=== PATIENT | male | born 1940 | race Caucasian/White ===

== ENCOUNTER → 2016-11-26 | Outpatient (CLI) | payer OTHER, MEDICARE ==
[~2016-11-26] MED LIST: ALEN70TA4 PO; ALFU10TA2 PO; ALLO300T2 PO; ASPCH81X PO; ASPI325T45 PO; CALCTAB7 PO; CPR/500 PO; DICL-201 PO; ERGO1TAB12 PO; FINA5TAB PO; FOLI1TAB7 PO; LIFI5DRO OPB; LORA10CA2 PO; LVQ750 PO; MAGN400T6 PO; MECL1TAB42 PO; METH1CHW PO; METO100T44 PO; METO50TA16 PO; METO50TA7 PO; METR-163 PO; MISO200T PO; MTR500 PO; NF656 TD; OMEG-10 PO; OMEG10007 PO; ONDA4TAB10 SL; PRLSR20 PO; ROSU20TA PO; ROSU5TAB PO; SOFTSOL OP; URSO300C4 PO
[2016-11-26 11:09] LABS: ESTIMATED AVERAGE GLUCOSE 166 mg/dl; HA1C FLAG Normal (Normal)
[2016-11-26 15:06] LABS: MAGNESIUM 1.9 mg/dl (1.8-2.4); PROSTATE SPECIFIC ANTIGEN 0.427 ng/ml (0.000-4.000)
== END | disposition home or self-care (01) ==
LOC: C.LABBC 09:11
PROVIDERS: ATTEND Urology
DX: E11.9 Type 2 diabetes mellitus without complications (principal); E83.42 Hypomagnesemia; E78.5 Hyperlipidemia, unspecified; N40.1 Benign prostatic hyperplasia with lower urinary tract symptoms; R33.9 Retention of urine, unspecified; R35.1 Nocturia

== ENCOUNTER → 2017-02-11 | Outpatient (CLI) | payer OTHER, MEDICARE ==
[~2017-02-11] MED LIST changes: -ALFU10TA2 PO; +ALFU10TA30 PO; -ASPI325T45 PO; -METO100T44 PO; +METO1TAB69 PO; -METR-163 PO; -NF656 TD; -SOFTSOL OP
== END | disposition home or self-care (01) ==
LOC: C.MAMM 10:51
PROVIDERS: ATTEND Family Medicine
DX: M85.89 Other specified disorders of bone density and structure, multiple sites (principal)

== ENCOUNTER → 2017-02-12 | Outpatient (CLI) | payer OTHER, MEDICARE ==
--- NOTE | 2017-02-12 15:16 | DIAGNOSTIC IMAGING REPORT ---
SI JOINTS 3 OR MORE VIEWS CLINICAL HISTORY: GENERALIZED OSTEOARTHRITIS OF MULTI SITES pain COMPARISON STUDY: None FINDINGS: Moderate degenerative change of the sacroiliac joints as well as low lumbar spine. Generalized osteopenia. Sacral foramina are symmetric bilaterally. No evidence of bony ankylosis. IMPRESSION: Moderate degenerative change of the sacral iliac regions bilaterally. No evidence of bony ankylosis. Osteopenia. The above report was generated using voice recognition software. It may contain grammatical, syntax or spelling errors. Electronically signed by: Guillermo Allan M.D. 02/12/2017 3:15 PM Dictated Date/Time: 02/12/2017 3:14 PM
--- NOTE | 2017-02-12 15:18 | DIAGNOSTIC IMAGING REPORT ---
RIGHT HAND MIN 3 VIEWS ROUTINE CLINICAL HISTORY: GENERALIZED OSTEOARTHRITIS OF MULTIPLE SITES, ULCERATIVE COL Right pain COMPARISON: None. DISCUSSION: Considerable degenerative change of the radiocarpal as well as intercarpal joints throughout. Severe degenerative change first carpometacarpal joint. Moderate degenerative change of the metacarpal phalangeal as well as interphalangeal joints. This is most severe at the level of the right thumb. There is no evidence for soft tissue swelling. IMPRESSION: Considerable degenerative change of the articular services of the wrist and to a lesser extent hand. The above report was generated using voice recognition software. It may contain grammatical, syntax or spelling errors. Electronically signed by: Guillermo Allan M.D. 02/12/2017 3:17 PM Dictated Date/Time: 02/12/2017 3:16 PM
--- NOTE | 2017-02-12 15:28 | DIAGNOSTIC IMAGING REPORT ---
LEFT HAND MIN 3 VIEWS ROUTINE HISTORY: 76 years-old Male GENERALIZED OSTEOARTHRITIS OF MULTIPLE SITES, ULCERATIVE COL COMPARISON: Left hand radiographs 03/19/2016 TECHNIQUE: 3 views of the left hand FINDINGS: The bones are moderately demineralized. Severe degenerative changes with adjacent fragment osteophytes, subchondral sclerosis and cystic change involves the first carpometacarpal joint. At least moderate triscaphe osteoarthritis is also noted. Chondrocalcinosis is seen within the distribution of the TFCC. At least moderate interphalangeal joint space narrowing is seen throughout all the digits, notably within the interphalangeal joint of the first digit and PIP joint of the second digit. There is no acute fracture, dislocation or erosive arthropathy. There is mild subluxation of the first metacarpophalangeal joint, likely degenerative related. There is moderate cartilage loss or arthritis. No radio opaque foreign body. IMPRESSION: 1. No acute fracture or dislocation. 2. Multifocal degenerative changes about the wrist and hand as above with severe osteoarthritis of the first carpal metacarpal joint. 3. Chondrocalcinosis of the TFCC. The above report was generated using voice recognition software. It may contain grammatical, syntax or spelling errors. Electronically signed by: Joel Gee M.D. 02/12/2017 3:26 PM Dictated Date/Time: 02/12/2017 3:24 PM
[2017-02-12 16:00] LABS: BLOOD UREA NITROGEN 21 mg/dl (7-18); BUN/CREATININE RATIO 17.5 (10-20); CALCIUM 8.8 mg/dl (8.5-10.1); CARBON DIOXIDE 27 mmol/L (21-32); CHLORIDE 110 mmol/L (98-107); GLUCOSE 111 mg/dl (70-99); POTASSIUM 4.5 mmol/L (3.5-5.1); SODIUM 141 mmol/L (136-145)
[2017-02-12 16:04] LABS: RHEUMATOID FACTOR < 10.0 U/mL (0-15); TOTAL IRON BINDING CAPACITY 434 mcg/dl (250-450)
[2017-02-13 06:20] LABS: ESTIMATED AVERAGE GLUCOSE 157 mg/dl; HA1C FLAG Normal (Normal)
== END | disposition home or self-care (01) ==
LOC: C.LAB1850 14:47
PROVIDERS: ATTEND Internal Medicine Rheumatology
DX: E11.9 Type 2 diabetes mellitus without complications (principal); K51.90 Ulcerative colitis, unspecified, without complications; M53.3 Sacrococcygeal disorders, not elsewhere classified; M85.88 Other specified disorders of bone density and structure, other site; M19.031 Primary osteoarthritis, right wrist; M19.032 Primary osteoarthritis, left wrist; M18.12 Unilateral primary osteoarthritis of first carpometacarpal joint, left hand; M11.232 Other chondrocalcinosis, left wrist

== ENCOUNTER 2017-04-26 23:42 | Inpatient (IN) | payer OTHER, MEDICARE ==
[~2017-04-26] VITALS: Ht 175.3 cm; Wt 83.0 kg
[~2017-04-26 23:42] MED LIST changes: -METO1TAB69 PO; -METO50TA7 PO; -ROSU5TAB PO
[2017-04-26] MEDS ORDERED: ONDANSETRON INJ 2 MG/ML 2 ML VIAL ONE (23:55)
[2017-04-26] MEDS ORDERED: SODIUM CHLORIDE 0.9% 1000ML 1,000 ML IV STA (23:59)
[2017-04-27] VITALS (17 sets, daily range): BP systolic 98–149; BP diastolic 50–84; PULSE 64–96; TEMP 36.5–36.7; O2SAT 90–99; Ht 175.3 cm; Wt 83.0 kg
[2017-04-27 00:10] LABS: MEAN CORPUSCULAR HGB CONC 32.8 g/dl (32-36)
[2017-04-27 00:15] LABS: PROTHROMBIN TIME (PATIENT) 10.9 SECONDS (9.0-12.0)
[2017-04-27] MEDS ORDERED: ONDANSETRON INJ 2 MG/ML 2 ML VIAL ONE (00:15)
[2017-04-27] MEDS ORDERED: OMEG10007 PO (00:23)
[2017-04-27] MEDS ORDERED: OMEG-10 PO (00:29)
[2017-04-27] MEDS ORDERED: ASPI325T45 PO (00:29)
[2017-04-27 00:30] LABS: ALB/GLOB RATIO 0.9 (0.9-2); ALKALINE PHOSPHATASE 206 U/L (45-117); ALT/SGPT 122 U/L (12-78); AST/SGOT 120 U/L (15-37); BLOOD UREA NITROGEN 14 mg/dl (7-18); BUN/CREATININE RATIO 9.8 (10-20); CALCIUM 8.9 mg/dl (8.5-10.1); CARBON DIOXIDE 15 mmol/L (21-32); CHLORIDE 105 mmol/L (98-107); GLUCOSE 204 mg/dl (70-99); MAGNESIUM 2.1 mg/dl (1.8-2.4); POTASSIUM 2.9 mmol/L (3.5-5.1); SODIUM 139 mmol/L (136-145)
[2017-04-27] MEDS ORDERED: SOFTSOL OP (00:31)
[2017-04-27] MEDS ORDERED: METR-163 PO (00:31)
[2017-04-27 00:34] LABS: BASO % 0.2 %; BASO ABS # 0.02 K/uL (0-0.2); COMPLETE YES; EOS % 0.8 %; HEMATOCRIT 42.1 % (42-52); LYMPH % 28.2 %; LYMPH ABS # 2.51 K/uL (1.2-3.4); MEAN CORPUSCULAR HEMOGLOBIN 29.5 pg (25-34); MEAN PLATELET VOLUME 13.2 fL (7.4-10.4); NEUT % 61.8 %; PLATELET COUNT 126 K/uL (130-400); PLT ESTIMATE DECREASED; RED BLOOD COUNT 4.68 M/uL (4.7-6.1); WHITE BLOOD COUNT 8.89 K/uL (4.8-10.8)
[2017-04-27 00:41] LABS: ISTAT HEMOGLOBIN 14.6 g/dl (14.0-18.0); ISTAT IONIZED CALCIUM 1.08 mmol/l (1.12-1.32)
[2017-04-27] MEDS ORDERED: DiphenhydrAMINE HCL 50 MG/ML VIAL IV STA (00:52)
[2017-04-27] MEDS ORDERED: POTASSIUM CHLORIDE 10 MEQ / 100ML WTR IV STA (00:54)
[2017-04-27] MEDS ORDERED: METOCLOPRAMIDE HCL INJ 5 MG/ML 2 ML VIAL IV SCH (01:00)
[2017-04-27] MEDS ORDERED: METRONIDAZOLE 500MG / 100ML NSS IV STA (01:01)
[2017-04-27] MEDS ORDERED: LEVAQUIN 750MG / 150ML D5W IV STA (01:01)
[2017-04-27 01:08] LABS: URINE APPEARANCE CLEAR (CLEAR); URINE COLOR DK YELLOW; URINE NITRITE NEG (NEG); URINE SPECIFIC GRAVITY 1.012 (1.000-1.030); UROBILINOGEN NEG (NEG)
[2017-04-27 01:11] LABS: MANUAL MICROSCOPIC REQUIRED? NO; REVIEW REQ? NO; URINE BILIRUBIN NEG (NEG)
[2017-04-27] MEDS ORDERED: VANCOMYCIN INJ 1,000 MG in SODIUM CHLORIDE 0.9% 250ML 250 ML IV STA (01:50)
[2017-04-27] MEDS ORDERED: PIPERACILLIN/TAZOBACTAM 4.5 GM/100ML D5W IV STA (01:50)
[2017-04-27] MEDS ORDERED: VANCOMYCIN INJ 2,000 MG in SODIUM CHLORIDE 0.9% 500ML 500 ML IV STA (01:56)
[2017-04-27] MEDS ORDERED: ONDANSETRON 4MG OD TAB SL PRN (02:00)
[2017-04-27] MEDS ORDERED: ACETAMINOPHEN 325 MG TAB PO PRN (02:00)
[2017-04-27] MEDS ORDERED: HYDROmorphone HCL 2 MG TAB PO PRN (02:00)
[2017-04-27] MEDS ORDERED: MECLIZINE HCL 25 MG TAB PO PRN (02:00)
[2017-04-27] MEDS ORDERED: LORATADINE 10 MG TAB PO PRN (02:00)
[2017-04-27] MEDS ORDERED: ONDANSETRON INJ 2 MG/ML 2 ML VIAL IV PRN ×2 (02:00)
[2017-04-27] MEDS ORDERED: ALUMINUM/MAGNESIUM/SIMETH (MAALOX MAX) 30 ML UDC PO PRN (02:00)
[2017-04-27] MEDS ORDERED: LORAZEPAM 2 MG/ML 1 ML VIAL IV PRN (02:00)
[2017-04-27] MEDS: NSS + 20MEQ KCL 1000ML 1,000 ML IV SCH ×3 (02:25→17:02)
[2017-04-27 02:37] LABS: VEN BLD GAS O2 SATURATION 80.1 %; VEN BLOOD GAS BASE EXCESS -7.9 mEq/L
--- NOTE | 2017-04-27 02:48 | EMERGENCY ROOM VISIT NOTE ---
History Report prepared by [place]: Kita Bridges Under the Supervision of: Dr. Roro Robertson D.O. 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 He presents to the ED by EMS. He was watching the game at home with his neighbor. As the game ended, he let out a groan and began foaming at the mouth and leaning to a side. He was not responding to questions. He was not shaking. When EMS arrived, he had rolled onto the floor. He was combative with EMS. He then became apneic. His oxygen saturation was 88 on room air. EMS notes that he kept gazing to the right. He would alternate between being apneic and combative. He states that he is nauseous. He denies any headache, abdominal pain, or other pain. The history is limited due to AMS. EMS noted on their stroke assessment the patient's right upper extremity was weaker than the left. 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 Social History Smoking Status: Never Smoker Marital Status: Current/Historical Medications Scheduled Alendronate Sodium (Fosamax), 70 MG PO WK Alfuzosin Hcl (Uroxatral), 10 MG PO HS Allopurinol (Zyloprim), 300 MG PO QAM Aspirin (Aspirin Chewable), 81 MG PO DAILY Calcium Carbonate-Vitamin D W/ (Caltrate 600 Plus), 1 TAB PO QAM Diclofenac (Voltaren), 75 MG PO QAM Ergocalciferol (Vitamin D2), 1.25 MG PO WK Finasteride (Proscar), 5 MG PO QPM Fish Oil ([place]-3), 1,200 MG PO QAM Folic Acid (Folvite), 1 MG PO QPM Magnesium Oxide (Mag-Ox), 400 MG PO QAM Methylcobalamin ([id number]), 1,000 MCG PO MONTHLY Metoprolol Tartrate (Lopressor) (Lopressor), 75 MG PO QAM Metoprolol Tartrate (Lopressor) (Lopressor), 100 MG PO HS Metronidazole (Flagyl), 500 MG PO daily at lunch Misoprostol (Cytotec), 200 MCG PO QAM [place]-3 Fatty Acids-Cholecalci (Dry Eye [place] Benefits/Vi), 4 CAP PO QAM Omeprazole (Prilosec), 20 MG PO QAM Rosuvastatin Calcium (Crestor), 20 MG PO HS Soft Lens Products (B & L Sensitive Eyes Plus), 1 DROP OP AMPM Ursodiol (Actigall), 300 MG PO AMPM Scheduled PRN Aspirin (Aspirin), 325 MG PO UD PRN for Migraine Ciprofloxacin (Ciprofloxacin HCl), 500 MG PO BID PRN for PSC Loratadine (Claritin), 10 MG PO QAM PRN for Seasonal Allergies Meclizine Hcl (Meclizine Hcl), 25 MG PO TID PRN for Dizziness or Vertigo Ondasetron Odt (Zofran Odt), 4 MG SL Q6H PRN for Nausea Allergies Coded Allergies: Codeine (Verified Adverse Reaction, Unknown, INTOLERANT ALL NARCOTICS EXC FENTANYL, 04/27/17) Eggs or Egg-derived Products (Verified Adverse Reaction, Unknown, rash with large quantities of egg, 04/27/17) NO ISSUE WITH PROPOFOL Flu Virus Vaccine (Verified Adverse Reaction, Unknown, pt had rash with lg quantities of egg, 04/27/17) Meperidine (Verified Adverse Reaction, Unknown, INTOLERANT ALL NARCOTICS EXC FENTANYL, 04/27/17) Morphine (Verified Adverse Reaction, Unknown, NAUSEA, VOMITING, FLUSHED, 04/27/17) NAUSEA,VOMITING,FLUSHED Physical Exam Vital Signs Date Time Temp Pulse Resp B/P (MAP) Pulse Ox O2 Delivery O2 Flow Rate FiO2 04/27/17 01:32 94 Nasal Cannula 4.0 04/27/17 01:29 99 18 130/68 94 Nasal Cannula 4.0 04/27/17 01:04 102 20 149/78 94 Nasal Cannula 4.0 04/27/17 00:53 103 20 144/71 97 Non-Rebreather 15.0 04/27/17 00:18 101 20 141/75 97 Non-Rebreather 15.0 04/26/17 23:57 104 04/26/17 23:52 36.6 106 22 85 Room Air Physical Exam GENERAL: Alert, but somnolent. NIH stroke score of 14. Pt with gagging. EYE EXAM: normal conjunctiva, PERRL and EOM's grossly intact. No gaze deviation. OROPHARYNX: no exudate, no erythema, lips, buccal mucosa, and tongue normal and mucous membranes are moist NECK: supple, no nuchal rigidity, no adenopathy, non-tender LUNGS: Diminished. No wheezes, rhonchi, rales. HEART: no murmurs, S1 normal and S2 normal ABDOMEN: abdomen soft, non-tender, normo-active bowel sounds, no pulsatile masses, no rebound or guarding. Stoma and bag in LLQ. Prior surgical scars which are well healed. BACK: Back is symmetrical on inspection and there is no deformity, no midline tenderness, no CVA tenderness. SKIN: no rashes and no bruising EXTREMITIES: Normal pulses. No pitting edema. Moving them spontaneously but will not follow commands appropriately during stroke assessment. NEURO EXAM: Pt confused with slightly slurred speech. Moving all 4 extremities spontaneously, but seems slightly weaker in RUE. Prior surgical scar which is well healed to the right shoulder. Exam limited due to patient's neuro status Medical Decision & Procedures ER Provider Diagnostic Interpretation: Xray results have been interpreted by me. KUB X-ray: No definite SBO. Sutures noted along the right abdomen which is unchanged compared to prior. Chest X-ray: Right shoulder hardware noted. No effusion. Cardiomegaly. Patient rotated. Generous mediastinum. No focal infiltrate. Poor inspiratory effort. Radiology results have been interpreted by the [facility] radiologist and reviewed by me. CT Head: No ICH, mass effect, or edema. No evidence of acute cortical stroke. Periventricular small vessel ischemic change. Limited scattered areas of encephalomalacia as visualized within the right cerebellum. Cavum septum pellucidum et vergae, variant anatomy. Limited mucosal thickening right maxillary sinus. Laboratory Results Test 04/26/17 23:51 04/27/17 00:25 04/27/17 00:28 04/27/17 00:45 RDW Standard Deviation 65.7 fL (36.4-46.3) RDW Coefficient of Variation 19.9 % (11.5-14.5) White Blood Count 8.89 K/uL (4.8-10.8) Red Blood Count 4.68 M/uL (4.7-6.1) Hemoglobin 13.8 g/dL (14.0-18.0) Hematocrit 42.1 % (42-52) Mean Corpuscular Volume 90.0 fL (80-100) Mean Corpuscular Hemoglobin 29.5 pg (25-34) Mean Corpuscular Hemoglobin Concent 32.8 g/dl (32-36) Platelet Count 126 K/uL (130-400) Mean Platelet Volume 13.2 fL (7.4-10.4) Neutrophils (%) (Auto) 61.8 % Lymphocytes (%) (Auto) 28.2 % Monocytes (%) (Auto) 8.0 % Eosinophils (%) (Auto) 0.8 % Basophils (%) (Auto) 0.2 % Neutrophils # (Auto) 5.49 K/uL (1.4-6.5) Lymphocytes # (Auto) 2.51 K/uL (1.2-3.4) Monocytes # (Auto) 0.71 K/uL (0.11-0.59) Eosinophils # (Auto) 0.07 K/uL (0-0.5) Basophils # (Auto) 0.02 K/uL (0-0.2) Immature Granulocyte % (Auto) 1.0 % Immature Granulocyte # (Auto) 0.09 K/uL (0.00-0.02) Platelet Estimate DECREASED Troponin I < 0.015 ng/ml (0-0.045) Chemistry Specimen Hemolysis Ethyl Alcohol mg/dL < 3.0 mg/dl (0-3) Bedside Glucose 213 mg/dl (70-99) Bedside Hemoglobin 14.6 g/dl (14.0-18.0) Bedside Hematocrit 43 % (42-52) Bedside Sodium 140 mEq/L (135-144) Bedside Potassium 2.6 mEq/L (3.3-5.0) Bedside Chloride 106 mEq/L (101-112) Bedside Total CO2 16 mEq/l (24-31) Bedside Blood Urea Nitrogen 13 mg/dl (7-18) Bedside Creatinine 1.0 mg/dl (0.6-1.3) Bedside Glucose (other) 237 mg/dl (70-99) Bedside Ionized Calcium ([place]) 1.08 mmol/l (1.12-1.32) Urine Color DK YELLOW Urine Appearance CLEAR (CLEAR) Urine pH 5.0 (4.5-7.5) Urine Specific [place] 1.012 (1.000-1.030) Urine Protein NEG (NEG) Urine Glucose (UA) NEG (NEG) Urine Ketones TRACE (NEG) Urine Occult Blood 1+ (NEG) Urine Nitrite NEG (NEG) Urine Bilirubin NEG (NEG) Urine Urobilinogen NEG (NEG) Urine Leukocyte Esterase TRACE (NEG) Urine WBC (Auto) 1-5 /hpf (0-5) Urine RBC (Auto) 5-10 /hpf (0-4) Urine Hyaline Casts (Auto) 1-5 /lpf (0-5) Urine Epithelial Cells (Auto) 5-10 /lpf (0-5) Urine Bacteria (Auto) NEG (NEG) Laboratory results per my review. Medications Administered Medications (Trade) Dose Ordered Sig/Alberto Route Start Time Stop Time Status Last Admin Dose Admin Ondansetron HCl (Zofran Inj) 4 mg STK-MED ONCE .ROUTE 04/26/17 23:55 04/26/17 23:56 DC 04/27/17 00:13 4 MG Sodium Chloride 1,000 ml @ 125 mls/hr Q8H STAT IV 04/26/17 23:59 04/27/17 02:43 DC 04/26/17 23:59 125 MLS/HR Ondansetron HCl (Zofran Inj) 4 mg STK-MED ONCE .ROUTE 04/27/17 00:15 04/27/17 00:16 DC 04/27/17 00:15 4 MG Metoclopramide HCl (Reglan Inj) 10 mg Q6H IV 04/27/17 01:00 04/27/17 03:21 DC 04/27/17 01:23 10 MG Diphenhydramine HCl (Benadryl Inj) 12.5 mg NOW STAT IV 04/27/17 00:52 04/27/17 00:53 DC 04/27/17 01:23 12.5 MG Potassium Chloride (Kcl 10 Meq / Wtr) 10 meq NOW STAT IV 04/27/17 00:54 04/27/17 00:56 DC 04/27/17 01:23 10 MEQ Metronidazole (Flagyl / Nss) 500 mg NOW STAT IV 04/27/17 01:01 04/27/17 01:03 DC 04/27/17 01:01 500 MG Levofloxacin (Levaquin / D5W) 750 mg NOW STAT IV 04/27/17 01:01 04/27/17 13:27 DC 04/27/17 01:23 750 MG Piperacillin Sod/ Tazobactam Sod (Zosyn Iv) 4.5 gm NOW STAT IV 04/27/17 01:50 04/27/17 01:55 DC 04/27/17 03:30 4.5 GM Potassium Chloride/Sodium Chloride 1,000 ml @ 150 mls/hr Q6H40M IV 04/27/17 01:51 05/27/17 01:50 04/28/17 01:12 150 MLS/HR Vancomycin HCl 2000 mg/Sodium Chloride 540 ml @ 200 mls/hr NOW STAT IV 04/27/17 01:56 04/27/17 04:37 DC 04/27/17 03:30 200 MLS/HR ECG Indication: altered mental status Rate (beats per minute): 106 Rhythm: sinus tachycardia Findings: no acute ischemic change, other (normal axis, normal intervals) ED Course 2349: The patient was evaluated in room A1. A complete history and physical exam was performed. 2355: Zofran Inj 4 mg IV. 2359: NSS 1000 ml @ 125 mls/hr IV. 0007: Looking through prior records, the patient is a full code as of last month. 0010: I reevaluated the patient. 0015: Zofran Inj 4 mg IV. 0016: I reevaluated the patient. is now at bedside. The patient is answering some of her questions. 0023: Dr. Woodruff the [facility] radiologist called to inform me that the head CT is negative. 0026: I reexamined the patient at bedside. I updated at bedside. Patient is still confused with slight right arm weakness and bilateral lower extremity weakness. 0032: I reevaluated the patient. I updated the stroke nurses on the plan. 0039: I discussed the patients case with Dr. Sosa [facility] neurology telemedicine. He will evaluate the patient by video link. 0043: I reevaluated the patient. I updated his on the plan. 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 She notes that he is due for an ERCP and follows at [place]. 0052: Benadryl Inj 12.5 mg IV. 0054: Potassium Chloride 10 meq IV. 0100: Reglan Inj 10 mg IV. 0101: Levofloxacin 750 mg IV, Metronidazole 500 mg IV. 0117: Dr. Sosa has evaluated the patient. He does not think tPA is needed. He thinks this might be an epileptic event. He recommends admitting the patient for MRI and EEG. 0131: I reviewed the patient's case with Dr. Lantigua's resident, [facility] hospitalist service. They will evaluate the patient for further management. 0150: The patient has been seen at bedside by Dr. Lantigua. Medical Decision Differential diagnoses includes but is not limited to toxic, metabolic, infectious, traumatic, cardiac, neurologic, hematologic, psychiatric and inflammatory etiologies. Patient initially unresponsive and EMS called, given initial findings of deviated gaze, confusion, and right upper extremity weakness, concern initially for possible stroke. Stroke alert activated and patient sent immediately for head CT. Labs and additional imaging and completed, and case discussed with [place] neurology. They didn't evaluation via the monitor at bedside. Patient slowly continued to improve here and became more awake, did not have any more episodes of apnea or oxygen desaturation. Patient's strength is fully began to improve as well. Because of patient's improving symptoms and on repeat exams lack of lateralizing or focal findings, patient was not felt to be a TPA candidate. Neurology thought perhaps patient may have even had a seizure, and recommended follow-up with MRI and EEG. While they were performing their bedside evaluation, additional labs returned on the patient showing elevated LFTs. In light of the patient's history of primary biliary sclerosis, blood cultures and lactic acid were added, and patient started on IV antibiotics as a precaution. Patient initially discussed with medicine and discussed additional imaging for further evaluation of his right upper quadrant. After discussion an MRCP was ordered. Patient's lactic acid returned at 8. Concerned that this could've been due to vomiting versus seizure versus evolving infectious etiology. Patient afebrile initially and no leukocytosis. Patient did not initially meet sepsis criteria. Patient was evaluated by the hospitalist for admission. Patient found to have hypokalemia also, initially started on IV replacement with the hope that he could be converted to oral replacement should his nausea vomiting improve. Medication Reconcilliation Current Medication List: was personally reviewed by me Blood Pressure Screening Patient's blood pressure: Elevated blood pressure Blood pressure disposition: Elevated BP felt to be situational Consults Time Called: 28 Consulting Physician: Dr. Sosa, [facility] neurology telemedicine Returned Call: [phone] I discussed the patients case with him. He will evaluate the patient by video link. Additional Consults: Time Called: 012 Consulted Physician: Dr. Lantigua's resident, [facility] hospitalist service Returned Call: [phone] Additional Comments: I reviewed the patient's case with her. They will evaluate the patient for further management. Impression Primary Impression: Unresponsive episode Additional Impressions: Confusion Abnormal LFTs Vomiting Hypokalemia Critical Care I have personally spent 45 minutes of critical care time in the direct management of this patient. This includes bedside care, interpretation of diagnostic studies, and testing, discussion with consultants, patient, and family members, and other required patient management activities. This 45 minutes is in excess of all separately billable procedures. Scribe Attestation The scribe's documentation has been prepared under my direction and personally reviewed by me in its entirety. I confirm that the note above accurately reflects all work, treatment, procedures, and medical decision making performed by me. Departure Information Dispostion Being Evaluated By Hospitalist Referrals Tom Bucio M.D. (PCP) Stroke History Time Last Known Well 2300 Stroke t-PA Criteria Reviewed Does NOT meet criteria for t-PA Reason t-PA Not Given Treatment not indicated Problem Qualifiers Additional Impressions: Vomiting Vomiting type: unspecified Vomiting Intractability: unspecified Nausea presence: with nausea Qualified Codes: R11.2 - Nausea with vomiting, unspecified
[2017-04-27] MEDS ORDERED: PIPERACILL/TAZOBAC CONSULT ACTIVE PRN (03:30)
[2017-04-27] MEDS ORDERED: VANCOMYCIN CONSULT ACTIVE PRN (03:30)
[2017-04-27] MEDS ORDERED: NURSING VERBAL MED ORDER ONE ×2 (03:45→09:15)
[2017-04-27] MEDS: HYDROmorphone INJ 0.5 MG/0.5 ML SYR IV PRN ×2 (03:56→06:43)
--- NOTE | 2017-04-27 05:18 | History and Physical ---
History & Physical Date & Time of Service: Apr 27, 2017 at 04:55 Chief Complaint: Primary Sclerosing Cholangitis, Sepsis Primary Care Physician: Tom Bucio M.D. History of Present Illness Source: patient, spouse, hospital records This is a 77 y/o M w/ a h/o of PSC, illeostomy, CAD s/p Stent who presents to the ED via ALS becoming unresponsive at home while watching the football game today with his neighbour. He was noted to be falling to the ground as his neighbor attempted to control his fall. He was not responsive when EMS arrived and there were plans to intubate because of increased secretions. EMS found that had episodes of combativeness and apnea. He was evaluated by Tele-neuro and thought to have seizures possibly > stroke Patient's is in the room and reports that he has therapeutic ERCP's every 3 months at [facility] and is about due for one now. She reports that this might be an evolution of his PSC. Patient is awake but altered and unable to answer any questions. Past Medical/Surgical History Medical Problems: (1) CALCULUS OF KIDNEY Status: Resolved (2) CALCULUS OF URETER Status: Resolved (3) CORONARY ATHEROSCLEROSIS OF [place] CORONARY VESSEL Status: Chronic (4) Creation of ileostomy Status: Resolved (5) KNEE JOINT REPLACEMENT STATUS Status: Resolved (6) PERCUTANEOUS TRANSLUM CORON ANGIOPLASTY STATUS Status: Resolved (7) Primary sclerosing cholangitis Status: Chronic (8) VENOUS EMBOLISM & THROMBOSIS OF SUPERFICIAL VESSELS OF LE Status: Resolved Family History Noncontributory Social History Smoking Status: Never Smoker Smokeless Tobacco Use: No Alcohol Use: none Drug Use: none Marital Status: Housing status: lives with significant other Occupational Status: retired Immunizations History of Influenza Vaccine: No History of Tetanus Vaccine?: No Tetanus Immunization Date: Sep 22, 2004 History of Pneumococcal: Yes History of Hepatitis B Vaccine: Yes Hepatitis Immunization Date: Sep 22, 1996 Multi-Drug Resistant Organisms History of MDRO: No Allergies Coded Allergies: Codeine (Verified Adverse Reaction, Unknown, INTOLERANT ALL NARCOTICS EXC FENTANYL, 04/27/17) Eggs or Egg-derived Products (Verified Adverse Reaction, Unknown, rash with large quantities of egg, 04/27/17) NO ISSUE WITH PROPOFOL Flu Virus Vaccine (Verified Adverse Reaction, Unknown, pt had rash with lg quantities of egg, 04/27/17) Meperidine (Verified Adverse Reaction, Unknown, INTOLERANT ALL NARCOTICS EXC FENTANYL, 04/27/17) Morphine (Verified Adverse Reaction, Unknown, NAUSEA, VOMITING, FLUSHED, 04/27/17) NAUSEA,VOMITING,FLUSHED Home Medications Scheduled Alendronate Sodium (Fosamax), 70 MG PO WK Alfuzosin Hcl (Uroxatral), 10 MG PO HS Allopurinol (Zyloprim), 300 MG PO QAM Aspirin (Aspirin Chewable), 81 MG PO DAILY Calcium Carbonate-Vitamin D W/ (Caltrate 600 Plus), 1 TAB PO QAM Diclofenac (Voltaren), 75 MG PO QAM Ergocalciferol (Vitamin D2), 1.25 MG PO WK Finasteride (Proscar), 5 MG PO QPM Fish Oil (Corral-3), 1,200 MG PO QAM Folic Acid (Folvite), 1 MG PO QPM Magnesium Oxide (Mag-Ox), 400 MG PO QAM Methylcobalamin (T47-Admnex), 1,000 MCG PO MONTHLY Metoprolol Tartrate (Lopressor) (Lopressor), 75 MG PO QAM Metoprolol Tartrate (Lopressor) (Lopressor), 100 MG PO HS Metronidazole (Flagyl), 500 MG PO daily at lunch Misoprostol (Cytotec), 200 MCG PO QAM Corral-3 Fatty Acids-Cholecalci (Dry Eye Corral Benefits/Vi), 4 CAP PO QAM Omeprazole (Prilosec), 20 MG PO QAM Rosuvastatin Calcium (Crestor), 20 MG PO HS Soft Lens Products (B & L Sensitive Eyes Plus), 1 DROP OP AMPM Ursodiol (Actigall), 300 MG PO AMPM Scheduled PRN Aspirin (Aspirin), 325 MG PO UD PRN for Migraine Ciprofloxacin (Ciprofloxacin HCl), 500 MG PO BID PRN for PSC Loratadine (Claritin), 10 MG PO QAM PRN for Seasonal Allergies Meclizine Hcl (Meclizine Hcl), 25 MG PO TID PRN for Dizziness or Vertigo Ondasetron Odt (Zofran Odt), 4 MG SL Q6H PRN for Nausea Physical Exam Vital Signs Date Time Temp Pulse Resp B/P (MAP) Pulse Ox O2 Delivery O2 Flow Rate FiO2 04/27/17 03:00 36.5 96 26 98/52 96 Nasal Cannula 4.0 04/27/17 02:06 106 20 100/56 93 Nasal Cannula 4.0 04/27/17 01:32 94 Nasal Cannula 4.0 04/27/17 01:29 99 18 130/68 94 Nasal Cannula 4.0 04/27/17 01:04 102 20 149/78 94 Nasal Cannula 4.0 04/27/17 00:53 103 20 144/71 97 Non-Rebreather 15.0 04/27/17 00:18 101 20 141/75 97 Non-Rebreather 15.0 04/26/17 23:57 104 04/26/17 23:52 36.6 106 22 85 Room Air General Appearance: no apparent distress Eyes: PERRL, EOMI Respiratory/Chest: no respiratory distress, no accessory muscle use, + decreased breath sounds Cardiovascular: no murmur, normal peripheral pulses, + tachycardia Abdomen/GI: normal bowel sounds, non tender, soft, + pertinent finding ( illeostomy in place) Extremities/Musculoskelatal: no calf tenderness, no pedal edema Neurologic/Psych: + disoriented Diagnostics Laboratory Results Results Past 24 Hours Test 04/26/17 23:51 04/27/17 00:25 04/27/17 00:28 04/27/17 00:45 Range/Units White Blood Count 8.89 4.8-10.8 K/uL Red Blood Count 4.68 4.7-6.1 M/uL Hemoglobin 13.8 14.0-18.0 g/dL Hematocrit 42.1 42-52 % Mean Corpuscular Volume 90.0 80-100 fL Mean Corpuscular Hemoglobin 29.5 25-34 pg Mean Corpuscular Hemoglobin Concent 32.8 32-36 g/dl Platelet Count 126 130-400 K/uL Mean Platelet Volume 13.2 7.4-10.4 fL Neutrophils (%) (Auto) 61.8 % Lymphocytes (%) (Auto) 28.2 % Monocytes (%) (Auto) 8.0 % Eosinophils (%) (Auto) 0.8 % Basophils (%) (Auto) 0.2 % Neutrophils # (Auto) 5.49 1.4-6.5 K/uL Lymphocytes # (Auto) 2.51 1.2-3.4 K/uL Monocytes # (Auto) 0.71 0.11-0.59 K/uL Eosinophils # (Auto) 0.07 0-0.5 K/uL Basophils # (Auto) 0.02 0-0.2 K/uL RDW Standard Deviation 65.7 36.4-46.3 fL RDW Coefficient of Variation 19.9 11.5-14.5 % Immature Granulocyte % (Auto) 1.0 % Immature Granulocyte # (Auto) 0.09 0.00-0.02 K/uL Platelet Estimate DECREASED Prothrombin Time 10.9 9.0-12.0 SECONDS Prothromb Time International Ratio 1.0 0.9-1.1 Sodium Level 139 136-145 mmol/L Potassium Level 2.9 3.5-5.1 mmol/L Chloride Level 105 98-107 mmol/L Carbon Dioxide Level 15 21-32 mmol/L Anion Gap 19.0 22.0 16-25 mmol/L Blood Urea Nitrogen 14 7-18 mg/dl Creatinine 1.40 0.60-1.40 mg/dl Est Creatinine Clear Calc Drug Dose 47.0 ml/min Estimated GFR () 55.0 Estimated GFR (Non- 47.5 BUN/Creatinine Ratio 9.8 10-20 Random Glucose 204 70-99 mg/dl Calcium Level 8.9 8.5-10.1 mg/dl Magnesium Level 2.1 1.8-2.4 mg/dl Total Bilirubin 2.4 0.2-1 mg/dl Aspartate Amino Transf (AST/SGOT) 120 15-37 U/L Alanine Aminotransferase (ALT/SGPT) 122 12-78 U/L Alkaline Phosphatase 206 45-117 U/L Troponin I < 0.015 0-0.045 ng/ml Total Protein 7.4 6.4-8.2 gm/dl Albumin 3.5 3.4-5.0 gm/dl Globulin 3.9 2.5-4.0 gm/dl Albumin/Globulin Ratio 0.9 0.9-2 Chemistry Specimen Hemolysis Ethyl Alcohol mg/dL < 3.0 0-3 mg/dl Bedside Glucose 213 70-99 mg/dl Bedside Hemoglobin 14.6 14.0-18.0 g/dl Bedside Hematocrit 43 42-52 % Bedside Sodium 140 135-144 mEq/L Bedside Potassium 2.6 3.3-5.0 mEq/L Bedside Chloride 106 101-112 mEq/L Bedside Total CO2 16 24-31 mEq/l Bedside Blood Urea Nitrogen 13 7-18 mg/dl Bedside Creatinine 1.0 0.6-1.3 mg/dl Bedside Glucose (other) 237 70-99 mg/dl Lactic Acid Level 8.0 0.4-2.0 mmol/L Bedside Ionized Calcium (Ventura) 1.08 1.12-1.32 mmol/l Urine Color DK YELLOW Urine Appearance CLEAR CLEAR Urine pH 5.0 4.5-7.5 Urine Specific [place] 1.012 1.000-1.030 Urine Protein NEG NEG Urine Glucose (UA) NEG NEG Urine Ketones TRACE NEG Urine Occult Blood 1+ NEG Urine Nitrite NEG NEG Urine Bilirubin NEG NEG Urine Urobilinogen NEG NEG Urine Leukocyte Esterase TRACE NEG Urine WBC (Auto) 1-5 0-5 /hpf Urine RBC (Auto) 5-10 0-4 /hpf Urine Hyaline Casts (Auto) 1-5 0-5 /lpf Urine Epithelial Cells (Auto) 5-10 0-5 /lpf Urine Bacteria (Auto) NEG NEG Test 04/27/17 02:25 Range/Units Venous Blood pH 7.33 7.36-7.41 Venous Blood Partial Pressure CO2 33 38.0-50.0 mmHg Venous Blood Partial Pressure O2 50 mmHg Venous Blood HCO3 17 mmol/L Venous Blood Oxygen Saturation 80.1 % Venous Blood Base Excess -7.9 mEq/L Microbiology Results 04/27/17 Blood Culture, Received Pending 04/27/17 Blood Culture, Received Pending 04/27/17 MRSA DNA Surveillance Screen, Received Pending 04/27/17 Urine Culture, Received Pending Impression Assessment and Plan This is a 77 y/o M with AMS likely 2/2 Cholangitis: Encephalopathy 2/2 Bacterial Cholangitis (stroke/seizures less likely) - Head CT negative for acute cva - Vanc, Zosyn, Levaquin - Blood cultures pending - NPO - IV Fluids - Abdominal / Pelvis CT - MRCP - Admit to ICU - Lactate of 8 - Consult GI - Consult surg rn - Continue ursodiol Hypokelamia IVF with K Recheck BMP h/o CAD: - continue Aspirin, metoprolol, crestor BPH: Alfuzosin and Finasteride VTE Prophylaxis - hold chemical prophylaxis - SCDs + TEDs Code - Full Attending Addendum: I have physically seen and examined this patient, have directed the resident's medical activities, and agree with the H&P as noted above with the following exceptions as noted. The patient is awake, alert and oriented 3, has rigors, lying in bed and in moderate distress. HEENT--PERRL, EOMI, mucous membranes and oropharynx dry. Neck--supple, no JVD or bruits, thyroid normal, trachea midline, no adenopathy. Heart--tachycardic and regular, no murmurs, rubs or gallops. Lungs--clear bilaterally with good air movement, no respiratory distress, no accessory muscle use. Abdomen--normal bowel sounds and soft, generalized tenderness, nondistended. Extremities--no cyanosis, clubbing or edema. There are good distal pulses b/l. Dermatologic--normal skin turgor, normal color, warm and dry, no abnormal lymph nodes, no rash. Neurologic--cranial nerves II through XII grossly intact. Rheumatologic--normal range of motion. Psychiatric--normal affect. Assessment and Plan: Primary sclerosing cholangitis/sepsis due to secondary bacterial infection-- Admitted to the ICU. Vancomycin IV, Zosyn IV and Levaquin IV. Monitor for development of hypotension. Nothing by mouth except medications. NSS with KCl 20 mEq at 150 ML's per hour. MRCP. CT of abdomen and pelvis Famotidine 20 mg IV every 12 hours. Zofran 4 mg IV every 6 hours when necessary Consult surg rn Consult gastroenterology CAD/hypertension-- Continue aspirin. Continue metoprolol with hold parameters. Hyperlipidemia-- Continue Crestor. BPH-- Continue alfuzosin and finasteride. Level of Care Critical Care Advanced Directives Existing Advance Directive: No Existing Living Will: No Existing Power of Flash Welder: No Resuscitation Status FULL RESUSCITATION VTE Prophylaxis VTE Risk Assessment Done? Y/N: Yes Risk Level: Moderate Given or contraindicated: SCD's Social Service Consult None Apply Note Total Time: Critical Care 30 - 74 minutes
[2017-04-27 06:28] LABS: ALB/GLOB RATIO 0.8 (0.9-2); CALCIUM 7.8 mg/dl (8.5-10.1); CREATININE 1.06 mg/dl (0.60-1.40); POTASSIUM 3.7 mmol/L (3.5-5.1)
--- NOTE | 2017-04-27 06:49 | DIAGNOSTIC IMAGING REPORT ---
CT HEAD WITHOUT CONTRAST (CT) CLINICAL HISTORY: Change in mental status. Unresponsive episode. COMPARISON STUDY: No previous studies for comparison. TECHNIQUE: Axial CT of the brain is performed from the vertex to the skull base. IV contrast was not administered for this examination. A dose lowering technique was utilized adhering to the principles of ALARA. CT DOSE: 614.27 mGy.cm FINDINGS: No intra or extra-axial mass lesions are visualized. There is no CT evidence of acute cortical infarction. There is no evidence of midline shift. There is no acute hemorrhage. No calvarial fractures are visualized. There are patchy white matter hypodensities likely on a small vessel basis. There are scattered lacunar infarcts. There is no hydrocephalus. There is a cavum septa pellucida and cavum vergae. There is no evidence of acute sinusitis IMPRESSION: No acute intracranial findings Electronically signed by: Anderson Dietrich M.D. 04/27/2017 6:48 AM Dictated Date/Time: 04/27/2017 6:45 AM
--- NOTE | 2017-04-27 06:51 | DIAGNOSTIC IMAGING REPORT ---
CHEST ONE VIEW PORTABLE CLINICAL HISTORY: Unresponsive episode COMPARISON STUDY: 03/19/2017 FINDINGS: The heart is enlarged. There is mild fullness of the right paratracheal/mediastinal region which could be related to technical factors. There is no failure. There is no lobar consolidation. No significant pleural effusions are visualized. There are postsurgical changes involving the right shoulder.[ IMPRESSION: 1. Cardiomegaly 2. No evidence of failure. No evidence of focal pulmonary consolidation 3. Soft tissue prominence of the right paratracheal region, a finding which may relate to technical factors Electronically signed by: Anderson Dietrich M.D. 04/27/2017 6:50 AM Dictated Date/Time: 04/27/2017 6:49 AM
--- NOTE | 2017-04-27 06:54 | DIAGNOSTIC IMAGING REPORT ---
KUB CLINICAL HISTORY: Nausea and vomiting COMPARISON STUDY: No previous studies for comparison. FINDINGS: There is no pathologic bowel dilatation. Multiple metallic sutures are visualized within the right and central abdomen. There is a tubular radiopaque structure projected over the right abdomen. This is of uncertain etiology. This may be extraneous to the patient. There is a left lower quadrant ostomy. IMPRESSION: No evidence of pathologic bowel dilatation. Tubular radiopaque structure projected over the right abdomen of uncertain etiology. Electronically signed by: Anderson Dietrich M.D. 04/27/2017 6:53 AM Dictated Date/Time: 04/27/2017 6:51 AM
[2017-04-27] MEDS ORDERED: ENOXAPARIN 40 MG/0.4 ML SYR SQ SCH (09:00)
[2017-04-27 09:09] LABS: C-REACTIVE PROTEIN 0.95 mg/dl (0-0.29)
[2017-04-27] MEDS: PIPERACILL/TAZOBAC IV 4.5 GM in DEXTROSE 5% 100ML 100 ML IV SCH ×2 (09:25→15:57)
[2017-04-27] MEDS: URSODIOL 300 MG CAP PO SCH ×2 (09:29→21:12)
[2017-04-27] MEDS: OMEGA-3 (PURIFIED FISH OIL) 1 GM CAP PO SCH (09:29)
[2017-04-27] MEDS: MISOPROSTOL 200 MCG TAB PO SCH (09:30)
[2017-04-27] MEDS ORDERED: OXYCODONE HCL IR 5 MG TAB (IMMEDIATE RELEASE) PO PRN (09:30)
[2017-04-27] MEDS: METOPROLOL TARTRATE 50 MG TAB PO SCH ×2 (09:31→21:13)
[2017-04-27] MEDS: ALLOPURINOL 300 MG TAB PO SCH (09:32)
[2017-04-27] MEDS: ASPIRIN 81 MG CHEW PO SCH (09:32)
[2017-04-27] MEDS: DICLOFENAC SOD EC 75 MG TABCR PO SCH (09:33)
[2017-04-27] MEDS: MAGNESIUM OXIDE 400 MG TAB PO SCH (09:33)
[2017-04-27] MEDS: CALCIUM 600MG + VIT D 400 IU TAB PO SCH (09:37)
[2017-04-27] MEDS: PANTOprazole INJ 40 MG in SYRINGE 0 ML IV SCH (09:37)
--- NOTE | 2017-04-27 09:50 | Gastrointestinal Consultation ---
Gastrointestinal Consultation Date of Consultation: Apr 27, 2017 Attending Physician: Anurag Colon MD Consulting Physician: Malik Schaefer Reason for Consultation: cholangitis History of Present Illness Patient is a 77 year old male admitted with what sounds like syncope while watching game. No remember what happened . No evidence of seizure. Appears that he was back in a short time. No intubated. Found to be mildly hypoxic. NO ABDOMINAL PAIN. Next month to have routine ERCP to "clean the duct". Has had diagnosis of UC, s/sp colectomy, PSC: was on transplant list for a long time at [place]. Gets Q 3 month ERCP routinely. No clear history of cirrhosis. Past Medical/Surgical History Medical Problems: (1) Abnormal LFTs Status: Acute (2) Cholangitis Status: Acute (3) Confusion Status: Acute (4) Hypokalemia Status: Acute (5) Hypoxia Status: Acute (6) Pneumonitis Status: Acute (7) Thrombocytopenia Status: Acute (8) Unresponsive episode Status: Acute (9) Vomiting Status: Acute Social History Smoking Status: Never Smoker Marital Status: Housing Status: lives with family Allergies Coded Allergies: Codeine (Verified Adverse Reaction, Unknown, INTOLERANT ALL NARCOTICS EXC FENTANYL, 04/27/17) Eggs or Egg-derived Products (Verified Adverse Reaction, Unknown, rash with large quantities of egg, 04/27/17) NO ISSUE WITH PROPOFOL Flu Virus Vaccine (Verified Adverse Reaction, Unknown, pt had rash with lg quantities of egg, 04/27/17) Meperidine (Verified Adverse Reaction, Unknown, INTOLERANT ALL NARCOTICS EXC FENTANYL, 04/27/17) Morphine (Verified Adverse Reaction, Unknown, NAUSEA, VOMITING, FLUSHED, 04/27/17) NAUSEA,VOMITING,FLUSHED Current Medications Home Meds and Scripts Medications Dose Route/Sig Max Daily Dose Days Date Category Dose Instructions Flagyl (Metronidazole) 500 Mg Tab 500 Mg PO DAILY AT LUNCH 04/27/17 Reported B & L Sensitive Eyes Plus (Soft Lens Products) 1 Yoselyn Yoselyn 1 Drop OP AMPM 04/27/17 Reported Dry Eye Mabel Benefits/Vi (Mabel-3 Fatty Acids-Cholecalci) 1 Cap Cap 4 Cap PO QAM 04/27/17 Reported Aspirin 325 Mg Tab 325 Mg PO UD PRN 04/27/17 Reported Mabel-3 (Fish Oil) 1 Ea Cap 1,200 Mg PO QAM 04/27/17 Reported Zofran Odt (Ondansetron HCl) 4 Mg Tab 4 Mg SL Q6H PRN 03/20/17 Rx Vitamin D2 (Ergocalciferol) 2,000 Unit Tab 1.25 Mg PO WK 03/19/17 Reported Crestor (Rosuvastatin Calcium) 20 Mg Tab 20 Mg PO HS 03/19/17 Reported Lopressor (Metoprolol Tartrate) 50 Mg Tab 100 Mg PO HS 03/19/17 Reported Lopressor (Metoprolol Tartrate) 50 Mg Tab 75 Mg PO QAM 03/19/17 Reported Mag-Ox (Magnesium Oxide) 400 Mg Tab 400 Mg PO QAM 04/23/16 Reported L80-Uxhbaj (Methylcobalamin) 1 Mg Chw 1,000 Mcg PO MONTHLY 04/23/16 Reported Claritin (Loratadine) 10 Mg Cap 10 Mg PO QAM PRN 04/23/16 Reported Proscar (Finasteride) 5 Mg Tab 5 Mg PO QPM 04/23/16 Reported DAILY AT DINNER Aspirin Chewable (Aspirin) 81 Mg Chew 81 Mg PO DAILY 04/23/16 Reported TAKES DAILY WITH LUNCH Cytotec (Misoprostol) 200 Mcg Tab 200 Mcg PO QAM 04/23/16 Reported Voltaren (Diclofenac Sodium) 75 Mg Tabcr 75 Mg PO QAM 04/23/16 Reported WITH FOOD Actigall (Ursodiol) 300 Mg Cap 300 Mg PO AMPM 03/19/16 Reported Uroxatral (Alfuzosin HCl) 10 Mg Tab 10 Mg PO HS 03/19/16 Reported Ciprofloxacin HCl (Ciprofloxacin) 500 Mg Tab 500 Mg PO BID PRN 03/19/16 Reported NEEDED WITH PSC ATTACK Meclizine Hcl 25 Mg Tab 25 Mg PO TID PRN 03/19/16 Reported Zyloprim (Allopurinol) 300 Mg Tab 300 Mg PO QAM 03/19/16 Reported Fosamax (Alendronate Sodium) 70 Mg Tab 70 Mg PO WK 03/19/16 Reported TAKE THIS MEDICATION EVERY FRIDAY Caltrate 600 Plus (Calcium Carbonate-Vitamin D W/) 1 Tab Tab 1 Tab PO QAM 03/19/16 Reported TAKES DAILY AT 1200 Folvite (Folic Acid) 1 Mg Tab 1 Mg PO QPM 06/10/12 Reported DAILY WITH DINNER Prilosec (Omeprazole) 20 Mg Capcr 20 Mg PO QAM 01/25/10 Reported Review of Systems Constitutional: + fever (Notes "low grade fevers" for last couple weeks, sign for him that he is about to need his ERCP) Respiratory: No cough, No shortness of breath Cardiac: No chest pain Abdomen: + nausea, + dark urine (No change in bowels. has had retching/dry heaves), No jaundice Musculoskeletal: + joint pain Neuro: + see HPI Endo: + fatigue Skin: No itch, No color change Physical Exam Date Time Temp Pulse Resp B/P (MAP) Pulse Ox O2 Delivery O2 Flow Rate FiO2 04/27/17 06:31 73 16 117/57 (77) 97 04/27/17 06:16 71 16 117/60 (79) 99 04/27/17 06:01 72 15 107/52 (70) 97 Oxymask 4.0 04/27/17 05:46 75 19 105/74 (84) 99 04/27/17 05:31 74 19 100/56 (71) 96 04/27/17 05:16 77 16 117/68 (84) 91 04/27/17 05:01 78 17 118/65 (82) 90 04/27/17 04:46 80 16 110/78 (89) 95 Oxymask 4.0 04/27/17 04:07 85 18 109/67 (81) 90 Nasal Cannula 4.0 Oxymask 04/27/17 03:46 79 10 104/50 (68) 97 Nasal Cannula 4.0 Oxymask 04/27/17 03:30 87 19 106/58 (74) 95 Nasal Cannula 4.0 Oxymask 04/27/17 03:00 36.5 96 26 98/52 96 Nasal Cannula 4.0 04/27/17 02:06 106 20 100/56 93 Nasal Cannula 4.0 04/27/17 01:32 94 Nasal Cannula 4.0 04/27/17 01:29 99 18 130/68 94 Nasal Cannula 4.0 04/27/17 01:04 102 20 149/78 94 Nasal Cannula 4.0 04/27/17 00:53 103 20 144/71 97 Non-Rebreather 15.0 04/27/17 00:18 101 20 141/75 97 Non-Rebreather 15.0 04/26/17 23:57 104 04/26/17 23:52 36.6 106 22 85 Room Air General Appearance: no apparent distress, + mild distress Neck: no JVD Cardiovascular: regular rate, rhythm, no edema, no JVD Abdomen: non tender, soft (Note hernia below ileostomy), no organomegaly (No ascites) Extremities: non-tender, no pedal edema Neurologic/Psych: normal mood/affect ( 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!) Skin: normal color, no jaundice, warm/dry, no rash Laboratory Results Last 24 Hours Test 04/26/17 23:51 04/27/17 00:25 04/27/17 00:28 04/27/17 00:45 White Blood Count 8.89 K/uL Red Blood Count 4.68 M/uL Hemoglobin 13.8 g/dL Hematocrit 42.1 % Mean Corpuscular Volume 90.0 fL Mean Corpuscular Hemoglobin 29.5 pg Mean Corpuscular Hemoglobin Concent 32.8 g/dl Platelet Count 126 K/uL Mean Platelet Volume 13.2 fL Neutrophils (%) (Auto) 61.8 % Lymphocytes (%) (Auto) 28.2 % Monocytes (%) (Auto) 8.0 % Eosinophils (%) (Auto) 0.8 % Basophils (%) (Auto) 0.2 % Neutrophils # (Auto) 5.49 K/uL Lymphocytes # (Auto) 2.51 K/uL Monocytes # (Auto) 0.71 K/uL Eosinophils # (Auto) 0.07 K/uL Basophils # (Auto) 0.02 K/uL RDW Standard Deviation 65.7 fL RDW Coefficient of Variation 19.9 % Immature Granulocyte % (Auto) 1.0 % Immature Granulocyte # (Auto) 0.09 K/uL Platelet Estimate DECREASED Prothrombin Time 10.9 SECONDS Prothromb Time International Ratio 1.0 Sodium Level 139 mmol/L Potassium Level 2.9 mmol/L Chloride Level 105 mmol/L Carbon Dioxide Level 15 mmol/L Anion Gap 19.0 mmol/L 22.0 mmol/L Blood Urea Nitrogen 14 mg/dl Creatinine 1.40 mg/dl Est Creatinine Clear Calc Drug Dose 47.0 ml/min Estimated GFR () 55.0 Estimated GFR (Non- 47.5 BUN/Creatinine Ratio 9.8 Random Glucose 204 mg/dl Calcium Level 8.9 mg/dl Magnesium Level 2.1 mg/dl Total Bilirubin 2.4 mg/dl Aspartate Amino Transf (AST/SGOT) 120 U/L Alanine Aminotransferase (ALT/SGPT) 122 U/L Alkaline Phosphatase 206 U/L Troponin I < 0.015 ng/ml Total Protein 7.4 gm/dl Albumin 3.5 gm/dl Globulin 3.9 gm/dl Albumin/Globulin Ratio 0.9 Chemistry Specimen Hemolysis Ethyl Alcohol mg/dL < 3.0 mg/dl Bedside Glucose 213 mg/dl Bedside Hemoglobin 14.6 g/dl Bedside Hematocrit 43 % Bedside Sodium 140 mEq/L Bedside Potassium 2.6 mEq/L Bedside Chloride 106 mEq/L Bedside Total CO2 16 mEq/l Bedside Blood Urea Nitrogen 13 mg/dl Bedside Creatinine 1.0 mg/dl Bedside Glucose (other) 237 mg/dl Lactic Acid Level 8.0 mmol/L Bedside Ionized Calcium ([place]) 1.08 mmol/l Urine Color DK YELLOW Urine Appearance CLEAR Urine pH 5.0 Urine Specific [place] 1.012 Urine Protein NEG Urine Glucose (UA) NEG Urine Ketones TRACE Urine Occult Blood 1+ Urine Nitrite NEG Urine Bilirubin NEG Urine Urobilinogen NEG Urine Leukocyte Esterase TRACE Urine WBC (Auto) 1-5 /hpf Urine RBC (Auto) 5-10 /hpf Urine Hyaline Casts (Auto) 1-5 /lpf Urine Epithelial Cells (Auto) 5-10 /lpf Urine Bacteria (Auto) NEG Test 04/27/17 02:25 04/27/17 05:30 04/27/17 08:23 Venous Blood pH 7.33 Venous Blood Partial Pressure CO2 33 mmHg Venous Blood Partial Pressure O2 50 mmHg Venous Blood HCO3 17 mmol/L Venous Blood Oxygen Saturation 80.1 % Venous Blood Base Excess -7.9 mEq/L Sodium Level 139 mmol/L Potassium Level 3.7 mmol/L Chloride Level 110 mmol/L Carbon Dioxide Level 20 mmol/L Anion Gap 9.0 mmol/L Blood Urea Nitrogen 15 mg/dl Creatinine 1.06 mg/dl Est Creatinine Clear Calc Drug Dose 56.5 ml/min Estimated GFR () 77.0 Estimated GFR (Non- 66.4 BUN/Creatinine Ratio 14.0 Random Glucose 231 mg/dl Lactic Acid Level 1.6 mmol/L Calcium Level 7.8 mg/dl Total Bilirubin 2.1 mg/dl Aspartate Amino Transf (AST/SGOT) 82 U/L Alanine Aminotransferase (ALT/SGPT) 97 U/L Alkaline Phosphatase 162 U/L Total Protein 5.9 gm/dl Albumin 2.6 gm/dl Globulin 3.3 gm/dl Albumin/Globulin Ratio 0.8 C-Reactive Protein 0.95 mg/dl Procalcitonin 2.62 ng/ml Impression Patient is a 77 year old male who lost conscious ness for unclear reasons. No evidence now to suggest cholangitis: normal WBC, no RUQ pain or significant tenderness, No bilirubin in urine despite total bili of 2.4 suggesting unconjugated bilirubin. Work up showed hypokalemia, hypoxia. He is on NSAIDS and may explain why he has dry heaves. rule out gastritis. Recc: Fractionate bilirubin Correct metabolic abnormalities Consider DC antibiotics Consider ERCP here instead of travel to [place] just for the procedure. Check out gastric mucosa on next exam. Consider PE in the differential
--- NOTE | 2017-04-27 10:36 | Pharmacy Progress Note ---
Pharmacy Abx Dose Short Note Date of Service Apr 27, 2017. Assessment & Plan Item Value Date Time MRSA DNA Surveillance Screen - Final Complete 04/27/17 0300 Nasal Specimen Positive for MRSA by DNA Probe Blood Culture Received 04/27/17 0125 Blood Pending Blood Culture Received 04/27/17 0120 Blood Pending Urine Culture Received 04/27/17 0045 Urine,Catheterized Pending White Blood Count 8.89 K/uL 04/26/17 2351 Creatinine 1.06 mg/dl 04/27/17 0530 Est Creatinine Clear Calc Drug Dose 56.5 ml/min 04/27/17 0530 Creatinine 1.40 mg/dl 04/26/17 2351 Est Creatinine Clear Calc Drug Dose 47.0 ml/min 04/26/17 2351 Assessment/Plan * 77 year old male receiving VANC/ZOSYN/Levaquin-IV for treatment of bacterial cholangitis * Day # 07/16 of antimicrobial therapy. Plan Vancomycin * Estimated p'kinetics: Vd~0.7L/kg, Ke~0.0509hr-1, T1/2~13.5hrs * LOADING DOSE: Vanc 2 grams (~25mg/kg) IV x 1, then... * MAINTENANCE DOSE: VANC 1250mg (~15mg/kg) IV every 16 hours * Goal trough level: 15 to 20 mcg/mL * VANC Trough level @ Css prior to 04/29/17 0200 dose ZOSYN-IV: 4.5 gram IV x 1, then 4.5grams IV CI every 8 hours. LVQ-IV: 750mg IV every 24 hours for est GFR > 49mL/min. Pharmacy will continue to follow and will adjust dose/frequency as necessary. Thank you.
--- NOTE | 2017-04-27 12:58 | Critical Care Consultation ---
Critical Care Consultation Date of Consultation: Apr 27, 2017. Attending Physician: Sondra Ingram M.D. Reason for Consultation: Acute change in mentation, suspected seizure. History of Present Illness I personally examined this patient, reviewed his clinical and laboratory data, interpreted his x-ray, CT scan of the head and formulated further plan of care. 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 He stated that for the last 2 weeks he hasn't felt well. He complained of feeling fatigued and having low grade fever, metallic taste in his mouth. This is his usual presentation of ascending cholangitis which untreated usually gets worse. Patient is being followed at [facility] oncologist Dr. Mcclellan for ERCP every 3 months. The last one was in February. The next one was due in May. Patient was watching the [employer] game. The last thing he remembered this score 42:13 when he said "whou could have expected that". Next thing he remembers being in the hospital. According to his , patient has been watching the game with a friend at home on the culture. All suddenly he made a noise, put his head back, started shaking. He was not responding to her questions. She got him on the floor and called 911. When EMS arrived, he was on the floor. He kept gazing to the right. He would alternate between being apneic and combative. In the emergency room, patient was evaluated by [place] neurology. CT scan was negative for any acute intracranial pathology. Seizure was suspected. Patient was transferred critical ill to surgical intensive care unit for further management. Past Medical/Surgical History Nephrolithiasis Coronary heart disease, status post [employer]HETICIAN [employer]UP [employer]IST Primary sclerosing cholangitis diagnosed 40 years ago Ileostomy formation 2 Status post knee joint replacement History of sepsis from ascending cholangitis. 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 Spends his time is hobby [place] helping his son in the [employer] business. Smoking Status: Never Smoker Marital Status: Housing Status: lives with family Allergies Coded Allergies: Codeine (Verified Adverse Reaction, Unknown, INTOLERANT ALL NARCOTICS EXC FENTANYL, 04/27/17) Eggs or Egg-derived Products (Verified Adverse Reaction, Unknown, rash with large quantities of egg, 04/27/17) NO ISSUE WITH PROPOFOL Flu Virus Vaccine (Verified Adverse Reaction, Unknown, pt had rash with lg quantities of egg, 04/27/17) Meperidine (Verified Adverse Reaction, Unknown, INTOLERANT ALL NARCOTICS EXC FENTANYL, 04/27/17) Morphine (Verified Adverse Reaction, Unknown, NAUSEA, VOMITING, FLUSHED, 04/27/17) NAUSEA,VOMITING,FLUSHED Home Medications Scheduled Alendronate Sodium (Fosamax), 70 MG PO WK Alfuzosin Hcl (Uroxatral), 10 MG PO HS Allopurinol (Zyloprim), 300 MG PO QAM Aspirin (Aspirin Chewable), 81 MG PO DAILY Calcium Carbonate-Vitamin D W/ (Caltrate 600 Plus), 1 TAB PO QAM Diclofenac (Voltaren), 75 MG PO QAM Ergocalciferol (Vitamin D2), 1.25 MG PO WK Finasteride (Proscar), 5 MG PO QPM Fish Oil ([place]-3), 1,200 MG PO QAM Folic Acid (Folvite), 1 MG PO QPM Magnesium Oxide (Mag-Ox), 400 MG PO QAM Methylcobalamin ([id number]), 1,000 MCG PO MONTHLY Metoprolol Tartrate (Lopressor) (Lopressor), 75 MG PO QAM Metoprolol Tartrate (Lopressor) (Lopressor), 100 MG PO HS Metronidazole (Flagyl), 500 MG PO daily at lunch Misoprostol (Cytotec), 200 MCG PO QAM [place]-3 Fatty Acids-Cholecalci (Dry Eye [place] Benefits/Vi), 4 CAP PO QAM Omeprazole (Prilosec), 20 MG PO QAM Rosuvastatin Calcium (Crestor), 20 MG PO HS Soft Lens Products (B & L Sensitive Eyes Plus), 1 DROP OP AMPM Ursodiol (Actigall), 300 MG PO AMPM Scheduled PRN Aspirin (Aspirin), 325 MG PO UD PRN for Migraine Ciprofloxacin (Ciprofloxacin HCl), 500 MG PO BID PRN for PSC Loratadine (Claritin), 10 MG PO QAM PRN for Seasonal Allergies Meclizine Hcl (Meclizine Hcl), 25 MG PO TID PRN for Dizziness or Vertigo Ondasetron Odt (Zofran Odt), 4 MG SL Q6H PRN for Nausea Current Inpatient Medications Current Inpatient Medications Medications (Trade) Dose Ordered Sig/Alberto Route Start Time Stop Time Status Last Admin Dose Admin Piperacillin Sod/ Tazobactam Sod 4.5 gm/Dextrose 120 ml @ 30 mls/hr Q8H IV 04/27/17 08:00 05/07/17 07:59 04/27/17 09:25 30 MLS/HR Ondansetron HCl (Zofran Inj) 4 mg Q6H PRN IV 04/27/17 02:00 05/27/17 01:59 Potassium Chloride/Sodium Chloride 1,000 ml @ 150 mls/hr Q6H40M IV 04/27/17 01:51 05/27/17 01:50 04/27/17 09:26 150 MLS/HR Enoxaparin Sodium (Lovenox Inj) 40 mg Q24H SQ 04/27/17 09:00 05/27/17 08:59 Future Hold Acetaminophen (Tylenol Tab) 650 mg Q4H PRN PO 04/27/17 02:00 05/27/17 01:59 Lorazepam (Ativan Inj) 0.5 mg Q4H PRN IV 04/27/17 02:00 05/27/17 01:59 Al Hydrox/Mg Hydrox/Simethicone (Maalox Max Susp) 15 ml Q4H PRN PO 04/27/17 02:00 05/27/17 01:59 Pantoprazole Sodium 40 mg/ Syringe 10 ml @ 5 mls/min DAILY IV 04/27/17 09:00 05/27/17 08:59 04/27/17 09:37 5 MLS/MIN Alfuzosin HCl (Uroxatral Tab) 10 mg HS PO 04/27/17 21:00 05/27/17 20:59 Allopurinol (Zyloprim Tab) 300 mg QAM PO 04/27/17 09:00 05/27/17 08:59 04/27/17 09:32 300 MG Aspirin (Aspirin Chew) 81 mg DAILY PO 04/27/17 09:00 05/27/17 08:59 04/27/17 09:32 81 MG Calcium/Vitamin D (Caltrate Plus Tab) 1 tab QAM PO 04/27/17 09:00 05/27/17 08:59 04/27/17 09:37 1 TAB Diclofenac Sodium (Voltaren Tab) 75 mg QAM PO 04/27/17 09:00 05/27/17 08:59 04/27/17 09:33 75 MG Finasteride (Proscar Tab) 5 mg QPM PO 04/27/17 21:00 05/27/17 20:59 Fish Oil ([place]-3 (Purified Fish Oil) Cap) 1 gm QAM PO 04/27/17 09:00 05/27/17 08:59 04/27/17 09:29 1 GM Folic Acid (Folvite Tab) 1 mg QPM PO 04/27/17 21:00 05/27/17 20:59 Loratadine (Claritin Tab) 10 mg QAM PRN PO 04/27/17 02:00 05/27/17 01:59 Magnesium Oxide (Mag-Ox Tab) 400 mg QAM PO 04/27/17 09:00 05/27/17 08:59 04/27/17 09:33 400 MG Meclizine HCl (Antivert Tab) 25 mg TID PRN PO 04/27/17 02:00 05/27/17 01:59 Metoprolol Tartrate (Lopressor Tab) 75 mg QAM PO 04/27/17 09:00 05/27/17 08:59 04/27/17 09:31 75 MG Metoprolol Tartrate (Lopressor Tab) 100 mg HS PO 04/27/17 21:00 05/27/17 20:59 Misoprostol (Cytotec Tab) 200 mcg QAM PO 04/27/17 09:00 05/27/17 08:59 04/27/17 09:30 200 MCG Ondansetron HCl (Zofran Odt) 4 mg Q6H PRN SL 04/27/17 02:00 05/27/17 01:59 Rosuvastatin Calcium (Crestor Tab) 20 mg HS PO 04/27/17 21:00 05/27/17 20:59 Ursodiol (Actigall Cap) 300 mg BID PO 04/27/17 09:00 05/27/17 08:59 04/27/17 09:29 300 MG Levofloxacin 750 mg/Prmx 150 ml @ 100 mls/hr Q24H IV 04/28/17 02:00 05/06/17 03:29 Vancomycin HCl (Consult) 1 ea UD PRN N/A 04/27/17 03:30 05/27/17 03:29 Piperacillin Sod/ Tazobactam Sod (Consult) 1 ea UD PRN N/A 04/27/17 03:30 05/27/17 03:29 Oxycodone HCl (Roxicodone Immediate Rel Tab) 5 mg Q6H PRN PO 04/27/17 09:30 05/11/17 09:29 Vancomycin HCl 1250 mg/Sodium Chloride 275 ml @ 125 mls/hr Q16H IV 04/27/17 18:00 05/07/17 17:59 Review of Systems Constitutional: + fever, + weakness, + fatigue, + problem reported (metallic taste in the mouth.) Abdomen: + nausea Physical Exam Date Time Temp Pulse Resp B/P (MAP) Pulse Ox O2 Delivery O2 Flow Rate FiO2 04/27/17 06:31 73 16 117/57 (77) 97 04/27/17 06:16 71 16 117/60 (79) 99 04/27/17 06:01 72 15 107/52 (70) 97 Oxymask 4.0 04/27/17 05:46 75 19 105/74 (84) 99 04/27/17 05:31 74 19 100/56 (71) 96 04/27/17 05:16 77 16 117/68 (84) 91 04/27/17 05:01 78 17 118/65 (82) 90 04/27/17 04:46 80 16 110/78 (89) 95 Oxymask 4.0 04/27/17 04:07 85 18 109/67 (81) 90 Nasal Cannula 4.0 Oxymask 04/27/17 03:46 79 10 104/50 (68) 97 Nasal Cannula 4.0 Oxymask 04/27/17 03:30 87 19 106/58 (74) 95 Nasal Cannula 4.0 Oxymask 04/27/17 03:00 36.5 96 26 98/52 96 Nasal Cannula 4.0 04/27/17 02:06 106 20 100/56 93 Nasal Cannula 4.0 04/27/17 01:32 94 Nasal Cannula 4.0 04/27/17 01:29 99 18 130/68 94 Nasal Cannula 4.0 04/27/17 01:04 102 20 149/78 94 Nasal Cannula 4.0 04/27/17 00:53 103 20 144/71 97 Non-Rebreather 15.0 04/27/17 00:18 101 20 141/75 97 Non-Rebreather 15.0 04/26/17 23:57 104 04/26/17 23:52 36.6 106 22 85 Room Air Physical examination revealed elderly well-nourished gentleman who appears to be comfortable laying in his bed. Head was atraumatic, normocephalic. Mouth mucosa was moist, no rash. Neck was supple, there was no JVD no carotid bruit. Pupils were equal, round, reactive, extra ocular movements were intact. Lungs were clear to auscultation. Abdomen was soft and nontender. There was ileostomy present in the left lower quadrant. There was a reducible large around 15 cm ventral hernia present in the left lower quadrant. There were well-healed scar present. Lower extremity is warm, well-perfused. Status post bilateral knee replacement. No calf tenderness, no edema, good capillary refill. Neurologically, patient was alert and oriented 3. Speech was clear. No obvious neuro deficits. Psychiatric: Appropriate affect. Laboratory Results Last 24 Hours Test 04/26/17 23:51 04/27/17 00:25 04/27/17 00:28 04/27/17 00:45 White Blood Count 8.89 K/uL Red Blood Count 4.68 M/uL Hemoglobin 13.8 g/dL Hematocrit 42.1 % Mean Corpuscular Volume 90.0 fL Mean Corpuscular Hemoglobin 29.5 pg Mean Corpuscular Hemoglobin Concent 32.8 g/dl Platelet Count 126 K/uL Mean Platelet Volume 13.2 fL Neutrophils (%) (Auto) 61.8 % Lymphocytes (%) (Auto) 28.2 % Monocytes (%) (Auto) 8.0 % Eosinophils (%) (Auto) 0.8 % Basophils (%) (Auto) 0.2 % Neutrophils # (Auto) 5.49 K/uL Lymphocytes # (Auto) 2.51 K/uL Monocytes # (Auto) 0.71 K/uL Eosinophils # (Auto) 0.07 K/uL Basophils # (Auto) 0.02 K/uL RDW Standard Deviation 65.7 fL RDW Coefficient of Variation 19.9 % Immature Granulocyte % (Auto) 1.0 % Immature Granulocyte # (Auto) 0.09 K/uL Platelet Estimate DECREASED Prothrombin Time 10.9 SECONDS Prothromb Time International Ratio 1.0 Sodium Level 139 mmol/L Potassium Level 2.9 mmol/L Chloride Level 105 mmol/L Carbon Dioxide Level 15 mmol/L Anion Gap 19.0 mmol/L 22.0 mmol/L Blood Urea Nitrogen 14 mg/dl Creatinine 1.40 mg/dl Est Creatinine Clear Calc Drug Dose 47.0 ml/min Estimated GFR () 55.0 Estimated GFR (Non- 47.5 BUN/Creatinine Ratio 9.8 Random Glucose 204 mg/dl Calcium Level 8.9 mg/dl Magnesium Level 2.1 mg/dl Total Bilirubin 2.4 mg/dl Aspartate Amino Transf (AST/SGOT) 120 U/L Alanine Aminotransferase (ALT/SGPT) 122 U/L Alkaline Phosphatase 206 U/L Troponin I < 0.015 ng/ml Total Protein 7.4 gm/dl Albumin 3.5 gm/dl Globulin 3.9 gm/dl Albumin/Globulin Ratio 0.9 Chemistry Specimen Hemolysis Ethyl Alcohol mg/dL < 3.0 mg/dl Bedside Glucose 213 mg/dl Bedside Hemoglobin 14.6 g/dl Bedside Hematocrit 43 % Bedside Sodium 140 mEq/L Bedside Potassium 2.6 mEq/L Bedside Chloride 106 mEq/L Bedside Total CO2 16 mEq/l Bedside Blood Urea Nitrogen 13 mg/dl Bedside Creatinine 1.0 mg/dl Bedside Glucose (other) 237 mg/dl Lactic Acid Level 8.0 mmol/L Bedside Ionized Calcium ([place]) 1.08 mmol/l Urine Color DK YELLOW Urine Appearance CLEAR Urine pH 5.0 Urine Specific [place] 1.012 Urine Protein NEG Urine Glucose (UA) NEG Urine Ketones TRACE Urine Occult Blood 1+ Urine Nitrite NEG Urine Bilirubin NEG Urine Urobilinogen NEG Urine Leukocyte Esterase TRACE Urine WBC (Auto) 1-5 /hpf Urine RBC (Auto) 5-10 /hpf Urine Hyaline Casts (Auto) 1-5 /lpf Urine Epithelial Cells (Auto) 5-10 /lpf Urine Bacteria (Auto) NEG Test 04/27/17 02:25 04/27/17 05:30 04/27/17 08:23 Venous Blood pH 7.33 Venous Blood Partial Pressure CO2 33 mmHg Venous Blood Partial Pressure O2 50 mmHg Venous Blood HCO3 17 mmol/L Venous Blood Oxygen Saturation 80.1 % Venous Blood Base Excess -7.9 mEq/L Sodium Level 139 mmol/L Potassium Level 3.7 mmol/L Chloride Level 110 mmol/L Carbon Dioxide Level 20 mmol/L Anion Gap 9.0 mmol/L Blood Urea Nitrogen 15 mg/dl Creatinine 1.06 mg/dl Est Creatinine Clear Calc Drug Dose 56.5 ml/min Estimated GFR () 77.0 Estimated GFR (Non- 66.4 BUN/Creatinine Ratio 14.0 Random Glucose 231 mg/dl Lactic Acid Level 1.6 mmol/L Calcium Level 7.8 mg/dl Total Bilirubin 2.1 mg/dl 2.0 mg/dl Aspartate Amino Transf (AST/SGOT) 82 U/L Alanine Aminotransferase (ALT/SGPT) 97 U/L Alkaline Phosphatase 162 U/L Total Protein 5.9 gm/dl Albumin 2.6 gm/dl Globulin 3.3 gm/dl Albumin/Globulin Ratio 0.8 Direct Bilirubin 1.7 mg/dl C-Reactive Protein 0.95 mg/dl Procalcitonin 2.62 ng/ml Assessment & Plan 1. Acute change in mentation is likely seizure related with post ictal state with complete resolution. CT scan of head was negative for any acute intracranial pathology. We will obtain EEG and MRI of the brain, consult neurology. We will watch patient in telemetry setting for any other episodes of seizure. 2. Primary sclerosing cholangitis. Patient requires ERCP every 3 months at [facility] (the last ERCP in February 2017). Worsening fatigue, low- grade fevers over last couple of weeks. Even though there is no leukocytosis, biochemical markers such as per calcitonin indicate bacterial infection. Suspected low grade sepsis. It would be reasonable to treat patient with short course of antibiotics including vancomycin and Zosyn while awaiting for cultures. We will contact patient discussed enterology is at [facility] to see if more urgent ERCP should be scheduled. Meanwhile, we'll continue with Actigal. 3. Coronary artery disease. We'll continue with metoprolol and aspirin. Otherwise, hemodynamics are acceptable, no signs of cardiac ischemia. Monitor did not reveal any arrhythmias. 4. Pulmonary: Gas exchange is adequate on room air. 5. Renal function is adequate. 6. Heparin for DVT prophylaxis. I discussed patient's clinical condition and management plan with patient's and dust enterology colleagues. I spent a total of 32 minutes of critical care time valve and managing this patient.
[2017-04-27] MEDS ORDERED: LACTATED RINGER'S 1000ML 1,000 ML IV SCH (13:15)
--- NOTE | 2017-04-27 13:28 | Family Medicine Progress Note ---
Progress Note Date of Service Apr 27, 2017. Subjective Pt evaluation today including: conversation w/ patient, physical exam, chart review, lab review The patient was seen and examined at bedside. Pt states that the last thing he remembers is seeing the clock on the [employer] game at 42seconds and then being in the ER. He doesn't remember traveling to the ER. Patient is resting comfortably in bed. Not in any distress. Feels a little sick. He has been taking Cipro 500mg BID for hte past week - he takes prophylactic Abx every time he feels that he is getting a flare of sclerosing cholangitis. I spoke with the in the AM before rounds and she emphasized that she would like the pt's ERCP done at [facility] because they have been taking care of him for 40 years. Plan of care was described to the patient and all questions were answered. ROS: No chest pain, no SOB, no dyspnea on exertion, no palpitations, no fevers, no chills, no nausea, no vomiting, no diarrhea, no dysuria, no rash. Good ostomy output. Objective Physical Exam General Appearance: WD/WN, no apparent distress Eyes: normal inspection, PERRL, EOMI ENT: normal ENT inspection, hearing grossly normal, TMs normal, pharynx normal Neck: supple Respiratory/Chest: chest non-tender, lungs clear, normal breath sounds, no respiratory distress, no accessory muscle use Cardiovascular: regular rate, rhythm, no edema, no gallop, no JVD, no murmur Abdomen: normal bowel sounds, non tender, soft, + pertinent finding (Ostomy in place and draining normal output. No rebound. ) Extremities: normal range of motion, non-tender, normal inspection, no pedal edema, no calf tenderness Neurologic/Psychiatric: psychological anthropologist II-XII nml as tested, no motor/sensory deficits, alert, normal mood/affect, oriented x 3 Skin: no rash Assessment and Plan 77M with a PMHx of sclerosing cholangitis who gets regular ERCPs every 3 months at [facility] presents w syncopial episode. Differentials include cardiac, neurology and infection etiologies. Neuro: * AAOx3 * Head CT was normal. * Per Dr. Arrieta's note, we will investigate seizure activity with an EEG and Brain MRI. * Appreciate Neurology recommendations. * Pain control with Tylenol 650mg PO Q6H PRN + Oxicodone PO 5mg Q6H PRN for pain. + Dilaudid IV 0.5mg Q4H PRN for pain. CV - * No recent echo in chart, follows with Dr. Berumen in [place], per history had a stent placed in [place] for an [place]. * EKG - awaiting official read, I did not appreciate criteria for acute infarct. * Trop neg x 1. * No events on tele. * Lactic acid was 8-->1.0, suggesting that some type of acute event with ischemia occurred. * CAD: * ASA 81mg daily * Metoprolol 75mg, 100mg twice daily. * Crestor 20mg daily. Resp - * Pt is on 4L oxymask, this is a new oxygen requirement. * Pt was seen in the ER in March for Cholangitis where he also had Hypoxia. CTA was negative for PE> * X-ray results showed no acute process, only cardiomegaly. * PT cannot be completely ruled out, consider CT for PE. Renal/ - * Creatinine is 1.1, per chart review this is the patient's baseline. * Urine output is good. * IVF LR @150mls/hr. GI/Diet - * LFTs are elevated, above the pt's baseline (per chart review), AST 82, ALT 97 and ALP is 162. * No hepatitis serology in chart. * GI Proph: PPI 40mg daily * This may be related to Sclerosing Cholangitis, the bilirubin level was 2.1 with the majority being conjugated bilirubin. This is odd considering there is no bilirubin detected in the urine. * Per GIs recommendation, pt has been on Diclofenac and ASA daily, if we do an ERCP here he recommends looking at the Gastric mucosa on the way to the ERCP. * Pt gets ERCPs at [facility], by Dr. Mcclellan. * Per Dr. Arrieta, Will restart regular diet. Endo - * Blood Sugars >200 * HBA1C was 7.1 in February. * Electrolytes: Na+ 139 K+ 3.7 * Gout: c/w Allopurinol daily. Heme - * Hgb 13.8, Platelets 126 WNL. * DVT Proph: Lovenox 40mg SQ daily ID - * Afebrile, WBC count normal. * Lactic Acid elevated and Procalcitonin was positive. * Per patient he can feel when his sclerosing chlangitis has been acting up. He has been taking 500mg BID of Cipro PO at home that was given to his as sclerosing cholangitis prophylaxis. * Pt is put on Zosyn and Vanc. This is Day #1. Social - Lives w , she is active in his care. Dispo - ICU, requires telemetry. Defer to Dr. Arrieta' regarding downgrading. Full Code Resident Involvement: Resident Care Provided Care Provided: Adult Hospital Medicine
[2017-04-27] MEDS: VANCOMYCIN INJ 1,250 MG in SODIUM CHLORIDE 0.9% 250ML 250 ML IV SCH (17:45)
[2017-04-27] MEDS: FINASTERIDE 5 MG TAB PO SCH (21:12)
[2017-04-27] MEDS: ALFUZosin TAB 10 MG TAB PO SCH (21:12)
[2017-04-27] MEDS: ROSUVASTATIN CALCIUM 20 MG TAB PO SCH (21:13)
--- NOTE | 2017-04-27 21:15 | DIAGNOSTIC IMAGING REPORT ---
MRI OF THE BRAIN WITHOUT AND WITH IV CONTRAST CLINICAL HISTORY: Acute change in mental status. Suspected seizure. COMPARISON STUDY: Head CT dated 06/27/2017 TECHNIQUE: MRI of the brain was performed from the vertex to the skull base utilizing various T1 and T2 weighted sequences. Following the IV administration of 8 mL of Gadavist contrast, additional enhanced images were obtained. FINDINGS: Sagittal T1, axial diffusion, proton density and T2 weighted axial, coronal FLAIR, and pre and post axial T1-weighted images were acquired. These were supplemented with post gadolinium coronal T1 weighted images. No intra or extra-axial mass lesions are visualized. Axial diffusion-weighted images reveal no evidence of acute or subacute infarction. There is a cavum septa pellucida and cavum vergae. There is no hydrocephalus. Proton density T2-weighted and FLAIR images reveal scattered foci of increased T2 signal within the white matter, likely on a small vessel basis. There there are scattered lacunar infarcts most pronounced within the cerebellar hemispheres.. There are no abnormal flow voids. There is no evidence of pathologic enhancement. Coronal T2-weighted images through the temporal lobes reveal symmetric hippocampal formations. IMPRESSION: 1. No acute intracranial findings 2. No evidence of acute or subacute infarction 3. No evidence of intracranial mass 4. Foci of increased T2 signal within the white matter and scattered lacunar infarcts likely small vessel basis Electronically signed by: Anderson Dietrich M.D. 04/27/2017 9:14 PM Dictated Date/Time: 04/27/2017 9:10 PM
[2017-04-28 00:31] VITALS: BP 127/60; PULSE 64; TEMP 36.5; O2SAT 94
[2017-04-28] MEDS: PIPERACILL/TAZOBAC IV 4.5 GM in DEXTROSE 5% 100ML 100 ML IV SCH ×3 (01:12→15:40)
[2017-04-28] MEDS: NSS + 20MEQ KCL 1000ML 1,000 ML IV SCH ×6 (01:12→17:56)
[2017-04-28] MEDS ORDERED: LEVOFLOXACIN / D5W 750 MG in PREMIXED IN D5W 150 ML IV SCH (02:00)
[2017-04-28 02:59] VITALS: BP 128/67; PULSE 59; TEMP 36.7; O2SAT 92
[2017-04-28 06:49] LABS: INR 1.1 (0.9-1.1); PARTIAL THROMBOPLASTIN RATIO 0.9; PROTHROMBIN TIME (PATIENT) 11.4 SECONDS (9.0-12.0)
[2017-04-28 07:05] LABS: BUN/CREATININE RATIO 8.4 (10-20); CALCIUM 8.2 mg/dl (8.5-10.1); CREATININE 1.02 mg/dl (0.60-1.40); MAGNESIUM 2.1 mg/dl (1.8-2.4); POTASSIUM 4.2 mmol/L (3.5-5.1)
[2017-04-28 07:08] LABS: HEMATOCRIT 34.1 % (42-52); MEAN CELL VOLUME 91.4 fL (80-100); MEAN CORPUSCULAR HEMOGLOBIN 29.8 pg (25-34); MEAN CORPUSCULAR HGB CONC 32.6 g/dl (32-36); MEAN PLATELET VOLUME 12.3 fL (7.4-10.4); PLATELET COUNT 84 K/uL (130-400); RED BLOOD COUNT 3.73 M/uL (4.7-6.1); WHITE BLOOD COUNT 3.68 K/uL (4.8-10.8)
[2017-04-28 07:12] LABS: ANISOCYTOSIS PRESENT; COMPLETE YES; EOS % 1.1 %; IG% 0.3 %; LYMPH % 14.9 %; LYMPH ABS # 0.55 K/uL (1.2-3.4); MONO % 8.2 %; NEUT % 75.5 %; PLT ESTIMATE DECREASED; TEAR DROP CELLS 1+
[2017-04-28 07:37] VITALS: BP 156/83; PULSE 61; TEMP 37.1; O2SAT 91
[2017-04-28] MEDS: PANTOprazole INJ 40 MG in SYRINGE 0 ML IV SCH (08:09)
[2017-04-28] MEDS: MAGNESIUM OXIDE 400 MG TAB PO SCH (08:09)
[2017-04-28] MEDS: MISOPROSTOL 200 MCG TAB PO SCH (08:10)
[2017-04-28] MEDS: OMEGA-3 (PURIFIED FISH OIL) 1 GM CAP PO SCH (08:10)
[2017-04-28] MEDS: METOPROLOL TARTRATE 50 MG TAB PO SCH ×2 (08:12→21:06)
[2017-04-28] MEDS: CALCIUM 600MG + VIT D 400 IU TAB PO SCH (08:13)
[2017-04-28] MEDS: URSODIOL 300 MG CAP PO SCH ×2 (08:14→21:35)
[2017-04-28] MEDS: DICLOFENAC SOD EC 75 MG TABCR PO SCH (08:15)
[2017-04-28] MEDS: ALLOPURINOL 300 MG TAB PO SCH (08:15)
--- NOTE | 2017-04-28 08:24 | EEG Procedure Note ---
EEG Procedure Note Date of Service Apr 27, 2017. Start / End Times Start Time: 5:20pm End Time: 5:40pm Referring Physician Mockus History This 77-year-old male with acute change in mental status. EEG for further evaluation of possible seizure etiology. Home Medication List Scheduled Alendronate Sodium (Fosamax), 70 MG PO WK Alfuzosin Hcl (Uroxatral), 10 MG PO HS Allopurinol (Zyloprim), 300 MG PO QAM Aspirin (Aspirin Chewable), 81 MG PO DAILY Calcium Carbonate-Vitamin D W/ (Caltrate 600 Plus), 1 TAB PO QAM Diclofenac (Voltaren), 75 MG PO QAM Ergocalciferol (Vitamin D2), 1.25 MG PO WK Finasteride (Proscar), 5 MG PO QPM Fish Oil ([place]-3), 1,200 MG PO QAM Folic Acid (Folvite), 1 MG PO QPM Magnesium Oxide (Mag-Ox), 400 MG PO QAM Methylcobalamin (A41-Qswchj), 1,000 MCG PO MONTHLY Metoprolol Tartrate (Lopressor) (Lopressor), 75 MG PO QAM Metoprolol Tartrate (Lopressor) (Lopressor), 100 MG PO HS Metronidazole (Flagyl), 500 MG PO daily at lunch Misoprostol (Cytotec), 200 MCG PO QAM [place]-3 Fatty Acids-Cholecalci (Dry Eye [place] Benefits/Vi), 4 CAP PO QAM Omeprazole (Prilosec), 20 MG PO QAM Rosuvastatin Calcium (Crestor), 20 MG PO HS Soft Lens Products (B & L Sensitive Eyes Plus), 1 DROP OP AMPM Ursodiol (Actigall), 300 MG PO AMPM Scheduled PRN Aspirin (Aspirin), 325 MG PO UD PRN for Migraine Ciprofloxacin (Ciprofloxacin HCl), 500 MG PO BID PRN for PSC Loratadine (Claritin), 10 MG PO QAM PRN for Seasonal Allergies Meclizine Hcl (Meclizine Hcl), 25 MG PO TID PRN for Dizziness or Vertigo Ondasetron Odt (Zofran Odt), 4 MG SL Q6H PRN for Nausea Inpatient Medication List Current Inpatient Medications Medications (Trade) Dose Ordered Sig/Alberto Route Start Time Stop Time Status Last Admin Dose Admin Piperacillin Sod/ Tazobactam Sod 4.5 gm/Dextrose 120 ml @ 30 mls/hr Q8H IV 04/27/17 08:00 05/07/17 07:59 04/28/17 01:12 30 MLS/HR Ondansetron HCl (Zofran Inj) 4 mg Q6H PRN IV 04/27/17 02:00 05/27/17 01:59 Potassium Chloride/Sodium Chloride 1,000 ml @ 150 mls/hr Q6H40M IV 04/27/17 01:51 05/27/17 01:50 04/28/17 01:12 150 MLS/HR Enoxaparin Sodium (Lovenox Inj) 40 mg Q24H SQ 04/27/17 09:00 05/27/17 08:59 Future Hold Acetaminophen (Tylenol Tab) 650 mg Q4H PRN PO 04/27/17 02:00 05/27/17 01:59 Lorazepam (Ativan Inj) 0.5 mg Q4H PRN IV 04/27/17 02:00 05/27/17 01:59 Al Hydrox/Mg Hydrox/Simethicone (Maalox Max Susp) 15 ml Q4H PRN PO 04/27/17 02:00 05/27/17 01:59 Pantoprazole Sodium 40 mg/ Syringe 10 ml @ 5 mls/min DAILY IV 04/27/17 09:00 05/27/17 08:59 04/27/17 09:37 5 MLS/MIN Alfuzosin HCl (Uroxatral Tab) 10 mg HS PO 04/27/17 21:00 05/27/17 20:59 04/27/17 21:12 10 MG Allopurinol (Zyloprim Tab) 300 mg QAM PO 04/27/17 09:00 05/27/17 08:59 04/27/17 09:32 300 MG Aspirin (Aspirin Chew) 81 mg DAILY PO 04/27/17 09:00 05/27/17 08:59 04/27/17 09:32 81 MG Calcium/Vitamin D (Caltrate Plus Tab) 1 tab QAM PO 04/27/17 09:00 05/27/17 08:59 04/27/17 09:37 1 TAB Diclofenac Sodium (Voltaren Tab) 75 mg QAM PO 04/27/17 09:00 05/27/17 08:59 10/22/17 09:33 75 MG Finasteride (Proscar Tab) 5 mg QPM PO 04/27/17 21:00 05/27/17 20:59 04/27/17 21:12 5 MG Fish Oil ([place]-3 (Purified Fish Oil) Cap) 1 gm QAM PO 04/27/17 09:00 05/27/17 08:59 04/27/17 09:29 1 GM Folic Acid (Folvite Tab) 1 mg QPM PO 04/27/17 21:00 05/27/17 20:59 04/27/17 21:13 1 MG Loratadine (Claritin Tab) 10 mg QAM PRN PO 04/27/17 02:00 05/27/17 01:59 Magnesium Oxide (Mag-Ox Tab) 400 mg QAM PO 04/27/17 09:00 05/27/17 08:59 04/27/17 09:33 400 MG Meclizine HCl (Antivert Tab) 25 mg TID PRN PO 04/27/17 02:00 05/27/17 01:59 Metoprolol Tartrate (Lopressor Tab) 75 mg QAM PO 04/27/17 09:00 05/27/17 08:59 04/27/17 09:31 75 MG Metoprolol Tartrate (Lopressor Tab) 100 mg HS PO 04/27/17 21:00 05/27/17 20:59 04/27/17 21:13 100 MG Misoprostol (Cytotec Tab) 200 mcg QAM PO 04/27/17 09:00 05/27/17 08:59 04/27/17 09:30 200 MCG Ondansetron HCl (Zofran Odt) 4 mg Q6H PRN SL 04/27/17 02:00 05/27/17 01:59 Rosuvastatin Calcium (Crestor Tab) 20 mg HS PO 04/27/17 21:00 05/27/17 20:59 04/27/17 21:13 20 MG Ursodiol (Actigall Cap) 300 mg BID PO 04/27/17 09:00 05/27/17 08:59 04/27/17 21:12 300 MG Vancomycin HCl (Consult) 1 ea UD PRN N/A 04/27/17 03:30 05/27/17 03:29 Piperacillin Sod/ Tazobactam Sod (Consult) 1 ea UD PRN N/A 04/27/17 03:30 05/27/17 03:29 Oxycodone HCl (Roxicodone Immediate Rel Tab) 5 mg Q6H PRN PO 04/27/17 09:30 05/11/17 09:29 Vancomycin HCl 1250 mg/Sodium Chloride 275 ml @ 125 mls/hr Q16H IV 04/27/17 18:00 05/07/17 17:59 04/27/17 17:45 125 MLS/HR Description This is a 21 electrode video EEG with a single channel dedicated to limited EKG. The electrodes were placed in accordance with the International 10-20 system. At the start of the recording the patient was in an awake state. Background was well organized and composed of symmetric mixed alpha and beta frequencies. There was a symmetric well-formed moderate amplitude 9-10 Hz posterior dominant rhythm that was reactive to eye opening and closure. Hyperventilation was not done. Intermittent photic stimulation at various frequencies produced no abnormalities. Drowsiness was indicated by loss of muscle artifact, slowing of the background rhythm, and vertex waves. There was no stage II sleep transients. Interpretation This is a normal awake and drowsy routine EEG. There was no electrographic seizures or epileptiform discharges. Clinical Correlation A normal EEG does not rule out epilepsy if there is a strong clinical suspicion.
--- NOTE | 2017-04-28 08:48 | Medical Student: [facility] ---
Consultation Date of Consultation: Apr 28, 2017. Requesting Physician: Dr. Ingram Attending Physician: Dr. Martinez Reason for Consultation: Altered mental status - unresponsive episode History of Present Illness Patient is a 77yo, right-handed male with PMH significant for [place] with cath and stent in 2001, HLD, migraines, PSC, UC s/p colectomy, DVT, HTN, DM II presenting with an episode of altered mental status and unresponsive period. Patient states he was watching a football game Friday night 04/26 with a neighbor and the next thing he remembers is being in an inpatient bed. He reports that he has no recollection of the ambulance ride to the hospital nor of the emergency department. Patient states that nothing like this has ever happened before. Per witness patient became altered, fell to the ground, began foaming at the mouth with rightward gaze - no jerking episodes noted. Per EMS patient became apneic and somewhat combative with hypersalivation but no incontinence or tongue biting. In the emergency department, patient was communicating with staff and they reported some speech slurring and potentially RT arm weakness. Patient has chronic GI issues requiring ERCP every three months for PSC. He states that is approaching time for his next procedure as he has developed a metallic taste in his mouth which occurs each time. He denies recent ELIZABETH, chest pain, palpitations, SOB, NV, dizziness, diarrhea, constipation, numbness/ tingling or weakness. He does say he has felt "off" the last few weeks reporting low grade fever and fatigue. Patient has no complaints at this time except for pain in LT flank which he believes was the result of a fall during his AMS episode. Past Medical/Surgical History Medical History: HX multiple concussions in high school with football Primary sclerosing cholangitis - followed by [place] with ERCP every 3 months Kidney/ureter stones CAD with [place], cath, and stent in 2001 DVT GERD BPH osteoarthritis Migraines with aura since elementary school Vertigo HTN DM II HLD Ulcerative colitis s/p colectomy Surgical History: Bilateral knee arthroplasty Ileostomy x2 Colectomy Carpel tunnel release RT shoulder arthroplasty Appendectomy Cholecystectomy Common duct reconstruction Bilateral cataracts Family History Mother: Father: passed at 65yo COPD (smoker + re examiner), heart disease Social History Smoking Status: Never Smoker History of Alcohol Use: Yes (Wine 1 daily) Drug Use: none Marital Status: Housing Status: lives with significant other 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 Status: 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 ([employer]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, 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, 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) Review of Systems Constitutional: + fever (low grade past few weeks), + fatigue (past few weeks) , No weakness Eyes: No worsening of vision, No diplopia ENT: No hearing loss, No tinnitus, No trouble swallowing Respiratory: No shortness of breath Cardiac: No chest pain, No palpitations Abdomen: No pain, No nausea, No vomiting, No diarrhea, No constipation Male : No incontinence Neurologic: + memory loss (friday evening to placement in hospital bed - mayen not recall ambulance or ER), No paralysis, No weakness, No numbness/tingling, No balance problems Endo: + fatigue Metallic taste in mouth which patient states occurs every time ERCP is due to occur Allergies Coded Allergies: Codeine (Verified Adverse Reaction, Unknown, INTOLERANT ALL NARCOTICS EXC FENTANYL, 04/27/17) Eggs or Egg-derived Products (Verified Adverse Reaction, Unknown, rash with large quantities of egg, 04/27/17) NO ISSUE WITH PROPOFOL Flu Virus Vaccine (Verified Adverse Reaction, Unknown, pt had rash with lg quantities of egg, 04/27/17) Meperidine (Verified Adverse Reaction, Unknown, INTOLERANT ALL NARCOTICS EXC FENTANYL, 04/27/17) Morphine (Verified Adverse Reaction, Unknown, NAUSEA, VOMITING, FLUSHED, 04/27/17) NAUSEA,VOMITING,FLUSHED Medications Current Inpatient Medications Medications (Trade) Dose Ordered Sig/Alberto Route Start Time Stop Time Status Last Admin Dose Admin Piperacillin Sod/ Tazobactam Sod 4.5 gm/Dextrose 120 ml @ 30 mls/hr Q8H IV 04/27/17 08:00 05/07/17 07:59 04/28/17 08:05 30 MLS/HR Ondansetron HCl (Zofran Inj) 4 mg Q6H PRN IV 04/27/17 02:00 05/27/17 01:59 Potassium Chloride/Sodium Chloride 1,000 ml @ 150 mls/hr Q6H40M IV 04/27/17 01:51 05/27/17 01:50 04/28/17 01:12 150 MLS/HR Enoxaparin Sodium (Lovenox Inj) 40 mg Q24H SQ 04/27/17 09:00 05/27/17 08:59 Future Hold Acetaminophen (Tylenol Tab) 650 mg Q4H PRN PO 04/27/17 02:00 05/27/17 01:59 Lorazepam (Ativan Inj) 0.5 mg Q4H PRN IV 04/27/17 02:00 05/27/17 01:59 Al Hydrox/Mg Hydrox/Simethicone (Maalox Max Susp) 15 ml Q4H PRN PO 04/27/17 02:00 05/27/17 01:59 Pantoprazole Sodium 40 mg/ Syringe 10 ml @ 5 mls/min DAILY IV 04/27/17 09:00 05/27/17 08:59 04/28/17 08:09 5 MLS/MIN Alfuzosin HCl (Uroxatral Tab) 10 mg HS PO 04/27/17 21:00 05/27/17 20:59 04/27/17 21:12 10 MG Allopurinol (Zyloprim Tab) 300 mg QAM PO 04/27/17 09:00 05/27/17 08:59 04/28/17 08:15 300 MG Aspirin (Aspirin Chew) 81 mg DAILY PO 04/27/17 09:00 05/27/17 08:59 04/27/17 09:32 81 MG Calcium/Vitamin D (Caltrate Plus Tab) 1 tab QAM PO 04/27/17 09:00 05/27/17 08:59 04/28/17 08:13 1 TAB Diclofenac Sodium (Voltaren Tab) 75 mg QAM PO 04/27/17 09:00 05/27/17 08:59 04/28/17 08:15 75 MG Finasteride (Proscar Tab) 5 mg QPM PO 04/27/17 21:00 05/27/17 20:59 04/27/17 21:12 5 MG Fish Oil ([place]-3 (Purified Fish Oil) Cap) 1 gm QAM PO 04/27/17 09:00 05/27/17 08:59 04/28/17 08:10 1 GM Folic Acid (Folvite Tab) 1 mg QPM PO 04/27/17 21:00 05/27/17 20:59 04/27/17 21:13 1 MG Loratadine (Claritin Tab) 10 mg QAM PRN PO 04/27/17 02:00 05/27/17 01:59 Magnesium Oxide (Mag-Ox Tab) 400 mg QAM PO 04/27/17 09:00 05/27/17 08:59 04/28/17 08:09 400 MG Meclizine HCl (Antivert Tab) 25 mg TID PRN PO 04/27/17 02:00 05/27/17 01:59 Metoprolol Tartrate (Lopressor Tab) 75 mg QAM PO 04/27/17 09:00 05/27/17 08:59 04/28/17 08:12 75 MG Metoprolol Tartrate (Lopressor Tab) 100 mg HS PO 04/27/17 21:00 05/27/17 20:59 04/27/17 21:13 100 MG Misoprostol (Cytotec Tab) 200 mcg QAM PO 04/27/17 09:00 05/27/17 08:59 04/28/17 08:10 200 MCG Ondansetron HCl (Zofran Odt) 4 mg Q6H PRN SL 04/27/17 02:00 05/27/17 01:59 Rosuvastatin Calcium (Crestor Tab) 20 mg HS PO 04/27/17 21:00 05/27/17 20:59 04/27/17 21:13 20 MG Ursodiol (Actigall Cap) 300 mg BID PO 04/27/17 09:00 05/27/17 08:59 04/28/17 08:14 300 MG Vancomycin HCl (Consult) 1 ea UD PRN N/A 04/27/17 03:30 05/27/17 03:29 Piperacillin Sod/ Tazobactam Sod (Consult) 1 ea UD PRN N/A 04/27/17 03:30 05/27/17 03:29 Oxycodone HCl (Roxicodone Immediate Rel Tab) 5 mg Q6H PRN PO 04/27/17 09:30 05/11/17 09:29 Vancomycin HCl 1250 mg/Sodium Chloride 275 ml @ 125 mls/hr Q16H IV 04/27/17 18:00 05/07/17 17:59 04/27/17 17:45 125 MLS/HR Physical Exam Date Time Temp Pulse Resp B/P (MAP) Pulse Ox O2 Delivery O2 Flow Rate FiO2 04/28/17 07:37 37.1 61 16 156/83 (107) 91 04/28/17 04:00 Room Air 04/28/17 02:59 36.7 59 18 128/67 (87) 92 Room Air 04/28/17 00:31 36.5 64 18 127/60 (82) 94 Room Air 04/28/17 00:00 Room Air 04/27/17 20:00 Room Air 04/27/17 16:00 Room Air 04/27/17 16:00 36.7 64 19 142/77 (98) 92 Room Air 04/27/17 14:00 65 14 130/72 (91) 94 04/27/17 12:00 Room Air 04/27/17 12:00 36.7 66 16 125/68 (87) 91 04/27/17 10:00 15 149/84 (105) 93 General Appearance: WD/WN, no apparent distress Eyes: bilateral eyes normal inspection, bilateral eyes PERRL, bilateral eyes EOMI ENT: hearing grossly normal, pharynx normal Neck: supple, no JVD, no carotid bruits, trachea midline Respiratory: lungs clear, normal breath sounds, no respiratory distress, no accessory muscle use Cardiovascular: regular rate, rhythm, no edema, no gallop, no JVD, no murmur Musculoskeletal: normal, normal strength (5/5 throughout), normal tone, pertinent finding (tenderness to palpation on LT flank attributed to fall - no pain with inspiration) 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, no motor/sensory deficits, alert, normal mood/affect, oriented x 3 Skin: normal color, warm/dry, no rash Mental Status: Patient alert and orientated to person, place, time, and situation Motor/tone * 5/5 strength bilateral in all four limbs - no weakness detected * No slurring of speech * Appropriate tone in all joints - no rigidity apparent Sensation * No reported numbness/tingling * Equal sensation bilaterally to face and all limbs to light touch * No arm or pronator drift noted - no proprioception deficit noted Cranial Nerve * I: not tested * II: visual acuity 20/20 in LT, RT, and bilateral, no gross abnormalities on funduscopic exam, Pupils, * III, IV, : EOMI, no nystagmus * V: equal sensation in V1, V2, V3 * VII: 5/5 facial muscle strength * VIII: hearing grossly normal * IX, X: equal palatine raise, able to swallow - gag reflex not tested * XI: equal 5/5 shoulder raise and sternocleidomastoid strength * XII: 5/5 tongue strength, no deviation with protrusion Cerebellum * No deficits with finger to nose or fast repetitive motions Gait: minor hesitance with standing due to flank pain, no dizziness upon standing, no abnormalities in gait appreciated Laboratory Results Last 24 Hours Test 04/28/17 06:18 White Blood Count 3.68 K/uL Red Blood Count 3.73 M/uL Hemoglobin 11.1 g/dL Hematocrit 34.1 % Mean Corpuscular Volume 91.4 fL Mean Corpuscular Hemoglobin 29.8 pg Mean Corpuscular Hemoglobin Concent 32.6 g/dl Platelet Count 84 K/uL Mean Platelet Volume 12.3 fL Neutrophils (%) (Auto) 75.5 % Lymphocytes (%) (Auto) 14.9 % Monocytes (%) (Auto) 8.2 % Eosinophils (%) (Auto) 1.1 % Basophils (%) (Auto) 0.0 % Neutrophils # (Auto) 2.78 K/uL Lymphocytes # (Auto) 0.55 K/uL Monocytes # (Auto) 0.30 K/uL Eosinophils # (Auto) 0.04 K/uL Basophils # (Auto) 0.00 K/uL RDW Standard Deviation 67.9 fL RDW Coefficient of Variation 20.2 % Immature Granulocyte % (Auto) 0.3 % Immature Granulocyte # (Auto) 0.01 K/uL Platelet Estimate DECREASED Anisocytosis PRESENT Tear Drop Cells 1+ Prothrombin Time 11.4 SECONDS Prothromb Time International Ratio 1.1 Activated Partial Thromboplast Time 24.5 SECONDS Partial Thromboplastin Ratio 0.9 Sodium Level 144 mmol/L Potassium Level 4.2 mmol/L Chloride Level 114 mmol/L Carbon Dioxide Level 24 mmol/L Anion Gap 6.0 mmol/L Blood Urea Nitrogen 9 mg/dl Creatinine 1.02 mg/dl Est Creatinine Clear Calc Drug Dose 58.8 ml/min Estimated GFR () 80.6 Estimated GFR (Non- 69.6 BUN/Creatinine Ratio 8.4 Random Glucose 121 mg/dl Calcium Level 8.2 mg/dl Phosphorus Level 2.0 mg/dl Magnesium Level 2.1 mg/dl Total Bilirubin 1.6 mg/dl Direct Bilirubin 1.1 mg/dl Aspartate Amino Transf (AST/SGOT) 104 U/L Alanine Aminotransferase (ALT/SGPT) 110 U/L Alkaline Phosphatase 152 U/L Total Protein 5.8 gm/dl Albumin 2.7 gm/dl Lipase 172 U/L Assessment & Plan Patient is a 74yo male with PMH significant for CAD with cath and stent, DVT, PSC, HTN, HLD, and migraines presenting with episode of altered mental status and unresponsive period that has since resolved. Altered mental status with unresponsive episode: resolved * DDX: stroke, TIA, seizure, sepsis induced delirium, encephalopathy due to chronic GI disorders * Head CT/Brain MRI: no acute intracranial process r/o new stroke * TIA: evidence of prior lacunar infarcts with increased stroke risk (migraines , age, HTN, HLD) but unresponsive episodes are not typical * Sepsis unlikely due to rate of onset, not meeting SIRS criteria and rapid correction of symptoms - blood and urine cultures pending * Likely small seizure induced by chronic structural changes from previous lacunar infarct plus encephalopathy from GI disorder * EEG normal but does not r/o seizure activity * Check ammonia levels * Does not require anti-convulsant medication at this time due to inciting event most likely due to GI/metabolic derangement * Continue cardiac monitoring with q4 vital assessment Elevated LFTs - per patient typically elevated prior to his scheduled ERCP PSC * Patient to contact [place] provider to determine if ERCP at [facility] a viable solution * Continue monitoring LFT's and BNP
[2017-04-28] MEDS: ASPIRIN 81 MG CHEW PO SCH (09:16)
--- NOTE | 2017-04-28 09:21 | Neurology Consultation ---
Neurology Consultation Date of Consultation: Apr 28, 2017. Attending Physician: Primary Care Physician: Tom Bucio M.D. Reason for Consultation: Patient is a 77-year-old, who was asked to see at the request of doctors Mario and Grzegorz, for neurologic consultation regarding unresponsive episode April 26, question seizure (versus other) History of Present Illness Source: patient, caregiver, clinic records, hospital records This patient has a history of migraine headaches since childhood. He continues to have migraines about every 6 months or so. He will start out with a warning sensation of flashing lights in both eyes that last up to 2 hours. He will then have a generalized steady pain no significant nature which is all over his head accompanied by nausea, vomiting, and photophobia. They will last about a day but may go into the 2nd day. Aspirin tends to help but he is on no other prescription medication for these headaches. Patient has a history of multiple concussions playing football in high school and in the [employer] for 2 years. He does not remember any specific post concussive symptomatology over time, however. The patient does not remember any stroke in the past. He has had intermittent vertigo since his preteen years, being on and off since, but he has not had this symptomatology in recent years. Patient had an ND in 2000 and has had stents for coronary artery disease. He has been on 81 mg aspirin tablet since that time. Patient experienced ulcerative colitis when he was in the [employer] early in his life. This was very severe condition and lead to colectomy procedures twice. He has had an ileostomy procedure twice and currently has this. He has a history of small-bowel obstruction in the past and he has developed primary sclerosing cholangitis. The patient has been followed for many years at [facility]. They are currently doing ERCP procedures every 3 months. His most recent procedure was in February of 2017. He tells me that when it is "time for another ERCP" he can get elevated liver enzyme values and a metallic taste in his mouth. Patient tells me that for the last 2 weeks, he has not felt well. He has had increase fatigue and lack of energy, feelings of low-grade fevers, and a metallic taste in his mouth. In the evening of April 26, he was watching the [employer] football game on television. He remembers the end of the game but apparently has no recall after this until being open the hospital room. Apparently, a witness who was with him said that he let out a grown, lean to 1 side, foamed at the mouth some, and was unresponsive. He was put down on the ground. He was not having any stiffening or jerking of the limbs, incontinence, or tongue biting. When the EMS arrived his O2 saturation was 88%. He had a right gaze preference and they felt his right upper extremity was somewhat weak. He arrived to the emergency room at 2352 hours on April 26. Blood pressure was 141/75, pulse was 106, respiratory rate 22, temperature 36.1, and O2 saturation 85%. He was given oxygen but was never intubated. On exam in the emergency room, it was felt that he had some slightly slurred speech and some slight weakness in the right upper extremity. CT scan of the head showed some old ischemic changes with no acute changes. KUB showed no bowel obstruction. Chest x-ray showed cardiomegaly with no other acute findings. CBC was remarkable for mild anemia and low platelet count. Today his white count is slow and his platelet count is even lower. Chemistry profile is remarkable for elevated liver enzymes and bilirubin. EKG showed some PACs . The over might monitoring via telemetry revealed one 4 beat episode of PVCs and one 6 beat episode. There was no other clinical accompaniment and no other dysrhythmia. He has been in sinus rhythm in the 60s and 70s since admission. MRI of the brain showed no acute stroke. There was mild to moderate scattered old small vessel ischemia including an old right cerebellar lacune. There is [id number] atrophy in general. I reviewed all the laboratory, imaging, and MRI reports with the patient. Since admission, he has had no further spells. He has not been confused and he has been back to his baseline. He denies any new weakness, numbness, vision problems, headache, spine issues, or balance problems. Past Medical/Surgical History Medical Problems: (1) Abnormal LFTs Status: Acute (2) Cholangitis Status: Acute (3) Confusion Status: Acute (4) Hypokalemia Status: Acute (5) Hypoxia Status: Acute (6) Pneumonitis Status: Acute (7) Thrombocytopenia Status: Acute (8) Unresponsive episode Status: Acute (9) Vomiting Status: Acute History of intermittent migraine headaches with aura History of vertigo in the past, seemingly resolved. History of multiple concussions playing football in high school and in the [employer]. Hypertension Dyslipidemia osteoarthritis History of renal stones ND in the past with coronary artery disease post stenting History of ulcer colitis post colectomy and ileostomy Primary sclerosing cholangitis History of DVT in the past The history of thrombocytopenia History of BPH History of early type 2 diabetes recently Post right shoulder arthroplasty in May 2016 Post bilateral knee replacement 2011 Appendectomy Cholecystectomy Bilateral carpal tunnel syndrome repair Post bilateral cataract surgery Family History Mother age 87 of breast cancer Father age 55 with COPD and "coal handler lung" Social History Patient never smoked cigarette Patient drinks about a glass of wine per day. 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 Smoking Status: Never smoker Smokeless Tobacco Use: No Alcohol Use: occasionally Drug Use: none Marital Status: Housing Status: lives with family Occupation Status: retired, disabled Allergies Coded Allergies: Codeine (Verified Adverse Reaction, Unknown, INTOLERANT ALL NARCOTICS EXC FENTANYL, 04/27/17) Eggs or Egg-derived Products (Verified Adverse Reaction, Unknown, rash with large quantities of egg, 04/27/17) NO ISSUE WITH PROPOFOL Flu Virus Vaccine (Verified Adverse Reaction, Unknown, pt had rash with lg quantities of egg, 04/27/17) Meperidine (Verified Adverse Reaction, Unknown, INTOLERANT ALL NARCOTICS EXC FENTANYL, 04/27/17) Morphine (Verified Adverse Reaction, Unknown, NAUSEA, VOMITING, FLUSHED, 04/27/17) NAUSEA,VOMITING,FLUSHED Current Inpatient Medications Current Inpatient Medications Medications (Trade) Dose Ordered Sig/Alberto Route Start Time Stop Time Status Last Admin Dose Admin Piperacillin Sod/ Tazobactam Sod 4.5 gm/Dextrose 120 ml @ 30 mls/hr Q8H IV 04/27/17 08:00 05/07/17 07:59 04/28/17 01:12 30 MLS/HR Ondansetron HCl (Zofran Inj) 4 mg Q6H PRN IV 04/27/17 02:00 05/27/17 01:59 Potassium Chloride/Sodium Chloride 1,000 ml @ 150 mls/hr Q6H40M IV 04/27/17 01:51 05/27/17 01:50 04/28/17 01:12 150 MLS/HR Enoxaparin Sodium (Lovenox Inj) 40 mg Q24H SQ 04/27/17 09:00 05/27/17 08:59 Future Hold Acetaminophen (Tylenol Tab) 650 mg Q4H PRN PO 04/27/17 02:00 05/27/17 01:59 Lorazepam (Ativan Inj) 0.5 mg Q4H PRN IV 04/27/17 02:00 05/27/17 01:59 Al Hydrox/Mg Hydrox/Simethicone (Maalox Max Susp) 15 ml Q4H PRN PO 04/27/17 02:00 05/27/17 01:59 Pantoprazole Sodium 40 mg/ Syringe 10 ml @ 5 mls/min DAILY IV 04/27/17 09:00 05/27/17 08:59 04/27/17 09:37 5 MLS/MIN Alfuzosin HCl (Uroxatral Tab) 10 mg HS PO 04/27/17 21:00 05/27/17 20:59 04/27/17 21:12 10 MG Allopurinol (Zyloprim Tab) 300 mg QAM PO 04/27/17 09:00 05/27/17 08:59 04/27/17 09:32 300 MG Aspirin (Aspirin Chew) 81 mg DAILY PO 04/27/17 09:00 05/27/17 08:59 04/27/17 09:32 81 MG Calcium/Vitamin D (Caltrate Plus Tab) 1 tab QAM PO 04/27/17 09:00 05/27/17 08:59 04/27/17 09:37 1 TAB Diclofenac Sodium (Voltaren Tab) 75 mg QAM PO 04/27/17 09:00 05/27/17 08:59 04/27/17 09:33 75 MG Finasteride (Proscar Tab) 5 mg QPM PO 04/27/17 21:00 05/27/17 20:59 04/27/17 21:12 5 MG Fish Oil ([place]-3 (Purified Fish Oil) Cap) 1 gm QAM PO 04/27/17 09:00 05/27/17 08:59 04/27/17 09:29 1 GM Folic Acid (Folvite Tab) 1 mg QPM PO 04/27/17 21:00 05/27/17 20:59 04/27/17 21:13 1 MG Loratadine (Claritin Tab) 10 mg QAM PRN PO 04/27/17 02:00 05/27/17 01:59 Magnesium Oxide (Mag-Ox Tab) 400 mg QAM PO 04/27/17 09:00 05/27/17 08:59 04/27/17 09:33 400 MG Meclizine HCl (Antivert Tab) 25 mg TID PRN PO 04/27/17 02:00 05/27/17 01:59 Metoprolol Tartrate (Lopressor Tab) 75 mg QAM PO 04/27/17 09:00 05/27/17 08:59 04/27/17 09:31 75 MG Metoprolol Tartrate (Lopressor Tab) 100 mg HS PO 04/27/17 21:00 05/27/17 20:59 04/27/17 21:13 100 MG Misoprostol (Cytotec Tab) 200 mcg QAM PO 04/27/17 09:00 05/27/17 08:59 04/27/17 09:30 200 MCG Ondansetron HCl (Zofran Odt) 4 mg Q6H PRN SL 04/27/17 02:00 05/27/17 01:59 Rosuvastatin Calcium (Crestor Tab) 20 mg HS PO 04/27/17 21:00 05/27/17 20:59 04/27/17 21:13 20 MG Ursodiol (Actigall Cap) 300 mg BID PO 04/27/17 09:00 05/27/17 08:59 04/27/17 21:12 300 MG Vancomycin HCl (Consult) 1 ea UD PRN N/A 04/27/17 03:30 05/27/17 03:29 Piperacillin Sod/ Tazobactam Sod (Consult) 1 ea UD PRN N/A 04/27/17 03:30 05/27/17 03:29 Oxycodone HCl (Roxicodone Immediate Rel Tab) 5 mg Q6H PRN PO 04/27/17 09:30 05/11/17 09:29 Vancomycin HCl 1250 mg/Sodium Chloride 275 ml @ 125 mls/hr Q16H IV 04/27/17 18:00 05/07/17 17:59 04/27/17 17:45 125 MLS/HR Review of Systems Constitutional: + fatigue, No weakness Eyes: No worsening of vision, No diplopia ENT: No sore throat, No trouble swallowing Respiratory: No cough, No shortness of breath Cardiovascular: No chest pain, No palpitations Abdomen: No pain, No nausea Musculoskeletal: No joint pain, No muscle pain Genitourinary - Male: No dysuria, No urinary incontinence Neurologic: No memory loss, No numbness/tingling, No balance problems Psychiatric: No depression symptoms, No anxiety Endocrine: + fatigue Hematologic / Lymphatic: No abnormal bleeding/bruising Integumentary: No rash Allergic / Immunologic: No hives Physical Exam Vital Signs (Past 24 Hrs): Date Time Temp Pulse Resp B/P (MAP) Pulse Ox O2 Delivery O2 Flow Rate FiO2 04/28/17 07:37 37.1 61 16 156/83 (107) 91 04/28/17 04:00 Room Air 04/28/17 02:59 36.7 59 18 128/67 (87) 92 Room Air 04/28/17 00:31 36.5 64 18 127/60 (82) 94 Room Air 04/28/17 00:00 Room Air 04/27/17 20:00 Room Air 04/27/17 16:00 Room Air 04/27/17 16:00 36.7 64 19 142/77 (98) 92 Room Air 04/27/17 14:00 65 14 130/72 (91) 94 04/27/17 12:00 Room Air 04/27/17 12:00 36.7 66 16 125/68 (87) 91 04/27/17 10:00 15 149/84 (105) 93 Patient is right-handed. The patient is awake and alert. Speech is normal without aphasia or dysarthria. Mentation and thought processes are intact with orientation and normal fund of knowledge. Mood and affect are normal and appropriate. Appearance and grooming are normal. Long and short-term memory are intact. The discs are sharp with positive venous pulsations. There are no exudates, hemorrhages, or blood vessel changes seen. Pupils are 3mm bilaterally and reactive to light. Extraocular eye muscles are intact without nystagmus. Visual acuity and visual avalos seem normal grossly to confrontation. There are no deficits to sensation of the face bilaterally. Corneal reflexes are positive bilaterally. Facial strength and symmetry is normal bilaterally. Hearing seems intact grossly to voice and finger rub. Palate moves well without asymmetry. There is normal sternocleidomastoid and trapezius strength bilaterally. Tongue is midline with good strength bilaterally. Neck is with full range of motion without discomfort. There are no cervical bruits. There are no cranial or ocular bruits. Heart is without murmur. Cervical, thoracic, and lumbar spine are nontender to palpation. Gait is normal. There is good are swing, turn, stance, and balance. With outstretched arms there is no drift. There are no resting, postural, or action tremors. There is no ataxia with [id number] testing. There is good facility in the hands. There are no abnormal involuntary movements noted. Motor strength is 5/5 diffusely in the arms bilaterally including deltoids, biceps, brachioradialis, wrist flexors and extensors, flat hammerer, and intrinsic hand muscles. Motor strength is 5/5 diffusely in the legs bilaterally including hip flexors, quadriceps, hamstring, gastrocnemius, tibialis anterior, tibialis posterior, and peroneii muscles bilaterally. Toe extensors are normal and there is good bulk in the extensor digitorum brevis muscle bilaterally. The limbs have good tone without rigidity or spasticity, and there is no atrophy noted. Muscle bulk is normal, there is no tenderness, no myotonia noted to percussion, and no fasciculations seen. Sensory examination is intact to pin and touch throughout all four limbs. Reflexes are 2/4 in the biceps, triceps, brachioradialis, and quadriceps tendons bilaterally. Achilles tendon reflexes are 1/4 bilaterally. Toes are downgoing with plantar stimulation bilaterally. Peripheral pulses are present and of normal quality distally in all four limbs. There is no peripheral edema noted. Laboratory Results Past 24 Hours: 04/28/17 06:18 Red Blood Count 3.73, Mean Corpuscular Volume 91.4, Mean Corpuscular Hemoglobin 29.8, Mean Corpuscular Hemoglobin Concent 32.6, Mean Platelet Volume 12.3, Neutrophils (%) (Auto) 75.5, Lymphocytes (%) (Auto) 14.9, Monocytes (%) (Auto) 8.2, Eosinophils (%) (Auto) 1.1, Basophils (%) (Auto) 0.0, Neutrophils # (Auto) 2.78, Lymphocytes # (Auto) 0.55, Monocytes # (Auto) 0.30, Eosinophils # (Auto) 0.04, Basophils # (Auto) 0.00 04/28/17 06:18 Test 04/28/17 06:18 White Blood Count 3.68 K/uL (4.8-10.8) Red Blood Count 3.73 M/uL (4.7-6.1) Hemoglobin 11.1 g/dL (14.0-18.0) Hematocrit 34.1 % (42-52) Mean Corpuscular Volume 91.4 fL (80-100) Mean Corpuscular Hemoglobin 29.8 pg (25-34) Mean Corpuscular Hemoglobin Concent 32.6 g/dl (32-36) Platelet Count 84 K/uL (130-400) Mean Platelet Volume 12.3 fL (7.4-10.4) Neutrophils (%) (Auto) 75.5 % Lymphocytes (%) (Auto) 14.9 % Monocytes (%) (Auto) 8.2 % Eosinophils (%) (Auto) 1.1 % Basophils (%) (Auto) 0.0 % Neutrophils # (Auto) 2.78 K/uL (1.4-6.5) Lymphocytes # (Auto) 0.55 K/uL (1.2-3.4) Monocytes # (Auto) 0.30 K/uL (0.11-0.59) Eosinophils # (Auto) 0.04 K/uL (0-0.5) Basophils # (Auto) 0.00 K/uL (0-0.2) RDW Standard Deviation 67.9 fL (36.4-46.3) RDW Coefficient of Variation 20.2 % (11.5-14.5) Immature Granulocyte % (Auto) 0.3 % Immature Granulocyte # (Auto) 0.01 K/uL (0.00-0.02) Platelet Estimate DECREASED Anisocytosis PRESENT Tear Drop Cells 1+ Prothrombin Time 11.4 SECONDS (9.0-12.0) Prothromb Time International Ratio 1.1 (0.9-1.1) Activated Partial Thromboplast Time 24.5 SECONDS (21.0-31.0) Partial Thromboplastin Ratio 0.9 Anion Gap 6.0 mmol/L (3-11) Est Creatinine Clear Calc Drug Dose 58.8 ml/min Estimated GFR () 80.6 Estimated GFR (Non- 69.6 BUN/Creatinine Ratio 8.4 (10-20) Calcium Level 8.2 mg/dl (8.5-10.1) Phosphorus Level 2.0 mg/dl (2.5-4.9) Magnesium Level 2.1 mg/dl (1.8-2.4) Total Bilirubin 1.6 mg/dl (0.2-1) Direct Bilirubin 1.1 mg/dl (0-0.2) Aspartate Amino Transf (AST/SGOT) 104 U/L (15-37) Alanine Aminotransferase (ALT/SGPT) 110 U/L (12-78) Alkaline Phosphatase 152 U/L (45-117) Total Protein 5.8 gm/dl (6.4-8.2) Albumin 2.7 gm/dl (3.4-5.0) Lipase 172 U/L (73-393) Imaging MRI OF THE BRAIN WITHOUT AND WITH IV CONTRAST CLINICAL HISTORY: Acute change in mental status. Suspected seizure. COMPARISON STUDY: Head CT dated 06/27/2017 TECHNIQUE: MRI of the brain was performed from the vertex to the skull base utilizing various T1 and T2 weighted sequences. Following the IV administration of 8 mL of Gadavist contrast, additional enhanced images were obtained. FINDINGS: Sagittal T1, axial diffusion, proton density and T2 weighted axial, coronal FLAIR, and pre and post axial T1-weighted images were acquired. These were supplemented with post gadolinium coronal T1 weighted images. No intra or extra-axial mass lesions are visualized. Axial diffusion-weighted images reveal no evidence of acute or subacute infarction. There is a cavum septa pellucida and cavum vergae. There is no hydrocephalus. Proton density T2-weighted and FLAIR images reveal scattered foci of increased T2 signal within the white matter, likely on a small vessel basis. There there are scattered lacunar infarcts most pronounced within the cerebellar hemispheres.. There are no abnormal flow voids. There is no evidence of pathologic enhancement. Coronal T2-weighted images through the temporal lobes reveal symmetric hippocampal formations. IMPRESSION: 1. No acute intracranial findings 2. No evidence of acute or subacute infarction 3. No evidence of intracranial mass 4. Foci of increased T2 signal within the white matter and scattered lacunar infarcts likely small vessel basis Electronically signed by: Anderson Dietrich M.D. 04/27/2017 9:14 PM Impression 1. Unresponsive episode April 26 The etiology of this is not readily apparent but I suspect a seizure. He likely had postictal phenomenon with combativeness/confusion, right upper extremity weakness and other. Etiology of the seizure is not obvious either although his old, small vessel ischemic disease would put him at risk as well as an early encephalopathy from abnormal liver enzymes. If he was initiating an infection/sepsis process, this would put him at risk for seizure. There was no evidence for stroke by MRI. This is not consistent with a TIA either. Currently he is doing quite well, clinically, from a neurologic standpoint. He has no focal neurologic signs, meningeal signs, or encephalopathy. EEG yesterday was normal awake and drowsy. 2. For primary sclerosing cholangitis with elevated liver enzymes, thrombocytopenia, low white count He seems due for his next ERCP procedure. An early infection cannot be excluded either. 3. Mild to moderate old small vessel ischemic changes seen on MRI. Risk factors for this would be hypertension, dyslipidemia, diabetes, and has history of migraines. In addition, I cannot exclude previous head trauma/concussion as a risk factor for the changes seen on MRI of the brain He is on 81 mg aspirin tablet daily. 4. History of migraine headaches. These are longstanding but very intermittent currently. 5. History of multiple concussions. Plan 1. I do not believe this patient needs an anticonvulsant at this time. 2. I do not see a reason for additional neurologic testing or treatment otherwise. I have discussed the case with Dr. Brizuela Please contact me if I can be of further assistance I have spent a total of 135 minutes with this patient, including records review , [id number] evaluation and discussion of diagnosis and treatment options with the patient, and with medical staff and treating clinicians.
[2017-04-28] MEDS: VANCOMYCIN INJ 1,250 MG in SODIUM CHLORIDE 0.9% 250ML 250 ML IV SCH (10:29)
[2017-04-28 11:08] VITALS: BP 151/78; PULSE 55; TEMP 36.8; O2SAT 92
--- NOTE | 2017-04-28 15:19 | Family Medicine Progress Note ---
Progress Note Date of Service Apr 28, 2017. Subjective Pt evaluation today including: conversation w/ patient, physical exam, chart review, lab review Pain: denies pain PO Intake: full liquid diet Voiding: no voiding problems 77-year-old male with a past medical history of primary sclerosing cholangitis admitted after he had a unresponsive episode 2 days ago. Has been worked up for possible stroke versus seizure. Has been doing well with no acute overnight events. denies any abdominal pain, , nausea, vomiting or abnormal ostomy output. Denies any chest pain, palpitations or lightheadedness or dizziness. Constitutional: No fever, No chills Eyes: No worsening of vision ENT: No hearing loss Respiratory: No cough Cardiovascular: No chest pain, No orthopnea Abdomen: No pain, No nausea, No vomiting, No diarrhea, No GI bleeding Musculoskeletal: No joint pain Male : No dysuria Neurologic: No memory loss Psychiatric: No depression symptoms Heme: No abnormal bleeding/bruising Medications Current Inpatient Medications Medications (Trade) Dose Ordered Sig/Alberto Route Start Time Stop Time Status Last Admin Dose Admin Piperacillin Sod/ Tazobactam Sod 4.5 gm/Dextrose 120 ml @ 30 mls/hr Q8H IV 04/27/17 08:00 05/07/17 07:59 04/28/17 08:05 30 MLS/HR Ondansetron HCl (Zofran Inj) 4 mg Q6H PRN IV 04/27/17 02:00 05/27/17 01:59 Potassium Chloride/Sodium Chloride 1,000 ml @ 150 mls/hr Q6H40M IV 04/27/17 01:51 05/27/17 01:50 04/28/17 11:33 150 MLS/HR Enoxaparin Sodium (Lovenox Inj) 40 mg Q24H SQ 04/27/17 09:00 05/27/17 08:59 Future Hold Acetaminophen (Tylenol Tab) 650 mg Q4H PRN PO 04/27/17 02:00 05/27/17 01:59 Lorazepam (Ativan Inj) 0.5 mg Q4H PRN IV 04/27/17 02:00 05/27/17 01:59 Al Hydrox/Mg Hydrox/Simethicone (Maalox Max Susp) 15 ml Q4H PRN PO 04/27/17 02:00 05/27/17 01:59 Pantoprazole Sodium 40 mg/ Syringe 10 ml @ 5 mls/min DAILY IV 04/27/17 09:00 05/27/17 08:59 04/28/17 08:09 5 MLS/MIN Alfuzosin HCl (Uroxatral Tab) 10 mg HS PO 04/27/17 21:00 05/27/17 20:59 04/27/17 21:12 10 MG Allopurinol (Zyloprim Tab) 300 mg QAM PO 04/27/17 09:00 05/27/17 08:59 04/28/17 08:15 300 MG Aspirin (Aspirin Chew) 81 mg DAILY PO 04/27/17 09:00 05/27/17 08:59 04/28/17 09:16 81 MG Calcium/Vitamin D (Caltrate Plus Tab) 1 tab QAM PO 04/27/17 09:00 05/27/17 08:59 04/28/17 08:13 1 TAB Diclofenac Sodium (Voltaren Tab) 75 mg QAM PO 04/27/17 09:00 05/27/17 08:59 04/28/17 08:15 75 MG Finasteride (Proscar Tab) 5 mg QPM PO 04/27/17 21:00 05/27/17 20:59 04/27/17 21:12 5 MG Fish Oil (Guy-3 (Purified Fish Oil) Cap) 1 gm QAM PO 04/27/17 09:00 05/27/17 08:59 04/28/17 08:10 1 GM Folic Acid (Folvite Tab) 1 mg QPM PO 04/27/17 21:00 05/27/17 20:59 04/27/17 21:13 1 MG Loratadine (Claritin Tab) 10 mg QAM PRN PO 04/27/17 02:00 05/27/17 01:59 Magnesium Oxide (Mag-Ox Tab) 400 mg QAM PO 04/27/17 09:00 05/27/17 08:59 04/28/17 08:09 400 MG Meclizine HCl (Antivert Tab) 25 mg TID PRN PO 04/27/17 02:00 05/27/17 01:59 Metoprolol Tartrate (Lopressor Tab) 75 mg QAM PO 04/27/17 09:00 05/27/17 08:59 04/28/17 08:12 75 MG Metoprolol Tartrate (Lopressor Tab) 100 mg HS PO 04/27/17 21:00 05/27/17 20:59 04/27/17 21:13 100 MG Misoprostol (Cytotec Tab) 200 mcg QAM PO 04/27/17 09:00 05/27/17 08:59 04/28/17 08:10 200 MCG Ondansetron HCl (Zofran Odt) 4 mg Q6H PRN SL 04/27/17 02:00 05/27/17 01:59 Rosuvastatin Calcium (Crestor Tab) 20 mg HS PO 04/27/17 21:00 05/27/17 20:59 04/27/17 21:13 20 MG Ursodiol (Actigall Cap) 300 mg BID PO 04/27/17 09:00 05/27/17 08:59 04/28/17 08:14 300 MG Piperacillin Sod/ Tazobactam Sod (Consult) 1 ea UD PRN N/A 04/27/17 03:30 05/27/17 03:29 Oxycodone HCl (Roxicodone Immediate Rel Tab) 5 mg Q6H PRN PO 04/27/17 09:30 05/11/17 09:29 Objective Vital Signs Date Time Temp Pulse Resp B/P (MAP) Pulse Ox O2 Delivery O2 Flow Rate FiO2 04/28/17 12:00 Room Air 04/28/17 11:08 36.8 55 16 151/78 (102) 92 04/28/17 09:46 Room Air 04/28/17 08:00 Room Air 04/28/17 07:37 37.1 61 16 156/83 (107) 91 04/28/17 04:00 Room Air 04/28/17 02:59 36.7 59 18 128/67 (87) 92 Room Air 04/28/17 00:31 36.5 64 18 127/60 (82) 94 Room Air 04/28/17 00:00 Room Air 04/27/17 20:00 Room Air 04/27/17 16:00 Room Air 04/27/17 16:00 36.7 64 19 142/77 (98) 92 Room Air Physical Exam General Appearance: WD/WN, no apparent distress Eyes: normal inspection ENT: hearing grossly normal Neck: supple Respiratory/Chest: chest non-tender, lungs clear, normal breath sounds Cardiovascular: regular rate, rhythm Abdomen: normal bowel sounds, non tender, + pertinent finding (colostomy bag to the left lower quadrant) Extremities: normal inspection, no pedal edema Neurologic/Psychiatric: alert, normal mood/affect, oriented x 3 Laboratory Results 04/28/17 06:18 Red Blood Count 3.73, Mean Corpuscular Volume 91.4, Mean Corpuscular Hemoglobin 29.8, Mean Corpuscular Hemoglobin Concent 32.6, Mean Platelet Volume 12.3, Neutrophils (%) (Auto) 75.5, Lymphocytes (%) (Auto) 14.9, Monocytes (%) (Auto) 8.2, Eosinophils (%) (Auto) 1.1, Basophils (%) (Auto) 0.0, Neutrophils # (Auto) 2.78, Lymphocytes # (Auto) 0.55, Monocytes # (Auto) 0.30, Eosinophils # (Auto) 0.04, Basophils # (Auto) 0.00 04/28/17 06:18 Test 04/28/17 06:18 04/28/17 09:30 White Blood Count 3.68 K/uL (4.8-10.8) Red Blood Count 3.73 M/uL (4.7-6.1) Hemoglobin 11.1 g/dL (14.0-18.0) Hematocrit 34.1 % (42-52) Mean Corpuscular Volume 91.4 fL (80-100) Mean Corpuscular Hemoglobin 29.8 pg (25-34) Mean Corpuscular Hemoglobin Concent 32.6 g/dl (32-36) Platelet Count 84 K/uL (130-400) Mean Platelet Volume 12.3 fL (7.4-10.4) Neutrophils (%) (Auto) 75.5 % Lymphocytes (%) (Auto) 14.9 % Monocytes (%) (Auto) 8.2 % Eosinophils (%) (Auto) 1.1 % Basophils (%) (Auto) 0.0 % Neutrophils # (Auto) 2.78 K/uL (1.4-6.5) Lymphocytes # (Auto) 0.55 K/uL (1.2-3.4) Monocytes # (Auto) 0.30 K/uL (0.11-0.59) Eosinophils # (Auto) 0.04 K/uL (0-0.5) Basophils # (Auto) 0.00 K/uL (0-0.2) RDW Standard Deviation 67.9 fL (36.4-46.3) RDW Coefficient of Variation 20.2 % (11.5-14.5) Immature Granulocyte % (Auto) 0.3 % Immature Granulocyte # (Auto) 0.01 K/uL (0.00-0.02) Platelet Estimate DECREASED Anisocytosis PRESENT Tear Drop Cells 1+ Prothrombin Time 11.4 SECONDS (9.0-12.0) Prothromb Time International Ratio 1.1 (0.9-1.1) Activated Partial Thromboplast Time 24.5 SECONDS (21.0-31.0) Partial Thromboplastin Ratio 0.9 Anion Gap 6.0 mmol/L (3-11) Est Creatinine Clear Calc Drug Dose 58.8 ml/min Estimated GFR () 80.6 Estimated GFR (Non- 69.6 BUN/Creatinine Ratio 8.4 (10-20) Calcium Level 8.2 mg/dl (8.5-10.1) Phosphorus Level 2.0 mg/dl (2.5-4.9) Magnesium Level 2.1 mg/dl (1.8-2.4) Total Bilirubin 1.6 mg/dl (0.2-1) Direct Bilirubin 1.1 mg/dl (0-0.2) Aspartate Amino Transf (AST/SGOT) 104 U/L (15-37) Alanine Aminotransferase (ALT/SGPT) 110 U/L (12-78) Alkaline Phosphatase 152 U/L (45-117) Total Protein 5.8 gm/dl (6.4-8.2) Albumin 2.7 gm/dl (3.4-5.0) Lipase 172 U/L (73-393) Ammonia 27.2 umol/L (11-32) Assessment and Plan 77-year-old male with a past medical history of ulcerative colitis status post ileostomy , primary sclerosing cholangitis , coronary artery disease status post stents presented to the ED after he had an unresponsive episode while watching football game 2 days ago. Per EMS he was found to have episodes of apnea and combativeness. He usually manages PSC flares with Cipro 500 mg twice daily and gets ERCP at [facility] every 3 months. He is scheduled to get an ERCP in couple weeks. AMS: Now resolved - Stroke versus seizure versus encephalopathy - Head CT and brain MRI negative for stroke, EEG negative for seizure pathology - Appreciate neurology recommendations - Ammonia level within normal limits Pain control with Tylenol 650mg PO Q6H PRN + Oxicodone PO 5mg Q6H PRN for pain. + Dilaudid IV 0.5mg Q4H PRN for pain. Primary sclerosing cholangitis: - LFTs elevated , AST 104, ALT 110, alkaline phosphatase 152 - Total bili at 1.6 decreased from 2.1 yesterday - The patient's family insists that they would like the ERCP done at [facility] where they've been going for the last 40 years and wanted to get in touch with their doctor to see if he could be rescheduled sooner - Vancomycin has been discontinued and is currently on Zosyn - Continue Protonix 40 mg, ursodiol Coronary artery disease status post stents in 2001 - Continue aspirin 81 mg, metoprolol 75 mg in a.m. 100 mg p.m., continue Crestor BPH: - Continue finasteride and alfuzosin Gout: -Continue allopurinol daily Hyperglycemia: Improving - initial blood sugars were> 200 - Hemoglobin A1c 7.1 in February 2017 DVT prophylaxis: SCDs Full code Disposition: In telemetry. We'll try to contact Dr. Mcclellan at [facility] about scheduling ERCP sooner. Resident Tracking Resident Involvement: Resident Care Provided Care Provided: Adult [facility] Medicine
[2017-04-28 16:20] VITALS: BP 112/63; PULSE 60; TEMP 37; O2SAT 92
--- NOTE | 2017-04-28 17:22 | PROGRESS NOTE ---
DATE: 04/28/2017 The patient presented to the hospital over the weekend with a syncopal episode. The exact nature is unclear. It is possible that it may have been related to a seizure, but the neurologists are reluctant to begin anticonvulsants at this time, especially given his underlying liver disease. As far as his liver is concerned, his bilirubin has dropped to 1.6, which is below his baseline. His ammonia level was normal and his mental status is clear. There is no evidence of liver dysfunction at this time or encephalopathy. He is scheduled to go to [facility] in a couple weeks to have a routine ERCP, which he gets every 3 months to help keep his bile ducts cleaned out from his sclerosing cholangitis. His called today to see if that could be moved up and over the weekend, Dr. Spence offered the opportunity for them to have it done locally rather than traveling to [place] each time. For now, they want to keep going to [place] for this procedure and that is fine. IMPRESSION: The patient had syncopal episode and remains unclear. He is improving and plans are being made for him to pursue his outpatient ERCP at [facility] may be a little bit sooner than the next 2 weeks. At this point, we have nothing further to offer and we will sign off unless something comes up later in his hospital stay.
[2017-04-28 19:38] VITALS: BP 143/71; PULSE 59; TEMP 37; O2SAT 91
[2017-04-28] MEDS: FINASTERIDE 5 MG TAB PO SCH (21:05)
[2017-04-28] MEDS: ALFUZosin TAB 10 MG TAB PO SCH (21:05)
[2017-04-28] MEDS: ROSUVASTATIN CALCIUM 20 MG TAB PO SCH (21:06)
[2017-04-29] VITALS (13 sets, daily range): BP systolic 132–169; BP diastolic 65–88; PULSE 52–62; TEMP 36.3–37; O2SAT 85–93
[2017-04-29] MEDS: PIPERACILL/TAZOBAC IV 4.5 GM in DEXTROSE 5% 100ML 100 ML IV SCH ×2 (00:47→08:49)
[2017-04-29] MEDS: NSS + 20MEQ KCL 1000ML 1,000 ML IV SCH ×2 (00:48→10:41)
[2017-04-29] MEDS ORDERED: VANCOMYCIN TROUGH ONE (01:30)
[2017-04-29 07:40] LABS: MEAN CORPUSCULAR HGB CONC 32.3 g/dl (32-36)
[2017-04-29 07:45] LABS: HEMATOCRIT 32.8 % (42-52); MEAN CELL VOLUME 91.4 fL (80-100); MEAN CORPUSCULAR HEMOGLOBIN 29.5 pg (25-34); RED BLOOD COUNT 3.59 M/uL (4.7-6.1); WHITE BLOOD COUNT 2.57 K/uL (4.8-10.8)
[2017-04-29 08:10] LABS: BUN/CREATININE RATIO 7.4 (10-20); CALCIUM 8.1 mg/dl (8.5-10.1); CREATININE 0.95 mg/dl (0.60-1.40); POTASSIUM 4.1 mmol/L (3.5-5.1)
[2017-04-29 08:14] LABS: PHOSPHORUS 2.1 mg/dl (2.5-4.9)
[2017-04-29] MEDS: MAGNESIUM OXIDE 400 MG TAB PO SCH (08:45)
[2017-04-29] MEDS: URSODIOL 300 MG CAP PO SCH ×2 (08:45→21:07)
[2017-04-29] MEDS: PANTOprazole INJ 40 MG in SYRINGE 0 ML IV SCH (08:45)
[2017-04-29] MEDS: OMEGA-3 (PURIFIED FISH OIL) 1 GM CAP PO SCH (08:46)
[2017-04-29] MEDS: MISOPROSTOL 200 MCG TAB PO SCH (08:46)
[2017-04-29] MEDS: CALCIUM 600MG + VIT D 400 IU TAB PO SCH (08:48)
[2017-04-29] MEDS: DICLOFENAC SOD EC 75 MG TABCR PO SCH (08:48)
[2017-04-29] MEDS: ALLOPURINOL 300 MG TAB PO SCH (08:50)
[2017-04-29] MEDS: METOPROLOL TARTRATE 50 MG TAB PO SCH ×2 (08:52→21:08)
[2017-04-29] MEDS: ASPIRIN 81 MG CHEW PO SCH (08:58)
[2017-04-29 09:00] LABS: PLATELET COUNT 69 K/uL (130-400)
[2017-04-29 09:02] LABS: ANISOCYTOSIS PRESENT; BASO % 0.4 %; BASO ABS # 0.01 K/uL (0-0.2); COMPLETE YES; EOS % 1.9 %; IG% 0.4 %; LYMPH ABS # 0.54 K/uL (1.2-3.4); MONO % 7.4 %; NEUT % 68.9 %; PLT ESTIMATE DECREASED; TEAR DROP CELLS 1+
--- NOTE | 2017-04-29 10:35 | Family Medicine Progress Note ---
Progress Note Date of Service Apr 29, 2017. Subjective Pt evaluation today including: conversation w/ patient, physical exam, chart review, lab review Pain: good doing well. No Nausea, vomiting or abdominal pain, no change in ostomy output. sats had dropped overnight to 85 and he was placed on 2 L of oxygen via nasal cannula. denies any shortness of breath currently or chest tightness and is currently on room air Constitutional: No fever, No chills Eyes: No worsening of vision ENT: No hearing loss Respiratory: No cough Cardiovascular: No chest pain Abdomen: No pain Musculoskeletal: No joint pain Medications Current Inpatient Medications Medications (Trade) Dose Ordered Sig/Alberto Route Start Time Stop Time Status Last Admin Dose Admin Piperacillin Sod/ Tazobactam Sod 4.5 gm/Dextrose 120 ml @ 30 mls/hr Q8H IV 04/27/17 08:00 05/07/17 07:59 04/29/17 08:49 30 MLS/HR Ondansetron HCl (Zofran Inj) 4 mg Q6H PRN IV 04/27/17 02:00 05/27/17 01:59 Potassium Chloride/Sodium Chloride 1,000 ml @ 150 mls/hr Q6H40M IV 04/27/17 01:51 05/27/17 01:50 04/29/17 00:48 150 MLS/HR Enoxaparin Sodium (Lovenox Inj) 40 mg Q24H SQ 04/27/17 09:00 05/27/17 08:59 Future Hold Acetaminophen (Tylenol Tab) 650 mg Q4H PRN PO 04/27/17 02:00 05/27/17 01:59 Lorazepam (Ativan Inj) 0.5 mg Q4H PRN IV 04/27/17 02:00 05/27/17 01:59 Al Hydrox/Mg Hydrox/Simethicone (Maalox Max Susp) 15 ml Q4H PRN PO 04/27/17 02:00 05/27/17 01:59 Pantoprazole Sodium 40 mg/ Syringe 10 ml @ 5 mls/min DAILY IV 04/27/17 09:00 05/27/17 08:59 04/29/17 08:45 5 MLS/MIN Alfuzosin HCl (Uroxatral Tab) 10 mg HS PO 04/27/17 21:00 05/27/17 20:59 04/28/17 21:05 10 MG Allopurinol (Zyloprim Tab) 300 mg QAM PO 04/27/17 09:00 05/27/17 08:59 04/29/17 08:50 300 MG Aspirin (Aspirin Chew) 81 mg DAILY PO 04/27/17 09:00 05/27/17 08:59 04/29/17 08:58 81 MG Calcium/Vitamin D (Caltrate Plus Tab) 1 tab QAM PO 04/27/17 09:00 05/27/17 08:59 04/29/17 08:48 1 TAB Diclofenac Sodium (Voltaren Tab) 75 mg QAM PO 04/27/17 09:00 05/27/17 08:59 04/29/17 08:48 75 MG Finasteride (Proscar Tab) 5 mg QPM PO 04/27/17 21:00 05/27/17 20:59 04/28/17 21:05 5 MG Fish Oil (Elgin-3 (Purified Fish Oil) Cap) 1 gm QAM PO 04/27/17 09:00 05/27/17 08:59 04/29/17 08:46 1 GM Folic Acid (Folvite Tab) 1 mg QPM PO 04/27/17 21:00 05/27/17 20:59 04/28/17 21:06 1 MG Loratadine (Claritin Tab) 10 mg QAM PRN PO 04/27/17 02:00 05/27/17 01:59 Magnesium Oxide (Mag-Ox Tab) 400 mg QAM PO 04/27/17 09:00 05/27/17 08:59 04/29/17 08:45 400 MG Meclizine HCl (Antivert Tab) 25 mg TID PRN PO 04/27/17 02:00 05/27/17 01:59 Metoprolol Tartrate (Lopressor Tab) 75 mg QAM PO 04/27/17 09:00 05/27/17 08:59 04/29/17 08:52 100 MG Metoprolol Tartrate (Lopressor Tab) 100 mg HS PO 04/27/17 21:00 05/27/17 20:59 04/28/17 21:06 100 MG Misoprostol (Cytotec Tab) 200 mcg QAM PO 04/27/17 09:00 05/27/17 08:59 04/29/17 08:46 200 MCG Ondansetron HCl (Zofran Odt) 4 mg Q6H PRN SL 04/27/17 02:00 05/27/17 01:59 Rosuvastatin Calcium (Crestor Tab) 20 mg HS PO 04/27/17 21:00 05/27/17 20:59 04/28/17 21:06 20 MG Ursodiol (Actigall Cap) 300 mg BID PO 04/27/17 09:00 05/27/17 08:59 04/29/17 08:45 300 MG Piperacillin Sod/ Tazobactam Sod (Consult) 1 ea UD PRN N/A 04/27/17 03:30 05/27/17 03:29 Oxycodone HCl (Roxicodone Immediate Rel Tab) 5 mg Q6H PRN PO 04/27/17 09:30 05/11/17 09:29 Objective Vital Signs Date Time Temp Pulse Resp B/P (MAP) Pulse Ox O2 Delivery O2 Flow Rate FiO2 04/29/17 08:26 Room Air 04/29/17 08:00 Room Air 04/29/17 07:46 36.8 60 20 143/65 (91) 92 04/29/17 04:14 36.9 58 20 134/71 (92) 92 Nasal Cannula 2.0 04/29/17 04:12 85 Room Air 04/29/17 04:00 Room Air 04/29/17 00:13 37.0 62 18 157/75 (102) 91 Room Air 04/28/17 23:59 Room Air 04/28/17 20:00 Room Air 04/28/17 19:38 37.0 59 18 143/71 (95) 91 Room Air 04/28/17 16:20 37.0 60 18 112/63 (79) 92 Room Air 21 04/28/17 16:00 Room Air 04/28/17 15:58 Room Air 04/28/17 12:00 Room Air 04/28/17 11:08 36.8 55 16 151/78 (102) 92 Physical Exam General Appearance: WD/WN, no apparent distress Eyes: normal inspection ENT: normal ENT inspection, hearing grossly normal Neck: supple Respiratory/Chest: chest non-tender, lungs clear, normal breath sounds, no respiratory distress Cardiovascular: regular rate, rhythm Abdomen: normal bowel sounds, non tender, soft, + pertinent finding (ileostomy bag ) Extremities: non-tender, no pedal edema Neurologic/Psychiatric: alert, normal mood/affect, oriented x 3 Laboratory Results 04/29/17 06:29 Red Blood Count 3.59, Mean Corpuscular Volume 91.4, Mean Corpuscular Hemoglobin 29.5, Mean Corpuscular Hemoglobin Concent 32.3, Neutrophils (%) (Auto) 68.9, Lymphocytes (%) (Auto) 21.0, Monocytes (%) (Auto) 7.4, Eosinophils (%) (Auto) 1.9, Basophils (%) (Auto) 0.4, Neutrophils # (Auto) 1.77, Lymphocytes # (Auto) 0.54, Monocytes # (Auto) 0.19, Eosinophils # (Auto) 0.05, Basophils # (Auto) 0.01 04/29/17 06:29 Test 04/29/17 06:29 White Blood Count 2.57 K/uL (4.8-10.8) Red Blood Count 3.59 M/uL (4.7-6.1) Hemoglobin 10.6 g/dL (14.0-18.0) Hematocrit 32.8 % (42-52) Mean Corpuscular Volume 91.4 fL (80-100) Mean Corpuscular Hemoglobin 29.5 pg (25-34) Mean Corpuscular Hemoglobin Concent 32.3 g/dl (32-36) Platelet Count 69 K/uL (130-400) Neutrophils (%) (Auto) 68.9 % Lymphocytes (%) (Auto) 21.0 % Monocytes (%) (Auto) 7.4 % Eosinophils (%) (Auto) 1.9 % Basophils (%) (Auto) 0.4 % Neutrophils # (Auto) 1.77 K/uL (1.4-6.5) Lymphocytes # (Auto) 0.54 K/uL (1.2-3.4) Monocytes # (Auto) 0.19 K/uL (0.11-0.59) Eosinophils # (Auto) 0.05 K/uL (0-0.5) Basophils # (Auto) 0.01 K/uL (0-0.2) RDW Standard Deviation 67.8 fL (36.4-46.3) RDW Coefficient of Variation 20.2 % (11.5-14.5) Immature Granulocyte % (Auto) 0.4 % Immature Granulocyte # (Auto) 0.01 K/uL (0.00-0.02) Platelet Estimate DECREASED Anisocytosis PRESENT Tear Drop Cells 1+ Prothrombin Time 11.0 SECONDS (9.0-12.0) Prothromb Time International Ratio 1.0 (0.9-1.1) Activated Partial Thromboplast Time 24.7 SECONDS (21.0-31.0) Partial Thromboplastin Ratio 1.0 Anion Gap 7.0 mmol/L (3-11) Est Creatinine Clear Calc Drug Dose 63.1 ml/min Estimated GFR () 87.9 Estimated GFR (Non- 75.8 BUN/Creatinine Ratio 7.4 (10-20) Calcium Level 8.1 mg/dl (8.5-10.1) Phosphorus Level 2.1 mg/dl (2.5-4.9) Magnesium Level 2.0 mg/dl (1.8-2.4) Total Bilirubin 1.3 mg/dl (0.2-1) Direct Bilirubin 1.0 mg/dl (0-0.2) Aspartate Amino Transf (AST/SGOT) 118 U/L (15-37) Alanine Aminotransferase (ALT/SGPT) 123 U/L (12-78) Alkaline Phosphatase 147 U/L (45-117) Total Protein 5.7 gm/dl (6.4-8.2) Albumin 2.5 gm/dl (3.4-5.0) Lipase 219 U/L (73-393) Assessment and Plan 77-year-old male with a past medical history of ulcerative colitis status post ileostomy , primary sclerosing cholangitis , coronary artery disease status post stents presented to the ED after he had an unresponsive episode while watching football game 2 days ago. Per EMS he was found to have episodes of apnea and combativeness. He usually manages PSC flares with Cipro 500 mg twice daily and gets ERCP at [facility] every 3 months. He is scheduled to get an ERCP in couple weeks. AMS: Now resolved - Stroke versus seizure versus encephalopathy - Head CT and brain MRI negative for stroke, EEG negative for seizure pathology - Appreciate neurology recommendations - Ammonia level within normal limits -Orthostatic vitals Pain control with Tylenol 650mg PO Q6H PRN + Oxicodone PO 5mg Q6H PRN for pain. + Dilaudid IV 0.5mg Q4H PRN for pain. Primary sclerosing cholangitis: - LFTs elevated , AST 104, ALT 110, alkaline phosphatase 152 - Total bili at 1.3 decreased from 1.6 yesterday - The patient's family insists that they would like the ERCP done at [facility] where they've been going for the last 40 years and wanted to get in touch with their doctor to see if he could be rescheduled sooner - Vancomycin has been discontinued. Zosyn switched to Cipro 500 mg twice a day - Continue Protonix 40 mg, ursodiol Pancytopenia: WBC at 2.57, platelets of 68 Likely secondary to Zosyn - Continue to monitor Coronary artery disease status post stents in 2001 - Continue aspirin 81 mg, metoprolol 75 mg in a.m. 100 mg p.m., continue Crestor BPH: - Continue finasteride and alfuzosin Gout: -Continue allopurinol daily Hyperglycemia: Improving - initial blood sugars were> 200 - Hemoglobin A1c 7.1 in February 2017 DVT prophylaxis: SCDs Full code Disposition: In telemetry. Contacted Dr. Mcclellan's office at [facility] about scheduling ERCP sooner. They're willing to work with the patient to schedule the ERCP next week. Resident Tracking Resident Involvement: Resident Care Provided Care Provided: Adult Hospital Medicine
[2017-04-29] MEDS ORDERED: PIPERACILL/TAZOBAC IV 3.375 GM in DEXTROSE 5% 100ML 100 ML IV SCH (16:00)
[2017-04-29] MEDS: CIPROFLOXACIN 500 MG TAB PO SCH (21:06)
[2017-04-29] MEDS: FINASTERIDE 5 MG TAB PO SCH (21:07)
[2017-04-29] MEDS: ALFUZosin TAB 10 MG TAB PO SCH (21:07)
[2017-04-29] MEDS: ROSUVASTATIN CALCIUM 20 MG TAB PO SCH (21:08)
[2017-04-30 07:21] VITALS: BP 143/62; PULSE 55; TEMP 36.6; O2SAT 93
[2017-04-30] MEDS ORDERED: PANTOprazole SOD 40 MG TAB PO SCH (08:00)
[2017-04-30 08:11] LABS: PROTHROMBIN TIME (PATIENT) 10.7 SECONDS (9.0-12.0)
[2017-04-30] MEDS: URSODIOL 300 MG CAP PO SCH (08:15)
[2017-04-30] MEDS: MAGNESIUM OXIDE 400 MG TAB PO SCH (08:15)
[2017-04-30] MEDS: DICLOFENAC SOD EC 75 MG TABCR PO SCH (08:15)
[2017-04-30] MEDS: METOPROLOL TARTRATE 50 MG TAB PO SCH (08:15)
[2017-04-30] MEDS: ALLOPURINOL 300 MG TAB PO SCH (08:15)
[2017-04-30] MEDS: OMEGA-3 (PURIFIED FISH OIL) 1 GM CAP PO SCH (08:15)
[2017-04-30] MEDS: CALCIUM 600MG + VIT D 400 IU TAB PO SCH (08:15)
[2017-04-30] MEDS: MISOPROSTOL 200 MCG TAB PO SCH (08:16)
[2017-04-30] MEDS: CIPROFLOXACIN 500 MG TAB PO SCH (08:16)
[2017-04-30 08:23] LABS: MEAN CELL VOLUME 91.3 fL (80-100); MEAN CORPUSCULAR HEMOGLOBIN 31.3 pg (25-34); MEAN CORPUSCULAR HGB CONC 34.2 g/dl (32-36); MEAN PLATELET VOLUME 11.5 fL (7.4-10.4); PLATELET COUNT 75 K/uL (130-400); RED BLOOD COUNT 4.16 M/uL (4.7-6.1); WHITE BLOOD COUNT 3.22 K/uL (4.8-10.8)
[2017-04-30 08:29] LABS: BASO % 0.3 %; BASO ABS # 0.01 K/uL (0-0.2); COMPLETE YES; EOS % 3.4 %; HYPERSEGMENTED POLYS 1+; IG% 0.3 %; LYMPH % 23.3 %; LYMPH ABS # 0.75 K/uL (1.2-3.4); MONO % 6.5 %; NEUT % 66.2 %; PLT ESTIMATE DECREASED; TEAR DROP CELLS 1+
[2017-04-30 08:35] LABS: BUN/CREATININE RATIO 10.5 (10-20); CALCIUM 8.8 mg/dl (8.5-10.1); CREATININE 0.97 mg/dl (0.60-1.40)
[2017-04-30 08:41] LABS: PHOSPHORUS 2.9 mg/dl (2.5-4.9)
--- NOTE | 2017-04-30 12:47 | DIAGNOSTIC IMAGING REPORT ---
RIBS UNILATERAL WITH PA CHEST CLINICAL HISTORY: h/o fall. Tenderness on left trauma. Pain. COMPARISON STUDY: 04/27/2017 FINDINGS: nondisplaced fractures of the left sixth through 10th ribs. Left basilar atelectasis. No evidence pneumothorax. IMPRESSION: 1. Nondisplaced fractures left sixth through 10th ribs. 2. Atelectasis left base. 3. No evidence for pneumothorax. The above report was generated using voice recognition software. It may contain grammatical, syntax or spelling errors. Electronically signed by: Guillermo Allan M.D. 04/30/2017 12:45 PM Dictated Date/Time: 04/30/2017 12:34 PM
--- NOTE | 2017-04-30 14:59 | Discharge Instructions ---
Discharge Instructions Date of Service Apr 30, 2017. Admission Reason for Admission: Primary Sclerosing Cholangitis, Sepsis Discharge Discharge Diagnosis / Problem: Syncopal episode, primary sclerosing cholangitis Discharge Goals Goal(s): Decrease discomfort, Improve function Activity Recommendations Activity Limitations: resume your previous activity . Instructions / Follow-Up Instructions / Follow-Up You were admitted after you had passed out while watching a football game on Friday and had an extensive work up for stroke and seizure including a head CT and brain MRI and an EEG. An ammonia level was checked for encephalopathy considering your history of liver disease but was found to be within normal limits. You were treated with vancomycin and Zosyn for possible flare of your primary sclerosing cholangitis and were also seen by gastroenterology. Syncopal episode: - Head CT, brain MRI were negative for stroke. EEG was negative for seizure. - Ammonia level was normal - You were monitored on the telemetry floor with no significant rhythm changes - Please follow-up with your PCP for an outpatient Cardiac monitoring for any rhythm disturbances Primary sclerosing cholangitis: - Your liver enzymes were elevated when you first arrived and they've been stable since. Your bilirubin level was initially elevated but has now decreased to 1.3. - We had contacted Dr. Mcclellan at [facility] who is trying to schedule your ERCP in the next week. - Continue to use Cipro 500 mg twice daily until you see him - Continue Protonix 40 mg, ursodiol Acute rib fractures: - Rib x-rays confirmed the presence of nondisplaced fractures from sixth to 10th ribs on the left side. - Please use lidocaine patch, diclofenac , heat for pain relief - Please use an incentive spirometer for your lungs. Coronary artery disease - Continue aspirin 81 mg, metoprolol 75 mg in a.m. 100 mg in p.m., continue Crestor BPH: - Continue finasteride and alfuzosin Gout: -Continue allopurinol daily Please follow up with your primary care physician in about a week. Please follow up with as scheduled. Current Hospital Diet Patient's current hospital diet: AHA Diet (Heart Healthy) Discharge Diet Recommended Diet: AHA Diet (Heart Healthy) Pending Studies Studies pending at discharge: no Laboratory Results Hemoglobin A1c Test 02/12/17 14:53 Range/Units Estimated Average Glucose 157 mg/dl Hemoglobin A1c 7.1 H 4.5-5.6 % Medical Emergencies . Who to Call and When: Medical Emergencies: If at any time you feel your situation is an emergency, please call 911 immediately. . Non-Emergent Contact Non-Emergency issues call your: Primary Care Provider Call Non-Emergent contact if: your pain is not controlled . . "Provider Documentation" section prepared by Margarita Brizuela. . VTE Core Measure Inpt VTE Proph given/why not?: SCD's Resident Tracking Resident Involvement: Resident Care Provided Care Provided: Adult Hospital Medicine
[2017-04-30 15:27] VITALS: BP_SYST 155; BP_SYST 160; BP_SYST 161; BP_DIAS 74; BP_DIAS 76; BP_DIAS 83; PULSE 55; PULSE 60; TEMP 36.6; O2SAT 95
[2017-04-30] MEDS ORDERED: NF656 TD (15:38)
--- NOTE | 2017-04-30 15:38 | Discharge Summary ---
Discharge Summary Date of Service Apr 30, 2017. Discharge Summary Admission Date: Apr 27, 2017 at 01:58 Discharge Date: Apr 30, 2017 Principal Diagnosis: syncopal episode Problems/Secondary Diagnoses: Fall , Primary sclerosing cholangitis, rib fractures Immunizations: Have You Had Influenza Vaccine: No History of Tetanus Vaccine?: No Tetanus Immunization Date: Sep 22, 2004 History of Pneumococcal: Yes History of Hepatitis B Vaccine: Yes Hepatitis Immunization Date: Sep 22, 1996 Consultations: Gastroenterology, neurology Medication Reconciliation New Medications: Lidocaine (Lidoderm Patch 5%) 1 Ea Tdsy 1 EA TD DAILY for 7 Days Continued Medications: Alendronate Sodium (Fosamax) 70 Mg Tab 70 MG PO WK, TAB TAKE THIS MEDICATION EVERY FRIDAY Alfuzosin Hcl (Uroxatral) 10 Mg Tab 10 MG PO HS Allopurinol (Zyloprim) 300 Mg Tab 300 MG PO QAM, TAB Aspirin (Aspirin Chewable) 81 Mg Chew 81 MG PO DAILY TAKES DAILY WITH LUNCH Aspirin (Aspirin) 325 Mg Tab 325 MG PO UD PRN for Migraine Calcium Carbonate-Vitamin D W/ (Caltrate 600 Plus) 1 Tab Tab 1 TAB PO QAM, TAB TAKES DAILY AT 1200 Ciprofloxacin (Ciprofloxacin HCl) 500 Mg Tab 500 MG PO BID PRN for PSC NEEDED WITH PSC ATTACK Diclofenac (Voltaren) 75 Mg Tabcr 75 MG PO QAM WITH FOOD Ergocalciferol (Vitamin D2) 2,000 Unit Tab 1.25 MG PO WK Finasteride (Proscar) 5 Mg Tab 5 MG PO QPM, TAB DAILY AT DINNER Fish Oil ([place]-3) 1 Ea Cap 1200 MG PO QAM, CAP Folic Acid (Folvite) 1 Mg Tab 1 MG PO QPM, TAB DAILY WITH DINNER Loratadine (Claritin) 10 Mg Cap 10 MG PO QAM PRN for Seasonal Allergies Magnesium Oxide (Mag-Ox) 400 Mg Tab 400 MG PO QAM, TAB Meclizine Hcl (Meclizine Hcl) 25 Mg Tab 25 MG PO TID PRN for Dizziness or Vertigo, TAB Methylcobalamin (H42-Yaggsh) 1 Mg Chw 1000 MCG PO MONTHLY Metoprolol Tartrate (Lopressor) (Lopressor) 50 Mg Tab 75 MG PO QAM, 3 Refills Metoprolol Tartrate (Lopressor) (Lopressor) 50 Mg Tab 100 MG PO HS Metronidazole (Flagyl) 500 Mg Tab 500 MG PO daily at lunch Misoprostol (Cytotec) 200 Mcg Tab 200 MCG PO QAM, TAB [place]-3 Fatty Acids-Cholecalci (Dry Eye [place] Benefits/Vi) 1 Cap Cap 4 CAP PO QAM Omeprazole (Prilosec) 20 Mg Capcr 20 MG PO QAM Ondasetron Odt (Zofran Odt) 4 Mg Tab 4 MG SL Q6H PRN for Nausea, #10 TAB Rosuvastatin Calcium (Crestor) 20 Mg Tab 20 MG PO HS, TAB Soft Lens Products (B & L Sensitive Eyes Plus) 1 Yoselyn Yoselyn 1 DROP OP AMPM Ursodiol (Actigall) 300 Mg Cap 300 MG PO AMPM Discharge Exam Complains of tenderness along the left lateral aspect of his chest .No acute events overnight. Denies shortness of breath, chest pain, abdominal pain, vomiting, nausea Review of Systems: Constitutional: No fever, No chills Eyes: No worsening of vision ENT: No hearing loss Respiratory: No cough, No sputum Abdomen: No pain, No nausea Musculoskeletal: No joint pain Genitourinary - Male: No hematuria Neurologic: No memory loss, No paralysis Psychiatric: No depression symptoms Endocrine: No fatigue Hematologic / Lymphatic: No abnormal bleeding/bruising Physical Exam: General Appearance: WD/WN, no apparent distress Eyes: normal inspection ENT: hearing grossly normal Neck: supple Respiratory/Chest: lungs clear, normal breath sounds, + pertinent finding ( tenderness along the lateral aspect of left-side of chest) Cardiovascular: regular rate, rhythm Abdomen / GI: normal bowel sounds, non tender, soft Extremities: no pedal edema Neurologic/Psychiatric: alert, normal mood/affect, oriented x 3 Skin: normal color Hospital Course 77-year-old male with a past medical history of ulcerative colitis status post ileostomy , primary sclerosing cholangitis , coronary artery disease status post stents presented to the ED after he had an unresponsive episode while watching football game on 04/26. Per EMS he was found to have episodes of apnea and combativeness. He usually manages PSC flares with Cipro 500 mg twice daily and gets ERCP at [facility] every 3 months. He is scheduled to get an ERCP in couple weeks. He was initially evaluated for fall and a syncopal episode and had a total stroke consult for stroke. Head CT, brain MRI were negative. Neurology was consulted and EEG for seizure disorder was also negative. He was monitored on telemetry for any rhythm disturbances. Recommend outpatient cardiac monitoring for evaluation of syncope. He was treated with vancomycin and Zosyn for a possible sepsis due to primary sclerosing cholangitis flare. His blood cultures however were negative and subsequently his antibiotics were discontinued and he was discharged with ciprofloxacin 500 mg twice a day. gastroenterology was consulted for PSC flare and had recommended an ERCP. He usually gets ERCP at [facility] every 3 months and was scheduled to get one couple weeks. He however declined ERCP at this facility and wanted to go back to [facility]. His doctor was contacted and ERCP at a sooner date has been arranged. He will continue on Cipro 500 mg twice a day until his appointment. Nocturnal pulse ox was negative and so were orthostatic vitals. He also complained about soreness along the lateral aspect of his chest on the left side. X-rays revealed nondisplaced rib fractures from 6-10th ribs. Recommended to use lidocaine patch, external application of heat, diclofenac for pain relief. He was also given an incentive spirometer at discharge. Recommend follow-up with PCP in about a week and with gastroenterology at [place] as scheduled Total Time Spent: Greater than 30 minutes This includes examination of the patient, discharge planning, medication reconciliation, and communication with other providers. Discharge Instructions Please refer to the electronic Patient Visit Report (Discharge Instructions) for additional information. Follow-Up Gastroenterology at [place] as scheduled. PCP in about a week Additional Copies To Tom Bucio M.D. Resident Tracking Resident Involvement: Resident Care Provided Care Provided: [facility]
[2017-04-30 16:17] VITALS: BP 161/76; PULSE 60; TEMP 36.6; O2SAT 95
[2017-05-01] MEDS ORDERED: LIDODERM (LIDOCAINE) PATCH 5% TD SCH (08:00)
--- NOTE | 2017-05-01 11:51 | EDITING REQUIRED CODING QUERY ---
CODING QUERY To promote full compliance with coding requirements relating to patient care, provider participation is requested in all cases of chief accounting officer uncertainty. Please assist us with the question(s) below: Coding Question(s): Please clarify below, in your clinical opinion, regarding the possible sepsis due to primary sclerosing cholangitis flare. The discharge summary documents that he was treated with vancomycin and zosyn for a possible sepsis due to primary sclerosing cholangitis flare, and also documents that his blood cultures however were negative and subsequently his antibiotics were discontinued and he was discharged with ciprofloxacin. (x ) the patient was treated for possible Sepsis initially ( ) there was no possible Sepsis and it was ruled out Physician's Response(s): Thank you Nancy Aguayo Principal Diagnosis: "_that condition established after study, to be chiefly responsible for occasioning the admission of the patient to the hospital for care." Co-Existing Principal Diagnosis: "_when two or more diagnoses equally meet the criteria for principal diagnosis as determined by the circumstances of admission, diagnostic work up, and/or therapy provided, and the Alphabetic Index, Tabular List, or another coding guideline does not provide sequencing direction, any one of the diagnoses may be sequenced first." "When the physician has documented what appears to be a current diagnosis in the body of the record, but has not included the diagnosis in the final diagnostic statement, the physician should be asked whether the diagnosis should be added." (Source Coding Clinic 2 QTR90. p3-4)
== END 2017-04-30 17:02 | disposition home or self-care (01) | DRG 871 ==
LOC: EDBD 23:42 → C.EDA 23:43 → UNDOADMIN 04-27 01:58 → C.MSICU 04-27 01:58 → ENRESERV 04-27 02:01 → C.MSICU 04-27 16:34 → C.2E 04-27 16:34 → ENRESERV 04-29 15:28 → C.MS4W 04-29 16:22
PROVIDERS: ADMIT Student in an Organized Health Care Education/Training Program; ATTEND Hospitalist
DX: A41.9 Sepsis, unspecified organism (principal); K83.0 Cholangitis; D61.811 Other drug-induced pancytopenia; T36.0X5A Adverse effect of penicillins, initial encounter; G93.40 Encephalopathy, unspecified; S22.42XA Multiple fractures of ribs, left side, initial encounter for closed fracture; R55 Syncope and collapse; E87.6 Hypokalemia; I25.10 Atherosclerotic heart disease of native coronary artery without angina pectoris; E78.5 Hyperlipidemia, unspecified; I11.9 Hypertensive heart disease without heart failure; N40.0 Benign prostatic hyperplasia without lower urinary tract symptoms; Z79.899 Other long term (current) drug therapy; Z79.82 Long term (current) use of aspirin; Z91.81 History of falling; Z86.718 Personal history of other venous thrombosis and embolism; Z93.2 Ileostomy status; Z95.1 Presence of aortocoronary bypass graft; W18.39XA Other fall on same level, initial encounter; Y92.009 Unspecified place in unspecified non-institutional (private) residence as the place of occurrence of the external cause; Y99.8 Other external cause status

== ENCOUNTER → 2017-05-22 | Outpatient (CLI) | payer OTHER, MEDICARE ==
[~2017-05-22] MED LIST changes: +ALFU10TA2 PO; -ALFU10TA30 PO; +ASPI325T45 PO; -LIFI5DRO OPB; -LVQ750 PO; +METR-163 PO; -MTR500 PO; +NF656 TD; +SOFTSOL OP
--- NOTE | 2017-05-22 16:25 | DIAGNOSTIC IMAGING REPORT ---
CHEST 2 VIEWS ROUTINE HISTORY: 77 years-old Male FRACTURE OF FOUR RIBS acute atypical chest pain with fracture of several left-sided ribs COMPARISON: Radiographs 04/30/2017 TECHNIQUE: PA and lateral views of the chest FINDINGS: The previously noted nondisplaced left-sided rib fractures are not clearly seen on this study. Coronary arterial stent graft is noted. No displaced rib fractures identified. There is no pneumothorax. Mild cardiomegaly redemonstrated. Linear subsegmental bibasilar opacities are unchanged suggesting areas of atelectasis and/or scarring. No lobar airspace consolidations. There is atherosclerosis of the aorta. No overt pulmonary edema. Right shoulder arthroplasty noted. Degenerative changes involve the left shoulder and spine. Mild thoracic dextroscoliosis. IMPRESSION: 1. No acute cardiopulmonary process. 2. Previously described multiple left-sided rib fractures are not clearly seen on this study. No acute displaced rib fracture or pneumothorax identified. The above report was generated using voice recognition software. It may contain grammatical, syntax or spelling errors. Electronically signed by: Joel Gee M.D. 05/22/2017 4:24 PM Dictated Date/Time: 05/22/2017 4:21 PM
== END | disposition home or self-care (01) ==
LOC: C.RAD 15:49
PROVIDERS: ATTEND Family Medicine
DX: S22.42XA Multiple fractures of ribs, left side, initial encounter for closed fracture (principal); X58.XXXA Exposure to other specified factors, initial encounter

== ENCOUNTER → 2017-11-25 | Day surgery (SDC) | payer OTHER, MEDICARE ==
[~2017-11-25] MED LIST changes: +ASPECOTC PO; -ASPI325T45 PO; -FOLI1TAB7 PO; +FOLI1TAB8 PO; -ONDA4TAB10 SL
== END | disposition home or self-care (01) ==
LOC: C.ACU 13:47
PROVIDERS: ATTEND Internal Medicine Gastroenterology
DX: Z43.9 Encounter for attention to unspecified artificial opening (principal)

== ENCOUNTER 2018-10-05 09:09 | Observation (INO) ==
--- NOTE | 2018-09-29 15:49 | PAT Medication Instructions ---
Medication Instructions Date of Service September 29, 2018 Home Medications alendronate 70 mg PO WK alfuzosin 10 mg PO HS allopurinol 300 mg PO QAM aspirin 325 mg PO DAILY PRN aspirin [Aspirin Low Dose] 81 mg PO QDL calcium carbonate-vitamin D3 1 tab PO QDL ciprofloxacin HCl 500 mg PO UD PRN diclofenac sodium 75 mg PO QAM finasteride 5 mg PO QPM fish,bora,flax oils-om3,6,9no1 1 cap PO QAM folic acid 1 mg PO QPM loratadine [Claritin] 10 mg PO QAM magnesium oxide 400 mg PO QAM meclizine 25 mg PO DAILY PRN metoprolol tartrate 75 mg PO QDL metoprolol tartrate 100 mg PO HS misoprostol 200 mcg PO QAM [id number]-epa-fish oil-D3 [Dry 4 cap PO QAM omeprazole 20 mg PO QAM rosuvastatin 10 mg PO HS [id number] 1 drp OPHTHALMIC (EYE) TID tramadol 50 mg PO QID PRN ursodiol 300 mg PO BID Continue as directed aspirin [Aspirin Low Dose] 81 mg PO QDL ciprofloxacin HCl 500 mg PO UD PRN ASK your prescriber and surgeon aspirin 325 mg PO DAILY PRN diclofenac sodium 75 mg PO QAM STOP taking 2 weeks before surgery omega fish,bora,flax oils-om3,6,9no1 1 cap PO QAM [id number]-fish oil-D3 [Dry 4 cap PO QAM STOP taking 48 hours before surgery ursodiol 300 mg PO BID DO NOT take the morning of surgery calcium carbonate-vitamin D3 1 tab PO QDL loratadine [Claritin] 10 mg PO QAM magnesium oxide 400 mg PO QAM Take morning of surgery With a small sip of water, OTHERWISE NOTHING TO EAT OR DRINK AFTER MIDNIGHT: allopurinol 300 mg PO QAM aspirin [Aspirin Low Dose] 81 mg PO QDL meclizine 25 mg PO DAILY PRN (if needed) metoprolol tartrate 75 mg PO QDL misoprostol 200 mcg PO QAM omeprazole 20 mg PO QAM [id number] 1 drp OPHTHALMIC (EYE) TID tramadol 50 mg PO QID PRN (okay to take up to 4 hours prior to surgery if needed) Take evening before surgery alfuzosin 10 mg PO HS finasteride 5 mg PO QPM folic acid 1 mg PO QPM meclizine 25 mg PO DAILY PRN (if needed) metoprolol tartrate 100 mg PO HS rosuvastatin 10 mg PO HS [id number] 1 drp OPHTHALMIC (EYE) TID tramadol 50 mg PO QID PRN (if needed) Other Notes If you have any questions please call us at [phone] or [phone] or [phone] or [phone]
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
--- NOTE | 2018-09-30 09:31 | XRay Report ---
XR chest Pre-admission PA/Lat CLINICAL HISTORY: Preoperative evaluation. COMPARISON STUDY: Chest radiograph April 30, 2017. FINDINGS: Right shoulder arthroplasty is incidentally noted. Linear left basilar opacity suggest atel ectasis. There is no consolidation or evidence for pulmonary edema. Moderate cardiomegaly is unchange d. IMPRESSION: 1. No acute cardiopulmonary findings. 2. Moderate cardiomegaly. 3. Linear left basilar opacity suggestive of atelectasis. Electronically signed by: Edgardo Griggs M.D. 09/30/2018 9:29 AM
[2018-09-30 10:42] LABS: INR 1.2 (0.9-1.1); Partial Thromboplastin Ratio 0.9; Partial Thromboplastin Time 25.4 Seconds (21.0-31.0)
[2018-09-30 10:44] LABS: BUN Creatinine Ratio 18.8 (10-20); Calcium 8.7 mg/dl (8.5-10.1); Est GFR (African American) 96.3; Est GFR (Non-African American) 83.1
[2018-09-30 11:00] LABS: Basophils # (auto) 0.02 K/uL (0-0.2); Basophils % (auto) 0.5 %; Eosinophils # (auto) 0.18 K/uL (0-0.5); Eosinophils % (auto) 4.3 %; Hematocrit (blood only) 40.8 % (42-52); Immature Granulocytes # (auto) 0.01 K/uL (0.00-0.02); Immature Granulocytes % (auto) 0.2 %; Lymphocytes # (auto) 0.98 K/uL (1.2-3.4); Lymphocytes % (auto) 23.3 %; Mean Corpuscular Hgb Conc 34.3 g/dL (32-36); Mean Corpuscular Volume 103.6 fL (80-100); Monocytes # (auto) 0.53 K/uL (0.11-0.59); Monocytes % (auto) 12.6 %; Neutrophils # (auto) 2.49 K/uL (1.4-6.5); Neutrophils % (auto) 59.1 %; Platelet Count 69 K/uL (130-400); Platelet Estimate Decreased (Normal); RDW Coefficient of Variation 13.9 % (11.5-14.5); RDW Standard Deviation 52.3 fL (36.4-46.3); Red Blood Count 3.94 M/uL (4.7-6.1); White Blood Count 4.21 K/uL (4.8-10.8)
--- NOTE | 2018-10-02 09:58 | History and Physical Report ---
DATE OF ADMISSION: 10/05/2018 CHIEF COMPLAINT: Back and lower extremity difficulty, progressive weakness, progressive neurological deficits. HISTORY OF PRESENT ILLNESS: Jordy is a delightful, he is 78, progressive neurological deficit, severe stenosis of the spine. He is scheduled for elective surgery coming up in 72 hours. PAST MEDICAL HISTORY: Positive for heart disease, rheumatoid arthritis, lupus, blood clots, liver pathology. PAST SURGICAL HISTORY: Listed on his inquiry. ALLERGIES: NARCOTICS, PAIN MEDS, ANESTHESIA. SOCIAL HISTORY: He is . Minimal alcohol. No smoking. Active lifestyle, 4 grown children. REVIEW OF SYSTEMS: He has no fevers, sweats, chills. Ear, nose and throat negative. Denies any chest pain, palpitations. Does have some swelling in hands, feet. No asthma, wheezing. No nausea, vomiting. No urgency, frequency. He has positive joint pain, stiffness, weak, and progressive neurological deficits. MEDICATIONS: [place], allopurinol, diclofenac, Caltrate, metoprolol, aspirin, folic acid, Cipro, Claritin. OBJECTIVE: GENERAL: He is alert, oriented. He is 5 feet 9 inches, 170. He is in distress. He has difficulty with walking. He has progressive deficit. He walks with a limp. VITAL SIGNS: Blood pressure 130/80, pulse 80, 5 feet 9 inches, 170. CARDIAC: Normal S1, S2. No S3. LUNGS: Clear to auscultation. No rales, rhonchi, wheezing. ABDOMEN: Soft, nontender, bowel sounds present. MUSCULOSKELETAL: He has neurological deficits with extremity weakness on dorsiflexion, plantarflexion, unsteadiness of gait. No upper motor neuron pathology. IMAGES: Demonstrate severe spinal stenosis. ASSESSMENT: Severe spinal stenosis, lumbar spine. PLAN: Includes laminectomy and fusion, L4-L5, lumbar spine.
[~2018-10-05 09:09] MED LIST changes: +ACETAMINOPHEN 1,000 MG/100 ML VIAL IV ONE; -ALEN70TA4 PO; -ALFU10TA2 PO; -ALLO300T2 PO; -ASPCH81X PO; -ASPECOTC PO; -CALCTAB7 PO; +CEFAZOLIN 2000MG 2,000 MG/15 ML SYR IV SCH; -CPR/500 PO; -DICL-201 PO; -ERGO1TAB12 PO; -FINA5TAB PO; -FOLI1TAB8 PO; -LORA10CA2 PO; +LR 15ML/HR IV SCH; -MAGN400T6 PO; -MECL1TAB42 PO; -METH1CHW PO; -METO50TA16 PO; -METR-163 PO; -MISO200T PO; -NF656 TD; -OMEG-10 PO; -OMEG10007 PO; -PRLSR20 PO; -ROSU20TA PO; +SODIUM CHLORIDE 0.9% 1,000 ML IV SCH; -SOFTSOL OP; -URSO300C4 PO
[2018-10-05] MEDS ORDERED: fentaNYL citrate 100 MCG/2 ML VIAL IV PRN (10:05)
[2018-10-05] MEDS ORDERED: ePHEDrine sulfate 50 MG/ML AMP IV PRN (10:05)
[2018-10-05] MEDS ORDERED: ATROPINE SULFATE 0.1 MG/ML 10ML SYR IV PRN (10:05)
[2018-10-05] MEDS ORDERED: PHENYLEPHRINE 100MCG/ML 5ML SYR IV PRN (10:05)
[2018-10-05] MEDS ORDERED: ONDANSETRON INJ 2 MG/ML 2 ML VIAL IV PRN ×2 (10:05→15:18)
[2018-10-05 10:07] LABS: Hematocrit (blood only) 44.6 % (42-52); Hemoglobin 15.6 g/dL (14.0-18.0); Mean Corpuscular Volume 102.5 fL (80-100); Mean Platelet Volume 12.3 fL (7.4-10.4); Platelet Count 84 K/uL (130-400); RDW Coefficient of Variation 13.6 % (11.5-14.5); Red Blood Count 4.35 M/uL (4.7-6.1); White Blood Count 6.77 K/uL (4.8-10.8)
[2018-10-05] MEDS ORDERED: ACETAMINOPHEN 1000 MG/100 ML IV IV ONE (10:12)
[2018-10-05] MEDS ORDERED: LIDOCAINE HCL 2% 2 ML VIAL/AMP(20MG/ML) INFIL ONE (11:05)
[2018-10-05] MEDS ORDERED: PROPOFOL IV EMULSION 10 MG/ML 20 ML VIAL IV ONE (11:05)
[2018-10-05] MEDS ORDERED: ONDANSETRON INJ 2 MG/ML 2 ML VIAL ONE (11:05)
[2018-10-05] MEDS ORDERED: ROCURONIUM BROMIDE 10 MG/ML 5 ML VIAL ONE (11:05)
[2018-10-05] MEDS ORDERED: fentaNYL citrate 100 MCG/2 ML VIAL ONE ×2 (11:05→12:53)
[2018-10-05] MEDS ORDERED: BUPIVACAINE/EPINEPHRINE 0.5% MPF 1:200,000 30 ML VIAL ONE (11:11)
[2018-10-05] MEDS ORDERED: THROMBIN FOR SOLN 20000 UNIT KIT ONE (11:11)
[2018-10-05] MEDS ORDERED: GELATIN SPONGE SZ 100 ONE (11:12)
[2018-10-05] MEDS ORDERED: BACITRACIN INJ 50,000 UNIT VIAL ONE (11:12)
[2018-10-05] MEDS ORDERED: VANCOMYCIN HCL 1000MG/20ML VIAL ONE (11:13)
--- NOTE | 2018-10-05 11:23 | History & Physical Bridge Note ---
Date of Service October 05, 2018 History & Physical Bridge Note I have examined the patient, reviewed the History & Physical and in the interval since the performance of the History & Physical I have noted the following changes of clinical significance: no changes noted
[2018-10-05] MEDS ORDERED: FLOSEAL HEMOSTATIC MATRIX 10ML TOP ONE (12:45)
[2018-10-05] MEDS ORDERED: NEOSTIGMINE METHYLSULFATE 5 MG/5 ML SYR ONE (12:53)
[2018-10-05] MEDS ORDERED: GLYCOPYRROLATE 0.2 MG/ML VIAL ONE (12:53)
--- NOTE | 2018-10-05 13:03 | Post Operative Brief Note ---
Immediate Post Op Note v1 Date of Surgery October 05, 2018 Pre & Post Diagnosis Operation Date: 10/05/18 11:10 Pre-Op Diagnosis: Spinal Stenosis Post-Op Diagnosis: Spinal Stenosis Procedure Operation Date: 10/05/18 11:10 Actual Procedures p L4-L5 Laminectomy and Fusion(Not Applicable) - Jose Christensen DO Surgeon Jose Christensen DO Cupola Man 100 Estimated Blood Loss 100 Findings Consistent with Post-Op Diagnosis Drains Hemovac Drain
--- NOTE | 2018-10-05 13:26 | Operative Report ---
DATE OF OPERATION: 10/05/2018 PREOPERATIVE DIAGNOSES: Severe spinal stenosis, L3-L4, L4-L5, disc herniation, L3-L4, lumbar spine. POSTOPERATIVE DIAGNOSES: Severe spinal stenosis, L3-L4, L4-L5, disc herniation, L3-L4, lumbar spine. PROCEDURES: Include laminectomy L3-L4, L4-L5 lumbar spine, foraminotomy, partial facetectomy, decompression of all neural elements and discectomy L3-L4. SURGEON: Jose Christensen DO SURVEILLANCE INVESTIGATOR: Gil Marte PA-C. COMPLICATIONS: Zero. BLOOD LOSS: Approximately 100 mL. ANESTHETIC: General. DESCRIPTION OF PROCEDURE: The patient was taken to the operating room, a general intubated anesthetic provided to the patient, placed prone, all soft tissue protected including his colostomy site. We scrubbed, prepped and draped sterile. We made a skin incision, fascial incision, came down to the lamina elements at L5, L4 and L3 lumbar spine. We decompressed each of these laminas. Foraminotomy, partial facetectomy with essentially decompressed the S1, L5, L4, L3 nerve roots bilaterally. I took off most of ligamentum flavum, some bone as well. I was very pleased with the decompression. We did left side and right side bilateral. We irrigated, closed over vancomycin powder, Hemovac drain with 1 Vicryl suture, 2-0 in subcuticular layer, 3-0 nylon on the skin. Sterile dressings applied. The patient extubated to PACU stable. No apparent complications. I attest to the content of the Intraoperative Record and any orders documented therein. Any exception s are noted below.
--- NOTE | 2018-10-05 13:54 | Fluoroscopy Report ---
LUMBAR SPINE, INTRAOPERATIVE FLUOROSCOPY HISTORY: L4-L5 laminectomy and fusion. FLUOROSCOPY TIME: 2 seconds. FINDINGS: Intraoperative fluoroscopy was provided for the lumbar spine. Single fluoroscopic spot imag e demonstrates surgical instruments posterior to the L4 and L5 levels.. IMPRESSION: Fluoroscopy provided for a L4-5 laminectomy and fusion. Electronically signed by: Alexander Mcgee M.D. 10/05/2018 1:53 PM
--- NOTE | 2018-10-05 14:54 | Anesthesiology Progress Note ---
Date of Service October 05, 2018 Anesthesia Post Procedure Vital Signs Vital Signs: Temp Pulse Pulse Resp BP Pulse Ox 10/05/18 14:40 36.2 C L 60 15 154/78 H 95 10/05/18 14:30 60 17 150/79 H 97 10/05/18 14:20 60 16 160/83 H 96 10/05/18 14:10 59 L 15 155/74 H 99 10/05/18 14:00 57 L 12 152/73 H 99 10/05/18 13:50 53 L 12 157/75 H 100 10/05/18 13:40 62 17 171/87 H 100 10/05/18 13:30 83 18 182/92 H 97 10/05/18 13:20 78 15 152/105 H 95 10/05/18 13:12 36.5 C 70 16 161/91 H 95 10/05/18 09:49 36.4 C L 65 18 172/92 H 95 Pain Intensity Back: Pain Intensity: 6 Right Leg: Pain Intensity: 6 Notes Mental Status: alert / awake / arousable Patient Amnestic to Procedure: Yes Nausea / Vomiting: adequately controlled Pain: adequately controlled Airway Patency, RR, SpO2: stable & adequate BP & HR: stable & adequate Hydration State: stable & adequate Anesthetic Complications: no major complications apparent
[2018-10-05] MEDS ORDERED: MAGNESIUM HYDROXIDE SUSP 30 ML UDC PO PRN (15:18)
[2018-10-05] MEDS ORDERED: MECLIZINE HCL 25 MG TAB PO PRN (15:18)
[2018-10-05] MEDS ORDERED: ASPIRIN 325 MG ECTAB PO PRN (15:18)
[2018-10-05] MEDS ORDERED: SODIUM CHLORIDE 0.9% 1000ML 1,000 ML IV SCH (15:18)
[2018-10-05] MEDS ORDERED: CIPROFLOXACIN 500 MG TAB PO PRN (15:18)
[2018-10-05] MEDS: dexAMETHasone 6 MG in SYRINGE 0 ML IV SCH (16:54)
[2018-10-05] MEDS ORDERED: ACETAMINOPHEN 1,000 MG/100 ML VIAL IV PRN (18:00)
[2018-10-05] MEDS: CEFAZOLIN 2000MG 2,000 MG/15 ML SYR IV SCH (19:58)
[2018-10-05] MEDS: ROSUVASTATIN CALCIUM 10 MG TAB PO SCH (20:27)
[2018-10-05] MEDS: URSODIOL 300 MG CAP PO SCH (20:27)
[2018-10-05] MEDS: DOCUSATE SODIUM 100 MG CAP PO SCH ×2 (20:28→20:30)
[2018-10-05] MEDS: METOPROLOL TARTRATE 50 MG TAB PO SCH (20:28)
[2018-10-05] MEDS: ALFUZOSIN HCL 10 MG TAB PO SCH (20:28)
[2018-10-05] MEDS: FOLIC ACID 1 MG TAB PO SCH (20:28)
[2018-10-06] MEDS: dexAMETHasone 6 MG in SYRINGE 0 ML IV SCH ×2 (00:43→08:17)
[2018-10-06] MEDS: TRAMADOL HCL 50 MG TABLET PO PRN ×2 (04:00→20:40)
[2018-10-06] MEDS: CEFAZOLIN 2000MG 2,000 MG/15 ML SYR IV SCH ×2 (04:01→12:14)
--- NOTE | 2018-10-06 07:34 | Anesthesiology Progress Note ---
Date of Service October 06, 2018 Anesthesia Post Procedure Vital Signs Vital Signs: Temp Pulse Pulse Pulse Resp BP Pulse Ox 10/06/18 03:23 36.8 C 71 16 118/67 90 10/05/18 23:03 36.5 C 64 15 131/67 93 10/05/18 19:08 36.4 C L 82 18 148/83 H 91 10/05/18 18:41 92 10/05/18 17:32 36.3 C L 69 18 148/84 H 91 10/05/18 16:05 62 17 133/77 93 10/05/18 15:37 63 17 147/77 H 93 10/05/18 15:00 36.4 C L 63 16 163/81 H 94 10/05/18 14:40 36.2 C L 60 15 154/78 H 95 10/05/18 14:30 60 17 150/79 H 97 10/05/18 14:20 60 16 160/83 H 96 10/05/18 14:10 59 L 15 155/74 H 99 10/05/18 14:00 57 L 12 152/73 H 99 10/05/18 13:50 53 L 12 157/75 H 100 10/05/18 13:40 62 17 171/87 H 100 10/05/18 13:30 83 18 182/92 H 97 10/05/18 13:20 78 15 152/105 H 95 10/05/18 13:12 36.5 C 70 16 161/91 H 95 10/05/18 09:49 36.4 C L 65 18 172/92 H 95 Pain Intensity Back: Pain Intensity: 6 Right Leg: Pain Intensity: 6 Notes Mental Status: alert / awake / arousable Patient Amnestic to Procedure: Yes Nausea / Vomiting: adequately controlled Pain: adequately controlled Airway Patency, RR, SpO2: stable & adequate BP & HR: stable & adequate Hydration State: stable & adequate Anesthetic Complications: no major complications apparent and Pt Satisfied with anesthetic care
--- NOTE | 2018-10-06 08:13 | Progress Note ---
DATE: 10/06/2018 SUBJECTIVE: He is alert, oriented this morning, had some prostate issues overnight, difficulty voiding, some back pain, lower extremity difficulties. OBJECTIVE: VITAL SIGNS: Stable, including 36.6 temperature. EXTREMITIES: Moves all extremities. NEUROLOGIC: Alert, oriented. CHEST: No chest pain. IMPRESSION: Prostatic hypertrophy with urinary retention, status post lumbar spine surgery. PLAN: We will get a urology consult. Hold his discharge. He does have IV fluids and hopefully get him in improved over the next 24-48 hours. Anticipate discharge on him by Friday or of this week.
[2018-10-06] MEDS: URSODIOL 300 MG CAP PO SCH ×2 (08:17→20:00)
[2018-10-06] MEDS: LACTATED RINGER'S 1,000 ML IV SCH ×2 (08:17→19:56)
[2018-10-06] MEDS: DOCUSATE SODIUM 100 MG CAP PO SCH ×2 (08:18→20:00)
[2018-10-06] MEDS: LORATADINE 10 MG TAB PO SCH (08:18)
[2018-10-06] MEDS: MAGNESIUM OXIDE 400 MG TAB PO SCH (08:19)
[2018-10-06] MEDS: miSOPROStol 200 MCG TAB PO SCH (08:19)
[2018-10-06] MEDS: PANTOprazole 40 MG TAB PO SCH (08:20)
[2018-10-06] MEDS: FINASTERIDE 5 MG TAB PO SCH (08:20)
[2018-10-06] MEDS: ALLOPURINOL 300 MG TAB PO SCH (08:20)
[2018-10-06] MEDS ORDERED: [UNRECOGNIZED DRUG - OTHER] PO SCH (09:00)
[2018-10-06] MEDS ORDERED: [UNRECOGNIZED DRUG - REMARK] PO SCH (09:00)
[2018-10-06] MEDS: METOPROLOL TARTRATE 25 MG TAB PO SCH (12:13)
[2018-10-06] MEDS: CALCIUM 600MG + VIT D 400 IU TAB PO SCH (12:14)
[2018-10-06] MEDS: ASPIRIN 81 MG ECTAB PO SCH (12:14)
[2018-10-06] MEDS: METOPROLOL TARTRATE 50 MG TAB PO SCH (20:00)
[2018-10-06] MEDS: ALFUZOSIN HCL 10 MG TAB PO SCH (20:00)
[2018-10-06] MEDS: FOLIC ACID 1 MG TAB PO SCH (20:00)
[2018-10-06] MEDS: ROSUVASTATIN CALCIUM 10 MG TAB PO SCH (20:00)
--- NOTE | 2018-10-06 23:01 | Consultation Report ---
DATE OF CONSULTATION: 10/06/2018 REASON FOR CONSULTATION: Urinary retention. HISTORY OF PRESENTATION: The patient is an 78-year-old male who I have seen in the past for incomplete emptying and BPH who has been on Flomax and finasteride for several years. He has had a cystoscopy that showed a ball valve and an enlarged prostate. At one point, he actually did intermittent catheterization for incomplete emptying and we had tentatively planned for him to have a TURP, but his residuals came down to below 100 and he was seen as recently as 07/2018 with residuals of less than 100. His last PSA in 01/2018 was 0.372, which doubled and is 0.744 on finasteride. Sometime in the last several months, this patient began to have increased difficulty urinating associated with increasing back pain and some numbness in his lower extremities. He was admitted yesterday and had a surgery at L4-[address] Christensen and the patient was unable to void overnight and has been straight cathed 3 times. At this juncture, I had a long discussion with the patient, he does know how to do selfcath but because of the surgery will place a catheter if he is unable to void again this afternoon, which I suspect he will have troubles with We will be sending him home with an indwelling Banks catheter. Please review the medications, review of systems, past medical history and past surgical history from the admission history and physical. PHYSICAL EXAMINATION: GENERAL: The patient is a well-developed male in no obvious distress. HEENT: Unremarkable. He has no respiratory distress. NECK: Normal to appearance. HEENT: Normal to appearance. He has no significant pedal edema. ABDOMEN: Soft. He denies any flank pain. GENITOURINARY: Deferred. EXTREMITIES: Unremarkable. NEUROLOGIC: He is alert and oriented without any focal sensory deficits. ASSESSMENT: Urinary retention, benign prostatic hyperplasia, history of nephrolithiasis and incomplete emptying. PLAN: Continue finasteride and begin Macrodantin at bedtime, discharge with a Banks catheter. We will schedule a voiding trial next week in the office and if he is unable to void, we will discuss intermittent self-catheterization and then if this does not work, he may need ultimately a TURP. The patient understands the situation discussed at length with he and his . DUNG
[2018-10-07] MEDS ORDERED: BISACODYL 5 MG TABEC PO PRN (06:00)
[2018-10-07] MEDS ORDERED: ALENDRONATE SODIUM 70 MG TAB PO SCH (06:30)
[2018-10-07] MEDS: URSODIOL 300 MG CAP PO SCH (08:40)
[2018-10-07] MEDS: DOCUSATE SODIUM 100 MG CAP PO SCH (08:40)
[2018-10-07] MEDS: LORATADINE 10 MG TAB PO SCH (08:40)
[2018-10-07] MEDS: miSOPROStol 200 MCG TAB PO SCH (08:41)
[2018-10-07] MEDS: MAGNESIUM OXIDE 400 MG TAB PO SCH (08:41)
[2018-10-07] MEDS: ALLOPURINOL 300 MG TAB PO SCH (08:42)
[2018-10-07] MEDS: FINASTERIDE 5 MG TAB PO SCH (08:42)
[2018-10-07] MEDS: PANTOprazole 40 MG TAB PO SCH (08:42)
--- NOTE | 2018-10-07 10:26 | Progress Note ---
DATE: 10/07/2018 SUBJECTIVE: He is alert, oriented, comfortable here today. He is slow to ambulate. His legs are still weak and he had a Banks catheter administered. OBJECTIVE: Otherwise, vital signs stable, alert, oriented. No chest pain, shortness of breath. ASSESSMENT: Status post lumbar spine decompression laminectomy, multiple levels. Other comorbidities include thrombocytopenia, history of kidney disease, myocardial infarction, borderline diabetes, and urinary retention. PLAN: At this point in time, we will have him up on his feet with his walker. He has a walker at home, he has prescriptions at home, and we will discharge him home later on today around 11:00 in the morning. He is stable and he has a followup appointment in 10 days.
[2018-10-07] MEDS: ASPIRIN 81 MG ECTAB PO SCH (12:22)
[2018-10-07] MEDS: METOPROLOL TARTRATE 25 MG TAB PO SCH (12:23)
[2018-10-07] MEDS: CALCIUM 600MG + VIT D 400 IU TAB PO SCH (12:23)
[2018-10-08] MEDS ORDERED: ACETAMINOPHEN 500 MG TAB PO SCH (06:00)
--- NOTE | 2018-10-08 16:20 | Discharge Summary ---
Jrody had surgery performed on the 05 of October was fairly uneventful. He is out of bed to chair the next day. He had urinary retention. He required several catheter placements. He stabilized by day #2. He was discharged home with a Banks catheter. He had no chest pain, shortness of breath. No issues. Afebrile. Discharge improved, stable. Follow up in 10 days. He has medication at home.
== END 2018-10-07 13:19 | disposition home health service (06) ==
LOC: ASU 09:09 → 3E 13:11 → INTOOBSV 13:11

== ENCOUNTER 2019-02-03 14:01 | Inpatient (IN) ==
[2019-02-03 14:56] LABS: Echinocytes 1+; Eosinophils # (auto) 0.06 K/uL (0-0.5); Eosinophils % (auto) 1.7 %; Hematocrit (blood only) 41.7 % (42-52); Hemoglobin 14.4 g/dL (14.0-18.0); Immature Granulocytes # (auto) 0.02 K/uL (0.00-0.02); Immature Granulocytes % (auto) 0.6 %; Lymphocytes # (auto) 0.35 K/uL (1.2-3.4); Lymphocytes % (auto) 9.9 %; Mean Corpuscular Hgb Conc 34.5 g/dL (32-36); Monocytes # (auto) 0.28 K/uL (0.11-0.59); Monocytes % (auto) 7.9 %; Neutrophils # (auto) 2.84 K/uL (1.4-6.5); Neutrophils % (auto) 79.9 %; Platelet Count 44 K/uL (130-400); Platelet Estimate Decreased (Normal); RDW Coefficient of Variation 13.5 % (11.5-14.5); RDW Standard Deviation 48.5 fL (36.4-46.3); Red Blood Count 4.17 M/uL (4.7-6.1); White Blood Count 3.55 K/uL (4.8-10.8)
[2019-02-03 14:59] LABS: Albumin Globulin Ratio 0.9 (0.9-2); Albumin Level 3.2 gm/dl (3.4-5.0); BUN Creatinine Ratio 21.9 (10-20); Bilirubin,Total 0.8 mg/dl (0.2-1); Calcium 8.9 mg/dl (8.5-10.1); Creatinine Clr Calc Pharmacy 51.2 ml/min; Est GFR (African American) 69.3; Est GFR (Non-African American) 59.8; Globulin 3.4 gm/dl (2.5-4.0); Potassium 4.1 mmol/L (3.5-5.1); Total Protein 6.6 gm/dl (6.4-8.2)
[2019-02-03 15:11] LABS: Beta-Hydroxybutyrate 1.31 mg/dl (0.2-2.81)
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
--- NOTE | 2019-02-03 15:39 | CT Scan Report ---
CT head/brain wo con CT DOSE: HISTORY: Trauma. Mental status change. syncope/right arm weak/numb eval for bleed/cva TECHNIQUE: Multiaxial CT images of the head were performed without the use of intravenous contrast. A dose lowering technique was utilized adhering to the principles of ALARA. Comparison: 02/02/2019 Findings: The paranasal sinuses and mastoid air cells are clear. The calvarium and skull base are int act. The ventricles and sulci are within normal limits. There is no mass, hematoma, midline shift, or acute infarct. Age-related atrophy and chronic small vessel change. No evidence for acute intracrani al hemorrhage. No midline shift. Impression: No acute intracranial abnormality. No change from the prior study. The above report was generated using voice recognition software. It may contain grammatical, syntax or spelling errors. Electronically signed by: Guillermo Allan M.D. 02/03/2019 3:37 PM
[2019-02-03 15:54] LABS: Appearance Urine Cloudy (Clear); Bacteria Urine Automated Negative (Negative); Bilirubin Urine Negative (Negative); Blood Urine 3+ (Negative); Cast Urine Automated 0 /lpf (0-5); Color Urine Dark Yellow; Epithelial Cell Urine Auto 0-5 /lpf (0-5); Glucose Urine UA 3+ (Negative); Ketones Urine Negative (Negative); Leukocyte Esterase Urine 2+ (Negative); Nitrite Urine Negative (Negative); Protein Urine 1+ (Negative); Urobilinogen Urine Negative (Negative); WBC Urine Automated >30 /hpf (0-5)
[2019-02-03 16:07] LABS: RBC Urine Automated >30 /hpf (0-4)
[2019-02-03 16:08] LABS: Creatine Kinase 44 U/L (39-308); Troponin I < 0.015 ng/ml (0-0.045)
--- NOTE | 2019-02-03 16:25 | XRay Report ---
XR hip RT 2-3V w pelvis CLINICAL HISTORY: right hip pain post fall COMPARISON: None. DISCUSSION: Possible extremely subtle subcapital irregularity of the lateral trabecular pattern right hip. No well-defined cortical fracture. Mild degenerative changes throughout. There is no evidence f or soft tissue swelling. IMPRESSION: 1. Subtle subcapital trabecular pattern changes lateral right hip. 2. CT of the right hip is suggested to exclude an occult fracture. The above report was generated using voice recognition software. It may contain grammatical, syntax or spelling errors. Electronically signed by: Guillermo Allan M.D. 02/03/2019 4:23 PM
--- NOTE | 2019-02-03 16:26 | XRay Report ---
SINGLE VIEW CHEST CLINICAL HISTORY: Fever. FINDINGS: An AP, portable, semierect chest radiograph is compared to study dated 02/01/2019 and correl ated with chest CT dated 03/19/2017. The examination is degraded by portable technique and patient rot ation. The enlarged and there is atherosclerotic calcification of the thoracic aorta. There is pulm onary vascular congestion. There is airspace consolidation at the left lung base. Small pleural effus ions are noted. No pneumothorax is seen. The skeletal structures are osteopenic. The bony thorax is g rossly intact. A right shoulder arthroplasty is in place. IMPRESSION: 1. Cardiomegaly with evidence of congestive failure 2. There is dense airspace consolidation at the left lung base. This is new from 01/23/2019. Correlate clinically for evidence of pneumonia/aspiration pneumonitis. Radiographic follow-up to resolution is recommended. 3. Small pleural effusions. Electronically signed by: Bernardino Hernandez M.D. 02/03/2019 4:25 PM
--- NOTE | 2019-02-03 16:26 | XRay Report ---
XR knee RT 2V routine CLINICAL HISTORY: right knee pain post fall trauma. Pain. COMPARISON: None. DISCUSSION: Anatomic alignment posttotal right knee arthroplasty. Could contact between prosthetic in an Bone. There is no evidence for soft tissue swelling. IMPRESSION: No acute process. The above report was generated using voice recognition software. It may contain grammatical, syntax or spelling errors. Electronically signed by: Guillermo Allan M.D. 02/03/2019 4:24 PM
[2019-02-03] MEDS ORDERED: PIPERACILLIN/TAZOBACTAM 4.5 GM/120 ML BAG IV ONE (16:44)
[2019-02-03] MEDS ORDERED: PIPERACILL/TAZOBAC CONSULT ACTIVE PRN ×2 (16:44→19:54)
--- NOTE | 2019-02-03 17:01 | CT Scan Report ---
CT hip RT wo con CT DOSE: 338.91 mGy.cm HISTORY: Trauma. Pain. eval for fx TECHNIQUE: Multiaxial CT images of the right hip were performed and reformatted in the sagittal and c oronal plane without the use of contrast. A dose lowering technique was utilized adhering to the krista Etienne. COMPARISON: None. FINDINGS: Moderate generalized degenerative change throughout the hip and acetabular regions. Subtle step-off lateral cortical margin of the subcapital region. This potentially is osteophytic. There are several small degenerative subchondral cysts. No evidence well-defined fracture line with only minimal acetabular protrusion. IMPRESSION: 1. This examination significantly diminishes the possibility of an occult fracture. 2. This possibility is not completely excluded, however, as a potential cortical defect is present la terally. 3. An MRI of the right hip is suggested for complete confirmation. The above report was generated using voice recognition software. It may contain grammatical, syntax or spelling errors. Electronically signed by: Guillermo Allan M.D. 02/03/2019 5:00 PM
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
[2019-02-03 18:49] LABS: Appearance Urine Cloudy (Clear); Bacteria Urine Automated Negative (Negative); Bilirubin Urine Negative (Negative); Blood Urine 3+ (Negative); Color Urine Yellow; Epithelial Cell Urine Auto >30 /lpf (0-5); Glucose Urine UA 3+ (Negative); Ketones Urine Negative (Negative); Leukocyte Esterase Urine 2+ (Negative); Nitrite Urine Negative (Negative); Protein Urine Negative (Negative); RBC Urine Automated >30 /hpf (0-4); Specific Gravity Urine 1.027 (1.000-1.030); Urobilinogen Urine Negative (Negative); WBC Urine Automated >30 /hpf (0-5)
[2019-02-03 18:59] LABS: Renal Epithelial Cells Urine 0-5 /lpf (0-5)
--- NOTE | 2019-02-03 19:44 | Emergency Department Note ---
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 under my direction and personally reviewed by me in its entirety. I confirm that the note above accurately reflects all work, treatment, procedures, and medical decision making performed by me.
[2019-02-03] MEDS ORDERED: ONDANSETRON INJ 2 MG/ML 2 ML VIAL IV PRN (19:54)
[2019-02-03] MEDS ORDERED: ACETAMINOPHEN 325 MG TAB PO PRN (19:54)
[2019-02-03] MEDS ORDERED: KETOROLAC TROMETHAMINE 15 MG/ML VIAL IV PRN (19:54)
[2019-02-03] MEDS ORDERED: ALUMINUM/MAGNESIUM SUSP 30 ML UDC PO PRN (19:54)
[2019-02-03] MEDS ORDERED: GADOBUTROL 65ML VIAL IV PRN (22:03)
--- NOTE | 2019-02-03 22:16 | Magnetic Resonance Report ---
MRI OF THE BRAIN COMBO CLINICAL HISTORY: Right upper extremity weakness and paresthesias. Syncope. COMPARISON STUDY: CT of the brain dated 02/03/2019. TECHNIQUE: MRI of the brain was performed utilizing various T1 and T2-weighted sequences in the axial , sagittal, and coronal planes. Contrast-enhanced sequences were acquired following the administratio n of 7 cc of Gadavist. FINDINGS: Brain parenchyma: There is age-related involutional change noting moderate patchy subcortical and per iventricular microangiopathic disease. There is no hemorrhage or mass effect. There is no restricted diffusion to suggest acute ischemia. No enhancing mass lesion is identified on the postcontrast image s. Chronic lacunar infarcts are identified within both cerebellar hemispheres. Garduno-white matter diff erentiation is preserved. No extra-axial fluid collection is seen. The cerebellar tonsils are normal in configuration. Ventricles, sulci, and cisterns: Prominent secondary to involutional change. Cavum septum pellucidum is incidentally noted. Pituitary and sella: Unremarkable. Intracranial vasculature: Normal flow voids are maintained at the skull base. Orbits: The bony orbits are grossly intact. Orbital contents are normal in appearance noting bilatera l ocular lens implants. Sinuses and mastoids: There is trace mucosal thickening within the maxillary antra. The remaining par anasal sinuses and the mastoid air cells are clear. Calvarium: Unremarkable. Cervical cord: Partially visualized cervical spinal cord is normal in morphology and signal intensity . IMPRESSION: No acute intracranial abnormality. Electronically signed by: Bernardino Hernandez M.D. 02/03/2019 10:15 PM
[2019-02-03] MEDS: SODIUM CHLORIDE 0.9% 1000ML 1,000 ML IV SCH (22:25)
[2019-02-03] MEDS: PIPERACILLIN/TAZOBACTAM 3.375 GM in DEXTROSE 5% 100 ML IV SCH (22:26)
[2019-02-03] MEDS: METOPROLOL TARTRATE 50 MG TAB PO SCH (22:29)
[2019-02-03] MEDS: ASPIRIN 81 MG ECTAB PO SCH (22:29)
[2019-02-03] MEDS: ROSUVASTATIN CALCIUM 10 MG TAB PO SCH (22:30)
[2019-02-03] MEDS: INSULIN ASPART 100 UNITS/ML 3 ML PEN SC SCH (22:30)
[2019-02-04] MEDS: ENOXAPARIN INJ 40 MG/0.4 ML SYR SQ SCH ×2 (00:11→21:23)
[2019-02-04] MEDS: PIPERACILLIN/TAZOBACTAM 3.375 GM in DEXTROSE 5% 100 ML IV SCH (05:49)
[2019-02-04 07:01] LABS: Hemoglobin 12.6 g/dL (14.0-18.0); Mean Corpuscular Hgb Conc 34.1 g/dL (32-36); Mean Corpuscular Volume 99.5 fL (80-100); Mean Platelet Volume 12.3 fL (7.4-10.4); Platelet Count 56 K/uL (130-400); RDW Coefficient of Variation 13.5 % (11.5-14.5); Red Blood Count 3.72 M/uL (4.7-6.1); White Blood Count 4.29 K/uL (4.8-10.8)
[2019-02-04 07:02] LABS: Basophils # (auto) 0.01 K/uL (0-0.2); Basophils % (auto) 0.2 %; Eosinophils # (auto) 0.11 K/uL (0-0.5); Eosinophils % (auto) 2.6 %; Immature Granulocytes # (auto) 0.02 K/uL (0.00-0.02); Immature Granulocytes % (auto) 0.5 %; Lymphocytes # (auto) 0.75 K/uL (1.2-3.4); Lymphocytes % (auto) 17.5 %; Monocytes # (auto) 0.39 K/uL (0.11-0.59); Monocytes % (auto) 9.1 %; Neutrophils # (auto) 3.01 K/uL (1.4-6.5); Neutrophils % (auto) 70.1 %
[2019-02-04 07:08] LABS: BUN Creatinine Ratio 14.6 (10-20); Calcium 8.2 mg/dl (8.5-10.1); Creatinine Clr Calc Pharmacy 75.5 ml/min; Est GFR (African American) 98.8; Est GFR (Non-African American) 85.3; Potassium 3.6 mmol/L (3.5-5.1)
[2019-02-04] MEDS ORDERED: [UNRECOGNIZED DRUG - OTHER] PO SCH (09:00)
[2019-02-04] MEDS: FINASTERIDE 5 MG TAB PO SCH (09:03)
[2019-02-04] MEDS: PANTOprazole 40 MG TAB PO SCH (09:04)
[2019-02-04] MEDS: MAGNESIUM OXIDE 400 MG TAB PO SCH (09:05)
[2019-02-04] MEDS: ALLOPURINOL 300 MG TAB PO SCH (09:05)
[2019-02-04] MEDS: OMEGA-3 (PURIFIED FISH OIL) 1 GM CAP PO SCH (09:05)
[2019-02-04] MEDS: miSOPROStol 200 MCG TAB PO SCH (09:06)
[2019-02-04] MEDS: LIDOCAINE 5% 1 PATCH TD SCH (09:06)
[2019-02-04] MEDS: URSODIOL 300 MG CAP PO SCH ×2 (09:06→17:41)
[2019-02-04] MEDS: INSULIN ASPART 100 UNITS/ML 3 ML PEN SC SCH ×4 (09:15→20:30)
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
--- NOTE | 2019-02-04 10:51 | Consultation Report ---
DATE OF CONSULTATION: 02/04/2019 ORTHOPEDIC CONSULTATION CHIEF COMPLAINT: Bilateral hip pain. HISTORY OF PRESENT ILLNESS: Jordy is a pleasant gentleman. I have known him for several years, provided lumbar spine surgery on him within 12 months. He was in his usual state of pretty good health, although does have some medical problems, had essentially a syncopal episode with some numbness to his right upper extremity. He fell, went backwards, forwards, did not hit his head, and then fell to his buttock area. Among his other concerns was right hip pain, and the x-rays and CT were normal. We were consulted. Currently, on bed rest. PAST MEDICAL HISTORY: Positive for thrombocytopenia, cirrhosis, diabetes, syncope. ALLERGIES: NUMEROUS. MEDICATIONS: Greater than 30, I have held off on dictation of these to be concise. PAST SURGICAL HISTORY: Positive for ERCP, appendectomy, arthroplasty, cholecystectomy. He had hand surgery, thumb surgery and bilateral knee replacements and spine surgery. FAMILY HISTORY: Breast CA. SOCIAL HISTORY: Nonsmoker, non-ETOH user. Alert, oriented, . Feels safe. No alcohol as stated. OBJECTIVE: He is alert, oriented this morning. He recognized me right away at 7:30 a.m. In regard to his orthopedic issues, there is no breakage of skin. There is no warmth, erythema. He has good range of motion of bilateral hips. There is no physical evidence of any type of hip fracture. No pain with flexion, extension, external and internal rotation, no shortening. IMAGING DATA: X-rays reviewed. CT scan reviewed. I did not see any evidence of any fracture of the lower extremities. IMPRESSION: Strain/sprain, lumbar spine, musculoskeletal back and hip pain without fracture. PLAN: I will change his order, we will get him up with physical therapy and occupational therapy today. Hopefully, get him mobilized and hopefully home soon.
--- NOTE | 2019-02-04 11:06 | Procedure Note ---
EEG Procedure Note Date of Service February 04, 2019 Start / End Times Start Time: 10:17 AM End Time: 10:37 AM Referring Physician Gil Brown MD History Seizure-like activity, syncope Home Medication List Home Medications Medication Instructions Recorded Confirmed Type Caltrate 600 plus D 1 tab PO QDL 09/29/18 02/03/19 History Dry Eye [place] Benefits 4 cap PO QAM 09/29/18 02/03/19 History Eye Drops Advanced Relief 2 drp OPB [facility] 09/29/18 02/03/19 History [place] 3-6-9 1 cap PO QAM 09/29/18 02/03/19 History alendronate 70 mg PO WK 09/29/18 02/03/19 History alfuzosin 10 mg PO QDD 09/29/18 02/03/19 History allopurinol 300 mg PO QAM 09/29/18 02/03/19 History aspirin 325 mg PO UD PRN 09/29/18 02/03/19 History ciprofloxacin HCl 500 mg PO BID PRN 09/29/18 02/03/19 History diclofenac sodium 75 mg PO QAM 09/29/18 02/03/19 History finasteride 5 mg PO QAM 09/29/18 02/03/19 History loratadine [Claritin] 10 mg PO QAM PRN 09/29/18 02/03/19 History magnesium oxide 400 mg PO QAM 09/29/18 02/03/19 History meclizine 25 mg PO DAILY PRN 09/29/18 02/03/19 History metoprolol tartrate 50 mg PO HS 09/29/18 02/03/19 History metoprolol tartrate 75 mg PO QDL 09/29/18 02/03/19 History misoprostol 200 mcg PO QAM 09/29/18 02/03/19 History omeprazole 20 mg PO QAM 09/29/18 02/03/19 History rosuvastatin 10 mg PO HS 09/29/18 02/03/19 History ursodiol 300 mg PO BIDM 09/29/18 02/03/19 History aspirin 81 mg PO HS 12/11/18 02/03/19 History folic acid 1 mg PO QDL 02/02/19 02/03/19 History naproxen sodium [Aleve] 220 mg PO BID PRN 02/02/19 02/03/19 History naproxen-diphenhydramine [Aleve PM] 2 tab PO HS PRN 02/02/19 02/03/19 History Pain Aid 2 tab PO DAILY PRN 02/03/19 02/03/19 History Inpatient Medication List Allopurinol (Zyloprim) 300 mg PO QAM [facility] Stop: 03/06/19 08:59 Last Admin: 02/04/19 09:05 Dose: 300 mg Documented by: [id number] Aspirin (Ecotrin Ectab) 81 mg PO HS [facility] Stop: 03/05/19 20:59 Last Admin: 02/03/19 22:29 Dose: 81 mg Documented by: [id number] Enoxaparin Sodium (Lovenox) 40 mg SQ Q24H [facility] Stop: 03/05/19 21:29 Last Admin: 02/04/19 00:11 Dose: 40 mg Documented by: [id number] Finasteride (Proscar) 5 mg PO QAM [facility] Stop: 03/06/19 08:59 Last Admin: 02/04/19 09:03 Dose: 5 mg Documented by: [id number] Fish Oil ([place]-3 (Purified Fish Oil)) 1 gm PO QAM [facility] Stop: 03/06/19 08:59 Last Admin: 02/04/19 09:05 Dose: 1 gm Documented by: [id number] Gadobutrol (Gadavist 65ml) 7 ml IV ONCE PRN PRN Reason: Interaction Checking Stop: 02/07/19 22:02 Last Admin: 02/03/19 22:04 Dose: 7 ml Documented by: [id number] Sodium Chloride (Nss 1000ml) 1,000 mls @ 80 mls/hr IV .[id number] [facility] Stop: 03/05/19 19:53 Last Infusion: 02/04/19 10:24 Dose: 80 mls/hr Documented by: [id number] Infusion: 02/04/19 09:27 Dose: 0 mls/hr Documented by: [id number] Infusion: 02/04/19 05:49 Dose: 80 mls/hr Documented by: [id number] Admin: 02/03/19 22:25 Dose: 80 mls/hr Documented by: [id number] Piperacillin Sod/Tazobactam (Sod 3.375 gm/ Dextrose) 115 mls @ 28.75 mls/hr IV Q8H [facility]; Protocol Stop: 02/10/19 21:59 Last Infusion: 02/04/19 09:49 Dose: 0 mls/hr Documented by: [id number] Admin: 02/04/19 05:49 Dose: 28.8 mls/hr Documented by: [id number] Infusion: 02/04/19 02:30 Dose: 0 mls/hr Documented by: [id number] Admin: 02/03/19 22:26 Dose: 28.8 mls/hr Documented by: [id number] Insulin Aspart (Novolog Flexpen) [address] [facility] Stop: 03/05/19 20:59 Last Admin: 02/04/19 09:15 Dose: 3 units Documented by: [id number] Cosigned by: [id number] Admin: 02/03/19 22:30 Dose: 2 units Documented by: [id number] Cosigned by: [id number] Lidocaine (Lidoderm 5%) [address] [facility] Stop: 03/06/19 08:59 Last Admin: 02/04/19 09:06 Dose: 1 patch Documented by: [id number] Magnesium Oxide (Mag-Ox) [address] [facility] Stop: 03/06/19 08:59 Last Admin: 02/04/19 09:05 Dose: 400 mg Documented by: [id number] Metoprolol Tartrate (Lopressor) 50 mg PO [facility] Stop: 03/05/19 20:59 Last Admin: 02/03/19 22:29 Dose: 50 mg Documented by: [id number] Misoprostol (Cytotec) [address] [facility] Stop: 03/06/19 08:59 Last Admin: 02/04/19 09:06 Dose: 200 mcg Documented by: [id number] Pantoprazole Sodium (Protonix) [address] [facility] Stop: 03/06/19 08:59 Last Admin: 02/04/19 09:04 Dose: 40 mg Documented by: [id number] Rosuvastatin Calcium (Crestor) 10 mg PO [facility] Stop: 03/05/19 20:59 Last Admin: 02/03/19 22:30 Dose: 10 mg Documented by: [id number] [facility] ([facility]igall) [facility] Stop: 03/06/19 07:59 Last Admin: 02/04/19 09:06 Dose: 300 mg Documented by: [id number] Discontinued Medications Piperacillin Sod/Tazobactam Sod (Zosyn) 4.5 gm in 120 mls @ 240 mls/hr IV NOW ONE Stop: 02/03/19 17:13 Last Infusion: 02/03/19 20:40 Dose: 0 mls/hr Documented by: [id number] Admin: 02/03/19 17:29 Dose: 240 mls/hr Documented by: [id number] Description This is a 21 electrode EEG with a single channel dedicated to limited EKG. The electrodes were placed in accordance with the International 10-20 system. There is a posterior dominant rhythm of 10 Hz which is symmetrically distributed and attenuates with eye opening. There is a normal anterior to posterior organization. Photic stimulation is unremarkable. Hyperventilation is not performed. There is a moderate degree of admixed generalized 6 Hz theta activit y seen throughout the study. There are a few vertex waves for the latter part of the study. There is intermittent movement artifact throughout the study. No epileptiform abnormalities observed. Interpretation Normal-appearing awake and asleep EEG. Clinical Correlation A normal EEG does not completely exclude a diagnosis of epilepsy. Please see today's neurology consult for further clinical correlation. [facility] EEG Procedure Codes Indication for Procedure Indication for procedure: Seizure-like activity Neurology Neurology: EEG include record awake & sleepy
[2019-02-04] MEDS ORDERED: OPTIRAY 320 125ml IV PRN (11:18)
--- NOTE | 2019-02-04 11:41 | CT Scan Report ---
CT angio head w con CLINICAL HISTORY: syncope TECHNIQUE: CT angiography of the head was performed in a dynamic helical fashion during intravenous a dministration of 119 cc of Optiray 320. MIP imaging was performed. A dose lowering technique was util ized adhering to the principles of ALARA. CT DOSE: 679.06 mGy.cm COMPARISON STUDY: Noncontrast head CT dated 02/03/2019 FINDINGS: There are no lesion suspicious for aneurysm. There are no major intracranial branch occlusi ons. The dural venous sinuses appear patent. Incidental note is made of a cavum septum pellucidum and cavum 30. There are no pathologically enhancing lesions. IMPRESSION: Unremarkable CT angiography of the brain. Electronically signed by: Anderson Dietrich M.D. 02/04/2019 11:39 AM
--- NOTE | 2019-02-04 11:58 | CT Scan Report ---
CT angio neck with con HISTORY: Mental status change syncope TECHNIQUE: Multiaxial CT angiography of the neck was performed IV contrast: 100 cc All measurements were calculated based on NASCET criteria. Maximum intensity projection images were also obtained. A dose lowering technique was utilized adhering to the principles of ALARA. COMPARISON STUDY: None. FINDINGS: The aortic arch and proximal great vessels are widely patent. There is no significant sten osis, occlusion, or dissection identified within the bilateral common carotid, internal carotid, or v ertebral arteries. Mild plaque formation at the carotid bifurcations bilaterally. IMPRESSION: No significant stenosis, occlusion, or dissection identified within the carotid or vertebral arteries . Mild plaque formation at the carotid bifurcations The above report was generated using voice recognition software. It may contain grammatical, syntax or spelling errors. Electronically signed by: Guillermo Allan M.D. 02/04/2019 11:57 AM
[2019-02-04] MEDS: FOLIC ACID 1 MG TAB PO SCH (12:23)
[2019-02-04] MEDS: CALCIUM 600MG + VIT D 400 IU TAB PO SCH (12:23)
[2019-02-04] MEDS: METOPROLOL TARTRATE 25 MG TAB PO SCH (12:23)
[2019-02-04] MEDS: AZITHROMYCIN 500 MG in DEXTROSE 5% 250 ML IV SCH (12:24)
[2019-02-04] MEDS ORDERED: Nursing to Pharmacy Communication ONE (14:22)
[2019-02-04] MEDS: SODIUM CHLORIDE 0.9% 1000ML 1,000 ML IV SCH ×2 (15:05→17:41)
[2019-02-04] MEDS ORDERED: ALFUZOSIN HCL 10 MG TAB PO SCH (16:30)
[2019-02-04] MEDS: METOPROLOL TARTRATE 50 MG TAB PO SCH (21:24)
[2019-02-04] MEDS: ASPIRIN 81 MG ECTAB PO SCH (21:24)
[2019-02-04] MEDS: ROSUVASTATIN CALCIUM 10 MG TAB PO SCH (21:25)
--- NOTE | 2019-02-04 23:13 | Hospitalist Progress Note ---
Date of Service February 04, 2019 Assessment & Plan (1) Syncope: Telemetry. Supportive care. Consult neurology. Doubt cardiac syncope Appreciate input from Neuro. Patient will continue on ASA. Will obtain CTA of head and Neck. Cuase may be complex migraine vs TIA. Will continue to onitor. (2) Acute UTI: Pleace on cephlosporin due to cultures. Initlaly on zosyn. Gram negatives isolated in recent urine culture (3) Injury of hip, right: Equivocal findings on x-ray and CT scan. Consult orthopedics. Bedrest for now (4) Left lower lobe pneumonia: Patient denies symptoms of aspiration. continue on azithromycin. Sputum culture if any sputum is produced (5) Arm paresthesia, right: Neurological consultation. Brain MRI scan (6) Type 2 diabetes mellitus: ADA diet. 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 This included discussion with family and consultants. Subjective Patient reports feeling better. He stll requires oxygeN. He states at home he does not require any oxygen. Review of Systems Review of Systems: Constitutional-no fever or chills. Weakness ENT-no blurred vision, no double vision, no epistaxis, no sore throat Respiratory-no cough, no wheezing, no shortness of breath Cardiac-no palpitations, no chest pain. Syncope today GI-no nausea, vomiting, diarrhea, melena, hematochezia. Chronic abdominal pain -urinary retention with need for straight cath Musculoskeletal-right hip pain after falling today Skin-right shoulder contusion and bruising after falling today. Right hip contusion Neuro-right upper extremity paresthesia, weakness, discoordination Psych-no depression, no anxiety Physical Exam Physical Exam: General-awake, alert HEENT-head atraumatic and normocephalic, TMs intact bilaterally, pupils equal and reactive to light, extraocular muscles intact Neck-no lymphadenopathy or thyromegaly, trachea midline Chest-decreased rhochi in left base No wheezing Cardiac-regular rate and rhythm, normal S1 and S2, no JVD Abdomen-normal bowel sounds. Functioning colostomy left lower quadrant. Extremities-right hip tenderness to palpation. No shortening of the right leg. Limited range of motion right hip due to pain Neuro-cranial nerves II through XII intact. No apparent focal motor deficits at the time of my examination. Generalized weakness noted Psych-normal affect, normal mood Results & Data Vital Signs (Past 12 Hours) Vital Signs Temp Pulse Pulse Pulse Resp BP Pulse Ox 02/04/19 19:17 36.9 C 61 19 143/75 H 94 02/04/19 15:29 64 02/04/19 15:15 36.7 C 64 18 141/75 H 93 02/04/19 12:36 36.8 C 61 20 146/76 H 95 02/04/19 12:18 69 141/75 H PG Care Time/CCT Total # of Minutes Spent Total Time Spent with Patient: Total time spent is greater than 50% in coordination of care (as documented) at patient's floor/unit and/or counseling patient: (1) Syncope Syncope type: unspecified Qualified Code(s): R55 - Syncope and collapse (2) Left lower lobe pneumonia Pneumonia type: due to unspecified organism Qualified Code(s): J18.1 - Lobar pneumonia, unspecified organism (3) Injury of hip, right Encounter type: initial encounter Qualified Code(s): S79.911A - Unspecified injury of right hip, initial encounter
[2019-02-05] MEDS: SODIUM CHLORIDE 0.9% 1000ML 1,000 ML IV SCH (04:54)
[2019-02-05 06:28] LABS: Hematocrit (blood only) 36.6 % (42-52); Hemoglobin 12.6 g/dL (14.0-18.0); Mean Corpuscular Hgb Conc 34.4 g/dL (32-36); Mean Corpuscular Volume 100.3 fL (80-100); RDW Coefficient of Variation 13.4 % (11.5-14.5); RDW Standard Deviation 49.3 fL (36.4-46.3); Red Blood Count 3.65 M/uL (4.7-6.1); White Blood Count 3.46 K/uL (4.8-10.8)
[2019-02-05 06:50] LABS: Mean Platelet Volume 11.9 fL (7.4-10.4); Platelet Count 48 K/uL (130-400)
[2019-02-05 06:57] LABS: Basophils # (auto) 0.01 K/uL (0-0.2); Basophils % (auto) 0.3 %; Eosinophils % (auto) 2.9 %; Immature Granulocytes # (auto) 0.02 K/uL (0.00-0.02); Immature Granulocytes % (auto) 0.6 %; Lymphocytes # (auto) 0.67 K/uL (1.2-3.4); Lymphocytes % (auto) 19.4 %; Monocytes # (auto) 0.34 K/uL (0.11-0.59); Monocytes % (auto) 9.8 %; Neutrophils # (auto) 2.32 K/uL (1.4-6.5)
[2019-02-05 07:02] LABS: Calcium 8.3 mg/dl (8.5-10.1); Creatinine Clr Calc Pharmacy 69.3 ml/min; Est GFR (African American) 95.4; Est GFR (Non-African American) 82.3; Potassium 3.5 mmol/L (3.5-5.1)
[2019-02-05] MEDS: URSODIOL 300 MG CAP PO SCH (08:05)
[2019-02-05] MEDS: LIDOCAINE 5% 1 PATCH TD SCH (08:05)
[2019-02-05] MEDS: ALLOPURINOL 300 MG TAB PO SCH (08:06)
[2019-02-05] MEDS: MAGNESIUM OXIDE 400 MG TAB PO SCH (08:06)
[2019-02-05] MEDS: FINASTERIDE 5 MG TAB PO SCH (08:07)
[2019-02-05] MEDS: PANTOprazole 40 MG TAB PO SCH (08:07)
[2019-02-05] MEDS: miSOPROStol 200 MCG TAB PO SCH (08:07)
[2019-02-05] MEDS: OMEGA-3 (PURIFIED FISH OIL) 1 GM CAP PO SCH (08:07)
[2019-02-05] MEDS: INSULIN ASPART 100 UNITS/ML 3 ML PEN SC SCH ×2 (08:08→12:23)
[2019-02-05] MEDS ORDERED: cefTRIAXone SODIUM 1,000 MG in DEXTROSE 5% 50 ML IV SCH (09:00)
[2019-02-05] MEDS: METOPROLOL TARTRATE 25 MG TAB PO SCH (12:19)
[2019-02-05] MEDS: CALCIUM 600MG + VIT D 400 IU TAB PO SCH (12:19)
[2019-02-05] MEDS: FOLIC ACID 1 MG TAB PO SCH (12:20)
[2019-02-05] MEDS: AZITHROMYCIN 500 MG in DEXTROSE 5% 250 ML IV SCH (12:22)
--- NOTE | 2019-02-14 22:30 | Discharge Summary ---
Date of Service February 05, 2019 Admission HPI Per Admitting Provider 78-year-old male with multiple acute problems. He has had been having some paresthesia intermittently of the right upper extremity then developed worsening coordination and inability to right with the right hand. He felt as if the right arm was weaker than normal. He had a syncopal episode today after stating he just did not feel well. He denies any palpitations or chest pain. He does have small bite solano on both sides of the tongue but he did not have any loss of sphincter control. No previous seizure disorder. However, this may have been a seizure. He also has a UTI and evidence of left lower lobe pneumonia. He.denies any dysphagia or coughing while eating. He does have right hip pain since he fell and there are equivocal findings on x-ray and CT scan for a right hip fracture. He will be placed at bedrest and orthopedic consultation requested. Neurological consultation is also been requested and brain MRI scan is pending. He has been started on intravenous Zosyn in the ED. Urine culture done yesterday reveals gram-negative's. Blood cultures are pending. He was evaluated in the emergency department a day or 2 ago and then sent home. He also had recent extensive abdominal scans for his history of cirrhosis and primary sclerosing cholangitis. He has previously had a colectomy for ulcerative colitis and now has a prominent left lower quadrant ileostomy. Principal Diagnosis Syncope likely from complex migraine Discharge Exam General-awake, alert HEENT-head atraumatic and normocephalic, TMs intact bilaterally, pupils equal and reactive to light, extraocular muscles intact Neck-no lymphadenopathy or thyromegaly, trachea midline Chest-decreased rhochi in left base No wheezing Cardiac-regular rate and rhythm, normal S1 and S2, no JVD Abdomen-normal bowel sounds. Functioning colostomy left lower quadrant. Extremities-right hip tenderness to palpation. No shortening of the right leg. Limited range of motion right hip due to pain Neuro-cranial nerves II through XII intact. No apparent focal motor deficits at the time of my examination. Generalized weakness noted Psych-normal affect, normal mood Discharge Data Allergies Allergy/AdvReac Type Severity Reaction Status Date / Time Egg Derived Allergy Intermediate RASH WITH Verified 02/03/19 15:22 LARGE QUANTITIES pollen extracts Allergy Intermediate ITCHY Verified 02/03/19 15:28 EYES, SNEEZING, CONGESTION metformin Allergy Unknown Verified 02/04/19 11:26 codeine AdvReac Intermediate N/V, Verified 02/03/19 15:22 HYPOTENSTION meperidine AdvReac Intermediate N/V, Verified 02/03/19 15:22 HYPOTENSTION morphine AdvReac Intermediate N/V, Verified 02/03/19 15:22 HYPOTENSTION Flu Virus Vaccine Allergy Unknown AVOIDS DUE Uncoded 02/03/19 15:22 TO EGG ALLERGY NARCOTICS AdvReac Intermediate N/V, Uncoded 02/03/19 15:22 HYPOTENSTION Consultations 02/03/19 16:44 ED Decision to Admit Stat 02/03/19 19:54 Consult Neurology Routine Consult Orthopedic Surgery Routine Ordered Studies 02/03/19 14:53 CT cervical spine wo con Stat CT head/brain wo con Stat 02/03/19 16:28 CT hip RT wo con Stat 02/03/19 19:54 MR brain wo/w con Routine 02/04/19 10:19 CT angio head w con Routine CT angio neck with con Routine Hospital Course (1) Syncope: Telemetry. Supportive care. Consult neurology. Doubt cardiac syncope Appreciate input from Neuro. Patient will continue on ASA. CTA of head and Neck was negative. Cuase may be complex migraine vs TIA. Will continue to onitor. (2) Acute UTI: Placed on cephlosporin due to cultures. Initlaly on zosyn. Gram negatives isolated in recent urine culture; will place on cefdinir at discharge. F/U Urology in 2 weeks (3) Injury of hip, right: Equivocal findings on x-ray and CT scan. Consult orthopedics. Actvity as tolerated (4) Left lower lobe pneumonia: Patient denies symptoms of aspiration. continue on azithromycin. Sputum culture if any sputum is produced (5) Arm paresthesia, right: Neurological consultation. Brain MRI scan as noted (6) Type 2 diabetes mellitus: ADA diet. 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: Serial labs \ Total Time Total Time Spent Total Time Spent (In Minutes): 32 Total Time Includes: Examination of the Patient, Discharge Planning and Medication Reconciliation Discharge Plan Discharge Items Patient Disposition: Home - Self-Care Reason For Visit: syncope,possible right hip fracture,uti,pneumonia Discharge Diagnosis: syncope: possible complex migraine Discharge Goals: Decrease discomfort Activity: Resume your previous activity Non-emergency contact: Primary Care Provider and Neurologist Call non-emergency contact if: you have any medication questions Follow-up/Referrals: Tom Bucio MD [Primary Care Provider] - 02/10/19 10:10 am (Please, follow up with Dr. Guillaume with [facility] on FridayFebruary 10 at 10:10 am. *If you need to change this appointment, call the office at [phone].) Diet: Regular Addtl Provider Instructions: You were seen for pneumonia and a UTI. You will be placed on azithromycin for pneumonia which you will take at noon daily. The cefdinir you will take at in the evening and the morning. Take first dose of cefdinir this evening. Followup with urology in next 2 weeks (appointment already scheduled). Limit acetaminophen due to liver problems. Doubt you had a TIA. Likely a combination of infections. Risk Factors for Stroke: You can reduce your chances of stroke by working with your medical provider to adopt a healthy lifestyle. Some specific ways to lower your chance of stroke are: * If you are a smoker, now is the time to stop smoking cigarettes * If you are diabetic, improve the control of your blood sugars * Avoid excessive amounts of alcohol * Control high blood pressure * Lose weight if you are overweight * Be sure to lead an active lifestyle * Eat a healthy diet low in salt, cholesterol and fat You should know about other risk factors for stroke that you are unable to control. These include: * Age 55 years or older * Male gender * Certain racial groups: , or / * Family History of Stroke, Mini stroke or Heart Attack * Sickle Cell Disease Follow Up: It is important for you to keep your follow up appointments with your medical provider. Who to Call and When: Medical Emergencies: Call 911 immediately if you experience any of the following warning signs and symptoms of Stroke: * Sudden numbness or weakness of the face, arm or leg, especially on one side of the body * Sudden confusion, trouble speaking or understanding * Sudden trouble seeing in one or both eyes * Sudden trouble walking, dizziness, loss of balance or coordination * Sudden severe headache with no cause Do not delay calling 911 if you experience any warning signs or symptoms of a stroke. Delay in seeking medical attention may affect what treatments can be given to you. . Prescriptions: New acetaminophen [Mapap (acetaminophen)] 325 mg Tablet 650 mg PO Q4H PRN (Reason: mild pain) Qty: 30 RF: 0 lidocaine 4 % adhesive patch,medicated 1 patch topical QAM Qty: 15 RF: 0 cefdinir 300 mg capsule 300 mg PO BID 10 Days Qty: 20 RF: 0 Continued folic acid 1 mg tablet 1 mg PO QDL RF: 0 naproxen sodium [Aleve] 220 mg Tablet 220 mg PO BID PRN (Reason: laminectomy pain) RF: 0 alendronate 70 mg Tablet 70 mg PO WK RF: 0 meclizine 25 mg Tablet 25 mg PO DAILY PRN (Reason: Vertigo) RF: 0 misoprostol 200 mcg Tablet 200 mcg PO QAM RF: 0 ursodiol 300 mg Capsule 300 mg PO BIDM RF: 0 metoprolol tartrate 50 mg Tablet 75 mg PO QDL RF: 0 metoprolol tartrate 50 mg Tablet 50 mg PO HS RF: 0 allopurinol 300 mg Tablet 300 mg PO QAM RF: 0 finasteride 5 mg Tablet 5 mg PO QAM RF: 0 loratadine [Claritin] 10 mg Tablet 10 mg PO QAM PRN (Reason: seasonal allergies) RF: 0 alfuzosin 10 mg Tablet Extended Release 24 Hr 10 mg PO QDD RF: 0 Eye Drops Advanced Relief 0.05-0.1-1-1 % Drops 2 drp OPB AMHS RF: 0 omeprazole 20 mg Tablet,Delayed Release (Dr/Ec) 20 mg PO QAM RF: 0 Dry Eye Warden Benefits 667-250 mg-unit Capsule 4 cap PO QAM RF: 0 Caltrate 600 plus D 600 mg (1,500 mg)-800 unit Tablet,Chewable 1 tab PO QDL RF: 0 Warden 3-6-9 1,200 mg Capsule 1 cap PO QAM RF: 0 magnesium oxide 400 mg magnesium Tablet 400 mg PO QAM RF: 0 rosuvastatin 10 mg Tablet 10 mg PO HS RF: 0 aspirin 81 mg Tablet,Delayed Release (Dr/Ec) 81 mg PO HS RF: 0 Pain Aid 2 tab PO DAILY PRN (Reason: Pain) RF: 0 Discontinued Aleve PM 220-25 mg Tablet 2 tab PO HS PRN (Reason: laminectomy pain) RF: 0 aspirin 325 mg Tablet 325 mg PO UD PRN (Reason: MIGRAINES) RF: 0 ciprofloxacin HCl 500 mg Tablet 500 mg PO BID PRN (Reason: PSC) RF: 0 diclofenac sodium 75 mg Tablet,Delayed Release (Dr/Ec) 75 mg PO QAM RF: 0 Stand-Alone Forms: [facility] Discharge Orders: Discharge Order (Routine); Ordered 02/05/19 Ordered By: Brock Rosenberg Admission Data Admit Date/Time: 02/03/19 17:45 Attending Provider: Brock Rosenberg Admit Provider: Duke Martinez Primary Care Provider: Tom Bucio Other Providers: Duke Martinez ; Gil Brown ; Walter Martinez III ; Lea Kaur ; Quincy Estrada ; Marcello Myrick Service: Telemetry Medical Other Interventions: Discharge Summary Assessment (RN) Last Done: 02/05/19 16:08 DC Date/Time DO NOT enter until pt leaves facility: 02/05/19 16:42
== END 2019-02-05 16:42 | disposition home or self-care (01) | DRG 102 ==
LOC: ED 14:01 → SUATTDRO 17:45 → 2N 17:45

== ENCOUNTER 2019-07-05 09:04 | Observation (INO) ==
--- NOTE | 2019-06-28 12:55 | Anesthesiology Consultation ---
Date of Service June 28, 2019 Assessment & Plan (1) Encounter for pre-operative examination: Chart Review Chart Review: Acceptable Risk for Surgery and Patient NOT seen in Pre Admission Testing Consults Requested none History Surgery Operation Date: 07/05/19 09:40 Proposed Procedures p Transurethral Resection Prostate - Adriano Silva DO s Cystolithopaxy Of Bladder Stone Fragmentation and Removal - Adriano Silva DO Height/Weight Height: 5 ft 9 in Weight: 74.843 kg Allergies Allergy/AdvReac Type Severity Reaction Status Date / Time Egg Derived Allergy Intermediate RASH WITH Verified 06/28/19 09:45 LARGE QUANTITIES pollen extracts Allergy Intermediate ITCHY Verified 06/28/19 09:45 EYES, SNEEZING, CONGESTION metformin Allergy Unknown GI ISSUES Verified 06/28/19 09:45 codeine AdvReac Intermediate N/V, Verified 06/28/19 09:45 HYPOTENSTION fentanyl AdvReac Intermediate EXTREME Verified 06/28/19 09:45 NAUSEA; BP DROPS meperidine AdvReac Intermediate N/V, Verified 06/28/19 09:45 HYPOTENSTION morphine AdvReac Intermediate N/V, Verified 06/28/19 09:45 HYPOTENSTION Flu Virus Vaccine Allergy Unknown AVOIDS DUE Uncoded 06/28/19 09:45 TO EGG ALLERGY NARCOTICS AdvReac Intermediate N/V, Uncoded 06/28/19 09:45 HYPOTENSTION Medications Home Medications Medication Instructions Recorded Confirmed Last Taken Caltrate 600 plus D 1 tab PO QDL 09/29/18 06/28/19 06/03/19 Eye Drops Advanced Relief 2 drp OPB AMHS 09/29/18 06/28/19 06/03/19 [place] 3-6-9 1 cap PO QAM 09/29/18 06/28/19 06/03/19 alendronate 70 mg PO WK 09/29/18 06/28/19 06/02/19 alfuzosin 10 mg PO QDD 09/29/18 06/28/19 06/03/19 allopurinol 300 mg PO QAM 09/29/18 06/28/19 06/03/19 finasteride 5 mg PO QAM 09/29/18 06/28/19 06/03/19 magnesium oxide 400 mg PO QAM 09/29/18 06/28/19 06/03/19 misoprostol 200 mcg PO QAM 09/29/18 06/28/19 06/03/19 omeprazole 20 mg PO QAM 09/29/18 06/28/19 06/03/19 rosuvastatin 10 mg PO HS 09/29/18 06/28/19 06/03/19 ursodiol 300 mg PO BIDM 09/29/18 06/28/19 06/03/19 aspirin 81 mg PO HS 12/11/18 06/28/19 06/03/19 folic acid 1 mg PO QDL 02/02/19 06/28/19 06/03/19 metoprolol tartrate 50 mg tablet 50 mg PO QDL tab 03/30/19 06/28/19 06/03/19 metoprolol tartrate 50 mg tablet 75 mg PO HS #135 tab 03/30/19 06/28/19 06/03/19 aspirin 325 mg PO DAILY PRN 04/02/19 06/28/19 Unknown ciprofloxacin HCl [Cipro] 500 mg PO DIRECTED PRN 04/02/19 06/28/19 Unknown cranberry 500 mg PO QAM 04/02/19 06/28/19 06/03/19 diclofenac sodium 75 mg PO QAM 04/02/19 06/28/19 06/03/19 meclizine 25 mg PO DAILY PRN 04/02/19 06/28/19 Unknown vitamins A,C,H-grhv-uflamb 1 tab PO BIDM 04/02/19 06/28/19 06/03/19 [PreserVision AREDS] omega-3s 667 nr-xtt-wac-fish 3 cap PO QAM cap 05/24/19 06/28/19 06/03/19 oil-vitamin D3 250 unit capsule lidocaine [Lidoderm] 1 patch TOP DAILY #15 ea 05/29/19 06/28/19 Unknown tramadol 50 mg PO Q6H PRN #20 tab 06/04/19 06/28/19 Unknown hydromorphone 2 mg tablet 2 - 4 mg PO Q6 PRN #30 tab 06/16/19 06/28/19 Unknown veizryg-pjfptyaieozhw-mktycyaj 1 tab PO Q6H PRN 06/24/19 06/28/19 Unknown [Pain Reliever (acetam-aspirin)] loratadine [Claritin] 10 mg PO QAM 06/24/19 06/28/19 Unknown fluconazole 200 mg tablet 200 mg PO DAILY #14 tab 06/28/19 06/28/19 Unknown Past Medical History Medical History Arthritis CAD (coronary artery disease) STENT X 1 (2001) S/P B/L TKA Enlarged prostate Banks catheter in place High cholesterol History of anesthesia reaction SLOW TO WAKE, BREATHING ISSUES, NAUSEA AND VOMITING History of IBS History of kidney stones ON URSODIAL History of myocardial infarction STENT X 1 (2001) S/P B/L TKA Stable; Has not had to use NTG since stent placement HTN (hypertension) Hx of deep venous thrombosis Hx of ulcerative colitis Ileostomy in place Neurogenic bladder HAS A CATHETER INPLACE Pre-diabetes Primary sclerosing cholangitis PVCs (premature ventricular contractions) Asymptomatic per patient Sciatica Vertigo Past Family History Family History Other Family history of breast cancer in mother Past Surgical History Surgical History History of appendectomy History of arthroplasty of right shoulder Right TSA= 05/24/16= Grade 1 view, MAC#4 at [facility] History of cholecystectomy History of colonoscopy History of ERCP History of exploratory laparotomy X2 "COMMON DUCT RECONSTRUCTION" History of hand surgery B/L THUMBS History of ileostomy X2 LAST 1998 History of total bilateral knee replacement Hx of bilateral cataract extraction Hx of cardiac cath 2002 [facility] - STENT X1 Social History Smoking Status: Never smoker Do You Dip or Chew Tobacco: No Hx Alcohol Use: Yes Alcohol type: wine alcohol intake frequency: a few times a week Hx Substance Use: No substance use type: does not use Testing Laboratory Results Blood Type O Positive 06/25/19 10:50 Antibody Screen POSITIVE A 06/25/19 10:50 Laboratory Tests 06/04/19 06/04/19 07:47 07:47 WBC 3.03 L Hgb 12.3 L Hct 36.6 L Plt Count 54 L Sodium 138 Potassium 4.2 Chloride 110 H Carbon Dioxide 21 BUN 11 Creatinine 0.97 Glucose 199 H Electrocardiogram Date: 06/04/19 Incomplete right bundle branch block Septal infarct Echocardiogram Date: 04/14/19 EF: 55 LV Function: dysfunctional RWMA: + hypokinetic (apical dyskenesia) Other Findings: + pertinent finding (apical thrombus) Other Testing Cardiology: cardiology following patient, feels that cardiac thrombus is a chronic finding. He is NOT anticoagulated as he requires frequent ERCP, which would necessitate stopping anticoagulation.
[~2019-07-05 09:04] MED LIST changes: -ACETAMINOPHEN 1,000 MG/100 ML VIAL IV ONE; -CEFAZOLIN 2000MG 2,000 MG/15 ML SYR IV SCH; +GENTAMICIN SULFATE 240 MG in DEXTROSE 5% 100 ML IV SCH; +GENTAMICIN SULFATE 40 MG/ML 2 ML VIAL IV SCH; -SODIUM CHLORIDE 0.9% 1,000 ML IV SCH
--- NOTE | 2019-07-05 09:08 | History & Physical Bridge Note ---
Date of Service July 05, 2019 History & Physical Bridge Note I have examined the patient, reviewed the History & Physical and in the interval since the performance of the History & Physical I have noted the following changes of clinical significance: no changes noted
[2019-07-05] MEDS ORDERED: ePHEDrine sulfate 50 MG/ML AMP IV PRN (09:33)
[2019-07-05] MEDS ORDERED: PHENYLEPHRINE 100MCG/ML 5ML SYR IV PRN (09:33)
[2019-07-05] MEDS ORDERED: ATROPINE SULFATE 0.1 MG/ML 10ML SYR IV PRN (09:33)
[2019-07-05] MEDS ORDERED: HYDROmorphone INJ 1 MG/ML SYRINGE IV PRN (09:33)
[2019-07-05] MEDS ORDERED: ONDANSETRON INJ 2 MG/ML 2 ML VIAL IV PRN ×2 (09:33→12:35)
[2019-07-05] MEDS ORDERED: LABETALOL HCL IV 5 MG/ML 20ML IV PRN (09:33)
[2019-07-05] MEDS ORDERED: fentaNYL citrate 100 MCG/2 ML VIAL IV PRN (09:33)
[2019-07-05] MEDS ORDERED: ONDANSETRON INJ 2 MG/ML 2 ML VIAL ONE (09:37)
[2019-07-05] MEDS ORDERED: MIDAZOLAM HCL 1 MG/ML 2ML VIAL ONE (09:37)
[2019-07-05] MEDS ORDERED: LIDOCAINE HCL 2% 2 ML VIAL/AMP(20MG/ML) INFIL ONE (09:37)
[2019-07-05] MEDS ORDERED: PROPOFOL IV EMULSION 10 MG/ML 20 ML VIAL IV ONE ×4 (09:37→11:35)
[2019-07-05] MEDS ORDERED: DEXAMETHASONE SOD INJ 4 MG/ML VIAL ONE (09:37)
[2019-07-05] MEDS ORDERED: fentaNYL citrate 100 MCG/2 ML VIAL ONE (09:38)
[2019-07-05 09:44] LABS: Hematocrit (blood only) 38.8 % (42-52); Hemoglobin 13.3 g/dL (14.0-18.0); Mean Corpuscular Hemoglobin 34.7 pg (25-34); Mean Corpuscular Volume 101.3 fL (80-100); RDW Coefficient of Variation 15.2 % (11.5-14.5); RDW Standard Deviation 55.7 fL (36.4-46.3); Red Blood Count 3.83 M/uL (4.7-6.1); White Blood Count 4.51 K/uL (4.8-10.8)
[2019-07-05 10:13] LABS: Mean Corpuscular Hgb Conc 34.3 g/dL (32-36); Mean Platelet Volume 11.6 fL (7.4-10.4); Platelet Count 59 K/uL (130-400)
[2019-07-05 10:15] LABS: Basophils # (auto) 0.02 K/uL (0-0.2); Basophils % (auto) 0.4 %; Eosinophils # (auto) 0.28 K/uL (0-0.5); Eosinophils % (auto) 6.2 %; Immature Granulocytes # (auto) 0.02 K/uL (0.00-0.02); Immature Granulocytes % (auto) 0.4 %; Lymphocytes # (auto) 0.83 K/uL (1.2-3.4); Lymphocytes % (auto) 18.4 %; Monocytes # (auto) 0.38 K/uL (0.11-0.59); Monocytes % (auto) 8.4 %; Neutrophils # (auto) 2.98 K/uL (1.4-6.5); Neutrophils % (auto) 66.2 %
--- NOTE | 2019-07-05 12:07 | Operative Report ---
PG Post Operative Report Pre & Post Diagnosis Operation Date: 07/05/19 10:35 Pre-Op Diagnosis: Bladder Stone; Benign Prostatic Hyperplasia Post-Op Diagnosis: Bladder Stone; Benign Prostatic Hyperplasia I identified the patient and participated in the time-out.: Yes Procedure Operation Date: 07/05/19 10:35 Actual Procedures p Cystoscopy, Transurethral Resection Prostate(Not Applicable) - Adriano Silva DO s Cystolithopaxy Of Bladder Stone, Fragmentation and Removal - Adriano Silva DO Surgeon Adriano Silva, II, DO Interior Decorator None Estimated Blood Loss 10 Findings Consistent with Post-Op Diagnosis Large Prostate with obstruction. Large bladder stone approx 5.7 cm in size. Specimens Prostate adenoma. Drains 24Fr 3-way Catheter Anesthesia Type General Complications none Disposition Disposition: Recovery Room Indications Patient with obstruction due to prostate enlargement. Risks and benefits discussed at length. Description of Procedure Patient was consented and brought back to the operating room. Patient was placed under anesthesia in the supine position and moved to the dorsal lithotomy position. Patient was prepped and draped in the regular sterile fashion. A time out was completed. A 30degree Cystoscope was placed into the bladder and the entire bladder was examined. The UO's were identified as well as the bladder neck, trigone, dome, and the other important landmarks. Severe diverticulum were noted and a very large jagged bladder stone in the base of the bladder. The prostatic urethra and large lobes/adenoma was assessed and the veru and bladder neck identified and area/size was assessed. The resection scope was placed and the fine bipolar loop was selected. Starting at the 5 and 7 o'clock positions, a channel was created from bladder neck to the veru. The lateral edges were further resected to approx the 3 and 9 oclock position. This allowed a good channel to allow treatment of the stone. The 1000 micron laser fiber was selected and the stone was pulverized to dust and small fragments. The Specimen was removed and sent for analysis. The TURP resection chips and the stone fragments were sent for analysis separately. The resection bed and any bleeding areas were fulgurated/cauterized and the entire area inspected. All bleeding was controlled. The bladder was inspected a final time. The bladder was emptied and irrigated. All specimen and debris was removed. The scope was removed with the bladder partially full. A catheter was placed and balloon elevated. This was easily irrigated. The patient was cleaned, aroused from anesthesia, and transferred to the pacu in stable condition having tolerated the procedure well with no complications. I was present and participated in all aspects of the procedure. The patient will be monitored in the PACU until transferred. I attest to the content of the Intraoperative Record and any orders documented therein. Any exceptions are noted below.
[2019-07-05] MEDS ORDERED: MoRPHine SULFATE 2 MG/ML CARP IV PRN (12:35)
[2019-07-05 12:54] LABS: Hematocrit (blood only) 41.3 % (42-52); Hemoglobin 14.1 g/dL (14.0-18.0); Mean Corpuscular Hemoglobin 34.8 pg (25-34); Mean Corpuscular Hgb Conc 34.1 g/dL (32-36); RDW Coefficient of Variation 15.2 % (11.5-14.5); Red Blood Count 4.05 M/uL (4.7-6.1); White Blood Count 6.89 K/uL (4.8-10.8)
[2019-07-05 12:55] LABS: Mean Platelet Volume 11.9 fL (7.4-10.4); Platelet Count 70 K/uL (130-400)
[2019-07-05 13:11] LABS: Albumin Level 3.1 gm/dl (3.4-5.0); BUN Creatinine Ratio 20.2 (10-20); Creatinine Clr Calc Pharmacy 73.2 ml/min; Est GFR (African American) 97.6; Est GFR (Non-African American) 84.2; Potassium 4.1 mmol/L (3.5-5.1)
[2019-07-05 13:13] LABS: Albumin Globulin Ratio 0.9 (0.9-2); Bilirubin,Total 0.9 mg/dl (0.2-1); Globulin 3.5 gm/dl (2.5-4.0); Total Protein 6.6 gm/dl (6.4-8.2)
[2019-07-05 13:39] LABS: Basophils # (auto) 0.01 K/uL (0-0.2); Basophils % (auto) 0.1 %; Eosinophils # (auto) 0.19 K/uL (0-0.5); Eosinophils % (auto) 2.8 %; Immature Granulocytes # (auto) 0.02 K/uL (0.00-0.02); Immature Granulocytes % (auto) 0.3 %; Lymphocytes # (auto) 1.14 K/uL (1.2-3.4); Lymphocytes % (auto) 16.5 %; Monocytes # (auto) 0.09 K/uL (0.11-0.59); Monocytes % (auto) 1.3 %; Neutrophils # (auto) 5.44 K/uL (1.4-6.5)
--- NOTE | 2019-07-05 13:47 | Communication Note ---
Date of Service: July 05, 2019 The patient underwent a urologic procedure under MAC sedation. He was noted to cough near the end of the procedure and some bile was suctioned out but he did not appear to aspirate as per the COLOR WORKER. In recovery the patient's SpO2 is in the mid 90s on 4 L NC. His lungs are clear to auscultation. He occasionally coughs up green sputum. The patient's temperature is low but is other vital signs are stable. Dr. Piña was made aware and will sign the patient out when his temperature comes up. The patient will have continuous pulse oximetry and inc entive spirometry every hour while awake.
--- NOTE | 2019-07-05 14:04 | Anesthesiology Progress Note ---
Date of Service July 05, 2019 Anesthesia Post Procedure Vital Signs Vital Signs: Temp Pulse Pulse Resp BP BP Pulse Ox 07/05/19 13:50 96.8 F L 70 17 116/68 92 07/05/19 13:40 71 16 109/63 93 07/05/19 13:30 70 18 115/64 94 07/05/19 13:20 69 20 116/66 95 07/05/19 13:10 71 23 120/64 96 07/05/19 13:00 72 21 124/74 92 07/05/19 12:50 70 19 126/75 98 07/05/19 12:40 72 19 135/76 95 07/05/19 12:30 70 18 131/75 92 07/05/19 12:20 72 19 129/77 91 07/05/19 12:14 96.4 F L 73 21 124/77 91 07/05/19 09:42 98.2 F 61 20 150/79 H 95 Pain Intensity Right Lower Leg: Pain Intensity: 6 Lower Abdomen: Pain Intensity: 0 Transfer of Care Handoff Completed per policy Notes Mental Status: alert / awake / arousable and participated in evaluation Patient Amnestic to Procedure: Yes Nausea / Vomiting: adequately controlled Pain: adequately controlled Airway Patency, RR, SpO2: stable & adequate BP & HR: stable & adequate Hydration State: stable & adequate Anesthetic Complications: no major complications apparent and Pt Satisfied with anesthetic care
[2019-07-05] MEDS: CEFAZOLIN 1000MG 1,000 MG/7.5 ML SYR IV SCH (15:54)
[2019-07-05] MEDS: SODIUM CHLORIDE 0.9% 1000ML 1,000 ML IV SCH ×2 (15:54→18:43)
[2019-07-05] MEDS ORDERED: ACETAMINOPHEN 500 MG TAB PO PRN (17:27)
--- NOTE | 2019-07-05 20:17 | Communication Note ---
Date of Service: July 05, 2019 Pt had TURP w/Gen. anesthesia.There was a question of aspiration intra-op. I have seen this pt at the request of Dr Alexander Thompson.Pt is sitting up in bed , A & O;he does not appear to be in any distress, cardiopulmonary tay; He is receiving N/C at 4 L/M;His SPO2's are 99%.His lungs are clear bilaterally upon auscultation. I do not believe any intervention is warranted at this time.
[2019-07-05] MEDS: DOCUSATE SODIUM 100 MG CAP PO SCH (20:52)
[2019-07-06] MEDS: CEFAZOLIN 1000MG 1,000 MG/7.5 ML SYR IV SCH ×2 (00:23→07:56)
[2019-07-06] MEDS: SODIUM CHLORIDE 0.9% 1000ML 1,000 ML IV SCH (03:58)
[2019-07-06] MEDS: DOCUSATE SODIUM 100 MG CAP PO SCH (08:20)
--- NOTE | 2019-07-06 08:20 | Anesthesiology Progress Note ---
Date of Service July 06, 2019 Anesthesia Post Procedure Vital Signs Vital Signs: Temp Pulse Pulse Pulse Resp BP BP 07/06/19 07:19 36.4 C L 79 14 128/58 L 07/06/19 03:35 36.3 C L 80 16 134/78 07/05/19 23:19 36.5 C 85 18 113/70 07/05/19 21:30 16 07/05/19 17:36 36.9 C 100 H 16 101/64 07/05/19 16:28 36.9 C 102 H 16 113/71 07/05/19 15:36 36.3 C L 90 16 108/54 L 07/05/19 15:07 37.5 C 89 20 128/74 07/05/19 14:35 36.3 C L 76 15 119/57 L 07/05/19 14:20 72 18 117/62 07/05/19 14:10 73 21 101/60 07/05/19 14:00 36.3 C L 70 21 104/63 07/05/19 13:50 36.0 C L 70 17 116/68 07/05/19 13:40 71 16 109/63 07/05/19 13:30 70 18 115/64 07/05/19 13:20 69 20 116/66 07/05/19 13:10 71 23 120/64 07/05/19 13:00 72 21 124/74 07/05/19 12:50 70 19 126/75 07/05/19 12:40 72 19 135/76 07/05/19 12:30 70 18 131/75 07/05/19 12:20 72 19 129/77 07/05/19 12:14 35.8 C L 73 21 124/77 07/05/19 09:42 36.8 C 61 20 150/79 H Pulse Ox 07/06/19 07:19 94 07/06/19 03:35 94 07/05/19 23:19 92 07/05/19 21:30 89 L 07/05/19 17:36 90 07/05/19 16:28 90 07/05/19 15:36 93 07/05/19 15:07 97 07/05/19 14:35 93 07/05/19 14:20 92 07/05/19 14:10 91 07/05/19 14:00 91 07/05/19 13:50 92 07/05/19 13:40 93 07/05/19 13:30 94 07/05/19 13:20 95 07/05/19 13:10 96 07/05/19 13:00 92 07/05/19 12:50 98 07/05/19 12:40 95 07/05/19 12:30 92 07/05/19 12:20 91 07/05/19 12:14 91 07/05/19 09:42 95 Pain Intensity Right Lower Leg: Pain Intensity: 6 Lower Abdomen: Pain Intensity: 4 Notes Mental Status: alert / awake / arousable and participated in evaluation Patient Amnestic to Procedure: Yes Nausea / Vomiting: adequately controlled Pain: adequately controlled Airway Patency, RR, SpO2: stable & adequate BP & HR: stable & adequate Hydration State: stable & adequate Anesthetic Complications: no major complications apparent and Pt Satisfied with anesthetic care
--- NOTE | 2019-07-06 08:24 | Urology Progress Note ---
Date of Service July 06, 2019 Assessment & Plan (1) Bladder stone: (2) Recurrent UTI (urinary tract infection): 79yo M s/p TUR, cystolithopaxy CBI clamped approx 8am, okay to take down approx 10AM if no return of major bleeding Continue to wean O2 Encourage ambulation and use of IS Increase diet HL IVF's Plan to discharge after lunch if continues to progress and able to wean off O2. Discharge instructions reviewed, pt lives locally. Subjective 79yo M POD #1 s/p TUR, cystolithopaxy Mild coughing immediately post procedure, no aspiration per anesthesia. Pt initially on 4LNC post operatively, now weaning to 2LNC this AM. Pt denies SOB, cough or any discomfort. Able to ambulate lightly last evening. Tolerating clears. Per nursing notes, pt had brief episode of confusion last evening but now mentating well. CBI running at slow rate, draining clear urine. Labs reviewed - plt count improved this AM. Review of Systems Review of Systems: All systems reviewed & are unremarkable except as noted in HPI & below Physical Exam Physical Exam: A&Ox3 Resp rate reg - 2lnc intact 3-way cath intact. CBI clamped - clear yellow UO ostomy intact Results & Data Vital Signs (Past 12 Hours) Vital Signs Temp Pulse Resp BP Pulse Ox 07/06/19 07:19 36.4 C L 79 14 128/58 L 94 07/06/19 03:35 36.3 C L 80 16 134/78 94 07/05/19 23:19 36.5 C 85 18 113/70 92 07/05/19 21:30 16 89 L PG Care Time/CCT Total # of Minutes Spent Total Time Spent with Patient: Total time spent is greater than 50% in coordination of care (as documented) at patient's floor/unit and/or counseling patient:
--- NOTE | 2019-07-06 13:43 | Discharge Summary ---
Date of Service July 06, 2019 Admission HPI Per Admitting Provider see H&p Admission Exam Per Admitting Provider see H&P Principal Diagnosis BPH, bladder stone Discharge Exam Neck normal visual inspection Cardiovascular Rate/Rhythm: regular rate and regular rhythm Musculoskeletal Spine: no pain with cervical ROM Neurologic moves all extremities Psychiatric Orientation: alert and oriented x 3 Genitourinary lama intact Discharge Data Allergies Allergy/AdvReac Type Severity Reaction Status Date / Time Egg Derived Allergy Intermediate RASH WITH Verified 07/05/19 09:27 LARGE QUANTITIES pollen extracts Allergy Intermediate ITCHY Verified 07/05/19 09:27 EYES, SNEEZING, CONGESTION metformin Allergy Unknown GI ISSUES Verified 07/05/19 09:27 codeine AdvReac Intermediate N/V, Verified 07/05/19 09:27 HYPOTENSTION fentanyl AdvReac Intermediate EXTREME Verified 07/05/19 09:27 NAUSEA; BP DROPS meperidine AdvReac Intermediate N/V, Verified 07/05/19 09:27 HYPOTENSTION morphine AdvReac Intermediate N/V, Verified 07/05/19 09:27 HYPOTENSTION Flu Virus Vaccine Allergy Unknown AVOIDS DUE Uncoded 07/05/19 09:27 TO EGG ALLERGY NARCOTICS AdvReac Intermediate N/V, Uncoded 07/05/19 09:27 HYPOTENSTION Procedures Performed Operation Date: 07/05/19 10:35 Actual Procedures p Cystoscopy, Transurethral Resection Prostate(Not Applicable) - Adriano Silva DO s Cystolithopaxy Of Bladder Stone, Fragmentation and Removal - Adriano Silva DO Hospital Course (1) Recurrent UTI (urinary tract infection): 79yo M admitted for planned TUR, cystolithopaxy with Dr Silva. Kept overnight for observation due to risk of bleeding. Pt tolerated procedure well with no complications. O2 weaned post operatively. Discharged home with appropriate antibiotics and instructions. CBI clamped approx 8am, okay to take down approx 10AM if no return of major bleeding Continue to wean O2 Encourage ambulation and use of IS Increase diet HL IVF's Total Time Total Time Spent Total Time Spent (In Minutes): 15 Total Time Includes: Examination of the Patient, Discharge Planning, Medication Reconciliation and Communication With Other Providers Discharge Plan Discharge Items Patient Disposition: Home - Self-Care Reason For Visit: Bladder Stone; Benign Prostatic Hyperplasia Discharge Diagnosis: Same Condition on Discharge: Good Activity: Resume your previous activity Lifting: No more than 25 pounds Bathing: No limitations Sexual Activity: Wait until after follow-up appointment Exercise/Sports: Wait until after follow-up appointment Non-emergency contact: Urologist Call non-emergency contact if: you have any medication questions, your symptoms worsen, your pain is not controlled, your pain is worsening, your pain is unusual for you, your pain is concerning for you, you have a fever and your temperature is above 101.5 Follow-up/Referrals: Russ Allison MD [Physician] - 07/15/19 10:10 am (Appointment with Dr. Allison and possible catheter removal to follow) Tom Bucio MD [Primary Care Provider] - Diet: Regular Addtl Attending Provider Instructions: Please take all medications as prescribed and keep all follow-ups as scheduled. Please call our office at [phone] with any questions, concerns or need to reschedule appointments for any reason. We are happy to assist you. Tips for your recovery at home: Dont be alarmed by brownish or reddish blood or clots in your urine. This is a result of the procedure. This may occur off and on for weeks to months after the procedure but should continue to improve. Drink plenty of fluids during the day (enough to keep your urine very light colored). This will help keep a healthy flow of urine. Do not lift >25 lbs until your followup Avoid constipation. Please use a stool softener (Colace) for the first two weeks after your procedure Be sure to finish the antibiotics as prescribed. If you go home with a catheter, please wash tubing where it enters your body twice daily with mild soap (Dove or Dial). Once your catheter is removed, expect some blood in your urine and some burning when you urinate. You should have an appointment to have this removed, if you do not please call our office to arrange. When to call [facility] at [phone]: Your urine contains heavy blood clots You are constantly leaking urine Fever of 101F or higher, chills, nausea, or vomiting Your pain is not relieved with medication Pending Studies at Discharge: No Stand-Alone Forms: [facility], Opioid Pain Management Medications and DC Order Prescriptions: New oxycodone-acetaminophen [Percocet] 7.5-325 mg tablet 1 tab PO Q8H PRN (Reason: pain) Qty: 14 RF: 0 ciprofloxacin HCl 500 mg tablet 500 mg PO BID 3 Days Qty: 6 RF: 0 docusate sodium [Colace] 100 mg capsule 100 mg PO BID Qty: 60 RF: 0 Continued metoprolol tartrate 50 mg tablet 50 mg PO QDL RF: 0 metoprolol tartrate 50 mg tablet 75 mg PO HS Qty: 135 RF: 3 hydromorphone 2 mg tablet 2 - 4 mg PO Q6 PRN (Reason: pain) Qty: 30 RF: 0 fluconazole [Diflucan] 200 mg tablet 200 mg PO DAILY Qty: 14 RF: 0 folic acid 1 mg tablet 1 mg PO QDL RF: 0 tramadol 50 mg tablet 50 mg PO Q6H PRN (Reason: pain) Qty: 20 RF: 0 alendronate 70 mg Tablet 70 mg PO WK RF: 0 misoprostol 200 mcg Tablet 200 mcg PO QAM RF: 0 ursodiol 300 mg Capsule 300 mg PO BIDM RF: 0 allopurinol 300 mg Tablet 300 mg PO QAM RF: 0 finasteride 5 mg Tablet 5 mg PO QAM RF: 0 alfuzosin 10 mg Tablet Extended Release 24 Hr 10 mg PO QDD RF: 0 Eye Drops Advanced Relief 0.05-0.1-1-1 % Drops 2 drp OPB AMHS RF: 0 omeprazole 20 mg Tablet,Delayed Release (Dr/Ec) 20 mg PO QAM RF: 0 Caltrate 600 plus D 600 mg (1,500 mg)-800 unit Tablet,Chewable 1 tab PO QDL RF: 0 [place] 3-6-9 1,200 mg Capsule 1 cap PO QAM RF: 0 magnesium oxide 400 mg magnesium Tablet 400 mg PO QAM RF: 0 rosuvastatin 10 mg Tablet 10 mg PO HS RF: 0 Dry Eye [place] Benefits 667-250 mg-unit capsule 3 cap PO QAM RF: 0 aspirin 81 mg Tablet,Delayed Release (Dr/Ec) 81 mg PO HS RF: 0 ciprofloxacin HCl [Cipro] 500 mg Tablet 500 mg PO DIRECTED PRN (Reason: PSC) RF: 0 aspirin 325 mg Tablet,Delayed Release (Dr/Ec) 325 mg PO DAILY PRN (Reason: Migraine Headache) RF: 0 meclizine 25 mg Tablet 25 mg PO DAILY PRN (Reason: Vertigo) RF: 0 diclofenac sodium 75 mg Tablet,Delayed Release (Dr/Ec) 75 mg PO QAM RF: 0 cranberry 500 mg Capsule 500 mg PO QAM RF: 0 PreserVision AREDS 7,160-113-100 [id number] Tablet 1 tab PO BIDM RF: 0 lidocaine [Lidoderm] 5 % adhesive patch,medicated 1 patch TOP DAILY Qty: 15 RF: 0 Pain Reliever (acetam-aspirin) 250-250-65 mg Tablet 1 tab PO Q6H PRN (Reason: Pain) RF: 0 loratadine [Claritin] 10 mg Tablet 10 mg PO QAM RF: 0 Discharge Orders: Discharge Order (Routine); Ordered 07/06/19 Ordered By: Jocelin Brandon Admission Data Admit Date/Time: 07/05/19 12:35 Attending Provider: Adriano Silva Admit Provider: Adriano Silva Primary Care Provider: Tom Bucio Other Interventions: Discharge Summary Assessment (RN) Last Done: 07/06/19 11:11
[2019-07-09 23:57] LABS: Component 2 DNR
== END 2019-07-06 14:40 | disposition home or self-care (01) ==
LOC: 3N 09:04 → ASU 09:04

== ENCOUNTER 2020-10-02 17:39 | Inpatient (IN) ==
[2020-10-02] MEDS ORDERED: GLUCOSE 10 TABS/TUBE PO PRN (17:52)
[2020-10-02] MEDS ORDERED: CARBOHYDRATES FOR HYPOGLYCEMIA PO PRN (17:52)
[2020-10-02] MEDS ORDERED: GLUCOSE 40% GEL 15 GM TUBE PO PRN (17:52)
[2020-10-02] MEDS ORDERED: GLUCAGON FOR INJ 1 MG VIAL SQ PRN (17:52)
[2020-10-02] MEDS ORDERED: DEXTROSE 50% 50 ML SYRINGE IV PRN (17:52)
[2020-10-02] MEDS ORDERED: PHARMACY GLYCEMIC MGMT CONSULT PRN (18:10)
[2020-10-02] MEDS ORDERED: SODIUM CHLORIDE 0.9% 1000ML 500 ML IV ONE (18:15)
--- NOTE | 2020-10-02 19:10 | History & Physical Report ---
Date of Service October 02, 2020 Assessment & Plan (1) Infection of prosthetic shoulder joint: Currently with inflammatory tracking down his right arm although no definitive cellulitis. Empirically treat with vancomycin and Zosyn since aspiration already performed in office. Follow-up aspiration and blood cultures Consult orthopedics for washout tomorrow (2) Acute dehydration: Elevated BUN. Hydrate with IV NSS overnight Repeat BMP in AM (3) Hyponatremia: Corrected for glucose 135 therefore should just improve with insulin management and NSS as above. Repeat BMP in AM (4) Type 2 diabetes mellitus: On no outpatient medication for this as HbA1c < 7 per patient recollection. Repeat HbA1c with a.m. labs. Consult pharmacy for glycemic control (5) Thrombocytopenia due to hypersplenism: Appears to be stable. Will repeat CBC in a.m, if < 20 consider platelet transfusion prior to surgery. (6) Primary sclerosing cholangitis: Currently asymptomatic (7) BPH loc w/o ur obs/LUTS: Continue alfuzosin 10 mg p.o. every afternoon, (8) CAD (coronary artery disease): Hold aspirin. Restart for postoperatively depending on platelets and surgical recommendations. Continue metoprolol tartrate 50 mg p.o. every morning, 75 mg every afternoon (9) Pulmonary nodule: Incidental pickup on chest x-ray. Follow-up with PCP as an outpatient. (10) DVT prophylaxis: SCDs. Chemical prophylaxis deferred on admission due to need for surgery and thrombocytopenia. Admission and Anticipated Discharge Date Admission Date: October 02, 2020 History of Present Illness Chief Complaint: Right shoulder pain and swelling Primary Care Provider: Tom Bucio MD Jordy Tesfaye is an 80 year old male medically complex patient who presents as a direct admission from orthopedic clinic earlier today due to 4 days history of increasing right shoulder pain, swelling and erythema in setting of prior shoulder replacement. He reports having an iron infusion on the left side 7 days ago. 4 days ago while doing some wood working his right arm was bothering him more than usual and movement was generally feeling more limited. The following day he woke up with his neck and shoulder much more stiff, due to concern for infection his advised him to start taking his ciprofloxacin (prescribed for primary sclerosing cholangitis). Over the past 2 days he has struggled to lift his right arm at all and his noticed it becoming more swollen. Yesterday she started to noticed erythema. Severity currently 2/10 at rest. Worse on shoulder movement. His called his orthopedic office today and after an emergent appointment, aspiration concerning for infection and pre-operative lab work it was recomme nded for direct admission. He denies any fevers or chills but has had multiple other infections in the past presenting in similar ways and generally does not mount a significant immune response. Allergies Allergy/AdvReac Type Severity Reaction Status Date / Time Egg Derived Allergy Intermediate RASH WITH Verified 10/02/20 14:49 LARGE QUANTITIES metformin Allergy Intermediate GI ISSUES Verified 10/02/20 14:49 pollen extracts Allergy Intermediate ITCHY Verified 10/02/20 14:49 EYES, SNEEZING, CONGESTION codeine AdvReac Intermediate N/V, Verified 10/02/20 14:49 HYPOTENSTION fentanyl AdvReac Intermediate EXTREME Verified 10/02/20 14:49 NAUSEA; BP DROPS meperidine AdvReac Intermediate N/V, Verified 10/02/20 14:49 HYPOTENSTION morphine AdvReac Intermediate N/V, Verified 10/02/20 14:49 HYPOTENSTION Flu Virus Vaccine Allergy Intermediate AVOIDS DUE Uncoded 10/02/20 14:49 TO EGG ALLERGY NARCOTICS AdvReac Intermediate N/V, Uncoded 10/02/20 14:49 HYPOTENSTION Home Medications Medication Instructions Recorded Confirmed Type Caltrate 600 plus D 1 tab PO QDL 09/29/18 10/02/20 History Eye Drops Advanced Relief 2 drp OPB AMHS 09/29/18 10/02/20 History [place] 3-6-9 1 cap PO QAM 09/29/18 10/02/20 History alendronate 70 mg PO WK 09/29/18 10/02/20 History alfuzosin 10 mg PO QPM 09/29/18 10/02/20 History allopurinol 300 mg PO QAM 09/29/18 10/02/20 History finasteride 5 mg PO QAM 09/29/18 10/02/20 History magnesium oxide 400 mg PO QAM 09/29/18 10/02/20 History misoprostol 200 mcg PO QAM 09/29/18 10/02/20 History omeprazole 20 mg PO QAM 09/29/18 10/02/20 History rosuvastatin 10 mg PO HS 09/29/18 10/02/20 History ursodiol 300 mg PO BIDM 09/29/18 10/02/20 History aspirin 81 mg PO HS 12/11/18 10/02/20 History folic acid 1 mg PO QDL 02/02/19 10/02/20 History metoprolol tartrate 50 mg tablet 50 mg PO QAM tab 03/30/19 10/02/20 History metoprolol tartrate 50 mg tablet 75 mg PO HS #135 tab 03/30/19 10/02/20 Rx PreserVision AREDS 1 tab PO BIDM 04/02/19 10/02/20 History aspirin 325 mg PO DAILY PRN 04/02/19 10/02/20 History ciprofloxacin HCl [Cipro] 500 mg PO BID 04/02/19 10/02/20 History cranberry 500 mg PO QAM 04/02/19 10/02/20 History diclofenac sodium 75 mg PO QAM 04/02/19 10/02/20 History meclizine 25 mg PO DAILY PRN 04/02/19 10/02/20 History omega-3s 667 [id number] 3 cap PO QAM cap 05/24/19 10/02/20 History oil-vitamin D3 250 unit capsule loratadine [Claritin] 10 mg PO QAM 06/24/19 10/02/20 History Past Med/Surg History Medical History Benign prostatic hyperplasia with urinary obstruction CAD (coronary artery disease) STENT X 1 (2001) AT 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 Aneurysm present since CA in 2001 per cardio Macular degeneration Neurogenic bladder NO DOS [employer] 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 PVCs (premature ventricular contractions) Asymptomatic per patient Sciatica TIA (transient ischemic attack) TIA vs complex migraine February 2019 Type 2 diabetes mellitus Surgical History History of anesthesia reaction SLOW TO WAKE, BREATHING ISSUES, NAUSEA AND VOMITING History of appendectomy History of arthroplasty of right shoulder Right TSA= 05/24/= Grade 1 view, MAC#4 at [facility], [place] History of cholecystectomy History of colonoscopy History of cystoscopy History of ERCP MULTIPLE History of exploratory laparotomy X2 "COMMON DUCT RECONSTRUCTION" History of hand surgery RT/LEFT THUMBS History of lumbar laminectomy History of total bilateral knee replacement Hx of bilateral cataract extraction Family History Father Myocardial infarction Family/Other Hypertension Nephrolithiasis Sister FH: ovarian cancer Other Family history of breast cancer in mother Social History Smoking Status: Never smoker Second Hand Exposure: Yes ( A CHILD); Hx Alcohol Use: Yes Alcohol type: wine Hx Substance Use: No Preferred Language: Barbadian Communication Ability: Effective Pharmacy Operations Specialist Required: No Beliefs That Will Affect Care: None marital status: Current Living Situation: Spouse Other Information That Helps Us Care for You: No Feels Safe at Home: Yes Safety Concerns: Feels Safe At This Time Assistive Devices: Glasses Assistive Devices Comment: reading Review of Systems Review of Systems: All systems reviewed & are unremarkable except as noted in HPI & below Physical Exam Constitutional: well developed and well nourished; no acute distress Eyes: + anicteric sclerae; normal pupil size ENMT: external ear and nose normal, oropharynx normal Respiratory: normal respiratory effort, lungs clear to auscultation Cardiovascular: RRR, no murmur, no edema Gastrointestinal (Abdomen): normal bowel sounds, soft, nontender, no hepatosplenomegaly Musculoskeletal: Shoulder: + shoulder abnormal to inspection, + effusion, + skin erythema (Anterior shoulder tracking anteriorly down to elbow) and + limited ROM (due to pain) Skin: + erythema (tracking as above) Neurologic: moves all extremities and awake; not confused Psychiatric: A+Ox3, euthymic affect Genitourinary: no CVA tenderness Results & Data Results & Data ([facility]) Vital Signs (Past 12 Hours) Vital Signs Temp Pulse Resp BP Pulse Ox 10/02/20 18:19 36.9 C 77 18 123/64 94 Diagnostic Findings XR chest Pre-admission PA/Lat IMPRESSION: 1. Cardiomegaly without acute process. 2. Mild linear subsegmental bibasilar atelectasis/scarring. 3. 10 mm nodular opacity of the lateral left lung base is suggestive of scarring versus pulmonary nodule. This could be evaluated with a nonemergent follow-up chest CT. ECG Indication: other (Pre-op) Rhythm: normal sinus Findings: + LAFB and + RBBB (incomplete); no acute ischemic change Comparison ECG Date: from (June 04, 2019) Change: no significant change Code Status & VTE Plan Code Status Full VTE Prophylaxis Plan VTE Prophylaxis will be ordered: Yes Reason for no VTE drug order: Treatment not indicated PG Care Time/CCT Total # of Minutes Spent Total Time Spent with Patient: Total time spent is greater than 50% in pizza cook rdination of care (as documented) at patient's floor/unit and/or counseling patient: Coding Level of Care Code 66733 Initial Inpt Care Lvl 3 Diagnoses Infection of prosthetic shoulder joint T84.59XA; Z96.619 Encounter type: initial encounter Acute dehydration E86.0 Hyponatremia E87.1 Type 2 diabetes mellitus E11.65 Diabetes mellitus complication status: with hyperglycemia Diabetes mellitus prison insulin use: without prison use Thrombocytopenia due to hypersplenism D69.59 Primary sclerosing cholangitis K83.0 BPH loc w/o ur obs/LUTS N40.0 CAD (coronary artery disease) I25.10 Pulmonary nodule R91.1 DVT prophylaxis Z29.9 (1) Infection of prosthetic shoulder joint Encounter type: initial encounter Qualified Code(s): T84.59XA - Infection and inflammatory reaction due to other internal joint prosthesis, initial encounter; Z96.619 - Presence of unspecified artificial shoulder joint (2) Type 2 diabetes mellitus Diabetes mellitus complication status: with hyperglycemia Diabetes mellitus prison insulin use: without prison use Qualified Code(s): E11.65 - Type 2 diabetes mellitus with hyperglycemia
[2020-10-02] MEDS ORDERED: VANCOMYCIN CONSULT ACTIVE PRN (19:15)
[2020-10-02] MEDS ORDERED: PIPERACILL/TAZOBAC CONSULT ACTIVE PRN (19:15)
[2020-10-02] MEDS ORDERED: PIPERACILLIN/TAZOBACTAM 3.375 GM in DEXTROSE 5% 100 ML IV STA (19:18)
[2020-10-02] MEDS ORDERED: VANCOMYCIN HCL 2,000 MG in SODIUM CHLORIDE 0.9% 500 ML IV ONE (19:30)
--- NOTE | 2020-10-02 19:44 | Pharmacy Report ---
Pharmacy Glycemic Short Note 2 - Date of Service October 02, 2020 - Glycemic Short BSG Results (Last 24 hours): 10/02/20 18:37 POC Glucose 187 H OUTPATIENT ANTIDIABETIC REGIMEN: * Unknown * HbA1c = pending ASSESSMENT: * 80 yo M admitted this evening secondary to a prosthetic shoulder infection. Pharmacy is consulted for assistance with inpatient glycemic management. * BSG was 187 mg/dL upon transfer to floor. No records of outpatient regimen and last A1c was in 2017. * Will start patient on Lantus and Novolog based on a weight and stress of 2. No further Lantus will be ordered as patient will be NPO after midnight. PLAN FOR INPATIENT GLYCEMIC CONTROL: * Basal insulin * Lantus 14 units SQ x 1 * Bolus insulin * NovoLog per scale ACHS or Q6hrs while NPO * Goal Range: Low 110 mg/dL - High 140 mg/dL * Correction Factor: 30 mg/dL/unit * Nutritional / Prandial insulin per carb ratio of 1 unit per 10 grams CHO consumed PLAN FOR DISCHARGE: * To be determined
[2020-10-02] MEDS ORDERED: INSULIN GLARGINE SOLOSTAR 100 UNITS/ML 3 ML PEN SC ONE (19:45)
[2020-10-02] MEDS ORDERED: ASPIRIN 81 MG ECTAB PO SCH (21:00)
[2020-10-02] MEDS ORDERED: INSULIN ASPART 100 UNITS/ML 3 ML PEN SC SCH (21:00)
[2020-10-02] MEDS: ALFUZOSIN HCL 10 MG TAB PO SCH (21:10)
[2020-10-02] MEDS: ursodioL 300 MG CAP PO SCH (21:11)
[2020-10-02] MEDS: ROSUVASTATIN CALCIUM 10 MG TAB PO SCH (21:11)
[2020-10-02] MEDS: METOPROLOL TARTRATE 25 MG TAB PO SCH (21:16)
[2020-10-02] MEDS: SODIUM CHLORIDE 0.9% 1000ML 1,000 ML IV SCH (21:37)
[2020-10-02] MEDS ORDERED: ALUMINUM/MAGNESIUM SUSP 30 ML UDC PO PRN (21:41)
[2020-10-02] MEDS ORDERED: ONDANSETRON INJ 2 MG/ML 2 ML VIAL IV PRN (21:41)
[2020-10-02] MEDS ORDERED: ACETAMINOPHEN 325 MG TAB PO PRN (21:41)
--- NOTE | 2020-10-02 22:06 | Pharmacy Report ---
Pharmacy Abx Dose Short Note - Date of Service October 02, 2020 - Assessment & Plan Assessment 80 year old M receiving IV Vancomycin and Zosyn for treatment of septic arthritis Day # 1 of antimicrobial therapy. * Most recent sCr = 1.23 mg/dL with estimated CrCl ~48 mL/min. Estimated pharmacokinetic parameters: * Ke ~0.044/hr, T1/2 ~15.75 hrs Plan Vancomycin * Give Vancomycin 2000mg (~25mg/kg) IV x 1 as a loading dose * Initiate Vancomycin 1250mg (~15mg/kg) IV q18 as maintenance regimen * Goal trough level for septic arthritis : 15 to 20 mcg/mL * Trough level ordered for: 10/04/20 @ 0930; this is an early level not reflective of steady state but want to check level early as Vancomycin pharmacokinetics unpredictable in elderly Zosyn * Give Zosyn 3.375g IV x 1 over 30 minutes as a loading dose, then initiate 3.375g IV q8 (extended infusion over 4 hours) for CrCl >20 mL/min Pharmacy will continue to follow and will adjust dose/frequency as necessary. Thank you.
[2020-10-03] MEDS: [UNRECOGNIZED DRUG - REMARK] SCH ×3 (00:52→20:16)
[2020-10-03 00:56] LABS: Influenza A virus by PCR Negative (Neg); Influenza B virus by PCR Negative (Neg); RSV by PCR Negative (Neg); SARS CoV2 RNA(COVID-19) InHosp NEGATIVE (Negative)
[2020-10-03] MEDS: PIPERACILLIN/TAZOBACTAM 3.375 GM in DEXTROSE 5% 100 ML IV SCH ×3 (01:41→17:52)
[2020-10-03] MEDS ORDERED: Nursing to Pharmacy Communication SCH ×2 (03:15→23:45)
[2020-10-03] MEDS: SODIUM CHLORIDE 0.9% 1000ML 1,000 ML IV SCH ×2 (05:31→14:01)
[2020-10-03] MEDS: INSULIN ASPART 100 UNITS/ML 3 ML PEN SC SCH ×4 (06:08→23:10)
--- NOTE | 2020-10-03 06:44 | Orthopedic Consultation ---
Date of Service October 03, 2020 Assessment & Plan (1) Infection of prosthetic shoulder joint: He is currently getting vancomycin and Zosyn. His hyperglycemia is stabilized. He will be n.p.o. today. We plan to take him to the operating room later today for an irrigation debridement of the right shoulder with possible removal of components and revision to reverse shoulder arthroplasty. He understands the risk, benefits, and alternatives to the procedure and is elected to proceed. Questions were answered at bedside today. Consents had been signed. The decision was made to proceed with surgery. History of Present Illness Reason for Consultation: Right shoulder periprosthetic joint infection. Requesting Physician: . Attending Physician: Shakeel Ryder MD Jordy is a pleasant 80-year-old male who underwent a right total shoulder arthroplasty in 2016. He did very well postoperatively. He has been pain-free with his shoulder up until this past week. He has been getting weekly iron infusions. He had an iron infusion last week and then several days later began having some right shoulder pain. This began about 4 days ago. The following day her shoulder pain became quite severe. He noticed some erythema and swelling of the shoulder. He was unable to forward elevate. He called the office and was seen as an emergency appointment. The right shoulder was aspirated in the office and there was mary pus. That was sent to labs. He was then sent over the hospital for preoperative lab work for an I&D of an acute hematogenous periprosthetic joint infection the following day. The initial labs came back as dehydration with thrombocytopenia and hyperglycemia with a glucose level 256. I talked to the hospitalist personally and they were gracious enough to admit him as a direct admit for preoperative stabilization. He was admitted to the medicine service yesterday. He has been receiving fluids as well as insulin. His thrombocytopenia seems stable. He was also started on vancomycin and Zosyn.. Allergies Allergy/AdvReac Type Severity Reaction Status Date / Time Egg Derived Allergy Intermediate RASH WITH Verified 10/02/20 14:49 LARGE QUANTITIES metformin Allergy Intermediate GI ISSUES Verified 10/02/20 14:49 pollen extracts Allergy Intermediate ITCHY Verified 10/02/20 14:49 EYES, SNEEZING, CONGESTION codeine AdvReac Intermediate N/V, Verified 10/02/20 14:49 HYPOTENSTION fentanyl AdvReac Intermediate EXTREME Verified 10/02/20 14:49 NAUSEA; BP DROPS meperidine AdvReac Intermediate N/V, Verified 10/02/20 14:49 HYPOTENSTION morphine AdvReac Intermediate N/V, Verified 10/02/20 14:49 HYPOTENSTION Flu Virus Vaccine Allergy Intermediate AVOIDS DUE Uncoded 10/02/20 14:49 TO EGG ALLERGY NARCOTICS AdvReac Intermediate N/V, Uncoded 10/02/20 14:49 HYPOTENSTION Home Medications Medication Instructions Recorded Confirmed Type Caltrate 600 plus D 1 tab PO QDL 09/29/18 10/02/20 History Eye Drops Advanced Relief 2 drp OPB AMHS 09/29/18 10/02/20 History [place] 3-6-9 1 cap PO QAM 09/29/18 10/02/20 History alendronate 70 mg PO WK 09/29/18 10/02/20 History alfuzosin 10 mg PO QPM 09/29/18 10/02/20 History allopurinol 300 mg PO QAM 09/29/18 10/02/20 History finasteride 5 mg PO QAM 09/29/18 10/02/20 History magnesium oxide 400 mg PO QAM 09/29/18 10/02/20 History misoprostol 200 mcg PO QAM 09/29/18 10/02/20 History omeprazole 20 mg PO QAM 09/29/18 10/02/20 History rosuvastatin 10 mg PO HS 09/29/18 10/02/20 History ursodiol 300 mg PO BIDM 09/29/18 10/02/20 History aspirin 81 mg PO HS 12/11/18 10/02/20 History folic acid 1 mg PO QDL 02/02/19 10/02/20 History metoprolol tartrate 50 mg tablet 50 mg PO QAM tab 03/30/19 10/02/20 History metoprolol tartrate 50 mg tablet 75 mg PO HS #135 tab 03/30/19 10/02/20 Rx PreserVision AREDS 1 tab PO BIDM 04/02/19 10/02/20 History aspirin 325 mg PO DAILY PRN 04/02/19 10/02/20 History ciprofloxacin HCl [Cipro] 500 mg PO BID 04/02/19 10/02/20 History cranberry 500 mg PO QAM 04/02/19 10/02/20 History diclofenac sodium 75 mg PO QAM 04/02/19 10/02/20 History meclizine 25 mg PO DAILY PRN 04/02/19 10/02/20 History omega-3s 667 [id number]-vzy-fish 3 cap PO QAM cap 05/24/19 10/02/20 History oil-vitamin D3 250 unit capsule loratadine [Claritin] 10 mg PO QAM 06/24/19 10/02/20 History Past Med/Surg History Medical History Benign prostatic hyperplasia with urinary obstruction CAD (coronary artery disease) STENT X 1 (2001) AT [facility] Enlarged prostate High cholesterol History of IBS History of kidney stones History of myocardial infarction STENT X 1 (2001) S/P B/L TKA Stable; Has not had to use NTG since stent placement HTN (hypertension) Hx of basal cell carcinoma Hx of deep venous thrombosis LLE "A LONG TIME AGO" Hx of ulcerative colitis S/p colectomy- ileostomy 1990 and 1994 Hx of vertigo Ileostomy in place Left lower lobe pneumonia 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 Aneurysm present since [place] in 2001 per cardio Macular degeneration Neurogenic bladder NO DOS SANTOS CATHETER 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 PVCs (premature ventricular contractions) Asymptomatic per patient Sciatica TIA (transient ischemic attack) TIA vs complex migraine February 2019 Type 2 diabetes mellitus Surgical History History of anesthesia reaction SLOW TO WAKE, BREATHING ISSUES, NAUSEA AND VOMITING History of appendectomy History of arthroplasty of right shoulder Right TSA= 05/24/16= Grade 1 view, MAC#4 at [facility] History of cholecystectomy History of colonoscopy History of cystoscopy History of ERCP MULTIPLE History of exploratory laparotomy X2 "COMMON DUCT RECONSTRUCTION" History of hand surgery RT/LEFT THUMBS History of lumbar laminectomy History of total bilateral knee replacement Hx of bilateral cataract extraction Family History Father Myocardial infarction Family/Other Hypertension Nephrolithiasis Sister FH: ovarian cancer Other Family history of breast cancer in mother Social History Smoking Status: Never smoker Second Hand Exposure: Yes ( A CHILD); Hx Alcohol Use: Yes Alcohol type: wine Hx Substance Use: No Preferred Language: Frisian Communication Ability: Effective 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 Physical Exam On physical examination of the right shoulder, there is a large anterior abscess. The erythema seems a little bit improved today from yesterday. I am unable to do any range of motion examination with his shoulder. Constitutional WD/WN, vitals as above Eyes PERRL, conjunctivae normal, anicteric sclerae ENMT external ear and nose normal, oropharynx normal Neck trachea midline, no thyromegaly Respiratory normal respiratory effort Cardiovascular RRR, no murmur, no edema Gastrointestinal (Abdomen) normal bowel sounds, soft, nontender, no hepatosplenomegaly Psychiatric A+Ox3, euthymic affect Results & Data Results & Data Laboratory Results . Diagnostic Findings X-rays of the right shoulder obtained in the office show a well-placed right total shoulder arthroplasty without any signs of loosening.. PG Care Time/CCT Total # of Minutes Spent Total Time Spent with Patient: Total time spent is greater than 50% in coordination of care (as documented) at patient's floor/unit and/or counseling patient: Coding Level of Care Code 12189 Inpt Consult Level 4 (57 - DECISION FOR SURGERY) Diagnoses Infection of prosthetic shoulder joint T84.59XA; Z96.619 Encounter type: initial encounter (1) Infection of prosthetic shoulder joint Encounter type: initial encounter Qualified Code(s): T84.59XA - Infection and inflammatory reaction due to other internal joint prosthesis, initial encounter; Z96.619 - Presence of unspecified artificial shoulder joint
[2020-10-03 07:07] LABS: Mean Corpuscular Hgb Conc 34.1 g/dL (32-36)
[2020-10-03 07:21] LABS: Hematocrit (blood only) 29.3 % (42-52); Mean Corpuscular Hemoglobin 31.6 pg (25-34); Mean Corpuscular Volume 92.7 fL (80-100); RDW Coefficient of Variation 18.8 % (11.5-14.5); RDW Standard Deviation 63.9 fL (36.4-46.3); Red Blood Count 3.16 M/uL (4.7-6.1)
[2020-10-03 07:30] LABS: Estimated Average Glucose 157 mg/dl; Hemoglobin A1C 7.1 % (4.5-5.6)
[2020-10-03 07:45] LABS: BUN Creatinine Ratio 30.4 (10-20); Calcium 8.6 mg/dl (8.5-10.1); Creatinine Clr Calc Pharmacy 59.2 ml/min; Est GFR (African American) 88.3; Est GFR (Non-African American) 76.2; Potassium 3.8 mmol/L (3.5-5.1)
[2020-10-03 07:57] LABS: Platelet Count 46 K/uL (130-400)
[2020-10-03 07:58] LABS: Eosinophils # (auto) 0.04 K/uL (0-0.5); Eosinophils % (auto) 0.7 %; Immature Granulocytes # (auto) 0.03 K/uL (0.00-0.02); Immature Granulocytes % (auto) 0.5 %; Lymphocytes # (auto) 0.41 K/uL (1.2-3.4); Lymphocytes % (auto) 6.9 %; Monocytes # (auto) 0.35 K/uL (0.11-0.59); Monocytes % (auto) 5.9 %; Neutrophils # (auto) 5.07 K/uL (1.4-6.5); Platelet Estimate Decreased (Normal)
--- NOTE | 2020-10-03 09:18 | Medical Student Progress Note ---
Date of Service October 03, 2020 Assessment & Plan (1) Infection of prosthetic shoulder joint: Inflammation is improving in the right arm. Still some swelling and erythema present. Aspiration culture grew gram negative bacilli. Blood cultures are pending. Treating with Zosyn. Discontinued Vancomycin. - De-escalate based on sensitivities. Incision and Drainage scheduled with Dr. Monet today. Encounter type: initial encounter Qualified Code(s): T84.59XA - Infection and inflammatory reaction due to other internal joint prosthesis, initial encounter; Z96.619 - Presence of unspecified artificial shoulder joint (2) Acute dehydration: Elevated BUN on admission (38) down to 28 after hydration with NSS overnight. Present on Admission?: Yes (3) Type 2 diabetes mellitus: Not taking any outpatient medications for diabetes. A1c today was 7.1%. Will start on Lantus and Novolog. Lantus not given overnight as patient was NPO after midnight. 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 Consider recent flare as possible source of bact eremia. (5) Thrombocytopenia: Appears to be stable. Coagulation studies are normal. Hold aspirin for surgery; restart post-op depending on platelets. Present on Admission?: Yes (6) BPH loc w/o ur obs/LUTS: Continue alfuzosin 10 mg PO QPM Present on Admission?: Yes (7) CAD (coronary artery disease): Hold aspirin. Continue metoprolol tartrate 50 mg PO QAM, 75 mg PO QPM Present on Admission?: Yes (8) DVT prophylaxis: SCDs. Admission and Anticipated Discharge Date Admission Date: October 02, 2020 Supervising Attestation I personally examined the patient and verified all [place] points of history and exam, discussed case, and agree with decision making with Alyson Cantu MS2 shoulder still hurts. not worse than yesterday, probably not better. redness better. had about 3-4 flare ups of cholangitis this year. hasn't had new urinary symptoms. has some on/off diarrhea but nothing really new and no abdominal pain vitals noted nad heent nc at mmm R shoulder resolving erythema very tender limited ROM due to pain and stiffness septic shoulder - gram neg - ?hematologic seeding from cholangitis. zosyn should cover, waiting on sensitivities. for washout today. ongoing supportive care Subjective Patient has no pain in the arm at rest. He has significant stiffness and decreased ROM of the shoulder. There is no numbness or tingling of the RUE. There is some erythema of the shoulder, which he notes has decreased since yesterday. Pain on palpation over the humeral head. Pruritus over the shoulder has resolved. He has had no fever, chills, SOB, chest pain, or difficulty breathing over the last day. He had been having some chills over the past two weeks. Patient notes ~3 recent flares of his sclerosing cholangitis in the past 4 months for which he takes ciprofloxacin PRN. Review of Systems Review of Systems: All systems reviewed & are unremarkable except as noted in HPI & below. Constitutional: no fever and no chills Respiratory: no cough, no chest congestion and no dyspnea Cardiovascular: no chest pain, no dyspnea, no syncope, no edema and no calf pain Gastrointestinal: no nausea and no vomiting Musculoskeletal: + swelling and + stiffness; no radicular pain and no deformity Integumentary: no yellowing of the skin Neurologic: no loss of sensation, no tingling, no paresthesia and no dizziness Physical Exam Constitutional: WD/WN, vitals as above well developed and well nourished; no acute distress Eyes: PERRL, conjunctivae normal, anicteric sclerae + anicteric sclerae ENMT: external ear and nose normal, oropharynx normal Neck: trachea midline, no thyromegaly Respiratory: normal respiratory effort, lungs clear to auscultation normal respiratory effort Auscultation: lungs clear to auscultation bilaterally Cardiovascular: RRR, no murmur, no edema Gastrointestinal (Abdomen): normal bowel sounds, soft, nontender, no hepatosplenomegaly Musculoskeletal: Shoulder: + shoulder abnormal to inspection, + effusion, + skin erythema (mild. noted to be improved from yesterday. ) and + limited ROM (due to pain) Pain on palpation of the humeral head. Skin: no rashes, warm and dry + erythema (tracking as above); no jaundice Neurologic: moves all extremities and awake; not confused Psychiatric: A+Ox3, euthymic affect Results & Data ([facility]) Vital Signs (Past 12 Hours) Vital Signs Temp Pulse Resp BP Pulse Ox 03/30/21 08:07 36.5 C 71 16 129/63 92 10/02/20 21:57 37.0 C 68 16 135/65 93
[2020-10-03] MEDS: ursodioL 300 MG CAP PO SCH ×2 (09:20→17:40)
[2020-10-03] MEDS: PANTOprazole 40 MG TAB PO SCH (09:20)
[2020-10-03] MEDS: FINASTERIDE 5 MG TAB PO SCH (09:21)
[2020-10-03] MEDS: METOPROLOL TARTRATE 50 MG TAB PO SCH (09:21)
[2020-10-03] MEDS: allopurinoL 300 MG TAB PO SCH (09:21)
[2020-10-03] MEDS: CEROVITE ADV FORMULA TAB PO SCH (09:22)
[2020-10-03] MEDS: LORATADINE 10 MG TAB PO SCH (09:22)
[2020-10-03] MEDS ORDERED: FAMOTIDINE 20 MG TAB PO SCH (12:30)
[2020-10-03] MEDS ORDERED: TRANEXAMIC ACID 1,000 MG **IV Pre-op IV SCH (12:30)
[2020-10-03] MEDS ORDERED: TRANEXAMIC ACID 1,000 MG **IV Intra-op IV SCH (12:30)
[2020-10-03] MEDS ORDERED: ACETAMINOPHEN 500 MG TAB PO SCH (12:30)
[2020-10-03] MEDS ORDERED: ceFAZolin 1000MG 1,000 MG/7.5 ML SYR IV SCH (12:30)
[2020-10-03] MEDS ORDERED: dexAMETHasone 4 MG TAB PO SCH (12:30)
[2020-10-03] MEDS ORDERED: NEOSTIGMINE METHYLSULFATE 5 MG/5 ML SYR IV ONE (15:05)
[2020-10-03] MEDS ORDERED: ONDANSETRON INJ 2 MG/ML 2 ML VIAL IV ONE (15:05)
[2020-10-03] MEDS ORDERED: PROPOFOL IV EMULSION 10 MG/ML 20 ML VIAL IV ONE (15:05)
[2020-10-03] MEDS ORDERED: GLYCOPYRROLATE 0.2 MG/ML VIAL IM ONE (15:05)
[2020-10-03] MEDS ORDERED: PHENYLEPHRINE 100MCG/ML 5ML SYR IV ONE (15:05)
[2020-10-03] MEDS ORDERED: LIDOCAINE 2% 2 ML VIAL/AMP(20MG/ML) INFIL ONE (15:05)
[2020-10-03] MEDS ORDERED: ROCURONIUM BROMIDE 10 MG/ML 5 ML VIAL IV ONE (15:05)
[2020-10-03] MEDS ORDERED: VANCOMYCIN HCL 1,250 MG in SODIUM CHLORIDE 0.9% 250 ML IV SCH (16:00)
--- NOTE | 2020-10-03 16:20 | History & Physical Bridge Note ---
Date of Service October 03, 2020 History & Physical Bridge Note I have examined the patient, reviewed the History & Physical and in the interval since the performance of the History & Physical I have noted the following changes of clinical significance: no changes noted
[2020-10-03] MEDS ORDERED: BACITRACIN INJ 50,000 UNIT VIAL IM ONE (17:25)
[2020-10-03] MEDS ORDERED: fentaNYL citrate 100 MCG/2 ML VIAL IV ONE (17:25)
[2020-10-03] MEDS ORDERED: BUPIVACAINE 0.5 % 5 MG/1 ML PF 10ML VIAL INFIL ONE (17:25)
[2020-10-03] MEDS ORDERED: DAKIN'S SOLN 0.25% HALF STRENGTH 473ML BTL EXT ONE (17:30)
[2020-10-03] MEDS: CALCIUM 600MG + VIT D 400 IU TAB PO SCH (17:40)
--- NOTE | 2020-10-03 17:57 | Anesthesiology Consultation ---
Date of Service October 03, 2020 Assessment & Plan Chart Review Chart Review: Acceptable Risk for Surgery Consults Requested none History Surgery Operation Date: 10/03/20 09:25 Proposed Procedures p Right Total Shoulder Irrigation and Debridement Versus - Gil Monet DO s Revision Total Shoulder to Reverse Total Shoulder Arthroplasty - Gil Monet DO Height/Weight Height: 5 ft 8 in Weight: 79.6 kg Allergies Allergy/AdvReac Type Severity Reaction Status Date / Time Egg Derived Allergy Intermediate RASH WITH Verified 10/02/20 14:49 LARGE QUANTITIES metformin Allergy Intermediate GI ISSUES Verified 10/02/20 14:49 pollen extracts Allergy Intermediate ITCHY Verified 10/02/20 14:49 EYES, SNEEZING, CONGESTION codeine AdvReac Intermediate N/V, Verified 10/02/20 14:49 HYPOTENSTION fentanyl AdvReac Intermediate EXTREME Verified 10/02/20 14:49 NAUSEA; BP DROPS meperidine AdvReac Intermediate N/V, Verified 10/02/20 14:49 HYPOTENSTION morphine AdvReac Intermediate N/V, Verified 10/02/20 14:49 HYPOTENSTION Flu Virus Vaccine Allergy Intermediate AVOIDS DUE Uncoded 10/02/20 14:49 TO EGG ALLERGY NARCOTICS AdvReac Intermediate N/V, Uncoded 10/02/20 14:49 HYPOTENSTION Medications Home Medications Medication Instructions Recorded Confirmed Last Taken Caltrate 600 plus D 1 tab PO QDL 09/29/18 10/02/20 07/04/19 13:00 Eye Drops Advanced Relief 2 drp OPB AMHS 09/29/18 10/02/20 07/05/19 08:30 [place] 3-6-9 1 cap PO QAM 09/29/18 10/02/20 06/30/19 alendronate 70 mg PO WK 09/29/18 10/02/20 06/30/19 alfuzosin 10 mg PO QPM 09/29/18 10/02/20 07/04/19 19:00 allopurinol 300 mg PO QAM 09/29/18 10/02/20 07/04/19 08:30 finasteride 5 mg PO QAM 09/29/18 10/02/20 07/04/19 08:30 magnesium oxide 400 mg PO QAM 09/29/18 10/02/20 07/04/19 08:30 misoprostol 200 mcg PO QAM 09/29/18 10/02/20 06/30/19 omeprazole 20 mg PO QAM 09/29/18 10/02/20 07/04/19 08:30 rosuvastatin 10 mg PO HS 09/29/18 10/02/20 07/04/19 19:00 ursodiol 300 mg PO BIDM 09/29/18 10/02/20 06/29/19 aspirin 81 mg PO HS 12/11/18 10/02/20 06/30/19 folic acid 1 mg PO QDL 02/02/19 10/02/20 07/04/19 13:00 metoprolol tartrate 50 mg tablet 50 mg PO QAM tab 03/30/19 10/02/20 07/04/19 13:00 metoprolol tartrate 50 mg tablet 75 mg PO HS #135 tab 03/30/19 10/02/20 07/04/19 21:00 PreserVision AREDS 1 tab PO BIDM 04/02/19 10/02/20 06/30/19 aspirin 325 mg PO DAILY PRN 04/02/19 10/02/20 06/30/19 ciprofloxacin HCl [Cipro] 500 mg PO BID 04/02/19 10/02/20 07/04/19 19:00 cranberry 500 mg PO QAM 04/02/19 10/02/20 07/04/19 08:30 diclofenac sodium 75 mg PO QAM 04/02/19 10/02/20 06/23/19 meclizine 25 mg PO DAILY PRN 04/02/19 10/02/20 Unknown omega-3s 667 [id number]-fish 3 cap PO QAM cap 05/24/19 10/02/20 06/30/19 oil-vitamin D3 250 unit capsule loratadine [Claritin] 10 mg PO QAM 06/24/19 10/02/20 07/04/19 08:30 Active Medications Generic Name Dose Route Start Last Admin Trade Name Freq PRN Reason Stop Dose Admin Alfuzosin HCl 10 mg 10/02/20 21:00 10/02/20 21:10 Alfuzosin Hcl 10 Mg Tab PO 11/01/20 20:59 10 mg QPM SHAGUFTA Administration Allopurinol 300 mg 10/03/20 09:00 10/03/20 09:21 Allopurinol 300 Mg Tab PO 11/02/20 08:59 300 mg QAM SHAGUFTA Administration Finasteride 5 mg 10/03/20 09:00 10/03/20 09:21 Finasteride 5 Mg Tab PO 11/02/20 08:59 5 mg QAM SHAGUFTA Administration Piperacillin Sod/Tazobactam 115 mls @ 28.75 mls/hr 10/03/20 02:00 10/03/20 17:52 Sod 3.375 gm/ Dextrose IV 10/09/20 01:59 28.8 mls/hr Q8H SHAGUFTA Administration Protocol Sodium Chloride 1,000 mls @ 125 mls/hr 10/02/20 20:00 10/03/20 14:01 Nss 1000ml IV 11/01/20 19:59 125 mls/hr .Q8H SHAGUFTA Administration Insulin Aspart 0 units 10/03/20 06:00 10/03/20 13:17 Insulin Aspart 100 Units/Ml 3 Ml Pen SC 11/02/20 05:59 1 units Q6 SHAGUFTA Administration Loratadine 10 mg 10/03/20 09:00 10/03/20 09:22 Loratadine 10 Mg Tab PO 11/02/20 08:59 10 mg QAM SHAGUFTA Administration Metoprolol Tartrate 50 mg 10/03/20 09:00 10/03/20 09:21 Metoprolol Tartrate 50 Mg Tab PO 11/02/20 08:59 50 mg QAM SHAGUFTA Administration Metoprolol Tartrate 75 mg 10/02/20 21:00 10/02/20 21:16 Metoprolol Tartrate 25 Mg Tab PO 11/01/20 20:59 75 mg HS SHAGUFTA Administration Miscellaneous 1 ea 10/03/20 00:00 10/03/20 13:40 *Eye Drops Advanced Relief*Order Awaiting Action N/A 11/02/20 00:00 Not Given QS SHAGUFTA Multivitamins/Minerals 1 tab 10/03/20 09:00 10/03/20 09:22 Cerovite Adv Formula Tab PO 11/02/20 08:59 1 tab DAILY SHAGUFTA Administration Protocol Multivitamins/Minerals 1 tab 10/03/20 11:30 10/03/20 17:40 Calcium 600mg + Vit D 400 Iu Tab PO 11/02/20 11:29 Not Given QDL SHAGUFTA Pantoprazole Sodium 40 mg 10/03/20 09:00 03/30/21 09:20 Pantoprazole 40 Mg Tab PO 11/02/20 08:59 40 mg QAM SHAGUFTA Administration Protocol Rosuvastatin Calcium 10 mg 10/02/20 21:00 10/02/20 21:11 Rosuvastatin Calcium 10 Mg Tab PO 11/01/20 20:59 10 mg HS SHAGUFTA Administration Ursodiol 300 mg 10/02/20 20:00 10/03/20 17:40 Ursodiol 300 Mg Cap PO 11/01/20 19:59 Not Given BIDM SHAGUFTA NPO Date Last Intake of Fluids: 10/02/20 Time Last Intake of Fluids: 23:30 Date Last Intake of Solids: 10/02/20 Time Last Intake of Solids: 17:00 Past Medical History Medical History Benign prostatic hyperplasia with urinary obstruction CAD (coronary artery disease) STENT X 1 (2001) AT [facility] Enlarged prostate High cholesterol History of IBS History of kidney stones History of myocardial infarction STENT X 1 (2001) S/P B/L TKA Stable; Has not had to use NTG since stent placement HTN (hypertension) Hx of basal cell carcinoma Hx of deep venous thrombosis LLE "A LONG TIME AGO" Hx of ulcerative colitis S/p colectomy- ileostomy 1990 and 1994 Hx of vertigo Ileostomy in place Left lower lobe pneumonia 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 Aneurysm present since [place] in 2001 per cardio Macular degeneration Neurogenic bladder NO DOS SANTOS CATHETER 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 PVCs (premature ventricular contractions) Asymptomatic per patient Sciatica TIA (transient ischemic attack) TIA vs complex migraine February 2019 Type 2 diabetes mellitus Past Family History Family History Father Myocardial infarction Family/Other Hypertension Nephrolithiasis Sister FH: ovarian cancer Other Family history of breast cancer in mother Past Surgical History Surgical History History of anesthesia reaction SLOW TO WAKE, BREATHING ISSUES, NAUSEA AND VOMITING History of appendectomy History of arthroplasty of right shoulder Right TSA= 05/24/16= Grade 1 view, MAC#4 at [facility] History of cholecystectomy History of colonoscopy History of cystoscopy History of ERCP MULTIPLE History of exploratory laparotomy X2 "COMMON DUCT RECONSTRUCTION" History of hand surgery RT/LEFT THUMBS History of lumbar laminectomy History of total bilateral knee replacement Hx of bilateral cataract extraction Social History Smoking Status: Never smoker Hx Alcohol Use: Yes Alcohol type: wine alcohol intake frequency: holidays/special occasions only Hx Substance Use: No substance use type: does not use Physical Exam Vital Signs Last Vital Signs Temp 36.4 C L 10/03/20 17:19 Pulse 72 10/03/20 17:19 Resp 18 10/03/20 17:19 BP 137/91 10/03/20 17:19 Pulse Ox 93 10/03/20 17:19 Testing Laboratory Results 10/03/20 06:46 10/03/20 06:46 Hemoglobin A1c 7.1 % (4.5-5.6) H 10/03/20 06:46 Blood Type O Positive 10/02/20 13:36 Antibody Screen POSITIVE A 10/02/20 13:36 10/03/20 12:28 POC Glucose 147 H
[2020-10-03] MEDS ORDERED: ONDANSETRON INJ 2 MG/ML 2 ML VIAL IV PRN (17:58)
[2020-10-03] MEDS ORDERED: fentaNYL citrate 100 MCG/2 ML VIAL IV PRN (17:58)
[2020-10-03] MEDS ORDERED: METOCLOPRAMIDE HCL INJ 5 MG/ML 2 ML VIAL IV PRN (17:58)
[2020-10-03] MEDS ORDERED: HYDROmorphone INJ 1 MG/ML SYRINGE IV PRN (17:58)
[2020-10-03] MEDS ORDERED: PROMETHAZINE HCL 12.5 MG in SODIUM CHLORIDE 0.9% 50 ML IV PRN (17:58)
[2020-10-03] MEDS ORDERED: ePHEDrine sulfate 50 MG/ML AMP IV PRN (17:58)
[2020-10-03] MEDS ORDERED: ATROPINE SULFATE 0.1 MG/ML 10ML SYR IV PRN (17:58)
[2020-10-03] MEDS ORDERED: BACITRACIN INJ 50,000 UNIT VIAL IR ONE ×2 (18:31→19:25)
--- NOTE | 2020-10-03 18:52 | Billing Data ---
Date of Service October 03, 2020 Coding Level of Care Code 44786 Subseq Hosp Care Lvl 3
--- NOTE | 2020-10-03 19:24 | Operative Report ---
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 Postoperative diagnosis: Deep right deltoid abscess without periprosthetic shoulder infection of the right shoulder I identified the patient and participated in the time-out.: Yes Procedure Operation Date: 10/03/20 09:25 Actual Procedures p Right Shoulder Abscess Irrigation and Debridement(Right) - Gil Monet DO Surgeon Gil Monet DO Equipment Driver Gil Marte PAC Estimated Blood Loss 200 Findings Consistent with Post-Op Diagnosis Specimens Cultures Complications none Disposition Disposition: Recovery Room Indications Jordy is a pleasant 80-year-old male who I did a right shoulder replacement on 2015. He did extremely well until 4 days ago. All of a sudden she began having severe right shoulder pain. He was unable to move his right arm. He had an obvious anterior abscess. I aspirated in the office and was mary pus. We admitted him to the hospital and decided to do an open I&D with possible removal of implants. Description of Procedure On October 03, 2020 Nick was brought down from his hospital room to the preoper ative holding area. The operative extremity identified and signed. He was taken back to the operating room laid on table in supine position. He was given a general anesthetic. He was put into the beachchair position. The right shoulder was prepped and draped in sterile fashion. A timeout was done. The patient and the operative extremity was properly identified. The deltopectoral pectoral incision was once again opened up. Dissection was taken down to the interval. Once I violated the deltoid there was a large amount of purulent discharge. Cultures were taken. Once this large pocket of deep deltoid abscess was evacuated the anterior shoulder was exposed. I did not see any signs of connection between the subdeltoid space and the intra-articular glenohumeral joint. The shoulder was brought through a full range of motion. There was no evidence of infection going into the shoulder and certainly no evidence of an infection that originated in the shoulder and came out to the wood bdeltoid region. Time was then spent debriding the subdeltoid area and irrigating it thoroughly. The rotator interval was then opened up. I wanted to be sure it did not involve the glenohumeral joint. There was no evidence of infection within the glenohumeral joint. The entire wound was then irrigated with 3 L normal saline solution. I then did a 3-minute Betadine lavage. I then irrigated again with 3 L of normal saline solution. I closed the interval with #0 Prolene suture. I once again irrigated the abscess region with 3 L of normal saline solution with bacitracin. A drain was placed. Skin was closed with 2-0 Vicryl and salvatore. A Silverlon dressing was placed. He was then placed in a regular arm sling. He was then extubated and transferred to a [facility]. He was taken to the post anesthesia care unit in stable condition. He tolerated the procedure well. Gil Marte PA-C, was present for the entire procedure. He was critical for patient positioning, prepping, draping, retraction exposure, wound closure and application of sterile dressing. I attest to the content of the Intraoperative Record and any orders documented therein. Any exceptions are noted below.
--- NOTE | 2020-10-03 20:11 | Anesthesiology Progress Note ---
Date of Service October 03, 2020 Anesthesia Post Procedure Vital Signs Vital Signs: Temp Pulse Pulse Resp BP Pulse Ox 10/03/20 20:05 36.4 C L 81 18 126/67 98 10/03/20 19:50 76 18 138/68 98 10/03/20 19:40 76 16 149/65 H 93 10/03/20 19:30 36.4 C L 69 16 117/61 92 10/03/20 17:19 36.4 C L 72 18 137/91 93 10/03/20 15:59 36.5 C 66 16 133/65 92 10/03/20 08:07 36.5 C 71 16 129/63 92 10/02/20 21:57 37.0 C 68 16 135/65 93 Transfer of Care Handoff Completed per policy Notes Mental Status: alert / awake / arousable and participated in evaluation Patient Amnestic to Procedure: Yes Nausea / Vomiting: adequately controlled Pain: adequately controlled Airway Patency, RR, SpO2: stable & adequate BP & HR: stable & adequate Hydration State: stable & adequate Anesthetic Complications: no major complications apparent and Pt Satisfied with anesthetic care
[2020-10-03] MEDS ORDERED: SODIUM CHLORIDE 0.9% 1000ML 1,000 ML IV SCH (20:19)
[2020-10-03] MEDS ORDERED: bisacodyL 10 MG SUPP PR PRN (20:19)
[2020-10-03] MEDS ORDERED: NALOXONE HCL 0.4 MG/1 ML VIAL/CARP IV PRN (20:19)
[2020-10-03] MEDS ORDERED: MAGNESIUM HYDROXIDE SUSP 30 ML UDC PO PRN (20:19)
[2020-10-03] MEDS: ACETAMINOPHEN 1,000 MG/100 ML VIAL IV PRN (20:54)
[2020-10-03] MEDS: METOPROLOL TARTRATE 25 MG TAB PO SCH (23:06)
[2020-10-03] MEDS: ALFUZOSIN HCL 10 MG TAB PO SCH (23:06)
[2020-10-03] MEDS: DOCUSATE SODIUM 100 MG CAP PO SCH (23:07)
[2020-10-03] MEDS: ROSUVASTATIN CALCIUM 10 MG TAB PO SCH (23:07)
[2020-10-03] MEDS: SENNA 8.6 MG TAB PO SCH (23:07)
[2020-10-04] MEDS: SODIUM CHLORIDE 0.9% 1000ML 1,000 ML IV SCH
[2020-10-04] MEDS: PIPERACILLIN/TAZOBACTAM 3.375 GM in DEXTROSE 5% 100 ML IV SCH ×3 (01:31→17:53)
[2020-10-04] MEDS: [UNRECOGNIZED DRUG - REMARK] SCH ×4 (01:32→22:59)
[2020-10-04] MEDS: INSULIN ASPART 100 UNITS/ML 3 ML PEN SC SCH ×5 (01:51→21:22)
[2020-10-04] MEDS: ACETAMINOPHEN 1,000 MG/100 ML VIAL IV PRN (05:44)
[2020-10-04 06:42] LABS: Mean Corpuscular Hgb Conc 32.6 g/dL (32-36)
--- NOTE | 2020-10-04 07:04 | Orthopedic Progress Note ---
Date of Service October 04, 2020 Assessment & Plan (1) Abscess of right shoulder: Nick was taken to the operating room yesterday. There was a very large abscess within the deltoid muscle belly and in the subdeltoid space. Cultures were taken. Fortunately, the infection did not appear to violate the shoulder joint. Once I fully evacuated and washed out the abscess, I did open up the shoulder joint and there was no evidence of joint infection. I washed out the joint prophylactically but did not remove or exchange any components. The rotator cuff was completely intact. There was absolutely no evidence of infection that originated in the joint and made its way out into the subdeltoid space. There was also no evidence that the subdeltoid abscess communicated with the shoulder joint. A drain was placed. He is only in a sling for comfort. He will be seen by physical therapy today for ambulation and range of motion exercises. He really does not have any restrictions with his right shoulder. His rotator cuff was completely intact so I am interested to see his ability to regain his forward elevation. He will continue the Zosyn for now until final cultures come back. Subjective Nick was seen and examined at bedside this morning. His shoulder is feeling a lot better this morning. He still does not feel that he is able to do any forward elevation with his shoulder. He was very confused after he woke up from surgery. He was awake, alert, and oriented when I spoke with him this morning. He has no new complaints.. Review of Systems All systems reviewed & are unremarkable except as noted in HPI & below. Physical Exam On physical examination of the right shoulder, the dressing is clean and dry. He is wearing a sling. He has movement of his hand wrist and elbow but he is unable to forward elevate his shoulder at this point.. Results & Data Results & Data Laboratory Results . Diagnostic Findings . PG Care Time/CCT Total # of Minutes Spent Total Time Spent with Patient: Total time spent is greater than 50% in coordination of care (as documented) at patient's floor/unit and/or counseling patient: Coding Level of Care Code 68889 Post Operative Follow-Up Diagnoses Abscess of right shoulder L02.413
[2020-10-04 07:16] LABS: BUN Creatinine Ratio 27.2 (10-20); Calcium 7.9 mg/dl (8.5-10.1); Creatinine Clr Calc Pharmacy 74.5 ml/min; Est GFR (African American) 99.6; Est GFR (Non-African American) 85.9
[2020-10-04 07:24] LABS: Anisocytosis Present; Eosinophils # (auto) 0.02 K/uL (0-0.5); Eosinophils % (auto) 0.4 %; Hematocrit (blood only) 29.8 % (42-52); Hemoglobin 9.7 g/dL (14.0-18.0); Immature Granulocytes # (auto) 0.04 K/uL (0.00-0.02); Immature Granulocytes % (auto) 0.8 %; Lymphocytes # (auto) 0.41 K/uL (1.2-3.4); Lymphocytes % (auto) 8.1 %; Mean Corpuscular Hemoglobin 31.3 pg (25-34); Mean Corpuscular Volume 96.1 fL (80-100); Monocytes # (auto) 0.43 K/uL (0.11-0.59); Monocytes % (auto) 8.4 %; Neutrophils # (auto) 4.19 K/uL (1.4-6.5); Neutrophils % (auto) 82.3 %; Platelet Count 70 K/uL (130-400); Platelet Estimate Decreased (Normal); RDW Coefficient of Variation 18.9 % (11.5-14.5); RDW Standard Deviation 66.3 fL (36.4-46.3); Target Cells 1+; White Blood Count 5.09 K/uL (4.8-10.8)
[2020-10-04] MEDS: MAGNESIUM OXIDE 400 MG TAB PO SCH (08:48)
[2020-10-04] MEDS: PANTOprazole 40 MG TAB PO SCH (08:48)
[2020-10-04] MEDS: ursodioL 300 MG CAP PO SCH ×2 (08:48→17:54)
[2020-10-04] MEDS: LORATADINE 10 MG TAB PO SCH (08:48)
[2020-10-04] MEDS: METOPROLOL TARTRATE 50 MG TAB PO SCH (08:48)
[2020-10-04] MEDS: CEROVITE ADV FORMULA TAB PO SCH (08:48)
[2020-10-04] MEDS: miSOPROStoL 200 MCG TAB PO SCH ×2 (08:48→09:01)
[2020-10-04] MEDS: FINASTERIDE 5 MG TAB PO SCH (08:48)
[2020-10-04] MEDS: MULTIVITAMIN TAB PO SCH (08:48)
[2020-10-04] MEDS: allopurinoL 300 MG TAB PO SCH (08:49)
[2020-10-04] MEDS: DOCUSATE SODIUM 100 MG CAP PO SCH ×2 (08:56→21:22)
[2020-10-04] MEDS ORDERED: INSULIN GLARGINE SOLOSTAR 100 UNITS/ML 3 ML PEN SC SCH (09:00)
[2020-10-04] MEDS ORDERED: NON-FORMULARY MEDICATION (Fish,Bora,Flax Oils-Om3,6,9no1 [Omega 3-6-9] 1,200 mg Capsule) PO SCH (09:00)
[2020-10-04] MEDS ORDERED: INSULIN GLARGINE SOLOSTAR 100 UNITS/ML 3 ML PEN SC ONE ×2 (09:00→21:00)
[2020-10-04] MEDS ORDERED: OMEGA-3 (PURIFIED FISH OIL) 1 GM CAP PO SCH (09:00)
[2020-10-04] MEDS ORDERED: VANCOMYCIN TROUGH ONE (09:30)
--- NOTE | 2020-10-04 09:55 | Pharmacy Report ---
Pharmacy Glycemic Short Note 2 - Date of Service October 04, 2020 - Glycemic Short BSG Results (Last 24 hours): 10/03/20 10/03/20 10/03/20 12:28 19:34 20:50 Glucose POC Glucose 147 H 145 H 176 H 10/04/20 10/04/20 06:29 08:10 Glucose 185 H POC Glucose 168 H OUTPATIENT ANTIDIABETIC REGIMEN: * None - diet controlled * HbA1c = 7.1% (10/03/20) ASSESSMENT: 10/04: * BSGs yesterday of 174, 147, 143, and 176 mg/dL * No basal insulin given yesterday, 5 units of bolus * Patient was NPO yesterday for right shoulder I&D * Ordered a diet today * Fasting BSG elevated this morning at 168 mg/dL * Will restart basal insulin * Pre-lunch BSG of 226 mg/dL - will tighten Novolog parameters 10/02: * 80 yo M admitted this evening secondary to a prosthetic shoulder infection. Pharmacy is consulted for assistance with inpatient glycemic management. * BSG was 187 mg/dL upon transfer to floor. No records of outpatient regimen and last A1c was in 2017. * Will start patient on Lantus and Novolog based on a weight and stress of 2. No further Lantus will be ordered as patient will be NPO after midnight. PLAN FOR INPATIENT GLYCEMIC CONTROL: * Basal insulin - increase * Lantus 20 units SC x 1 this morning * Lantus scale this evening to provide 0-15 additional units (see EHR for details) * Bolus insulin - tighten * NovoLog per scale ACHS or Q6hrs while NPO * Goal Range: Low 110 mg/dL - High 140 mg/dL * Correction Factor: 25 mg/dL/unit * Nutritional / Prandial insulin per carb ratio of 1 unit per 8 grams CHO consumed PLAN FOR DISCHARGE: * HbA1c of 7.1% may be reasonable given patient's age * If targeting less than 7%, would also be reasonable to initiate metformin XR 500 mg PO daily with largest meal of day * Typically the XR formulation of metformin is better tolerated than the immediate release formulation. Continue to titrate metformin dosing upwards as recommended. Dosage increases should be made in increments of 500 mg weekly, up to 2,000 mg/day PO, given in divided doses.
--- NOTE | 2020-10-04 10:44 | Hospitalist Progress Note ---
Date of Service October 04, 2020 Assessment & Plan (1) Abscess of right shoulder: Jordy Tesfaye is a 80y/o M with Abscess of right deltoid: -POD #1 of I&D of abscess -surgical note indicates no involvement of the prosthetic or of the joint -Aspirate from outpatient demonstrating quiroga-sensitive klebsiella -Blood cultures negative to date -Wound aspirate from OR demonstrating gram negative bacilli -continue Zosyn until blood cultures negative at 48 hrs -if negative >48 hrs will transition to Ceftriaxone daily, with likely needed course of 7-10 days of coverage Primary sclerosing cholangitis: -concern that infection/abscess potentially represents previous seeding as contribution from PSC flare -patient was scheduled to have ERCP on 10/10 with [place] -will attempt to reach out to primary [employer] to discuss potential complications of PSC for this new development and role of repeat ERCP at this time Type 2 diabetes mellitus: -Not taking any outpatient medications for diabetes. -A1c 7.1%. -BSGs ACHS, with SSI BPH loc w/o ur obs/LUTS: -Continue alfuzosin 10 mg PO QPM Coronary artery disease: -continue metoprolol tartrate 50 mg PO QAM, 75 mg PO QPM Diet: carb consistent/ heart healthy CODE STATUS: Full code DVT ppx: SCDs (2) Primary sclerosing cholangitis: (3) Type 2 diabetes mellitus: Admission and Anticipated Discharge Date Admission Date: October 02, 2020 Supervising Physician Co-Signing Physician Notes I personally examined the patient and verified all [place] points of history and exam, discussed case, and agree with decision making with Dr Garett monreal. reviewed findings w pt. he expresses understanding vitals noted nad heent nc at mmm R dressed. no tracking erythema septic shoulder - gram neg - ?hematologic seeding from cholangitis seems most likely. zosyn - but once cultures are all either negative or consistent w quiroga S Klebsiella, then anticipate change to rocephin, likely 14 days IV Rx primary sclerosing cholangitis - normally gets dilated ~g1rogboc, notes it's been 7. concern that this is allowing a bit of an "open door" for hematogenous seeding. for f/u at [facility] in short order otherwise as above Subjective Patient feels much better this morning, and continues to feel like he has had improvement in his ability to move his arm/hand, and some shoulder movement. No fevers, chills, sweats overnight, no abdominal pain, nausea/vomiting, or changes in bowel movements. Discussed case with , who indicated that when she spoke with [place] [employer] earlier in the week, and they would appreciate an update about the findings given the chronicity of his disease, and she provided their contact information. Review of Systems Review of Systems: All systems reviewed & are unremarkable except as noted in Subjective Physical Exam Constitutional: WD/WN, vitals as above Eyes: PERRL, conjunctivae normal, anicteric sclerae Respiratory: normal respiratory effort, lungs clear to auscultation Cardiovascular: Rate/Rhythm: regular rate and regular rhythm Heart Sounds: no gallop, no murmur and no cardiac rub Gastrointestinal (Abdomen): Inspection/Auscultation: normal bowel sounds; abdomen not distended Percussion/Palpation: abdomen soft; abdomen nontender and no guarding Skin: well healing surgical site over right should, no surrounding erythema, no surrounding tenderness, no surrounding fluctuance Results & Data Results & Data ([facility]) Vital Signs (Past 12 Hours) Vital Signs Temp Pulse Resp BP Pulse Ox 10/04/20 07:48 36.5 C 66 18 126/65 98 10/04/20 03:31 36.5 C 78 18 148/69 H 95 10/03/20 23:00 36.4 C L 86 18 146/66 H 92 Laboratory Results 10/04/20 10/04/20 10/04/20 Range/Units 11:58 08:10 06:29 WBC 5.09 (4.8-10.8) K/uL RBC 3.10 L (4.7-6.1) M/uL Hgb 9.7 L (14.0-18.0) g/dL Hct 29.8 L (42-52) % MCV 96.1 (80-100) fL MCH 31.3 (25-34) pg MCHC 32.6 (32-36) g/dL RDW Std Deviation 66.3 H (36.4-46.3) fL RDW Coeff of Chani 18.9 H (11.5-14.5) % Plt Count 70 L D (130-400) K/uL Immature Gran % (Auto) 0.8 % Neut % (Auto) 82.3 % Lymph % (Auto) 8.1 % [place] % (Auto) 8.4 % Eos % (Auto) 0.4 % Baso % (Auto) 0.0 % Neut # (Auto) 4.19 (1.4-6.5) K/uL Lymph # (Auto) 0.41 L (1.2-3.4) K/uL [place] # (Auto) 0.43 (0.11-0.59) K/uL Eos # (Auto) 0.02 (0-0.5) K/uL Baso # (Auto) 0.00 (0-0.2) K/uL Immature Gran # (Auto) 0.04 H (0.00-0.02) K/uL Platelet Estimate Decreased L (Normal) Anisocytosis Present Target Cells 1+ Sodium (136-145) mmol/L Potassium (3.5-5.1) mmol/L Chloride (98-107) mmol/L Carbon Dioxide (21-32) mmol/L Anion Gap (3-11) BUN (7-18) mg/dl Creatinine (0.6-1.4) mg/dl Est Cr Clr Drug Dosing ml/min Est GFR ( Amer) Est GFR (Non-Af Amer) BUN/Creatinine Ratio (10-20) Glucose (70-99) mg/dl POC Glucose 226 H 168 H (70-99) mg/dl Calcium (8.5-10.1) mg/dl 10/04/20 10/03/20 10/03/20 Range/Units 06:29 20:50 19:34 WBC (4.8-10.8) K/uL RBC (4.7-6.1) M/uL Hgb (14.0-18.0) g/dL Hct (42-52) % MCV (80-100) fL MCH (25-34) pg MCHC (32-36) g/dL RDW Std Deviation (36.4-46.3) fL RDW Coeff of Chani (11.5-14.5) % Plt Count (130-400) K/uL Immature Gran % (Auto) % Neut % (Auto) % Lymph % (Auto) % [place] % (Auto) % Eos % (Auto) % Baso % (Auto) % Neut # (Auto) (1.4-6.5) K/uL Lymph # (Auto) (1.2-3.4) K/uL [place] # (Auto) (0.11-0.59) K/uL Eos # (Auto) (0-0.5) K/uL Baso # (Auto) (0-0.2) K/uL Immature Gran # (Auto) (0.00-0.02) K/uL Platelet Estimate (Normal) Anisocytosis Target Cells Sodium 142 (136-145) mmol/L Potassium 4.0 (3.5-5.1) mmol/L Chloride 114 H (98-107) mmol/L Carbon Dioxide 25 (21-32) mmol/L Anion Gap 3.0 (3-11) BUN 20 H (7-18) mg/dl Creatinine 0.74 (0.6-1.4) mg/dl Est Cr Clr Drug Dosing 74.5 ml/min Est GFR ( Amer) 99.6 Est GFR (Non-Af Amer) 85.9 BUN/Creatinine Ratio 27.2 H (10-20) Glucose 185 H (70-99) mg/dl POC Glucose 176 H 145 H (70-99) mg/dl Calcium 7.9 L (8.5-10.1) mg/dl Resident Activity Tracking Resident Involvement: Resident Care Provided Care Provided: Adult [facility] (1) Type 2 diabetes mellitus Diabetes mellitus complication status: with hyperglycemia Diabetes mellitus fpc insulin use: without fpc use Qualified Code(s): E11.65 - Type 2 diabetes mellitus with hyperglycemia
[2020-10-04] MEDS: FOLIC ACID 1 MG TAB PO SCH (12:28)
[2020-10-04] MEDS: CALCIUM 600MG + VIT D 400 IU TAB PO SCH (12:28)
--- NOTE | 2020-10-04 17:30 | Billing Data ---
Date of Service October 04, 2020 Coding Level of Care Code 74605 Subseq Hosp Care Lvl 3
[2020-10-04] MEDS: ALFUZOSIN HCL 10 MG TAB PO SCH (21:21)
[2020-10-04] MEDS: ROSUVASTATIN CALCIUM 10 MG TAB PO SCH (21:21)
[2020-10-04] MEDS: METOPROLOL TARTRATE 25 MG TAB PO SCH (21:21)
[2020-10-04] MEDS: SENNA 8.6 MG TAB PO SCH (21:22)
[2020-10-05] MEDS: PIPERACILLIN/TAZOBACTAM 3.375 GM in DEXTROSE 5% 100 ML IV SCH (02:18)
--- NOTE | 2020-10-05 04:29 | Communication Note ---
Date of Service: October 05, 2020 Notified by nursing around 3:40AM that patient was having bleeding either from or around his stoma. Noted roughly 200mL of bright red blood in the stomal bag and surrounding sheets. Went to evaluate patient. Patient with notable bleeding around ostomy and onto sheets at a fair trickle. Patient himself asymptomatic denying any chest pain, pressure, SOB, abdominal pain or discomfort. He did note that he often gets irritation around the top of his stoma. Plan: -Stomal bag removed and area cleaned with notable bleeding at the 12'o clock position above the stoma. -Pressure held for roughly 30 minutes for cessation of bleed -Discussed with Gen Surg PA who agreed that since the bleeding had stopped at this time, no need for further intervention I.E. silver nitrate or other coagulant. Surgery will reassess in the AM. -Replace stomal kit now.
--- NOTE | 2020-10-05 04:50 | Surgery Consultation ---
Date of Consultation October 05, 2020 Assessment & Plan (1) Bleeding from colostomy stoma: At the present time there is currently no active bleeding. As noted previously has been stopped by application of direct pressure. Patient is noted to be hemodynamically stable, is not hypotensive or tachycardic. The following recommendations will be made: As there is no bleeding I would merely redress his colostomy at this time Patient's medicines were reviewed and he is currently not receiving any antiplatelet or anticoagulant agents. It is noted that he is taking fish oil may be beneficial to stop this if able. Follow serial hemoglobin/hematocrits to ensure he does not have a precipitous drop in these values. It does not appear he requires transfusion at this time Patient is noted to have thrombocytopenia however his platelet count is higher than previous values. We will follow serial labs. -If rebleeding occurs direct pressure can once again be applied, Surgicel could be applied to the affected area, or silver nitrate could be used on the affected area. Supervising Physician Co-Signing Physician Notes As per Javier TANG The patient had a significant bleed years ago that took a while to stop and he attributed that time possibility of having had chicken with some bone that irritated to the ileostomy at 12 o'clock position At the present time there is no active bleeding the ileostomy is working well slight protrusion of the stoma Advised the patient that if he should have more bleeding at home like he did in the past to lay down and put some direct pressure in the area with some gauze and eventually will stop All questions were answered History of Present Illness Reason for Consultation: Bleeding stoma Attending Physician: Viktor Emerson DO History of Present Illness This is an 80-year-old male who is currently an inpatient at [facility] as he has undergone an orthopedic procedure by Dr. Monet. I was asked by the medical service to see the patient regarding a bleeding stoma. This man has a history of ulcerative colitis and has a longstanding history of a stoma since approximately 1994 which is located on the left aspect of his abdomen. Patient notes that occasionally he does get some bloody drainage/oozing around his stoma site. It was noted however that it was oozing more than usual. Patient notes that prior to this bleeding his stoma has been functioning properly. He does not have any abdominal pain. He does not have any nausea or vomiting. I discussed the case with the medical office manager as well as staff on the floor and they noted that they held manual direct pressure on the bleeding area for approximately 30 minutes and by the time of my arrival the bleeding had stopped. The patient's most recent labs were reviewed independently by myself. The most recent CBC was performed yesterday morning. On the study his white blood cell count was normal. His hemoglobin was noted to be 9.7 with a hematocrit of 29.8 and a platelet count of 70 thousand. His hemoglobin and hematocrit have been noted to be stable for the past 48 hours. His platelet count is noted to be higher than previous values. Chemistry profile showed his sodium, potassium, and creatinine were normal. He did have a slight elevation of his BUN at 20. He was noted to have a Covid test on October 03 of this year which was negative. At the time of my arrival the patient did not offer any other complaints. He was in no distress. Allergies Allergy/AdvReac Type Severity Reaction Status Date / Time Egg Derived Allergy Intermediate RASH WITH Verified 10/02/20 14:49 LARGE QUANTITIES metformin Allergy Intermediate GI ISSUES Verified 10/02/20 14:49 pollen extracts Allergy Intermediate ITCHY Verified 10/02/20 14:49 EYES, SNEEZING, CONGESTION codeine AdvReac Intermediate N/V, Verified 10/02/20 14:49 HYPOTENSTION fentanyl AdvReac Intermediate EXTREME Verified 10/02/20 14:49 NAUSEA; BP DROPS meperidine AdvReac Intermediate N/V, Verified 10/02/20 14:49 HYPOTENSTION morphine AdvReac Intermediate N/V, Verified 10/02/20 14:49 HYPOTENSTION Flu Virus Vaccine Allergy Intermediate AVOIDS DUE Uncoded 10/02/20 14:49 TO EGG ALLERGY NARCOTICS AdvReac Intermediate N/V, Uncoded 10/02/20 14:49 HYPOTENSTION Home Medications Medication Instructions Recorded Confirmed Type Caltrate 600 plus D 1 tab PO QDL 09/29/18 10/02/20 History Eye Drops Advanced Relief 2 drp OPB AMHS 09/29/18 10/02/20 History [place] 3-6-9 1 cap PO QAM 09/29/18 10/02/20 History alendronate 70 mg PO WK 09/29/18 10/02/20 History alfuzosin 10 mg PO QPM 09/29/18 10/02/20 History allopurinol 300 mg PO QAM 09/29/18 10/02/20 History finasteride 5 mg PO QAM 09/29/18 10/02/20 History magnesium oxide 400 mg PO QAM 09/29/18 10/02/20 History misoprostol 200 mcg PO QAM 09/29/18 10/02/20 History omeprazole 20 mg PO QAM 09/29/18 10/02/20 History rosuvastatin 10 mg PO HS 09/29/18 10/02/20 History ursodiol 300 mg PO BIDM 09/29/18 10/02/20 History aspirin 81 mg PO HS 12/11/18 10/02/20 History folic acid 1 mg PO QDL 02/02/19 10/02/20 History metoprolol tartrate 50 mg tablet 50 mg PO QAM tab 03/30/19 10/02/20 History metoprolol tartrate 50 mg tablet 75 mg PO HS #135 tab 03/30/19 10/02/20 Rx PreserVision AREDS 1 tab PO BIDM 04/02/19 10/02/20 History aspirin 325 mg PO DAILY PRN 04/02/19 10/02/20 History ciprofloxacin HCl [Cipro] 500 mg PO BID 04/02/19 10/02/20 History cranberry 500 mg PO QAM 04/02/19 10/02/20 History diclofenac sodium 75 mg PO QAM 04/02/19 10/02/20 History meclizine 25 mg PO DAILY PRN 04/02/19 10/02/20 History omega-3s 667 ox-htz-wsp-fish 3 cap PO QAM cap 05/24/19 10/02/20 History oil-vitamin D3 250 unit capsule loratadine [Claritin] 10 mg PO QAM 06/24/19 10/02/20 History Patient History Medical History Abscess of right shoulder (~09/2020) Benign prostatic hyperplasia with urinary obstruction CAD (coronary artery disease) STENT X 1 (2001) AT 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 Aneurysm present since VT in 2001 per cardio Macular degeneration Neurogenic bladder NO DOS [employer] 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 PVCs (premature ventricular contractions) Asymptomatic per patient Sciatica TIA (transient ischemic attack) TIA vs complex migraine February 2019 Type 2 diabetes mellitus Surgical History History of anesthesia reaction SLOW TO WAKE, BREATHING ISSUES, NAUSEA AND VOMITING History of appendectomy History of arthroplasty of right shoulder Right TSA= 05/24/16= Grade 1 view, MAC#4 at [facility] History of cholecystectomy History of colonoscopy History of cystoscopy History of ERCP MULTIPLE History of exploratory laparotomy X2 "COMMON DUCT RECONSTRUCTION" History of hand surgery RT/LEFT THUMBS History of lumbar laminectomy History of total bilateral knee replacement Hx of bilateral cataract extraction Family History Father Myocardial infarction Family/Other Hypertension Nephrolithiasis Sister FH: ovarian cancer Other Family history of breast cancer in mother Social History Smoking Status: Never smoker Second Hand Exposure: Yes ( A CHILD); Hx Alcohol Use: Yes Alcohol type: wine Hx Substance Use: No Preferred Language: Kittitian Communication Ability: Effective 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 Engine 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 Required: No Beliefs That Will Affect Care: None marital status: Current Living Situation: Spouse Other Information That Helps Us Care for You: No Feels Safe at Home: Yes Safety Concerns: Feels Safe At This Time Assistive Devices: Cane Assistive Devices Comment: reading Review of Systems Constitutional: no fever Eyes: no diplopia Ear, Nose, Mouth, Throat: no ear pain Respiratory: no cough and no dyspnea Cardiovascular: no chest pain Gastrointestinal: no abdominal pain, no nausea and no vomiting Genitourinary: no dysuria Musculoskeletal: no back pain Integumentary: no rash Neurologic: no localized weakness Physical Exam Constitutional: well developed and well nourished; no acute distress Eyes: no conjunctival abnormality ENMT: Ears: no hearing impairment Neck: trachea midline Respiratory: normal respiratory effort; no respiratory distress and no labored breathing Gastrointestinal (Abdomen): Abdomen is soft and nondistended. There is no pain with palpation. Patient has a stoma located on the left aspect of his abdomen in the left lower quadrant. There is noted prolapse of the stoma. The prolapsed bowel is noted to be pink and viable. At the time of my interview there is no active bleeding however there was some evidence of recent bleeding at approximately the 12 o'clock position. Small amount of granulation tissue was noted in this area. Skin: no rashes, warm and dry Neurologic: moves all extremities Psychiatric: A+Ox3, euthymic affect Results & Data ([facility]) Vital Signs (Past 12 Hours) Vital Signs Temp Pulse Resp BP Pulse Ox 10/04/20 22:54 36.7 C 77 16 144/63 H 94 10/04/20 21:15 92 H 144/67 H 92 PG Care Time/CCT Total # of Minutes Spent Total Time Spent with Patient: Total time spent is greater than 50% in coordination of care (as documented) at patient's floor/unit and/or counseling patient: Coding Level of Care Code 05244 Inpt Consult Level 3 Diagnoses Bleeding from colostomy stoma K94.01
[2020-10-05] MEDS: [UNRECOGNIZED DRUG - REMARK] SCH (07:38)
[2020-10-05 07:59] LABS: Basophils # (auto) 0.01 K/uL (0-0.2); Basophils % (auto) 0.2 %; Eosinophils # (auto) 0.04 K/uL (0-0.5); Eosinophils % (auto) 0.8 %; Hematocrit (blood only) 29.1 % (42-52); Hemoglobin 9.7 g/dL (14.0-18.0); Immature Granulocytes # (auto) 0.05 K/uL (0.00-0.02); Lymphocytes # (auto) 0.57 K/uL (1.2-3.4); Lymphocytes % (auto) 11.1 %; Mean Corpuscular Hemoglobin 31.5 pg (25-34); Mean Corpuscular Hgb Conc 33.3 g/dL (32-36); Mean Corpuscular Volume 94.5 fL (80-100); Mean Platelet Volume 12.1 fL (7.4-10.4); Monocytes # (auto) 0.48 K/uL (0.11-0.59); Monocytes % (auto) 9.4 %; Neutrophils # (auto) 3.98 K/uL (1.4-6.5); Neutrophils % (auto) 77.5 %; Platelet Count 76 K/uL (130-400); Platelet Estimate Decreased (Normal); RDW Coefficient of Variation 18.4 % (11.5-14.5); RDW Standard Deviation 64.5 fL (36.4-46.3); Red Blood Count 3.08 M/uL (4.7-6.1); White Blood Count 5.13 K/uL (4.8-10.8)
[2020-10-05 08:01] LABS: Albumin Level 1.9 gm/dl (3.4-5.0); Calcium 8.5 mg/dl (8.5-10.1); Creatinine Clr Calc Pharmacy 78.7 ml/min; Est GFR (African American) 101.9; Est GFR (Non-African American) 87.9; Potassium 3.7 mmol/L (3.5-5.1)
--- NOTE | 2020-10-05 08:03 | Orthopedic Progress Note ---
Date of Service October 05, 2020 Assessment & Plan (1) Abscess of right shoulder: He is currently on Uroxatrol for antibiotic treatment for Klebsiella. The blood cultures have been negative so far. He is not having much pain in his shoulder at this point. He can continue to work with physical therapy. Mechanically, his rotator cuff is intact he did not have any mechanical reasons why he cannot forward elevate his shoulder. We will see how he does with some therapy. The Silverlon dressing should stay on for 7 days unless a drains more, then it can be changed. He is orthopedically stable for discharge when medically ready. He can follow-up with orthopedics in 2 weeks for staple rem oval. Jina Romero was seen and examined at bedside this morning. Overall is doing fairly well. Is not having much pain in the shoulder. He has much less pain than he had preoperatively. He was able to work yesterday with physical therapy. He still unable to forward elevate his shoulder.. Review of Systems All systems reviewed & are unremarkable except as noted in HPI & below. Physical Exam On physical examination of the right shoulder, the dressing has a little bit of bloody drainage on it but is not too bad. He has no evidence of a reforming abscess. I was able to palpate around the surgical site and he was not having much pain. He is neurovascularly intact at his hand and his wrist. He is still unable to forward elevate his shoulder.. Results & Data Results & Data Laboratory Results . Diagnostic Findings . PG Care Time/CCT Total # of Minutes Spent Total Time Spent with Patient: Total time spent is greater than 50% in coordination of care (as documented) at patient's floor/unit and/or counseling patient: Coding Level of Care Code 46505 Post Operative Follow-Up Diagnoses Abscess of right shoulder L02.413
[2020-10-05 08:04] LABS: Albumin Globulin Ratio 0.5 (0.9-2); Bilirubin,Total 1.3 mg/dl (0.2-1); Globulin 3.5 gm/dl (2.5-4.0); Total Protein 5.4 gm/dl (6.4-8.2)
[2020-10-05] MEDS ORDERED: cefTRIAXone SODIUM 2,000 MG in DEXTROSE 5% 50 ML IV SCH (08:15)
--- NOTE | 2020-10-05 08:57 | Pharmacy Report ---
Pharmacy Glycemic Short Note 2 - Date of Service October 05, 2020 - Glycemic Short BSG Results (Last 24 hours): 10/04/20 10/04/20 10/04/20 11:58 17:10 21:06 Glucose POC Glucose 226 H 149 H 204 H 10/05/20 10/05/20 07:12 08:02 Glucose 154 H POC Glucose 152 H OUTPATIENT ANTIDIABETIC REGIMEN: * None - diet controlled * HbA1c = 7.1% (10/03/20) ASSESSMENT: 10/05: * BSGs yesterday of 168, 226, 149, and 204 mg/dL * Patient received 59 units of insulin (35 units of basal and 24 units of bolus) * Fasting BSG elevated again this morning at 152 mg/dL, but improved from yesterday * Novolog tightened yesterday with lunch - will tighten again this morning * Zosyn changed to ceftriaxone 2 g IV q24h for infection of right shoulder ( Klebsiella pneumoniae) 10/02: * 80 yo M admitted this evening secondary to a prosthetic shoulder infection. Pharmacy is consulted for assistance with inpatient glycemic management. * BSG was 187 mg/dL upon transfer to floor. No records of outpatient regimen and last A1c was in 2017. * Will start patient on Lantus and Novolog based on a weight and stress of 2. No further Lantus will be ordered as patient will be NPO after midnight. PLAN FOR INPATIENT GLYCEMIC CONTROL: * Basal insulin * Lantus 20 units SC this morning * Lantus scale SC HS to provide 15-20 units based on BSG (see EHR for details) * Bolus insulin - continue * NovoLog per scale ACHS or Q6hrs while NPO * Goal Range: Low 110 mg/dL - High 140 mg/dL * Correction Factor: 20 mg/dL/unit * Nutritional / Prandial insulin per carb ratio of 1 unit per 7 grams CHO consumed PLAN FOR DISCHARGE: * HbA1c of 7.1% may be reasonable given patient's age * If targeting less than 7%, would also be reasonable to initiate metformin XR 500 mg PO daily with largest meal of day * Typically the XR formulation of metformin is better tolerated than the immediate release formulation. Continue to titrate metformin dosing upwards as recommended. Dosage increases should be made in increments of 500 mg weekly, up to 2,000 mg/day PO, given in divided doses.
[2020-10-05] MEDS ORDERED: INSULIN GLARGINE SOLOSTAR 100 UNITS/ML 3 ML PEN SC SCH ×2 (09:00→21:00)
[2020-10-05] MEDS: PANTOprazole 40 MG TAB PO SCH (09:01)
[2020-10-05] MEDS: ursodioL 300 MG CAP PO SCH (09:01)
[2020-10-05] MEDS: allopurinoL 300 MG TAB PO SCH (09:01)
[2020-10-05] MEDS: FINASTERIDE 5 MG TAB PO SCH (09:01)
[2020-10-05] MEDS: LORATADINE 10 MG TAB PO SCH (09:01)
[2020-10-05] MEDS: MULTIVITAMIN TAB PO SCH (09:01)
[2020-10-05] MEDS: CEROVITE ADV FORMULA TAB PO SCH (09:01)
[2020-10-05] MEDS: METOPROLOL TARTRATE 50 MG TAB PO SCH (09:02)
[2020-10-05] MEDS: MAGNESIUM OXIDE 400 MG TAB PO SCH (09:02)
[2020-10-05] MEDS: DOCUSATE SODIUM 100 MG CAP PO SCH (09:03)
[2020-10-05] MEDS: miSOPROStoL 200 MCG TAB PO SCH (09:03)
[2020-10-05] MEDS: INSULIN ASPART 100 UNITS/ML 3 ML PEN SC SCH ×2 (09:05→12:34)
--- NOTE | 2020-10-05 09:52 | Medical Student Progress Note ---
Date of Service October 05, 2020 Assessment & Plan (1) Infection of prosthetic shoulder joint: Inflammation is improving in the right arm. Still some swelling and erythema present. Aspiration culture grew gram negative bacilli. Blood cultures show no growth in 48 hours. Discontinue Zosyn. Start Ceftriaxone. Following with Dr. Monet in ortho. Encounter type: initial encounter Qualified Code(s): T84.59XA - Infection and inflammatory reaction due to other internal joint prosthesis, initial encounter; Z96.619 - Presence of unspecified artificial shoulder joint (2) Bleeding from colostomy stoma: -Had an episode of bleeding from/around his colostomy bag last night. -Resolved with pressure. -Has not had any acute problems since this incident. -Hemoglobin/hematocrit stable. Platelets (76). Coag studies normal. -General surgery was consulted -Believes that he would be okay for discharge -Given instructions on how to manage this at home if it happens again. Present on Admission?: No (3) Type 2 diabetes mellitus: Not taking any outpatient medications for diabetes. A1c was 7.1%. Started on Lantus and Novolog. Diabetes mellitus long term acute care registered nurse insulin use: without correction use Diabetes mellitus complication status: with hyperglycemia Qualified Code(s): E11.65 - Type 2 diabetes mellitus with hyperglycemia (4) Primary sclerosing cholangitis: Currently asymptomatic. Consider recent flare as possible source of bacteremia. (5) Thrombocytopenia: -Appears to be stable. Coagulation studies are normal. (6) BPH loc w/o ur obs/LUTS: Continue alfuzosin 10 mg PO QPM (7) CAD (coronary artery disease): Hold aspirin. Continue metoprolol tartrate 50 mg PO QAM, 75 mg PO QPM (8) DVT prophylaxis: SCDs. Admission and Anticipated Discharge Date Admission Date: October 02, 2020 Subjective He feels well this morning. He believes his arm mobility is improving, however he is still having limited shoulder abduction. There are no deficits in the arm/hand. There are no new acute problems with the shoulder. He reports no fevers or chills overnight. We discussed his incident overnight where he had bleeding from/around his stoma for his colostomy bag. He has not had any bleeding since early this morning when bleeding was controlled with pressure. No further intervention was needed. He was given instructions on what to do if this happens again. Review of Systems 2 Constitutional: no fever and no chills Respiratory: no cough and no dyspnea Cardiovascular: no chest pain, no dyspnea and no edema Gastrointestinal: no abdominal pain, no nausea and no vomiting Bleeding from/around colostomy bag overnight. Musculoskeletal: + swelling and + stiffness; no radicular pain and no deformity Integumentary: no rash Neurologic: no problem reported Physical Exam Constitutional: WD/WN, vitals as above well developed and well nourished; no acute distress Eyes: PERRL, conjunctivae normal, anicteric sclerae + anicteric sclerae ENMT: external ear and nose normal, oropharynx normal Neck: trachea midline, no thyromegaly Respiratory: normal respiratory effort, lungs clear to auscultation normal respiratory effort Auscultation: lungs clear to auscultation bilaterally Cardiovascular: RRR, no murmur, no edema Gastrointestinal (Abdomen): normal bowel sounds, soft, nontender, no hepatosplenomegaly Musculoskeletal: Shoulder: + shoulder abnormal to inspection, + effusion, + skin erythema (mild. noted to be improved from yesterday. ) and + limited ROM (due to pain) Skin: no rashes, warm and dry + erythema (tracking as above); no jaundice Neurologic: moves all extremities and awake; not confused Psychiatric: A+Ox3, euthymic affect Genitourinary: no CVA tenderness Results & Data ([facility]) Vital Signs (Past 12 Hours) Vital Signs Temp Pulse Resp BP Pulse Ox 10/05/20 07:50 36.7 C 69 16 135/66 95 10/04/20 22:54 36.7 C 77 16 144/63 H 94
--- NOTE | 2020-10-05 11:06 | Discharge Summary ---
Date of Service October 05, 2020 Admission HPI Per Admitting Provider Jordy Tesfaye is an 80 year old male medically complex patient who presents as a direct admission from orthopedic clinic earlier today due to 4 days history of increasing right shoulder pain, swelling and erythema in setting of prior shoulder replacement. He reports having an iron infusion on the left side 7 days ago. 4 days ago while doing some wood working his right arm was bothering him more than usual and movement was generally feeling more limited. The following day he woke up with his neck and shoulder much more stiff, due to concern for infection his advised him to start taking his ciprofloxacin (prescribed for primary sclerosing cholangitis). Over the past 2 days he has struggled to lift his right arm at all and his noticed it becoming more swollen. Yesterday she started to noticed erythema. Severity currently 2/10 at rest. Worse on shoulder movement. His called his orthopedic office today and after an emergent appointment, aspiration concerning for infection and pre-operative lab work it was recommended for direct admission. He denies any fevers or chills but has had multiple other infections in the past presenting in similar ways and generally does not mount a significant immune response. Principal Diagnosis Deltoid abscess Discharge Exam Constitutional WD/WN, vitals as above Eyes PERRL, conjunctivae normal, anicteric sclerae Respiratory normal respiratory effort, lungs clear to auscultation Cardiovascular Rate/Rhythm: regular rate and regular rhythm Heart Sounds: no gallop, no murmur and no cardiac rub Gastrointestinal (Abdomen) Inspection/Auscultation: normal bowel sounds; abdomen not distended Percussion/Palpation: abdomen soft; abdomen nontender and no guarding Skin well approximated surgical site over right shoulder, no surrounding erythema, no surrounding tenderness, no surrounding fluctuance Discharge Data Allergies Allergy/AdvReac Type Severity Reaction Status Date / Time Egg Derived Allergy Intermediate RASH WITH Verified 10/02/20 14:49 LARGE QUANTITIES metformin Allergy Intermediate GI ISSUES Verified 10/02/20 14:49 pollen extracts Allergy Intermediate ITCHY Verified 10/02/20 14:49 EYES, SNEEZING, CONGESTION codeine AdvReac Intermediate N/V, Verified 10/02/20 14:49 HYPOTENSTION fentanyl AdvReac Intermediate EXTREME Verified 10/02/20 14:49 NAUSEA; BP DROPS meperidine AdvReac Intermediate N/V, Verified 10/02/20 14:49 HYPOTENSTION morphine AdvReac Intermediate N/V, Verified 10/02/20 14:49 HYPOTENSTION Flu Virus Vaccine Allergy Intermediate AVOIDS DUE Uncoded 10/02/20 14:49 TO EGG ALLERGY NARCOTICS AdvReac Intermediate N/V, Uncoded 10/02/20 14:49 HYPOTENSTION Consultations 10/02/20 19:11 Consult Orthopedic Surgery Routine 10/05/20 04:22 Consult General Surgery Routine Procedures Performed Operation Date: 10/03/20 09:25 Actual Procedures p Right Shoulder Abscess Irrigation and Debridement(Right) - Gil Monet DO Hospital Course (1) Abscess of right shoulder: Jordy Tesfaye is a 80y/o M with PMH significant for primary sclerosing cholangitis, BPH, and coronary artery disease; who presented to the hospital for concern of shoulder joint infection. Abscess of right deltoid: -POD #2 of I&D of abscess -surgical note indicates no involvement of the prosthetic or of the joint -Aspirate from outpatient demonstrating quiroga-sensitive klebsiella -Blood cultures negative -Wound aspirate from OR demonstrating gram negative bacilli -continue Ceftriaxone 2g IV daily for additional 11 days Primary sclerosing cholangitis: -concern that infection/abscess potentially represents previous seeding as contribution from PSC flare -patient was scheduled to have ERCP on 10/10 with GI at [facility] -attempted to reach out to primary Soccer Referee to discuss potential complications of PSC for this new development and role of repeat ERCP at this time Type 2 diabetes mellitus: -Not taking any outpatient medications for diabetes. -A1c 7.1 BPH loc w/o ur obs/LUTS: -Continue alfuzosin 10 mg PO QPM Coronary artery disease: -continue metoprolol tartrate 50 mg PO QAM, 75 mg PO QPM (2) Primary sclerosing cholangitis: (3) Type 2 diabetes mellitus: Total Time Total Time Spent Total Time Spent (In Minutes): <30 Discharge Plan Discharge Items Patient Disposition: Home - Self-Care Reason For Visit: INFECTED PROSTHETIC JOINT Discharge Diagnosis: muscle abscess Activity: Per Instructions section Non-emergency contact: Primary Care Provider and Soccer Referee Call non-emergency contact if: you have any medication questions, your symptoms worsen and you have a fever Follow-up/Referrals: Tom Bucio MD [Primary Care Provider] - Diet: Carb Consistent or DM2 and Heart Healthy Addtl Attending Provider Instructions: You were seen and admitted for concern of infected shoulder joint; during this admission, you were evaluated by your orthopaedic surgeon and had the abscess in your deltoid muscle cleared out. Fortunately this infection did not include your replaced shoulder, and did not appear to be present within your blood. The bacteria that grew from the cultures taken from your shoulder showed that it responded well to the intravenous antibiotics, and was sensitive to the medications we were giving you. Now that you are being discharged, we are going to continue to have you receive these antibiotics once a day for an additional 11 days. This should result in completed elimination of the infection. As the bacteria that grew in the abscess is typically present in your gastrointestinal tract, we have reach out to your Soccer Referee to see if the cancelled ERCP could be rescheduled in the coming weeks. Pending Studies at Discharge: No Stand-Alone Forms: My [facility], Smoking Cessation Medications and DC Order Prescriptions: New ceftriaxone 2 gram recon soln 1 g IV DAILY 11 Days RF: 0 Continued metoprolol tartrate 50 mg tablet 50 mg PO QAM RF: 0 metoprolol tartrate 50 mg tablet 75 mg PO HS Qty: 135 RF: 3 folic acid 1 mg tablet 1 mg PO QDL RF: 0 alendronate 70 mg Tablet 70 mg PO WK RF: 0 misoprostol 200 mcg Tablet 200 mcg PO QAM RF: 0 ursodiol 300 mg Capsule 300 mg PO BIDM RF: 0 allopurinol 300 mg Tablet 300 mg PO QAM RF: 0 finasteride 5 mg Tablet 5 mg PO QAM RF: 0 alfuzosin 10 mg Tablet Extended Release 24 Hr 10 mg PO QPM RF: 0 Eye Drops Advanced Relief 0.05-0.1-1-1 % Drops 2 drp OPB AMHS RF: 0 omeprazole 20 mg Tablet,Delayed Release (Dr/Ec) 20 mg PO QAM RF: 0 Caltrate 600 plus D 600 mg (1,500 mg)-800 unit Tablet,Chewable 1 tab PO QDL RF: 0 Seymour 3-6-9 1,200 mg Capsule 1 cap PO QAM RF: 0 magnesium oxide 400 mg magnesium Tablet 400 mg PO QAM RF: 0 rosuvastatin 10 mg Tablet 10 mg PO HS RF: 0 Dry Eye Seymour Benefits 667-250 mg-unit capsule 3 cap PO QAM RF: 0 aspirin 81 mg Tablet,Delayed Release (Dr/Ec) 81 mg PO HS RF: 0 aspirin 325 mg Tablet,Delayed Release (Dr/Ec) 325 mg PO DAILY PRN (Reason: Migraine Headache) RF: 0 meclizine 25 mg Tablet 25 mg PO DAILY PRN (Reason: Vertigo) RF: 0 diclofenac sodium 75 mg Tablet,Delayed Release (Dr/Ec) 75 mg PO QAM RF: 0 cranberry 500 mg Capsule 500 mg PO QAM RF: 0 PreserVision AREDS 7,160-113-100 qpdw-wy-havx Tablet 1 tab PO BIDM RF: 0 loratadine [Claritin] 10 mg Tablet 10 mg PO QAM RF: 0 Discontinued ciprofloxacin HCl [Cipro] 500 mg Tablet 500 mg PO BID RF: 0 Discharge Orders: Discharge Order (Routine); Ordered 10/05/20 Ordered By: Tree Salazar/Other Patient Handouts: High Blood Sugar (Hyperglycemia), Managing Type 2 Diabetes, 5 Steps for Eating Healthier, Managing Diabetes: The A1C Test Admission Data Admit Date/Time: 10/02/20 17:39 Attending Provider: Viktor Emerson Admit Provider: Shakeel Ryder Primary Care Provider: Tom Bucio Other Providers: Shakeel Ryder ; Gil Monet ; Terrence Grubbs ; Niels,Kaila Other Interventions: Discharge Summary Assessment (RN) Last Done: 10/05/20 12:38 Supervising Physician Co-Signing Physician Notes I personally examined the patient and verified all [place] points of history and exam, discussed case, and agree with decision making with Dr Bajwa discussed discharge plan vitals noted nad heent nc at mmm R arm dressed. no tracking erythema noted septic shoulder - gram neg - ?hematologic seeding from cholangitis seems most likely. 14 days iv abx - finish w rocephin primary sclerosing cholangitis - normally gets dilated ~[id number], notes it's been 7. concern that this is allowing a bit of an "open door" for hematogenous seeding. for f/u at [facility] in short order otherwise as above
[2020-10-05] MEDS: FOLIC ACID 1 MG TAB PO SCH (12:32)
[2020-10-05] MEDS: CALCIUM 600MG + VIT D 400 IU TAB PO SCH (12:32)
--- NOTE | 2020-10-05 20:07 | Billing Data ---
Date of Service October 05, 2020 Coding Level of Care Code D/C Day Management <30 mins
--- NOTE | 2020-10-11 13:02 | Coding Query ---
To promote full compliance with coding requirements relating to patient care, provider participation is requested in all cases of recruiter specialist uncertainty. Please assist us with the question(s) below: Coding Question(s): The diagnosis below was documented in the H&P, then subsequently fell off all further documentation. Please indicate if it is still a possible diagnosis or ruled out. Physician's Response(s): HYPONATREMIA ( x ) Diagnosed and POA and not really of clinical relevance ( ) Diagnosed and not POA ( ) Ruled out ( ) Other (please specify) MTDD
--- NOTE | 2020-10-11 13:10 | Coding Query ---
CODING QUERY To promote full compliance with coding requirements relating to patient care, provider participation is requested in all cases of mitochondrial disorders counselor uncertainty. Please assist us with the question(s) below: Coding Question(s): There is documentation on the Discharge Summary of Deltoid Abscess of the right shoulder and documentation that surgical note indicates no involvement of the prosthetic or of the joint, and lower on the Discharge Summary there is documentation of septic shoulder. Please specify below, in your clinical opinion, regarding septic shoulder. ( x ) Septic Shoulder is Deltoid Abscess of the right shoulder ( ) Septic Shoulder is Arthritis, pyogenic or pyemic of the right shoulder Joint ( ) Septic Shoulder is Other: Please Specify Physician's Response(s): Thank you Nancy Aguayo Principal Diagnosis: "that condition established after study, to be chiefly responsible for occasioning the admission of the patient to the hospital for care." Co-Existing Principal Diagnosis: "when two or more diagnoses equally meet the criteria for principal diagnosis as determined by the circumstances of admission, diagnostic work up, and/or therapy provided, and the Alphabetic Index, Tabular List, or another coding guideline does not provide sequencing direction, any one of the diagnoses may be sequenced first." "When the physician has documented what appears to be a current diagnosis in the body of the record, but has not included the diagnosis in the final diagnostic statement, the physician should be asked whether the diagnosis should be added." (Source Coding [facility] 2 QTR90. p3-4) DUNG
== END 2020-10-05 15:06 | disposition home or self-care (01) | DRG 501 ==
LOC: 3E 17:39 → SUATTDRO 17:39

== ENCOUNTER 2021-02-09 11:07 | Inpatient (IN) ==
[2021-02-09 12:38] LABS: Appearance Urine Turbid (Clear); Color Urine Red; Specific Gravity Urine 1.025 (1.000-1.030)
[2021-02-09 13:17] LABS: Epithelial Cell Urine 0-5 /lpf (0-5); RBC Urine >30 /hpf (0-4)
[2021-02-09 13:18] LABS: Bacteria Urine Negative (Negative)
[2021-02-09 13:19] LABS: Alanine Aminotransferase 23 U/L (12-78); Albumin Level 2.6 gm/dl (3.4-5.0); Aspartate Aminotransferase 23 U/L (15-37); BUN Creatinine Ratio 18.8 (10-20); Blood Urea Nitrogen 13 mg/dl (7-18); Calcium 8.2 mg/dl (8.5-10.1); Carbon Dioxide 26 mmol/L (21-32); Chloride 109 mmol/L (98-107); Est GFR (African American) 101.3 ml/min; Est GFR (Non-African American) 87.4 ml/min; Glucose 201 mg/dl (70-99); Lipase 114 U/L (73-393); Potassium 3.7 mmol/L (3.5-5.1); Sodium 138 mmol/L (136-145)
[2021-02-09 13:22] LABS: Albumin Globulin Ratio 0.7 (0.9-2); Alkaline Phosphatase 166 U/L (45-117); Bilirubin,Total 1.4 mg/dl (0.2-1); Globulin 3.6 gm/dl (2.5-4.0); Total Protein 6.2 gm/dl (6.4-8.2)
[2021-02-09 13:37] LABS: Basophils # (auto) 0.01 K/uL (0-0.2); Basophils % (auto) 0.2 %; Eosinophils # (auto) 0.05 K/uL (0-0.5); Eosinophils % (auto) 0.9 %; Giant Platelets 2+; Hematocrit (blood only) 31.7 % (42-52); Hemoglobin 10.3 g/dL (14.0-18.0); Lymphocytes % (auto) 11.3 %; Mean Corpuscular Hemoglobin 30.5 pg (25-34); Mean Corpuscular Hgb Conc 32.5 g/dL (32-36); Mean Corpuscular Volume 93.8 fL (80-100); Monocytes # (auto) 0.38 K/uL (0.11-0.59); Monocytes % (auto) 7.2 %; Neutrophils # (auto) 4.25 K/uL (1.4-6.5); Neutrophils % (auto) 80.4 %; Platelet Count 74 K/uL (130-400); Platelet Estimate Decreased (Normal); RDW Coefficient of Variation 19.2 % (11.5-14.5); Red Blood Count 3.38 M/uL (4.7-6.1); White Blood Count 5.29 K/uL (4.8-10.8)
--- NOTE | 2021-02-09 14:11 | CT Scan Report ---
ABDOMEN AND PELVIS CT WITHOUT CONTRAST CT DOSE: 436.06 mGy.cm HISTORY: Acute hematuria hematuria TECHNIQUE: Multiaxial CT images of the abdomen and pelvis were performed without contrast. A dose lo wering technique was utilized adhering to the principles of ALARA. COMPARISON STUDY: CT abdomen and pelvis 05/28/2019 lumbar spine radiographs 11/29/2020. FINDINGS: Moderate cardiomegaly with coronary artery calcifications. There are fibrofatty changes of the left ventricular apex suggest prior myocardial infarction. Trace pleural effusions with dependent bibasilar opacities suggestive of atelectasis. Mild cylindrical bibasilar bronchiectasis. No pneumat osis or pneumoperitoneum. Unchanged spinal megaly measuring up to approximately 16 cm in length. Mild to moderate generalized pancreatic atrophy. Unremarkable adrenal glands. Cholecystectomy. Intrahepat ic and extrahepatic biliary ductal dilation with pneumobilia. Chronic associated biliary wall thicken ing with cirrhosis. No discrete hepatic mass identified. Unchanged heterogeneity of the right hepatic lobe. No urolith or obstructive uropathy. Urinary bladder wall thickening with trabeculation and numerous b ladder diverticula. A Banks catheter is present with moderate intraluminal air, likely secondary to r otation. Moderate hemorrhage within the dependent urinary bladder. Prostamegaly. Perivesicular strand ing. Trace dependent free fluid within the pelvis with mild generalized body wall and mesenteric donna a. Moderate atherosclerotic plaque of the abdominal aorta. No aneurysm or adenopathy. Hyperdense material is noted within the gastric lumen. Colectomy with left lower quadrant ileostomy. A large parastomal hernia containing mesenteric fat and small bowel loops redemonstrated which appear s similar to increased in size from comparison. There is no bowel obstruction. Air-fluid levels are n oted within prominent loops of small bowel within the hernia sac measuring up to 2.7 cm. A small darryl l containing right lower abdominal wall hernias redemonstrated with diastases of 3.5 cm, unchanged. D egenerative changes of the spine. Chondrocalcinosis of the hips. Demineralized appearance of the bone s. Chronic L2 and L4 compression deformities appear unchanged. There is progressive compression invol ving the T12 vertebral body which has worsened from 11/29/2020. 4 mm associated retropulsion. IMPRESSION: 1. Prostamegaly with evidence of chronic bladder outlet obstruction. Urinary bladder wall thickening and perivesicular stranding should be correlated with urinalysis to exclude cystitis. 2. A Banks catheter is present within the urinary bladder along with a moderate amount of intralumina l hemorrhage. 3. No urolith or obstructive uropathy. 4. Cirrhosis with splenomegaly compatible with portal venous hypertension. 5. Prior colectomy with left lower quadrant ileostomy. Stable to increased size of the large left low er quadrant parastomal bowel containing hernia. No bowel obstruction 6. Progressive T12 compression deformity with 4 mm retropulsion, worsened from 11/29/2020. 7. Additional findings as above. ACT 112: Negative or not required by law. The above report was generated using voice recognition software. It may contain grammatical, syntax o r spelling errors. Electronically signed by: Jax Gee M.D. 02/09/2021 2:09 PM
[2021-02-09 14:18] LABS: Creatine Kinase 53 U/L (39-308); Creatine Kinase MB 1.5 ng/ml (0.5-3.6); Troponin I < 0.015 ng/ml (0-0.045)
--- NOTE | 2021-02-09 14:26 | History & Physical Report ---
Date of Service February 09, 2021 Assessment & Plan (1) Gross hematuria: Plan: etiology - bladder stone (has history of such)? BPH? UTI? other? [facility] [place]. 3-way dos santos to be placed; then CBI to be initiated. Oxybutynin prn for bladder spasm. Pyridium prn bladder pain. Dilaudid 0.25mg q6h prn pain. Urine cx sent from ER. Rocephin x 1 given in ER; will hold on additional antibiotics while awaiting the urine cx but if any growth then resume abx. Had been receiving lovenox injections at [facility] then [facility] which will certainly enhance any bleeding. Hold on lovenox. repeat CBC later tonight, then again in am for stability. (2) BPH loc w/o ur obs/LUTS: Plan: cont finasteride cont flomax dos santos (3) Right tibial fracture: Plan: with right fibular fracture suffered 1 week ago today admitted to [facility] in [place] last weekend seen by ortho there - nonoperative Rx advised immobilizer with NWB to RLE for at least [address] Myrick, [facility], yesterday - no change in current care plan the tib-fib fracture is BELOW the right TKR hardware pain control prn (4) Right fibular fracture: Plan: see above in #3 check 25-OH vit D in am pain control prn (5) Type 2 diabetes mellitus: Plan: a1c 7.1% in September bsgs ac/hs DM diet novolog sliding scale (6) 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 follows with [facility]. no recent progression of cirrhosis. recheck LFTs in am for stability. checked ammonia level due to reports of fatigue -- negative. INR checked and acceptable. 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 platelets are about at baseline could be contributing to gross hematuria thus trend the platelet levels (8) CAD (coronary artery disease): Plan: history of no ischemic symptoms at this time cont metoprolol - need to check dosing (100mg of metoprolol tartrate qam?) cont statin (9) H/O recurrent transient ischemic attacks: Plan: noted not on secondary prevention (no asa, etc) (10) Fatigue: Plan: check ammonia check TSH follow urine culture (11) Compression fracture of thoracic spine, non-traumatic: Plan: T12, suffered in November CT abd/pelvis shows worsening retropulsion of compression fracture need for spine consultation?? strongly consider neuro exam of legs wnl however 25-OH vit D in am again consider ortho-spine consultation cont calcitonin nasal spray (12) DVT prophylaxis: Plan: SCD on left leg hold chemical means due to gross hematuria Plan: extensively updated at bedside care plan d/w Dr Silva from urology will need PT, OT in light of weakness and [facility] stay due to recent fall the c-spine was imaged as he was c/o neck pain c-spine neg for fracture History of Present Illness Chief Complaint: blood in urine Primary Care Provider: Tom Bucio MD 80yo male - numerous medical problems including h/o ulcerative colitis with ileostomy in place (prior subtotal colectomy), CAD with MT, h/o cardiac arrest, h/o primary sclerosing cholangitis followed by [facility] twice yearly, and recent right tib-fracture suffered in the [place] area last Friday. Patient and his were in the [place] region 1 week ago because his was obtaining a colonoscopy by her long-standing GI physician. Apparently he was trying to walk into the endoscopy building, got his foot stuck in a floor mat, and the glass door banged into his right leg, fracturing the tib-fib just below the right knee. He was evaluated and subsequently admitted to [facility], seen by ortho, and nonoperative management was advised with 6 weeks of immobilization and NWB status to [facility]. Remained hospitalized there until Friday02/06/21 at which point he was d/c to [facility]. Has been rehabbing since then. Overnight - had 2 episodes of gross hematuria. Then, this am, had bladder pain with spasm and difficulty voiding. Attempts at catheterization at [facility] were unsuccessful and thus he was brought to [facility]. In the ER he had a dos santos placed with gross hematuria obtained. During my assessment he c/o fatigue since arriving at [facility]. He complains of mild neck pain. He cannot recall if he had imaging of the neck at [facility]. NO fevers or chills. He also complains of chronic mid-thoracic back pain, and also right leg pain due to his fractures. Allergies Allergy/AdvReac Type Severity Reaction Status Date / Time Egg Derived Allergy Intermediate RASH WITH Verified 02/09/21 14:34 LARGE QUANTITIES metformin Allergy Intermediate GI ISSUES Verified 02/09/21 14:34 pollen extracts Allergy Intermediate ITCHY Verified 02/09/21 14:34 EYES, SNEEZING, CONGESTION codeine AdvReac Intermediate N/V, Verified 02/09/21 14:34 HYPOTENSTION fentanyl AdvReac Intermediate EXTREME Verified 02/09/21 14:34 NAUSEA; BP DROPS meperidine AdvReac Intermediate N/V, Verified 02/09/21 14:34 HYPOTENSTION morphine AdvReac Intermediate N/V, Verified 02/09/21 14:34 HYPOTENSTION Flu Virus Vaccine Allergy Intermediate AVOIDS DUE Uncoded 02/09/21 14:34 TO EGG ALLERGY NARCOTICS AdvReac Intermediate N/V, Uncoded 02/09/21 14:34 HYPOTENSTION Home Medications Medication Instructions Recorded Confirmed Type alendronate 70 mg tablet (Fosamax) 70 mg PO WK 09/29/18 02/09/21 History allopurinol 300 mg tablet 300 mg PO QAM 09/29/18 02/09/21 History finasteride 5 mg tablet (Proscar) 5 mg PO QAM 09/29/18 02/09/21 History magnesium oxide 400 mg PO QAM 09/29/18 02/09/21 History ursodiol 300 mg capsule 300 mg PO BIDM 09/29/18 02/09/21 History folic acid 1 mg tablet 1 mg PO QAM 02/02/19 02/09/21 History cranberry 500 mg capsule 500 mg PO QAM 04/02/19 02/09/21 History meclizine 25 mg tablet 25 mg PO TID PRN 04/02/19 02/09/21 History (Medi-Meclizine) loratadine 10 mg tablet (Claritin) 10 mg PO QAM PRN 06/24/19 02/09/21 History Lactobacillus acidophilus 0 mg PO BID 02/09/21 02/09/21 History (Acidophilus) atorvastatin 20 mg tablet (Lipitor) 20 mg PO HS 02/09/21 02/09/21 History calcitonin (salmon) 200 1 spray INTRANASAL QAM 02/09/21 02/09/21 History unit/actuation nasal spray calcium carbonate 500 mg (1,250 1 tab PO QAM 02/09/21 02/09/21 History mg)-vitamin D3 200 unit tablet (Calcium 500 + D) docusate sodium 100 mg capsule 100 mg PO BID 02/09/21 02/09/21 History (Colace) insulin regular human 100 unit/mL 1 sliding scale dose SUBCUT 02/09/21 02/09/21 History injection solution (Humulin R USEASDIRECTD Regular U-100 Insulin) melatonin 3 mg tablet (Melatin) 3 mg PO HS 02/09/21 02/09/21 History metoprolol tartrate 100 mg tablet 100 mg PO QAM 02/09/21 02/09/21 History (Lopressor) misoprostol 100 mcg tablet 200 mcg PO QAM 02/09/21 02/09/21 History (Cytotec) omega 1-qnx-ssp-fish oil 1,000 mg 1 cap PO QID 02/09/21 02/09/21 History (120 mg-180 mg) capsule (Fish Oil) pantoprazole 40 mg tablet,delayed 40 mg PO DAILYBB 02/09/21 02/09/21 History release (Protonix) polyethylene glycol 3350 17 gram 17 g PO QDL PRN 02/09/21 02/09/21 History oral powder packet (Miralax) tamsulosin 0.4 mg capsule (Flomax) 0.4 mg PO QAM 02/09/21 02/09/21 History vitamin A-vitamin C-vit E-min 1 tab PO BID 02/09/21 02/09/21 History tablet (Ocutabs) Past Med/Surg History Medical History Abscess of right shoulder (~09/2020) Benign prostatic hyperplasia with urinary obstruction CAD (coronary artery disease) STENT X 1 (2001) AT [facility] Enlarged prostate High cholesterol History of IBS History of kidney stones History of myocardial infarction STENT X 1 (2001) S/P B/L TKA Stable; Has not had to use NTG since stent placement HTN (hypertension) Hx of basal cell carcinoma Hx of deep venous thrombosis LLE "A LONG TIME AGO" Hx of ulcerative colitis S/p colectomy- ileostomy 1990 and 1994 Hx of vertigo Ileostomy in place Left lower lobe pneumonia 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 Aneurysm present since MT in 2001 per cardio Macular degeneration Neurogenic bladder NO DOS SANTOS CATHETER 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 PVCs (premature ventricular contractions) Asymptomatic per patient Right tibial fracture Sciatica TIA (transient ischemic attack) TIA vs complex migraine February 2019 Type 2 diabetes mellitus Surgical History History of anesthesia reaction SLOW TO WAKE, BREATHING ISSUES, NAUSEA AND VOMITING History of appendectomy History of arthroplasty of right shoulder Right TSA= 05/24/16= Grade 1 view, MAC#4 at [facility] History of cholecystectomy History of colonoscopy History of cystoscopy History of ERCP MULTIPLE History of exploratory laparotomy X2 "COMMON DUCT RECONSTRUCTION" History of hand surgery RT/LEFT THUMBS History of lumbar laminectomy History of total bilateral knee replacement Hx of bilateral cataract extraction Family History Father Myocardial infarction Family/Other Hypertension Nephrolithiasis Sister FH: ovarian cancer Other Family history of breast cancer in mother Social History (Updated 02/09/21 @ 15:10 by Shakeel Mccord) Smoking Status: Never smoker Second Hand Exposure: No; Do You Dip or Chew Tobacco: No; Tobacco Cessation Education Requested by Patient: No Hx Alcohol Use: No Hx Substance Use: No Preferred Language: Lithuanian Communication Ability: Effective Warehouse Specialist Required: No Beliefs That Will Affect Care: None marital status: Current Living Situation: Spouse and Personal Care Facility Current Living Situation Comment: Currently in [facility] post fall and leg fracture current occupational status: retired current occupation: [employer] Other Information That Helps Us Care for You: No Feels Safe at Home: Yes Safety Concerns: Feels Safe At This Time Assistive Devices: Brace/Splint/Immobilizer Review of Systems Constitutional: + fatigue; no fever, no chills, no anorexia (eating well at [facility] ) and no weight loss Eyes: no worsening vision Ear, Nose, Mouth, Throat: no ear pain, no sore throat and no dysphagia Respiratory: no cough and no dyspnea Cardiovascular: no chest pain Gastrointestinal: no abdominal pain, no nausea, no vomiting and no blood in stools Genitourinary: + dysuria, + difficulty urinating and + hematuria Musculoskeletal: + back pain and + neck pain Integumentary: no rash Neurologic: + generalized weakness; no numbness Psychiatric: no depression Endocrine: reports diabetes, but diet controlled Hematologic / Lymphatic: + easy bruising Physical Exam Constitutional: + frail appearing; no acute distress and no altered mental status Eyes: PERRL ENMT: external ear and nose normal, oropharynx normal Neck: trachea midline, no thyromegaly normal visual inspection; neck nontender Respiratory: normal respiratory effort, lungs clear to auscultation Cardiovascular: Rate/Rhythm: regular rate and regular rhythm Heart Sounds: normal S1 and normal S2 Vessels: posterior tibial pulses present and dorsalis pedis pulses present; no JVD Extremities: + edema (1+ right foot/leg; <1+ left foot ) Gastrointestinal (Abdomen): Inspection/Auscultation: normal bowel sounds; abdomen not distended Percussion/Palpation: abdomen soft and + splenomegaly; abdomen nontender and no hepatomegaly ileostomy in place left abdomen; numerous abdominal wall scars Musculoskeletal: right leg in immobilizer from just below right hip to the foot; b/l TKR scars Skin: + pallor; no rashes Neurologic: deep tendon reflexes 2+ bilaterally (upper extremities ) and moves all extremities (right leg strength limited by the immobilizer but distal strength- foot 5/5) Motor/Sensory: no asterixis Psychiatric: A+Ox3, euthymic affect Genitourinary: dos santos in place - gross hematuria Lymphatic: no cervical lymphadenopathy Results & Data Results & Data ([facility]) Vital Signs (Past 12 Hours) Vital Signs Temp Pulse Pulse Resp BP BP Pulse Ox 02/09/21 13:05 75 20 96 02/09/21 13:01 75 20 146/87 H 02/09/21 11:50 36.9 C 87 18 169/84 H 94 Laboratory Results Laboratory Results - last 24 hr 02/09/21 02/09/21 02/09/21 12:10 12:10 12:10 WBC 5.29 RBC 3.38 L Hgb 10.3 L Hct 31.7 L MCV 93.8 MCH 30.5 MCHC 32.5 RDW Std Deviation 64.0 H RDW Coeff of Chani 19.2 H Plt Count 74 L Immature Gran % (Auto) 0.0 Neut % (Auto) 80.4 Lymph % (Auto) 11.3 Butler % (Auto) 7.2 Eos % (Auto) 0.9 Baso % (Auto) 0.2 Neut # (Auto) 4.25 Lymph # (Auto) 0.60 L Butler # (Auto) 0.38 Eos # (Auto) 0.05 Baso # (Auto) 0.01 Immature Gran # (Auto) 0.00 Platelet Estimate Decreased L Giant Platelets 2+ PT INR Sodium 138 Potassium 3.7 Chloride 109 H Carbon Dioxide 26 Anion Gap 3.0 BUN 13 Creatinine 0.71 Est Cr Clr Drug Dosing Not Reportable Est GFR ( Amer) 101.3 Est GFR (Non-Af Amer) 87.4 BUN/Creatinine Ratio 18.8 Glucose 201 H POC Glucose Calcium 8.2 L Total Bilirubin 1.4 H AST 23 ALT 23 Alkaline Phosphatase 166 H Ammonia Total Creatine Kinase 53 CK-MB (CK-2) 1.5 CK/CKMB % Calc 2.8 Troponin I < 0.015 Total Protein 6.2 L Albumin 2.6 L Globulin 3.6 Albumin/Globulin Ratio 0.7 L Lipase 114 TSH Urine Color Urine Appearance Urine pH Ur Specific Pearson Urine Protein Urine Glucose (UA) Urine Ketones Urine Blood Urine Nitrite Urine Bilirubin Urine Urobilinogen Ur Leukocyte Esterase Urine RBC Urine WBC Ur Epithelial Cells Urine Bacteria COVID-19 Eval Order SARS-CoV-2 (PCR) 02/09/21 02/09/21 02/09/21 13:40 13:40 15:37 WBC RBC Hgb Hct MCV MCH MCHC RDW Std Deviation RDW Coeff of Chani Plt Count Immature Gran % (Auto) Neut % (Auto) Lymph % (Auto) Butler % (Auto) Eos % (Auto) Baso % (Auto) Neut # (Auto) Lymph # (Auto) Butler # (Auto) Eos # (Auto) Baso # (Auto) Immature Gran # (Auto) Platelet Estimate Giant Platelets PT 11.9 INR 1.2 H Sodium Potassium Chloride Carbon Dioxide Anion Gap BUN Creatinine Est Cr Clr Drug Dosing Est GFR ( Amer) Est GFR (Non-Af Amer) BUN/Creatinine Ratio Glucose POC Glucose Calcium Total Bilirubin AST ALT Alkaline Phosphatase Ammonia Total Creatine Kinase CK-MB (CK-2) CK/CKMB % Calc Troponin I Total Protein Albumin Globulin Albumin/Globulin Ratio Lipase TSH Urine Color Urine Appearance Urine pH Ur Specific Pearson Urine Protein Urine Glucose (UA) Urine Ketones Urine Blood Urine Nitrite Urine Bilirubin Urine Urobilinogen Ur Leukocyte Esterase Urine RBC Urine WBC Ur Epithelial Cells Urine Bacteria COVID-19 Eval Order Covid19 at [facility] SARS-CoV-2 (PCR) NEGATIVE 02/09/21 02/09/2121 17:22 18:26 18:26 WBC 5.95 RBC 3.29 L Hgb 10.0 L Hct 30.9 L MCV 93.9 MCH 30.4 MCHC 32.4 RDW Std Deviation 65.1 H RDW Coeff of Chani 19.0 H Plt Count 76 L Immature Gran % (Auto) Neut % (Auto) Lymph % (Auto) Butler % (Auto) Eos % (Auto) Baso % (Auto) Neut # (Auto) Lymph # (Auto) Butler # (Auto) Eos # (Auto) Baso # (Auto) Immature Gran # (Auto) Platelet Estimate Decreased L Giant Platelets PT INR Sodium Potassium Chloride Carbon Dioxide Anion Gap BUN Creatinine Est Cr Clr Drug Dosing Est GFR ( Amer) Est GFR (Non-Af Amer) BUN/Creatinine Ratio Glucose POC Glucose 160 H Calcium Total Bilirubin AST ALT Alkaline Phosphatase Ammonia 32.0 Total Creatine Kinase CK-MB (CK-2) CK/CKMB % Calc Troponin I Total Protein Albumin Globulin Albumin/Globulin Ratio Lipase TSH Urine Color Urine Appearance Urine pH Ur Specific Pearson Urine Protein Urine Glucose (UA) Urine Ketones Urine Blood Urine Nitrite Urine Bilirubin Urine Urobilinogen Ur Leukocyte Esterase Urine RBC Urine WBC Ur Epithelial Cells Urine Bacteria COVID-19 Eval Order SARS-CoV-2 (PCR) 02/09/21 02/09/21 02/09/21 18:26 20:36 Unknown WBC RBC Hgb Hct MCV MCH MCHC RDW Std Deviation RDW Coeff of Chani Plt Count Immature Gran % (Auto) Neut % (Auto) Lymph % (Auto) Butler % (Auto) Eos % (Auto) Baso % (Auto) Neut # (Auto) Lymph # (Auto) Butler # (Auto) Eos # (Auto) Baso # (Auto) Immature Gran # (Auto) Platelet Estimate Giant Platelets PT INR Sodium Potassium Chloride Carbon Dioxide Anion Gap BUN Creatinine Est Cr Clr Drug Dosing Est GFR ( Amer) Est GFR (Non-Af Amer) BUN/Creatinine Ratio Glucose POC Glucose 172 H Calcium Total Bilirubin AST ALT Alkaline Phosphatase Ammonia Total Creatine Kinase CK-MB (CK-2) CK/CKMB % Calc Troponin I Total Protein Albumin Globulin Albumin/Globulin Ratio Lipase TSH 1.550 Urine Color Red Urine Appearance Turbid A Urine pH Ur Specific Pearson 1.025 Urine Protein Urine Glucose (UA) Urine Ketones Urine Blood Urine Nitrite Urine Bilirubin Urine Urobilinogen Ur Leukocyte Esterase Urine RBC >30 H Urine WBC 10-30 H Ur Epithelial Cells 0-5 Urine Bacteria Negative COVID-19 Eval Order SARS-CoV-2 (PCR) Diagnostic Findings Abdomen/Pelvis CT 02/09/21 11:[address] WITHOUT CONTRAST CT DOSE: 436.06 mGy.cm HISTORY: Acute hematuria hematuria TECHNIQUE: Multiaxial CT images of the abdomen and pelvis were performed without contrast. A dose lowering technique was utilized adhering to the principles of ALARA. COMPARISON STUDY: CT abdomen and pelvis 05/28/2019 lumbar spine radiographs 11/29/2020. FINDINGS: Moderate cardiomegaly with coronary artery calcifications. There are fibrofatty changes of the left ventricular apex suggest prior myocardial infarction. Trace pleural effusions with dependent bibasilar opacities suggestiv e of atelectasis. Mild cylindrical bibasilar bronchiectasis. No pneumatosis or pneumoperitoneum. Unchanged spinal megaly measuring up to approximately 16 cm in length. Mild to moderate generalized pancreatic atrophy. Unremarkable adrenal glands. Cholecystectomy. Intrahepatic and extrahepatic biliary ductal dilation with pneumobilia. Chronic associated biliary wall thickening with cirrhosis. No discrete hepatic mass identified. Unchanged heterogeneity of the right hepatic lobe. No urolith or obstructive uropathy. Urinary bladder wall thickening with trabeculation and numerous bladder diverticula. A Dos Santos catheter is present with moderate intraluminal air, likely secondary to rotation. Moderate hemorrhage within the dependent urinary bladder. Prostamegaly. Perivesicular stranding. Trace dependent free fluid within the pelvis with mild generalized body wall and mesenteric edema. Moderate atherosclerotic plaque of the abdominal aorta. No aneurysm or adenopathy. Hyperdense material is noted within the gastric lumen. Colectomy with left lower quadrant ileostomy. A large parastomal hernia containing mesenteric fat and small bowel loops redemonstrated which appears similar to increased in size from comparison. There is no bowel obstruction. Air-fluid levels are noted within prominent loops of small bowel within the hernia sac measuring up to 2.7 cm. A small bowel containing right lower abdominal wall hernias redemonstrated with diastases of 3.5 cm, unchanged. Degenerative changes of the spine. Chondrocalcinosis of the hips. Demineralized appearance of the bones. Chronic L2 and L4 compression deformities appear unchanged. There is progressive compression involving the T12 vertebral body which has worsened from 11/29/2020. 4 mm associated retropulsion. IMPRESSION: 1. Prostamegaly with evidence of chronic bladder outlet obstruction. Urinary bladder wall thickening and perivesicular stranding should be correlated with urinalysis to exclude cystitis. 2. A Dos Santos catheter is present within the urinary bladder along with a moderate amount of intraluminal hemorrhage. 3. No urolith or obstructive uropathy. 4. Cirrhosis with splenomegaly compatible with portal venous hypertension. 5. Prior colectomy with left lower quadrant ileostomy. Stable to increased size of the large left lower quadrant parastomal bowel containing hernia. No bowel obstruction 6. Progressive T12 compression deformity with 4 mm retropulsion, worsened from 11/29/2020. 7. Additional findings as above. ACT 112: Negative or not required by law. The above report was generated using voice recognition software. It may contain grammatical, syntax or spelling errors. Electronically signed by: Jax Gee M.D. 02/09/2021 2:[address] 02/09/21 15:27 CT SCAN OF THE CERVICAL SPINE CLINICAL HISTORY: Recent fall. Neck pain. COMPARISON STUDY: CT angiogram of the neck dated 02/04/2019. TECHNIQUE: CT scan of the cervical spine is performed from the skull base to the upper thoracic spine. Images are reviewed in the axial, sagittal, and coronal planes. IV contrast was not administered for this examination. A dose lowering technique was utilized adhering to the principles of ALARA. CT DOSE: 254.67 mGy.cm FINDINGS: Skeletal structures: The skeletal structures are osteopenic. There is no evidence of fracture or subluxation involving the cervical spine. Vertebral body height and alignment are maintained. Anterior osteophytes are seen throughout. The odontoid process and lateral masses are intact. The atlantoaxial articulation is preserved noting productive degenerative change. The spinous processes appear intact. There is moderate multilevel cervical spondylosis. Uncovertebral and facet arthropathy contribute to foraminal narrowing at several levels. Intervertebral discs: There is advanced disc space narrowing at C5-C6, C6-C7, and C7-T1. Mild disc space narrowing is seen at the remaining cervical levels. Apparent widening of the anterior disc space at C4-C5 is unchanged from prior studies of doubtful significance. Central canal: Posterior discussed by complexes are seen at all cervical levels, and likely contribute to multilevel acquired compromise the central canal. Soft tissues: The prevertebral and paraspinous soft tissues are within normal limits. There is atherosclerotic calcification of the carotid bulbs. Calvarium: The visualized calvarium at the skull base appears intact. Brain parenchyma: Partially visualized brain parenchyma at the skull base is within normal limits noting age-related involutional change. Sinuses and mastoids: The visualized paranasal sinuses are clear. The mastoid air cells are well pneumatized. Lung apices: Clear as visualized. IMPRESSION: 1. There is no evidence of fracture or subluxation involving the cervical spine. 2. Osteopenia and spondylotic change as above. ACT 112: Negative or not required by law. Electronically signed by: Bernardino Hernandez M.D. 02/09/2021 5:09 PM EKG - my reading - NSR, flipped T waves V2, V3; flatted T wave V4; NS ST changes I/AVl; in comparison to EKG 09/2020 - no changes Code Status & VTE Plan Code Status DNR/DNI PG Care Time/CCT Total # of Minutes Spent Total Time Spent with Patient: Total time spent is greater than 50% in coordination of care (as documented) at patient's floor/unit and/or counseling patient: Coding Level of Care Code 41912 Initial Inpt Care Lvl 3 Diagnoses Right tibial fracture S82.201A Gross hematuria R31.0 Right fibular fracture S82.401A Type 2 diabetes mellitus E11.65 Diabetes mellitus complication status: with hyperglycemia Diabetes mellitus occupational therapist's assistant insulin use: without occupational therapist's assistant use Primary sclerosing cholangitis K83.0 Thrombocytopenia D69.6 CAD (coronary artery disease) I25.10 BPH loc w/o ur obs/LUTS N40.0 H/O recurrent transient ischemic attacks Z86.73 Fatigue R53.83 Compression fracture of thoracic spine, non-traumatic M48.54XA DVT prophylaxis Z29.9 (1) Type 2 diabetes mellitus Diabetes mellitus complication status: with hyperglycemia Diabetes mellitus occupational therapist's assistant insulin use: without [facility] use Qualified Code(s): E11.65 - Type 2 diabetes mellitus with hyperglycemia
[2021-02-09] MEDS ORDERED: cefTRIAXone SODIUM 2,000 MG/70 ML BAG IV STA (15:22)
--- NOTE | 2021-02-09 15:27 | Emergency Department Note ---
Impression & Plan Hematuria, Inability to urinate, Acute prostatitis ED Provider Note NAME: KENDRA HUERTA AGE: 80 SEX: M : 1940 ARRIVES VIA: Ambulance INFORMANT: Patient, outside records, PCP, EMS ED PROVIDER(S): Heber Chavarria MD CHIEF COMPLAINT: hematuria, inability to void HPI: This is an 80-year-old male who presents emergency department sent in by [facility] over concerns of the patient being unable to urinate. Records reveal reveals the patient was here in May 2019 for back pain. The patient also has a history of coronary artery disease as well as cirrhosis. Outside PCP reveals that the patient was in [place] for a tibial repair. He was sent to [facility] for rehab. This morning the patient was unable to urinate and was only able to get out small blood clots. The patient reports urinating helps his pain. He describes the pain as an aching sensation in the suprapubic region that radiates into his back. He reports nothing appears to make the pain worse. He reports never having an issue with urinating previously. EMS reports that the retirement attempted to cath the patient without success and brought the patient to the emergency department. ROS: See above HPI for pertinent positives & negatives. A total of 10 systems reviewed and were otherwise negative. PAST MEDICAL HISTORY: See Below PAST SURGICAL HISTORY: See Below FAMILY HISTORY: See Below SOCIAL HISTORY: See Below HOME MEDICATIONS: See Below ALLERGIES: See Below VITALS: See Below PHYSICAL EXAMINATION: VITAL SIGNS - Vital signs and nursing notes were reviewed. GENERAL - 80-year-old male appearing stated age who is in moderate distress. SKIN - Without rashes. HEAD - NC/AT. EYES - PERRL with EOMI bilaterally. Sclera anicteric. Palpebral conjunctiva pink and moist with no injection noted. EARS - No deformities of external structures noted on gross examination bilaterally. NOSE - Midline and without cyanosis. No epistaxis or purulent drainage noted. Septum midline without deviation or septal hematoma noted. MOUTH/OROPHARYNX - Without perioral cyanosis. Buccal mucosa pink and moist and without leukoplakia. Tongue midline with equal elevation of palate bilaterally. No tonsillar hypertrophy, erythema, or exudates noted. NECK - Neck with FROM. Supple to palpation. LUNGS - Chest wall symmetric without accessory muscle use, intercostals retractions, or central cyanosis. Normal vesicular breath sounds CTA B/L. No wheezes, rales, or rhonchi appreciated. CARDIAC - RRR with S1/S2. No murmur, rubs, or gallops appreciated. ABDOMEN - Abdominal contour without pulsations or visible masses. BS normoactive all four quadrants. tender to suprapubic region EXTREMITIES - No clubbing or peripheral cyanosis. No pretibial edema present. +3/5 radial, posterior tibial, and dorsalis pedis pulses palpated throughout. +5/5 strength noted in UE/LE bilaterally. NEUROLOGIC - Cranial nerves II through XII grossly intact. Sensory intact to light touch throughout. Patellar reflexes +2/4. PSYCH - A&Ox3 and cooperates fully with examiner. Pt is very pleasant and interacts well with examiner. MEDICAL DECISION MAKING: Patient was seen and evaluated as above in room A12. Review was performed of nursing notes and vital signs. I did review pertinent previous visits and patient history. After obtaining a thorough history and physical examination the above work up was performed. 70-year-old male who presents emergency department complaining of inability to urinate. A Dos Santos catheter was placed by here by nursing staff however the Dos Santos catheter needed to be continuously irrigated and nursing staff continue to pull out very large blood clots. Based on this nursing staff is requesting a three- way Dos Santos. Because of this I did discuss the case with urology who asked that the patient be admitted to the medicine service. In the meanwhile the patient was started on IV Rocephin. CAT scan was reviewed by me and is consistent with chronic bladder outlet obstruction. An order was placed for continuous cardiac monitoring. The monitor shows a rate of 75 with Normal SInus rhythm. The patient was evaluated during a period of high volume and high acuity during the global COVID-19 pandemic, and that diagnosis was suspected/considered upon their initial presentation. Their evaluation, treatment and testing was consistent with current guidelines for patients who present with complaints or symptoms that may be related to COVID-19. Patient was seen while provider was wearing PPE. Triage Nursing notes reviewed. Prior medical records reviewed Vital Signs: reviewed and remarkable for no significant abnormalities Differential diagnosis: Appendicitis, testicular torsion, infections, diverticulitis, UTI, obstruction, mesenteric ischemia, aortic pathology, inflammatory bowel disease, renal colic, PUD, pancreatitis, biliary pathology, hernia, volvulus, constipation, as well as other pathologies. ER treatment provided: See below Diagnostics interpreted by me: ECG: Normal sinus rhythm left axis deviation QTC is [address] elevation or depression EKG is compared to 10/02/2020 no significant changes found no ST elev ation or depression Laboratory studies: As stated above and show below. Imaging studies: See below Consultation(s): Urology, Internal Medicine Critical Care: I have personally spent greater than 30 minutes of critical care time in the direct management of this patient. This includes bedside care, interpretation of diagnostic studies, and testing, discussion with consultants, patient, and family members, and other required patient management activities. This 30 minutes is in excess of all separately billable procedures. Past Med/Surg History Medical History Abscess of right shoulder (~09/2020) Benign prostatic hyperplasia with urinary obstruction CAD (coronary artery disease) STENT X 1 (2001) AT [facility] Enlarged prostate High cholesterol History of IBS History of kidney stones History of myocardial infarction STENT X 1 (2001) S/P B/L TKA Stable; Has not had to use NTG since stent placement HTN (hypertension) Hx of basal cell carcinoma Hx of deep venous thrombosis LLE "A LONG TIME AGO" Hx of ulcerative colitis S/p colectomy- ileostomy 1990 and 1994 Hx of vertigo Ileostomy in place Left lower lobe pneumonia 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 Aneurysm present since [place] in 2001 per cardio Macular degeneration Neurogenic bladder NO DOS SANTOS CATHETER 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 PVCs (premature ventricular contractions) Asymptomatic per patient Right tibial fracture Sciatica TIA (transient ischemic attack) TIA vs complex migraine February 2019 Type 2 diabetes mellitus Surgical History History of anesthesia reaction SLOW TO WAKE, BREATHING ISSUES, NAUSEA AND VOMITING History of appendectomy History of arthroplasty of right shoulder Right TSA= 05/24/16= Grade 1 view, MAC#4 at [facility] History of cholecystectomy History of colonoscopy History of cystoscopy History of ERCP MULTIPLE History of exploratory laparotomy X2 "COMMON DUCT RECONSTRUCTION" History of hand surgery RT/LEFT THUMBS History of lumbar laminectomy History of total bilateral knee replacement Hx of bilateral cataract extraction Family History Father Myocardial infarction Family/Other Hypertension Nephrolithiasis Sister FH: ovarian cancer Other Family history of breast cancer in mother Social History Smoking Status: Never smoker Second Hand Exposure: No; Hx Alcohol Use: No Hx Substance Use: No Preferred Language: Jamaican Communication Ability: Effective [employer] Required: No Beliefs That Will Affect Care: None marital status: Current Living Situation: Spouse and Personal Care Facility Current Living Situation Comment: Currently in [facility] fall and leg fracture current occupational status: retired current occupation: [employer] Feels Safe at Home: Yes Assistive Devices: Brace/Splint/Immobilizer, Oxygen - Continuous and Walker Allergies Allergies Allergy/AdvReac Type Severity Reaction Status Date / Time Egg Derived Allergy Intermediate RASH WITH Verified 02/09/21 14:34 LARGE QUANTITIES metformin Allergy Intermediate GI ISSUES Verified 02/09/21 14:34 pollen extracts Allergy Intermediate ITCHY Verified 02/09/21 14:34 EYES, SNEEZING, CONGESTION codeine AdvReac Intermediate N/V, Verified 02/09/21 14:34 HYPOTENSTION fentanyl AdvReac Intermediate EXTREME Verified 02/09/21 14:34 NAUSEA; BP DROPS meperidine AdvReac Intermediate N/V, Verified 02/09/21 14:34 HYPOTENSTION morphine AdvReac Intermediate N/V, Verified 02/09/21 14:34 HYPOTENSTION Flu Virus Vaccine Allergy Intermediate AVOIDS DUE Uncoded 02/09/21 14:34 TO EGG ALLERGY NARCOTICS AdvReac Intermediate N/V, Uncoded 02/09/21 14:34 HYPOTENSTION Home Meds Home Medications Medication Instructions Recorded Confirmed alendronate 70 mg tablet (Fosamax) 70 mg PO WK 09/29/18 02/09/21 allopurinol 300 mg tablet 300 mg PO QAM 09/29/18 02/09/21 finasteride 5 mg tablet (Proscar) 5 mg PO QAM 09/29/18 02/09/21 magnesium oxide 400 mg PO QAM 09/29/18 02/09/21 ursodiol 300 mg capsule 300 mg PO BIDM 09/29/18 02/09/21 folic acid 1 mg tablet 1 mg PO QAM 02/02/19 02/09/21 cranberry 500 mg capsule 500 mg PO QAM 04/02/19 02/09/21 meclizine 25 mg tablet 25 mg PO TID PRN 04/02/19 02/09/21 (Medi-Meclizine) loratadine 10 mg tablet (Claritin) 10 mg PO QAM PRN 06/24/19 02/09/21 Lactobacillus acidophilus 0 mg PO BID 02/09/21 02/09/21 (Acidophilus) atorvastatin 20 mg tablet (Lipitor) 20 mg PO HS 02/09/21 02/09/21 calcitonin (salmon) 200 1 spray INTRANASAL QAM 02/09/21 02/09/21 unit/actuation nasal spray calcium carbonate 500 mg (1,250 1 tab PO QAM 02/09/21 02/09/21 mg)-vitamin D3 200 unit tablet (Calcium 500 + D) docusate sodium 100 mg capsule 100 mg PO BID 02/09/21 02/09/21 (Colace) insulin regular human 100 unit/mL 1 sliding scale dose SUBCUT 02/09/21 02/09/21 injection solution (Humulin R USEASDIRECTD Regular U-100 Insulin) melatonin 3 mg tablet (Melatin) 3 mg PO HS 02/09/21 02/09/21 metoprolol tartrate 100 mg tablet 100 mg PO QAM 02/09/21 02/09/21 (Lopressor) misoprostol 100 mcg tablet 200 mcg PO QAM 02/09/21 02/09/21 (Cytotec) omega 7-awf-ivy-fish oil 1,000 mg 1 cap PO QID 02/09/21 02/09/21 (120 mg-180 mg) capsule (Fish Oil) pantoprazole 40 mg tablet,delayed 40 mg PO DAILYBB 02/09/21 02/09/21 release (Protonix) polyethylene glycol 3350 17 gram 17 g PO QDL PRN 02/09/21 02/09/21 oral powder packet (Miralax) tamsulosin 0.4 mg capsule (Flomax) 0.4 mg PO QAM 02/09/21 02/09/21 vitamin A-vitamin C-vit E-min 1 tab PO BID 02/09/21 02/09/21 tablet (Ocutabs) Previous Rx's Medication Instructions Recorded Saccharomyces boulardii 250 mg 250 mg PO DAILY #30 cap 02/13/21 capsule (Florastor) enoxaparin 30 mg/0.3 mL 30 mg SUBCUT DAILY #3 ml 02/13/21 subcutaneous syringe (Lovenox) metoprolol tartrate 25 mg tablet 75 mg PO QPM #90 tab 02/13/21 Results & Data (ED) Vital Signs Vital Signs - 24 hr 02/09/21 11:50 02/09/21 13:01 02/09/21 13:05 Temperature 36.9 C Temperature Source Oral Pulse Rate 87 75 Pulse Rate [Finger] 75 Pulse Rhythm Regular Regular Pulse Rhythm [Finger] Regular Pulse Strength Normal Pulse Strength [Finger] Normal Respiratory Rate 18 20 20 Respiratory Effort / Characteristics Normal for Patient Non-Labored Normal for Patient Respiratory Depth Normal Normal Respiratory Pattern Regular Regular Blood Pressure 169/84 H Blood Pressure [Right Arm] 146/87 H Blood Pressure Mean 112 Blood Pressure Mean [Right Arm] 106 Blood Pressure Position Semi-fowlers Blood Pressure Position [Right Arm] Lying Pulse Oximetry 94 96 Oxygen Delivery Method Room Air Room Air Room Air Oxygen Flow Rate 0 Sepsis Recent Fever Within 48 Hours No Sepsis New/Unexplained Change in Mental Status No Sepsis Action Taken by Nursing No Action Required Home Medications Current Medication List: was personally reviewed by me Laboratory Data Attestation: I reviewed the patient's lab results. Result diagrams: 02/12/21 05:57 02/12/21 05:57 Lab Results 02/09/21 02/09/21 02/09/21 Range/Units 12:10 12:10 12:10 WBC 5.29 (4.8-10.8) K/uL RBC 3.38 L (4.7-6.1) M/uL Hgb 10.3 L (14.0-18.0) g/dL Hct 31.7 L (42-52) % MCV 93.8 (80-100) fL MCH 30.5 (25-34) pg MCHC 32.5 (32-36) g/dL RDW Std Deviation 64.0 H (36.4-46.3) fL RDW Coeff of Chani 19.2 H (11.5-14.5) % Plt Count 74 L (130-400) K/uL Immature Gran % (Auto) 0.0 % Neut % (Auto) 80.4 % Lymph % (Auto) 11.3 % [place] % (Auto) 7.2 % Eos % (Auto) 0.9 % Baso % (Auto) 0.2 % Neut # (Auto) 4.25 (1.4-6.5) K/uL Lymph # (Auto) 0.60 L (1.2-3.4) K/uL [place] # (Auto) 0.38 (0.11-0.59) K/uL Eos # (Auto) 0.05 (0-0.5) K/uL Baso # (Auto) 0.01 (0-0.2) K/uL Immature Gran # (Auto) 0.00 (0.00-0.02) K/uL Platelet Estimate Decreased L (Normal) Giant Platelets 2+ Sodium 138 (136-145) mmol/L Potassium 3.7 (3.5-5.1) mmol/L Chloride 109 H (98-107) mmol/L Carbon Dioxide 26 (21-32) mmol/L Anion Gap 3.0 (3-11) BUN 13 (7-18) mg/dl Creatinine 0.71 (0.6-1.4) mg/dl Est Cr Clr Drug Dosing Not Reportable Est GFR ( Amer) 101.3 ml/min Est GFR (Non-Af Amer) 87.4 ml/min BUN/Creatinine Ratio 18.8 (10-20) Glucose 201 H (70-99) mg/dl Calcium 8.2 L (8.5-10.1) mg/dl Total Bilirubin 1.4 H (0.2-1) mg/dl AST 23 (15-37) U/L ALT 23 (12-78) U/L Alkaline Phosphatase 166 H (45-117) U/L Total Creatine Kinase 53 (39-308) U/L CK-MB (CK-2) 1.5 (0.5-3.6) ng/ml CK/CKMB % Calc 2.8 (0-3.0) Troponin I < 0.015 (0-0.045) ng/ml Total Protein 6.2 L (6.4-8.2) gm/dl Albumin 2.6 L (3.4-5.0) gm/dl Globulin 3.6 (2.5-4.0) gm/dl Albumin/Globulin Ratio 0.7 L (0.9-2) Lipase 114 (73-393) U/L COVID-19 Eval Order SARS-CoV-2 (PCR) (Negative) 02/09/21 02/09/21 Range/Units 13:40 13:40 WBC (4.8-10.8) K/uL RBC (4.7-6.1) M/uL Hgb (14.0-18.0) g/dL Hct (42-52) % MCV (80-100) fL MCH (25-34) pg MCHC (32-36) g/dL RDW Std Deviation (36.4-46.3) fL RDW Coeff of Chani (11.5-14.5) % Plt Count (130-400) K/uL Immature Gran % (Auto) % Neut % (Auto) % Lymph % (Auto) % [place] % (Auto) % Eos % (Auto) % Baso % (Auto) % Neut # (Auto) (1.4-6.5) K/uL Lymph # (Auto) (1.2-3.4) K/uL [place] # (Auto) (0.11-0.59) K/uL Eos # (Auto) (0-0.5) K/uL Baso # (Auto) (0-0.2) K/uL Immature Gran # (Auto) (0.00-0.02) K/uL Platelet Estimate (Normal) Giant Platelets Sodium (136-145) mmol/L Potassium (3.5-5.1) mmol/L Chloride (98-107) mmol/L Carbon Dioxide (21-32) mmol/L Anion Gap (3-11) BUN (7-18) mg/dl Creatinine (0.6-1.4) mg/dl Est Cr Clr Drug Dosing Est GFR ( Amer) ml/min Est GFR (Non-Af Amer) ml/min BUN/Creatinine Ratio (10-20) Glucose (70-99) mg/dl Calcium (8.5-10.1) mg/dl Total Bilirubin (0.2-1) mg/dl AST (15-37) U/L ALT (12-78) U/L Alkaline Phosphatase (45-117) U/L Total Creatine Kinase (39-308) U/L CK-MB (CK-2) (0.5-3.6) ng/ml CK/CKMB % Calc (0-3.0) Troponin I (0-0.045) ng/ml Total Protein (6.4-8.2) gm/dl Albumin (3.4-5.0) gm/dl Globulin (2.5-4.0) gm/dl Albumin/Globulin Ratio (0.9-2) Lipase (73-393) U/L COVID-19 Eval Order Covid19 at [facility] SARS-CoV-2 (PCR) NEGATIVE (Negative) Administered Medications Discontinued Medications Acetaminophen (Acetaminophen 325 Mg Tab) 650 mg PO Q4H PRN PRN Reason: leg pain Stop: 03/11/21 19:59 Last Admin: 02/12/21 20:21 Dose: 650 mg Documented by: [id number] Admin: 02/12/21 10:55 Dose: 650 mg Documented by: [id number] Admin: 02/11/21 22:09 Dose: 650 mg Documented by: [id number] Admin: 02/11/21 11:41 Dose: 650 mg Documented by: [id number] Admin: 02/11/21 02:42 Dose: 650 mg Documented by: [id number] Admin: 02/10/21 20:34 Dose: 650 mg Documented by: [id number] Admin: 02/09/21 20:48 Dose: 650 mg Documented by: [id number] [facility]opurinol ([facility]ol 300 Mg Tab) [facility] Stop: 03/12/21 08:59 Last Admin: 02/13/21 08:01 Dose: 300 mg Documented by: [id number] Admin: 02/12/21 07:55 Dose: 300 mg Documented by: [id number] Admin: 02/11/21 07:59 Dose: 300 mg Documented by: [id number] Admin: 02/10/21 09:40 Dose: 300 mg Documented by: [id number] Atorvastatin Calcium (Atorvastatin 20 Mg Tab) 20 mg PO [facility] Stop: 03/11/21 20:59 Last Admin: 02/12/21 20:21 Dose: 20 mg Documented by: [id number] Admin: 02/11/21 21:59 Dose: 20 mg Documented by: [id number] Admin: 02/10/21 20:34 Dose: 20 mg Documented by: [id number] Admin: 02/09/21 20:02 Dose: 20 mg Documented by: [id number] Calcitonin [place] (Calcitonin [place] Na 200 Iu/Ac 3.7 Ml Btl) 1 sprays [facility] [place] Stop: 03/12/21 08:59 Last Admin: 02/13/21 08:01 Dose: 1 sprays Documented by: [id number] Admin: 02/12/21 08:00 Dose: 1 sprays Documented by: [id number] Admin: 02/11/21 08:00 Dose: 1 sprays Documented by: [id number] Admin: 02/10/21 09:41 Dose: 1 sprays Documented by: [id number] Enoxaparin Sodium (Enoxaparin Inj 30 Mg/0.3 Ml Syr) 30 mg SQ NOW ONE Stop: 02/12/21 19:13 Last Admin: 02/12/21 20:21 Dose: 30 mg Documented by: [id number] Finasteride (Finasteride 5 Mg Tab) 5 mg PO [facility] Stop: 03/12/21 08:59 Last Admin: 02/13/21 08:01 Dose: 5 mg Documented by: [id number] Admin: 02/12/21 07:55 Dose: 5 mg Documented by: [id number] Admin: 02/11/21 08:01 Dose: 5 mg Documented by: [id number] Admin: 02/10/21 09:39 Dose: 5 mg Documented by: [id number] Fluconazole (Fluconazole 100 Mg Tab) 200 mg PO [facility] Stop: 02/21/21 13:29 Last Admin: 02/11/21 15:04 Dose: Not Given Documented by: [id number] Folic Acid (Folic Acid 1 Mg Tab) 1 mg PO [facility] Stop: 03/12/21 08:59 Last Admin: 02/13/21 08:01 Dose: 1 mg Documented by: [id number] Admin: 02/12/21 07:55 Dose: 1 mg Documented by: [id number] Admin: 02/11/21 08:00 Dose: 1 mg Documented by: [id number] Admin: 02/10/21 09:39 Dose: 1 mg Documented by: [id number] Ceftriaxone Sodium (Rocephin) 2,000 mg in 70 mls @ 140 mls/hr IV NOW STA Stop: 02/09/21 15:51 Last Infusion: 02/09/21 16:15 Dose: 0 mls/hr Documented by: [id number] Admin: 02/09/21 15:45 Dose: 140 mls/hr Documented by: [id number] Sodium Chloride (Nss 1000ml) 1,000 mls @ 75 mls/hr IV .[id number] [facility] Stop: 02/09/21 23:54 Last Infusion: 02/10/21 08:13 Dose: 0 mls/hr Documented by: [id number] Admin: 02/09/21 18:41 Dose: 75 mls/hr Documented by: [id number] Insulin Aspart (Insulin Aspart 100 Units/Ml 3 Ml Pen) 0 units SC ACHS [facility] Stop: 03/12/21 07:29 Last Admin: 02/13/21 11:49 Dose: 7 units Documented by: [id number] Cosigned by: [id number] Admin: 02/13/21 07:56 Dose: 6 units Documented by: [id number] Cosigned by: [id number] Admin: 02/12/21 21:01 Dose: 2 units Documented by: [id number] Cosigned by: [id number] Admin: 02/12/21 16:44 Dose: 3 units Documented by: [id number] Cosigned by: [id number] Admin: 02/12/21 11:44 Dose: 4 units Documented by: [id number] Cosigned by: [id number] Admin: 02/12/21 07:47 Dose: 5 units Documented by: [id number] Cosigned by: [id number] Admin: 02/11/21 21:58 Dose: 1 units Documented by: [id number] Cosigned by: [id number] Admin: 02/11/21 17:13 Dose: 3 units Documented by: [id number] Cosigned by: [id number] Admin: 02/11/21 12:13 Dose: 5 units Documented by: [id number] Cosigned by: [id number] Admin: 02/11/21 07:55 Dose: 3 units Documented by: [id number] Cosigned by: [id number] Admin: 02/10/21 20:35 Dose: 1 units Documented by: [id number] Cosigned by: [id number] Admin: 02/10/21 17:20 Dose: Not Given Documented by: [id number] Admin: 02/10/21 12:50 Dose: Not Given Documented by: [id number] Admin: 02/10/21 08:01 Dose: Not Given Documented by: [id number] Lidocaine HCl (Lidocaine 2% Jelly 5 Ml Tube) Confirm Administered Dose 5 ml .ROUTE .STK-MED ONE Stop: 02/09/21 17:15 Last Admin: 02/09/21 17:47 Dose: 5 ml Documented by: [id number] Loratadine (Loratadine 10 Mg Tab) 10 mg PO [facility] PRN PRN Reason: Congestion Stop: 03/11/21 17:14 Last Admin: 02/10/21 09:39 Dose: 10 mg Documented by: [id number] Magnesium Oxide (Magnesium Oxide 400 Mg Tab) 400 [facility] Stop: 03/12/21 08:59 Last Admin: 02/13/21 08:02 Dose: 400 mg Documented by: [id number] Admin: 02/12/21 07:58 Dose: 400 mg Documented by: [id number] Admin: 02/11/21 08:00 Dose: 400 mg Documented by: [id number] Admin: 02/10/21 09:39 Dose: 400 mg Documented by: [id number] Melatonin (Melatonin 3 Mg Tab) 3 mg PO [facility] Stop: 03/11/21 20:59 Last Admin: 02/12/21 23:30 Dose: 3 mg Documented by: [id number] Admin: 02/11/21 23:05 Dose: 3 mg Documented by: [id number] Admin: 02/10/21 21:28 Dose: 3 mg Documented by: [id number] Admin: 02/09/21 21:53 Dose: 3 mg Documented by: [id number] Metoprolol Tartrate (Metoprolol Tartrate 100 Mg Tab) 100 mg PO [facility] Stop: 03/13/21 09:14 Last Admin: 02/11/21 09:53 Dose: Not Given Documented by: [id number] Metoprolol Tartrate (Metoprolol Tartrate 100 Mg Tab) 100 mg PO DAILY@1200 [facility] Stop: 03/13/21 11:59 Last Admin: 02/13/21 11:50 Dose: 100 mg Documented by: [id number] Admin: 02/12/21 11:53 Dose: 100 mg Documented by: [id number] Admin: 02/11/21 11:30 Dose: 100 mg Documented by: [id number] Metoprolol Tartrate (Metoprolol Tartrate 25 Mg Tab) 75 mg PO QPM [facility] Stop: 03/13/21 20:59 Last Admin: 02/12/21 20:22 Dose: 75 mg Documented by: [id number] Admin: 02/11/21 22:00 Dose: 75 mg Documented by: [id number] Miscellaneous (Patient's Height And/Or Weight Needed) 1 ea N/A Q2H [facility] Stop: 03/13/21 13:44 Last Admin: 02/11/21 14:00 Dose: 1 ea Documented by: [id number] Misoprostol (Misoprostol 200 Mcg Tab) 200 mcg PO QAM [facility] Stop: 03/12/21 08:59 Last Admin: 02/13/21 08:01 Dose: 200 mcg Documented by: [id number] Admin: 02/12/21 07:58 Dose: 200 mcg Documented by: [id number] Admin: 02/11/21 08:00 Dose: 200 mcg Documented by: [id number] Admin: 02/10/21 09:39 Dose: 200 mcg Documented by: [id number] Multivitamins/Minerals (Calcium 600mg + Vit D 400 Iu Tab) 1 tab PO QAM [facility] Stop: 03/12/21 08:59 Last Admin: 02/13/21 08:01 Dose: 1 tab Documented by: [id number] Admin: 02/12/21 07:56 Dose: 1 tab Documented by: [id number] Admin: 02/11/21 07:59 Dose: 1 tab Documented by: [id number] Admin: 02/10/21 09:39 Dose: 1 tab Documented by: [id number] Multivitamins/Minerals (Cerovite Adv Formula Tab) 1 tab PO BID [facility] Stop: 03/11/21 20:59 Last Admin: 02/13/21 08:01 Dose: 1 tab Documented by: [id number] Admin: 02/12/21 20:21 Dose: 1 tab Documented by: [id number] Admin: 02/12/21 07:56 Dose: 1 tab Documented by: [id number] Admin: 02/11/21 22:01 Dose: 1 tab Documented by: [id number] Admin: 02/11/21 08:01 Dose: 1 tab Documented by: [id number] Admin: 02/10/21 20:34 Dose: 1 tab Documented by: [id number] Admin: 02/10/21 09:39 Dose: 1 tab Documented by: [id number] Admin: 02/09/21 20:02 Dose: 1 tab Documented by: [id number] Pantoprazole Sodium (Pantoprazole 40 Mg Tab) 40 mg PO DAILYBB [facility] Stop: 03/12/21 06:29 Last Admin: 02/13/21 05:46 Dose: 40 mg Documented by: [id number] Admin: 02/12/21 05:31 Dose: 40 mg Documented by: [id number] Admin: 02/11/21 05:51 Dose: 40 mg Documented by: [id number] Admin: 02/10/21 05:12 Dose: 40 mg Documented by: [id number] Polyethylene Glycol (Polyethylene (Miralax) 17 Gm Pack) 17 gm PO DAILY [facility] Stop: 03/12/21 08:59 Last Admin: 02/13/21 08:10 Dose: Not Given Documented by: [id number] Admin: 02/12/21 08:01 Dose: Not Given Documented by: [id number] Admin: 02/11/21 07:57 Dose: Not Given Documented by: [id number] Admin: 02/10/21 09:41 Dose: Not Given Documented by: [id number] Saccharomyces Boulardii (Saccharomyces Boulardii 250 Mg Cap) 250 mg PO DAILY [facility] Stop: 03/14/21 12:29 Last Admin: 02/13/21 08:01 Dose: 250 mg Documented by: [id number] Admin: 02/12/21 13:03 Dose: 250 mg Documented by: [id number] Tamsulosin HCl (Tamsulosin Hcl 0.4 Mg Cap) 0.4 mg PO QAM [facility] Stop: 03/12/21 08:59 Last Admin: 02/13/21 08:01 Dose: 0.4 mg Documented by: [id number] Admin: 02/12/21 07:56 Dose: 0.4 mg Documented by: [id number] Admin: 02/11/21 07:58 Dose: 0.4 mg Documented by: [id number] Admin: 02/10/21 09:39 Dose: 0.4 mg Documented by: [id number] Tizanidine HCl (Tizanidine Hcl 4 Mg Tablet) 2 mg PO ONE ONE Stop: 02/12/21 11:30 Last Admin: 02/12/21 12:21 Dose: 2 mg Documented by: [id number] Ursodiol (Ursodiol 300 Mg Cap) 300 mg PO BIDM [facility] Stop: 03/11/21 17:14 Last Admin: 02/13/21 08:01 Dose: 300 mg Documented by: [id number] Admin: 02/12/21 16:49 Dose: 300 mg Documented by: [id number] Admin: 02/12/21 07:56 Dose: 300 mg Documented by: [id number] Admin: 02/11/21 17:14 Dose: 300 mg Documented by: [id number] Admin: 02/11/21 07:58 Dose: 300 mg Documented by: [id number] Admin: 02/10/21 17:20 Dose: Not Given Documented by: [id number] Admin: 02/10/21 09:39 Dose: 300 mg Documented by: [id number] Admin: 02/09/21 20:02 Dose: 300 mg Documented by: [id number] Imaging Data Radiologist's Impression: Abdomen/Pelvis CT 02/09/21 11:[address] WITHOUT CONTRAST CT DOSE: 436.06 mGy.cm HISTORY: Acute hematuria hematuria TECHNIQUE: Multiaxial CT images of the abdomen and pelvis were performed without contrast. A dose lowering technique was utilized adhering to the principles of ALARA. COMPARISON STUDY: CT abdomen and pelvis 05/28/2019 lumbar spine radiographs 11/29/2020. FINDINGS: Moderate cardiomegaly with coronary artery calcifications. There are fibrofatty changes of the left ventricular apex suggest prior myocardial infarction. Trace pleural effusions with dependent bibasilar opacities suggestive of atelectasis. Mild cylindrical bibasilar bronchiectasis. No pneumatosis or pneumoperitoneum. Unchanged spinal megaly measuring up to approximately 16 cm in length. Mild to moderate generalized pancreatic atrophy. Unremarkable adrenal glands. Cholecystectomy. Intrahepatic and extrahepatic biliary ductal dilation with pneumobilia. Chronic associated biliary wall thickening with cirrhosis. No discrete hepatic mass identified. Unchanged heterogeneity of the right hepatic lobe. No urolith or obstructive uropathy. Urinary bladder wall thickening with trabeculation and numerous bladder diverticula. A Dos Santos catheter is present with moderate intraluminal air, likely secondary to rotation. Moderate hemorrhage within the dependent urinary bladder. Prostamegaly. Perivesicular stranding. Trace dependent free fluid within the pelvis with mild generalized body wall and mesenteric edema. Moderate atherosclerotic plaque of the abdominal aorta. No aneurysm or adenopathy. Hyperdense material is noted within the gastric lumen. Colectomy with left lower quadrant ileostomy. A large parastomal hernia containing mesenteric fat and small bowel loops redemonstrated which appears similar to increased in size from comparison. There is no bowel obstruction. Air-fluid levels are noted within prominent loops of small bowel within the hernia sac measuring up to 2.7 cm. A small bowel containing right lower abdominal wall hernias redemonstrated with diastases of 3.5 cm, unchanged. Degenerative changes of the spine. Chondrocalcinosis of the hips. Demineralized appearance of the bones. Chronic L2 and L4 compression deformities appear unchanged. There is progressive compression involving the T12 vertebral body which has worsened from 11/29/2020. 4 mm associated retropulsion. IMPRESSION: 1. Prostamegaly with evidence of chronic bladder outlet obstruction. Urinary bladder wall thickening and perivesicular stranding should be correlated with urinalysis to exclude cystitis. 2. A Dos Santos catheter is present within the urinary bladder along with a moderate amount of intraluminal hemorrhage. 3. No urolith or obstructive uropathy. 4. Cirrhosis with splenomegaly compatible with portal venous hypertension. 5. Prior colectomy with left lower quadrant ileostomy. Stable to increased size of the large left lower quadrant parastomal bowel containing hernia. No bowel obstruction 6. Progressive T12 compression deformity with 4 mm retropulsion, worsened from 11/29/2020. 7. Additional findings as above. ACT 112: Negative or not required by law. The above report was generated using voice recognition software. It may contain grammatical, syntax or spelling errors. Electronically signed by: Jax Gee M.D. 02/09/2021 2:09 PM Discharge Plan Visit Data Chief Complaint: Hematuria ED Provider: Heber Chavarria Discharge Problem: Hematuria, Inability to urinate, Acute prostatitis Patient Disposition: Admitted As Inpatient Discharge Instructions Interventions: ED Discharge Assessment Last Done: 02/09/21 16:36 Discharge Problem: Hematuria Qualifiers: Hematuria type: unspecified type Qualified Code(s): R31.9 - Hematuria, u nspecified
[2021-02-09 15:54] LABS: INR 1.2 (0.9-1.1); Prothrombin Time 11.9 Seconds (9.0-12.0)
--- NOTE | 2021-02-09 17:11 | CT Scan Report ---
CT SCAN OF THE CERVICAL SPINE CLINICAL HISTORY: Recent fall. Neck pain. COMPARISON STUDY: CT angiogram of the neck dated 02/04/2019. TECHNIQUE: CT scan of the cervical spine is performed from the skull base to the upper thoracic spine . Images are reviewed in the axial, sagittal, and coronal planes. IV contrast was not administered fo r this examination. A dose lowering technique was utilized adhering to the principles of ALARA. CT DOSE: 254.67 mGy.cm FINDINGS: Skeletal structures: The skeletal structures are osteopenic. There is no evidence of fracture or subl uxation involving the cervical spine. Vertebral body height and alignment are maintained. Anterior os teophytes are seen throughout. The odontoid process and lateral masses are intact. The atlantoaxial a rticulation is preserved noting productive degenerative change. The spinous processes appear intact. There is moderate multilevel cervical spondylosis. Uncovertebral and facet arthropathy contribute to foraminal narrowing at several levels. Intervertebral discs: There is advanced disc space narrowing at C5-C6, C6-C7, and C7-T1. Mild disc sp michaela narrowing is seen at the remaining cervical levels. Apparent widening of the anterior disc space at C4-C5 is unchanged from prior studies of doubtful significance. Central canal: Posterior discussed by complexes are seen at all cervical levels, and likely contribut e to multilevel acquired compromise the central canal. Soft tissues: The prevertebral and paraspinous soft tissues are within normal limits. There is athero sclerotic calcification of the carotid bulbs. Calvarium: The visualized calvarium at the skull base appears intact. Brain parenchyma: Partially visualized brain parenchyma at the skull base is within normal limits not ing age-related involutional change. Sinuses and mastoids: The visualized paranasal sinuses are clear. The mastoid air cells are well pneu matized. Lung apices: Clear as visualized. IMPRESSION: 1. There is no evidence of fracture or subluxation involving the cervical spine. 2. Osteopenia and spondylotic change as above. ACT 112: Negative or not required by law. Electronically signed by: Bernardino Hernandez M.D. 02/09/2021 5:09 PM
[2021-02-09] MEDS ORDERED: LIDOCAINE 2% JELLY 5 ML TUBE ONE (17:14)
[2021-02-09] MEDS ORDERED: ONDANSETRON INJ 2 MG/ML 2 ML VIAL IV PRN (17:15)
[2021-02-09] MEDS ORDERED: SODIUM CHLORIDE 0.9% 1000ML 1,000 ML IV SCH (17:15)
[2021-02-09] MEDS ORDERED: NITROGLYCERIN SL 0.4 MG/TAB TAB SL PRN (17:15)
[2021-02-09] MEDS ORDERED: PHENAZOPYRIDINE HCL 100 MG TAB PO PRN (17:15)
[2021-02-09] MEDS ORDERED: HYDROmorphone INJ 0.5 MG/0.5 ML SYR IV PRN (17:15)
[2021-02-09] MEDS ORDERED: OXYBUTYNIN CHLORIDE 5 MG TAB PO PRN (17:15)
[2021-02-09] MEDS ORDERED: LORATADINE 10 MG TAB PO PRN (17:15)
[2021-02-09] MEDS ORDERED: LIDOCAINE 2% JELLY 5 ML TUBE EXT ONE (17:16)
[2021-02-09] MEDS ORDERED: MECLIZINE HCL 25 MG TAB PO PRN (17:37)
[2021-02-09 18:38] LABS: Mean Corpuscular Hgb Conc 32.4 g/dL (32-36)
[2021-02-09 18:49] LABS: Hematocrit (blood only) 30.9 % (42-52); Mean Corpuscular Hemoglobin 30.4 pg (25-34); Mean Corpuscular Volume 93.9 fL (80-100); RDW Standard Deviation 65.1 fL (36.4-46.3); Red Blood Count 3.29 M/uL (4.7-6.1); White Blood Count 5.95 K/uL (4.8-10.8)
[2021-02-09 19:13] LABS: Platelet Count 76 K/uL (130-400)
[2021-02-09 19:14] LABS: Platelet Estimate Decreased (Normal)
[2021-02-09] MEDS: ursodioL 300 MG CAP PO SCH (20:02)
[2021-02-09] MEDS: CEROVITE ADV FORMULA TAB PO SCH (20:02)
[2021-02-09] MEDS: ATORVASTATIN 20 MG TAB PO SCH (20:02)
[2021-02-09] MEDS: ACETAMINOPHEN 325 MG TAB PO PRN (20:48)
[2021-02-09] MEDS: MELATONIN 3 MG TAB PO SCH (21:53)
[2021-02-10] MEDS: PANTOprazole 40 MG TAB PO SCH (05:12)
[2021-02-10 06:41] LABS: Mean Corpuscular Hgb Conc 31.9 g/dL (32-36)
[2021-02-10 06:59] LABS: Hematocrit (blood only) 28.5 % (42-52); Hemoglobin 9.1 g/dL (14.0-18.0); Mean Corpuscular Hemoglobin 30.4 pg (25-34); Mean Corpuscular Volume 95.3 fL (80-100); RDW Coefficient of Variation 19.4 % (11.5-14.5); RDW Standard Deviation 66.8 fL (36.4-46.3); Red Blood Count 2.99 M/uL (4.7-6.1); White Blood Count 4.15 K/uL (4.8-10.8)
[2021-02-10 07:00] LABS: Alanine Aminotransferase 20 U/L (12-78); Albumin Level 2.4 gm/dl (3.4-5.0); Aspartate Aminotransferase 20 U/L (15-37); BUN Creatinine Ratio 28.7 (10-20); Blood Urea Nitrogen 15 mg/dl (7-18); Calcium 7.8 mg/dl (8.5-10.1); Carbon Dioxide 25 mmol/L (21-32); Chloride 110 mmol/L (98-107); Est GFR (African American) 113.3 ml/min; Est GFR (Non-African American) 97.8 ml/min; Glucose 135 mg/dl (70-99); Potassium 3.9 mmol/L (3.5-5.1); Sodium 141 mmol/L (136-145)
[2021-02-10 07:03] LABS: Albumin Globulin Ratio 0.8 (0.9-2); Alkaline Phosphatase 152 U/L (45-117); Bilirubin,Total 1.4 mg/dl (0.2-1); Globulin 3.1 gm/dl (2.5-4.0); Total Protein 5.5 gm/dl (6.4-8.2)
--- NOTE | 2021-02-10 07:03 | Electrocardiogram Report ---
Test Reason : Blood Pressure : / mmHG Vent. Rate : 066 BPM Atrial Rate : 066 BPM P-R Int : 200 ms QRS Dur : 090 ms QT Int : 422 ms P-R-T Axes : 034 -40 053 degrees QTc Int : 442 ms Normal sinus rhythm Left axis deviation Low voltage QRS Poor R wave progression, consider anterior VA vs. lead placement vs. LVH Nonspecific T wave abnormality Abnormal ECG When compared with ECG of 02-OCT-2020 13:22, No significant change was found Confirmed by Anson Hernández ([id number]) on 02/10/2021 7:02:53 AM Referred By: [facility] Confirmed By:Anson Hernández
[2021-02-10 07:17] LABS: Platelet Count 65 K/uL (130-400); Platelet Estimate Decreased (Normal)
[2021-02-10] MEDS: INSULIN ASPART 100 UNITS/ML 3 ML PEN SC SCH ×4 (08:01→20:35)
[2021-02-10] MEDS ORDERED: METOPROLOL TARTRATE 100 MG TAB PO SCH (09:00)
--- NOTE | 2021-02-10 09:33 | Hospitalist Progress Note ---
Date of Service February 10, 2021 Assessment & Plan (1) Gross hematuria: Plan: cystoscopy today with Dr. Silva Severe trabeculation and diverticulum with low bladder volume. Likely recent and previous trauma of prostate. Severe stricture of Proximal pendulous urethra clot evacuation continue to hold Lovenox H/H is stable, no signs of significant blood loss, slightly tachycardic but BP preserved continue 3 way catheter with bladder irrigation check H/H in the morning urine culture only shows pinpoint growth, hold on further antibiotics, got Rocephin in ED (2) BPH loc w/o ur obs/LUTS: Plan: cont finasteride cont flomax lama was placed by RN, could not get 3 way cath cystoscopy today, 3 way cath placed today (3) Right tibial fracture: Plan: with right fibular fracture suffered 02/02 admitted to 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 follows with [facility]. no recent progression of cirrhosis. 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 platelets are 65k, stable (8) CAD (coronary artery disease): Plan: history of no ischemic symptoms at this time cont metoprolol cont statin (9) H/O recurrent transient ischemic attacks: Plan: noted not on secondary prevention (no asa, etc), may be due to low platelets (10) Fatigue: Plan: likely from traumatic past week, now a little more anemic (11) Compression fracture of thoracic spine, non-traumatic: Plan: T12, suffered in November CT abd/pelvis shows worsening retropulsion of compression fracture neuro exam of legs wnl however 25-OH vit D pending (12) DVT prophylaxis: Plan: SCD on left leg hold chemical means due to gross hematuria Plan: extensively updated at bedside care plan d/w Dr Silva from urology will need PT, OT in light of weakness and [facility] stay due to recent fall the c-spine was imaged as he was c/o neck pain c-spine neg for fracture Admission and Anticipated Discharge Date Admission Date: February 09, 2021 Subjective patient doing okay this morning, very tired, did not sleep last night, numerous attempts at catheter and RN checks he is breathing okay, no chest pain, no fever currently has a lama cath, draining dark urine, flushing but no clots coming out awaiting urology to see him for their recommendations, try to get 3 way catheter so he can have CBI went for cystoscopy, urethral dilation, bladder irrigation and clot evacuation, 3 way cath placed post op diagnosis: Severe trabeculation and diverticulum with low bladder volume. Likely recent and previous trauma of prostate. Severe stricture of Proximal pendulous urethra Review of Systems Review of Systems: All systems reviewed & are unremarkable except as noted in Subjective Constitutional: + fatigue; no fever, no chills, no anorexia (eating well at [facility] ) and no weight loss Respiratory: no cough and no dyspnea Cardiovascular: no chest pain Gastrointestinal: no abdominal pain, no nausea, no vomiting and no blood in stools Genitourinary: + dysuria, + difficulty urinating and + hematuria Musculoskeletal: + back pain and + neck pain Integumentary: no rash Neurologic: + generalized weakness; no numbness Psychiatric: no depression Hematologic / Lymphatic: + easy bruising Physical Exam Constitutional: well developed, well nourished and + lethargic (sleepy, did not get much sleep last night); no acute distress Neck: trachea midline, no thyromegaly Respiratory: normal respiratory effort, lungs clear to auscultation Cardiovascular: Rate/Rhythm: regular rhythm and + tachycardic Heart Sounds: normal S1 and normal S2; no murmur Vessels: no JVD Extremities: normal capillary refill; no edema Gastrointestinal (Abdomen): normal bowel sounds, soft, nontender, no hepatosplenomegaly Musculoskeletal: no cyanosis or clubbing, extremities motor strength 5/5 (right leg immobilized, recent tib/fib fracture on right) Skin: no rashes, warm and dry (some bruising on leg and arms) Neurologic: normal touch/pain/proprioception, CN's II-XI intact bilaterally, moves all extremities and awake; no focal motor deficits and not confused Psychiatric: A+Ox3, euthymic affect Results & Data Results & Data ([facility]) Vital Signs (Past 12 Hours) Vital Signs Temp Pulse Pulse Resp BP Pulse Ox 02/10/21 08:00 62 02/10/21 07:12 36.6 C 67 15 139/59 L 98 02/10/21 02:31 36.9 C 73 19 134/59 L 92 02/10/21 00:00 71 02/09/21 23:36 36.9 C 71 16 128/69 93 Laboratory Results Laboratory Results - last 24 hr 02/10/21 02/10/21 02/10/21 05:55 05:55 05:55 WBC 4.15 L RBC 2.99 L Hgb 9.1 L Hct 28.5 L MCV 95.3 MCH 30.4 MCHC 31.9 L RDW Std Deviation 66.8 H RDW Coeff of Chani 19.4 H Plt Count 65 L Platelet Estimate Decreased L Sodium 141 Potassium 3.9 Chloride 110 H Carbon Dioxide 25 Anion Gap 6.0 BUN 15 Creatinine 0.54 L Est Cr Clr Drug Dosing Not Reportable Est GFR ( Amer) 113.3 Est GFR (Non-Af Amer) 97.8 BUN/Creatinine Ratio 28.7 H Glucose 135 H POC Glucose Calcium 7.8 L Total Bilirubin 1.4 H AST 20 ALT 20 Alkaline Phosphatase 152 H Total Protein 5.5 L Albumin 2.4 L Globulin 3.1 Albumin/Globulin Ratio 0.8 L 25-OH Vitamin D Total Pending 02/10/21 02/10/21 02/10/21 07:29 17:19 20:09 WBC RBC Hgb Hct MCV MCH MCHC RDW Std Deviation RDW Coeff of Chani Plt Count Platelet Estimate Sodium Potassium Chloride Carbon Dioxide Anion Gap BUN Creatinine Est Cr Clr Drug Dosing Est GFR ( Amer) Est GFR (Non-Af Amer) BUN/Creatinine Ratio Glucose POC Glucose 139 H 134 H 129 H Calcium Total Bilirubin AST ALT Alkaline Phosphatase Total Protein Albumin Globulin Albumin/Globulin Ratio 25-OH Vitamin D Total Medications Administered Current Inpatient Medications Acetaminophen (Acetaminophen 325 Mg Tab) 650 mg PO Q4H PRN PRN Reason: leg pain Stop: 03/11/21 19:59 Last Admin: 02/10/21 20:34 Dose: 650 mg Documented by: Allopurinol (Allopurinol 300 Mg Tab) 300 mg PO QAM [facility] Stop: 03/12/21 08:59 Last Admin: 02/10/21 09:40 Dose: 300 mg Documented by: Atorvastatin Calcium (Atorvastatin 20 Mg Tab) 20 mg PO HS [facility] Stop: 03/11/21 20:59 Last Admin: 02/10/21 20:34 Dose: 20 mg Documented by: Atropine Sulfate (Atropine Sulfate 0.1 Mg/Ml 10ml Syr) 0.5 mg IV Q1M PRN PRN Reason: PACU Use-HR<40 &/or Bradycardi Stop: 02/10/21 23:23 Calcitonin Stafford (Calcitonin Stafford Na 200 Iu/Ac 3.7 Ml Btl) [facility] [place]: 03/12/21 08:59 Last Admin: 02/10/21 09:41 Dose: 1 sprays Documented by: Ephedrine Sulfate (Ephedrine Sulfate 50 Mg/Ml Amp) 5 mg IV Q5M PRN PRN Reason: PACU Use Only-SBP<90 mmHg Stop: 02/10/21 23:23 Finasteride (Finasteride 5 Mg Tab) [facility] Stop: 03/12/21 08:59 Last Admin: 02/10/21 09:39 Dose: 5 mg Documented by: Folic Acid (Folic Acid 1 Mg Tab) 1 mg PO QAM [facility] Stop: 03/12/21 08:59 Last Admin: 02/10/21 09:39 Dose: 1 mg Documented by: Hydromorphone HCl (Hydromorphone Inj 0.5 Mg/0.5 Ml Syr) 0.25 mg IV Q6H PRN PRN Reason: Pain Stop: 02/23/21 17:14 Hydromorphone HCl (Hydromorphone Inj 1 Mg/Ml Syringe) 0.25 mg IV Q5M PRN PRN Reason: PACU Use Only-Pain Stop: 02/10/21 23:23 Insulin Aspart (Insulin Aspart 100 Units/Ml 3 Ml Pen) 0 units SC [facility] Stop: 03/12/21 07:29 Last Admin: 02/10/21 20:35 Dose: 1 units Documented by: Loratadine (Loratadine 10 Mg Tab) 10 mg PO QAM PRN PRN Reason: Congestion Stop: 03/11/21 17:14 Last Admin: 02/10/21 09:39 Dose: 10 mg Documented by: Magnesium Oxide (Magnesium Oxide 400 Mg Tab) 400 mg PO QAM [facility] Stop: 03/12/21 08:59 Last Admin: 02/10/21 09:39 Dose: 400 mg Documented by: Meclizine HCl (Meclizine Hcl 25 Mg Tab) 25 mg PO TID PRN PRN Reason: Vertigo Stop: 03/11/21 17:36 Melatonin (Melatonin 3 Mg Tab) 3 mg PO HS [facility] Stop: 03/11/21 20:59 Last Admin: 02/09/21 21:53 Dose: 3 mg Documented by: Misoprostol (Misoprostol 200 Mcg Tab) 200 mcg PO QAM [facility] Stop: 03/12/21 08:59 Last Admin: 02/10/21 09:39 Dose: 200 mcg Documented by: Multivitamins/Minerals (Calcium 600mg + Vit D 400 Iu Tab) 1 tab PO QAM [facility] Stop: 03/12/21 08:59 Last Admin: 02/10/21 09:39 Dose: 1 tab Documented by: Multivitamins/Minerals (Cerovite Adv Formula Tab) 1 tab PO BID [facility] Stop: 03/11/21 20:59 Last Admin: 02/10/21 20:34 Dose: 1 tab Documented by: Nitroglycerin (Nitroglycerin Sl 0.4 Mg/Tab Tab) 0.4 mg SL UD PRN PRN Reason: Chest Pain Stop: 03/11/21 17:14 Ondansetron HCl (Ondansetron Inj 2 Mg/Ml 2 Ml Vial) 4 mg IV Q6H PRN PRN Reason: Nausea Stop: 03/11/21 17:14 Ondansetron HCl (Ondansetron Inj 2 Mg/Ml 2 Ml Vial) 4 mg IV ONCE PRN PRN Reason: PACU Use Only-Nausea/Vomiting Stop: 02/10/21 23:23 Oxybutynin Chloride (Oxybutynin Chloride 5 Mg Tab) 2.5 mg PO BID PRN PRN Reason: Bladder pain Stop: 03/11/21 17:14 Pantoprazole Sodium ([facility]ant[facility] 40 Mg Tab) [facility] Stop: 03/12/21 06:29 Last Admin: 02/10/21 05:12 Dose: 40 mg Documented by: Phenazopyridine HCl (Phenazopyridine Hcl 100 Mg Tab) 100 mg PO TID PRN PRN Reason: bladder pain Stop: 03/11/21 17:14 Polyethylene Glycol (Polyethylene (Miralax) 17 Gm Pack) 17 gm PO DAILY [facility] Stop: 03/12/21 08:59 Last Admin: 02/10/21 09:41 Dose: Not Given Documented by: Tamsulosin HCl (Tamsulosin Hcl 0.4 Mg Cap) 0.4 mg PO QAM [facility] Stop: 03/12/21 08:59 Last Admin: 02/10/21 09:39 Dose: 0.4 mg Documented by: Ursodiol (Ursodiol 300 Mg Cap) 300 mg PO BIDM [facility] Stop: 03/11/21 17:14 Last Admin: 02/10/21 17:20 Dose: Not Given Documented by: PG Care Time/CCT Total # of Minutes Spent Total Time Spent with Patient: Total time spent is greater than 50% in coordination of care (as documented) at patient's floor/unit and/or counseling patient: Coding Level of Care Code 05288 Subseq Hosp Care Lvl 3 Diagnoses Gross hematuria R31.0 BPH loc w/o ur obs/LUTS N40.0 Right tibial fracture S82.201A Right fibular fracture S82.401A Type 2 diabetes mellitus E11.65 Diabetes mellitus complication status: with hyperglycemia Diabetes mellitus manager terminal insulin use: without manager terminal use Primary sclerosing cholangitis K83.0 Thrombocytopenia D69.6 CAD (coronary artery disease) I25.10 H/O recurrent transient ischemic attacks Z86.73 Fatigue R53.83 Compression fracture of thoracic spine, non-traumatic M48.54XA DVT prophylaxis Z29.9 (1) Type 2 diabetes mellitus Diabetes mellitus complication status: with hyperglycemia Diabetes mellitus care home insulin use: without manager terminal use Qualified Code(s): E11.65 - Type 2 diabetes mellitus with hyperglycemia
[2021-02-10] MEDS: TAMSULOSIN HCL 0.4 MG CAP PO SCH (09:39)
[2021-02-10] MEDS: FINASTERIDE 5 MG TAB PO SCH (09:39)
[2021-02-10] MEDS: MAGNESIUM OXIDE 400 MG TAB PO SCH (09:39)
[2021-02-10] MEDS: FOLIC ACID 1 MG TAB PO SCH (09:39)
[2021-02-10] MEDS: miSOPROStoL 200 MCG TAB PO SCH (09:39)
[2021-02-10] MEDS: CEROVITE ADV FORMULA TAB PO SCH ×2 (09:39→20:34)
[2021-02-10] MEDS: ursodioL 300 MG CAP PO SCH ×2 (09:39→17:20)
[2021-02-10] MEDS: CALCIUM 600MG + VIT D 400 IU TAB PO SCH (09:39)
[2021-02-10] MEDS: allopurinoL 300 MG TAB PO SCH (09:40)
[2021-02-10] MEDS: POLYETHYLENE (MIRALAX) 17 GM PACK PO SCH (09:41)
[2021-02-10] MEDS: CALCITONIN SALMON NA 200 IU/AC 3.7 ML BTL SCH (09:41)
--- NOTE | 2021-02-10 13:34 | Urology Consultation ---
Date of Consultation February 10, 2021 Assessment & Plan (1) Gross hematuria: Well known patient of Dr. Allison with history of Retention, Clot/GH, Neurogenic bladder. CT reviewed and interrpreted. No obvious masses. Trouble with catheter. Multiple attempts by nursing to place catheter. Risks and benefits discussed at length for procedure. These include bleeding, infection, injury to surrounding tissues or organs, and risks associated with anesthesia. Patient states understanding and agrees to proceed. Will sign consent and proceed. Plan for possible cystoscopy with clot evacuation. (2) Pyuria: (3) Antiplatelet or antithrombotic long-term use: (4) Bladder stone: (5) Recurrent UTI (urinary tract infection): History of Present Illness Attending Physician: Jelani Ny DO History of Present Illness Consult for urinary issues with hematuria. Patient has mild to moderate discomfort in pelvis and groin going to back and side in waves. Is dealing with acute illness. Has been deconditioned from this. Has decreased mobility significantly with acute issues. Denies significant previous episodes of hematuria. Is still able to void. Has had some minor urinary issues in the past. No severe nausea or vomiting. Currently no fevers. No significant family history of malignancy. Allergies Allergy/AdvReac Type Severity Reaction Status Date / Time Egg Derived Allergy Intermediate RASH WITH Verified 02/09/21 14:34 LARGE QUANTITIES metformin Allergy Intermediate GI ISSUES Verified 02/09/21 14:34 pollen extracts Allergy Intermediate ITCHY Verified 02/09/21 14:34 EYES, SNEEZING, CONGESTION codeine AdvReac Intermediate N/V, Verified 02/09/21 14:34 HYPOTENSTION fentanyl AdvReac Intermediate EXTREME Verified 02/09/21 14:34 NAUSEA; BP DROPS meperidine AdvReac Intermediate N/V, Verified 02/09/21 14:34 HYPOTENSTION morphine AdvReac Intermediate N/V, Verified 02/09/21 14:34 HYPOTENSTION Flu Virus Vaccine Allergy Intermediate AVOIDS DUE Uncoded 02/09/21 14:34 TO EGG ALLERGY NARCOTICS AdvReac Intermediate N/V, Uncoded 02/09/21 14:34 HYPOTENSTION Home Medications Medication Instructions Recorded Confirmed Type alendronate 70 mg tablet (Fosamax) 70 mg PO WK 09/29/18 02/09/21 History allopurinol 300 mg tablet 300 mg PO QAM 09/29/18 02/09/21 History finasteride 5 mg tablet (Proscar) 5 mg PO QAM 09/29/18 02/09/21 History magnesium oxide 400 mg PO QAM 09/29/18 02/09/21 History ursodiol 300 mg capsule 300 mg PO BIDM 09/29/18 02/09/21 History folic acid 1 mg tablet 1 mg PO QAM 02/02/19 02/09/21 History cranberry 500 mg capsule 500 mg PO QAM 04/02/19 02/09/21 History meclizine 25 mg tablet 25 mg PO TID PRN 04/02/19 02/09/21 History (Medi-Meclizine) loratadine 10 mg tablet (Claritin) 10 mg PO QAM PRN 06/24/19 02/09/21 History Lactobacillus acidophilus 0 mg PO BID 02/09/21 02/09/21 History (Acidophilus) atorvastatin 20 mg tablet (Lipitor) 20 mg PO HS 02/09/21 02/09/21 History calcitonin (salmon) 200 1 spray INTRANASAL QAM 02/09/21 02/09/21 History unit/actuation nasal spray calcium carbonate 500 mg (1,250 1 tab PO QAM 02/09/21 02/09/21 History mg)-vitamin D3 200 unit tablet (Calcium 500 + D) docusate sodium 100 mg capsule 100 mg PO BID 02/09/21 02/09/21 History (Colace) insulin regular human 100 unit/mL 1 sliding scale dose SUBCUT 02/09/21 02/09/21 History injection solution (Humulin R USEASDIRECTD Regular U-100 Insulin) melatonin 3 mg tablet (Melatin) 3 mg PO HS 02/09/21 02/09/21 History metoprolol tartrate 100 mg tablet 100 mg PO QAM 02/09/21 02/09/21 History (Lopressor) misoprostol 100 mcg tablet 200 mcg PO QAM 02/09/21 02/09/21 History (Cytotec) omega 2-hog-vjh-fish oil 1,000 mg 1 cap PO QID 02/09/21 02/09/21 History (120 mg-180 mg) capsule (Fish Oil) pantoprazole 40 mg tablet,delayed 40 mg PO DAILYBB 02/09/21 02/09/21 History release (Protonix) polyethylene glycol 3350 17 gram 17 g PO QDL PRN 02/09/21 02/09/21 History oral powder packet (Miralax) tamsulosin 0.4 mg capsule (Flomax) 0.4 mg PO QAM 02/09/21 02/09/21 History vitamin A-vitamin C-vit E-min 1 tab PO BID 02/09/21 02/09/21 History tablet (Ocutabs) Patient History Medical History Abscess of right shoulder (~09/2020) Benign prostatic hyperplasia with urinary obstruction CAD (coronary artery disease) STENT X 1 (2001) AT [facility] Enlarged prostate High cholesterol History of IBS History of kidney stones History of myocardial infarction STENT X 1 (2001) S/P B/L TKA Stable; Has not had to use NTG since stent placement HTN (hypertension) Hx of basal cell carcinoma Hx of deep venous thrombosis LLE "A LONG TIME AGO" Hx of ulcerative colitis S/p colectomy- ileostomy 1990 and 1994 Hx of vertigo Ileostomy in place Left lower lobe pneumonia 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 Aneurysm present since [place] in 2001 per cardio Macular degeneration Neurogenic bladder NO DOS SANTOS CATHETER 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 PVCs (premature ventricular contractions) Asymptomatic per patient Right tibial fracture Sciatica TIA (transient ischemic attack) TIA vs complex migraine February 2019 Type 2 diabetes mellitus Surgical History History of anesthesia reaction SLOW TO WAKE, BREATHING ISSUES, NAUSEA AND VOMITING History of appendectomy History of arthroplasty of right shoulder Right TSA= 05/24/16= Grade 1 view, MAC#4 at [facility] History of cholecystectomy History of colonoscopy History of cystoscopy History of ERCP MULTIPLE History of exploratory laparotomy X2 "COMMON DUCT RECONSTRUCTION" History of hand surgery RT/LEFT THUMBS History of lumbar laminectomy History of total bilateral knee replacement Hx of bilateral cataract extraction Family History Father Myocardial infarction Family/Other Hypertension Nephrolithiasis Sister FH: ovarian cancer Other Family history of breast cancer in mother Social History Smoking Status: Never smoker Second Hand Exposure: No; Do You Dip or Chew Tobacco: No; Tobacco Cessation Education Requested by Patient: No Hx Alcohol Use: No Hx Substance Use: No Preferred Language: Jamaican Communication Ability: Effective Paralegal Supervisor Required: No Beliefs That Will Affect Care: None marital status: Current Living Situation: Spouse and Personal Care Facility Current Living Situation Comment: Currently in [facility] fall and leg fracture current occupational status: retired current occupation: [employer] Other Information That Helps Us Care for You: No Feels Safe at Home: Yes Safety Concerns: Feels Safe At This Time Assistive Devices: Brace/Splint/Immobilizer Review of Systems Review of Systems: All systems reviewed & are unremarkable except as noted in HPI & below Physical Exam Physical Exam: General: Alert and oriented x 3 in no acute distress. Patient is well nourished and well kept. HEENT: Normocephalic Atraumatic. Inspection normal. Cranial Nerves 2-12 Grossly intact. Nares are clear. Neck is supple. Normal inspection of face. Normal inspection of neck. Neurologic: No deficits on inspection. Baseline for motor function and sensory. Psychologic: Normal affect. Respiratory: Nonlabored. No use of accessory muscles. No tachypnea or dyspnea. Cardiovascular: No tachycardia Skin: [place] and Dry. No rashes or visible lesions. Extremities: Moving without issues. No motor deficits on inspection Lymphatics: No edema Abdomen: Soft Non-distended. No acites. No rebound or guarding. Results & Data ([facility]) Vital Signs (Past 12 Hours) Vital Signs Temp Pulse Pulse Resp BP BP Pulse Ox 02/10/21 11:42 36.7 C 78 22 150/89 H 91 02/10/21 08:00 62 02/10/21 07:12 36.6 C 67 15 139/59 L 98 02/10/21 02:31 36.9 C 73 19 134/59 L 92 PG Care Time/CCT Total # of Minutes Spent Total Time Spent with Patient: Total time spent is greater than 50% in coordination of care (as documented) at patient's floor/unit and/or counseling patient: Coding Level of Care Code 96262 Inpt Consult Level 5 Diagnoses Gross hematuria R31.0 Pyuria R82.81 Antiplatelet or antithrombotic long-term use Z79.02 Bladder stone N21.0 Recurrent UTI (urinary tract infection) N39.0
[2021-02-10] MEDS ORDERED: LIDOCAINE 2% 2 ML VIAL/AMP(20MG/ML) INFIL ONE (15:02)
[2021-02-10] MEDS ORDERED: PROPOFOL IV EMULSION 10 MG/ML 20 ML VIAL IV ONE ×2 (15:02→15:44)
[2021-02-10] MEDS ORDERED: ACETAMINOPHEN 1000 MG/100 ML IV IV ONE (15:12)
--- NOTE | 2021-02-10 15:22 | Anesthesiology Consultation ---
Date of Service February 10, 2021 Assessment & Plan Chart Review Chart Review: Acceptable Risk for Surgery Consults Requested none History Surgery Operation Date: 02/10/21 14:00 Proposed Procedures p Cystoscopy - Adriano Silva, Height/Weight Weight: 78.7 kg Allergies Allergy/AdvReac Type Severity Reaction Status Date / Time Egg Derived Allergy Intermediate RASH WITH Verified 02/09/21 14:34 LARGE QUANTITIES metformin Allergy Intermediate GI ISSUES Verified 02/09/21 14:34 pollen extracts Allergy Intermediate ITCHY Verified 02/09/21 14:34 EYES, SNEEZING, CONGESTION codeine AdvReac Intermediate N/V, Verified 02/09/21 14:34 HYPOTENSTION fentanyl AdvReac Intermediate EXTREME Verified 02/09/21 14:34 NAUSEA; BP DROPS meperidine AdvReac Intermediate N/V, Verified 02/09/21 14:34 HYPOTENSTION morphine AdvReac Intermediate N/V, Verified 02/09/21 14:34 HYPOTENSTION Flu Virus Vaccine Allergy Intermediate AVOIDS DUE Uncoded 02/09/21 14:34 TO EGG ALLERGY NARCOTICS AdvReac Intermediate N/V, Uncoded 02/09/21 14:34 HYPOTENSTION Medications Home Medications Medication Instructions Recorded Confirmed Last Taken alendronate 70 mg tablet (Fosamax) 70 mg PO WK 09/29/18 02/09/21 06/30/19 allopurinol 300 mg tablet 300 mg PO QAM 09/29/18 02/09/21 07/04/19 08:30 finasteride 5 mg tablet (Proscar) 5 mg PO QAM 09/29/18 02/09/21 07/04/19 08:30 magnesium oxide 400 mg PO QAM 09/29/18 02/09/21 07/04/19 08:30 ursodiol 300 mg capsule 300 mg PO BIDM 09/29/18 02/09/21 06/29/19 folic acid 1 mg tablet 1 mg PO QAM 02/02/19 02/09/21 07/04/19 13:00 cranberry 500 mg capsule 500 mg PO QAM 04/02/19 02/09/21 07/04/19 08:30 meclizine 25 mg tablet 25 mg PO TID PRN 04/02/19 02/09/21 Unknown (Medi-Meclizine) loratadine 10 mg tablet (Claritin) 10 mg PO QAM PRN 06/24/19 02/09/21 07/04/19 08:30 Lactobacillus acidophilus 0 mg PO BID 02/09/21 02/09/21 Unknown (Acidophilus) atorvastatin 20 mg tablet (Lipitor) 20 mg PO HS 02/09/21 02/09/21 Unknown calcitonin (salmon) 200 1 spray INTRANASAL QAM 02/09/21 02/09/21 Unknown unit/actuation nasal spray calcium carbonate 500 mg (1,250 1 tab PO QAM 02/09/21 02/09/21 Unknown mg)-vitamin D3 200 unit tablet (Calcium 500 + D) docusate sodium 100 mg capsule 100 mg PO BID 02/09/21 02/09/21 Unknown (Colace) insulin regular human 100 unit/mL 1 sliding scale dose SUBCUT 02/09/21 02/09/21 Unknown injection solution (Humulin R USEASDIRECTD Regular U-100 Insulin) melatonin 3 mg tablet (Melatin) 3 mg PO HS 02/09/21 02/09/21 Unknown metoprolol tartrate 100 mg tablet 100 mg PO QAM 02/09/21 02/09/21 Unknown (Lopressor) misoprostol 100 mcg tablet 200 mcg PO QAM 02/09/21 02/09/21 Unknown (Cytotec) omega 9-unb-ahy-fish oil 1,000 mg 1 cap PO QID 02/09/21 02/09/21 Unknown (120 mg-180 mg) capsule (Fish Oil) pantoprazole 40 mg tablet,delayed 40 mg PO DAILYBB 02/09/21 02/09/21 Unknown release (Protonix) polyethylene glycol 3350 17 gram 17 g PO QDL PRN 02/09/21 02/09/21 Unknown oral powder packet (Miralax) tamsulosin 0.4 mg capsule (Flomax) 0.4 mg PO QAM 02/09/21 02/09/21 Unknown vitamin A-vitamin C-vit E-min 1 tab PO BID 02/09/21 02/09/21 Unknown tablet (Ocutabs) Active Medications Generic Name Dose Route Start Last Admin Trade Name Freq PRN Reason Stop Dose Admin Acetaminophen 650 mg 02/09/21 20:00 02/09/21 20:48 Acetaminophen 325 Mg Tab PO 03/11/21 19:59 650 mg Q4H PRN Administration leg pain Allopurinol 300 mg 02/10/21 09:00 02/10/21 09:40 Allopurinol 300 Mg Tab PO 03/12/21 08:59 300 mg QAM SHAGUFTA Administration Atorvastatin Calcium 20 mg 02/09/21 21:00 02/09/21 20:02 Atorvastatin 20 Mg Tab PO 03/11/21 20:59 20 mg HS SHAGUFTA Administration Calcitonin [place] 1 sprays 02/10/21 09:00 02/10/21 09:41 Calcitonin [place] Na 200 Iu/Ac 3.7 Ml Btl NA 03/12/21 08:59 1 sprays QAM SHAGUFTA Administration Finasteride 5 mg 02/10/21 09:00 02/10/21 09:39 Finasteride 5 Mg Tab PO 03/12/21 08:59 5 mg QAM SHAGUFTA Administration Folic Acid 1 mg 02/10/21 09:00 02/10/21 09:39 Folic Acid 1 Mg Tab PO 03/12/21 08:59 1 mg QAM SHAGUFTA Administration Insulin Aspart 0 units 02/10/21 07:30 02/10/21 12:50 Insulin Aspart 100 Units/Ml 3 Ml Pen SC 03/12/21 07:29 Not Given ACHS SHAGUFTA Loratadine 10 mg 02/09/21 17:15 02/10/21 09:39 Loratadine 10 Mg Tab PO 03/11/21 17:14 10 mg QAM PRN Administration Congestion Magnesium Oxide 400 mg 02/10/21 09:00 02/10/21 09:39 Magnesium Oxide 400 Mg Tab PO 03/12/21 08:59 400 mg QAM SHAGUFTA Administration Melatonin 3 mg 02/09/21 21:00 02/09/21 21:53 Melatonin 3 Mg Tab PO 03/11/21 20:59 3 mg HS SHAGUFTA Administration Misoprostol 200 mcg 02/10/21 09:00 02/10/21 09:39 Misoprostol 200 Mcg Tab PO 03/12/21 08:59 200 mcg QAM SHAGUFTA Administration Multivitamins/Minerals 1 tab 02/10/21 09:00 02/10/21 09:39 Calcium 600mg + Vit D 400 Iu Tab PO 03/12/21 08:59 1 tab QAM SHAGUFTA Administration Multivitamins/Minerals 1 tab 02/09/21 21:00 02/10/21 09:39 Cerovite Adv Formula Tab PO 03/11/21 20:59 1 tab BID SHAGUFTA Administration Pantoprazole Sodium 40 mg 02/10/21 06:30 02/10/21 05:12 Pantoprazole 40 Mg Tab PO 03/12/21 06:29 40 mg DAILYBB SHAGUFTA Administration Polyethylene Glycol 17 gm 02/10/21 09:00 02/10/21 09:41 Polyethylene (Miralax) 17 Gm Pack PO 03/12/21 08:59 Not Given DAILY SHAGUFTA Tamsulosin HCl 0.4 mg 02/10/21 09:00 02/10/21 09:39 Tamsulosin Hcl 0.4 Mg Cap PO 03/12/21 08:59 0.4 mg QAM SHAGUFTA Administration Ursodiol 300 mg 02/09/21 17:15 02/10/21 09:39 Ursodiol 300 Mg Cap PO 03/11/21 17:14 300 mg BIDM SHAGUFTA Administration NPO Date Last Intake of Fluids: 02/10/21 Time Last Intake of Fluids: 08:00 Last Intake of Fluids Comment: sips with meds Date Last Intake of Solids: 02/09/21 Time Last Intake of Solids: 17:00 Past Medical History Medical History Abscess of right shoulder (~09/2020) Benign prostatic hyperplasia with urinary obstruction CAD (coronary artery disease) STENT X 1 (2001) AT [facility] Enlarged prostate High cholesterol History of IBS History of kidney stones History of myocardial infarction STENT X 1 (2001) S/P B/L TKA Stable; Has not had to use NTG since stent placement HTN (hypertension) Hx of basal cell carcinoma Hx of deep venous thrombosis LLE "A LONG TIME AGO" Hx of ulcerative colitis S/p colectomy- ileostomy 1990 and 1994 Hx of vertigo Ileostomy in place Left lower lobe pneumonia 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 Aneurysm present since [place] in 2001 per cardio Macular degeneration Neurogenic bladder NO DOS SANTOS CATHETER 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 PVCs (premature ventricular contractions) Asymptomatic per patient Right tibial fracture Sciatica TIA (transient ischemic attack) TIA vs complex migraine February 2019 Type 2 diabetes mellitus Past Family History Family History Father Myocardial infarction Family/Other Hypertension Nephrolithiasis Sister FH: ovarian cancer Other Family history of breast cancer in mother Past Surgical History Surgical History History of anesthesia reaction SLOW TO WAKE, BREATHING ISSUES, NAUSEA AND VOMITING History of appendectomy History of arthroplasty of right shoulder Right TSA= 05/24/16= Grade 1 view, MAC#4 at [facility] History of cholecystectomy History of colonoscopy History of cystoscopy History of ERCP MULTIPLE History of exploratory laparotomy X2 "COMMON DUCT RECONSTRUCTION" History of hand surgery RT/LEFT THUMBS History of lumbar laminectomy History of total bilateral knee replacement Hx of bilateral cataract extraction Social History Smoking Status: Never smoker Do You Dip or Chew Tobacco: No Hx Alcohol Use: No Alcohol type: wine alcohol intake frequency: holidays/special occasions only Hx Substance Use: No substance use type: does not use Physical Exam Vital Signs Last Vital Signs Temp 36.7 C 02/10/21 11:42 Pulse 78 02/10/21 11:42 Resp 22 02/10/21 11:42 BP 150/89 H 02/10/21 11:42 Pulse Ox 91 02/10/21 11:42 Testing Laboratory Results 02/10/21 05:55 02/10/21 05:55 PT 11.9 Seconds (9.0-12.0) 02/09/21 15:37 INR 1.2 (0.9-1.1) H 02/09/21 15:37 Urine Color Red 02/09/21 Unknown Urine Appearance Turbid (Clear) A 02/09/21 Unknown Urine pH (4.5-7.5) 02/09/21 Unknown Ur Specific [place] 1.025 (1.000-1.030) 02/09/21 Unknown Urine Protein (Negative) 02/09/21 Unknown Urine Glucose (UA) (Negative) 02/09/21 Unknown Urine Ketones (Negative) 02/09/21 Unknown Urine Nitrite (Negative) 02/09/21 Unknown Ur Leukocyte Esterase (Negative) 02/09/21 Unknown Urine RBC >30 /hpf (0-4) H 02/09/21 Unknown Urine WBC 10-30 /hpf (0-5) H 02/09/21 Unknown Ur Epithelial Cells 0-5 /lpf (0-5) 02/09/21 Unknown 02/09/21 Unknown Urine Culture - Preliminary Urine,Straight Cath Pin-point growth present, reincubating. 02/10/21 07:29 POC Glucose 139 H
[2021-02-10] MEDS ORDERED: ATROPINE SULFATE 0.1 MG/ML 10ML SYR IV PRN (15:23)
[2021-02-10] MEDS ORDERED: ePHEDrine sulfate 50 MG/ML AMP IV PRN (15:23)
[2021-02-10] MEDS ORDERED: ONDANSETRON INJ 2 MG/ML 2 ML VIAL IV PRN (15:23)
[2021-02-10] MEDS ORDERED: HYDROmorphone INJ 1 MG/ML SYRINGE IV PRN (15:23)
--- NOTE | 2021-02-10 15:54 | Operative Report ---
PG Post Operative Report Pre & Post Diagnosis Gross Hematuria, Retention, Difficult Catheter Same Operation Date: 02/10/21 14:00 <No data on this case meets the specified criteria> I identified the patient and participated in the time-out.: Yes Procedure Cystoscopy with urethral dilation, clot evacuation, and difficult catheter placement. Operation Date: 02/10/21 14:00 <No data on this case meets the specified criteria> Surgeon Adriano Silva, II, DO 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 Communication None Estimated Blood Loss 1 Findings Consistent with Post-Op Diagnosis Severe trabeculation and diveriticulum with low bladder volume. Likely recent and previous trauma of prostate. Severe stricture of Proximal pendulous urethra Specimens None Drains [address] to CBI Anesthesia Type MAC Complications none Disposition Disposition: Recovery Room Indications Patient with obstruction and gross hematuria. Risks and benefits discussed at length. Description of Procedure Patient was consented and brought back to the operating room. Patient was placed under anesthesia in the supine position and moved to the dorsal lithotomy position. Patient was prepped and draped in the regular sterile fashion. A time out was completed. A 30degree Cystoscope was placed into the urethra. The proximal pendulous urethra had a severe stricture with an approx length of 1 cm. The Prostate had multiple areas of irritation and trauma. An area on the anterior portion was calcified likely from previous trauma and scarring. The scope was advanced to the bladder and the entire bladder was examined. The UO's were identified. Severe trabeculation was noted. A large amount of clot was irrigated and removed. The bladder was then fully inspected and no masses, lesions, or other areas of concern. Multiple small irritated areas throughout without an area of severe bleeding. The bladder was then emptied. A wire was placed. The bladder was partially filled. The scope was removed. A [address] catheter was placed over the wire. Good irrigation was achieved. The continous bladder irrigation was started. Urine was light pink. The patient was cleaned, aroused from anesthesia, and transferred to the pacu in stable condition having tolerated the procedure well with no complications. I was present and participated in all aspects of the procedure. The patient will be monitored in the PACU until transferred. Plan to maintain catheter for 2-3 weeks and titrate CBI over next few days. Will need scope in office. I attest to the content of the Intraoperative Record and any orders documented therein. Any exceptions are noted below.
--- NOTE | 2021-02-10 16:19 | Anesthesiology Progress Note ---
Date of Service February 10, 2021 Anesthesia Post Procedure Vital Signs Vital Signs: Temp Pulse Pulse Pulse Resp BP BP 02/10/21 16:15 36.9 C 93 H 20 155/84 H 02/10/21 16:05 100 H 12 132/84 02/10/21 15:56 37.1 C 104 H 12 124/65 02/10/21 11:42 36.7 C 78 22 02/10/21 08:00 62 02/10/21 07:12 36.6 C 67 15 139/59 L 02/10/21 02:31 36.9 C 73 19 134/59 L 02/10/21 00:00 71 02/09/21 23:36 36.9 C 71 16 128/69 02/09/21 19:10 37.1 C 73 17 126/63 02/09/21 18:00 69 02/09/21 17:16 36.2 C L 71 18 145/82 H 02/09/21 17:15 36.2 C L 02/09/21 16:36 65 18 149/74 H BP Pulse Ox Pulse Ox 02/10/21 16:15 96 02/10/21 16:05 96 02/10/21 15:56 96 02/10/21 11:42 150/89 H 91 02/10/21 08:00 02/10/21 07:12 98 02/10/21 02:31 92 02/10/21 00:00 02/09/21 23:36 93 02/09/21 19:10 91 02/09/21 18:00 02/09/21 17:16 93 02/09/21 17:15 99 02/09/21 16:36 97 Pain Intensity Penis: Pain Intensity: 3 Transfer of Care Handoff Completed per policy Notes Mental Status: alert / awake / arousable and participated in evaluation Patient Amnestic to Procedure: Yes Nausea / Vomiting: adequately controlled Pain: adequately controlled Airway Patency, RR, SpO2: stable & adequate BP & HR: stable & adequate Hydration State: stable & adequate Anesthetic Complications: no major complications apparent
[2021-02-10] MEDS: ACETAMINOPHEN 325 MG TAB PO PRN (20:34)
[2021-02-10] MEDS: ATORVASTATIN 20 MG TAB PO SCH (20:34)
[2021-02-10] MEDS: MELATONIN 3 MG TAB PO SCH (21:28)
[2021-02-11] MEDS: ACETAMINOPHEN 325 MG TAB PO PRN ×3 (02:42→22:09)
[2021-02-11] MEDS: PANTOprazole 40 MG TAB PO SCH (05:51)
[2021-02-11 05:57] LABS: Mean Corpuscular Hgb Conc 32.5 g/dL (32-36)
[2021-02-11 06:08] LABS: Hematocrit (blood only) 27.1 % (42-52); Hemoglobin 8.8 g/dL (14.0-18.0); Mean Corpuscular Volume 95.4 fL (80-100); RDW Standard Deviation 66.1 fL (36.4-46.3); Red Blood Count 2.84 M/uL (4.7-6.1); White Blood Count 4.42 K/uL (4.8-10.8)
[2021-02-11 06:26] LABS: BUN Creatinine Ratio 31.5 (10-20); Blood Urea Nitrogen 14 mg/dl (7-18); Calcium 7.8 mg/dl (8.5-10.1); Carbon Dioxide 25 mmol/L (21-32); Chloride 110 mmol/L (98-107); Est GFR (Non-African American) 104.4 ml/min; Glucose 114 mg/dl (70-99); Potassium 3.7 mmol/L (3.5-5.1); Sodium 140 mmol/L (136-145)
[2021-02-11 06:33] LABS: Platelet Count 52 K/uL (130-400); Platelet Estimate Decreased (Normal)
[2021-02-11] MEDS: INSULIN ASPART 100 UNITS/ML 3 ML PEN SC SCH ×4 (07:55→21:58)
[2021-02-11] MEDS: POLYETHYLENE (MIRALAX) 17 GM PACK PO SCH (07:57)
[2021-02-11] MEDS: TAMSULOSIN HCL 0.4 MG CAP PO SCH (07:58)
[2021-02-11] MEDS: ursodioL 300 MG CAP PO SCH ×2 (07:58→17:14)
[2021-02-11] MEDS: allopurinoL 300 MG TAB PO SCH (07:59)
[2021-02-11] MEDS: CALCIUM 600MG + VIT D 400 IU TAB PO SCH (07:59)
[2021-02-11] MEDS: FOLIC ACID 1 MG TAB PO SCH (08:00)
[2021-02-11] MEDS: MAGNESIUM OXIDE 400 MG TAB PO SCH (08:00)
[2021-02-11] MEDS: miSOPROStoL 200 MCG TAB PO SCH (08:00)
[2021-02-11] MEDS: CALCITONIN SALMON NA 200 IU/AC 3.7 ML BTL SCH (08:00)
[2021-02-11] MEDS: CEROVITE ADV FORMULA TAB PO SCH ×2 (08:01→22:01)
[2021-02-11] MEDS: FINASTERIDE 5 MG TAB PO SCH (08:01)
--- NOTE | 2021-02-11 09:05 | Hospitalist Progress Note ---
Date of Service February 11, 2021 Assessment & Plan (1) Gross hematuria: Plan: cystoscopy 02/[address] Silva Severe trabeculation and diverticulum with low bladder volume. Likely recent and previous trauma of prostate. Severe stricture of Proximal pendulous urethra clot evacuation continue to hold Lovenox today, might resume tomorrow H/H is 8.8, no signs of significant blood loss, slightly tachycardic but BP preserved continue 3 way catheter with bladder irrigation until stopped by urology repeat H/H in the morning urine culture only shows pinpoint growth, hold on further antibiotics, got Rocephin in ED (2) BPH loc w/o ur obs/LUTS: Plan: cont finasteride cont flomax cystoscopy 02/10, 3 way cath placed 02/10 and CBI (3) Right tibial fracture: Plan: with right fibular fracture suffered 02/02 admitted to [facility] in [place] 02/02-02/03 seen by ortho there - nonoperative Rx advised immobilizer with NWB to RLE for at least [address] Myrick, [facility], 02/08 - no change in current care plan the tib-fib fracture is BELOW the right TKR hardware pain control prn consult PT/OT, plan to return to [facility] (4) Right fibular fracture: Plan: see above in #3 check 25-OH vit D level - PENDING pain control prn (5) Type 2 diabetes mellitus: Plan: a1c 7.1% in September bsgs ac/hs DM diet novolog sliding scale monitor for hypoglycemia, no episodes today (6) Hypoxia: Plan: likely atelectasis, CXR without edema or infiltrate encouraged him to use incentive spirometer (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 follows with [facility]. no recent progression of cirrhosis. 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 platelets are stable (9) CAD (coronary artery disease): Plan: history of no ischemic symptoms at this time cont metoprolol (discussed dosing, he takes 100mg around lunch and 75mg qPM) cont statin (10) H/O recurrent transient ischemic attacks: Plan: noted not on secondary prevention (no asa, etc), may be due to low platelets (11) Fatigue: Plan: likely from traumatic past week, now a little more anemic (12) Compression fracture of thoracic spine, non-traumatic: Plan: T12, suffered in November CT abd/pelvis shows worsening retropulsion of compression fracture neuro exam of legs wnl however 25-OH vit D pending he has mild to moderate pain, chronically will ask spine to see tomorrow for their opinion (13) DVT prophylaxis: Plan: SCD on left leg hold chemical means due to gross hematuria Plan: extensively updated at bedside care plan d/w Dr Silva from urology will need PT, OT in light of weakness and [facility] stay due to recent fall the c-spine was imaged as he was c/o neck pain c-spine neg for fracture Admission and Anticipated Discharge Date Admission Date: February 09, 2021 Subjective patient doing well this morning, eating well, breathing comfortably got CXR due to him still requiring oxygen, maybe some atelectasis, encouraged him to use incentive spirometer discussed Lopressor, he says he takes 100mg around lunch and 75mg at night, will adjust that on medications Hb is 8.8, he has [address] with CBI, tolerating well no chest pain, no fever/chills, no cough, no nausea/vomiting, no headache discussed his compression fracture, he says he has had nagging low back pain for years he says he really has not noticed increased pain since he fell one week ago discussed the increased disc retropulsion seen on CT, he says he has never seen spine surgery for the compression fracture he agrees with consult for Dr. Knox tomorrow just to get his opinion appreciate urology assistance with this case, will defer to them on how long he needs the irrigation Review of Systems Review of Systems: All systems reviewed & are unremarkable except as noted in Subjective Respiratory: no cough and no dyspnea Cardiovascular: no chest pain and no edema Gastrointestinal: no abdominal pain, no nausea, no vomiting, no constipation and no diarrhea/loose stools Musculoskeletal: + back pain (chronic, from compression fx) and + joint pain (right knee from fracture) Physical Exam Constitutional: well developed, well nourished and + lethargic (sleepy, did not get much sleep last night); no acute distress Neck: trachea midline, no thyromegaly Respiratory: normal respiratory effort, lungs clear to auscultation Cardiovascular: Rate/Rhythm: regular rhythm and + tachycardic Heart Sounds: normal S1 and normal S2; no murmur Vessels: no JVD Extremities: normal capillary refill; no edema Gastrointestinal (Abdomen): normal bowel sounds, soft, nontender, no hepatosplenomegaly Musculoskeletal: no cyanosis or clubbing, extremities motor strength 5/5 (right leg immobilized, recent tib/fib fracture on right) Skin: no rashes, warm and dry (some bruising on leg and arms) Neurologic: normal touch/pain/proprioception, CN's II-XI intact bilaterally, moves all extremities and awake; no focal motor deficits and not confused Psychiatric: A+Ox3, euthymic affect Results & Data Results & Data ([facility]) Vital Signs (Past 12 Hours) Vital Signs Temp Pulse Pulse Pulse Resp BP Pulse Ox 02/11/21 07:34 36.8 C 90 18 128/78 92 02/11/21 05:03 102 H 02/11/21 02:45 36.8 C 82 14 131/53 L 96 02/10/21 23:21 36.7 C 78 18 124/72 95 Laboratory Results Laboratory Results - last 24 hr 02/10/21 02/10/21 02/11/21 17:19 20:09 05:29 WBC 4.42 L RBC 2.84 L Hgb 8.8 L Hct 27.1 L MCV 95.4 MCH 31.0 MCHC 32.5 RDW Std Deviation 66.1 H RDW Coeff of Chani 19.0 H Plt Count 52 L Platelet Estimate Decreased L Sodium Potassium Chloride Carbon Dioxide Anion Gap BUN Creatinine Est Cr Clr Drug Dosing Est GFR ( Amer) Est GFR (Non-Af Amer) BUN/Creatinine Ratio Glucose POC Glucose 134 H 129 H Calcium 02/11/21 02/11/21 05:29 07:28 WBC RBC Hgb Hct MCV MCH MCHC RDW Std Deviation RDW Coeff of Chani Plt Count Platelet Estimate Sodium 140 Potassium 3.7 Chloride 110 H Carbon Dioxide 25 Anion Gap 5.0 BUN 14 Creatinine 0.46 L Est Cr Clr Drug Dosing Not Reportable Est GFR ( Amer) 121.0 Est GFR (Non-Af Amer) 104.4 BUN/Creatinine Ratio 31.5 H Glucose 114 H POC Glucose 129 H Calcium 7.8 L Medications Administered Current Inpatient Medications Acetaminophen (Acetaminophen 325 Mg Tab) 650 mg PO Q4H PRN PRN Reason: leg pain Stop: 03/11/21 19:59 Last Admin: 02/11/21 02:42 Dose: 650 mg Documented by: Allopurinol (Allopurinol 300 Mg Tab) 300 mg PO QAM [facility] Stop: 03/12/21 08:59 Last Admin: 02/11/21 07:59 Dose: 300 mg Documented by: Atorvastatin Calcium (Atorvastatin 20 Mg Tab) 20 mg PO HS [facility] Stop: 03/11/21 20:59 Last Admin: 02/10/21 20:34 Dose: 20 mg Documented by: Calcitonin [place] (Calcitonin [place] Na 200 Iu/Ac 3.7 Ml Btl) 1 sprays NA [facility] Stop: 03/12/21 08:59 Last Admin: 02/11/21 08:00 Dose: 1 sprays Documented by: Finasteride (Finasteride 5 Mg Tab) [facility] Stop: 03/12/21 08:59 Last Admin: 02/11/21 08:01 Dose: 5 mg Documented by: Folic Acid (Folic Acid 1 Mg Tab) [facility] Stop: 03/12/21 08:59 Last Admin: 02/11/21 08:00 Dose: 1 mg Documented by: Hydromorphone HCl (Hydromorphone Inj 0.5 Mg/0.5 Ml Syr) 0.25 mg IV Q6H PRN PRN Reason: Pain Stop: 02/23/21 17:14 Insulin Aspart (Insulin Aspart 100 Units/Ml 3 Ml Pen) 0 units SC [facility] Stop: 03/12/21 07:29 Last Admin: 02/11/21 07:55 Dose: 3 units Documented by: Loratadine (Loratadine 10 Mg Tab) 10 mg PO QAM PRN PRN Reason: Congestion Stop: 03/11/21 17:14 Last Admin: 02/10/21 09:39 Dose: 10 mg Documented by: Magnesium Oxide (Magnesium Oxide 400 Mg Tab) 400 mg PO QAM [facility] Stop: 03/12/21 08:59 Last Admin: 02/11/21 08:00 Dose: 400 mg Documented by: Meclizine HCl (Meclizine Hcl 25 Mg Tab) 25 mg PO TID PRN PRN Reason: Vertigo Stop: 03/11/21 17:36 Melatonin (Melatonin 3 Mg Tab) 3 mg PO HS [facility] Stop: 03/11/21 20:59 Last Admin: 02/10/21 21:28 Dose: 3 mg Documented by: Metoprolol Tartrate (Metoprolol Tartrate 100 Mg Tab) 100 mg PO QAM [facility] Stop: 03/13/21 09:14 Misoprostol (Misoprostol 200 Mcg Tab) 200 mcg PO QAM [facility] Stop: 03/12/21 08:59 Last Admin: 02/11/21 08:00 Dose: 200 mcg Documented by: Multivitamins/Minerals (Calcium 600mg + Vit D 400 Iu Tab) 1 tab PO QAM [facility] Stop: 03/12/21 08:59 Last Admin: 02/11/21 07:59 Dose: 1 tab Documented by: Multivitamins/Minerals (Cerovite Adv Formula Tab) 1 tab PO BID [facility] Stop: 03/11/21 20:59 Last Admin: 02/11/21 08:01 Dose: 1 tab Documented by: Nitroglycerin (Nitroglycerin Sl 0.4 Mg/Tab Tab) 0.4 mg SL UD PRN PRN Reason: Chest Pain Stop: 03/11/21 17:14 Ondansetron HCl (Ondansetron Inj 2 Mg/Ml 2 Ml Vial) 4 mg IV Q6H PRN PRN Reason: Nausea Stop: 03/11/21 17:14 Oxybutynin Chloride (Oxybutynin Chloride 5 Mg Tab) 2.5 mg PO BID PRN PRN Reason: Bladder pain Stop: 03/11/21 17:14 Pantoprazole Sodium (Pantoprazole 40 Mg Tab) [facility] Stop: 03/12/21 06:29 Last Admin: 02/11/21 05:51 Dose: 40 mg Documented by: Phenazopyridine HCl (Phenazopyridine Hcl 100 Mg Tab) 100 mg PO TID PRN PRN Reason: bladder pain Stop: 03/11/21 17:14 Polyethylene Glycol (Polyethylene (Miralax) 17 Gm Pack) 17 gm PO DAILY [facility] Stop: 03/12/21 08:59 Last Admin: 02/11/21 07:57 Dose: Not Given Documented by: Tamsulosin HCl (Tamsulosin Hcl 0.4 Mg Cap) 0.4 mg PO QAM [facility] Stop: 03/12/21 08:59 Last Admin: 02/11/21 07:58 Dose: 0.4 mg Documented by: Ursodiol (Ursodiol 300 Mg Cap) 300 mg PO BIDM [facility] Stop: 03/11/21 17:14 Last Admin: 02/11/21 07:58 Dose: 300 mg Documented by: PG Care Time/CCT Total # of Minutes Spent Total Time Spent with Patient: Total time spent is greater than 50% in coordination of care (as documented) at patient's floor/unit and/or counseling patient: Coding Level of Care Code 78089 Subseq Hosp Care Lvl 3 Diagnoses Gross hematuria R31.0 BPH loc w/o ur obs/LUTS N40.0 Right tibial fracture S82.201A Right fibular fracture S82.401A Type 2 diabetes mellitus E11.65 Diabetes mellitus group home insulin use: without long term acute care registered nurse use Diabetes mellitus complication status: with hyperglycemia Primary sclerosing cholangitis K83.0 Thrombocytopenia D69.6 CAD (coronary artery disease) I25.10 H/O recurrent transient ischemic attacks Z86.73 Fatigue R53.83 Compression fracture of thoracic spine, non-traumatic M48.54XA DVT prophylaxis Z29.9 Hypoxia R09.02 (1) Type 2 diabetes mellitus Diabetes mellitus group home insulin use: without long term acute care registered nurse use Diabetes mellitus complication status: with hyperglycemia Qualified Code(s): E11.65 - Type 2 diabetes mellitus with hyperglycemia
[2021-02-11] MEDS ORDERED: METOPROLOL TARTRATE 100 MG TAB PO SCH (09:15)
--- NOTE | 2021-02-11 09:37 | XRay Report ---
XR chest 1V portable CLINICAL HISTORY: hypoxemia COMPARISON STUDY: October 02, 2020 FINDINGS: No pneumothorax. No pleural effusion. Lung volumes are decreased. Reticular opacities are seen within left retrocardiac region likely repre senting atelectasis/scarring that was also seen during CT of the chest performed on October 24, 2020. Cardiomediastinal silhouette is slightly enlarged. Aorta is calcified. Small right paravertebral density most likely representing prominent right inferior pulmonary vein wh ich was also seen during prior CT of the chest. Coronary stents are seen. No significant pulmonary vascular congestion.. Osseous structures: Osteopenia. Mild degenerative changes of the spine. Prosthetic right shoulder karolina int. IMPRESSION: 1. Atelectasis and possible infiltrate at the left lower lung. 2. Atherosclerosis. 3. The rest of findings as above. ACT 112: Negative or not required by law. The above report was generated using voice recognition software. It may contain grammatical, syntax o r spelling errors. Electronically signed by: Elvi Acosta DO 02/11/2021 9:36 AM
[2021-02-11] MEDS: METOPROLOL TARTRATE 100 MG TAB PO SCH (11:30)
[2021-02-11] MEDS ORDERED: FLUCONAZOLE 100 MG TAB PO SCH (13:30)
[2021-02-11] MEDS ORDERED: PATIENT'S HEIGHT AND/OR WEIGHT NEEDED SCH (13:45)
[2021-02-11] MEDS: ATORVASTATIN 20 MG TAB PO SCH (21:59)
[2021-02-11] MEDS: METOPROLOL TARTRATE 25 MG TAB PO SCH (22:00)
[2021-02-11] MEDS: MELATONIN 3 MG TAB PO SCH (23:05)
[2021-02-12] MEDS: PANTOprazole 40 MG TAB PO SCH (05:31)
[2021-02-12 06:38] LABS: Hematocrit (blood only) 29.3 % (42-52); Hemoglobin 9.3 g/dL (14.0-18.0); Mean Corpuscular Hemoglobin 30.4 pg (25-34); Mean Corpuscular Hgb Conc 31.7 g/dL (32-36); Mean Corpuscular Volume 95.8 fL (80-100); RDW Coefficient of Variation 18.8 % (11.5-14.5); RDW Standard Deviation 65.9 fL (36.4-46.3); Red Blood Count 3.06 M/uL (4.7-6.1)
[2021-02-12 06:40] LABS: Mean Platelet Volume 11.8 fL (7.4-10.4); Platelet Count 66 K/uL (130-400)
[2021-02-12 07:17] LABS: BUN Creatinine Ratio 25.8 (10-20); Creatinine Clr Calc Pharmacy 105.5 ml/min; Est GFR (African American) 113.3 ml/min; Est GFR (Non-African American) 97.8 ml/min; Potassium 3.8 mmol/L (3.5-5.1)
--- NOTE | 2021-02-12 07:38 | Hospitalist Progress Note ---
Date of Service February 12, 2021 Assessment & Plan (1) Gross hematuria: Plan: cystoscopy 02/[address] Silva Severe trabeculation and diverticulum with low bladder volume. Likely recent and previous trauma of prostate. Severe stricture of Proximal pendulous urethra clot evacuation continue to hold Lovenox today, might resume however platelets are low due to hypersplenism hgb is stable, may consider very low dose as pt is at significant risk for DVT with leg fracture Urology is managing bladder irrigation urine culture only shows pinpoint growth, hold on further antibiotics, watchful waiting on CXR changes, without infectious symptoms likely atelectasis (2) BPH loc w/o ur obs/LUTS: Plan: cont finasteride cont flomax cystoscopy 02/10, 3 way cath placed 02/10 and CBI (3) Right tibial fracture: Plan: with right fibular fracture suffered 02/02 admitted to [facility] in [place] 02/02-02/03 seen by ortho there - nonoperative Rx advised immobilizer with NWB to RLE for at least [address] [place] [facility] [place] - no change in current care plan the tib-fib fracture is BELOW the right TKR hardware pain control prn consult PT/OT, plan to return to [facility] (4) Right fibular fracture: Plan: see above in #3 check 25-OH vit D level - PENDING pain control prn (5) Type 2 diabetes mellitus: Plan: a1c 7.1% in September bsgs ac/hs DM diet novolog sliding scale monitor for hypoglycemia, no episodes today (6) Hypoxia: Plan: likely atelectasis, CXR with left basilar atelectasis, follow and encourage isb (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 follows with [facility]. no recent progression of cirrhosis. 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 platelets are stable (9) CAD (coronary artery disease): Plan: history of no ischemic symptoms at this time cont metoprolol (discussed dosing, he takes 100mg around lunch and 75mg qPM) cont statin (10) H/O recurrent transient ischemic attacks: Plan: noted not on secondary prevention (no asa, etc), may be due to low platelets (11) Fatigue: Plan: likely from traumatic past week, now a little more anemic (12) Compression fracture of thoracic spine, non-traumatic: Plan: T12, suffered in November CT abd/pelvis shows worsening retropulsion of compression fracture neuro exam of legs wnl however 25-OH vit D pending he has mild to moderate pain, chronically will ask spine to see tomorrow for their opinion (13) DVT prophylaxis: Plan: SCD on left leg hold chemical means due to gross hematuria Plan: extensively updated at bedside care plan d/w Dr Silva from urology will need PT, OT in light of weakness and [facility] stay due to recent fall the c-spine was imaged as he was c/o neck pain c-spine neg for fracture Admission and Anticipated Discharge Date Admission Date: February 09, 2021 Subjective pt states he feels kirstin rough at this time, but has not had any further hematuria, is in a tough spot due to high risk for DVT with leg brace. Review of Systems Review of Systems: Mild distress and fatigue no headache, no visual changes no speech or swallowing issues no chest pain, pressure or palpitations no shortness of breath, cough or wheezes pt with right sided long standing hernia, ileostomy, no dysuria, hematuria or frequency right leg brace to treat fracture healed by secondary intent no back pain, CVA tenderness or radicular pain no bruising, bleeding or rashes no focal signs of weakness or numbness or altered sensation no complaints of anxiety or depression.. Results & Data Results & Data ([facility]) Vital Signs (Past 12 Hours) Vital Signs Temp Pulse Pulse Resp BP Pulse Ox 02/12/21 07:07 97.7 F 65 17 135/91 90 02/12/21 03:10 98.2 F 66 18 126/64 97 02/12/21 00:00 81 02/11/21 23:19 98.6 F 67 20 145/64 H 91 PG Care Time/CCT Total # of Minutes Spent Total Time Spent with Patient: Total time spent is greater than 50% in coordination of care (as documented) at patient's floor/unit and/or counseling patient: Coding Level of Care Code 44447 Subseq Hosp Care Lvl 3 Diagnoses Gross hematuria R31.0 BPH loc w/o ur obs/LUTS N40.0 Right tibial fracture S82.201A Right fibular fracture S82.401A Type 2 diabetes mellitus E11.65 Diabetes mellitus complication status: with hyperglycemia Diabetes mellitus intermodal customer service insulin use: without intermodal customer service use Hypoxia R09.02 Primary sclerosing cholangitis K83.0 Thrombocytopenia D69.6 CAD (coronary artery disease) I25.10 H/O recurrent transient ischemic attacks Z86.73 Fatigue R53.83 Compression fracture of thoracic spine, non-traumatic M48.54XA DVT prophylaxis Z29.9 (1) Type 2 diabetes mellitus Diabetes mellitus complication status: with hyperglycemia Diabetes mellitus intermodal customer service insulin use: without jail use Qualified Code(s): E11.65 - Type 2 diabetes mellitus with hyperglycemia
[2021-02-12] MEDS: INSULIN ASPART 100 UNITS/ML 3 ML PEN SC SCH ×4 (07:47→21:01)
[2021-02-12] MEDS: FINASTERIDE 5 MG TAB PO SCH (07:55)
[2021-02-12] MEDS: allopurinoL 300 MG TAB PO SCH (07:55)
[2021-02-12] MEDS: FOLIC ACID 1 MG TAB PO SCH (07:55)
[2021-02-12] MEDS: TAMSULOSIN HCL 0.4 MG CAP PO SCH (07:56)
[2021-02-12] MEDS: CEROVITE ADV FORMULA TAB PO SCH ×2 (07:56→20:21)
[2021-02-12] MEDS: ursodioL 300 MG CAP PO SCH ×2 (07:56→16:49)
[2021-02-12] MEDS: CALCIUM 600MG + VIT D 400 IU TAB PO SCH (07:56)
[2021-02-12] MEDS: MAGNESIUM OXIDE 400 MG TAB PO SCH (07:58)
[2021-02-12] MEDS: miSOPROStoL 200 MCG TAB PO SCH (07:58)
[2021-02-12] MEDS: CALCITONIN SALMON NA 200 IU/AC 3.7 ML BTL SCH (08:00)
[2021-02-12] MEDS: POLYETHYLENE (MIRALAX) 17 GM PACK PO SCH (08:01)
--- NOTE | 2021-02-12 08:35 | Urology Progress Note ---
Date of Service February 12, 2021 Assessment & Plan (1) Gross hematuria: Plan: 80 year-old male patient, with multiple comorbidities, admitted with gross hematuria. -POD#2 Cystoscopy with urethral dilation, clot evacuation, and difficult catheter placement. -Clinically progressing as expected. -Patient remains afebrile. -Labs reviewed - white count and creatinine stable. Hemoglobin 9.3 this AM. -Three-way lama catheter intact to gravity, now draining clear yellow urine with CBI clamped. -Okay to discontinue CBI, maintain lama catheter. -Recommend home with lama catheter, plan to maintain catheter for 2-3 weeks. -Will arrange outpatient follow-up with urology service for continued care. -Expected clinical course reviewed with patient, all questions answered. Thank you for allowing us to participate in the acute care of Mr. Tesfaye. Please reconsult us with additional questions, concerns or changes in patient status. Admission and Anticipated Discharge Date Admission Date: February 09, 2021 Subjective POD#2 cystoscopy with urethral dilation, clot evacuation, and difficult catheter placement. Patient clinically doing well post procedure. Does report frustration with his ostomy that is leaking on abdomen. Tolerating lama catheter well. Denies dysuria or hematuria. Three-way lama catheter intact and patent, draining clear yellow urine with small sediment. CBI clamped and not infusing. Denies fevers or chills. Denies nausea or vomiting. Chart review: Afebrile Wbc 4.10 Hgb 9.3 Creatinine 0.54 Denies additional urologic concerns today. Review of Systems Constitutional: as per Subjective / HPI; no fever and no chills Gastrointestinal: as per Subjective / HPI; no nausea and no vomiting Genitourinary: + as per Subjective / HPI Physical Exam Constitutional: well developed and well nourished; no acute distress and not ill appearing Respiratory: normal respiratory effort and able to speak in complete sentences; no respiratory distress and no audible wheezes Gastrointestinal (Abdomen): Inspection/Auscultation: abdomen normal to inspection; abdomen not distended Percussion/Palpation: abdomen soft; abdomen nontender and no guarding Colostomy to LLQ, patent. Psychiatric: Orientation: alert, oriented x 3 and cooperative Affect: euthymic affect Genitourinary: no CVA tenderness Lama catheter patent and intact, draining clear yellow urine with small sediment. CBI clamped. Results & Data ([facility]) Vital Signs (Past 12 Hours) Vital Signs Temp Pulse Pulse Resp BP Pulse Ox 02/12/21 07:07 36.5 C 65 17 135/91 90 02/12/21 03:10 36.8 C 66 18 126/64 97 02/12/21 00:00 81 02/11/21 23:19 37.0 C 67 20 145/64 H 91 PG Care Time/CCT Total # of Minutes Spent Total Time Spent with Patient: Total time spent is greater than 50% in coordination of care (as documented) at patient's floor/unit and/or counseling patient: Coding Level of Care Code 69624 Subseq Hosp Care Lvl 2 Diagnoses Gross hematuria R31.0
[2021-02-12] MEDS: ACETAMINOPHEN 325 MG TAB PO PRN ×2 (10:55→20:21)
[2021-02-12] MEDS ORDERED: tiZANidine HCL 4 MG TABLET PO ONE (11:29)
[2021-02-12] MEDS: METOPROLOL TARTRATE 100 MG TAB PO SCH (11:53)
[2021-02-12] MEDS: SACCHAROMYCES BOULARDII 250 MG CAP PO SCH (13:03)
[2021-02-12] MEDS ORDERED: ENOXAPARIN INJ 30 MG/0.3 ML SYR SQ ONE (19:12)
[2021-02-12] MEDS: ATORVASTATIN 20 MG TAB PO SCH (20:21)
[2021-02-12] MEDS: METOPROLOL TARTRATE 25 MG TAB PO SCH (20:22)
[2021-02-12] MEDS: MELATONIN 3 MG TAB PO SCH (23:30)
[2021-02-13] MEDS: PANTOprazole 40 MG TAB PO SCH (05:46)
[2021-02-13] MEDS: INSULIN ASPART 100 UNITS/ML 3 ML PEN SC SCH ×2 (07:56→11:49)
[2021-02-13] MEDS: CALCIUM 600MG + VIT D 400 IU TAB PO SCH (08:01)
[2021-02-13] MEDS: FOLIC ACID 1 MG TAB PO SCH (08:01)
[2021-02-13] MEDS: TAMSULOSIN HCL 0.4 MG CAP PO SCH (08:01)
[2021-02-13] MEDS: allopurinoL 300 MG TAB PO SCH (08:01)
[2021-02-13] MEDS: SACCHAROMYCES BOULARDII 250 MG CAP PO SCH (08:01)
[2021-02-13] MEDS: CEROVITE ADV FORMULA TAB PO SCH (08:01)
[2021-02-13] MEDS: CALCITONIN SALMON NA 200 IU/AC 3.7 ML BTL SCH (08:01)
[2021-02-13] MEDS: FINASTERIDE 5 MG TAB PO SCH (08:01)
[2021-02-13] MEDS: miSOPROStoL 200 MCG TAB PO SCH (08:01)
[2021-02-13] MEDS: ursodioL 300 MG CAP PO SCH (08:01)
[2021-02-13] MEDS: MAGNESIUM OXIDE 400 MG TAB PO SCH (08:02)
[2021-02-13] MEDS: POLYETHYLENE (MIRALAX) 17 GM PACK PO SCH (08:10)
--- NOTE | 2021-02-13 11:31 | XRay Report ---
SINGLE VIEW CHEST CLINICAL HISTORY: Hypoxia FINDINGS: An AP, portable, upright chest radiograph is compared to study dated 02/11/2021 and correlate d with chest CT dated 10/24/2020. The heart is enlarged noting atherosclerotic calcification of the th oracic aorta. The pulmonary vasculature is noncongested. Chronic interstitial thickening is similar t o previous. There is bibasilar scarring/atelectasis. No airspace consolidation or large pleural effus ion is identified. No pneumothorax is seen. The skeletal structures are osteopenic. There are healed left-sided rib fractures. A right shoulder arthroplasty is in place. Lucency around the glenoid compo nent may represent loosening. IMPRESSION: Cardiomegaly with no acute cardiopulmonary abnormality. ACT 112: Negative or not required by law. Electronically signed by: Bernardino Hernandez M.D. 02/13/2021 11:30 AM
[2021-02-13] MEDS: METOPROLOL TARTRATE 100 MG TAB PO SCH (11:50)
--- NOTE | 2021-02-13 19:02 | Discharge Summary ---
Date of Service February 13, 2021 Admission HPI Per Admitting Provider 80yo male - numerous medical problems including h/o ulcerative colitis with ileostomy in place (prior subtotal colectomy), CAD with PR, h/o cardiac arrest, h/o primary sclerosing cholangitis followed by [facility] twice yearly, and recent right tib-fracture suffered in the [place] area last Friday. Patient and his were in the [place] region 1 week ago because his was obtaining a colonoscopy by her long-standing GI physician. Apparently he was trying to walk into the endoscopy building, got his foot stuck in a floor mat, and the glass door banged into his right leg, fracturing the tib-fib just below the right knee. He was evaluated and subsequently admitted to [facility], seen by ortho, and nonoperative management was advised with 6 weeks of immobilization and NWB status to RLE. Remained hospitalized there until Friday02/06/21 at which point he was d/c to [facility]. Has been rehabbing since then. Overnight - had 2 episodes of gross hematuria. Then, this am, had bladder pain with spasm and difficulty voiding. Attempts at catheterization at [facility] were unsuccessful and thus he was brought to [facility]. In the ER he had a lama placed with gross hematuria obtained. During my assessment he c/o fatigue since arriving at [facility]. He complains of mild neck pain. He cannot recall if he had imaging of the neck at [facility]. NO fevers or chills. He also complains of chronic mid-thoracic back pain, and also right leg pain due to his fractures. Principal Diagnosis Hypoxia supplemental oxygen ordered Gross hematuria from bladder Thrombocytopenia from splenomegaly from primary sclerosing cholangitis Tib-fib fracture with elected to heal via secondary intent of surgical intervention Colostomy with peristomal hernia Discharge Exam The patient appeared well Vital signs as documented. Lungs are clear ! to auscultation and appear unlabored Cardiac exam, Rhythm is regular.. No murmurs, rubs or gallops. Abdominal exam reveals normal bowel sounds, soft non tender, no masses Extremities are nonedematous and both pedal pulses are normal. Neurologic exam is alert and oriented, no focal loss of strength or sensation Skin is without bruises or rashes Psychologically is without concerns for anxiety or depression. Discharge Data Allergies Allergy/AdvReac Type Severity Reaction Status Date / Time Egg Derived Allergy Intermediate RASH WITH Verified 02/09/21 14:34 LARGE QUANTITIES metformin Allergy Intermediate GI ISSUES Verified 02/09/21 14:34 pollen extracts Allergy Intermediate ITCHY Verified 02/09/21 14:34 EYES, SNEEZING, CONGESTION codeine AdvReac Intermediate N/V, Verified 02/09/21 14:34 HYPOTENSTION fentanyl AdvReac Intermediate EXTREME Verified 02/09/21 14:34 NAUSEA; BP DROPS meperidine AdvReac Intermediate N/V, Verified 02/09/21 14:34 HYPOTENSTION morphine AdvReac Intermediate N/V, Verified 02/09/21 14:34 HYPOTENSTION Flu Virus Vaccine Allergy Intermediate AVOIDS DUE Uncoded 02/09/21 14:34 TO EGG ALLERGY NARCOTICS AdvReac Intermediate N/V, Uncoded 02/09/21 14:34 HYPOTENSTION Consultations 02/09/21 13:11 Consult Urology Stat 02/09/21 13:44 ED Decision to Admit Stat 02/09/21 17:15 Consult Urology Routine Procedures Performed Operation Date: 02/10/21 14:00 Actual Procedures p Cystoscopy, urethral dialation, clot evacuation(Not Applicable) - Adriano Silva, Ordered Studies 02/09/21 11:59 CT abd pelvis wo con Stat 02/09/21 15:27 CT cervical spine wo con Routine Hospital Course (1) Hypoxia: Patient was requiring oxygen on the day of discharge. This is curious as he states he has not been a smoker. Patient had a stat chest x-ray which was without any infiltrates exudates or effusions. Patient states this happened once before where he felt that he had poor oximetry results. We tried multiple oximeter as he remained low he wished to go to [facility] he went on oxygen therapy. The patient is at risk for pulmonary malaise and also is at risk for bleeding with his low platelet count from his sclerosing cholangitis and splenomegaly and recent bladder hemorrhage. Subsequently he is on low-dose Lovenox at this time to do be DVT preventative. Patient had no signs of dyspnea or sensation of dyspnea with this hypoxemia (2) Gross hematuria: cystoscopy 02/[address] Silva Severe trabeculation and diverticulum with low bladder volume. Likely recent and previous trauma of prostate. 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 hgb remains stable, may consider very low dose as pt is at significant risk for DVT with leg fracture Urology is requested Lama catheter until follow-up in the office urine culture only shows pinpoint growth, hold on further antibiotics, repeat chest x-ray without advancement of changes or heart failure seen (3) BPH loc w/o ur obs/LUTS: cont finasteride cont flomax cystoscopy 02/10, 3 way cath placed 02/10 and catheter remains at discharge for office follow-up (4) Right tibial fracture: with right fibular fracture suffered 02/02 admitted to [facility] in [place] 02/02-02/03 seen by ortho there - nonoperative Rx advised immobilizer with NWB to RLE for at least [address] Myrick, [facility] Ortho, 02/08 - no change in current care plan the tib-fib fracture is BELOW the right TKR hardware pain control prn PT/OT, plan to return to [facility] (5) Right fibular fracture: see above in #3 check 25-OH vit D level - PENDING pain control prn (6) Type 2 diabetes mellitus: a1c 7.1% in September bsgs ac/hs DM diet novolog sliding scale monitor for hypoglycemia, no episodes today (7) Hypoxia: likely atelectasis, CXR with left basilar atelectasis, follow and encourage isb (8) Primary sclerosing cholangitis: long-standing diagnosis with resulting cirrhosis. follows with [facility]. no recent progression of cirrhosis. 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 platelets are stable (10) CAD (coronary artery disease): history of no ischemic symptoms at this time cont metoprolol (discussed dosing, he takes 100mg around lunch and 75mg qPM) cont statin (11) H/O recurrent transient ischemic attacks: noted not on secondary prevention (no asa, etc), may be due to low platelets (12) Fatigue: likely from traumatic past week, now a little more anemic (13) Compression fracture of thoracic spine, non-traumatic: T12, suffered in November CT abd/pelvis shows worsening retropulsion of compression fracture neuro exam of legs wnl however 25-OH vit D pending (14) DVT prophylaxis: SCD on left leg Resume low dose Lovenox Total Time Total Time Spent Total Time Spent (In Minutes): It required greater than 30 minutes to prepare this patient for discharge Discharge Plan Discharge Items Patient Disposition: Transfer Inpatient Rehab Fac Reason For Visit: GROSS HEMATURIA, ACUTE BLOOD LOSS ANEMIA Discharge Diagnosis: gross hematuria acute blood loss anemia tib fib fracture poa Activity: Per Instructions section Activity Comment: per PT OT instructions Non-emergency contact: Primary Care Provider Call non-emergency contact if: your symptoms worsen and you have a fever Follow-up/Referrals: Tom Bucio MD [Primary Care Provider] - Diet: Carb Consistent or DM2 Addtl Attending Provider Instructions: toe touch weight bearing to right leg pt is high risk for DVT and high risk for bleeding with low platelets and previous bladder bleeding, started low dose lovenox however will defer to decison of rehab to continue or stop, Pending Studies at Discharge: No Stand-Alone Forms: My [facility] Skilled Items Patient informed of condition?: Yes DNR: Yes Discharge Level of Care: Acute rehab Communicable Disease: No Discharge Prognosis: Stable Lines: None Urinary Catheter: Yes Medications and DC Order Prescriptions: New metoprolol tartrate 25 mg Tablet 75 mg PO QPM Qty: 90 RF: 0 Saccharomyces boulardii [Florastor] 250 mg Capsule 250 mg PO DAILY Qty: 30 RF: 0 enoxaparin [Lovenox] 30 mg/0.3 mL syringe 30 mg subcut DAILY Qty: 3 RF: 0 Continued folic acid 1 mg tablet 1 mg PO QAM RF: 0 alendronate [Fosamax] 70 mg Tablet 70 mg PO WK RF: 0 ursodiol 300 mg Capsule 300 mg PO BIDM RF: 0 allopurinol 300 mg Tablet 300 mg PO QAM RF: 0 finasteride [Proscar] 5 mg Tablet 5 mg PO QAM RF: 0 magnesium oxide 400 mg magnesium Tablet 400 mg PO QAM RF: 0 meclizine [Medi-Meclizine] 25 mg Tablet 25 mg PO TID PRN (Reason: Vertigo) RF: 0 cranberry 500 mg Capsule 500 mg PO QAM RF: 0 loratadine [Claritin] 10 mg Tablet 10 mg PO QAM PRN (Reason: Congestion) RF: 0 atorvastatin [Lipitor] 20 mg Tablet 20 mg PO HS RF: 0 polyethylene glycol 3350 [Miralax] 17 gram Powder In Packet 17 g PO QDL PRN (Reason: Constipation) RF: 0 metoprolol tartrate [Lopressor] 100 mg Tablet 100 mg PO QAM RF: 0 melatonin [Melatin] 3 mg Tablet 3 mg PO HS RF: 0 tamsulosin [Flomax] 0.4 mg Capsule 0.4 mg PO QAM RF: 0 calcitonin (salmon) 200 unit/actuation spray,non-aerosol 1 spray intranasal QAM RF: 0 pantoprazole [Protonix] 40 mg Tablet,Delayed Release (Dr/Ec) 40 mg PO DAILYBB RF: 0 Humulin R Regular U-100 Insuln 100 unit/mL Solution 1 sliding scale dose SUBCUT USEASDIRECTD RF: 0 misoprostol [Cytotec] 100 mcg Tablet 200 mcg PO QAM RF: 0 docusate sodium [Colace] 100 mg Capsule 100 mg PO BID RF: 0 Lactobacillus acidophilus [Acidophilus] Capsule 0 mg PO BID RF: 0 Ocutabs Tablet 1 tab PO BID RF: 0 calcium carbonate-vitamin D3 [Calcium 500 + D] 500 mg(1,250mg) -200 unit Tablet 1 tab PO QAM RF: 0 omega 6-qzk-roy-fish oil [Fish Oil] 1,000 mg (120 mg-180 mg) Capsule 1 cap PO QID RF: 0 Discharge Orders: Discharge Order (Routine); Ordered 02/13/21 Ordered By: Anant Salazar/Other Patient Handouts: High Blood Sugar (Hyperglycemia), Hypoglycemia (Low Blood Sugar), How to Check Your Blood Sugar Admission Data Admit Date/Time: 02/09/21 15:27 Attending Provider: Anant Olmedo Admit Provider: Shakeel Mccord Primary Care Provider: Tom Bucio Other Providers: Adriano Silva ; Shakeel Mccord ; [facility] Other Interventions: Discharge Summary Assessment (RN) Last Done: 02/13/21 11:39 Coding Level of Care Code D/C DAY MANAGEMENT >30 MINS Diagnoses Gross hematuria R31.0 BPH loc w/o ur obs/LUTS N40.0 Right tibial fracture S82.201A Right fibular fracture S82.401A Type 2 diabetes mellitus E11.65 Diabetes mellitus exterminator helper insulin use: without assisted use Diabetes mellitus complication status: with hyperglycemia Hypoxia R09.02 Primary sclerosing cholangitis K83.0 Thrombocytopenia D69.6 CAD (coronary artery disease) I25.10 H/O recurrent transient ischemic attacks Z86.73 Fatigue R53.83 Compression fracture of thoracic spine, non-traumatic M48.54XA DVT prophylaxis Z29.9 Hypoxia R09.02
--- NOTE | 2021-02-23 08:59 | Coding Query ---
PRESENT ON ADMISSION QUERY To promote full compliance with coding requirements relating to pateint care, physician participation is requested in all cases of kitchen worker uncertainty. Please assist us with the question(s) below: Please place an X within the parenthesis (x). The following diagnosis listed in this patient's medical record require physician assistance to determine if they were present on admission (POA) or not. Please advise for each diagnosis whether it was present on admission, not present on admission, or if it was clinically undetermined. 1.ACUTE BLOOD LOSS ANEMIA - documented on Discharge Summary (xxx ) Present On Admission ( ) Not Present On Admission ( ) Clinically Undetermined Thank you Nancy Aguayo *Definition of the present on admission (POA)-Present on admission is defined as present at the time the order for inpatient admission occurs. Conditions that develop during an outpatient encounter prior to a written order for inpatient admission (including emergency department, observation, or outpatient surgery) are considered present on admission. MTDD
== END 2021-02-13 12:20 | DRG 699 ==
LOC: ED 11:07 → 2E 15:27 → SUATTDRO 15:27 → 2E 16:36
DX: Z79.4 Long term (current) use of insulin; Z88.5 Allergy status to narcotic agent; S82.201D Unspecified fracture of shaft of right tibia, subsequent encounter for closed fracture with routine healing; Z93.3 Colostomy status; Z91.012 Allergy to eggs; E78.00 Pure hypercholesterolemia, unspecified; Z22.8 Carrier of other infectious diseases; Z86.73 Personal history of transient ischemic attack (TIA), and cerebral infarction without residual deficits; Z91.81 History of falling; Z51.81 Encounter for therapeutic drug level monitoring; Z93.2 Ileostomy status; M54.2 Cervicalgia; Z88.7 Allergy status to serum and vaccine; N40.0 Benign prostatic hyperplasia without lower urinary tract symptoms; K83.01 Primary sclerosing cholangitis; I10 Essential (primary) hypertension; R33.9 Retention of urine, unspecified; R53.83 Other fatigue; S82.401D Unspecified fracture of shaft of right fibula, subsequent encounter for closed fracture with routine healing; Z88.8 Allergy status to other drugs, medicaments and biological substances; D62 Acute posthemorrhagic anemia; D73.2 Chronic congestive splenomegaly; Z66 Do not resuscitate; R31.0 Gross hematuria; N32.3 Diverticulum of bladder; K74.3 Primary biliary cirrhosis; R09.02 Hypoxemia; J98.11 Atelectasis; D69.59 Other secondary thrombocytopenia; N32.89 Other specified disorders of bladder; N31.9 Neuromuscular dysfunction of bladder, unspecified; N35.014 Post-traumatic urethral stricture, male, unspecified; Z95.5 Presence of coronary angioplasty implant and graft; Z79.01 Long term (current) use of anticoagulants; Z79.899 Other long term (current) drug therapy; X58.XXXD Exposure to other specified factors, subsequent encounter; Z91.048 Other nonmedicinal substance allergy status; I25.2 Old myocardial infarction; E11.9 Type 2 diabetes mellitus without complications; Z82.49 Family history of ischemic heart disease and other diseases of the circulatory system; Z86.718 Personal history of other venous thrombosis and embolism; M48.54XD Collapsed vertebra, not elsewhere classified, thoracic region, subsequent encounter for fracture with routine healing; I25.10 Atherosclerotic heart disease of native coronary artery without angina pectoris

== ENCOUNTER 2022-02-04 09:25 | Inpatient (IN) ==
[2022-02-04] MEDS ORDERED: SODIUM CHLORIDE 0.9% 1000ML 1,000 ML IV ONE ×2 (10:12→11:37)
--- NOTE | 2022-02-04 10:17 | Emergency Department Note ---
Impression & Plan Sepsis, Acute renal failure, Cystitis, Acute hyperkalemia, Elevated bilirubin, Hyponatremia ED Provider Note Name: KENDRA HUERTA Age: 81 Sex: M Arrives Via: Walk-In Informant: Patient, ED Provider: Quentin Quigley MD Chief Complaint: Penile swelling Impression: As per impressions above Medical Decision Makin-year-old gentleman with quite complex past medical history including hypertension, type 2 diabetes, cirrhosis, CAD, chronic thrombocytopenia in addition to primary sclerosing cholangitis and a recent history of difficulty with urethral strictures multiple urology Procedures. He has been on and off multiple antibiotics the last few months dealing with recurrent UTI issues and then difficulty with ureter involving what sounds like a urethral laceration during multiple procedures and has an indwelling Dos Santos now. He recently had th is replaced and it sounds like it was not quite flowing well initially the notes after manipulating it some eventually started flowing well. Patient arrives because he has had increasing penile swelling, erythema, fatigue and acting like he was septic much like previous infectious times. On evaluation patient is jaundice, somewhat tired appearing though awake alert oriented. exam reveals an edematous and moderately erythematous penis and some erythema of the mildly swollen scrotum. There is no abscess like findings on examination and Dos Santos is in place. Very much looks like there is some cellulitis of the penis itself by examination. Laboratory evaluation including a sepsis work-up of blood cultures lactic acid amongst others was obtained. By exam patient did appear somewhat dry this given 1 L IV fluids. Labs returning concerning for significantly elevated procalcitonin though normal white count and normal lactic acid. Setting of concern for infection, cellulitis, initial hypotension and elevated procalcitonin emesis suspect this is severe sepsis though not quite septic shock at this point. His creatinine is significantly elevated consistent with either recent obstructive pathology or significant dehydration. While his bilirubin is elevated his LFTs otherwise look okay and I think this is unlikely hepatorenal syndrome at this time given the way he examines. Urine is concerning for UTI and in the setting of severe sepsis he was given empiric antibiotics. With his acute renal failure him a bit anxious I am giving him a full 30/kg bolus right off the bat though after the first liter of fluid he did appear improved and was breathing comfortably so a second liter of IV fluids were given given the degree of dehydration he had. I would hold off on further fluids at this time especially given the amount of other findings and wanting to avoid overloading in the setting of acute renal failure. His sodium is quite low as well and would not want overcompensated. Other notable labs were his hyperkalemia without EKG changes this was confirmed by POC testing which resulted a potassium of 5.9. Patient was given insulin, bicarb, dextrose along with the fluids for treatment. Without EKG changes did not feel he needs calcium infusion. At this point I do not think he requires emergent dialysis and wants to see how his labs trend over the next few hours and evening. Patient was reevaluated many times throughout the stay and he does appear much better with fluids thus I think it is reasonable for hospitalization at this point here to monitor where his labs go. I discussed this with the hospitalist who is on board with this plan and did review his labs. They note they will get touch with GI for further input. Prior Medical Record and Triage/Nursing Notes reviewed by Me Additional history obtained from chart and Differentials:Infection, dehydration, metabolic abnormality, hypo/hyperglycemia, electrolyte disturbance, anemia, hypoxia, cardiac sources, intracerebral event, toxicologic, neurologic, as well as other pathologies. Vital Signs: reviewed and remarkable for mild hypotension Interventions: Normal saline bolus 1 L IV x2, cefepime 2 g IV, daptomycin 425 mg IV (previous MRSA urine) Of note patient was not initially given a 30 mL/kg IV fluid bolus as his labs reveal acute renal failure and wish to avoid overloading him. He was initially given 1 L IV fluids which resulted in excellent blood pressure response. This was followed later on with a second liter IV fluids and close monitoring of his fluid status. Labs:Reviewed and remarkable for low platelets slightly below baseline, elevated bili beyond baseline, normal white blood cell count, elevated procalcitonin Imaging:CT of the abdomen pelvis reveals no acute findings without any obstructive changes no acute changes within the liver as per radiologist read EKG:EKG indication sepsis and hyperkalemia. EKG is similar to that of February 09, 2021. Sinus rhythm with first-degree AV block at 74 bpm and a QTC of 475. There is no ectopy or ischemia appreciated. There are no significantly peaked T waves Cardiac/Tele Monitoring: Cardiac Monitoring: An Order was placed for continuous cardiac monitoring. The monitor shows a rate of 70with a normal sinus rhythm. Consults:Dr. Martines of the [facility] Hospitalist service Plan: Disposition:Hospitalization. Condition: fair History of Present Illness:81-year-old gentleman arrives for evaluation of penile pain. Patient has been dealing with some issues regarding stenosis in his urethra having been to [place] and urologist multiple times for scopes and different procedures. He has been on and off different antibiotics including Augmentin and Macrobid as well as a course of fluconazole several times. He was just seen at [facility] a few days ago where they did another scope telling him that the laceration inside his urethra seems to have gotten longer but is not as deep. A catheter was replaced at that time. Since then decreasing appetite and lethargy. The last 48 hours he has been much more tired and had no appetite to eat yesterday. Associated with increasing swelling of the skin around the penis and increasing redness. This morning significantly increased redness and patient was quite weak with standing. denies any known fevers, vomiting, abdominal pain, back pain, altered mental status, syncope, chest pain, shortness of breath, new leg swelling, new leg rashes (he always has erythema of his lower legs), or other concerning symptoms. Patient has been on multiple antibiotics recently though nothing today. Not the symptoms better or worse other than standing seems to make it slightly worse. ROS: See above HPI for pertinent positives & negatives. A total of 10 systems reviewed and were otherwise negative. Past Medical History:See Below Past Surgical History:See Below Family History:See Below Social History:See Below Home Medications:See Below Allergies:See Below Vitals:Blood Pressure: 92/50, Pulse 73, RR 22, T 36.0C, O2 93% on RA Physical Exam: GENERAL: Patient is tired appearing and in mild distress. EYES: Scleral yellowing, unremarkable pupils. ENT: Mucous membranes moist, no nasal congestion. NECK: No masses appreciated, nomeningismus, trachea is midline. RESPIRATORY: No dyspnea. Clear to auscultation and equal bilaterally. No wheeze, no rhonchi. CARDIOVASCULAR: Regular rate and rhythm.No murmurs, rubs, gallops appreciated. GASTROINTESTINAL: Abdomen soft, non-tender, no peritonitis.Bowel sounds positive.No masses appreciated. BACK: No midline tenderness, no CVA tenderness : Edematous swollen mildly erythematous penis and mild swelling/erythema of scrotum. Dos Santos in place with yellow urine. No fluctuance of scrutom/penis, no TTP EXTREMITIES: Normal motion all extremities, no cyanosis, bilateral lower leg edema. NEUROLOGIC: Alert and oriented, no acute motor or sensory deficits, no focal weakness, cranial nerves grossly intact. SKIN: bilateral lower leg vasculitis like rash, mild jaundice, no diaphoresis. PSYCH: Appropriate GCS: 15 ED Course: Times/Reassessments: Multiple repeat evaluations patient throughout his stay. His blood pressure improved rapidly with initial fluid bolus patient awake alert oriented answering all questions without evidence of encephalopathy. He has no significant abdominal pain but is agreeable to CT abdomen pelvis given the acute renal failure which findings as per radiologist read. Critical Care: I have personally spent 45minutes of critical care time in the direct management of this patient. Sepsis in the setting of acute renal failure and mild hypotension requiring resuscitation and aggressive management. This as a life/limb threatening event. This 45 minutes is in excess of all separately billable procedures. Quentin Quigley MD Past Med/Surg History Medical History Abscess of right shoulder (~09/2020) Benign prostatic hyperplasia with urinary obstruction CAD (coronary artery disease) STENT X 1 (2001) AT [facility] Enlarged prostate High cholesterol History of IBS History of kidney stones History of myocardial infarction STENT X 1 (2001) S/P B/L TKA Stable; Has not had to use NTG since stent placement HTN (hypertension) Hx of basal cell carcinoma Hx of deep venous thrombosis LLE "A LONG TIME AGO" Hx of ulcerative colitis S/p colectomy- ileostomy 1990 and 1994 Hx of vertigo Ileostomy in place Left lower lobe pneumonia 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 Aneurysm present since FL in 2001 per cardio Macular degeneration Neurogenic bladder NO DOS SANTOS CATHETER 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 PVCs (premature ventricular contractions) Asymptomatic per patient Right tibial fracture Right tibial fracture Sciatica TIA (transient ischemic attack) TIA vs complex migraine February 2019 Type 2 diabetes mellitus Surgical History History of anesthesia reaction SLOW TO WAKE, BREATHING ISSUES, NAUSEA AND VOMITING History of appendectomy History of arthroplasty of right shoulder Right TSA= 11/18/16= Grade 1 view, MAC#4 at [facility] History of cholecystectomy History of colonoscopy History of cystoscopy History of ERCP MULTIPLE History of exploratory laparotomy X2 "COMMON DUCT RECONSTRUCTION" History of hand surgery RT/LEFT THUMBS History of lumbar laminectomy History of total bilateral knee replacement Hx of bilateral cataract extraction Family History Father Myocardial infarction Family/Other Hypertension Nephrolithiasis Sister FH: ovarian cancer Other Family history of breast cancer in mother Social History Smoking Status: Never smoker Second Hand Exposure: No; Hx Alcohol Use: Yes Alcohol type: wine Hx Substance Use: No Preferred Language: Macedonian Communication Ability: Effective Electric[employer] Required: No Beliefs That Will Affect Care: None marital status: Current Living Situation: Spouse Current Living Situation Comment: Currently in [facility] post fall and leg fracture current occupational status: retired current occupation: [employer] Feels Safe at Home: Yes Safety Concerns: Feels Safe At This Time Assistive Devices: None and Walker Allergies Allergies Allergy/AdvReac Type Severity Reaction Status Date / Time Egg Derived Allergy Intermediate RASH WITH Verified 02/04/22 15:01 LARGE QUANTITIES metformin Allergy Intermediate GI ISSUES Verified 02/04/22 15:01 pollen extracts Allergy Intermediate ITCHY Verified 02/04/22 15:01 EYES, SNEEZING, CONGESTION codeine AdvReac Intermediate N/V, Verified 02/04/22 15:01 HYPOTENSTION fentanyl AdvReac Intermediate EXTREME Verified 02/04/22 15:01 NAUSEA; BP DROPS meperidine AdvReac Intermediate N/V, Verified 02/04/22 15:01 HYPOTENSTION morphine AdvReac Intermediate N/V, Verified 02/04/22 15:01 HYPOTENSTION Flu Virus Vaccine Allergy Intermediate AVOIDS DUE Uncoded 02/04/22 15:01 TO EGG ALLERGY NARCOTICS AdvReac Intermediate N/V, Uncoded 02/04/22 15:01 HYPOTENSTION Home Meds Home Medications Medication Instructions Recorded Confirmed alendronate 70 mg tablet (Fosamax) 70 mg PO WK 09/29/18 02/04/22 allopurinol 300 mg tablet 300 mg PO QAM 09/29/18 02/04/22 finasteride 5 mg tablet (Proscar) 5 mg PO QAM 09/29/18 02/04/22 magnesium oxide 400 mg PO QAM 09/29/18 02/04/22 ursodiol 300 mg capsule 300 mg PO BIDM 09/29/18 02/04/22 folic acid 1 mg tablet 1 mg PO QAM 02/02/19 02/04/22 cranberry 500 mg capsule 500 mg PO QAM 04/02/19 02/04/22 meclizine 25 mg tablet 25 mg PO TID PRN Vertigo 04/02/19 02/04/22 (Medi-Meclizine) loratadine 10 mg tablet (Claritin) 10 mg PO QAM PRN Congestion 06/24/19 02/04/22 calcium carbonate 500 mg-vitamin 1 tab PO QAM 02/09/21 02/04/22 D3 5 mcg (200 unit) tablet (Calcium 500 + D) misoprostol 100 mcg tablet 200 mcg PO QAM 02/09/21 02/04/22 (Cytotec) omega 0-mnj-qpf-fish oil 1,000 mg 1 cap PO QID 02/09/21 02/04/22 (120 mg-180 mg) capsule (Fish Oil) vitamin A-vitamin C-vit E-min 1 tab PO BID 02/09/21 02/04/22 tablet (Ocutabs) alfuzosin 10 mg tablet,extended 10 mg PO DAILY 04/30/21 02/04/22 release 24 hr aspirin 81 mg tablet,delayed 81 mg PO DAILY 04/30/21 02/04/22 release diclofenac sodium 75 mg 75 mg PO DAILY 04/30/21 02/04/22 tablet,delayed release metoprolol tartrate 100 mg tablet 50 mg PO QAM 04/30/21 02/04/22 (Lopressor) omeprazole 20 mg capsule,delayed 20 mg PO DAILY 04/30/21 02/04/22 release rosuvastatin 10 mg tablet 10 mg PO DAILY 04/30/21 02/04/22 melatonin 3 mg tablet 3 mg PO HS 02/04/22 02/04/22 Previous Rx's Medication Instructions Recorded Saccharomyces boulardii 250 mg 250 mg PO DAILY #30 caps 02/13/21 capsule (Florastor) metoprolol tartrate 25 mg tablet 75 mg PO QPM #90 tabs 02/13/21 amoxicillin 500 mg-potassium 1 tab PO BID 6 days #20 tabs 12/14/21 clavulanate 125 mg tablet (Augmentin) fluconazole 100 mg tablet 200 mg PO DAILY 10 days #20 tabs 01/10/22 (Diflucan) Results & Data (ED) Vital Signs Vital Signs - 24 hr 02/04/22 09:27 02/04/22 12:31 02/04/22 14:00 Temperature 36.0 C L 36.5 C Temperature Source Temporal Artery Scan Oral Pulse Rate 73 Pulse Rate [Apical] 81 74 Pulse Rate from SpO2 Sensor Respiratory Rate 22 20 20 Respiratory Effort / Characteristics Spontaneous Respiratory Depth Normal Respiratory Pattern Regular Blood Pressure 92/50 L Blood Pressure [Right Arm] 103/49 L 106/58 L Blood Pressure Mean 64 Blood Pressure Mean [Right Arm] 67 74 Pulse Oximetry 93 93 96 Oxygen Delivery Method Room Air Room Air Room Air Sepsis Recent Fever Within 48 Hours No Sepsis New/Unexplained Change in Mental Status N/A Sepsis Action Taken by Nursing No Action Required 02/04/22 12:36 02/04/22 12:40 02/04/22 12:55 Temperature Temperature Source Pulse Rate 82 77 Pulse Rate [Apical] Pulse Rate from SpO2 Sensor 82 79 Respiratory Rate 23 19 21 Respiratory Effort / Characteristics Respiratory Depth Respiratory Pattern Blood Pressure Blood Pressure [Right Arm] Blood Pressure Mean Blood Pressure Mean [Right Arm] Pulse Oximetry 93 93 Oxygen Delivery Method Sepsis Recent Fever Within 48 Hours Sepsis New/Unexplained Change in Mental Status Sepsis Action Taken by Nursing 02/04/22 13:00 02/04/22 13:00 02/04/22 13:10 Temperature Temperature Source Pulse Rate 93 H 86 Pulse Rate [Apical] Pulse Rate from SpO2 Sensor 95 H 86 Respiratory Rate 25 H 22 Respiratory Effort / Characteristics Respiratory Depth Respiratory Pattern Blood Pressure 114/79 Blood Pressure [Right Arm] Blood Pressure Mean 90 Blood Pressure Mean [Right Arm] Pulse Oximetry 89 L 88 L Oxygen Delivery Method Sepsis Recent Fever Within 48 Hours Sepsis New/Unexplained Change in Mental Status Sepsis Action Taken by Nursing 02/04/22 13:20 02/04/22 13:30 02/04/22 13:30 Temperature Temperature Source Pulse Rate 83 81 Pulse Rate [Apical] Pulse Rate from SpO2 Sensor 82 81 Respiratory Rate 23 20 Respiratory Effort / Characteristics Respiratory Depth Respiratory Pattern Blood Pressure 104/56 L Blood Pressure [Right Arm] Blood Pressure Mean 72 Blood Pressure Mean [Right Arm] Pulse Oximetry 91 92 Oxygen Delivery Method Sepsis Recent Fever Within 48 Hours Sepsis New/Unexplained Change in Mental Status Sepsis Action Taken by Nursing 02/04/22 13:40 02/04/22 13:50 02/04/22 14:00 Temperature Temperature Source Pulse Rate 79 78 Pulse Rate [Apical] Pulse Rate from SpO2 Sensor 79 79 Respiratory Rate 19 20 Respiratory Effort / Characteristics Respiratory Depth Respiratory Pattern Blood Pressure 106/58 L Blood Pressure [Right Arm] Blood Pressure Mean 74 Blood Pressure Mean [Right Arm] Pulse Oximetry 93 95 Oxygen Delivery Method Sepsis Recent Fever Within 48 Hours Sepsis New/Unexplained Change in Mental Status Sepsis Action Taken by Nursing 02/04/22 14:00 02/04/22 14:10 02/04/22 14:20 Temperature Temperature Source Pulse Rate 72 77 76 Pulse Rate [Apical] Pulse Rate from SpO2 Sensor 76 76 78 Respiratory Rate 22 17 14 Respiratory Effort / Characteristics Respiratory Depth Respiratory Pattern Blood Pressure Blood Pressure [Right Arm] Blood Pressure Mean Blood Pressure Mean [Right Arm] Pulse Oximetry 94 94 95 Oxygen Delivery Method Sepsis Recent Fever Within 48 Hours Sepsis New/Unexplained Change in Mental Status Sepsis Action Taken by Nursing 02/04/22 14:30 02/04/22 14:30 Temperature Temperature Source Pulse Rate 80 Pulse Rate [Apical] Pulse Rate from SpO2 Sensor 78 Respiratory Rate 24 Respiratory Effort / Characteristics Respiratory Depth Respiratory Pattern Blood Pressure 106/57 L Blood Pressure [Right Arm] Blood Pressure Mean 73 Blood Pressure Mean [Right Arm] Pulse Oximetry 95 Oxygen Delivery Method Sepsis Recent Fever Within 48 Hours Sepsis New/Unexplained Change in Mental Status Sepsis Action Taken by Nursing Laboratory Data Result diagrams: 02/04/22 10:28 02/04/22 14:49 Lab Results 02/04/22 02/04/22 02/04/22 Range/Units 10:28 10:28 10:28 WBC 5.49 (4.8-10.8) K/ul RBC 2.65 L (4.63-6.08) M/uL Hgb 9.0 L (14.0-18.0) g/dl POC Hgb (14.0-18.0) g/dl Hct 26.6 L (40.1-51.0) % POC Hct (42-52) % MCV 100.4 H (80.0-100.0) fL MCH 34.0 (25.0-34.0) pg MCHC 33.8 (32.0-36.0) g/dL RDW Std Deviation 64.8 H (36.4-46.3) fL RDW Coeff of Chani 17.7 H (11.5-14.5) % Plt Count 30 L (130-400) K/uL Immature Gran % (Auto) 1.1 % Neut % (Auto) 84.1 % Lymph % (Auto) 4.6 % [place] % (Auto) 9.5 % Eos % (Auto) 0.5 % Baso % (Auto) 0.2 % Neut # (Auto) 4.62 (1.4-6.5) K/uL Lymph # (Auto) 0.25 L (1.2-3.4) K/uL [place] # (Auto) 0.52 (0.24-0.82) K/uL Eos # (Auto) 0.03 (0-0.50) K/uL Baso # (Auto) 0.01 (0-0.2) K/uL Immature Gran # (Auto) 0.06 H (0.00-0.02) K/uL Platelet Estimate Signific. Decreased L (Normal) Ovalocytes 1+ Echinocytes 1+ PT 14.1 H (9.0-12.0) Seconds INR 1.3 H (0.9-1.1) POC Sodium (135-144) mmol/L Sodium (136-145) mmol/L POC Potassium (3.3-5.0) mmol/L Potassium (3.5-5.1) mmol/L POC Chloride (101-112) mmol/L Chloride (98-107) mmol/L Carbon Dioxide (21-32) mmol/L POC Total CO2 (24-31) mmol/L Anion Gap (3-11) POC Anion Gap (16-25) mmol/L POC BUN (7-18) mg/dl BUN (6-23) mg/dl Creatinine (0.6-1.4) mg/dl POC Creatinine (0.6-1.3) mg/dl Est Cr Clr Drug Dosing ml/min Est GFR ( Amer) ml/min Est GFR (Non-Af Amer) ml/min BUN/Creatinine Ratio (10-20) Glucose (70-99(Fasting)) mg/dl POC Glucose (70-99) mg/dl POC Glucose (other) (70-99) mg/dl Lactate Cancelled Calcium (8.5-10.1) mg/dl POC Ioniz Calcium [place] (1.12-1.32) mmol/l Magnesium (1.7-2.4) mg/dl Total Bilirubin (0.2-1.0) mg/dl Direct Bilirubin (0-0.2) mg/dl AST (13-39) U/L ALT (7-52) U/L Alkaline Phosphatase (34-104) U/L Troponin I High Sens (0-20) pg/ml Total Protein (6.0-8.3) gm/dl Albumin (3.4-5.0) gm/dl Lipase (11-82) U/L Procalcitonin (0-0.5) ng/ml Urine Color Urine Appearance (Clear) Urine pH (4.5-7.5) Ur Specific [place] (1.000-1.030) Urine Protein (Negative) Urine Glucose (UA) (Negative) Urine Ketones (Negative) Urine Blood (Negative) Urine Nitrite (Negative) Urine Bilirubin (Negative) Urine Urobilinogen (Negative) Ur Leukocyte Esterase (Negative) Urine WBC (Auto) (0-5) /hpf Urine RBC (Auto) (0-4) /hpf U Hyaline Cast (Auto) (0-5) /lpf U Epithel Cells (Auto) (0-5) /lpf Urine Bacteria (Auto) (Negative) Urine Yeast SARS-CoV-2, RNA, NAAT (NEGATIVE) 02/04/22 02/04/22 02/04/22 Range/Units 10:28 10:28 10:39 WBC (4.8-10.8) K/ul RBC (4.63-6.08) M/uL Hgb (14.0-18.0) g/dl POC Hgb (14.0-18.0) g/dl Hct (40.1-51.0) % POC Hct (42-52) % MCV (80.0-100.0) fL MCH (25.0-34.0) pg MCHC (32.0-36.0) g/dL RDW Std Deviation (36.4-46.3) fL RDW Coeff of Chain (11.5-14.5) % Plt Count (130-400) K/uL Immature Gran % (Auto) % Neut % (Auto) % Lymph % (Auto) % [place] % (Auto) % Eos % (Auto) % Baso % (Auto) % Neut # (Auto) (1.4-6.5) K/uL Lymph # (Auto) (1.2-3.4) K/uL [place] # (Auto) (0.24-0.82) K/uL Eos # (Auto) (0-0.50) K/uL Baso # (Auto) (0-0.2) K/uL Immature Gran # (Auto) (0.00-0.02) K/uL Platelet Estimate (Normal) Ovalocytes Echinocytes PT (9.0-12.0) Seconds INR (0.9-1.1) POC Sodium (135-144) mmol/L Sodium 127 L (136-145) mmol/L POC Potassium (3.3-5.0) mmol/L Potassium 5.7 H (3.5-5.1) mmol/L POC Chloride (101-112) mmol/L Chloride 105 (98-107) mmol/L Carbon Dioxide 13 L (21-32) mmol/L POC Total CO2 (24-31) mmol/L Anion Gap 9 (3-11) POC Anion Gap (16-25) mmol/L POC BUN (7-18) mg/dl BUN 61 H (6-23) mg/dl Creatinine 2.36 H (0.6-1.4) mg/dl POC Creatinine (0.6-1.3) mg/dl Est Cr Clr Drug Dosing 23.7 ml/min Est GFR ( Amer) 28.4 ml/min Est GFR (Non-Af Amer) 24.5 ml/min BUN/Creatinine Ratio 25.8 H (10-20) Glucose 169 H (70-99(Fasting)) mg/dl POC Glucose (70-99) mg/dl POC Glucose (other) (70-99) mg/dl Lactate Calcium 7.7 L (8.5-10.1) mg/dl POC Ioniz Calcium [place] (1.12-1.32) mmol/l Magnesium 1.9 (1.7-2.4) mg/dl Total Bilirubin 7.0 H (0.2-1.0) mg/dl Direct Bilirubin 5.2 H (0-0.2) mg/dl AST 30 (13-39) U/L ALT 27 (7-52) U/L Alkaline Phosphatase 125 H (34-104) U/L Troponin I High Sens 11.1 (0-20) pg/ml Total Protein 5.4 L (6.0-8.3) gm/dl Albumin 2.7 L (3.4-5.0) gm/dl Lipase 22 (11-82) U/L Procalcitonin 2.77 H (0-0.5) ng/ml Urine Color Dark Yellow Urine Appearance Turbid A (Clear) Urine pH 5.0 (4.5-7.5) Ur Specific [place] 1.019 (1.000-1.030) Urine Protein 2+ H (Negative) Urine Glucose (UA) Negative (Negative) Urine Ketones Trace H (Negative) Urine Blood 3+ H (Negative) Urine Nitrite Positive A (Negative) Urine Bilirubin 3+ H (Negative) Urine Urobilinogen Negative (Negative) Ur Leukocyte Esterase 3+ H (Negative) Urine WBC (Auto) >30 H (0-5) /hpf Urine RBC (Auto) 5-10 H (0-4) /hpf U Hyaline Cast (Auto) 1-5 (0-5) /lpf U Epithel Cells (Auto) >30 H (0-5) /lpf Urine Bacteria (Auto) Negative (Negative) Urine Yeast Not Reportable SARS-CoV-2, RNA, NAAT (NEGATIVE) 02/04/22 02/04/22 02/04/22 Range/Units 10:39 11:41 11:46 WBC (4.8-10.8) K/ul RBC (4.63-6.08) M/uL Hgb (14.0-18.0) g/dl POC Hgb 9.2 L (14.0-18.0) g/dl Hct (40.1-51.0) % POC Hct 27 L (42-52) % MCV (80.0-100.0) fL MCH (25.0-34.0) pg MCHC (32.0-36.0) g/dL RDW Std Deviation (36.4-46.3) fL RDW Coeff of Chani (11.5-14.5) % Plt Count (130-400) K/uL Immature Gran % (Auto) % Neut % (Auto) % Lymph % (Auto) % [place] % (Auto) % Eos % (Auto) % Baso % (Auto) % Neut # (Auto) (1.4-6.5) K/uL Lymph # (Auto) (1.2-3.4) K/uL [place] # (Auto) (0.24-0.82) K/uL Eos # (Auto) (0-0.50) K/uL Baso # (Auto) (0-0.2) K/uL Immature Gran # (Auto) (0.00-0.02) K/uL Platelet Estimate (Normal) Ovalocytes Echinocytes PT (9.0-12.0) Seconds INR (0.9-1.1) POC Sodium 130 L (135-144) mmol/L Sodium (136-145) mmol/L POC Potassium 5.9 H (3.3-5.0) mmol/L Potassium (3.5-5.1) mmol/L POC Chloride 108 (101-112) mmol/L Chloride (98-107) mmol/L Carbon Dioxide (21-32) mmol/L POC Total CO2 13 L (24-31) mmol/L Anion Gap (3-11) POC Anion Gap 15.0 L (16-25) mmol/L POC BUN 49 H (7-18) mg/dl BUN (6-23) mg/dl Creatinine (0.6-1.4) mg/dl POC Creatinine 2.5 H (0.6-1.3) mg/dl Est Cr Clr Drug Dosing ml/min Est GFR ( Amer) ml/min Est GFR (Non-Af Amer) ml/min BUN/Creatinine Ratio (10-20) Glucose (70-99(Fasting)) mg/dl POC Glucose (70-99) mg/dl POC Glucose (other) 180 H (70-99) mg/dl Lactate Calcium (8.5-10.1) mg/dl POC Ioniz Calcium [place] 1.04 L (1.12-1.32) mmol/l Magnesium (1.7-2.4) mg/dl Total Bilirubin (0.2-1.0) mg/dl Direct Bilirubin (0-0.2) mg/dl AST (13-39) U/L ALT (7-52) U/L Alkaline Phosphatase (34-104) U/L Troponin I High Sens (0-20) pg/ml Total Protein (6.0-8.3) gm/dl Albumin (3.4-5.0) gm/dl Lipase (11-82) U/L Procalcitonin (0-0.5) ng/ml Urine Color Urine Appearance (Clear) Urine pH (4.5-7.5) Ur Specific [place] (1.000-1.030) Urine Protein (Negative) Urine Glucose (UA) (Negative) Urine Ketones (Negative) Urine Blood (Negative) Urine Nitrite (Negative) Urine Bilirubin (Negative) Urine Urobilinogen (Negative) Ur Leukocyte Esterase (Negative) Urine WBC (Auto) (0-5) /hpf Urine RBC (Auto) (0-4) /hpf U Hyaline Cast (Auto) (0-5) /lpf U Epithel Cells (Auto) (0-5) /lpf Urine Bacteria (Auto) (Negative) Urine Yeast SARS-CoV-2, RNA, NAAT NEGATIVE (NEGATIVE) 02/04/22 Range/Units 13:05 WBC (4.8-10.8) K/ul RBC (4.63-6.08) M/uL Hgb (14.0-18.0) g/dl POC Hgb (14.0-18.0) g/dl Hct (40.1-51.0) % POC Hct (42-52) % MCV (80.0-100.0) fL MCH (25.0-34.0) pg MCHC (32.0-36.0) g/dL RDW Std Deviation (36.4-46.3) fL RDW Coeff of Chani (11.5-14.5) % Plt Count (130-400) K/uL Immature Gran % (Auto) % Neut % (Auto) % Lymph % (Auto) % [place] % (Auto) % Eos % (Auto) % Baso % (Auto) % Neut # (Auto) (1.4-6.5) K/uL Lymph # (Auto) (1.2-3.4) K/uL [place] # (Auto) (0.24-0.82) K/uL Eos # (Auto) (0-0.50) K/uL Baso # (Auto) (0-0.2) K/uL Immature Gran # (Auto) (0.00-0.02) K/uL Platelet Estimate (Normal) Ovalocytes Echinocytes PT (9.0-12.0) Seconds INR (0.9-1.1) POC Sodium (135-144) mmol/L Sodium (136-145) mmol/L POC Potassium (3.3-5.0) mmol/L Potassium (3.5-5.1) mmol/L POC Chloride (101-112) mmol/L Chloride (98-107) mmol/L Carbon Dioxide (21-32) mmol/L POC Total CO2 (24-31) mmol/L Anion Gap (3-11) POC Anion Gap (16-25) mmol/L POC BUN (7-18) mg/dl BUN (6-23) mg/dl Creatinine (0.6-1.4) mg/dl POC Creatinine (0.6-1.3) mg/dl Est Cr Clr Drug Dosing ml/min Est GFR ( Amer) ml/min Est GFR (Non-Af Amer) ml/min BUN/Creatinine Ratio (10-20) Glucose (70-99(Fasting)) mg/dl POC Glucose 229 H (70-99) mg/dl POC Glucose (other) (70-99) mg/dl Lactate Calcium (8.5-10.1) mg/dl POC Ioniz Calcium [place] (1.12-1.32) mmol/l Magnesium (1.7-2.4) mg/dl Total Bilirubin (0.2-1.0) mg/dl Direct Bilirubin (0-0.2) mg/dl AST (13-39) U/L ALT (7-52) U/L Alkaline Phosphatase (34-104) U/L Troponin I High Sens (0-20) pg/ml Total Protein (6.0-8.3) gm/dl Albumin (3.4-5.0) gm/dl Lipase (11-82) U/L Procalcitonin (0-0.5) ng/ml Urine Color Urine Appearance (Clear) Urine pH (4.5-7.5) Ur Specific [place] (1.000-1.030) Urine Protein (Negative) Urine Glucose (UA) (Negative) Urine Ketones (Negative) Urine Blood (Negative) Urine Nitrite (Negative) Urine Bilirubin (Negative) Urine Urobilinogen (Negative) Ur Leukocyte Esterase (Negative) Urine WBC (Auto) (0-5) /hpf Urine RBC (Auto) (0-4) /hpf U Hyaline Cast (Auto) (0-5) /lpf U Epithel Cells (Auto) (0-5) /lpf Urine Bacteria (Auto) (Negative) Urine Yeast SARS-CoV-2, RNA, NAAT (NEGATIVE) Administered Medications Sodium Bicarbonate 150 meq/ (Dextrose) 1,150 mls @ 80 mls/hr IV .[id number] SHAGUFTA Stop: 02/05/22 08:22 Last Admin: 02/04/22 18:12 Dose: 80 mls/hr Documented By: ROSI Ursodiol (Ursodiol 300 Mg Cap) 300 mg PO BIDM SHAGUFTA Stop: 03/06/22 16:59 Last Admin: 02/04/22 18:12 Dose: 300 mg Documented By: ROSI Discontinued Medications Dextrose (Dextrose 50% 50 Ml Syringe) 50 ml IV NOW ONE Stop: 02/04/22 11:49 Last Admin: 02/04/22 12:23 Dose: 50 ml Documented By: REID Sodium Chloride (Nss 1000ml) 1,000 mls @ 999 mls/hr IV .Q1H1M ONE Stop: 02/04/22 11:12 Last Infusion: 02/04/22 13:31 Dose: 0 mls/hr Documented By: Admin: 02/04/22 10:33 Dose: 999 mls/hr Documented By: KENDRA Sodium Chloride (Nss 1000ml) 1,000 mls @ 999 mls/hr IV .Q1H1M ONE Stop: 02/04/22 12:37 Last Infusion: 02/04/22 13:31 Dose: 0 mls/hr Documented By: Admin: 02/04/22 12:28 Dose: 999 mls/hr Documented By: REID Cefepime HCl (Maxipime) 2,000 mg in 20 mls @ 5 mls/min IV NOW STA; Protocol Stop: 02/04/22 11:40 Last Admin: 02/04/22 11:58 Dose: 5 mls/min Documented By: KENDRA Insulin Human Regular 10 units (/ Syringe) 10 mls @ 30 mls/min IV NOW ONE Stop: 02/04/22 12:16 Last Admin: 02/04/22 12:21 Dose: 30 mls/min Documented By: REID Co-signed By: TOSHA Daptomycin 425 mg/ Syringe 8.5 mls @ 4.25 mls/min IV NOW STA; Protocol Stop: 02/04/22 13:58 Last Admin: 02/04/22 14:16 Dose: 4.25 mls/min Documented By: KENDRA Calcium Gluconate 2,000 mg/ (Dextrose) 70 mls @ 240 mls/hr IV NOW ONE Stop: 02/04/22 17:32 Last Infusion: 02/04/22 18:14 Dose: 0 mls/hr Documented By: Admin: 02/04/22 17:33 Dose: 240 mls/hr Documented By: SOFIE Insulin Human Regular 5 units/ (Syringe) 5 mls @ 30 mls/min IV NOW ONE Stop: 02/04/22 18:01 Last Admin: 02/04/22 18:12 Dose: 30 mls/min Documented By: ROSI Co-signed By: SOFIE Ondansetron HCl (Ondansetron Inj 2 Mg/Ml 2 Ml Vial) 4 mg IV NOW STA Stop: 02/04/22 12:57 Last Admin: 02/04/22 13:02 Dose: Not Given Documented By: KENDRA Sodium Bicarbonate (Sodium Bicarb 8.4% Inj 50 Meq/50 Ml Syr) 50 meq IV NOW STA Stop: 02/04/22 11:49 Last Admin: 02/04/22 12:25 Dose: 50 meq Documented By: REID Imaging Data Radiologist's Impression: Chest X-Ray 02/04/22 10:13 XR chest 1V portable HISTORY: cough weakness COMPARISON: Chest 02/13/2021. FINDINGS: No pneumothorax. No pleural effusions. There are low lung volumes with a few bibasilar linear densities suggesting subsegmental atelectasis or scarring. The heart remains enlarged. No evidence for pulmonary edema. There are old, healed left-sided rib fractures. Partially visualized right shoulder prosthesis. Mildly tortuous thoracic aorta. There is a 1.7 cm irregular density within the right midlung zone. IMPRESSION: 1. Stable cardiomegaly. No evidence for pulmonary edema. 2. A new 1.7 cm irregular density within the periphery of the right midlung zone. This could represent a pulmonary nodule. Therefore, follow-up nonemergent chest CT is recommended for further evaluation. ACT 112: Positive. There are findings on this exam that require communication between the performing entity and the patient following Patient Test Result Information Act ([place] Act 112) guidelines. Electronically signed by: Alexander Mcgee M.D. 02/04/2022 10:53 AM Abdomen/Pelvis CT 02/04/22 11:49 CT OF THE ABDOMEN AND PELVIS WITHOUT CONTRAST CLINICAL HISTORY: Acute renal failure, concern urinary obstruction. COMPARISON STUDY: CT of the abdomen and pelvis February 09, 2021. MRI of the pelvis December 19, 2021. TECHNIQUE: Axial images of the abdomen and pelvis were obtained without IV contrast. Images were reviewed in the axial, sagittal, and coronal planes. Automated exposure control was utilized for the study. A dose lowering technique was utilized adhering to the principles of ALARA. FINDINGS: Linear and groundglass densities within the lower lungs favor atele ctasis. Cardiophrenic angle lymph nodes have slightly increased in size since CT of February 09, 2021. Index node on image 86 of 501 measures 1.8 x 1 cm. No pneumatosis, free air or portal venous gas is present. Liver is cirrhotic. Wall thickening of the common bile duct is unchanged from multiple prior exams. Pneumobilia is again noted. Non mass-like heterogeneity within portions of the liver similar to prior exams. Sensitivity for detection of hepatic lesions is diminished on this unenhanced exam but no well-defined mass is present. Splenomegaly has increased. Unenhanced images of the adrenal glands and pancreas are unremarkable with exception of pancreatic glandular atrophy. There is no hydronephrosis. Unenhanced images of the kidneys are unremarkable. There are no urinary calculi. Mildly enlarged retroperitoneal lymph nodes are similar to prior exam. Index aortocaval lymph node on image 260 measures 1.5 x 1.1 cm. Status post colectomy. 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 This contains multiple small bowel loops. No resultant bowel obstruction. Small amount of ascites is noted within the hernia sac as well as within the pelvis. A small right abdominal hernia contains a small bowel loops without bowel obstruction. [place] balloon within the bladder is noted. There is bladder wall thickening with adjacent stranding. Prostate is mildly enlarged. There is moderate stranding adjacent to the seminal vesicles and the prostate. No acute fracture is noted. T12, L2 and L4 compression fractures are noted. These were shown on MRI of February 09, 2021. IMPRESSION: 1. No urinary calculi or hydronephrosis. 2. Persistent bladder wall thickening with infiltration adjacent to the bladder, seminal vesicles and prostate. This could be correlated with urinalysis. 3. Cirrhosis. Increase in splenomegaly and nonspecific cardiophrenic angle lymphadenopathy. Trace ascites. 4. 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 No resultant bowel obstruction. ACT 112: Negative or not required by law. Electronically signed by: Edgardo Griggs M.D. 02/04/2022 1:41 PM Discharge Plan Visit Data Chief Complaint: Penis Pain Stated Complaint: INFECTION IN PENIS AND SCROTUM ED Provider: Quentin Quigley Discharge Problem: Sepsis, Acute renal failure, Cystitis, Acute hyperkalemia, Elevated bilirubin, Hyponatremia Patient Disposition: Admitted As Inpatient Discharge Instructions Interventions: ED Discharge Assessment Last Done: 02/04/22 15:57
--- NOTE | 2022-02-04 10:54 | XRay Report ---
XR chest 1V portable HISTORY: cough weakness COMPARISON: Chest 02/13/2021. FINDINGS: No pneumothorax. No pleural effusions. There are low lung volumes with a few bibasilar line ar densities suggesting subsegmental atelectasis or scarring. The heart remains enlarged. No evidence for pulmonary edema. There are old, healed left-sided rib fractures. Partially visualized right shou lder prosthesis. Mildly tortuous thoracic aorta. There is a 1.7 cm irregular density within the right midlung zone. IMPRESSION: 1. Stable cardiomegaly. No evidence for pulmonary edema. 2. A new 1.7 cm irregular density within the periphery of the right midlung zone. This could represen t a pulmonary nodule. Therefore, follow-up nonemergent chest CT is recommended for further evaluation . ACT 112: Positive. There are findings on this exam that require communication between the performing entity and the patient following Patient Test Result Information Act ([place] Act 112) guidelines. Electronically signed by: Alexander Mcgee M.D. 02/04/2022 10:53 AM
[2022-02-04 10:57] LABS: INR 1.3 (0.9-1.1); Prothrombin Time 14.1 Seconds (9.0-12.0)
[2022-02-04 11:07] LABS: Albumin Level 2.7 gm/dl (3.4-5.0); BUN Creatinine Ratio 25.8 (10-20); Bilirubin Direct 5.2 mg/dl (0-0.2); Calcium 7.7 mg/dl (8.5-10.1); Creatinine Clr Calc Pharmacy 23.7 ml/min; Est GFR (African American) 28.4 ml/min; Est GFR (Non-African American) 24.5 ml/min; Magnesium 1.9 mg/dl (1.7-2.4); Potassium 5.7 mmol/L (3.5-5.1); Total Protein 5.4 gm/dl (6.0-8.3)
[2022-02-04 11:11] LABS: Hematocrit (blood only) 26.6 % (40.1-51.0); Mean Corpuscular Hgb Conc 33.8 g/dL (32.0-36.0); Mean Corpuscular Volume 100.4 fL (80.0-100.0); Platelet Count 30 K/uL (130-400); RDW Coefficient of Variation 17.7 % (11.5-14.5); RDW Standard Deviation 64.8 fL (36.4-46.3); Red Blood Count 2.65 M/uL (4.63-6.08); White Blood Count 5.49 K/ul (4.8-10.8)
[2022-02-04 11:12] LABS: Basophils # (auto) 0.01 K/uL (0-0.2); Basophils % (auto) 0.2 %; Echinocytes 1+; Eosinophils # (auto) 0.03 K/uL (0-0.50); Eosinophils % (auto) 0.5 %; Immature Granulocytes # (auto) 0.06 K/uL (0.00-0.02); Immature Granulocytes % (auto) 1.1 %; Lymphocytes # (auto) 0.25 K/uL (1.2-3.4); Lymphocytes % (auto) 4.6 %; Monocytes # (auto) 0.52 K/uL (0.24-0.82); Monocytes % (auto) 9.5 %; Neutrophils # (auto) 4.62 K/uL (1.4-6.5); Neutrophils % (auto) 84.1 %; Ovalocytes 1+; Platelet Estimate Signific. Decreased (Normal)
[2022-02-04 11:13] LABS: Troponin I High Sensitivity 11.1 pg/ml (0-20)
[2022-02-04 11:34] LABS: Appearance Urine Turbid (Clear); Bacteria Urine Automated Negative (Negative); Blood Urine 3+ (Negative); Color Urine Dark Yellow; Epithelial Cell Urine Auto >30 /lpf (0-5); Glucose Urine UA Negative (Negative); Ketones Urine Trace (Negative); Leukocyte Esterase Urine 3+ (Negative); Nitrite Urine Positive (Negative); Protein Urine 2+ (Negative); Specific Gravity Urine 1.019 (1.000-1.030); Urobilinogen Urine Negative (Negative); WBC Urine Automated >30 /hpf (0-5)
[2022-02-04 11:37] LABS: Bilirubin Urine 3+ (Negative)
[2022-02-04] MEDS ORDERED: CEFEPIME 2,000 MG/20 ML VIAL IV STA (11:37)
[2022-02-04] MEDS ORDERED: INSULIN HUMAN REGULAR IV STA (11:48)
[2022-02-04] MEDS ORDERED: SODIUM BICARB 8.4% INJ 50 MEQ/50 ML SYR IV STA (11:48)
[2022-02-04] MEDS ORDERED: DEXTROSE 50% 50 ML SYRINGE IV ONE (11:48)
[2022-02-04 11:56] LABS: iSTAT Creatinine 2.5 mg/dl (0.6-1.3); iSTAT Hemoglobin 9.2 g/dl (14.0-18.0); iSTAT Ionized Calcium 1.04 mmol/l (1.12-1.32); iSTAT Potassium 5.9 mmol/L (3.3-5.0)
[2022-02-04] MEDS ORDERED: INSULIN HUMAN REGULAR PER UNIT 10 UNITS in SYRINGE 9.9 ML IV ONE (12:15)
[2022-02-04] MEDS ORDERED: ONDANSETRON INJ 2 MG/ML 2 ML VIAL IV STA (12:56)
--- NOTE | 2022-02-04 13:43 | CT Scan Report ---
CT OF THE ABDOMEN AND PELVIS WITHOUT CONTRAST CLINICAL HISTORY: Acute renal failure, concern urinary obstruction. COMPARISON STUDY: CT of the abdomen and pelvis February 09, 2021. MRI of the pelvis December 19, 2021. TECHNIQUE: Axial images of the abdomen and pelvis were obtained without IV contrast. Images were revi ewed in the axial, sagittal, and coronal planes. Automated exposure control was utilized for the gisell dy. A dose lowering technique was utilized adhering to the principles of ALARA. FINDINGS: Linear and groundglass densities within the lower lungs favor atelectasis. Cardiophrenic an gle lymph nodes have slightly increased in size since CT of February 09, 2021. Index node on image 86 of 501 measures 1.8 x 1 cm. No pneumatosis, free air or portal venous gas is present. Liver is cirrhoti c. Wall thickening of the common bile duct is unchanged from multiple prior exams. Pneumobilia is aga in noted. Non mass-like heterogeneity within portions of the liver similar to prior exams. Sensitivit y for detection of hepatic lesions is diminished on this unenhanced exam but no well-defined mass is present. Splenomegaly has increased. Unenhanced images of the adrenal glands and pancreas are unremar kable with exception of pancreatic glandular atrophy. There is no hydronephrosis. Unenhanced images o f the kidneys are unremarkable. There are no urinary calculi. Mildly enlarged retroperitoneal lymph n odes are similar to prior exam. Index aortocaval lymph node on image 260 measures 1.5 x 1.1 cm. Statu s post colectomy. 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 This contains multip le small bowel loops. No resultant bowel obstruction. Small amount of ascites is noted within the her alec sac as well as within the pelvis. A small right abdominal hernia contains a small bowel loops wit hout bowel obstruction. [place] balloon within the bladder is noted. There is bladder wall thickening w ith adjacent stranding. Prostate is mildly enlarged. There is moderate stranding adjacent to the semi nal vesicles and the prostate. No acute fracture is noted. T12, L2 and L4 compression fractures are n oted. These were shown on MRI of February 09, 2021. IMPRESSION: 1. No urinary calculi or hydronephrosis. 2. Persistent bladder wall thickening with infiltration adjacent to the bladder, seminal vesicles and prostate. This could be correlated with urinalysis. 3. Cirrhosis. Increase in splenomegaly and nonspecific cardiophrenic angle lymphadenopathy. Trace asc ites. 4. Status post colectomy with left lower quadrant ileostomy and large parastomal hernia containing mu ltiple small bowel loops. No resultant bowel obstruction. ACT 112: Negative or not required by law. Electronically signed by: Edgardo Griggs M.D. 02/04/2022 1:41 PM
[2022-02-04] MEDS ORDERED: DAPTOmycin 425 MG in SYRINGE 0 ML IV STA (13:57)
--- NOTE | 2022-02-04 14:54 | History & Physical Report ---
Date of Service February 04, 2022 Assessment & Plan (1) Acute renal failure: Plan: - Cr 2.36, GFR 25.6, severely reduced from baseline. Suspect secondary to infection/urinary obstruction, NSAID use, and possibly recent antibiotic use. - Patient hyperkalemic and hyponatremic with bicarb of 13. -Urinalysis with evidence of infection as well as with blood and protein, no casts - IVF. Correct electrolytes as described above. - Avoid nephrotoxins, renally dose medications as able. - Nephrology consult placed, appreciate their recommendations. -Maintain Dos Santos catheter which is draining -Hold home diclofenac, Augmentin (2) Hyperkalemia: Plan: - 5.7 on BMP on presentation, POC 5.9. EKG without peaked T waves. patient started on insulin with D50 and sodium bicarb in ED, as well as receiving 2L NS boluses. - Calcium gluconate ordered, patient also with hypocalcemia, Ca++ 7.0. - Repeat potassium later in the afternoon down to 5.3. - Repeat BMP in the morning -Give 1 L of isotonic sodium bicarbonate drip at 80 mils per hour overnight -Giving more insulin for hyperglycemia -Low potassium diet -Give 1 dose of Veltassa -Monitor on telemetry for arrhythmia (3) Recurrent UTI (urinary tract infection): Plan: - UA with nitrites, leuko esterase, WBCs. Urine and blood cultures ordered, pending. -With suspected abscesses in the penis as per recent Urology notes - Due to prior urine cultures which grew MRSA, patient started on cefepime and daptomycin in ED, will continue these while waiting for cultures to result. -Holding home fluconazole due to worsening liver failure -Follows with infectious disease at [place] and has an appointment for this Friday (4) Urethral stricture: Plan: - Patient identified to have a near complete occlusion at the mid to proximal urethra in September. He has had several chronic Dos Santos's in place, as well as been on several different antibiotics for chronic Krys infections. - Primarily sees Dr. Allison with [facility], as well as [facility]. There is induration at the proximal penile distal bulbar urethra. MRI performed at [facility] was read as multiloculated abscesses. Patient's case is being reviewed by urologist at [facility] that performs reconstructive surgery. It is indicated in most recent urology note that they are recommending patient have a biopsy of the area due to concerns for urethral cancer. -Continue catheter currently in place, emptying without complications. - Consult Urology for additional assistance, appreciate their recommendations. -With penile and scrotal swelling-question if related to infection? Also with erosion of the glans-his urologist is aware of this and suggest ways to offload pressure from the catheter on the penis -Tylenol as needed for pain (5) Type 2 diabetes mellitus: Plan: With hyperglycemia here after getting D50 in the ER as part of his treatment for hyperkalemia Start Accu-Cheks AC at bedtime, NovoLog sliding scale Give regular insulin 5 units again now for persistent hyperkalemia and for hyp erglycemia Check hemoglobin A1c in the morning-last was 6.5% 3 months ago Not on medications at home (6) Hyponatremia: Plan: - 127 on BMP, POC 130. Suspect due to minimal/no PO intake over the past 5 days as well as acute kidney injury. - IVF ordered as well as bicarb gtt. -Follow BMP (7) Primary sclerosing cholangitis: Plan: - Longstanding diagnosis, with resulting cirrhosis. Follows with [facility] in [place]. Routine ERCPs q3 months, however has not had one since May 2021. Next due for this at the end of summer. - T bili elevated at 7.0, D bili 5.2. Alk phos at baseline, AST and ALT WNL. -Has been on fluconazole for approximately 8 weeks which may be contributing - CT A/P showed unchanged CBD wall thickening, unchanged cirrhosis of liver, pneumobilia noted. [id number] heterogeneity within portions lumbar are similar to prior exams. No well-defined masses present. Splenomegaly is increased. - We will check ammonia level with p.m. BMP due to complaints of fatigue. - GI consult placed, appreciate their recommendations. -Okay to use Tylenol but no more than 2000 mg daily -Follow LFTs, INR, CBC in the morning -Statin on hold -Continue ursodiol (8) Thrombocytopenia: Plan: - PLTs 30k today, baseline ~50-70. - Suspect they are low from worsening splenomegaly, cirrhosis. - Monitor on AM labs. -Hold any blood thinners to include aspirin, and his home diclofenac (9) Anemia: Plan: - 9.0, macrocytic Near pt's baseline. Has an upcoming iron transfusion. Takes daily folic acid - No evidence of acute bleeding. Will monitor on daily CBC. -Check B12, folate, iron studies in the morning (10) CAD (coronary artery disease): Plan: Holding home aspirin due to thrombocytopenia, hold home statin due to LFT elevation Okay to continue metoprolol with hold parameters (11) Abnormal chest x-ray: Plan: A new 1.7 cm irregular density within the periphery of the right midlung zone. This could represent a pulmonary nodule. Therefore, follow-up nonemergent chest CT is recommended for further evaluation. Follow-up as outpatient Made referral to pulmonary nodule clinic (12) Cirrhosis: Plan: Secondary to PSC as above Plan - Admitted to PCU. - SCDs for VTE ppx. Would not use chemical means due to thrombocytopenia - Full Code. History of Present Illness Chief Complaint: generalized fatigue and weakness x5 days Primary Care Provider: Tom Bucio MD Jordy Tesfaye is an 81-year-old male with past medical history significant for ulcerative colitis s/p ileostomy, primary sclerosing cholangitis, CAD, and urinary stricture with extensive urological evaluations and procedures who presents today from home feeling generally unwell. 5 days ago, on 01/31 patient had a urology appointment at [facility]. At this time, his catheter was replaced, and procedure to visualize the urethra was done, which revealed a previously known urethral laceration had become more shallow, however extended in length. He also had worsening swelling of his penis then, which is currently in the process of being evaluated for urethral cancer. Since the procedure, patient has felt generally unwell. He is very fatigued, has no appetite, and feels generally achy, with some increase in RUQ pain. He denies fever chills, night sweats, chest pain, shortness of breath, no pain with urination. He has b een on several antibiotics for extended periods of time since the beginning of November. Seems that he was on fluconazole as well as Augmentin for about 6 weeks from the beginning of November until around December 25, at which time he was taken off both of these. However, a UA was collected on 01/16, which once again grew yeast. Therefore, he had been placed back on fluconazole and has been taking this for approximately 1 week now. He had also been placed on Macrodantin intermittently at some point, presumably after the fluconazole had been stopped, however he and his are unsure of the exact timeframe. In ED, he is mildly hypotensive, otherwise VS wnl. Labs significant for renal failure with BUN of 60, CR 2.28 (baseline 0.70.8), bicarb 13, potassium 5.7, sodium 127, calcium 7.0, ionized 1.04. T bili 7.0, direct bili 5.2, alk phos 125. WBC within normal limits, however PCT 2.77, platelet count 30, Hgb 9.0. UA with nitrites, leuk esterase, and WBCs, however no bacteria or yeast. COVID- negative. CT A/P showed bladder wall thickening with infiltration adjacent to the bladder, seminal vesicles, prostate, as well as cirrhosis and increasing splenomegaly with trace ascites, LLQ ileostomy and large parastomal hernia with multiple small loops however no evidence of obstruction. Allergies Allergy/AdvReac Type Severity Reaction Status Date / Time Egg Derived Allergy Intermediate RASH WITH Verified 02/04/22 15:01 LARGE QUANTITIES metformin Allergy Intermediate GI ISSUES Verified 02/04/22 15:01 pollen extracts Allergy Intermediate ITCHY Verified 02/04/22 15:01 EYES, SNEEZING, CONGESTION codeine AdvReac Intermediate N/V, Verified 02/04/22 15:01 HYPOTENSTION fentanyl AdvReac Intermediate EXTREME Verified 02/04/22 15:01 NAUSEA; BP DROPS meperidine AdvReac Intermediate N/V, Verified 02/04/22 15:01 HYPOTENSTION morphine AdvReac Intermediate N/V, Verified 02/04/22 15:01 HYPOTENSTION Flu Virus Vaccine Allergy Intermediate AVOIDS DUE Uncoded 02/04/22 15:01 TO EGG ALLERGY NARCOTICS AdvReac Intermediate N/V, Uncoded 02/04/22 15:01 HYPOTENSTION Home Medications Medication Instructions Recorded Confirmed Type alendronate 70 mg tablet (Fosamax) 70 mg PO WK 09/29/18 02/04/22 History allopurinol 300 mg tablet 300 mg PO QAM 09/29/18 02/04/22 History finasteride 5 mg tablet (Proscar) 5 mg PO QAM 09/29/18 02/04/22 History magnesium oxide 400 mg PO QAM 09/29/18 02/04/22 History ursodiol 300 mg capsule 300 mg PO BIDM 09/29/18 02/04/22 History folic acid 1 mg tablet 1 mg PO QAM 02/02/19 02/04/22 History cranberry 500 mg capsule 500 mg PO QAM 04/02/19 02/04/22 History meclizine 25 mg tablet 25 mg PO TID PRN Vertigo 04/02/19 02/04/22 History (Medi-Meclizine) loratadine 10 mg tablet (Claritin) 10 mg PO QAM PRN Congestion 06/24/19 02/04/22 History calcium carbonate 500 mg-vitamin 1 tab PO QAM 02/09/21 02/04/22 History D3 5 mcg (200 unit) tablet (Calcium 500 + D) misoprostol 100 mcg tablet 200 mcg PO QAM 02/09/21 02/04/22 History (Cytotec) omega 2-occ-wuu-fish oil 1,000 mg 1 cap PO QID 02/09/21 02/04/22 History (120 mg-180 mg) capsule (Fish Oil) vitamin A-vitamin C-vit E-min 1 tab PO BID 02/09/21 02/04/22 History tablet (Ocutabs) Saccharomyces boulardii 250 mg 250 mg PO DAILY #30 caps 02/13/21 02/04/22 Rx capsule (Florastor) metoprolol tartrate 25 mg tablet 75 mg PO QPM #90 tabs 02/13/21 02/04/22 Rx alfuzosin 10 mg tablet,extended 10 mg PO DAILY 04/30/21 02/04/22 History release 24 hr aspirin 81 mg tablet,delayed 81 mg PO DAILY 04/30/21 02/04/22 History release diclofenac sodium 75 mg 75 mg PO DAILY 04/30/21 02/04/22 History tablet,delayed release metoprolol tartrate 100 mg tablet 50 mg PO QAM 04/30/21 02/04/22 History (Lopressor) omeprazole 20 mg capsule,delayed 20 mg PO DAILY 04/30/21 02/04/22 History release rosuvastatin 10 mg tablet 10 mg PO DAILY 04/30/21 02/04/22 History amoxicillin 500 mg-potassium 1 tab PO BID 6 days #20 tabs 12/14/21 02/04/22 Rx clavulanate 125 mg tablet (Augmentin) fluconazole 100 mg tablet 200 mg PO DAILY 10 days #20 tabs 01/10/22 02/04/22 Rx (Diflucan) melatonin 3 mg tablet 3 mg PO HS 02/04/22 02/04/22 History Past Med/Surg History Medical History Abscess of right shoulder (~09/2020) Benign prostatic hyperplasia with urinary obstruction CAD (coronary artery disease) STENT X 1 (2001) AT [facility] Enlarged prostate High cholesterol History of IBS History of kidney stones History of myocardial infarction STENT X 1 (2001) S/P B/L TKA Stable; Has not had to use NTG since stent placement HTN (hypertension) Hx of basal cell carcinoma Hx of deep venous thrombosis LLE "A LONG TIME AGO" Hx of ulcerative colitis S/p colectomy- ileostomy 1990 and 1994 Hx of vertigo Ileostomy in place Left lower lobe pneumonia 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 Aneurysm present since UT in 2001 per cardio Macular degeneration Neurogenic bladder NO DOS SANTOS CATHETER 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 PVCs (premature ventricular contractions) Asymptomatic per patient Right tibial fracture Right tibial fracture Sciatica TIA (transient ischemic attack) TIA vs complex migraine February 2019 Type 2 diabetes mellitus Surgical History History of anesthesia reaction SLOW TO WAKE, BREATHING ISSUES, NAUSEA AND VOMITING History of appendectomy History of arthroplasty of right shoulder Right TSA= 05/24/16= Grade 1 view, MAC#4 at [facility] History of cholecystectomy History of colonoscopy History of cystoscopy History of ERCP MULTIPLE History of exploratory laparotomy X2 "COMMON DUCT RECONSTRUCTION" History of hand surgery RT/LEFT THUMBS History of lumbar laminectomy History of total bilateral knee replacement Hx of bilateral cataract extraction Family History Father Myocardial infarction Family/Other Hypertension Nephrolithiasis Sister FH: ovarian cancer Other Family history of breast cancer in mother Social History Smoking Status: Never smoker Second Hand Exposure: No; Hx Alcohol Use: Yes Alcohol type: wine Hx Substance Use: No Preferred Language: Wallisian Communication Ability: Effective Mercury Cell Cleaner Required: No Beliefs That Will Affect Care: None marital status: Current Living Situation: Spouse Current Living Situation Comment: Currently in [facility] post fall and leg fracture 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 Feels Safe at Home: Yes Safety Concerns: Feels Safe At This Time Assistive Devices: None and Walker Review of Systems Review of Systems: Constitutional: Weak, fatigued, with myalgias and anorexia x5 days Eyes: No diplopia, no worsening or blurred vision ENT: normal hearing, no trouble swallowing Respiratory: No cough, sputum, dyspnea at rest or on exertion Cardiovascular: No chest pain, tightness or palpitations Abdomen: No pain, nausea, vomiting, diarrhea or constipation : Penile and scrotal swelling, pain, as well as discharge for several days Musculoskeletal: No joint pain, calf pain, swelling Neurologic: No weakness, numbness/tingling, or balance problems Psychiatric: No anxiety or depression Skin: No rash or itch Physical Exam Physical Exam: General: awake, alert, no apparent distress Head: Normocephalic, atraumatic ENT: PERRL, EOMI, no pharyngeal exudate, mucous membranes moist Chest: Clear to auscultation, on room air, no adventitious breath sounds Cardiac: Regular rate and rhythm, no murmur, no JVD, normal peripheral pulses, good capillary refill Abdominal: NABS x 4 quadrants, soft, nontender to palpation, no rebound, guarding or tenderness : Pain on scrotal swelling, tenderness with purulent discharge noted around the catheter Extremities: Bilateral lower extremity erythema consistent with patient baseline; otherwise normal inspection, no peripheral edema or erythema, calfs nontender to palpation Psych: Normal mood and affect Neuro: AAO x 3, strength intact bilaterally and rated 5/5, no motor deficits, speech is clear, no peripheral sensory deficits Skin: no rash or erythema Results & Data Results & Data ([facility]) Vital Signs (Past 12 Hours) Vital Signs Temp Pulse Pulse Resp BP BP Pulse Ox 02/04/22 14:00 36.5 C 74 20 106/58 L 96 02/04/22 12:31 81 20 103/49 L 93 02/04/22 09:27 36.0 C L 73 22 92/50 L 93 O2 Del Method 02/04/22 14:00 Room Air 02/04/22 12:31 Room Air 02/04/22 09:27 Room Air Laboratory Results Abnormal lab results 02/04/22 02/04/22 02/04/22 Range/Units 10:28 10:28 10:28 RBC 2.65 L (4.63-6.08) M/uL Hgb 9.0 L (14.0-18.0) g/dl POC Hgb (14.0-18.0) g/dl Hct 26.6 L (40.1-51.0) % POC Hct (42-52) % MCV 100.4 H (80.0-100.0) fL RDW Std Deviation 64.8 H (36.4-46.3) fL RDW Coeff of Chani 17.7 H (11.5-14.5) % Plt Count 30 L (130-400) K/uL Lymph # (Auto) 0.25 L (1.2-3.4) K/uL Immature Gran # (Auto) 0.06 H (0.00-0.02) K/uL Platelet Estimate Signific. Decreased L (Normal) PT 14.1 H (9.0-12.0) Seconds INR 1.3 H (0.9-1.1) POC Sodium (135-144) mmol/L Sodium 127 L (136-145) mmol/L POC Potassium (3.3-5.0) mmol/L Potassium 5.7 H (3.5-5.1) mmol/L Carbon Dioxide 13 L (21-32) mmol/L POC Total CO2 (24-31) mmol/L POC Anion Gap (16-25) mmol/L POC BUN (7-18) mg/dl BUN 61 H (6-23) mg/dl Creatinine 2.36 H (0.6-1.4) mg/dl POC Creatinine (0.6-1.3) mg/dl BUN/Creatinine Ratio 25.8 H (10-20) Glucose 169 H (70-99(Fasting)) mg/dl POC Glucose (70-99) mg/dl POC Glucose (other) (70-99) mg/dl Calcium 7.7 L (8.5-10.1) mg/dl POC Ioniz Calcium Ventura (1.12-1.32) mmol/l Total Bilirubin 7.0 H (0.2-1.0) mg/dl Direct Bilirubin 5.2 H (0-0.2) mg/dl Alkaline Phosphatase 125 H (34-104) U/L Total Protein 5.4 L (6.0-8.3) gm/dl Albumin 2.7 L (3.4-5.0) gm/dl Procalcitonin (0-0.5) ng/ml Urine Appearance (Clear) Urine Protein (Negative) Urine Ketones (Negative) Urine Blood (Negative) Urine Nitrite (Negative) Urine Bilirubin (Negative) Ur Leukocyte Esterase (Negative) Urine WBC (Auto) (0-5) /hpf Urine RBC (Auto) (0-4) /hpf U Epithel Cells (Auto) (0-5) /lpf 02/04/22 02/04/22 02/04/22 Range/Units 10:28 10:39 11:41 RBC (4.63-6.08) M/uL Hgb (14.0-18.0) g/dl POC Hgb 9.2 L (14.0-18.0) g/dl Hct (40.1-51.0) % POC Hct 27 L (42-52) % MCV (80.0-100.0) fL RDW Std Deviation (36.4-46.3) fL RDW Coeff of Chani (11.5-14.5) % Plt Count (130-400) K/uL Lymph # (Auto) (1.2-3.4) K/uL Immature Gran # (Auto) (0.00-0.02) K/uL Platelet Estimate (Normal) PT (9.0-12.0) Seconds INR (0.9-1.1) POC Sodium 130 L (135-144) mmol/L Sodium (136-145) mmol/L POC Potassium 5.9 H (3.3-5.0) mmol/L Potassium (3.5-5.1) mmol/L Carbon Dioxide (21-32) mmol/L POC Total CO2 13 L (24-31) mmol/L POC Anion Gap 15.0 L (16-25) mmol/L POC BUN 49 H (7-18) mg/dl BUN (6-23) mg/dl Creatinine (0.6-1.4) mg/dl POC Creatinine 2.5 H (0.6-1.3) mg/dl BUN/Creatinine Ratio (10-20) Glucose (70-99(Fasting)) mg/dl POC Glucose (70-99) mg/dl POC Glucose (other) 180 H (70-99) mg/dl Calcium (8.5-10.1) mg/dl POC Ioniz Calcium Ventura 1.04 L (1.12-1.32) mmol/l Total Bilirubin (0.2-1.0) mg/dl Direct Bilirubin (0-0.2) mg/dl Alkaline Phosphatase (34-104) U/L Total Protein (6.0-8.3) gm/dl Albumin (3.4-5.0) gm/dl Procalcitonin 2.77 H (0-0.5) ng/ml Urine Appearance Turbid A (Clear) Urine Protein 2+ H (Negative) Urine Ketones Trace H (Negative) Urine Blood 3+ H (Negative) Urine Nitrite Positive A (Negative) Urine Bilirubin 3+ H (Negative) Ur Leukocyte Esterase 3+ H (Negative) Urine WBC (Auto) >30 H (0-5) /hpf Urine RBC (Auto) 5-10 H (0-4) /hpf U Epithel Cells (Auto) >30 H (0-5) /lpf 02/04/22 02/04/22 Range/Units 13:05 14:49 RBC (4.63-6.08) M/uL Hgb (14.0-18.0) g/dl POC Hgb (14.0-18.0) g/dl Hct (40.1-51.0) % POC Hct (42-52) % MCV (80.0-100.0) fL RDW Std Deviation (36.4-46.3) fL RDW Coeff of Chani (11.5-14.5) % Plt Count (130-400) K/uL Lymph # (Auto) (1.2-3.4) K/uL Immature Gran # (Auto) (0.00-0.02) K/uL Platelet Estimate (Normal) PT (9.0-12.0) Seconds INR (0.9-1.1) POC Sodium (135-144) mmol/L Sodium 127 L (136-145) mmol/L POC Potassium (3.3-5.0) mmol/L Potassium 5.3 H (3.5-5.1) mmol/L Carbon Dioxide 14 L (21-32) mmol/L POC Total CO2 (24-31) mmol/L POC Anion Gap (16-25) mmol/L POC BUN (7-18) mg/dl BUN 60 H (6-23) mg/dl Creatinine 2.28 H (0.6-1.4) mg/dl POC Creatinine (0.6-1.3) mg/dl BUN/Creatinine Ratio 26.3 H (10-20) Glucose 219 H (70-99(Fasting)) mg/dl POC Glucose 229 H (70-99) mg/dl POC Glucose (other) (70-99) mg/dl Calcium 7.0 L (8.5-10.1) mg/dl POC Ioniz Calcium Ventura (1.12-1.32) mmol/l Total Bilirubin (0.2-1.0) mg/dl Direct Bilirubin (0-0.2) mg/dl Alkaline Phosphatase (34-104) U/L Total Protein (6.0-8.3) gm/dl Albumin (3.4-5.0) gm/dl Procalcitonin (0-0.5) ng/ml Urine Appearance (Clear) Urine Protein (Negative) Urine Ketones (Negative) Urine Blood (Negative) Urine Nitrite (Negative) Urine Bilirubin (Negative) Ur Leukocyte Esterase (Negative) Urine WBC (Auto) (0-5) /hpf Urine RBC (Auto) (0-4) /hpf U Epithel Cells (Auto) (0-5) /lpf Diagnostic Findings Chest X-Ray 02/04/22 10:13 XR chest 1V portable HISTORY: cough weakness COMPARISON: Chest 02/13/2021. FINDINGS: No pneumothorax. No pleural effusions. There are low lung volumes with a few bibasilar linear densities suggesting subsegmental atelectasis or scarring. The heart remains enlarged. No evidence for pulmonary edema. There are old, healed left-sided rib fractures. Partially visualized right shoulder prosthesis. Mildly tortuous thoracic aorta. There is a 1.7 cm irregular density within the right midlung zone. IMPRESSION: 1. Stable cardiomegaly. No evidence for pulmonary edema. 2. A new 1.7 cm irregular density within the periphery of the right midlung zone. This could represent a pulmonary nodule. Therefore, follow-up nonemergent chest CT is recommended for further evaluation. ACT 112: Positive. There are findings on this exam that require communication between the performing entity and the patient following Patient Test Result Information Act ([place] Act 112) guidelines. Electronically signed by: Alexander Mcgee M.D. 02/04/2022 10:53 AM Abdomen/Pelvis CT 02/04/22 11:49 CT OF THE ABDOMEN AND PELVIS WITHOUT CONTRAST CLINICAL HISTORY: Acute renal failure, concern urinary obstruction. COMPARISON STUDY: CT of the abdomen and pelvis February 09, 2021. MRI of the pelvis December 19, 2021. TECHNIQUE: Axial images of the abdomen and pelvis were obtained without IV contrast. Images were reviewed in the axial, sagittal, and coronal planes. Automated exposure control was utilized for the study. A dose lowering technique was utilized adhering to the principles of ALARA. FINDINGS: Linear and groundglass densities within the lower lungs favor atelectasis. Cardiophrenic angle lymph nodes have slightly increased in size since CT of February 09, 2021. Index node on image 86 of 501 measures 1.8 x 1 cm. No pneumatosis, free air or portal venous gas is present. Liver is cirrhotic. Wall thickening of the common bile duct is unchanged from multiple prior exams. Pneumobilia is again noted. Non mass-like heterogeneity within portions of the liver similar to prior exams. Sensitivity for detection of hepatic lesions is diminished on this unenhanced exam but no well-defined mass is present. Splenomegaly has increased. Unenhanced images of the adrenal glands and pancreas are unremarkable with exception of pancreatic glandular atrophy. There is no hydronephrosis. Unenhanced images of the kidneys are unremarkable. There are no urinary calculi. Mildly enlarged retroperitoneal lymph nodes are similar to prior exam. Index aortocaval lymph node on image 260 measures 1.5 x 1.1 cm. Status post colectomy. 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 This contains multiple small bowel loops. No resultant bowel obstruction. Small amount of ascites is noted within the hernia sac as well as within the pelvis. A small right abdominal hernia contains a small bowel loops without bowel obstruction. Dos Santos balloon within the bladder is noted. There is bladder wall thickening with adjacent stranding. Prostate is mildly enlarged. There is moderate stranding adjacent to the seminal vesicles and the prostate. No acute fracture is noted. T12, L2 and L4 compression fractures are noted. These were shown on MRI of February 09, 2021. IMPRESSION: 1. No urinary calculi or hydronephrosis. 2. Persistent bladder wall thickening with infiltration adjacent to the bladder, seminal vesicles and prostate. This could be correlated with urinalysis. 3. Cirrhosis. Increase in splenomegaly and nonspecific cardiophrenic angle lymphadenopathy. Trace ascites. 4. 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 No resultant bowel obstruction. ACT 112: Negative or not required by law. Electronically signed by: Edgardo Griggs M.D. 02/04/2022 1:41 PM Code Status & VTE Plan Code Status Sinus rhythm with 1st degree A-V block with Premature atrial complexes Low voltage QRS Cannot rule out Anterior infarct (cited on or before 04-FEB-2022) Abnormal ECG When compared with ECG of 09-FEB-2021 13:42, Premature atrial complexes are now Present VTE Prophylaxis Plan VTE Prophylaxis will be ordered: Yes Supervising Physician Co-Signing Physician Notes PA Supervision Note: I personally saw and examined the patient. I verified all [place] points and agree with CLYDE Braden with the following exceptions and/or additions: S-Pt presents with generalized weakness, fatigue for several days after replacement of Dos Santos catheter. Found to have acute kidney injury and hyperkalemia as well as complicated UTI History and ROS reviewed O- Vitals reviewed Gen: AAOx3, NAD HEENT: Anicteric sclerae, EOMI CV: RRR no mgr nl S1S2 Pulm: CTAB no wcr Abd: +BS soft NT ND no masses or hernias, colostomy bag in place, penis with edema, small erosion on the glans with brown discharge coming out around the Dos Santos catheter, penis and scrotum mildly erythematous, Dos Santos catheter in place draining cloudy yellow urine Ext: No edema, 2+ DP pulses Skin: No rashes, warm/dry Neuro: Full strength throughout Labs, Rads, and ECG reviewed A/C-58-zlov-old male here with weakness, acute kidney injury, hyperkalemia, metabolic acidosis, hyponatremia, complicated UTI, and worsening LFTs Plan outlined as above Start broad-spectrum antibiotics, continue fluids and give isotonic sodium bicarbonate drip, treat hyperkalemia with insulin, [place], low potassium diet, IV fluid hydration Appreciate nephrology and urology consultations Will also consult GI given worsening LFTs-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 and also could be worsened by recent long-term fluconazole use which has been discontinued PG Care Time/CCT Total # of Minutes Spent Total Time Spent with Patient: Total time spent is greater than 50% in coordination of care (as documented) at patient's floor/unit and/or counseling patient: Coding Level of Care Code 17000 Initial Inpt Care Lvl 3 Diagnoses Acute renal failure N17.9 Hyperkalemia E87.5 Recurrent UTI (urinary tract infection) N39.0 Urethral stricture N35.919 Type 2 diabetes mellitus E11.65 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
[2022-02-04 15:17] LABS: BUN Creatinine Ratio 26.3 (10-20); Creatinine Clr Calc Pharmacy 24.5 ml/min; Est GFR (African American) 29.7 ml/min; Est GFR (Non-African American) 25.6 ml/min; Potassium 5.3 mmol/L (3.5-5.1)
[2022-02-04] MEDS ORDERED: POLYETHYLENE (MIRALAX) 17 GM PACK PO PRN (16:27)
[2022-02-04] MEDS ORDERED: LORATADINE 10 MG TAB PO PRN (16:27)
[2022-02-04] MEDS ORDERED: MECLIZINE HCL 25 MG TAB PO PRN (16:27)
[2022-02-04] MEDS ORDERED: STAT IV STA ×2 (17:05→17:38)
[2022-02-04] MEDS ORDERED: CALCIUM GLUCONATE 10% 2,000 MG in DEXTROSE 5% 50 ML IV ONE (17:15)
[2022-02-04] MEDS ORDERED: LACTATED RINGER'S 1,000 ML IV SCH (17:30)
[2022-02-04] MEDS ORDERED: INSULIN HUMAN REGULAR PER UNIT 5 UNITS in SYRINGE 0 ML IV STA (17:34)
[2022-02-04] MEDS ORDERED: INSULIN HUMAN REGULAR PER UNIT 5 UNITS in SYRINGE 4.95 ML IV ONE (18:00)
[2022-02-04] MEDS ORDERED: SODIUM BICARBONATE 8.4% 150 MEQ in DEXTROSE 5% 1,000 ML IV SCH (18:00)
--- NOTE | 2022-02-04 18:07 | Electrocardiogram Report ---
Test Reason : Blood Pressure : / mmHG Vent. Rate : 074 BPM Atrial Rate : 074 BPM P-R Int : 228 ms QRS Dur : 098 ms QT Int : 428 ms P-R-T Axes : 042 -05 044 degrees QTc Int : 475 ms Sinus rhythm with 1st degree A-V block with Premature atrial complexes Low voltage QRS Cannot rule out Anterior infarct (cited on or before 04-FEB-2022) Incomplete right bundle branch block Abnormal ECG When compared with ECG of 09-FEB-2021 13:42, Premature atrial complexes are now Present Confirmed by Candelario Estrella ([id number]) on 02/04/2022 6:07:23 PM Referred By: REFERRED SELF Confirmed By:Raul Estrella
[2022-02-04] MEDS: ursodioL 300 MG CAP PO SCH (18:12)
[2022-02-04] MEDS ORDERED: CARBOHYDRATES FOR HYPOGLYCEMIA PO PRN (18:15)
[2022-02-04] MEDS ORDERED: GLUCOSE 10 TAB/TUBE PO PRN (18:15)
[2022-02-04] MEDS ORDERED: GLUCOSE 40% GEL 15 GM TUBE PO PRN (18:15)
[2022-02-04] MEDS ORDERED: GLUCAGON FOR INJ 1 MG VIAL SQ PRN (18:15)
[2022-02-04] MEDS ORDERED: DEXTROSE 50% 50 ML SYRINGE IV PRN (18:15)
--- NOTE | 2022-02-04 19:10 | Urology Consultation ---
Date of Consultation February 04, 2022 Assessment & Plan (1) Sepsis: Patient has been admitted by the hospitalist service. Recommend proceeding as follows: Continue resuscitation with IV fluids as you are doing Continue broad-spectrum antibiotics. The patient is receiving daptomycin and cefepime Blood and urine cultures have been obtained. We will follow for the results of these at which time his antibiotics can be tailored based on these results Pain Dos Santos catheter with no plans to remove as this was recently exchanged by his urology team at [facility] on 01/31/2022 according to the most recent note from patient's urology team at [facility] consideration was beginning to obtaining an ID consult. It may be prudent to do so this admission. (2) UTI (urinary tract infection): History of Present Illness Reason for Consultation: History of urethral stricture Urinary tract infection Attending Physician: Petra Martines MD History of Present Illness This is an 81-year-old male with an underlying history of urethral stricture. The patient follows locally with Dr. Allison of [facility] urology as well as urology at [facility]. Patient has a history of a urethral stricture and he most recently saw his urology team at [facility] on 01/31/2022. Prior to this visit the patient did undergo a pericatheter urethrogram that showed extravasation of contrast into the periurethral tissues. Therefore the patient had a Dos Santos catheter maintained in place. During his most recent visit at [facility] was noted to have some erosion of the glans from the catheter that was bothering him and he was given antibiotic ointment. Patient was noted to have edema of his penile and scrotal tissue. He underwent an MRI at which patient was thought to have a multiloculated abscess of the paravalvular periurethral tissues. He underwent an additional pericatheter urethrogram he was again noted to have some extravasation of contrast into the periurethral tissue. It was felt that the patient should have the area of extravasation biopsied as there is concern the patient may have a urethral cancer and this has yet to be arranged. Patient also underwent a Dos Santos catheter exchange where his catheter was upsized over a wire to a 16 Taj[place] Dos Santos catheter. Over the past 24 to 40 hours the patient says that he is generally feeling unwell. He denies any nausea or vomiting but notes decreased appetite. He denies any fevers, shakes, or chills. He denies any back or flank pain. He denies any cough or shortness of breath. He denies any blood from his Dos Santos catheter. His added that the patient recently completed a course of fluconazole as well as Augmentin. Because of his feeling of general malaise he presented to the emergency department. Today in the emergency department patient had labs and imaging which I independently reviewed. Chest x-ray did not show any evidence of pulmonary edema. There is concerned that patient may have a pulmonary nodule in the right mid lung. CT scan of the abdomen or pelvis showed no evidence of kidney stones. There is some bladder wall thickening infiltration adjacent to the bladder, seminal vesicles and prostate. Labs include a CBC were white blood cell count is normal. Hemoglobin and hematocrit are 9.0 and 26.6. Platelet count is 30,000. His INR is 1.3. Chemistry profile showed sodium was 127 with a potassium of 5.3. His BUN and creatinine are 60 and 2.2. This level of creati nine was a significant increase from prior values. Urinalysis showed turbid urine with 3+ leukocyte Estrace and was positive for nitrites. There were also greater than 30 white blood cells per high-power field with no bacteria and no yeast. A COVID test was noted be negative. At the time of my interview the patient was noted to be sitting in bed and he was in no distress. Allergies Allergy/AdvReac Type Severity Reaction Status Date / Time Egg Derived Allergy Intermediate RASH WITH Verified 02/04/22 15:01 LARGE QUANTITIES metformin Allergy Intermediate GI ISSUES Verified 02/04/22 15:01 pollen extracts Allergy Intermediate ITCHY Verified 02/04/22 15:01 EYES, SNEEZING, CONGESTION codeine AdvReac Intermediate N/V, Verified 02/04/22 15:01 HYPOTENSTION fentanyl AdvReac Intermediate EXTREME Verified 02/04/22 15:01 NAUSEA; BP DROPS meperidine AdvReac Intermediate N/V, Verified 02/04/22 15:01 HYPOTENSTION morphine AdvReac Intermediate N/V, Verified 02/04/22 15:01 HYPOTENSTION Flu Virus Vaccine Allergy Intermediate AVOIDS DUE Uncoded 02/04/22 15:01 TO EGG ALLERGY NARCOTICS AdvReac Intermediate N/V, Uncoded 02/04/22 15:01 HYPOTENSTION Home Medications Medication Instructions Recorded Confirmed Type alendronate 70 mg tablet (Fosamax) 70 mg PO WK 09/29/18 02/04/22 History allopurinol 300 mg tablet 300 mg PO QAM 09/29/18 02/04/22 History finasteride 5 mg tablet (Proscar) 5 mg PO QAM 09/29/18 02/04/22 History magnesium oxide 400 mg PO QAM 09/29/18 02/04/22 History ursodiol 300 mg capsule 300 mg PO BIDM 09/29/18 02/04/22 History folic acid 1 mg tablet 1 mg PO QAM 02/02/19 02/04/22 History cranberry 500 mg capsule 500 mg PO QAM 04/02/19 02/04/22 History meclizine 25 mg tablet 25 mg PO TID PRN Vertigo 04/02/19 02/04/22 History (Medi-Meclizine) loratadine 10 mg tablet (Claritin) 10 mg PO QAM PRN Congestion 06/24/19 02/04/22 History calcium carbonate 500 mg-vitamin 1 tab PO QAM 02/09/21 02/04/22 History D3 5 mcg (200 unit) tablet (Calcium 500 + D) misoprostol 100 mcg tablet 200 mcg PO QAM 02/09/21 02/04/22 History (Cytotec) omega 8-qia-uqw-fish oil 1,000 mg 1 cap PO QID 02/09/21 02/04/22 History (120 mg-180 mg) capsule (Fish Oil) vitamin A-vitamin C-vit E-min 1 tab PO BID 02/09/21 02/04/22 History tablet (Ocutabs) Saccharomyces boulardii 250 mg 250 mg PO DAILY #30 caps 02/13/21 02/04/22 Rx capsule (Florastor) metoprolol tartrate 25 mg tablet 75 mg PO QPM #90 tabs 02/13/21 02/04/22 Rx alfuzosin 10 mg tablet,extended 10 mg PO DAILY 04/30/21 02/04/22 History release 24 hr aspirin 81 mg tablet,delayed 81 mg PO DAILY 04/30/21 02/04/22 History release diclofenac sodium 75 mg 75 mg PO DAILY 04/30/21 02/04/22 History tablet,delayed release metoprolol tartrate 100 mg tablet 50 mg PO QAM 10/25/21 08/01/22 History (Lopressor) omeprazole 20 mg capsule,delayed 20 mg PO DAILY 04/30/21 02/04/22 History release rosuvastatin 10 mg tablet 10 mg PO DAILY 04/30/21 02/04/22 History amoxicillin 500 mg-potassium 1 tab PO BID 6 days #20 tabs 12/14/21 02/04/22 Rx clavulanate 125 mg tablet (Augmentin) fluconazole 100 mg tablet 200 mg PO DAILY 10 days #20 tabs 01/10/22 02/04/22 Rx (Diflucan) melatonin 3 mg tablet 3 mg PO HS 02/04/22 02/04/22 History Patient History Medical History Abscess of right shoulder (~09/2020) Benign prostatic hyperplasia with urinary obstruction CAD (coronary artery disease) STENT X 1 (2001) AT [facility] Enlarged prostate High cholesterol History of IBS History of kidney stones History of myocardial infarction STENT X 1 (2001) S/P B/L TKA Stable; Has not had to use NTG since stent placement HTN (hypertension) Hx of basal cell carcinoma Hx of deep venous thrombosis LLE "A LONG TIME AGO" Hx of ulcerative colitis S/p colectomy- ileostomy 1990 and 1994 Hx of vertigo Ileostomy in place Left lower lobe pneumonia 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 Aneurysm present since [place] in 2001 per cardio Macular degeneration Neurogenic bladder NO DOS SANTOS CATHETER 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 PVCs (premature ventricular contractions) Asymptomatic per patient Right tibial fracture Right tibial fracture Sciatica TIA (transient ischemic attack) TIA vs complex migraine February 2019 Type 2 diabetes mellitus Surgical History History of anesthesia reaction SLOW TO WAKE, BREATHING ISSUES, NAUSEA AND VOMITING History of appendectomy History of arthroplasty of right shoulder Right TSA= 05/24/16= Grade 1 view, MAC#[address] [facility] History of cholecystectomy History of colonoscopy History of cystoscopy History of ERCP MULTIPLE History of exploratory laparotomy X2 "COMMON DUCT RECONSTRUCTION" History of hand surgery RT/LEFT THUMBS History of lumbar laminectomy History of total bilateral knee replacement Hx of bilateral cataract extraction Family History Father Myocardial infarction Family/Other Hypertension Nephrolithiasis Sister FH: ovarian cancer Other Family history of breast cancer in mother Social History Smoking Status: Never smoker Second Hand Exposure: No; Hx Alcohol Use: Yes Alcohol type: wine Hx Substance Use: No Preferred Language: Pashto Communication Ability: Effective Special Library Librarian Required: No Beliefs That Will Affect Care: None marital status: Current Living Situation: Spouse Current Living Situation Comment: Currently in [facility] post fall and leg fracture 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 Feels Safe at Home: Yes Safety Concerns: Feels Safe At This Time Assistive Devices: None and Walker Review of Systems Constitutional: + fatigue, + malaise and + anorexia; no fever and no chills Eyes: no eye pain Ear, Nose, Mouth, Throat: no ear pain Respiratory: no cough and no dyspnea Cardiovascular: no chest pain Gastrointestinal: no abdominal pain, no nausea and no vomiting Genitourinary: + as per Subjective / HPI Musculoskeletal: no back pain Integumentary: no rash Neurologic: no localized weakness Physical Exam Constitutional: no acute distress Eyes: no conjunctival abnormality ENMT: Ears: no hearing impairment and no external ear abnormality Mouth: no oropharynx abnormality Neck: trachea midline Respiratory: normal respiratory effort; no respiratory distress and no labored breathing Cardiovascular: Rate/Rhythm: regular rate and regular rhythm Gastrointestinal (Abdomen): Soft, nonrigid, nondistended. No pain with palpation Musculoskeletal: No calf tenderness Skin: no rashes Neurologic: moves all extremities Genitourinary: no CVA tenderness Patient's penis was examined and there is generalized edema noted of the penile shaft as well as his scrotum. The patient did have a Dos Santos catheter in place that appear to be draining some turbid colored urine. Results & Data ([facility]) Vital Signs (Past 12 Hours) Vital Signs Temp Pulse Pulse Pulse Resp BP BP 02/04/22 16:27 36.8 C 67 20 124/61 02/04/22 16:30 84 02/04/22 16:29 02/04/22 16:29 36.4 C L 81 20 115/58 L 02/04/22 15:57 02/04/22 15:40 80 22 02/04/22 15:30 75 17 08/01/22 15:30 112/57 L 02/04/22 15:20 82 20 02/04/22 15:10 78 21 02/04/22 15:00 78 18 02/04/22 15:00 112/50 L 02/04/22 14:50 74 16 02/04/22 14:40 78 22 02/04/22 14:30 80 24 02/04/22 14:30 106/57 L 02/04/22 14:20 76 14 02/04/22 14:10 77 17 02/04/22 14:00 72 22 02/04/22 14:00 106/58 L 02/04/22 13:50 78 20 02/04/22 13:40 79 19 02/04/22 13:30 81 20 02/04/22 13:30 104/56 L 02/04/22 13:20 83 23 02/04/22 13:10 86 22 02/04/22 13:00 93 H 25 H 02/04/22 13:00 114/79 02/04/22 12:55 21 02/04/22 12:40 77 19 02/04/22 12:36 82 23 02/04/22 14:00 36.5 C 74 20 106/58 L 02/04/22 12:31 81 20 103/49 L 02/04/22 09:27 36.0 C L 73 22 92/50 L Pulse Ox O2 Del Method 02/04/22 16:27 02/04/22 16:30 02/04/22 16:29 Room Air 02/04/22 16:29 95 Room Air 02/04/22 15:57 Room Air 02/04/22 15:40 96 02/04/22 15:30 96 02/04/22 15:30 02/04/22 15:20 95 02/04/22 15:10 96 02/04/22 15:00 95 02/04/22 15:00 02/04/22 14:50 96 02/04/22 14:40 96 02/04/22 14:30 95 02/04/22 14:30 02/04/22 14:20 95 02/04/22 14:10 94 02/04/22 14:00 94 02/04/22 14:00 02/04/22 13:50 95 02/04/22 13:40 93 02/04/22 13:30 92 02/04/22 13:30 02/04/22 13:20 91 02/04/22 13:10 88 L 02/04/22 13:00 89 L 02/04/22 13:00 02/04/22 12:55 02/04/22 12:40 93 02/04/22 12:36 93 02/04/22 14:00 96 Room Air 02/04/22 12:31 93 Room Air 02/04/22 09:27 93 Room Air PG Care Time/CCT Total # of Minutes Spent Total Time Spent with Patient: Total time spent is greater than 50% in coordination of care (as documented) at patient's floor/unit and/or counseling patient: Coding Level of Care Code 68309 Inpt Consult Level 5 Diagnoses Sepsis A41.9; R65.20; N17.9 Acute renal failure type: unspecified Sepsis acute organ dysfunction status: with acute organ dysfunction Sepsis type: sepsis due to unspecified organism Severe sepsis acute organ dysfunction type: acute renal failure Severe sepsis shock status: unspecified UTI (urinary tract infection) N39.0 (1) Sepsis Acute renal failure type: unspecified Sepsis acute organ dysfunction status: with acute organ dysfunction Sepsis type: sepsis due to unspecified organism Severe sepsis acute organ dysfunction type: acute renal failure Severe sepsis shock status: unspecified Qualified Code(s): A41.9 - Sepsis, unspecified organism; R65.20 - Severe sepsis without septic shock; N17.9 - Acute kidney failure, unspecified
[2022-02-04] MEDS ORDERED: CEFEPIME 2,000 MG in SYRINGE 0 ML IV SCH (21:00)
[2022-02-04] MEDS ORDERED: PATIROMER CALCIUM SORBITEX 8.4 GM PACK PO ONE (21:41)
[2022-02-04] MEDS ORDERED: HEPARIN SOD 5,000 UNIT/0.5 ML VIAL SQ SCH (22:00)
[2022-02-04] MEDS: ACETAMINOPHEN 325 MG TAB PO PRN (22:41)
[2022-02-04] MEDS: MELATONIN 3 MG TAB PO SCH (22:42)
[2022-02-04] MEDS: INSULIN ASPART PER UNIT SC SCH (22:47)
[2022-02-04] MEDS: CEROVITE ADV FORMULA TAB PO SCH (22:51)
[2022-02-05] MEDS: ONDANSETRON INJ 2 MG/ML 2 ML VIAL IV PRN ×2 (04:10→14:08)
[2022-02-05] MEDS ORDERED: MoRPHine SULFATE 2 MG/ML CARP IV STA (04:18)
[2022-02-05] MEDS: ACETAMINOPHEN 325 MG TAB PO PRN ×2 (05:26→18:07)
[2022-02-05 08:37] LABS: INR 1.4 (0.9-1.1); Prothrombin Time 14.3 Seconds (9.0-12.0)
[2022-02-05 08:44] LABS: Basophils # (auto) 0.01 K/uL (0-0.2); Basophils % (auto) 0.2 %; Eosinophils # (auto) 0.03 K/uL (0-0.50); Eosinophils % (auto) 0.6 %; Hemoglobin 8.5 g/dl (14.0-18.0); Immature Granulocytes # (auto) 0.03 K/uL (0.00-0.02); Immature Granulocytes % (auto) 0.6 %; Lymphocytes # (auto) 0.43 K/uL (1.2-3.4); Lymphocytes % (auto) 7.9 %; Mean Corpuscular Hemoglobin 32.7 pg (25.0-34.0); Mean Corpuscular Volume 96.2 fL (80.0-100.0); Monocytes # (auto) 0.42 K/uL (0.24-0.82); Monocytes % (auto) 7.7 %; Neutrophils # (auto) 4.52 K/uL (1.4-6.5); Ovalocytes 1+; Platelet Count 38 K/uL (130-400); RDW Coefficient of Variation 17.6 % (11.5-14.5); RDW Standard Deviation 60.8 fL (36.4-46.3); Tear Drop Cells 1+; White Blood Count 5.44 K/ul (4.8-10.8)
[2022-02-05 08:48] LABS: Albumin Level 2.5 gm/dl (3.4-5.0); BUN Creatinine Ratio 21.5 (10-20); Bilirubin Direct 5.1 mg/dl (0-0.2); Bilirubin,Total 7.2 mg/dl (0.2-1.0); Calcium 7.4 mg/dl (8.5-10.1); Creatinine Clr Calc Pharmacy 20.9 ml/min; Est GFR (African American) 22.3 ml/min; Est GFR (Non-African American) 19.2 ml/min; Magnesium 1.9 mg/dl (1.7-2.4); Potassium 4.9 mmol/L (3.5-5.1)
[2022-02-05 09:00] LABS: Ferritin 316.2 ng/ml (8-388)
--- NOTE | 2022-02-05 09:03 | Nephrology Consultation ---
Date of Consultation February 05, 2022 Assessment & Plan (1) Acute renal failure: (2) Chronic kidney disease with active medical management without dialysis, stage 2 (mild): (3) Cellulitis of penis: (4) Sclerosing cholangitis: Plan Nonoliguric FORTUNATO/CKD due to infection/cellulitis. Agree w/ providing broad spectrum antibiotics. Monitor for fungal infection and haun's gangrene. Agree w/ obtaining Urology consultation. No obstruction/hydronephrosis reported on 02/04/[address] Urine microscopy is negative for ATN casts. Home NSAIDS have been stopped. Patient remains clinically volume contracted. Will provide gentle hydration w/NaHCO3 to help correct metabolic acidosis. Follow up PRP ordered for am. No acute indication for HD at this time. History of Present Illness Reason for Consultation: FORTUNATO Attending Physician: Brock Rosenberg History of Present Illness Mr. Tesfaye is an 81 year old white male who is seen at the request of Dr. Martines for evaluation of FORTUNATO. Medical records in the EMR were reviewed today and are summarized as follows: Mr. Tesfaye has CKD stage G2 (mild impairment) w/ baseline Cr 0.7 - 0.9 and EGFR 76 cc/min. He has not undergone Nephrology evaluation in the past and has not had his proteinuria quantitated. Mr. Tesfaye medical history is significant for ulcerative colitis s/p ileostomy, ventral wall hernia, primary sclerosing cholangitis, CAD, AODM, kidney stones, BPH. He has suffered from recurrent urethral stricture and has recently required several Urologic procedures. Mr. Tesfaye reports a laceration of the urethra requiring a chronic indwelling Dos Santos catheter. Approximately 5 days ago he developed erythema and swelling of his genitalia. This progressively worsened despite oral antibiotic therapy and he presented to the [facility] EMD last evening for evaluation. There he was noted to be mildly hypotensive w/ Cr 2.3, HCO3 13, Na 127, COVID negative. CT revealed showed bladder wall thickening with infiltration adjacent to the bladder, seminal vesicles, prostate, as well as cirrhosis and increasing splenomegaly with trace ascites, LLQ ileostomy and large parastomal hernia with multiple small loops however no evidence of obstruction. Allergies Allergy/AdvReac Type Severity Reaction Status Date / Time Egg Derived Allergy Intermediate RASH WITH Verified 02/04/22 15:01 LARGE QUANTITIES metformin Allergy Intermediate GI ISSUES Verified 02/04/22 15:01 pollen extracts Allergy Intermediate ITCHY Verified 02/04/22 15:01 EYES, SNEEZING, CONGESTION codeine AdvReac Intermediate N/V, Verified 02/04/22 15:01 HYPOTENSTION fentanyl AdvReac Intermediate EXTREME Verified 02/04/22 15:01 NAUSEA; BP DROPS meperidine AdvReac Intermediate N/V, Verified 02/04/22 15:01 HYPOTENSTION morphine AdvReac Intermediate N/V, Verified 02/04/22 15:01 HYPOTENSTION Flu Virus Vaccine Allergy Intermediate AVOIDS DUE Uncoded 02/04/22 15:01 TO EGG ALLERGY NARCOTICS AdvReac Intermediate N/V, Uncoded 02/04/22 15:01 HYPOTENSTION Home Medications Medication Instructions Recorded Confirmed Type alendronate 70 mg tablet (Fosamax) 70 mg PO WK 09/29/18 02/04/22 History allopurinol 300 mg tablet 300 mg PO QAM 09/29/18 02/04/22 History finasteride 5 mg tablet (Proscar) 5 mg PO QAM 09/29/18 02/04/22 History magnesium oxide 400 mg PO QAM 09/29/18 02/04/22 History ursodiol 300 mg capsule 300 mg PO BIDM 09/29/18 02/04/22 History folic acid 1 mg tablet 1 mg PO QAM 02/02/19 02/04/22 History cranberry 500 mg capsule 500 mg PO QAM 04/02/19 02/04/22 History meclizine 25 mg tablet 25 mg PO TID PRN Vertigo 04/02/19 02/04/22 History (Medi-Meclizine) loratadine 10 mg tablet (Claritin) 10 mg PO QAM PRN Congestion 06/24/19 02/04/22 History calcium carbonate 500 mg-vitamin 1 tab PO QAM 02/09/21 02/04/22 History D3 5 mcg (200 unit) tablet (Calcium 500 + D) misoprostol 100 mcg tablet 200 mcg PO QAM 02/09/21 02/04/22 History (Cytotec) omega 9-chh-uke-fish oil 1,000 mg 1 cap PO QID 02/09/21 02/04/22 History (120 mg-180 mg) capsule (Fish Oil) vitamin A-vitamin C-vit E-min 1 tab PO BID 02/09/21 02/04/22 History tablet (Ocutabs) Saccharomyces boulardii 250 mg 250 mg PO DAILY #30 caps 02/13/21 02/04/22 Rx capsule (Florastor) metoprolol tartrate 25 mg tablet 75 mg PO QPM #90 tabs 02/13/21 02/04/22 Rx alfuzosin 10 mg tablet,extended 10 mg PO DAILY 04/30/21 02/04/22 History release 24 hr aspirin 81 mg tablet,delayed 81 mg PO DAILY 04/30/21 02/04/22 History release diclofenac sodium 75 mg 75 mg PO DAILY 04/30/21 02/04/22 History tablet,delayed release metoprolol tartrate 100 mg tablet 50 mg PO QAM 04/30/21 02/04/22 History (Lopressor) omeprazole 20 mg capsule,delayed 20 mg PO DAILY 04/30/21 02/04/22 History release rosuvastatin 10 mg tablet 10 mg PO DAILY 04/30/21 02/04/22 History amoxicillin 500 mg-potassium 1 tab PO BID 6 days #20 tabs 12/14/21 02/04/22 Rx clavulanate 125 mg tablet (Augmentin) fluconazole 100 mg tablet 200 mg PO DAILY 10 days #20 tabs 01/10/22 02/04/22 Rx (Diflucan) melatonin 3 mg tablet 3 mg PO HS 02/04/22 02/04/22 History Patient History Medical History Abscess of right shoulder (~09/2020) Benign prostatic hyperplasia with urinary obstruction CAD (coronary artery disease) STENT X 1 (2001) AT [facility] Enlarged prostate High cholesterol History of IBS History of kidney stones History of myocardial infarction STENT X 1 (2001) S/P B/L TKA Stable; Has not had to use NTG since stent placement HTN (hypertension) Hx of basal cell carcinoma Hx of deep venous thrombosis LLE "A LONG TIME AGO" Hx of ulcerative colitis S/p colectomy- ileostomy 1990 and 1994 Hx of vertigo Ileostomy in place Left lower lobe pneumonia 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 Aneurysm present since [place] in 2001 per cardio Macular degeneration Neurogenic bladder NO DOS SANTOS CATHETER 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 PVCs (premature ventricular contractions) Asymptomatic per patient Right tibial fracture Right tibial fracture Sciatica TIA (transient ischemic attack) TIA vs complex migraine February 2019 Type 2 diabetes mellitus Surgical History History of anesthesia reaction SLOW TO WAKE, BREATHING ISSUES, NAUSEA AND VOMITING History of appendectomy History of arthroplasty of right shoulder Right TSA= 05/24/16= Grade 1 view, MAC#4 at [facility] History of cholecystectomy History of colonoscopy History of cystoscopy History of ERCP MULTIPLE History of exploratory laparotomy X2 "COMMON DUCT RECONSTRUCTION" History of hand surgery RT/LEFT THUMBS History of lumbar laminectomy History of total bilateral knee replacement Hx of bilateral cataract extraction Family History Father Myocardial infarction Family/Other Hypertension Nephrolithiasis Sister FH: ovarian cancer Other Family history of breast cancer in mother Social History Smoking Status: Never smoker Second Hand Exposure: No; Hx Alcohol Use: Yes Alcohol type: wine Hx Substance Use: No Preferred Language: Mozambican Communication Ability: Effective Lsat Instructor Required: No Beliefs That Will Affect Care: None marital status: Current Living Situation: Spouse Current Living Situation Comment: Currently in [facility] post fall and leg fracture current occupational status: retired current occupation: [employer] Feels Safe at Home: Yes Safety Concerns: Feels Safe At This Time Assistive Devices: Walker Review of Systems Constitutional: no fever Eyes: no problem reported Ear, Nose, Mouth, Throat: no problem reported Respiratory: no dyspnea Cardiovascular: no chest pain Gastrointestinal: no abdominal pain and no diarrhea/loose stools Genitourinary: + genital pain and + scrotal swelling Physical Exam Constitutional: not in distress Eyes: PERRL; sclerae not anicteric ENMT: external ear and nose normal, oropharynx normal Neck: trachea midline, no thyromegaly Respiratory: normal respiratory effort, lungs clear to auscultation Cardiovascular: RRR, no murmur, no edema Gastrointestinal (Abdomen): Inspection/Auscultation: normal bowel sounds Percussion/Palpation: abdomen soft; abdomen nontender and no guarding Genitourinary: Dos Santos catheter in place, erythema/swelling of penis and scrotum. No crepitus. No inguinal erythema/crepitus or adenopathy Results & Data ([facility]) Vital Signs (Past 12 Hours) Vital Signs Temp Pulse Pulse Resp BP Pulse Ox O2 Del Method 02/05/22 07:58 36.7 C 99 H 18 108/54 L 92 Room Air 02/05/22 03:00 36.8 C 88 20 124/57 L 92 Room Air 02/04/22 23:00 96 H 02/04/22 23:04 Room Air 02/04/22 22:39 36.4 C L 91 H 20 115/59 L 90 Laboratory Results Laboratory Tests 11/21/21 02/04/22 02/04/22 00:00 10:28 14:49 WBC Hgb Hct Plt Count Sodium Potassium Chloride Carbon Dioxide BUN Creatinine 0.81 2.36 H 2.28 H Calcium Transferrin % Sat Ferritin Albumin 02/05/22 02/05/22 07:21 07:21 WBC 5.44 Hgb 8.5 L Hct 25.0 L Plt Count 38 L Sodium 127 L Potassium 4.9 Chloride 101 Carbon Dioxide 16 L BUN 62 H Creatinine 2.89 H D Calcium 7.4 L Transferrin % Sat 9 L Ferritin 316.2 Albumin 2.5 L Diagnostic Findings 02/04/22 blood and urine cultures - no growth to date PG Care Time/CCT Total # of Minutes Spent Total Time Spent with Patient: Total time spent is greater than 50% in coordination of care (as documented) at patient's floor/unit and/or counseling patient: Coding Level of Care Code 67485 Inpt Consult Level 5 Diagnoses Acute renal failure N17.9 Acute renal failure type: unspecified Chronic kidney disease with active medical management without dialysis, stage 2 (mild) N18.2 Cellulitis of penis N48.22 Sclerosing cholangitis K83.09 (1) Acute renal failure Acute renal failure type: unspecified Qualified Code(s): N17.9 - Acute kidney failure, unspecified
[2022-02-05 09:06] LABS: Folate (Folic Acid) > 22.30 ng/ml (>5.38)
[2022-02-05 09:07] LABS: Vitamin B12 > 1500 pg/ml (180-914)
[2022-02-05] MEDS: INSULIN ASPART PER UNIT SC SCH ×4 (09:08→21:52)
[2022-02-05] MEDS: ursodioL 300 MG CAP PO SCH ×2 (09:10→18:08)
[2022-02-05] MEDS: FOLIC ACID 1 MG TAB PO SCH (09:10)
[2022-02-05] MEDS: SACCHAROMYCES BOULARDII 250 MG CAP PO SCH (09:10)
[2022-02-05] MEDS: ALFUZOSIN HCL 10 MG TAB PO SCH (09:10)
[2022-02-05] MEDS: METOPROLOL TARTRATE 50 MG TAB PO SCH (09:10)
[2022-02-05] MEDS: PANTOprazole 40 MG TAB PO SCH (09:10)
[2022-02-05] MEDS: FINASTERIDE 5 MG TAB PO SCH (09:10)
[2022-02-05] MEDS: CEROVITE ADV FORMULA TAB PO SCH ×2 (09:11→21:55)
--- NOTE | 2022-02-05 10:02 | Gastrointestinal Consultation ---
Date of Consultation February 05, 2022 Assessment & Plan (1) Elevated bilirubin: (2) Primary sclerosing cholangitis: Plan Patient is an 81 yo male with PSC and ongoing urologic issues resulting in hospitalization. He has recently been on Augmentin & Fluconazole as an outpatient. Upon admission, he was noted to have an elevated total bilirubin of 7.0. He is on IV Daptomycin & Cefepime and takes Ursodiol 300 mg BID. At present, I would advise continuation of antibiotic therapy prophylactically for cholangitis, continuing Ursodiol, obtaining an updated MRCP, and contacting Dr. Mcclellan at [facility]. We do not have any ERCP services this week at [facility] so ERCP needs would require transfer. Would ask that LFTs and INR be followed closely while patient is admitted. Supervising Physician Co-Signing Physician Notes Agree with CURLY Salgado as above Abd: Soft, NT, ND, +BS Continue current therapy and supportive care MRCP scheduled for today Recommend discussion with GI team at [facility] History of Present Illness Reason for Consultation: PSC, elevated bilirubin Attending Physician: Brock Rosenberg History of Present Illness Jordy Tesfaye is an 81 yo male with PMH of ulcerative colitis s/p ileostomy, primary sclerosing cholangitis, CAD, and urinary stricture that has been recurring for many years. GI has been consulted due to the patient's elevated T bili of 7.0 in the setting of known PSC. Patient notes he was diagnosed with PSC over 60 years ago. He has received his care through [facility] (Dr. Quincy Mcclellan). His T bili is 7.0 and D bili is 5.2. AST & ALT are within normal limits Alk phos is 125. INR 1.3. Patient has been on Ursodiol 300 mg BID for many years. He has never had a liver transplant. He notes that he was previously getting an ERCP q 3 months, however last May he notes that he and his doctor decided to try to extend the interval between ERCPs due to benefit vs risk analysis. He notes that he is supposed to have another ERCP this fall. He has been conflicted about whether to continue following at [facility] now that he is aging vs following at [facility] since it is closer. He had a CT scan during this admission at [facility] that indicated cirrhotic liver and wall thickening of the CBD that appears unchanged from previous scans. There was pneumobilia and non mass-like heterogeneity within portions of the liver. He notes to me that he has recently had a return of right sided abdominal discomfort that he says he typically feels before he has issues with his PSC. Patient is currently admitted with other medical issues related to sepsis felt to be secondary to a urethral laceration that led to significant penile swelling. He is being worked up at [facility] for urerthral cancer. Due to abnormal UAs as an outpatient, patient has been on Bactrim and Fluconazole prior to admission. He was also recently on Macrodantin. In the ED, he was hypotensive and labs revealed BUN/Cr 60/2.28, bicarb 13, K 5.7, Na 127, Calcium 7, and liver function tests as listed above. He is currently on Daptomycin & Cefepime. ID has been involved at [facility] due to his complex picture. Allergies Allergy/AdvReac Type Severity Reaction Status Date / Time Egg Derived Allergy Intermediate RASH WITH Verified 02/04/22 15:01 LARGE QUANTITIES metformin Allergy Intermediate GI ISSUES Verified 02/04/22 15:01 pollen extracts Allergy Intermediate ITCHY Verified 02/04/22 15:01 EYES, SNEEZING, CONGESTION codeine AdvReac Intermediate N/V, Verified 02/04/22 15:01 HYPOTENSTION fentanyl AdvReac Intermediate EXTREME Verified 02/04/22 15:01 NAUSEA; BP DROPS meperidine AdvReac Intermediate N/V, Verified 02/04/22 15:01 HYPOTENSTION morphine AdvReac Intermediate N/V, Verified 02/04/22 15:01 HYPOTENSTION Flu Virus Vaccine Allergy Intermediate AVOIDS DUE Uncoded 02/04/22 15:01 TO EGG ALLERGY NARCOTICS AdvReac Intermediate N/V, Uncoded 02/04/22 15:01 HYPOTENSTION Home Medications Medication Instructions Recorded Confirmed Type alendronate 70 mg tablet (Fosamax) 70 mg PO WK 09/29/18 02/04/22 History allopurinol 300 mg tablet 300 mg PO QAM 09/29/18 02/04/22 History finasteride 5 mg tablet (Proscar) 5 mg PO QAM 09/29/18 02/04/22 History magnesium oxide 400 mg PO QAM 09/29/18 02/04/22 History ursodiol 300 mg capsule 300 mg PO BIDM 09/29/18 02/04/22 History folic acid 1 mg tablet 1 mg PO QAM 02/02/19 02/04/22 History cranberry 500 mg capsule 500 mg PO QAM 04/02/19 02/04/22 History meclizine 25 mg tablet 25 mg PO TID PRN Vertigo 04/02/19 02/04/22 History (Medi-Meclizine) loratadine 10 mg tablet (Claritin) 10 mg PO QAM PRN Congestion 06/24/19 02/04/22 History calcium carbonate 500 mg-vitamin 1 tab PO QAM 02/09/21 02/04/22 History D3 5 mcg (200 unit) tablet (Calcium 500 + D) misoprostol 100 mcg tablet 200 mcg PO QAM 02/09/21 02/04/22 History (Cytotec) omega 9-sbl-euy-fish oil 1,000 mg 1 cap PO QID 02/09/21 02/04/22 History (120 mg-180 mg) capsule (Fish Oil) vitamin A-vitamin C-vit E-min 1 tab PO BID 02/09/21 02/04/22 History tablet (Ocutabs) Saccharomyces boulardii 250 mg 250 mg PO DAILY #30 caps 02/13/21 02/04/22 Rx capsule (Florastor) metoprolol tartrate 25 mg tablet 75 mg PO QPM #90 tabs 02/13/21 02/04/22 Rx alfuzosin 10 mg tablet,extended 10 mg PO DAILY 04/30/21 02/04/22 History release 24 hr aspirin 81 mg tablet,delayed 81 mg PO DAILY 04/30/21 02/04/22 History release diclofenac sodium 75 mg 75 mg PO DAILY 04/30/21 02/04/22 History tablet,delayed release metoprolol tartrate 100 mg tablet 50 mg PO QAM 04/30/21 02/04/22 History (Lopressor) omeprazole 20 mg capsule,delayed 20 mg PO DAILY 04/30/21 02/04/22 History release rosuvastatin 10 mg tablet 10 mg PO DAILY 04/30/21 02/04/22 History amoxicillin 500 mg-potassium 1 tab PO BID 6 days #20 tabs 12/14/21 02/04/22 Rx clavulanate 125 mg tablet (Augmentin) fluconazole 100 mg tablet 200 mg PO DAILY 10 days #20 tabs 01/10/22 02/04/22 Rx (Diflucan) melatonin 3 mg tablet 3 mg PO HS 02/04/22 02/04/22 History Patient History Medical History Abscess of right shoulder (~09/2020) Benign prostatic hyperplasia with urinary obstruction CAD (coronary artery disease) STENT X 1 (2001) AT [facility] Enlarged prostate High cholesterol History of IBS History of kidney stones History of myocardial infarction STENT X 1 (2001) S/P B/L TKA Stable; Has not had to use NTG since stent placement HTN (hypertension) Hx of basal cell carcinoma Hx of deep venous thrombosis LLE "A LONG TIME AGO" Hx of ulcerative colitis S/p colectomy- ileostomy 1990 and 1994 Hx of vertigo Ileostomy in place Left lower lobe pneumonia 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 Aneurysm present since [place] in 2001 per cardio Macular degeneration Neurogenic bladder NO DOS SANTOS CATHETER 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 PVCs (premature ventricular contractions) Asymptomatic per patient Right tibial fracture Right tibial fracture Sciatica TIA (transient ischemic attack) TIA vs complex migraine February 2019 Type 2 diabetes mellitus Surgical History History of anesthesia reaction SLOW TO WAKE, BREATHING ISSUES, NAUSEA AND VOMITING History of appendectomy History of arthroplasty of right shoulder Right TSA= 05/24/16= Grade 1 view, MAC#4 at [facility] History of cholecystectomy History of colonoscopy History of cystoscopy History of ERCP MULTIPLE History of exploratory laparotomy X2 "COMMON DUCT RECONSTRUCTION" History of hand surgery RT/LEFT THUMBS History of lumbar laminectomy History of total bilateral knee replacement Hx of bilateral cataract extraction Family History Father Myocardial infarction Family/Other Hypertension Nephrolithiasis Sister FH: ovarian cancer Other Family history of breast cancer in mother Social History Smoking Status: Never smoker Second Hand Exposure: No; Hx Alcohol Use: Yes Alcohol type: wine Hx Substance Use: No Preferred Language: Afghan Communication Ability: Effective Housing Management Officer Required: No Beliefs That Will Affect Care: None marital status: Current Living Situation: Spouse Current Living Situation Comment: Currently in [facility] post fall and leg fracture 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 Feels Safe at Home: Yes Safety Concerns: Feels Safe At This Time Assistive Devices: Walker Review of Systems Constitutional: no fever and no chills Respiratory: no cough and no dyspnea Cardiovascular: no chest pain Gastrointestinal: + abdominal pain Psychiatric: no problem reported Physical Exam Constitutional: well developed Respiratory: normal respiratory effort Cardiovascular: Rate/Rhythm: regular rate Gastrointestinal (Abdomen): Inspection/Auscultation: abdomen normal to inspection; abdomen not distended Percussion/Palpation: abdomen soft; abdomen nontender Musculoskeletal: Head/Neck/Chest: normocephalic Psychiatric: Orientation: alert and oriented x 3 Results & Data ([facility]) Vital Signs (Past 12 Hours) Vital Signs Temp Pulse Pulse Resp BP Pulse Ox O2 Del Method 02/05/22 07:58 36.7 C 99 H 18 108/54 L 92 Room Air 02/05/22 03:00 36.8 C 88 20 124/57 L 92 Room Air 02/04/22 23:00 96 H 02/04/22 23:04 Room Air 02/04/22 22:39 36.4 C L 91 H 20 115/59 L 90 PG Care Time/CCT Total # of Minutes Spent Total Time Spent with Patient: Total time spent is greater than 50% in coordination of care (as documented) at patient's floor/unit and/or counseling patient: Coding Level of Care Code 95250 Initial Inpt Care Lvl 3 Diagnoses Elevated bilirubin R17 Primary sclerosing cholangitis K83.0
[2022-02-05] MEDS: CEFEPIME 1,000 MG in SYRINGE 0 ML IV SCH (12:29)
[2022-02-05 13:08] LABS: Estimated Average Glucose 146 mg/dl; Hemoglobin A1C 6.7 % (4.5-5.6)
[2022-02-05] MEDS ORDERED: SODIUM BICARBONATE 8.4% 150 MEQ in DEXTROSE 5% 1,000 ML IV SCH (16:00)
--- NOTE | 2022-02-05 17:06 | Urology Consultation ---
Date of Consultation February 05, 2022 Assessment & Plan (1) Cellulitis of penis: (2) Urethral stricture: Plan Complex case Imaging reviewedunfortunately his abdominal hernias make him an extremely challenging suprapubic tube placement limiting this option for him long-term management He has ongoing urethral issues and likely an upcoming biopsy, however, his acute care needs to focus on treatment of his infection Continue cefepime and daptomycin pending culture results He has previously had yeast issues and may require other Diflucan/antifungal treatments Ideally if he can stabilize over the next 2 days we can have him back in [place] on Fridayhe is due to see infectious disease there at that time and hoping to see urological oncologist about scheduling a urethral biopsy No interventions planned at our institution Of note, his creatinine is currently 2.[address] on arrival which I reviewed and discussed that she does not appear to have any hydronephrosis or obstructive etiology to his renal failure Greater than 60 minutes spent on this consultation including extensive question and answer with the patient and his History of Present Illness Attending Physician: Brock Rosenberg History of Present Illness 81-year-old male with a very long and complex urological history as well as general surgical history He has a large hiatal hernia and abdominal wall defect He has a history of urethral stricturingstatus post TURP and bladder stone treatment in 2019 He has been following in [place] with a pediatric reconstructive specialist He is in the midst of undergoing treatment therefore recurrent infections of the urethra and bulb of the penis. There has been some discussion about possible underlying pathology of his infection so he is tentatively moving towards a biopsy of the bulbar urethral tissue. Unfortunately he developed an infection after recent catheter change in [place]. He now has presented to our ins titution is on daptomycin and cefepime He is comfortable at present and his urine is draining clear He is afebrile and hemodynamically stable He does not feel well compared to his baseline but far improved from when he arrived in the hospital I have reviewed an extensive number of outside urology notes as well as some notes from our own office pertaining to his history and effort to gather idea of his underlying issues Allergies Allergy/AdvReac Type Severity Reaction Status Date / Time Egg Derived Allergy Intermediate RASH WITH Verified 02/04/22 15:01 LARGE QUANTITIES metformin Allergy Intermediate GI ISSUES Verified 02/04/22 15:01 pollen extracts Allergy Intermediate ITCHY Verified 02/04/22 15:01 EYES, SNEEZING, CONGESTION codeine AdvReac Intermediate N/V, Verified 02/04/22 15:01 HYPOTENSTION fentanyl AdvReac Intermediate EXTREME Verified 02/04/22 15:01 NAUSEA; BP DROPS meperidine AdvReac Intermediate N/V, Verified 02/04/22 15:01 HYPOTENSTION morphine AdvReac Intermediate N/V, Verified 02/04/22 15:01 HYPOTENSTION Flu Virus Vaccine Allergy Intermediate AVOIDS DUE Uncoded 02/04/22 15:01 TO EGG ALLERGY NARCOTICS AdvReac Intermediate N/V, Uncoded 02/04/22 15:01 HYPOTENSTION Home Medications Medication Instructions Recorded Confirmed Type alendronate 70 mg tablet (Fosamax) 70 mg PO WK 09/29/18 02/04/22 History allopurinol 300 mg tablet 300 mg PO QAM 09/29/18 02/04/22 History finasteride 5 mg tablet (Proscar) 5 mg PO QAM 09/29/18 02/04/22 History magnesium oxide 400 mg PO QAM 09/29/18 02/04/22 History ursodiol 300 mg capsule 300 mg PO BIDM 09/29/18 02/04/22 History folic acid 1 mg tablet 1 mg PO QAM 02/02/19 02/04/22 History cranberry 500 mg capsule 500 mg PO QAM 04/02/19 02/04/22 History meclizine 25 mg tablet 25 mg PO TID PRN Vertigo 04/02/19 02/04/22 History (Medi-Meclizine) loratadine 10 mg tablet (Claritin) 10 mg PO QAM PRN Congestion 06/24/19 02/04/22 History calcium carbonate 500 mg-vitamin 1 tab PO QAM 02/09/21 02/04/22 History D3 5 mcg (200 unit) tablet (Calcium 500 + D) misoprostol 100 mcg tablet 200 mcg PO QAM 02/09/21 02/04/22 History (Cytotec) omega 1-kih-wmz-fish oil 1,000 mg 1 cap PO QID 02/09/21 02/04/22 History (120 mg-180 mg) capsule (Fish Oil) vitamin A-vitamin C-vit E-min 1 tab PO BID 02/09/21 02/04/22 History tablet (Ocutabs) Saccharomyces boulardii 250 mg 250 mg PO DAILY #30 caps 02/13/21 02/04/22 Rx capsule (Florastor) metoprolol tartrate 25 mg tablet 75 mg PO QPM #90 tabs 02/13/21 02/04/22 Rx alfuzosin 10 mg tablet,extended 10 mg PO DAILY 04/30/21 02/04/22 History release 24 hr aspirin 81 mg tablet,delayed 81 mg PO DAILY 04/30/21 02/04/22 History release diclofenac sodium 75 mg 75 mg PO DAILY 04/30/21 02/04/22 History tablet,delayed release metoprolol tartrate 100 mg tablet 50 mg PO QAM 04/30/21 02/04/22 History (Lopressor) omeprazole 20 mg capsule,delayed 20 mg PO DAILY 04/30/21 02/04/22 History release rosuvastatin 10 mg tablet 10 mg PO DAILY 04/30/21 02/04/22 History amoxicillin 500 mg-potassium 1 tab PO BID 6 days #20 tabs 12/14/21 02/04/22 Rx clavulanate 125 mg tablet (Augmentin) fluconazole 100 mg tablet 200 mg PO DAILY 10 days #20 tabs 01/10/22 02/04/22 Rx (Diflucan) melatonin 3 mg tablet 3 mg PO HS 02/04/22 02/04/22 History Patient History Medical History Abscess of right shoulder (~09/2020) Benign prostatic hyperplasia with urinary obstruction CAD (coronary artery disease) STENT X 1 (2001) AT 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 Aneurysm present since MD in 2001 per cardio Macular degeneration Neurogenic bladder NO DOS SANTOS CATHETER 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 PVCs (premature ventricular contractions) Asymptomatic per patient Right tibial fracture Right tibial fracture Sciatica TIA (transient ischemic attack) TIA vs complex migraine February 2019 Type 2 diabetes mellitus Surgical History History of anesthesia reaction SLOW TO WAKE, BREATHING ISSUES, NAUSEA AND VOMITING History of appendectomy History of arthroplasty of right shoulder Right TSA= 05/24/16= Grade 1 view, MAC#4 at [facility] History of cholecystectomy History of colonoscopy History of cystoscopy History of ERCP MULTIPLE History of exploratory laparotomy X2 "COMMON DUCT RECONSTRUCTION" History of hand surgery RT/LEFT THUMBS History of lumbar laminectomy History of total bilateral knee replacement Hx of bilateral cataract extraction Family History Father Myocardial infarction Family/Other Hypertension Nephrolithiasis Sister FH: ovarian cancer Other Family history of breast cancer in mother Social History Smoking Status: Never smoker Second Hand Exposure: No; Hx Alcohol Use: Yes Alcohol type: wine Hx Substance Use: No Preferred Language: Stateless Communication Ability: Effective E/M Engineer Required: No Beliefs That Will Affect Care: None marital status: Current Living Situation: Spouse Current Living Situation Comment: Currently in [facility] post fall and leg fracture current occupational status: retired current occupation: [employer] Feels Safe at Home: Yes Safety Concerns: Feels Safe At This Time Assistive Devices: Walker Review of Systems Constitutional: + fever, + chills and + fatigue Eyes: no worsening vision Ear, Nose, Mouth, Throat: no facial pain and no pain with swallowing Respiratory: no cough and no dyspnea Cardiovascular: no chest pain and no palpitations Gastrointestinal: no abdominal pain, no nausea and no vomiting Large abdominal hernia Genitourinary: + as per Subjective / HPI and + problem reported (Swelling of the genitals, indwelling catheter) Musculoskeletal: no back pain Integumentary: no rash and no urticaria Neurologic: no gait abnormality and no unsteadiness Psychiatric: no behavioral changes and no depression Endocrine: + fatigue Physical Exam Physical Exam: Left-sided ileostomy Massive hernia around the stoma as well as at the low midline He has numerous surgical scars Edema of the uncircumcised phallus and scrotum No fluctuance No crepitus Erythematous Some mild weeping of the scrotal skin Results & Data ([facility]) Vital Signs (Past 12 Hours) Vital Signs Temp Pulse Pulse Resp BP Pulse Ox O2 Del Method 02/05/22 15:09 77 02/05/22 11:25 36.7 C 77 18 114/61 94 Room Air 02/05/22 08:00 92 H 02/05/22 08:00 Room Air 02/05/22 07:58 36.7 C 99 H 18 108/54 L 92 Room Air PG Care Time/CCT Total # of Minutes Spent Total Time Spent with Patient: Total time spent is greater than 50% in coordination of care (as documented) at patient's floor/unit and/or counseling patient: Coding Level of Care Code 48867 Inpt Consult Level 5 Diagnoses Cellulitis of penis N48.22 Urethral stricture N35.919
--- NOTE | 2022-02-05 17:25 | Magnetic Resonance Report ---
MRCP CLINICAL HISTORY: Primary sclerosing cholangitis. Elevated bilirubin. COMPARISON STUDY: Abdominal CT dated 02/04/2022. MRCP dated 02/02/2019. TECHNIQUE: Abdominal MRCP is performed utilizing various T2-weighted sequences in the axial and coron al planes. IV contrast was not administered for this examination. 3-D reformats are created and asses sed. The examination is severely degraded by motion artifact. FINDINGS: The gallbladder is surgically absent. There is no intrahepatic biliary ductal dilatation. The common bile duct is not visualized, likely due to gas within the common duct seen on yesterday's CT scan. Th e common duct near the hepatic hilum measures up to 9 mm. The pancreatic duct is grossly unremarkable . The morphology of the intrahepatic ducts cannot be assessed due to motion artifact. The liver is cirrhotic in morphology and heterogeneous in signal intensity. Parenchymal scarring is n oted in the right lobe with capsular retraction. An intrahepatic portal venous shunt is noted. The sp kassy is markedly enlarged measuring 18 cm in craniocaudal length. The pancreas is atrophic and grossl y unremarkable. The kidneys demonstrate cortical atrophy and are without hydronephrosis. The adrenal glands are normal as imaged. The abdominal aorta is normal in caliber. There is trace perihepatic asc ites. No bowel obstruction is identified. A large hernia in the left lower quadrant is partially imag ed and contains bowel loops. Mildly enlarged upper abdominal lymph nodes are unchanged and likely rel ated to chronic liver disease. There are trace pleural effusions with dependent consolidation noted a t the lung bases. No destructive bony lesion is seen. IMPRESSION: 1. Severely motion compromised examination. 2. Status post cholecystectomy. 3. The common bile duct is not visualized, likely due to gas within the common duct seen on the recen t abdominal CT. 4. The morphology of the intrahepatic ducts cannot be evaluated due to motion artifact. 5. Cirrhotic liver morphology and marked splenomegaly. 6. Trace abdominal ascites. 7. Trace pleural effusions with dependent consolidation. Dictated: 02/05/2022 4:39 PM Transcribed: 02/05/2022 4:56 PM [facility] [id number] [email or web address] Electronically signed by: Bernardino Hernandez M.D. 02/05/2022 5:24 PM
--- NOTE | 2022-02-05 18:06 | Hospitalist Progress Note ---
Date of Service February 05, 2022 Assessment & Plan (1) Acute renal failure: Plan: - Cr 2.36, GFR 25.6, severely reduced from baseline. Likely due to infection. No signs of obstruction on imaging. appreciate input from Nephro. Continue gentle IV fluids with bicarb. Awaiting cultures -Urinalysis with evidence of infection as well as with blood and protein, no casts - IVF. Correct electrolytes as described above. - Avoid nephrotoxins, renally dose medications as able. -Maintain Banks catheter which is draining -Hold home diclofenac, Augmentin (2) Hyperkalemia: Plan: - 5.7 on BMP on presentation, POC 5.9. EKG without peaked T waves. patient started on insulin with D50 and sodium bicarb in ED, as well as receiving 2L NS boluses. - Calcium gluconate ordered, patient also with hypocalcemia, Ca++ 7.0. - Repeat potassium later in the afternoon down to 5.3. - Repeat BMP in the morning -Give 1 L of isotonic sodium bicarbonate drip at 80 mils per hour overnight -Giving more insulin for hyperglycemia -Low potassium diet -Give 1 dose of Veltassa -Monitor on telemetry for arrhythmia On 02/05 Improving. (3) Recurrent UTI (urinary tract infection): Plan: - UA with nitrites, leuko esterase, WBCs. Urine and blood cultures ordered, pending. -With suspected abscesses in the penis as per recent Urology notes - Due to prior urine cultures which grew MRSA, patient started on cefepime and daptomycin in ED, will continue these while waiting for cultures to result. -Holding home fluconazole due to worsening liver failure -Follows with infectious disease at [place] and has an appointment for this Friday (4) Urethral stricture: Plan: - Patient identified to have a near complete occlusion at the mid to proximal urethra in September. He has had several chronic Banks's in place, as well as been on several different antibiotics for chronic Krys infections. - Primarily sees Dr. Allison with [facility] urology, as well as [facility]rology group. There is induration at the proximal penile distal bulbar urethra. MRI performed at [facility] was read as multiloculated abscesses. Patient's case is being reviewed by urologist at [facility] that performs reconstructive surgery. It is indicated in most recent urology note that they are recommending patient have a biopsy of the area due to concerns for urethral cancer. -Continue catheter currently in place, emptying without complications. - Consult Urology for additional assistance, appreciate their recommendations. -With penile and scrotal swelling-question if related to infection? Also with erosion of the glans-his urologist is aware of this and suggest ways to offload pressure from the catheter on the penis -Tylenol as needed for pain (5) Type 2 diabetes mellitus: Plan: With hyperglycemia here after getting D50 in the ER as part of his treatment for hyperkalemia Start Accu-Cheks AC at bedtime, NovoLog sliding scale Give regular insulin 5 units again now for persistent hyperkalemia and for hyperglycemia Check hemoglobin A1c in the morning-last was 6.5% 3 months ago Not on medications at home (6) Hyponatremia: Plan: - 127 on BMP, POC 130. Suspect due to minimal/no PO intake over the past 5 days as well as acute kidney injury. - IVF ordered as well as bicarb gtt. -Follow BMP (7) Primary sclerosing cholangitis: Plan: - Longstanding diagnosis, with resulting cirrhosis. Follows with [facility] in [place]. Routine ERCPs q3 months, however has not had one since May 2021. Next due for this at the end of summer. - T bili elevated at 7.0, D bili 5.2. Alk phos at baseline, AST and ALT WNL. -Has been on fluconazole for approximately 8 weeks which may be contributing - CT A/P showed unchanged CBD wall thickening, unchanged cirrhosis of liver, pneumobilia noted. Pmo-fven-aszv heterogeneity within portions lumbar are similar to prior exams. No well-defined masses present. Splenomegaly is increased. - We will check ammonia level with p.m. BMP due to complaints of fatigue. - GI consult placed, appreciate their recommendations. -Okay to use Tylenol but no more than 2000 mg daily -Follow LFTs, INR, CBC in the morning -Statin on hold -Continue ursodiol (8) Thrombocytopenia: Plan: - PLTs 30k today, baseline ~50-70. - Suspect they are low from worsening splenomegaly, cirrhosis. - Monitor on AM labs. -Hold any blood thinners to include aspirin, and his home diclofenac (9) Anemia: Plan: - 9.0, macrocytic Near pt's baseline. Has an upcoming iron transfusion. Takes daily folic acid - No evidence of acute bleeding. Will monitor on daily CBC. (10) CAD (coronary artery disease): Plan: Holding home aspirin due to thrombocytopenia, hold home statin due to LFT elevation Okay to continue metoprolol with hold parameters (11) Abnormal chest x-ray: Plan: A new 1.7 cm irregular density within the periphery of the right midlung zone. This could represent a pulmonary nodule. Therefore, follow-up nonemergent chest CT is recommended for further evaluation. Follow-up as outpatient Made referral to pulmonary nodule clinic (12) Cirrhosis: Plan: Secondary to PSC as above Plan - Admitted to PCU. - SCDs for VTE ppx. Would not use chemical means due to thrombocytopenia - Full Code. Admission and Anticipated Discharge Date Admission Date: February 04, 2022 Subjective Patient reports no new symptoms. Denies any RUQ abd. pain, denies any fever, chills. Review of Systems Review of Systems: All systems reviewed & are unremarkable except as noted in HPI & below Physical Exam Physical Exam: General: awake, alert, no apparent distress Head: Normocephalic, atraumatic ENT: PERRL, EOMI, no pharyngeal exudate, mucous membranes moist Chest: Clear to auscultation, on room air, no adventitious breath sounds Cardiac: Regular rate and rhythm, no murmur, no JVD, normal peripheral pulses, good capillary refill Abdominal: NABS x 4 quadrants, soft, nontender to palpation, no rebound, guarding or tenderness : Pain on scrotal swelling, tenderness with purulent discharge noted around the catheter Extremities: Bilateral lower extremity erythema consistent with patient baseline; otherwise normal inspection, no peripheral edema or erythema, calfs nontender to palpation Psych: Normal mood and affect Neuro: AAO x 3, strength intact bilaterally and rated 5/5, no motor deficits, speech is clear, no peripheral sensory deficits Skin: no rash or erythema Results & Data Results & Data ([facility]) Vital Signs (Past 12 Hours) Vital Signs Temp Pulse Pulse Pulse Resp BP Pulse Ox 02/05/22 17:08 36.5 C 78 18 130/64 92 02/05/22 15:09 77 02/05/22 11:25 36.7 C 77 18 114/61 94 02/05/22 08:00 92 H 02/05/22 08:00 02/05/22 07:58 36.7 C 99 H 18 108/54 L 92 O2 Del Method 02/05/22 17:08 Room Air 02/05/22 15:09 02/05/22 11:25 Room Air 02/05/22 08:00 02/05/22 08:00 Room Air 02/05/22 07:58 Room Air PG Care Time/CCT Total # of Minutes Spent Total Time Spent with Patient: Total time spent is greater than 50% in coordination of care (as documented) at patient's floor/unit and/or counseling patient: Coding Level of Care Code 01751 Subseq Hosp Care Lvl 3 Diagnoses Acute renal failure N17.9 Hyperkalemia E87.5 Recurrent UTI (urinary tract infection) N39.0 Urethral stricture N35.919 Type 2 diabetes mellitus E11.65 Diabetes mellitus complication status: with hyperglycemia Diabetes mellitus perl programmer insulin use: without perl programmer use Hyponatremia E87.1 Primary sclerosing cholangitis K83.0 Thrombocytopenia D69.6 Anemia D64.9 CAD (coronary artery disease) I25.10 Abnormal chest x-ray R93.89 Cirrhosis K74.60 Time Spent (min) 35 (1) Type 2 diabetes mellitus Diabetes mellitus complication status: with hyperglycemia Diabetes mellitus retirement insulin use: without retirement use Qualified Code(s): E11.65 - Type 2 diabetes mellitus with hyperglycemia
[2022-02-05] MEDS: MELATONIN 3 MG TAB PO SCH (21:55)
[2022-02-05] MEDS: METOPROLOL TARTRATE 25 MG TAB PO SCH (21:55)
[2022-02-06] MEDS: ACETAMINOPHEN 325 MG TAB PO PRN (02:19)
[2022-02-06 07:43] LABS: Hematocrit (blood only) 26.9 % (40.1-51.0); Hemoglobin 9.5 g/dl (14.0-18.0); Mean Corpuscular Hemoglobin 33.3 pg (25.0-34.0); Mean Corpuscular Hgb Conc 35.3 g/dL (32.0-36.0); Mean Corpuscular Volume 94.4 fL (80.0-100.0); Platelet Count 53 K/uL (130-400); RDW Coefficient of Variation 17.1 % (11.5-14.5); RDW Standard Deviation 58.4 fL (36.4-46.3); Red Blood Count 2.85 M/uL (4.63-6.08)
[2022-02-06 07:55] LABS: Albumin Level 2.6 gm/dl (3.4-5.0); BUN Creatinine Ratio 17.5 (10-20); Bilirubin,Total 7.5 mg/dl (0.2-1.0); Calcium 7.7 mg/dl (8.5-10.1); Creatinine Clr Calc Pharmacy 16.2 ml/min; Est GFR (African American) 16.1 ml/min; Est GFR (Non-African American) 13.9 ml/min; Globulin 2.6 gm/dl (2.5-4.0); Potassium 5.5 mmol/L (3.5-5.1); Total Protein 5.2 gm/dl (6.0-8.3)
[2022-02-06] MEDS: ONDANSETRON INJ 2 MG/ML 2 ML VIAL IV PRN ×2 (08:13→13:58)
--- NOTE | 2022-02-06 08:26 | Nephrology Progress Note ---
Date of Service February 06, 2022 Assessment & Plan (1) Acute renal failure: Plan: * Nonoliguric FORTUNATO/CKD due to infection/cellulitis. Agree w/ providing broad spectrum antibiotics. Monitor for fungal infection and huan's gangrene. No obstruction/hydronephrosis reported on 02/04/[address] Urine microscopy is negative for ATN casts. NSAIDS have been stopped. Expect kidney function to stabilize as infection is controlled * Patient has mild metabolic acidosis and hyperkalemia. Will provide IV NaHCO3, one dose of IV Lasix and one dose of oral Patiromer this morning (2) Chronic kidney disease with active medical management without dialysis, s tage 2 (mild): Plan: * Baseline Cr 0.8 w/ EGFR 80 cc/min (3) Cellulitis of penis: (4) Sclerosing cholangitis: (5) Abdominal hernia: Admission and Anticipated Discharge Date Admission Date: February 04, 2022 Subjective Mr. Tesfaye was evaluated in his hospital room this morning. He c/o discomfort from his LLQ abdominal hernia and indwelling Banks catheter Review of Systems Constitutional: no fever Eyes: no problem reported Ear, Nose, Mouth, Throat: no problem reported Respiratory: no dyspnea Cardiovascular: no chest pain Gastrointestinal: + abdominal pain; no diarrhea/loose stools Genitourinary: + genital pain and + scrotal swelling Physical Exam Eyes: PERRL; sclerae not anicteric ENMT: external ear and nose normal, oropharynx normal Neck: trachea midline, no thyromegaly Respiratory: normal respiratory effort, lungs clear to auscultation Cardiovascular: RRR, no murmur, no edema Gastrointestinal (Abdomen): Inspection/Auscultation: normal bowel sounds Percussion/Palpation: + abdomen tender (LLQ large hernia is tender to palpation) and abdomen soft; no guarding Neurologic: awake; not confused Results & Data ([facility]) Vital Signs (Past 12 Hours) Vital Signs Temp Pulse Pulse Resp BP Pulse Ox O2 Del Method 02/06/22 07:59 36.5 C 77 22 127/56 L 91 Room Air 02/06/22 03:39 36.6 C 65 20 122/59 L 90 Room Air 02/05/22 22:30 75 02/05/22 22:58 36.7 C 73 20 124/63 90 Room Air 02/05/22 22:29 Room Air Laboratory Results Laboratory Tests 11/21/21 02/04/22 02/05/22 00:00 10:28 07:21 WBC Hgb Hct Plt Count Sodium Potassium Chloride Carbon Dioxide BUN Creatinine 0.81 2.36 H 2.89 H D Glucose Calcium 02/06/22 02/06/22 07:13 07:13 WBC 6.70 Hgb 9.5 L Hct 26.9 L Plt Count 53 L Sodium 124 L Potassium 5.5 H Chloride 98 Carbon Dioxide 16 L BUN 66 H Creatinine 3.77 H D Glucose 149 H Calcium 7.7 L PG Care Time/CCT Total # of Minutes Spent Total Time Spent with Patient: Total time spent is greater than 50% in coordination of care (as documented) at patient's floor/unit and/or counseling patient: Coding Level of Care Code 28091 Subseq Hosp Care Lvl 3 Diagnoses Acute renal failure N17.9 Acute renal failure type: unspecified Chronic kidney disease with active medical management without dialysis, stage 2 (mild) N18.2 Cellulitis of penis N48.22 Sclerosing cholangitis K83.09 Abdominal hernia K46.9 (1) Acute renal failure Acute renal failure type: unspecified Qualified Code(s): N17.9 - Acute kidney failure, unspecified
[2022-02-06] MEDS: INSULIN ASPART PER UNIT SC SCH ×4 (08:50→21:19)
[2022-02-06] MEDS: FOLIC ACID 1 MG TAB PO SCH (08:52)
[2022-02-06] MEDS: PANTOprazole 40 MG TAB PO SCH (08:52)
[2022-02-06] MEDS: ursodioL 300 MG CAP PO SCH ×2 (08:52→17:30)
[2022-02-06] MEDS: METOPROLOL TARTRATE 50 MG TAB PO SCH (08:52)
[2022-02-06] MEDS: CEROVITE ADV FORMULA TAB PO SCH ×2 (08:53→21:19)
[2022-02-06] MEDS: FINASTERIDE 5 MG TAB PO SCH (08:53)
[2022-02-06] MEDS: SACCHAROMYCES BOULARDII 250 MG CAP PO SCH (08:53)
[2022-02-06] MEDS: ALFUZOSIN HCL 10 MG TAB PO SCH (08:53)
[2022-02-06] MEDS: SODIUM BICARBONATE 8.4% 150 MEQ in DEXTROSE 5% 1,000 ML IV SCH ×2 (08:58→17:30)
[2022-02-06] MEDS ORDERED: FUROSEMIDE 40 MG/4 ML VIAL IV ONE (09:00)
[2022-02-06 10:08] LABS: Base Excess VBG -7.7 mEq/L; HCO3 VBG 16 mmol/L; Oxygen Saturation VBG 92.3 %; PCO2 VBG 29 mmHg (38-50); PO2 VBG 59 mmHg; pH VBG 7.36 (7.36-7.41)
--- NOTE | 2022-02-06 10:42 | CT Scan Report ---
CT SCAN OF THE ABDOMEN AND PELVIS WITHOUT IV CONTRAST CLINICAL HISTORY: Generalized abdominal pain. Elevated hepatic transaminases. COMPARISON STUDY: Abdominal CT dated 02/04/2022. MRCP dated 02/05/2022. TECHNIQUE: CT scan of the abdomen and pelvis is performed from the lung bases to the proximal femora. Images are reviewed in the axial, sagittal, and coronal planes. IV contrast was not administered for this examination as per the referring clinician. Note that the examination was performed in signific antly suboptimal fashion without oral and IV contrast. A dose lowering technique was utilized adherin g to the principles of ALARA. CT DOSE: 933.03 mGycm FINDINGS: Lung bases: The heart is enlarged and without pericardial effusion. The coronary arteries are densely calcified. There are small pleural effusions with dependent atelectasis. Liver: The unenhanced liver is cirrhotic in morphology and heterogeneous in attenuation. There is nod ularity of the hepatic surface contour. Periportal edema is observed and there is pneumobilia. There is no significant intrahepatic biliary ductal dilatation. The common bile duct is dilated, measuring up to 14 mm. There is unchanged wall thickening of the common bile duct with intraluminal gas. Gallbladder: Surgically absent. Spleen: The spleen is markedly enlarged, measuring 21 cm in length. Pancreas: The unenhanced pancreas is atrophic and grossly unremarkable. Gas is noted within the pancr eatic duct. Adrenal glands: Unremarkable. Kidneys: The unenhanced kidneys are atrophic and without hydronephrosis. There are no renal calculi i dentified. There is no evidence of contour deforming renal mass lesion. Abdominal vasculature: The abdominal aorta is normal in course and caliber noting moderate to advance d atherosclerotic calcification. Bowel: There is postoperative change from proctocolectomy with left lower quadrant ileostomy. A large parastomal hernia contains nonobstructed small bowel loops. A small bowel containing hernia in the r ight abdominal wall is seen on image #227. There is mild diffuse distention of the small bowel with s cattered air-fluid levels. No high-grade obstruction is seen. Peritoneum: There is a small volume of abdominopelvic ascites. No intraperitoneal free air is seen. Lymphadenopathy: Mildly enlarged upper abdominal and cardiophrenic lymph nodes are similar to previou s and likely related to chronic liver disease. Pelvic viscera: The bladder is decompressed around a Banks catheter and not well evaluated. Foci of i ntraluminal gas are likely related to instrumentation. The prostate gland is diminutive and heterogen eous. There are small bilateral fat-containing inguinal hernias. Skeletal structures: The skeletal structures are osteopenic. Chronic compression deformities of T12, L2, and L4 are similar to previous. There is lumbosacral spondylosis. No lytic or blastic lesions are seen. There are healed right-sided rib fractures. IMPRESSION: 1. Significantly suboptimal examination without oral and IV contrast. 2. The liver is cirrhotic in morphology and heterogeneous in attenuation. 3. There is a small volume of abdominopelvic ascites and small pleural effusions. These have increase d as compared 02/04/2022. 4. Marked splenomegaly. 5. There is postoperative change from proctocolectomy with left lower quadrant ileostomy. 6. A large parastomal hernia contains small bowel loops. A small bowel containing hernia is also seen in the right mid abdomen. 7. There is mild diffuse distention of the small bowel loops with scattered air-fluid levels. No reyes sition point is identified and there is no evidence of high-grade obstruction. Correlate clinically f or evidence of a nonspecific enteritis or possibly ileus. 8. Chronic wall thickening the common bile duct is similar to previous. Ascending cholangitis would b e impossible to exclude and clinical correlation will be essential. 9. Additional findings as above.. ACT 112: Negative or not required by law. Electronically signed by: Bernardino Hernandez M.D. 02/06/2022 10:40 AM
--- NOTE | 2022-02-06 10:59 | Communication Note ---
Date of Service: February 06, 2022 Patient is an 81 yo male with PSC. His bilirubin is increasing and currently is 7.5. D bili is 5.5. AST 59. ALT 34. Alk phos is elevated at 181. He is on Ursodiol. He is on broad spectrum antibiotics due to his multiple medical issues while hospitalized including PSC and his urologic problems. His kidney function is worsening. He had an MRCP on 02/05/2022 that was severely compromised due to motion artifact. At this time, due to his worsening clinical picture and conversation with primary team and other consultants, I believe patient would most benefit from transfer to a tertiary facility where ERCP services are available. Would ideally prefer [facility] due to his established relationship with his long-term director of blood Dr. Mcclellan. In the interim, I would advise continuation of Ursodiol & antibiotics.
[2022-02-06] MEDS ORDERED: PATIROMER CALCIUM SORBITEX 8.4 GM PACK PO ONE (11:00)
[2022-02-06] MEDS: CEFEPIME 1,000 MG in SYRINGE 0 ML IV SCH (11:57)
[2022-02-06] MEDS ORDERED: DAPTOmycin 425 MG in SYRINGE 0 ML IV SCH (14:00)
[2022-02-06 15:16] LABS: BUN Creatinine Ratio 17.3 (10-20); Calcium 7.7 mg/dl (8.5-10.1); Creatinine Clr Calc Pharmacy 15.3 ml/min; Est GFR (African American) 15.1 ml/min; Potassium 5.3 mmol/L (3.5-5.1)
[2022-02-06] MEDS ORDERED: PROCHLORPERAZINE 5 MG in SYRINGE 4 ML IV PRN (17:00)
--- NOTE | 2022-02-06 18:04 | Urology Progress Note ---
Date of Service February 06, 2022 Assessment & Plan (1) Cellulitis of penis: (2) Acute renal failure: (3) Urethral stricture: Plan Penile swelling seems to be improving today with antibiotics and maintaining his catheter. Would recommend maintaining the catheter and would hold off on any urologic intervention for now. He should continue broad-spectrum antibiotics while awaiting culture results. I do not appreciate any areas that require debridement on examination. His Banks catheter continues to drain well, therefore obstruction seems unlikely to be the cause of his worsening renal function. If creatinine is still trending up it may be worth considering renal ultrasound to assess for any hydronephrosis. It seems unlikely that he will be discharged to the point where he is able to get back to [place] for his appointments on 02/08 given his worsening renal function and abdominal pain consistent with cholangitis. If possible I think would be helpful to have an ID consultation. If his condition is not improving, it may be worth considering transfer to a tertiary center such as [place] where his work-up could be completed while inpatient. Admission and Anticipated Discharge Date Admission Date: February 04, 2022 Subjective 81-year-old male with complex urologic history. Currently with urethral stricture s/p TURP and bladder stone removal in 2019, following with [place] urology and reconstructive specialist. Has been having ongoing recurrent UTIs, with further work-up being planned at [facility], unfortunately delayed after an infection associated with recent catheter exchange. Catheter continues to drain well, urine remains clear. He is having decreased drainage of purulent material around the catheter. His reports that the swelling in the penis and scrotum has gone down significantly. Unfortunately he has new abdominal pain consistent with known history of cholangitis. No leukocytosis (WBC 6.70) Creatinine is trending up (was 2.36 on admission, up to 3.99) Review of Systems Review of Systems: 14 point review of systems negative except for otherwise indicated. Physical Exam Physical Exam: Frail appearing, uncomfortable in bed Gastrointestinal (Abdomen): Tender to palpation, large abdominal hernia near his ileostomy on the left side. Genitourinary: Penis with orthotopic meatus, Banks catheter in good position. Catheter is draining clear yellow urine. Minimal drainage alongside the catheter. No crepitus or fluctuance appreciated on the penis or scrotum. The testicles are tender to palpation. There is minimal scrotal edema. Results & Data ([facility]) Vital Signs (Past 12 Hours) Vital Signs Temp Pulse Pulse Pulse Resp BP Pulse Ox 02/06/22 15:40 91 02/06/22 15:35 36.4 C L 74 22 115/66 86 L 02/06/22 15:19 72 02/06/22 11:25 36.5 C 24 L 62 112/58 L 90 02/06/22 07:30 02/06/22 07:59 36.5 C 77 22 127/56 L 91 O2 Del Method 02/06/22 15:40 Room Air 02/06/22 15:35 Room Air 02/06/22 15:19 02/06/22 11:25 Room Air 02/06/22 07:30 Room Air 02/06/22 07:59 Room Air PG Care Time/CCT Total # of Minutes Spent Total Time Spent with Patient: Total time spent is greater than 50% in coordination of care (as documented) at patient's floor/unit and/or counseling patient: Coding Level of Care Code 44640 Subseq Obs Care Lvl 2 Diagnoses Cellulitis of penis N48.22 Acute renal failure N17.9 Acute renal failure type: unspecified Urethral stricture N35.919 (1) Acute renal failure Acute renal failure type: unspecified Qualified Code(s): N17.9 - Acute kidney failure, unspecified
[2022-02-06 19:49] LABS: Albumin Globulin Ratio 0.9 (0.9-2); Albumin Level 2.4 gm/dl (3.4-5.0); BUN Creatinine Ratio 17.4 (10-20); Bilirubin,Total 7.5 mg/dl (0.2-1.0); Calcium 7.7 mg/dl (8.5-10.1); Creatinine Clr Calc Pharmacy 15.4 ml/min; Est GFR (African American) 15.2 ml/min; Est GFR (Non-African American) 13.1 ml/min; Globulin 2.7 gm/dl (2.5-4.0); Potassium 4.9 mmol/L (3.5-5.1); Total Protein 5.1 gm/dl (6.0-8.3)
[2022-02-06] MEDS: MELATONIN 3 MG TAB PO SCH (21:19)
[2022-02-06] MEDS: METOPROLOL TARTRATE 25 MG TAB PO SCH (21:19)
--- NOTE | 2022-02-06 21:55 | Hospitalist Progress Note ---
Date of Service February 06, 2022 Assessment & Plan (1) Recurrent UTI (urinary tract infection): Plan: - UA with nitrites, leuko esterase, WBCs. Urine and blood cultures ordered, pending. -With suspected abscesses in the penis as per recent Urology notes - Due to prior urine cultures which grew MRSA, patient started on cefepime and daptomycin in ED, will continue these while waiting for cultures to result. -Holding home fluconazole due to worsening liver failure -Follows with infectious disease at [place] and has an appointment for this Friday On 02/06 Had multiple discussions with his . Initially called [facility] for transfer. As no call back, called the office of patient's GI. however, Dr. Mcclellan is on vacation. His then agreed to transfer to [place] Discussed case with GI, who did nt recommend ERCP as this may be hepatorenal syn drome. However, hospitalist dice person Dr. Hernandez agreed to accept patient. Plan is also for Urology to followup with patient in house due to urethral stricture. Once transfer was accpeted, patient and were no longer agreeable to transfer as this was too late in the day. She also feels that he looks better and more calm in the afternoon and evening. She is concerned that moving him may make things worse. Had extensive talk with patient over multiple visits after 7pm and 8 pm. Explained that Urology, GI here recommend transfer. The Hospitalist at [place] also agrees with transfer. I am recommending transfer due to possibility of Urological procedures that may need to be done. If patient is not transferred overnight, he will lose the bed, and the process sofie have to be started from scratch. There is no guarantee that patient will have a bed tomorrow. Family and patient understood but do not consent to transfer. (2) Urethral stricture: Plan: - Patient identified to have a near complete occlusion at the mid to proximal urethra in September. He has had several chronic Banks's in place, as well as been on several different antibiotics for chronic Krys infections. - Primarily sees Dr. Allison with [facility] [place], as well as [facility] urology group. There is induration at the proximal penile distal bulbar urethra. MRI performed at [facility] was read as multiloculated abscesses. Patient's case is being reviewed by urologist at [facility] that performs reconstructive surgery. It is indicated in most recent urology note that they are recommending patient have a biopsy of the area due to concerns for urethral cancer. -Continue catheter currently in place, emptying without complications. - Consult Urology for additional assistance, appreciate their recommendations. -With penile and scrotal swelling-question if related to infection? 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 Follows with [facility] in [place]. Routine ERCPs q3 months, however has not had one since May 2021. Next due for this at the end of summer. - T bili elevated at 7.0, D bili 5.2. Alk phos at baseline, AST and ALT WNL. -Has been on fluconazole for approximately 8 weeks which may be contributing - CT A/P showed unchanged CBD wall thickening, unchanged cirrhosis of liver, pneumobilia noted. Pnc-prur-wvkp heterogeneity within portions lumbar are similar to prior exams. No well-defined masses present. Splenomegaly is increased. - We will check ammonia level with p.m. BMP due to complaints of fatigue. - GI consult placed, appreciate their recommendations. -Okay to use Tylenol but no more than 2000 mg daily -Follow LFTs, INR, CBC in the morning -Statin on hold -Continue ursodiol -bilirubin continues to worsen. (4) Acute renal failure: Plan: - Cr 2.36, GFR 25.6, severely reduced from baseline. Likely due to infection. No signs of obstruction on imaging. appreciate input from Nephro. Continue gentle IV fluids with bicarb. Awaiting cultures -Urinalysis with evidence of infection as well as with blood and protein, no casts - IVF. Correct electrolytes as described above. - Avoid nephrotoxins, renally dose medications as able. -Maintain Banks catheter which is draining -Hold home diclofenac, Augmentin (5) Hyperkalemia: Plan: - 5.7 on BMP on presentation, POC 5.9. EKG without peaked T waves. patient started on insulin with D50 and sodium bicarb in ED, as well as receiving 2L NS boluses. - Calcium gluconate ordered, patient also with hypocalcemia, Ca++ 7.0. - Repeat potassium later in the afternoon down to 5.3. - Repeat BMP in the morning -Give 1 L of isotonic sodium bicarbonate drip at 80 mils per hour overnight -Giving more insulin for hyperglycemia -Low potassium diet -Give 1 dose of Veltassa -Monitor on telemetry for arrhythmia On 02/06 Improving. (6) Type 2 diabetes mellitus: Plan: With hyperglycemia here after getting D50 in the ER as part of his treatment for hyperkalemia Start Accu-Cheks AC at bedtime, NovoLog sliding scale Give regular insulin 5 units again now for persistent hyperkalemia and for hyperglycemia Check hemoglobin A1c in the morning-last was 6.5% 3 months ago Not on medications at home (7) Hyponatremia: Plan: - 127 on BMP, POC 130. Suspect due to minimal/no PO intake over the past 5 days as well as acute kidney injury. - IVF ordered as well as bicarb gtt. -Follow BMP (8) Thrombocytopenia: Plan: - PLTs 30k today, baseline ~50-70. - Suspect they are low from worsening splenomegaly, cirrhosis. - Monitor on AM labs. -Hold any blood thinners to include aspirin, and his home diclofenac (9) Anemia: Plan: - 9.0, macrocytic Near pt's baseline. Has an upcoming iron transfusion. Takes daily folic acid - No evidence of acute bleeding. Will monitor on daily CBC. (10) CAD (coronary artery disease): Plan: Holding home aspirin due to thrombocytopenia, hold home statin due to LFT elevation Okay to continue metoprolol with hold parameters (11) Abnormal chest x-ray: Plan: A new 1.7 cm irregular density within the periphery of the right midlung zone. This could represent a pulmonary nodule. Therefore, follow-up nonemergent chest CT is recommended for further evaluation. Follow-up as outpatient Made referral to pulmonary nodule clinic (12) Cirrhosis: Plan: Secondary to PSC as above Plan - Admitted to PCU. - SCDs for VTE ppx. Would not use chemical means due to thrombocytopenia - Full Code. Admission and Anticipated Discharge Date Admission Date: February 04, 2022 Subjective Patient in the morning had abdominal pain. Patient does not feel comfortable. Review of Systems Review of Systems: All systems reviewed & are unremarkable except as noted in HPI & below Physical Exam Physical Exam: General: awake, alert, no apparent distress Head: Normocephalic, atraumatic ENT: PERRL, EOMI, no pharyngeal exudate, mucous membranes moist Chest: Clear to auscultation, on room air, no adventitious breath sounds Cardiac: Regular rate and rhythm, no murmur, no JVD, normal peripheral pulses, good capillary refill Abdominal: NABS x 4 quadrants, soft, generalized tender to palpation, no rebound, guarding or tenderness : Pain on scrotal swelling, tenderness with purulent discharge noted around the catheter Extremities: Bilateral lower extremity erythema consistent with patient baseline; otherwise normal inspection, no peripheral edema or erythema, calfs nontender to palpation Psych: Normal mood and affect Neuro: AAO x 3, strength intact bilaterally and rated 5/5, no motor deficits, speech is clear, no peripheral sensory deficits Skin: no rash or erythema Results & Data Results & Data ([facility]) Vital Signs (Past 12 Hours) Vital Signs Temp Pulse Pulse Pulse Resp BP Pulse Ox 02/06/22 20:25 36.8 C 83 20 124/62 90 02/06/22 15:40 91 02/06/22 15:35 36.4 C L 74 22 115/66 86 L 02/06/22 15:19 72 02/06/22 11:25 36.5 C 24 L 62 112/58 L 90 O2 Del Method 02/06/22 20:25 Room Air 02/06/22 15:40 Room Air 02/06/22 15:35 Room Air 02/06/22 15:19 02/06/22 11:25 Room Air PG Care Time/CCT Total # of Minutes Spent Total Time Spent with Patient: Total time spent is greater than 50% in coordination of care (as documented) at patient's floor/unit and/or counseling patient: Prolonged Care Time Prolonged Care Time: Yes (180 minutes) 8:00 to 8:30 10:15 to 10:45 12:00 to 12:10 14:00 to 14:20 16:00 to 16:30 17:00 to 17:30 19:20 to 19:40 20:00 to 20:20 Coding Level of Care Code 21080 Subseq Hosp Care Lvl 3 (25 - SIGNIFICANT, SEPARATELY IDENTIFIABLE ) Diagnoses Recurrent UTI (urinary tract infection) N39.0 Urethral stricture N35.919 Primary sclerosing cholangitis K83.0 Acute renal failure N17.9 Hyperkalemia E87.5 Type 2 diabetes mellitus E11.65 Diabetes mellitus complication status: with hyperglycemia Diabetes mellitus senior care insulin use: without senior care use Hyponatremia E87.1 Thrombocytopenia D69.6 Anemia D64.9 CAD (coronary artery disease) I25.10 Abnormal chest x-ray R93.89 Cirrhosis K74.60 Additional Codes Prolonged Care Time - Prolonged Care Time: Yes ([id number]) (1) Type 2 diabetes mellitus Diabetes mellitus complication status: with hyperglycemia Diabetes mellitus senior care insulin use: without senior care use Qualified Code(s): E11.65 - Type 2 diabetes mellitus with hyperglycemia
[2022-02-07] MEDS: ACETAMINOPHEN 325 MG TAB PO PRN (00:14)
[2022-02-07 07:16] LABS: BUN Creatinine Ratio 16.1 (10-20); Calcium 8.2 mg/dl (8.5-10.1); Creatinine Clr Calc Pharmacy 13.8 ml/min; Est GFR (African American) 13.4 ml/min; Est GFR (Non-African American) 11.6 ml/min; Potassium 4.9 mmol/L (3.5-5.1)
[2022-02-07 08:45] LABS: Albumin Level 2.6 gm/dl (3.4-5.0); Bilirubin Direct 5.7 mg/dl (0-0.2); Total Protein 5.4 gm/dl (6.0-8.3)
--- NOTE | 2022-02-07 09:19 | Nephrology Progress Note ---
Date of Service February 07, 2022 Assessment & Plan (1) Acute renal failure: Plan: * Nonoliguric FORTUNATO/CKD due to infection/cellulitis. Agree w/ providing broad spectrum antibiotics. Monitor for fungal infection and huan's gangrene. No obstruction/hydronephrosis reported on 02/04/[address] Urine microscopy is negative for ATN casts. NSAIDS have been stopped. Expect kidney function to stabilize as infection is controlled * Hyperkalemia has resolved * Patient has mild metabolic acidosis and remains clinically volume contracted. Will provide hydration w/ NaHCO3 containing solution (2) Chronic kidney disease with active medical management without dialysis, stage 2 (mild): Plan: * Baseline Cr 0.8 w/ EGFR 80 cc/min (3) Cellulitis of penis: (4) Sclerosing cholangitis: (5) Abdominal hernia: Admission and Anticipated Discharge Date Admission Date: February 04, 2022 Subjective Mr. Tesfaye was evaluated in his hospital room this morning. His was present at bedside. Mr. Tesfaye c/o discomfort from his Banks catheter and pruritus associated w/ his liver disease Review of Systems Constitutional: no fever Eyes: no problem reported Ear, Nose, Mouth, Throat: no problem reported Respiratory: no dyspnea Cardiovascular: no chest pain Gastrointestinal: + abdominal pain; no diarrhea/loose stools Genitourinary: + genital pain and + scrotal swelling Physical Exam Constitutional: not in distress Eyes: PERRL; sclerae not anicteric ENMT: external ear and nose normal, oropharynx normal Neck: trachea midline, no thyromegaly Respiratory: normal respiratory effort, lungs clear to auscultation Cardiovascular: RRR, no murmur, no edema Gastrointestinal (Abdomen): Inspection/Auscultation: normal bowel sounds Percussion/Palpation: + abdomen tender (LLQ large hernia is tender to palpation) and abdomen soft; no guarding Neurologic: awake; not confused Results & Data ([facility]) Vital Signs (Past 12 Hours) Vital Signs Temp Pulse Pulse Pulse Resp BP Pulse Ox 02/07/22 07:00 75 02/07/22 07:15 36.4 C L 71 18 101/54 L 87 L 02/07/22 04:30 37 C 76 20 116/64 91 02/06/22 23:12 67 02/06/22 22:57 37.0 C 69 17 104/44 L 90 O2 Del Method 02/07/22 07:00 02/07/22 07:15 Room Air 02/07/22 04:30 Room Air 02/06/22 23:12 02/06/22 22:57 Room Air Laboratory Results Laboratory Tests 10/05/20 02/07/22 02/07/22 07:12 05:47 05:47 Sodium 125 L Potassium 4.9 Chloride 93 L Carbon Dioxide 20 L BUN 71 H Creatinine 4.40 H D Glucose 190 H Total Bilirubin 1.3 H 8.0 H AST 71 H ALT 42 Alkaline Phosphatase 208 H Albumin 2.6 L Diagnostic Findings 02/06/[address]: 1. Significantly suboptimal examination without oral and IV contrast. 2. The liver is cirrhotic in morphology and heterogeneous in attenuation. 3. There is a small volume of abdominopelvic ascites and small pleural effusions. These have increased as compared 02/04/2022. 4. Marked splenomegaly. 5. There is postoperative change from proctocolectomy with left lower quadrant ileostomy. 6. A large parastomal hernia contains small bowel loops. A small bowel containing hernia is also seen in the right mid abdomen. 7. There is mild diffuse distention of the small bowel loops with scattered air- fluid levels. No transition point is identified and there is no evidence of high-grade obstruction. Correlate clinically for evidence of a nonspecific enteritis or possibly ileus. 8. Chronic wall thickening the common bile duct is similar to previous. Ascending cholangitis would be impossible to exclude and clinical correlation will be essential. 9. Additional findings as above 02/05/22 MRCP: 1. Severely motion compromised examination. 2. Status post cholecystectomy. 3. The common bile duct is not visualized, likely due to gas within the common duct seen on the recent abdominal CT. 4. The morphology of the intrahepatic ducts cannot be evaluated due to motion artifact. 5. Cirrhotic liver morphology and marked splenomegaly. 6. Trace abdominal ascites. 7. Trace pleural effusions with dependent consolidation. PG Care Time/CCT Total # of Minutes Spent Total Time Spent with Patient: Total time spent is greater than 50% in coordination of care (as documented) at patient's floor/unit and/or counseling patient: Coding Level of Care Code 86905 Subseq Hosp Care Lvl 3 Diagnoses Acute renal failure N17.9 Acute renal failure type: unspecified Chronic kidney disease with active medical management without dialysis, stage 2 (mild) N18.2 Cellulitis of penis N48.22 Sclerosing cholangitis K83.09 Abdominal hernia K46.9 (1) Acute renal failure Acute renal failure type: unspecified Qualified Code(s): N17.9 - Acute kidney failure, unspecified
[2022-02-07] MEDS: INSULIN ASPART PER UNIT SC SCH ×4 (09:32→21:21)
[2022-02-07] MEDS: ALFUZOSIN HCL 10 MG TAB PO SCH (09:36)
[2022-02-07] MEDS: FOLIC ACID 1 MG TAB PO SCH (09:36)
[2022-02-07] MEDS: PANTOprazole 40 MG TAB PO SCH (09:36)
[2022-02-07] MEDS: ursodioL 300 MG CAP PO SCH ×2 (09:36→17:18)
[2022-02-07] MEDS: CEROVITE ADV FORMULA TAB PO SCH ×2 (09:36→21:22)
[2022-02-07] MEDS: FINASTERIDE 5 MG TAB PO SCH (09:36)
[2022-02-07] MEDS: METOPROLOL TARTRATE 50 MG TAB PO SCH (09:36)
[2022-02-07] MEDS: SACCHAROMYCES BOULARDII 250 MG CAP PO SCH (09:36)
[2022-02-07] MEDS: ONDANSETRON INJ 2 MG/ML 2 ML VIAL IV PRN (13:00)
[2022-02-07] MEDS: SODIUM BICARBONATE 8.4% 150 MEQ in DEXTROSE 5% 1,000 ML IV SCH (13:17)
[2022-02-07] MEDS: CEFEPIME 1,000 MG in SYRINGE 0 ML IV SCH (13:17)
--- NOTE | 2022-02-07 14:23 | Discharge Summary ---
Date of Service February 07, 2022 Admission HPI Per Admitting Provider Jordy Tesfaye is an 81-year-old male with past medical history significant for ulcerative colitis s/p ileostomy, primary sclerosing cholangitis, CAD, and urinary stricture with extensive urological evaluations and procedures who presents today from home feeling generally unwell. 5 days ago, on 01/31 patient had a urology appointment at [facility]. At this time, his catheter was replaced, and procedure to visualize the urethra was done, which revealed a previously known urethral laceration had become more shallow, however extended in length. He also had worsening swelling of his penis then, which is currently in the process of being evaluated for urethral cancer. Since the procedure, patient has felt generally unwell. He is very fatigued, has no appetite, and feels generally achy, with some increase in RUQ pain. He denies fever chills, night sweats, chest pain, shortness of breath, no pain with urination. He has been on several antibiotics for extended periods of time since the beginning of November. Seems that he was on fluconazole as well as Augmentin for about 6 weeks from the beginning of November until around December 25, at which time he was taken off both of these. However, a UA was collected on 01/16, which once again grew yeast. Therefore, he had been placed back on fluconazole and has been taking this for approximately 1 week now. He had also been placed on Macrodantin intermittently at some point, presumably after the fluconazole had been stopped, however he and his are unsure of the exact timeframe. In ED, he is mildly hypotensive, otherwise VS wnl. Labs significant for renal failure with BUN of 60, CR 2.28 (baseline 0.70.8), bicarb 13, potassium 5.7, sodium 127, calcium 7.0, ionized 1.04. T bili 7.0, direct bili 5.2, alk phos 125. WBC within normal limits, however PCT 2.77, platelet count 30, Hgb 9.0. UA with nitrites, leuk esterase, and WBCs, however no bacteria or yeast. COVID- negative. CT A/P showed bladder wall thickening with infiltration adjacent to the bladder, seminal vesicles, prostate, as well as cirrhosis and increasing splenomegaly with trace ascites, LLQ ileostomy and large parastomal hernia with multiple small loops however no evidence of obstruction. Principal Diagnosis cholangitis, FORTUNATO, penile cellulitis Discharge Exam The patient is awake, alert and oriented 3, well developed and well nourished, normocephalic and atraumatic, lying in bed and in no acute distress. HEENT--PERRL, EOMI, mucous membranes and oropharynx mildly dry Neck--supple. No JVD. No bruits. Thyroid normal, trachea midline, no adenopathy. Heart--normal S1 and S2. No murmurs, rubs or gallops. Lungs--clear bilaterally, no respiratory distress, no accessory muscle use. Abdomen--normal bowel sounds and soft. Mild epigastric and left sided abdominal pain Extremities--no cyanosis or clubbing. No edema. Dermatologic--normal skin turgor, normal color, no abnormal lymph nodes, no rash. Neurologic--cranial nerves II through XII grossly intact. Rheumatologic--normal range of motion. Psychiatric--normal affect. Discharge Data Allergies Allergy/AdvReac Type Severity Reaction Status Date / Time Egg Derived Allergy Intermediate RASH WITH Verified 02/04/22 15:01 LARGE QUANTITIES metformin Allergy Intermediate GI ISSUES Verified 02/04/22 15:01 pollen extracts Allergy Intermediate ITCHY Verified 02/04/22 15:01 EYES, SNEEZING, CONGESTION codeine AdvReac Intermediate N/V, Verified 02/04/22 15:01 HYPOTENSTION fentanyl AdvReac Intermediate EXTREME Verified 02/04/22 15:01 NAUSEA; BP DROPS meperidine AdvReac Intermediate N/V, Verified 02/04/22 15:01 HYPOTENSTION morphine AdvReac Intermediate N/V, Verified 02/04/22 15:01 HYPOTENSTION Flu Virus Vaccine Allergy Intermediate AVOIDS DUE Uncoded 02/04/22 15:01 TO EGG ALLERGY NARCOTICS AdvReac Intermediate N/V, Uncoded 02/04/22 15:01 HYPOTENSTION Consultations 02/04/22 14:14 ED Decision to Admit Stat 02/04/22 16:40 Consult Urology Routine 02/04/22 16:45 Consult Nephrology Routine 02/04/22 20:02 Consult Gastroenterology Routine 02/04/22 21:44 Consult Lung Nodule Program Routine Ordered Studies 02/04/22 11:49 CT abd pelvis wo con Stat 02/05/22 10:29 MR MRCP Routine 02/06/22 09:29 CT abd pelvis wo con Urgent Hospital Course (1) Recurrent UTI (urinary tract infection): - UA with nitrites, leuko esterase, WBCs. Urine and blood cultures ordered, pending. -With suspected abscesses in the penis as per recent Urology notes - Due to prior urine cultures which grew MRSA, patient started on cefepime and daptomycin in ED, will continue these while waiting for cultures to result. -Holding home fluconazole due to worsening liver failure -Follows with infectious disease at [facility] and has an appointment for this Friday On 02/06 Had multiple discussions with his . Initially called [facility] for transfer. As no call back, called the office of patient's GI. however, Dr. Mcclellan is on vacation. His then agreed to transfer to [facility] Discussed case with GI, who did nt recommend ERCP as this may be hepatorenal syndrome. However, hospitalist labour market economist Dr. Hernandez agreed to accept patient. Plan is also for Urology to followup with patient in house due to urethral stricture. Once transfer was accpeted, patient and were no longer agreeable to transfer as this was too late in the day. She also feels that he looks better and more calm in the afternoon and evening. She is concerned that moving him may make things worse. Had extensive talk with patient over multiple visits after 7pm and 8 pm. Explained that Urology, GI here recommend transfer. The Hospitalist at [facility] also agrees with transfer. I am recommending transfer due to possibility of Urological procedures that may need to be done. If patient is not transferred overnight, he will lose the bed, and the process sofie have to be started from scratch. There is no guarantee that patient will have a bed tomorrow. Family and patient understood but do not consent to transfer. (2) Urethral stricture: - Patient identified to have a near complete occlusion at the mid to proximal urethra in September. He has had several chronic Banks's in place, as well as been on several different antibiotics for chronic Krys infections. - Primarily [place]. Allison [place] [facility] [place], as well as [facility] [place] group. There is induration at the proximal penile distal bulbar urethra. MRI performed at [facility] was read as multiloculated abscesses. Patient's case is being reviewed by urologist at [facility] that performs reconstructive surgery. It is indicated in most recent urology note that they are recommending patient have a biopsy of the area due to concerns for urethral cancer. -Continue catheter currently in place, emptying without complications. - Consult Urology for additional assistance, appreciate their recommendations. -With penile and scrotal swelling-question if related to infection? Also with erosion of the glans-his urologist is aware of this and suggest ways to offload pressure from the catheter on the penis -Tylenol as needed for pain -Urology is recommending transfer to tertiary center ([facility]) (3) Primary sclerosing cholangitis: - Longstanding diagnosis, with resulting cirrhosis. Follows with [facility] in [place]. Routine ERCPs q3 months, however has not had one since May 2021. Next due for this at the end of summer. - T bili elevated at 7.0, D bili 5.2. Alk phos at baseline, AST and ALT WNL. -Has been on fluconazole for approximately 8 weeks which may be contributing - CT A/P showed unchanged CBD wall thickening, unchanged cirrhosis of liver, pneumobilia noted. [id number] heterogeneity within portions lumbar are similar to prior exams. No well-defined masses present. Splenomegaly is increased. - We will check ammonia level with p.m. BMP due to complaints of fatigue. - GI consult placed, appreciate their recommendations. -Okay to use Tylenol but no more than 2000 mg daily -Follow LFTs, INR, CBC in the morning -Statin on hold -Continue ursodiol -bilirubin continues to worsen. (4) Acute renal failure: - Cr 2.36, GFR 25.6, severely reduced from baseline. Likely due to infection. No signs of obstruction on imaging. appreciate input from Nephro. Continue gentle IV fluids with bicarb. Awaiting cultures -Urinalysis with evidence of infection as well as with blood and protein, no casts - IVF. Correct electrolytes as described above. - Avoid nephrotoxins, renally dose medications as able. -Maintain Banks catheter which is draining -Hold home diclofenac, Augmentin (5) Hyperkalemia: - 5.7 on BMP on presentation, POC 5.9. EKG without peaked T waves. patient started on insulin with D50 and sodium bicarb in ED, as well as receiving 2L NS boluses. - Calcium gluconate ordered, patient also with hypocalcemia, Ca++ 7.0. - Repeat potassium later in the afternoon down to 5.3. - Repeat BMP in the morning -Give 1 L of isotonic sodium bicarbonate drip at 80 mils per hour overnight -Giving more insulin for hyperglycemia -Low potassium diet -Give 1 dose of Veltassa -Monitor on telemetry for arrhythmia On 02/06 Improving. (6) Type 2 diabetes mellitus: With hyperglycemia here after getting D50 in the ER as part of his treatment for hyperkalemia Start Accu-Cheks AC at bedtime, NovoLog sliding scale Give regular insulin 5 units again now for persistent hyperkalemia and for hyperglycemia Check hemoglobin A1c in the morning-last was 6.5% 3 months ago Not on medications at home (7) Hyponatremia: - 127 on BMP, POC 130. Suspect due to minimal/no PO intake over the past 5 days as well as acute kidney injury. - IVF ordered as well as bicarb gtt. -Follow BMP (8) Thrombocytopenia: - PLTs 30k today, baseline ~50-70. - Suspect they are low from worsening splenomegaly, cirrhosis. - Monitor on AM labs. -Hold any blood thinners to include aspirin, and his home diclofenac (9) Anemia: - 9.0, macrocytic Near pt's baseline. Has an upcoming iron transfusion. Takes daily folic acid - No evidence of acute bleeding. Will monitor on daily CBC. (10) CAD (coronary artery disease): Holding home aspirin due to thrombocytopenia, hold home statin due to LFT elevation Okay to continue metoprolol with hold parameters (11) Abnormal chest x-ray: A new 1.7 cm irregular density within the periphery of the right midlung zone. This could represent a pulmonary nodule. Therefore, follow-up nonemergent chest CT is recommended for further evaluation. Follow-up as outpatient Made referral to pulmonary nodule clinic (12) Cirrhosis: Secondary to PSC as above Plan - Transfer to [facility] for VTE ppx. Would not use chemical means due to thrombocytopenia - Full Code. Total Time Total Time Spent Total Time Spent (In Minutes): 35 Discharge Plan Discharge Items Patient Disposition: Transfer Acute Care Hospital Reason For Visit: INFECTION IN PENIS AND SCROTUM Discharge Diagnosis: cholangitis, FORTUNATO, penile cellulitis Activity: Resume your previous activity Non-emergency contact: Primary Care Provider and Urologist Call non-emergency contact if: you have any medication questions Follow-up/Referrals: Rupinder,Tom, MD [Primary Care Provider] - Diet: Regular Addtl Attending Provider Instructions: please make arrangements to follow up with your regular doctors Pending Studies at Discharge: No Stand-Alone Forms: My [facility] Skilled Items Patient informed of condition?: Yes DNR: No Discharge Level of Care: Other Communicable Disease: No Discharge Prognosis: Stable Lines: None Urinary Catheter: Yes Medications and DC Order Prescriptions: Continued amoxicillin-pot clavulanate [Augmentin] 500-125 mg tablet 1 tab PO BID 6 Days Qty: 20 0RF Rx Instructions: STARTED 02/02/22 fluconazole [Diflucan] 100 mg tablet 200 mg PO DAILY 10 Days Qty: 20 0RF Rx Instructions: STARTED ABOUT A WEEK AGO, PER SPOUSE. aspirin 81 mg tablet,delayed release (DR/EC) 81 mg PO DAILY omeprazole 20 mg capsule,delayed release(DR/EC) 20 mg PO DAILY diclofenac sodium 75 mg tablet,delayed release (DR/EC) 75 mg PO DAILY rosuvastatin 10 mg tablet 10 mg PO DAILY alfuzosin 10 mg tablet extended release 24 hr 10 mg PO DAILY Rx Instructions: administer after the same meal each day folic acid 1 mg tablet 1 mg PO QAM alendronate [Fosamax] 70 mg Tablet 70 mg PO WK Label Comments: TAKES ON FRI. Rx Instructions: WEDNESDAYS ursodiol 300 mg Capsule 300 mg PO BIDM allopurinol 300 mg Tablet 300 mg PO QAM finasteride [Proscar] 5 mg Tablet 5 mg PO QAM magnesium oxide 400 mg magnesium Tablet 400 mg PO QAM meclizine [Medi-Meclizine] 25 mg Tablet 25 mg PO TID PRN (Reason: Vertigo) cranberry 500 mg Capsule 500 mg PO QAM loratadine [Claritin] 10 mg Tablet 10 mg PO QAM PRN (Reason: Congestion) misoprostol [Cytotec] 100 mcg Tablet 200 mcg PO QAM Ocutabs Tablet 1 tab PO BID calcium carbonate-vitamin D3 [Calcium 500 + D] 500 mg(1,250mg) -200 unit Tablet 1 tab PO QAM omega 9-pfu-mvd-fish oil [Fish Oil] 1,000 mg (120 mg-180 mg) Capsule 1 cap PO QID metoprolol tartrate 25 mg Tablet 75 mg PO QPM Qty: 90 0RF Saccharomyces boulardii [Florastor] 250 mg Capsule 250 mg PO DAILY Qty: 30 0RF metoprolol tartrate [Lopressor] 100 mg tablet 50 mg PO QAM melatonin 3 mg Tablet 3 mg PO HS Discharge Orders: Discharge Order (Routine); Ordered 02/07/22 Ordered By: Sagrario Dubon Admission Data Admit Date/Time: 02/04/22 14:33 Attending Provider: Sagrario Dubon Admit Provider: Petra Martines Primary Care Provider: Tom Bucio Other Providers: Petra Martines ; Adriano Morales ; Adriano Silva ; Farhat Dodd Coding Level of Care Code D/C DAY MANAGEMENT >30 MINS Diagnoses Recurrent UTI (urinary tract infection) N39.0 Urethral stricture N35.919 Primary sclerosing cholangitis K83.0 Acute renal failure N17.9 Hyperkalemia E87.5 Type 2 diabetes mellitus E11.65 Diabetes mellitus guest services representative insulin use: without guest services representative use Diabetes mellitus complication status: with hyperglycemia Hyponatremia E87.1 Thrombocytopenia D69.6 Anemia D64.9 CAD (coronary artery disease) I25.10 Abnormal chest x-ray R93.89 Cirrhosis K74.60 Time Spent (min) 35
[2022-02-07] MEDS: METOPROLOL TARTRATE 25 MG TAB PO SCH (21:22)
[2022-02-07] MEDS: MELATONIN 3 MG TAB PO SCH (21:22)
[2022-02-08] MEDS: SODIUM BICARBONATE 8.4% 150 MEQ in DEXTROSE 5% 1,000 ML IV SCH (03:48)
[2022-02-08 07:01] LABS: Hematocrit (blood only) 28.1 % (40.1-51.0); Hemoglobin 9.9 g/dl (14.0-18.0); Mean Corpuscular Hemoglobin 33.1 pg (25.0-34.0); Mean Corpuscular Hgb Conc 35.2 g/dL (32.0-36.0); Platelet Count 65 K/uL (130-400); RDW Coefficient of Variation 16.8 % (11.5-14.5); Red Blood Count 2.99 M/uL (4.63-6.08); White Blood Count 7.42 K/ul (4.8-10.8)
[2022-02-08 07:09] LABS: Albumin Globulin Ratio 0.9 (0.9-2); Albumin Level 2.4 gm/dl (3.4-5.0); BUN Creatinine Ratio 15.1 (10-20); Bilirubin,Total 6.8 mg/dl (0.2-1.0); Calcium 8.3 mg/dl (8.5-10.1); Creatinine Clr Calc Pharmacy 11.9 ml/min; Est GFR (African American) 11.2 ml/min; Est GFR (Non-African American) 9.7 ml/min; Globulin 2.6 gm/dl (2.5-4.0); Potassium 4.8 mmol/L (3.5-5.1)
[2022-02-08] MEDS: METOPROLOL TARTRATE 50 MG TAB PO SCH (08:40)
[2022-02-08] MEDS: ALFUZOSIN HCL 10 MG TAB PO SCH (08:40)
[2022-02-08] MEDS: PANTOprazole 40 MG TAB PO SCH (08:41)
[2022-02-08] MEDS: FOLIC ACID 1 MG TAB PO SCH (08:41)
[2022-02-08] MEDS: FINASTERIDE 5 MG TAB PO SCH (08:41)
[2022-02-08] MEDS: ursodioL 300 MG CAP PO SCH (08:42)
[2022-02-08] MEDS: SACCHAROMYCES BOULARDII 250 MG CAP PO SCH (08:42)
[2022-02-08] MEDS: CEROVITE ADV FORMULA TAB PO SCH (08:43)
--- NOTE | 2022-02-08 08:49 | Nephrology Progress Note ---
Date of Service February 08, 2022 Assessment & Plan (1) Acute renal failure: Plan: * Nonoliguric FORTUNATO/CKD due to infection/cellulitis. Erythema of genitalia is markedly improved following antibiotic therapy. No obstruction/hydronephrosis reported on 02/04/[address] Urine microscopy is negative for ATN casts. NSAIDS have been stopped. Expect kidney function to stabilize as infection is controlled * Hyperkalemia has resolved * Metabolic acidosis has corrected following NaHCO3 administration * Although patient remains in injury phase of FORTUNATO, he is nonoliguric, appears clinically euvolemic and electrolyte balance is acceptable. No acute indication for HD at this time. Hopefully renal function will stabilize and improve with conservative/antibiotic therapy. Discussed w/ Mr. Tesfaye and his this morning (2) Chronic kidney disease with active medical management without dialysis, stage 2 (mild): Plan: * Baseline Cr 0.8 w/ EGFR 80 cc/min (3) Cellulitis of penis: Plan: * Improved (4) Sclerosing cholangitis: Plan: * On Daptomycin/Cefepime therapy * Bilirubin now trending down (5) Abdominal hernia: Admission and Anticipated Discharge Date Admission Date: February 04, 2022 Subjective Mr. Tesfaye was evaluated in his hospital room this morning. His was present at bedside. He reports that his pruritus is mildly improved Review of Systems Constitutional: no fever Eyes: no problem reported Ear, Nose, Mouth, Throat: no problem reported Respiratory: no dyspnea Cardiovascular: no chest pain Gastrointestinal: + abdominal pain; no diarrhea/loose stools Genitourinary: + genital pain and + scrotal swelling Physical Exam Constitutional: not in distress Eyes: PERRL (sclera appear less icteric) ENMT: external ear and nose normal, oropharynx normal Neck: trachea midline, no thyromegaly Respiratory: normal respiratory effort, lungs clear to auscultation Cardiovascular: RRR, no murmur, no edema Gastrointestinal (Abdomen): Inspection/Auscultation: normal bowel sounds P ercussion/Palpation: + abdomen tender (LLQ large hernia is tender to palpation) and abdomen soft; no guarding Neurologic: awake; not confused Genitourinary: erythema of genitalia is markedly improved Results & Data ([facility]) Vital Signs (Past 12 Hours) Vital Signs Temp Pulse Pulse Pulse Resp BP Pulse Ox 02/08/22 07:04 36.5 C 73 17 91/50 L 87 L 02/08/22 03:00 36.6 C 68 18 120/62 90 02/08/22 01:05 63 02/07/22 23:00 36.4 C L 66 18 106/61 90 O2 Del Method 02/08/22 07:04 Room Air 02/08/22 03:00 Room Air 02/08/22 01:05 02/07/22 23:00 Room Air Laboratory Results Laboratory Tests 02/05/22 02/08/22 02/08/22 07:21 06:24 06:24 WBC 7.42 Hgb 9.9 L Hct 28.1 L Plt Count 65 L INR 1.4 H Sodium 126 L Potassium 4.8 Chloride 90 L Carbon Dioxide 26 BUN 77 H Creatinine 5.10 H* D Total Bilirubin 6.8 H AST 59 H ALT 42 Alkaline Phosphatase 249 H Albumin 2.4 L PG Care Time/CCT Total # of Minutes Spent Total Time Spent with Patient: Total time spent is greater than 50% in coordination of care (as documented) at patient's floor/unit and/or counseling patient: Coding Level of Care Code 91798 Subseq Hosp Care Lv 3 Diagnoses Acute renal failure N17.9 Acute renal failure type: unspecified Chronic kidney disease with active medical management without dialysis, stage 2 (mild) N18.2 Cellulitis of penis N48.22 Sclerosing cholangitis K83.09 Abdominal hernia K46.9 (1) Acute renal failure Acute renal failure type: unspecified Qualified Code(s): N17.9 - Acute kidney failure, unspecified
[2022-02-08] MEDS: INSULIN ASPART PER UNIT SC SCH (08:51)
[2022-02-08] MEDS ORDERED: CEFEPIME 500 MG in SYRINGE 0 ML IV SCH (12:00)
--- NOTE | 2022-02-08 15:14 | Discharge Summary ---
Date of Service February 08, 2022 Admission HPI Per Admitting Provider Jordy Tesfaye is an 81-year-old male with past medical history significant for ulcerative colitis s/p ileostomy, primary sclerosing cholangitis, CAD, and urinary stricture with extensive urological evaluations and procedures who presents today from home feeling generally unwell. 5 days ago, on 01/31 patient had a urology appointment at [facility]. At this time, his catheter was replaced, and procedure to visualize the urethra was done, which revealed a previously known urethral laceration had become more shallow, however extended in length. He also had worsening swelling of his penis then, which is currently in the process of being evaluated for urethral cancer. Since the procedure, patient has felt generally unwell. He is very fatigued, has no appetite, and feels generally achy, with some increase in RUQ pain. He denies fever chills, night sweats, chest pain, shortness of breath, no pain with urination. He has been on several antibiotics for extended periods of time since the beginning of November. Seems that he was on fluconazole as well as Augmentin for about 6 weeks from the beginning of November until around December 25, at which time he was taken off both of these. However, a UA was collected on 01/16, which once again grew yeast. Therefore, he had been placed back on fluconazole and has been taking this for approximately 1 week now. He had also been placed on Macrodantin intermittently at some point, presumably after the fluconazole had been stopped, however he and his are unsure of the exact timeframe. In ED, he is mildly hypotensive, otherwise VS wnl. Labs significant for renal failure with BUN of 60, CR 2.28 (baseline 0.70.8), bicarb 13, potassium 5.7, sodium 127, calcium 7.0, ionized 1.04. T bili 7.0, direct bili 5.2, alk phos 125. WBC within normal limits, however PCT 2.77, platelet count 30, Hgb 9.0. UA with nitrites, leuk esterase, and WBCs, however no bacteria or yeast. COVID- negative. CT A/P showed bladder wall thickening with infiltration adjacent to the bladder, seminal vesicles, prostate, as well as cirrhosis and increasing splenomegaly with trace ascites, LLQ ileostomy and large parastomal hernia with multiple small loops however no evidence of obstruction. Principal Diagnosis penile cellulitis, cholangitis, FORTUNATO Discharge Exam The patient is awake, alert and oriented 3, well developed and well nourished, normocephalic and atraumatic, lying in bed and in no acute distress. HEENT--PERRL, EOMI, mucous membranes and oropharynx mildly dry Neck--supple. No JVD. No bruits. Thyroid normal, trachea midline, no adenopathy. Heart--normal S1 and S2. No murmurs, rubs or gallops. Lungs--clear bilaterally, no respiratory distress, no accessory muscle use. Abdomen--normal bowel sounds and soft. Mild epigastric and left sided abdominal pain Extremities--no cyanosis or clubbing. No edema. Dermatologic--normal skin turgor, normal color, no abnormal lymph nodes, no rash. Neurologic--cranial nerves II through XII grossly intact. Rheumatologic--normal range of motion. Psychiatric--normal affect. Discharge Data Allergies Allergy/AdvReac Type Severity Reaction Status Date / Time Egg Derived Allergy Intermediate RASH WITH Verified 02/04/22 15:01 LARGE QUANTITIES metformin Allergy Intermediate GI ISSUES Verified 02/04/22 15:01 pollen extracts Allergy Intermediate ITCHY Verified 02/04/22 15:01 EYES, SNEEZING, CONGESTION codeine AdvReac Intermediate N/V, Verified 02/04/22 15:01 HYPOTENSTION fentanyl AdvReac Intermediate EXTREME Verified 02/04/22 15:01 NAUSEA; BP DROPS meperidine AdvReac Intermediate N/V, Verified 02/04/22 15:01 HYPOTENSTION morphine AdvReac Intermediate N/V, Verified 02/04/22 15:01 HYPOTENSTION Flu Virus Vaccine Allergy Intermediate AVOIDS DUE Uncoded 02/04/22 15:01 TO EGG ALLERGY NARCOTICS AdvReac Intermediate N/V, Uncoded 02/04/22 15:01 HYPOTENSTION Consultations 02/04/22 14:14 ED Decision to Admit Stat 02/04/22 16:40 Consult Urology Routine 02/04/22 16:45 Consult Nephrology Routine 02/04/22 20:02 Consult Gastroenterology Routine 02/04/22 21:44 Consult Lung Nodule Program Routine 02/07/22 14:46 Burn CD for patient Stat Ordered Studies 02/04/22 11:49 CT abd pelvis wo con Stat 02/05/22 10:29 MR MRCP Routine 02/06/22 09:29 CT abd pelvis wo con Urgent Hospital Course (1) Recurrent UTI (urinary tract infection): - UA with nitrites, leuko esterase, WBCs. Urine and blood cultures ordered, pending. -With suspected abscesses in the penis as per recent Urology notes - Due to prior urine cultures which grew MRSA, patient started on cefepime and daptomycin in ED, will continue these while waiting for cultures to result. -Holding home fluconazole due to worsening liver failure -Follows with infectious disease at [place] and has an appointment for this Friday On 02/06 Had multiple discussions with his . Initially called [facility] for transfer. As no call back, called the office of patient's GI. however, Dr. Mcclellan is on vacation. His then agreed to transfer to [place] Discussed case with GI, who did nt recommend ERCP as this may be hepatorenal syndrome. However, hospitalist substation supervisor Dr. Hernandez agreed to accept patient. Plan is also for Urology to followup with patient in house due to urethral stricture. Once transfer was accpeted, patient and were no longer agreeable to transfer as this was too late in the day. She also feels that he looks better and more calm in the afternoon and evening. She is concerned that moving him may make things worse. Had extensive talk with patient over multiple visits after 7pm and 8 pm. Explained that Urology, GI here recommend transfer. The Hospitalist at [place] also agrees with transfer. I am recommending transfer due to possibility of Urological procedures that may need to be done. If patient is not transferred overnight, he will lose the bed, and the process sofie have to be started from scratch. There is no guarantee that patient will have a bed tomorrow. Family and patient understood but do not consent to transfer. (2) Urethral stricture: - Patient identified to have a near complete occlusion at the mid to proximal urethra in September. He has had several chronic Banks's in place, as well as been on several different antibiotics for chronic Krys infections. - Primarily sees Dr. Allison with [facility] [place] urology, as well as [facility] [place]rology group. There is induration at the proximal penile distal bulbar urethra. MRI performed at [facility] was read as multiloculated abscesses. Patient's case is being reviewed by urologist at [facility] that performs reconstructive surgery. It is indicated in most recent urology note that they are recommending patient have a biopsy of the area due to concerns for urethral cancer. -Continue catheter currently in place, emptying without complications. - Consult Urology for additional assistance, appreciate their recommendations. -With penile and scrotal swelling-question if related to infection? Also with erosion of the glans-his urologist is aware of this and suggest ways to offload pressure from the catheter on the penis -Tylenol as needed for pain -Urology is recommending transfer to tertiary center ([facility]) (3) Primary sclerosing cholangitis: - Longstanding diagnosis, with resulting cirrhosis. Follows with [facility] in [place]. Routine ERCPs q3 months, however has not had one since May 2021. Next due for this at the end of summer. - T bili elevated at 7.0, D bili 5.2. Alk phos at baseline, AST and ALT WNL. -Has been on fluconazole for approximately 8 weeks which may be contributing - CT A/P showed unchanged CBD wall thickening, unchanged cirrhosis of liver, pneumobilia noted. Axi-iypi-rklj heterogeneity within portions lumbar are s imilar to prior exams. No well-defined masses present. Splenomegaly is increased. - We will check ammonia level with p.m. BMP due to complaints of fatigue. - GI consult placed, appreciate their recommendations. -Okay to use Tylenol but no more than 2000 mg daily -Follow LFTs, INR, CBC in the morning -Statin on hold -Continue ursodiol -bilirubin continues to worsen. (4) Acute renal failure: - Cr 2.36, GFR 25.6, severely reduced from baseline. Likely due to infection. No signs of obstruction on imaging. appreciate input from Nephro. Continue gentle IV fluids with bicarb. Awaiting cultures -Urinalysis with evidence of infection as well as with blood and protein, no casts - IVF. Correct electrolytes as described above. - Avoid nephrotoxins, renally dose medications as able. -Maintain Banks catheter which is draining -Hold home diclofenac, Augmentin (5) Hyperkalemia: - 5.7 on BMP on presentation, POC 5.9. EKG without peaked T waves. patient started on insulin with D50 and sodium bicarb in ED, as well as receiving 2L NS boluses. - Calcium gluconate ordered, patient also with hypocalcemia, Ca++ 7.0. - Repeat potassium later in the afternoon down to 5.3. - Repeat BMP in the morning -Give 1 L of isotonic sodium bicarbonate drip at 80 mils per hour overnight -Giving more insulin for hyperglycemia -Low potassium diet -Give 1 dose of Veltassa -Monitor on telemetry for arrhythmia On 02/06 Improving. (6) Type 2 diabetes mellitus: With hyperglycemia here after getting D50 in the ER as part of his treatment for hyperkalemia Start Accu-Cheks AC at bedtime, NovoLog sliding scale Give regular insulin 5 units again now for persistent hyperkalemia and for hyperglycemia Check hemoglobin A1c in the morning-last was 6.5% 3 months ago Not on medications at home (7) Hyponatremia: - 127 on BMP, POC 130. Suspect due to minimal/no PO intake over the past 5 days as well as acute kidney injury. - IVF ordered as well as bicarb gtt. -Follow BMP (8) Thrombocytopenia: - PLTs 30k today, baseline ~50-70. - Suspect they are low from worsening splenomegaly, cirrhosis. - Monitor on AM labs. -Hold any blood thinners to include aspirin, and his home diclofenac (9) Anemia: - 9.0, macrocytic Near pt's baseline. Has an upcoming iron transfusion. Takes daily folic acid - No evidence of acute bleeding. Will monitor on daily CBC. (10) CAD (coronary artery disease): Holding home aspirin due to thrombocytopenia, hold home statin due to LFT elevation Okay to continue metoprolol with hold parameters (11) Abnormal chest x-ray: A new 1.7 cm irregular density within the periphery of the right midlung zone. This could represent a pulmonary nodule. Therefore, follow-up nonemergent chest CT is recommended for further evaluation. Follow-up as outpatient Made referral to pulmonary nodule clinic (12) Cirrhosis: Secondary to PSC as above Plan - Transfer to [facility] for VTE ppx. Would not use chemical means due to thrombocytopenia - Full Code. Total Time Total Time Spent Total Time Spent (In Minutes): 35 Discharge Plan Discharge Items Patient Disposition: Transfer Acute Care Hospital Reason For Visit: INFECTION IN PENIS AND SCROTUM Discharge Diagnosis: cholangitis, FORTUNATO, penile cellulitis Activity: Resume your previous activity Non-emergency contact: Primary Care Provider and Urologist Call non-emergency contact if: you have any medication questions Follow-up/Referrals: Tom Bucio MD [Primary Care Provider] - Diet: Regular Addtl Attending Provider Instructions: please make arrangements to follow up with your regular doctors Pending Studies at Discharge: No Stand-Alone Forms: My [facility] Skilled Items Patient informed of condition?: Yes DNR: No Discharge Level of Care: Other Communicable Disease: No Discharge Prognosis: Stable Lines: Peripheral IV Urinary Catheter: Yes Medications and DC Order Prescriptions: Continued amoxicillin-pot clavulanate [Augmentin] 500-125 mg tablet 1 tab PO BID 6 Days Qty: 20 0RF Rx Instructions: STARTED 02/02/22 fluconazole [Diflucan] 100 mg tablet 200 mg PO DAILY 10 Days Qty: 20 0RF Rx Instructions: STARTED ABOUT A WEEK AGO, PER SPOUSE. aspirin 81 mg tablet,delayed release (DR/EC) 81 mg PO DAILY omeprazole 20 mg capsule,delayed release(DR/EC) 20 mg PO DAILY diclofenac sodium 75 mg tablet,delayed release (DR/EC) 75 mg PO DAILY rosuvastatin 10 mg tablet 10 mg PO DAILY alfuzosin 10 mg tablet extended release 24 hr 10 mg PO DAILY Rx Instructions: administer after the same meal each day folic acid 1 mg tablet 1 mg PO QAM alendronate [Fosamax] 70 mg Tablet 70 mg PO WK Label Comments: TAKES ON FRI. Rx Instructions: WEDNESDAYS ursodiol 300 mg Capsule 300 mg PO BIDM allopurinol 300 mg Tablet 300 mg PO QAM finasteride [Proscar] 5 mg Tablet 5 mg PO QAM magnesium oxide 400 mg magnesium Tablet 400 mg PO QAM meclizine [Medi-Meclizine] 25 mg Tablet 25 mg PO TID PRN (Reason: Vertigo) cranberry 500 mg Capsule 500 mg PO QAM loratadine [Claritin] 10 mg Tablet 10 mg PO QAM PRN (Reason: Congestion) misoprostol [Cytotec] 100 mcg Tablet 200 mcg PO QAM Ocutabs Tablet 1 tab PO BID calcium carbonate-vitamin D3 [Calcium 500 + D] 500 mg(1,250mg) -200 unit Tablet 1 tab PO QAM omega 9-epe-ydl-fish oil [Fish Oil] 1,000 mg (120 mg-180 mg) Capsule 1 cap PO QID metoprolol tartrate 25 mg Tablet 75 mg PO QPM Qty: 90 0RF Saccharomyces boulardii [Florastor] 250 mg Capsule 250 mg PO DAILY Qty: 30 0RF metoprolol tartrate [Lopressor] 100 mg tablet 50 mg PO QAM melatonin 3 mg Tablet 3 mg PO HS Discharge Orders: Discharge Order (Routine); Ordered 02/07/22 Ordered By: Sagrario Dubon Admission Data Admit Date/Time: 02/04/22 14:33 Attending Provider: Sagrario uDbon Admit Provider: Petra Martines Primary Care Provider: Tom Bucio Other Providers: Petra Martines ; Adriano Morales ; Adriano Silva ; Farhat Dodd Other Interventions: Discharge Summary Assessment (RN) Last Done: 02/08/22 10:29 Coding Level of Care Code D/C DAY MANAGEMENT >30 MINS Diagnoses Recurrent UTI (urinary tract infection) N39.0 Urethral stricture N35.919 Primary sclerosing cholangitis K83.0 Acute renal failure N17.9 Hyperkalemia E87.5 Type 2 diabetes mellitus E11.65 Diabetes mellitus chcf insulin use: without chcf use Diabetes mellitus complication status: with hyperglycemia Hyponatremia E87.1 Thrombocytopenia D69.6 Anemia D64.9 CAD (coronary artery disease) I25.10 Abnormal chest x-ray R93.89 Cirrhosis K74.60 Time Spent (min) 35
--- NOTE | 2022-02-15 08:32 | Coding Query ---
SEPSIS To promote full compliance with coding requirements relating to patient care, physician participation is requested in all cases of ground nuclear weapons assembly officer uncertainty. Please assist us with the question(s) below: In responding to this query, please exercise your independent professional judgement. The fact that a question is asked does not imply that any particular answer is desired or expected. We appreciate your clarification on this issue. Throughout the medical record, you have clearly documented a localized infection and your patient has clinical evidence of a generalized sepsis or severe sepsis. The term urosepsis is a nonspecific entity and is coded as an UTI. If the patient has sepsis, severe sepsis, from an urinary source or some other source, please clarify in your response below. The medical record reflects the following clinical findings: Pt admitted with penile abscess/ UTI . Uro consulted ..history of urethral strictures. 02/04 Uro progress documented Sepsis. Antibiotic IV given..Pt transferred to acute care facility for further treatment. Please document, if known or suspected, if Sepsis was treated during this IP stay. Thanks for your help! Jasbir Eckert [facility] ____ ( )Bacteremia (Nonspecific laboratory finding of bacteria in the blood) Specify Organism ( ) Present on Admission ( ) Not present on admission ( ) Unable to clinically determine ( ) Septicemia (Systemic disease associated with the presence of pathogenic microorganisms in the blood): Specify Organism ( ) Present on Admission ( ) Not present on admission ( ) Unable to clinically determine ( ) Sepsis Specify Organism Specify Associated Condition/Diagnosis ( ) Present on Admission ( ) Not present on admission ( ) Unable to clinically determine ( ) Severe Sepsis (Sepsis associated with acute organ dysfunction) Specify Organism Specify Associated Condition/Diagnosis ( ) Present on Admission ( ) Not present on admission ( ) Unable to clinically determine ( ) Septic Shock (Severe sepsis with acute circulatory failure, unexplained by other causes) ( ) Present on Admission ( ) Not present on admission ( ) Unable to clinically determine ( x) Other, patient has: no evidence of sepsis MTDD
== END 2022-02-08 11:14 | disposition short-term general hospital (02) | DRG 727 ==
LOC: ED 09:25 → SUATTDRO 14:33 → 2S 14:33

== ENCOUNTER 2022-12-28 07:50 | Observation (INO) ==
--- NOTE | 2022-12-28 08:39 | Emergency Department Note ---
Impression & Plan Pancytopenia, Hypocalcemia, Abdominal ascites ED Provider Note NAME: KENDRA HUERTA AGE: 82 SEX: M : 1940 ARRIVES VIA: Walk-In INFORMANT: Patient, ED PROVIDER(S): Neville Thomas MD CHIEF COMPLAINT: Feeling like incomplete urination MEDICAL DECISION MAKING: Patient presents due to concern for abdominal discomfort in his lower abdomen with associated difficulty with urination. IV was established blood was obtained. A bladder scan was performed but difficult to ascertain whether or not the patient was retaining given the patient's large left lower quadrant hernia defect. CT of the abdomen pelvis also ordered along with urinalysis and urine culture. The patient's blood work does show significant anemia. Patient's hemoglobin is less than 7. Currently at 6.6. The patient reportedly scheduled for iron inf usions. No reported bright red blood or dark stools from his ostomy. Patient also does have associated thrombocytopenia at 23,000. Patient is also leukopenic. Patient was consented for 2 units PRBCs. Patient was eventually to give a urine specimen. Patient did feel improved and felt as though he did not require additional urgency or frequency. I did discuss the patient's case with on-call urologist Dr. Hollis given the patient's concern for prior requirement of a wire catheter placement. He states that he will evaluate the patient. Patient was consented for the blood and the patient was ordered a gram of calcium gluconate. I did speak the on-call hospitalist service after conveying the findings to the patient and the patient's family member. Patient was admitted to the medicine service by Dr. Rodriguez. Patient CT shows cirrhosis ascites varices abdominal hernias chronic biliary thickening and pneumobilia which is unchanged and chronic bladder outlet obstruction. Of note Dr. Hlolis did place a catheter. Critical Care: I have personally spent 35 minutes of critical care time in direct management of this patient. This includes bedside care, interpretation of diagnostic studies, and testing, discussion with consultants, patient, and family members, and other require inpatient management activities. This 35 minutes is in excess of all separately billable procedures. Prior /Outside records reviewed: Patient does have a radiation oncology discharge summary from [facility] Zhang left lower lobe adenocarcinoma and right upper lobe presumed lung CA. Patient is status post completion of SBRT to the right left lung. I did review a urology note from Dr. Keating from October 14. Patient has been recommended for 16 [place] silicone catheter. Differential diagnosis: UTI, bladder outlet obstruction, bladder stone, FORTUNATO, acute renal failure, medication side effect, bowel obstruction, perforation among others were considered Diagnostics, as interpreted by me: ECG: None Cardiac monitoring: An order was placed for continuous cardiac monitoring. The monitor shows a rate of 67 with sinus rhythm. Patient was placed on pulse oximetry Medical decision rules: None Imaging studies: See below I did informally reviewed the patient's CT scan which does show ascites. HPI: The patient does present with family bedside due to concern for abdominal pain the urge to urinate but the inability to urinate. The patient was recently seen by his primary urologist down at her she did have a void trial and catheter was removed. The patient did have a culture completed which showed possible infection with switch from ciprofloxacin to Augmentin which the patient has been taking twice daily since . Patient not have any issues with urination until this morning. No recent falls or trauma. The patient did suffer from chronic shortness of breath was treated for localized lung CA with radiation back in November. The patient is followed locally with urology Dr. Silva and Dr. Hollis and then down at [facility] with Dr. Sinclair. Patient had had a Dos Santos catheter in for approximately 1 year and several months. This was recently removed this week. Patient denies any nausea vomiting. The patient does suffer from chronic shortness of breath but this is unchanged. Patient does have chronic lower extremity swelling which is unchanged. No flank pain or back pain. No fevers or chills. Feeling at bedside also relates that the patient does suffer from chronic thrombocytopenia and typically does require a guidewire in order to place a Dos Santos catheter. PAST MEDICAL HISTORY: See Below PAST SURGICAL HISTORY: See Below SOCIAL HISTORY: See Below HOME MEDICATIONS: See Below ALLERGIES: See Below VITALS: See Below PHYSICAL EXAMINATION: GENERAL: NAD, non-toxic. EYE EXAM: Normal conjunctiva. PERRL, no anisocoria and EOM's grossly intact w/o pain. NECK: Supple, no nuchal rigidity, no adenopathy, non-tender. No signs of meningismus. FROM of the neck with good chin to chest and neck extension. No stridor. LUNGS: Clear to auscultation. Normal chest wall mechanics. HEART: NSR, no MRG. ABDOMEN: Abdomen soft, large hernia defect in the left lower quadrant with surrounding ostomy present, no significant TTP, no masses, no rebound or guarding. BACK: No CVA TTP. SKIN: No rashes and no bruising. UPPER EXTREMITIES: Upper extremities are grossly normal. LOWER EXTREMITIES: Grossly normal, 1+ symmetric bilateral lower extremity edema without any calf pain or erythema. NEURO EXAM: A&O x3, cranial nerves II-XII grossly intact, normal speech, moves all 4 extremities. Past Med/Surg History Medical History Abscess of right shoulder (~09/2020) Basal cell carcinoma Benign prostatic hyperplasia with urinary obstruction CAD (coronary artery disease) STENT X 1 (2001) AT [facility] Enlarged prostate High cholesterol History of IBS History of kidney stones History of myocardial infarction STENT X 1 (2001) S/P B/L TKA Stable; Has not had to use NTG since stent placement HTN (hypertension) Hx of basal cell carcinoma Hx of deep venous thrombosis LLE "A LONG TIME AGO" Hx of ulcerative colitis S/p colectomy- ileostomy 1990 and 1994 Hx of vertigo Hypoxia Ileostomy in place Left lower lobe pneumonia Left lower lobe pulmonary nodule 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 No evidence of thrombus on echo May 2022. Lung cancer Macular degeneration Neurogenic bladder NO DOS SANTOS CATHETER 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 PVCs (premature ventricular contractions) Asymptomatic per patient Right tibial fracture Right tibial fracture Sciatica Solitary pulmonary nodule TIA (transient ischemic attack) TIA vs complex migraine February 2019 Type 2 diabetes mellitus Surgical History History of anesthesia reaction SLOW TO WAKE, BREATHING ISSUES, NAUSEA AND VOMITING History of appendectomy History of arthroplasty of right shoulder Right TSA= 05/24/16= Grade 1 view, MAC#4 at [facility] History of cholecystectomy History of colonoscopy History of cystoscopy History of ERCP MULTIPLE History of exploratory laparotomy X2 "COMMON DUCT RECONSTRUCTION" History of hand surgery RT/LEFT THUMBS History of lumbar laminectomy History of total bilateral knee replacement Hx of bilateral cataract extraction Family History Father Myocardial infarction Family/Other Hypertension Nephrolithiasis Sister FH: ovarian cancer Other Family history of breast cancer in mother Social History Smoking Status: Never smoker Second Hand Exposure: No; Do You Dip or Chew Tobacco: No; Hx Alcohol Use: Yes Alcohol type: wine Alcohol Intake Frequency: Monthly or Less Hx Substance Use: No Preferred Language: Icelandic Communication Ability: Effective Visual Impairment: Limited Hearing Ability: Use of Hearing Aid Advisory Internship Required: No Beliefs That Will Affect Care: None marital status: Current Living Situation: Spouse Current Living Situation Comment: Currently in [facility] post fall and leg fracture current occupational status: retired current occupation: [employer] Feels Safe at Home: Yes Diet Comment: avoid heavy roughage during the past year weight has: remained stable Assistive Devices: Walker Allergies Allergies Allergy/AdvReac Type Severity Reaction Status Date / Time Egg Derived Allergy Intermediate RASH WITH Verified 12/26/22 13:52 LARGE QUANTITIES metformin Allergy Intermediate GI ISSUES Verified 12/26/22 13:52 pollen extracts Allergy Intermediate ITCHY Verified 12/26/22 13:52 EYES, SNEEZING, CONGESTION codeine AdvReac Intermediate N/V, Verified 12/26/22 13:52 HYPOTENSTION fentanyl AdvReac Intermediate EXTREME Verified 12/26/22 13:52 NAUSEA; BP DROPS meperidine AdvReac Intermediate N/V, Verified 12/26/22 13:52 HYPOTENSTION morphine AdvReac Intermediate N/V, Verified 12/26/22 13:52 HYPOTENSTION Flu Virus Vaccine Allergy Intermediate AVOIDS DUE Uncoded 12/26/22 13:52 TO EGG ALLERGY NARCOTICS AdvReac Intermediate N/V, Uncoded 12/26/22 13:52 HYPOTENSTION Home Meds Home Medications Medication Instructions Recorded Confirmed alendronate 70 mg tablet (Fosamax) 70 mg PO WK 09/29/18 12/28/22 allopurinol 300 mg tablet 300 mg PO QAM 09/29/18 12/28/22 finasteride 5 mg tablet (Proscar) 5 mg PO QAM 09/29/18 12/28/22 magnesium oxide 400 mg PO QAM 09/29/18 12/28/22 folic acid 1 mg tablet 1 mg PO QDL 02/02/19 12/28/22 cranberry 500 mg capsule 500 mg PO QAM 04/02/19 12/28/22 meclizine 25 mg tablet 25 mg PO TID PRN Vertigo 04/02/19 12/28/22 (Medi-Meclizine) loratadine 10 mg tablet (Claritin) 10 mg PO QAM 06/24/19 12/28/22 calcium carbonate 500 mg-vitamin 1 tab PO QDL 02/09/21 12/28/22 D3 5 mcg (200 unit) tablet (Calcium 500 + D) misoprostol 100 mcg tablet 200 mcg PO QAM 02/09/21 12/28/22 (Cytotec) omega 2-bqo-uvs-fish oil 1,000 mg 1 cap PO QDL 02/09/21 12/28/22 (120 mg-180 mg) capsule (Fish Oil) alfuzosin 10 mg tablet,extended 10 mg PO QDD 04/30/21 12/28/22 release 24 hr diclofenac sodium 75 mg 75 mg PO DAILY 04/30/21 12/28/22 tablet,delayed release omeprazole 20 mg capsule,delayed 20 mg PO DAILY 04/30/21 12/28/22 release rosuvastatin 10 mg tablet 10 mg PO HS 04/30/21 12/28/22 Bifidobacterium infantis 4 mg 4 mg PO DAILY PRN WHEN TAKING 09/04/22 12/28/22 capsule (Align) ANTIBIOTICS Prevagen 1 tab PO QAM 09/04/22 12/28/22 acetaminophen 500 mg tablet 500 - 1,000 mg PO Q6H PRN Pain 09/04/22 12/28/22 (Tylenol Extra Strength) vitamins A,C,R-dcur-xjjcfs 2,148 2 tab PO BIDM 09/04/22 12/28/22 mcg-113 mg-45 mg-17.4 mg tablet (PreserVision AREDS) omega-3s 667 mk-uki-iie-fish 3 cap PO QDL 10/07/22 12/28/22 oil-vitamin D3 250 unit capsule (Dry Eye [place] Benefits) propylene glycol-glycerin 0.6 1 drp ophthalmic (eye) BID 10/07/22 12/28/22 %-0.6 % eye drops in a dropperette (Soothe Lubricant) aspirin 81 mg tablet,delayed 81 mg PO DAILY 11/18/22 12/28/22 release melatonin 3 mg tablet 5 mg PO HS PRN SLEEP 11/18/22 12/28/22 metoprolol tartrate 50 mg tablet 50 mg PO DAILY 11/18/22 12/28/22 tolterodine 2 mg tablet (Detrol) 4 mg PO DAILY 11/18/22 12/28/22 ursodiol 300 mg capsule 300 mg PO BIDM 11/18/22 12/28/22 ciprofloxacin HCl 500 mg tablet 500 mg PO BID PRN Other 12/26/22 12/28/22 (Cipro) amoxicillin 875 mg-potassium 1 tab PO Q12H 12/28/22 12/28/22 clavulanate 125 mg tablet Previous Rx's Medication Instructions Recorded metoprolol tartrate 25 mg tablet 75 mg PO QPM #90 tabs 02/13/21 Results & Data (ED) Vital Signs Vital Signs - 24 hr 12/28/22 07:53 12/28/22 09:18 12/28/22 09:00 Temperature 36.1 C L Temperature Source Temporal Artery Scan Pulse Rate 62 60 Pulse Rate [Right Finger] Pulse Rate from SpO2 Sensor Pulse Rhythm [Right Finger] Pulse Strength [Right Finger] Respiratory Rate 22 Respiratory Effort / Characteristics Non-Labored Respiratory Depth Normal Respiratory Pattern Blood Pressure 116/61 Blood Pressure [Right Arm] Blood Pressure Mean 79 Blood Pressure Mean [Right Arm] Blood Pressure Position [Right Arm] Pulse Oximetry 99 92 Oxygen Delivery Method Room Air Room Air Sepsis Recent Fever Within 48 Hours No Sepsis New/Unexplained Change in Mental Status N/A Sepsis Action Taken by Nursing No Action Required 12/28/22 10:00 12/28/22 09:18 12/28/22 09:41 Temperature Temperature Source Pulse Rate 59 L 63 Pulse Rate [Right Finger] 60 Pulse Rate from SpO2 Sensor 59 L Pulse Rhythm [Right Finger] Regular Pulse Strength [Right Finger] Normal Respiratory Rate 18 21 Respiratory Effort / Characteristics Non-Labored Respiratory Depth Normal Respiratory Pattern Regular Blood Pressure Blood Pressure [Right Arm] 111/65 Blood Pressure Mean Blood Pressure Mean [Right Arm] 80 Blood Pressure Position [Right Arm] Lying Pulse Oximetry 92 92 Oxygen Delivery Method Room Air Sepsis Recent Fever Within 48 Hours Sepsis New/Unexplained Change in Mental Status Sepsis Action Taken by Nursing 12/28/22 10:00 12/28/22 10:12 12/28/22 10:12 Temperature Temperature Source Pulse Rate 61 62 Pulse Rate [Right Finger] Pulse Rate from SpO2 Sensor 62 61 Pulse Rhythm [Right Finger] Pulse Strength [Right Finger] Respiratory Rate 15 19 Respiratory Effort / Characteristics Respiratory Depth Respiratory Pattern Blood Pressure 111/65 Blood Pressure [Right Arm] Blood Pressure Mean 78 Blood Pressure Mean [Right Arm] Blood Pressure Position [Right Arm] Pulse Oximetry 92 92 Oxygen Delivery Method Sepsis Recent Fever Within 48 Hours Sepsis New/Unexplained Change in Mental Status Sepsis Action Taken by Nursing 12/28/22 10:30 12/28/22 10:30 12/28/22 11:00 Temperature Temperature Source Pulse Rate 60 Pulse Rate [Right Finger] Pulse Rate from SpO2 Sensor 61 Pulse Rhythm [Right Finger] Pulse Strength [Right Finger] Respiratory Rate 18 Respiratory Effort / Characteristics Respiratory Depth Respiratory Pattern Blood Pressure 120/58 L 122/61 Blood Pressure [Right Arm] Blood Pressure Mean 95 88 Blood Pressure Mean [Right Arm] Blood Pressure Position [Right Arm] Pulse Oximetry 94 Oxygen Delivery Method Sepsis Recent Fever Within 48 Hours Sepsis New/Unexplained Change in Mental Status Sepsis Action Taken by Nursing 12/28/22 11:00 12/28/22 11:30 12/28/22 11:30 Temperature Temperature Source Pulse Rate 60 63 Pulse Rate [Right Finger] Pulse Rate from SpO2 Sensor 62 65 Pulse Rhythm [Right Finger] Pulse Strength [Right Finger] Respiratory Rate 18 17 Respiratory Effort / Characteristics Respiratory Depth Respiratory Pattern Blood Pressure 140/70 Blood Pressure [Right Arm] Blood Pressure Mean 107 Blood Pressure Mean [Right Arm] Blood Pressure Position [Right Arm] Pulse Oximetry 93 95 Oxygen Delivery Method Sepsis Recent Fever Within 48 Hours Sepsis New/Unexplained Change in Mental Status Sepsis Action Taken by Nursing 12/28/22 12:00 12/28/22 12:00 Temperature Temperature Source Pulse Rate 63 Pulse Rate [Right Finger] Pulse Rate from SpO2 Sensor 63 Pulse Rhythm [Right Finger] Pulse Strength [Right Finger] Respiratory Rate 25 H Respiratory Effort / Characteristics Respiratory Depth Respiratory Pattern Blood Pressure 124/67 Blood Pressure [Right Arm] Blood Pressure Mean 85 Blood Pressure Mean [Right Arm] Blood Pressure Position [Right Arm] Pulse Oximetry 93 Oxygen Delivery Method Sepsis Recent Fever Within 48 Hours Sepsis New/Unexplained Change in Mental Status Sepsis Action Taken by [facility] Medications Current Medication List: was personally reviewed by me Laboratory Data Attestation: I reviewed the patient's lab results. 12/28/22 09:12 12/28/22 09:12 Lab Results 12/28/22 12/28/22 12/28/22 Range/Units 09:12 09:12 09:12 WBC 1.72 L (4.8-10.8) K/ul RBC 1.87 L (4.70-6.10) M/uL Hgb 6.6 L* (14.0-18.0) g/dl POC Hgb (14.0-18.0) g/dl Hct 20.7 L* (42.0-52.0) % POC Hct (42-52) % MCV 110.7 H (80.0-100.0) fL MCH 35.3 H (25.0-34.0) pg MCHC 31.9 L (32.0-36.0) g/dL RDW Std Deviation 61.6 H (36.4-46.3) fL RDW Coeff of Chani 15.2 H (11.5-14.5) % Plt Count 23 L* (130-400) K/uL Immature Gran % (Auto) 0.0 % Neut % (Auto) 68.6 % Lymph % (Auto) 19.8 % [place] % (Auto) 9.3 % Eos % (Auto) 2.3 % Baso % (Auto) 0.0 % Neut # (Auto) 1.18 L (1.40-6.50) K/uL Lymph # (Auto) 0.34 L (1.2-3.4) K/uL [place] # (Auto) 0.16 (0.11-0.59) K/uL Eos # (Auto) 0.04 (0-0.50) K/uL Baso # (Auto) 0.00 (0-0.2) K/uL Immature Gran # (Auto) 0.00 L (0.01-0.20) K/uL Platelet Estimate Decreased L (Normal) Macrocytosis Present Tear Drop Cells 1+ PT 13.8 H (9.0-12.0) Seconds INR 1.3 H (0.9-1.1) POC Sodium (135-144) mmol/L Sodium 138 (136-145) mmol/L POC Potassium (3.3-5.0) mmol/L Potassium 4.5 (3.5-5.1) mmol/L POC Chloride (101-112) mmol/L Chloride 113 H (98-107) mmol/L Carbon Dioxide 20 L (21-32) mmol/L POC Total CO2 (24-31) mmol/L Anion Gap 5 (3-11) POC Anion Gap (16-25) mmol/L POC BUN (7-18) mg/dl BUN 24 H (6-23) mg/dl Creatinine 0.86 (0.6-1.4) mg/dl POC Creatinine (0.6-1.3) mg/dl Est Cr Clr Drug Dosing 4.9 ml/min Est GFR ( Amer) 92.3 ml/min Est GFR (Non-Af Amer) 79.6 ml/min BUN/Creatinine Ratio 27.9 H (10-20) Glucose 173 H (70-99(Fasting)) mg/dl POC Glucose (other) (70-99) mg/dl Calcium 7.8 L (8.6-10.3) mg/dl POC Ioniz Calcium [place] (1.12-1.32) mmol/l Iron 27 L (35-175) mcg/dl TIBC 304 (250-450) mcg/dl Unsaturated IBC 277 (155-355) mcg/dl Transferrin % Sat 9 L (20-50) % Ferritin 23.0 (8-388) ng/ml Total Bilirubin 0.9 (0.2-1.0) mg/dl AST 16 (13-39) U/L ALT 11 (7-52) U/L Alkaline Phosphatase 131 H (34-104) U/L Total Protein 4.7 L (6.0-8.3) gm/dl Albumin 2.4 L (3.4-5.0) gm/dl Globulin 2.3 L (2.5-4.0) gm/dl Albumin/Globulin Ratio 1.0 (0.9-2) Lipase 38 (11-82) U/L Urine Color Urine Appearance (Clear) Urine pH (4.5-7.5) Ur Specific [place] (1.000-1.030) Urine Protein (Negative) Urine Glucose (UA) (Negative) Urine Ketones (Negative) Urine Blood (Negative) Urine Nitrite (Negative) Urine Bilirubin (Negative) Urine Urobilinogen (Negative) Ur Leukocyte Esterase (Negative) SARS-CoV-2, RNA, NAAT (NEGATIVE) Blood Type Antibody Screen Antibody Identification Crossmatch 12/28/22 12/28/22 12/28/22 Range/Units 09:12 09:23 10:25 WBC (4.8-10.8) K/ul RBC (4.70-6.10) M/uL Hgb (14.0-18.0) g/dl POC Hgb 7.1 L (14.0-18.0) g/dl Hct (42.0-52.0) % POC Hct 21 L (42-52) % MCV (80.0-100.0) fL MCH (25.0-34.0) pg MCHC (32.0-36.0) g/dL RDW Std Deviation (36.4-46.3) fL RDW Coeff of Chani (11.5-14.5) % Plt Count (130-400) K/uL Immature Gran % (Auto) % Neut % (Auto) % Lymph % (Auto) % [place] % (Auto) % Eos % (Auto) % Baso % (Auto) % Neut # (Auto) (1.40-6.50) K/uL Lymph # (Auto) (1.2-3.4) K/uL [place] # (Auto) (0.11-0.59) K/uL Eos # (Auto) (0-0.50) K/uL Baso # (Auto) (0-0.2) K/uL Immature Gran # (Auto) (0.01-0.20) K/uL Platelet Estimate (Normal) Macrocytosis Tear Drop Cells PT (9.0-12.0) Seconds INR (0.9-1.1) POC Sodium 139 (135-144) mmol/L Sodium (136-145) mmol/L POC Potassium 4.4 (3.3-5.0) mmol/L Potassium (3.5-5.1) mmol/L POC Chloride 110 (101-112) mmol/L Chloride (98-107) mmol/L Carbon Dioxide (21-32) mmol/L POC Total CO2 19 L (24-31) mmol/L Anion Gap (3-11) POC Anion Gap 15.0 L (16-25) mmol/L POC BUN 21 H (7-18) mg/dl BUN (6-23) mg/dl Creatinine (0.6-1.4) mg/dl POC Creatinine 0.8 (0.6-1.3) mg/dl Est Cr Clr Drug Dosing ml/min Est GFR ( Amer) ml/min Est GFR (Non-Af Amer) ml/min BUN/Creatinine Ratio (10-20) Glucose (70-99(Fasting)) mg/dl POC Glucose (other) 163 H (70-99) mg/dl Calcium (8.6-10.3) mg/dl POC Ioniz Calcium [place] 1.26 (1.12-1.32) mmol/l Iron (35-175) mcg/dl TIBC (250-450) mcg/dl Unsaturated IBC (155-355) mcg/dl Transferrin % Sat (20-50) % Ferritin (8-388) ng/ml Total Bilirubin (0.2-1.0) mg/dl AST (13-39) U/L ALT (7-52) U/L Alkaline Phosphatase (34-104) U/L Total Protein (6.0-8.3) gm/dl Albumin (3.4-5.0) gm/dl Globulin (2.5-4.0) gm/dl Albumin/Globulin Ratio (0.9-2) Lipase (11-82) U/L Urine Color Yellow Urine Appearance Clear (Clear) Urine pH 5.0 (4.5-7.5) Ur Specific [place] 1.017 (1.000-1.030) Urine Protein Negative (Negative) Urine Glucose (UA) Negative (Negative) Urine Ketones Negative (Negative) Urine Blood Negative (Negative) Urine Nitrite Negative (Negative) Urine Bilirubin Negative (Negative) Urine Urobilinogen Negative (Negative) Ur Leukocyte Esterase Negative (Negative) SARS-CoV-2, RNA, NAAT (NEGATIVE) Blood Type O Positive Antibody Screen POSITIVE A Antibody Identification Anti-c Crossmatch See Detail 12/28/22 Range/Units 10:32 WBC (4.8-10.8) K/ul RBC (4.70-6.10) M/uL Hgb (14.0-18.0) g/dl POC Hgb (14.0-18.0) g/dl Hct (42.0-52.0) % POC Hct (42-52) % MCV (80.0-100.0) fL MCH (25.0-34.0) pg MCHC (32.0-36.0) g/dL RDW Std Deviation (36.4-46.3) fL RDW Coeff of Chani (11.5-14.5) % Plt Count (130-400) K/uL Immature Gran % (Auto) % Neut % (Auto) % Lymph % (Auto) % [place] % (Auto) % Eos % (Auto) % Baso % (Auto) % Neut # (Auto) (1.40-6.50) K/uL Lymph # (Auto) (1.2-3.4) K/uL [place] # (Auto) (0.11-0.59) K/uL Eos # (Auto) (0-0.50) K/uL Baso # (Auto) (0-0.2) K/uL Immature Gran # (Auto) (0.01-0.20) K/uL Platelet Estimate (Normal) Macrocytosis Tear Drop Cells PT (9.0-12.0) Seconds INR (0.9-1.1) POC Sodium (135-144) mmol/L Sodium (136-145) mmol/L POC Potassium (3.3-5.0) mmol/L Potassium (3.5-5.1) mmol/L POC Chloride (101-112) mmol/L Chloride (98-107) mmol/L Carbon Dioxide (21-32) mmol/L POC Total CO2 (24-31) mmol/L Anion Gap (3-11) POC Anion Gap (16-25) mmol/L POC BUN (7-18) mg/dl BUN (6-23) mg/dl Creatinine (0.6-1.4) mg/dl POC Creatinine (0.6-1.3) mg/dl Est Cr Clr Drug Dosing ml/min Est GFR ( Amer) ml/min Est GFR (Non-Af Amer) ml/min BUN/Creatinine Ratio (10-20) Glucose (70-99(Fasting)) mg/dl POC Glucose (other) (70-99) mg/dl Calcium (8.6-10.3) mg/dl POC Ioniz Calcium [place] (1.12-1.32) mmol/l Iron (35-175) mcg/dl TIBC (250-450) mcg/dl Unsaturated IBC (155-355) mcg/dl Transferrin % Sat (20-50) % Ferritin (8-388) ng/ml Total Bilirubin (0.2-1.0) mg/dl AST (13-39) U/L ALT (7-52) U/L Alkaline Phosphatase (34-104) U/L Total Protein (6.0-8.3) gm/dl Albumin (3.4-5.0) gm/dl Globulin (2.5-4.0) gm/dl Albumin/Globulin Ratio (0.9-2) Lipase (11-82) U/L Urine Color Urine Appearance (Clear) Urine pH (4.5-7.5) Ur Specific [place] (1.000-1.030) Urine Protein (Negative) Urine Glucose (UA) (Negative) Urine Ketones (Negative) Urine Blood (Negative) Urine Nitrite (Negative) Urine Bilirubin (Negative) Urine Urobilinogen (Negative) Ur Leukocyte Esterase (Negative) SARS-CoV-2, RNA, NAAT NEGATIVE (NEGATIVE) Blood Type Antibody Screen Antibody Identification Crossmatch Administered Medications Discontinued Medications Calcium Gluconate () 1,000 mg in 60 mls @ 240 mls/hr IV NOW STA Stop: 12/28/22 10:05 Last Infusion: 12/28/22 11:19 Dose: 0 mls/hr Documented By: Admin: 12/28/22 10:52 Dose: 240 mls/hr Documented By: PARTH Ioversol (Optiray 320 100ml) 93 ml IV ONCE ONE Stop: 12/28/22 09:35 Last Admin: 12/28/22 09:36 Dose: 93 ml Documented By: HENRIQUE Imaging Data Radiologist's Impression: Abdomen/Pelvis CT 12/28/22 08:50 CT abd pelvis IV con only CLINICAL HISTORY: abdominal pain TECHNIQUE: Helical axial images of the abdomen and pelvis were obtained and displayed. Automated dose lowering techniques and/or adjustment according to patient size were utilized for this exam. This exam was performed with intravenous contrast. CT DOSE: 1446.39 mGy.cm COMPARISON: Comparison is made to CT abdomen pelvis 02/06/2022 FINDINGS: Lower chest: Bibasilar atelectasis versus scarring is seen. Cardiomegaly is seen. Liver: Nodular contour of the liver is seen compatible with cirrhosis. Gallbladder and biliary tree: Patient is status post cholecystectomy. Pneumobilia is seen. Pancreas: Unremarkable, no focal lesions. Spleen: Splenomegaly is noted, the spleen measures 17 cm in craniocaudal dimension. Adrenals: Irregular contour of the right kidney is seen. Kidneys and ureters: The right kidney is atrophic in appearance. Bladder: Thickened and trabeculated bladder is seen compatible with chronic outlet obstruction. Reproductive organs: Unremarkable. Bowel: Patient is status post proctocolectomy with left lower quadrant ileostomy. No evidence of bowel dilation is seen. Lymph nodes Retroperitoneal: Subcentimeter lymph nodes are noted. Pelvic: Unremarkable. Mesenteric: Unremarkable. Peritoneum: Normal. Vessels: Atherosclerotic calcifications are seen. Mild variceal disease is seen. The portal vein is patent. Abdominal wall: Bilateral abdominal wall hernias are seen containing fluid in multiple nondilated loops of bowel and fluid. Mild body wall edema is seen. Bones: Degenerative changes in the visualized spine. Multiple compression deformities are again seen in the lumbar spine. IMPRESSION: 1. Cirrhosis and ascites with splenomegaly and a few varices noted. 2. Prominent abdominal hernias. 3. Chronic biliary wall thickening and pneumobilia, unchanged from prior exam. 4. Chronic bladder outlet obstruction. ACT 112: Negative or not required by law. Electronically signed by: Jelani Giordano M.D. 12/28/2022 9:53 AM Discharge Plan Visit Data Chief Complaint: Abdominal Pain Stated Complaint: ABD PAIN ED Provider: Neville Thomas Discharge Problem: Pancytopenia, Hypocalcemia, Abdominal ascites Patient Disposition: Admitted As Inpatient Discharge Instructions Interventions: ED Discharge Assessment Last Done: 12/28/22 14:01
[2022-12-28] MEDS ORDERED: OPTIRAY 320 100ml IV ONE (09:34)
[2022-12-28 09:36] LABS: Appearance Urine Clear (Clear); Bilirubin Urine Negative (Negative); Blood Urine Negative (Negative); Color Urine Yellow; Glucose Urine UA Negative (Negative); Ketones Urine Negative (Negative); Leukocyte Esterase Urine Negative (Negative); Nitrite Urine Negative (Negative); Protein Urine Negative (Negative); Specific Gravity Urine 1.017 (1.000-1.030); Urobilinogen Urine Negative (Negative)
[2022-12-28 09:36] LABS: iSTAT Creatinine 0.8 mg/dl (0.6-1.3); iSTAT Hemoglobin 7.1 g/dl (14.0-18.0); iSTAT Ionized Calcium 1.26 mmol/l (1.12-1.32); iSTAT Potassium 4.4 mmol/L (3.3-5.0)
[2022-12-28 09:49] LABS: Hematocrit (blood only) 20.7 % (42.0-52.0); Hemoglobin 6.6 g/dl (14.0-18.0); Mean Corpuscular Hemoglobin 35.3 pg (25.0-34.0); Mean Corpuscular Hgb Conc 31.9 g/dL (32.0-36.0); Mean Corpuscular Volume 110.7 fL (80.0-100.0); Platelet Count 23 K/uL (130-400); RDW Coefficient of Variation 15.2 % (11.5-14.5); RDW Standard Deviation 61.6 fL (36.4-46.3); Red Blood Count 1.87 M/uL (4.70-6.10); White Blood Count 1.72 K/ul (4.8-10.8)
[2022-12-28 09:50] LABS: Albumin Level 2.4 gm/dl (3.4-5.0); BUN Creatinine Ratio 27.9 (10-20); Bilirubin,Total 0.9 mg/dl (0.2-1.0); Calcium 7.8 mg/dl (8.6-10.3); Creatinine Clr Calc Pharmacy 4.9 ml/min; Est GFR (African American) 92.3 ml/min; Est GFR (Non-African American) 79.6 ml/min; Globulin 2.3 gm/dl (2.5-4.0); Potassium 4.5 mmol/L (3.5-5.1); Total Protein 4.7 gm/dl (6.0-8.3)
[2022-12-28] MEDS ORDERED: SODIUM CHLORIDE 0.9% 250 ML IV PRN (09:51)
[2022-12-28] MEDS ORDERED: CALCIUM GLUCONATE 1,000 MG/60 ML BAG IV STA (09:51)
--- NOTE | 2022-12-28 09:55 | CT Scan Report ---
CT abd pelvis IV con only CLINICAL HISTORY: abdominal pain TECHNIQUE: Helical axial images of the abdomen and pelvis were obtained and displayed. Automated dose lowering techniques and/or adjustment according to patient size were utilized for this exam. This e xam was performed with intravenous contrast. CT DOSE: 1446.39 mGy.cm COMPARISON: Comparison is made to CT abdomen pelvis 02/06/2022 FINDINGS: Lower chest: Bibasilar atelectasis versus scarring is seen. Cardiomegaly is seen. Liver: Nodular contour of the liver is seen compatible with cirrhosis. Gallbladder and biliary tree: Patient is status post cholecystectomy. Pneumobilia is seen. Pancreas: Unremarkable, no focal lesions. Spleen: Splenomegaly is noted, the spleen measures 17 cm in craniocaudal dimension. Adrenals: Irregular contour of the right kidney is seen. Kidneys and ureters: The right kidney is atrophic in appearance. Bladder: Thickened and trabeculated bladder is seen compatible with chronic outlet obstruction. Reproductive organs: Unremarkable. Bowel: Patient is status post proctocolectomy with left lower quadrant ileostomy. No evidence of darryl l dilation is seen. Lymph nodes Retroperitoneal: Subcentimeter lymph nodes are noted. Pelvic: Unremarkable. Mesenteric: Unremarkable. Peritoneum: Normal. Vessels: Atherosclerotic calcifications are seen. Mild variceal disease is seen. The portal vein is p atent. Abdominal wall: Bilateral abdominal wall hernias are seen containing fluid in multiple nondilated loo ps of bowel and fluid. Mild body wall edema is seen. Bones: Degenerative changes in the visualized spine. Multiple compression deformities are again seen in the lumbar spine. IMPRESSION: 1. Cirrhosis and ascites with splenomegaly and a few varices noted. 2. Prominent abdominal hernias. 3. Chronic biliary wall thickening and pneumobilia, unchanged from prior exam. 4. Chronic bladder outlet obstruction. ACT 112: Negative or not required by law. Electronically signed by: Jelani Giordano M.D. 12/28/2022 9:53 AM
[2022-12-28 10:04] LABS: INR 1.3 (0.9-1.1); Prothrombin Time 13.8 Seconds (9.0-12.0)
[2022-12-28 10:08] LABS: Eosinophils # (auto) 0.04 K/uL (0-0.50); Eosinophils % (auto) 2.3 %; Lymphocytes # (auto) 0.34 K/uL (1.2-3.4); Lymphocytes % (auto) 19.8 %; Macrocytosis Present; Monocytes # (auto) 0.16 K/uL (0.11-0.59); Monocytes % (auto) 9.3 %; Neutrophils # (auto) 1.18 K/uL (1.40-6.50); Neutrophils % (auto) 68.6 %; Platelet Estimate Decreased (Normal); Tear Drop Cells 1+
--- NOTE | 2022-12-28 10:19 | History & Physical Report ---
Date of Service December 28, 2022 History of Present Illness Primary Care Provider: Tom Bucio MD Jordy is an 82-year-old male with past medical history of ulcerative colitis s/p ileostomy, primary sclerosing cholangitis, coronary artery disease, urethral stricture with surgical intervention and dilations who presents to the emergency department for abdominal pain with inability to void despite the urge to void. Patient was last seen by urology on 10/14/2022 and was noted to have bladder spasms with a large amount of debris in his urine and catheter. Patient was noted to be intolerant of 18 Upper Sorbian catheters, was recommended to have 16 Upper Sorbian silicone catheter with regular irrigation. Patient has a history of left lower lobe adenocarcinoma and right upper lobe presumed lung cancer s/p SBRT. Patient recently had urinary catheter removed with voiding trial, culture was concerning for contamination versus UTI and was switched from ciprofloxacin to Augmentin which she has been on twice daily for the last 3 days. He follows with [facility] [place]rology [place] [facility] [place] Has a history of chronic thrombocytopenia and requires a guidewire for Dos Santos catheter placement and exchange. Per sign out: Presented with difficulty urinating. +LLQ hernia and pain. +primary biliary cirrhosis. Anemia hgb. No BRB, Discussed with Dr. Hollis: Urology to see Getting 2 units of blood. ER assessment: Leukopenic, 1.72 Anemic, hemoglobin 6.6 with MCV 110.7. Last hemoglobin 10.9 on 06/07/2022 Platelet count 23, chronically thrombocytopenic last levels ranging around 3065 UA on admission uninfected appearing CTA/P with IV contrast: Cirrhosis and ascites with splenomegaly and mild variceal disease. Prominent abdominal hernias. Chronic biliary wall thickening and pneumobilia unchanged from prior gallbladder surgically absent, chronic bladder outlet obstruction. Bladder is thickened and trabeculated. EKG: Last echo 05/2022: Normal overall LV SF. Localized apical akinesis to dyskinesis. No interval change compared to 2019. No significant valvular disease. EF 55 to 60%. Class I diastolic dysfunction Course of treatment in ER: Transfusion?, Calcium 1 g. UCx pended. Allergies Allergy/AdvReac Type Severity Reaction Status Date / Time Egg Derived Allergy Intermediate RASH WITH Verified 12/26/22 13:52 LARGE QUANTITIES metformin Allergy Intermediate GI ISSUES Verified 12/26/22 13:52 pollen extracts Allergy Intermediate ITCHY Verified 12/26/22 13:52 EYES, SNEEZING, CONGESTION codeine AdvReac Intermediate N/V, Verified 12/26/22 13:52 HYPOTENSTION fentanyl AdvReac Intermediate EXTREME Verified 12/26/22 13:52 NAUSEA; BP DROPS meperidine AdvReac Intermediate N/V, Verified 12/26/22 13:52 HYPOTENSTION morphine AdvReac Intermediate N/V, Verified 12/26/22 13:52 HYPOTENSTION Flu Virus Vaccine Allergy Intermediate AVOIDS DUE Uncoded 12/26/22 13:52 TO EGG ALLERGY NARCOTICS AdvReac Intermediate N/V, Uncoded 12/26/22 13:52 HYPOTENSTION Home Medications Medication Instructions Recorded Confirmed Type alendronate 70 mg tablet (Fosamax) 70 mg PO WK 09/29/18 12/26/22 History allopurinol 300 mg tablet 300 mg PO QAM 09/29/18 12/26/22 History finasteride 5 mg tablet (Proscar) 5 mg PO QAM 09/29/18 12/26/22 History magnesium oxide 400 mg PO QAM 09/29/18 12/26/22 History folic acid 1 mg tablet 1 mg PO QDL 02/02/19 12/26/22 History cranberry 500 mg capsule 500 mg PO QAM 04/02/19 12/26/22 History meclizine 25 mg tablet 25 mg PO TID PRN Vertigo 04/02/19 12/26/22 History (Medi-Meclizine) loratadine 10 mg tablet (Claritin) 10 mg PO QAM 06/24/19 12/26/22 History calcium carbonate 500 mg-vitamin 1 tab PO QDL 02/09/21 12/26/22 History D3 5 mcg (200 unit) tablet (Calcium 500 + D) misoprostol 100 mcg tablet 200 mcg PO QAM 02/09/21 12/26/22 History (Cytotec) omega 9-etd-oqy-fish oil 1,000 mg 1 cap PO QDL 02/09/21 12/26/22 History (120 mg-180 mg) capsule (Fish Oil) metoprolol tartrate 25 mg tablet 75 mg PO QPM #90 tabs 02/13/21 12/26/22 Rx alfuzosin 10 mg tablet,extended 10 mg PO QDD 04/30/21 12/26/22 History release 24 hr diclofenac sodium 75 mg 75 mg PO DAILY 04/30/21 12/26/22 History tablet,delayed release omeprazole 20 mg capsule,delayed 20 mg PO DAILY 04/30/21 12/26/22 History release rosuvastatin 10 mg tablet 10 mg PO HS 04/30/21 12/26/22 History Bifidobacterium infantis 4 mg 4 mg PO DAILY PRN WHEN TAKING 09/04/22 12/26/22 History capsule (Align) ANTIBIOTICS Prevagen 1 tab PO QAM 09/04/22 12/26/22 History acetaminophen 500 mg tablet 500 - 1,000 mg PO Q6H PRN Pain 09/04/22 12/26/22 History (Tylenol Extra Strength) vitamins A,C,Q-dyqn-doagnl 2,148 2 tab PO BIDM 09/04/22 12/26/22 History mcg-113 mg-45 mg-17.4 mg tablet (PreserVision AREDS) omega-3s 667 we-qbk-trb-fish 3 cap PO QDL 10/07/22 12/26/22 History oil-vitamin D3 250 unit capsule (Dry Eye [place] Benefits) propylene glycol-glycerin 0.6 1 drp ophthalmic (eye) BID 10/07/22 12/26/22 History %-0.6 % eye drops in a dropperette (Soothe Lubricant) aspirin 81 mg tablet,delayed 81 mg PO DAILY 11/18/22 12/26/22 History release melatonin 3 mg tablet 5 mg PO HS PRN SLEEP 11/18/22 12/26/22 History metoprolol tartrate 50 mg tablet 50 mg PO DAILY 11/18/22 12/26/22 History tolterodine 2 mg tablet (Detrol) 4 mg PO DAILY 11/18/22 12/26/22 History ursodiol 300 mg capsule 300 mg PO BIDM 11/18/22 12/26/22 History ciprofloxacin HCl 500 mg tablet 500 mg PO BID 12/26/22 12/26/22 History ciprofloxacin HCl 500 mg tablet 500 mg PO BID PRN 12/26/22 12/26/22 History (Cipro) Past Med/Surg History Medical History Abscess of right shoulder (~09/2020) Basal cell carcinoma Benign prostatic hyperplasia with urinary obstruction CAD (coronary artery disease) STENT X 1 (2001) AT [facility] Enlarged prostate High cholesterol History of IBS History of kidney stones History of myocardial infarction STENT X 1 (2001) S/P B/L TKA Stable; Has not had to use NTG since stent placement HTN (hypertension) Hx of basal cell carcinoma Hx of deep venous thrombosis LLE "A LONG TIME AGO" Hx of ulcerative colitis S/p colectomy- ileostomy 1990 and 1994 Hx of vertigo Hypoxia Ileostomy in place Left lower lobe pneumonia Left lower lobe pulmonary nodule 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 No evidence of thrombus on echo May 2022. Lung cancer Macular degeneration Neurogenic bladder NO DOS SANTOS CATHETER 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 PVCs (premature ventricular contractions) Asymptomatic per patient Right tibial fracture Right tibial fracture Sciatica Solitary pulmonary nodule TIA (transient ischemic attack) TIA vs complex migraine February 2019 Type 2 diabetes mellitus Surgical History History of anesthesia reaction SLOW TO WAKE, BREATHING ISSUES, NAUSEA AND VOMITING History of appendectomy History of arthroplasty of right shoulder Right TSA= 05/24/16= Grade 1 view, MAC#4 at [facility] History of cholecystectomy History of colonoscopy History of cystoscopy History of ERCP MULTIPLE History of exploratory laparotomy X2 "COMMON DUCT RECONSTRUCTION" History of hand surgery RT/LEFT THUMBS History of lumbar laminectomy History of total bilateral knee replacement Hx of bilateral cataract extraction Family History Father Myocardial infarction Family/Other Hypertension Nephrolithiasis Sister FH: ovarian cancer Other Family history of breast cancer in mother Social History Smoking Status: Never smoker Second Hand Exposure: No; Do You Dip or Chew Tobacco: No; Hx Alcohol Use: Yes Alcohol type: wine Alcohol Intake Frequency: Monthly or Less Hx Substance Use: No Preferred Language: Bhutanese Communication Ability: Effective Visual Impairment: Limited Hearing Ability: Use of Hearing Aid 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 Beliefs That Will Affect Care: None marital status: Current Living Situation: Spouse Current Living Situation Comment: Currently in [facility] post fall and leg fracture current occupational status: retired current occupation: [employer] Feels Safe at Home: Yes Diet Comment: avoid heavy roughage during the past year weight has: remained stable Assistive Devices: Walker Results & Data Results & Data Vital Signs (Past 12 Hours) Vital Signs Temp Pulse Resp BP Pulse Ox O2 Del Method 12/28/22 09:00 92 Room Air 12/28/22 09:18 60 12/28/22 07:53 36.1 C L 62 22 116/61 99 Room Air PG Care Time/CCT Total # of Minutes Spent Total Time Spent with Patient: Total time spent is greater than 50% in coordination of care (as documented) at patient's floor/unit and/or counseling patient: Coding Diagnoses
--- NOTE | 2022-12-28 10:29 | Urology Consultation ---
Date of Consultation December 28, 2022 Assessment & Plan (1) UTI (urinary tract infection): Plan Very pleasant 82-year-old male with multiple medical comorbidities and a complicated past urologic history for urethral stricture which is previously been managed by catheter. Per the patient, he most recently saw Dr. Keating earlier this week and had a urethrogram and a cystoscopy performed. They opted to remove the catheter. He has been voiding spontaneously but had some pelvic pain. I had a very long conversation with them about options. As he is voiding now, we could leave the catheter out. The risk of leaving the catheter out is that the further we get out from his previous removal, the more likely that the stricture has recurred in the more difficult a Dos Santos catheter placement would be. After thoughtful discussion, they both agree that he would prefer to have a cat heter placed now as opposed to have to go through a urethral dilation in the future if he were to continue having issues Patient was prepped and draped in sterile fashion. A 16 Amharic silicone cath eter was advanced without difficulty in the bladder with return of clear yellow urine. Balloon was inflated with 10 cc of sterile water. He does require a silicone catheter as it is thought that he has an allergy to latex We will leave the catheter in for this time period. Then continue Augmentin as that is what urology had placed him on at [place]. We can either discuss possible removal prior to discharge or I be happy to see him back in my clinic to discuss plan moving forward as Dr. Keating is retiring. I am also happy to get them set back up with Dr. Rodriguez at [place]. Urology to follow Greater than 75 minutes was spent reviewing patient's complicated past medical history as well as discussing options with them and formulating a plan History of Present Illness History of Present Illness 82-year-old male with a complicated past urologic history of a urethral stricture which is previously required catheter placement. He has been followed by our office and most recently Dr. Chris wiggins at [facility]. Per report as I do not have the most recent note his catheter was removed this past Friday by Dr. Keating. He is currently on antibiotics. He presented to the emergency department today with abdominal pain and difficulty voiding. He was afebrile with stable vitals. Labs showed pancytopenia and he was admitted to medicine. Creatinine was stable at 0.86. He had a CT scan of the abdomen pelvis which I independently reviewed which showed a thickened bladder consistent with chronic obstruction and no other obvious urologic abnormalities. A urinalysis after he voided 100 cc in the emergency department was negative for infection. His past medical history significant for cirrhosis of the liver due to primary sclerosing cholangitis. He also has a history of inflammatory bowel disease. He has a history of adenocarcinoma of the left lower lobe of his lung. He likely also has a synchronous primary cancer involving his right upper lobe. I was able to get more history from the patient and his . They performed a retrograde urethrogram this past Friday which showed 1 area abnormality. Per report, Dr. Todd Performed a cystoscopy and said his urethra overall looked fairly good and they remove the catheter. Plan was to tentatively follow-up with Dr. Pippa Shields at [place] as Dr. Todd Is retiring. He did report some discomfort in the pelvic area but has been voiding spontaneously. Allergies Allergy/AdvReac Type Severity Reaction Status Date / Time Egg Derived Allergy Intermediate RASH WITH Verified 12/26/22 13:52 LARGE QUANTITIES metformin Allergy Intermediate GI ISSUES Verified 12/26/22 13:52 pollen extracts Allergy Intermediate ITCHY Verified 12/26/22 13:52 EYES, SNEEZING, CONGESTION codeine AdvReac Intermediate N/V, Verified 12/26/22 13:52 HYPOTENSTION fentanyl AdvReac Intermediate EXTREME Verified 12/26/22 13:52 NAUSEA; BP DROPS meperidine AdvReac Intermediate N/V, Verified 12/26/22 13:52 HYPOTENSTION morphine AdvReac Intermediate N/V, Verified 12/26/22 13:52 HYPOTENSTION Flu Virus Vaccine Allergy Intermediate AVOIDS DUE Uncoded 12/26/22 13:52 TO EGG ALLERGY NARCOTICS AdvReac Intermediate N/V, Uncoded 12/26/22 13:52 HYPOTENSTION Home Medications Medication Instructions Recorded Confirmed Type alendronate 70 mg tablet (Fosamax) 70 mg PO WK 09/29/18 12/28/22 History allopurinol 300 mg tablet 300 mg PO QAM 09/29/18 12/28/22 History finasteride 5 mg tablet (Proscar) 5 mg PO QAM 09/29/18 12/28/22 History magnesium oxide 400 mg PO QAM 09/29/18 12/28/22 History folic acid 1 mg tablet 1 mg PO QDL 02/02/19 12/28/22 History cranberry 500 mg capsule 500 mg PO QAM 04/02/19 12/28/22 History meclizine 25 mg tablet 25 mg PO TID PRN Vertigo 04/02/19 12/28/22 History (Medi-Meclizine) loratadine 10 mg tablet (Claritin) 10 mg PO QAM 06/24/19 12/28/22 History calcium carbonate 500 mg-vitamin 1 tab PO QDL 02/09/21 12/28/22 History D3 5 mcg (200 unit) tablet (Calcium 500 + D) misoprostol 100 mcg tablet 200 mcg PO QAM 02/09/21 12/28/22 History (Cytotec) omega 8-caf-tto-fish oil 1,000 mg 1 cap PO QDL 02/09/21 12/28/22 History (120 mg-180 mg) capsule (Fish Oil) metoprolol tartrate 25 mg tablet 75 mg PO QPM #90 tabs 02/13/21 12/28/22 Rx alfuzosin 10 mg tablet,extended 10 mg PO QDD 04/30/21 12/28/22 History release 24 hr diclofenac sodium 75 mg 75 mg PO DAILY 04/30/21 12/28/22 History tablet,delayed release omeprazole 20 mg capsule,delayed 20 mg PO DAILY 04/30/21 12/28/22 History release rosuvastatin 10 mg tablet 10 mg PO HS 04/30/21 12/28/22 History Bifidobacterium infantis 4 mg 4 mg PO DAILY PRN WHEN TAKING 09/04/22 12/28/22 History capsule (Align) ANTIBIOTICS Prevagen 1 tab PO QAM 09/04/22 12/28/22 History acetaminophen 500 mg tablet 500 - 1,000 mg PO Q6H PRN Pain 09/04/22 12/28/22 History (Tylenol Extra Strength) vitamins A,C,L-fztc-vifcfz 2,148 2 tab PO BIDM 09/04/22 12/28/22 History mcg-113 mg-45 mg-17.4 mg tablet (PreserVision AREDS) omega-3s 667 ou-uvv-nqj-fish 3 cap PO QDL 10/07/22 12/28/22 History oil-vitamin D3 250 unit capsule (Dry Eye [place] Benefits) propylene glycol-glycerin 0.6 1 drp ophthalmic (eye) BID 10/07/22 12/28/22 History %-0.6 % eye drops in a dropperette (Soothe Lubricant) aspirin 81 mg tablet,delayed 81 mg PO DAILY 11/18/22 12/28/22 History release melatonin 3 mg tablet 5 mg PO HS PRN SLEEP 11/18/22 12/28/22 History metoprolol tartrate 50 mg tablet 50 mg PO DAILY 11/18/22 12/28/22 History tolterodine 2 mg tablet (Detrol) 4 mg PO DAILY 11/18/22 12/28/22 History ursodiol 300 mg capsule 300 mg PO BIDM 11/18/22 12/28/22 History ciprofloxacin HCl 500 mg tablet 500 mg PO BID PRN Other 12/26/22 12/28/22 History (Cipro) amoxicillin 875 mg-potassium 1 tab PO Q12H 12/28/22 12/28/22 History clavulanate 125 mg tablet Patient History Medical History Abscess of right shoulder (~09/2020) Basal cell carcinoma Benign prostatic hyperplasia with urinary obstruction CAD (coronary artery disease) STENT X 1 (2001) AT 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 No evidence of thrombus on echo May 2022. Lung cancer Macular degeneration Neurogenic bladder NO DOS SANTOS CATHETER 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 PVCs (premature ventricular contractions) Asymptomatic per patient Right tibial fracture Right tibial fracture Sciatica Solitary pulmonary nodule TIA (transient ischemic attack) TIA vs complex migraine February 2019 Type 2 diabetes mellitus Surgical History History of anesthesia reaction SLOW TO WAKE, BREATHING ISSUES, NAUSEA AND VOMITING History of appendectomy History of arthroplasty of right shoulder Right TSA= 05/24/16= Grade 1 view, MAC#4 at [facility] History of cholecystectomy History of colonoscopy History of cystoscopy History of ERCP MULTIPLE History of exploratory laparotomy X2 "COMMON DUCT RECONSTRUCTION" History of hand surgery RT/LEFT THUMBS History of lumbar laminectomy History of total bilateral knee replacement Hx of bilateral cataract extraction Family History Father Myocardial infarction Family/Other Hypertension Nephrolithiasis Sister FH: ovarian cancer Other Family history of breast cancer in mother Social History Smoking Status: Never smoker Second Hand Exposure: No; Do You Dip or Chew Tobacco: No; Hx Alcohol Use: Yes Alcohol type: wine Alcohol Intake Frequency: Monthly or Less Hx Substance Use: No Preferred Language: Guamanian Communication Ability: Effective Visual Impairment: Limited Hearing Ability: Use of Hearing Aid Manager Compensation Required: No Beliefs That Will Affect Care: None marital status: Current Living Situation: Spouse Current Living Situation Comment: Currently in [facility] post fall and leg fracture 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 Extremities: Moves all 4 spontaneously Neuro: No gross deficits Skin: Warm, dry, no rashes noted Results & Data Vital Signs (Past 12 Hours) Vital Signs Temp Pulse Pulse Resp BP BP Pulse Ox 12/28/22 10:00 60 18 111/65 92 12/28/22 09:00 92 12/28/22 09:18 60 12/28/22 07:53 36.1 C L 62 22 116/61 99 O2 Del Method 12/28/22 10:00 Room Air 12/28/22 09:00 Room Air 12/28/22 09:18 12/28/22 07:53 Room Air PG Care Time/CCT Total # of Minutes Spent Total Time Spent with Patient: Total time spent is greater than 50% in coordination of care (as documented) at patient's floor/unit and/or counseling patient: Coding Level of Care Code 81111 INT INP/OBS CARE 3/75MIN Diagnoses UTI (urinary tract infection) N39.0
--- NOTE | 2022-12-28 11:00 | History & Physical Report ---
Date of Service December 28, 2022 Assessment & Plan (1) Iron deficiency anemia: Plan: Transfuse 2 units pRBCs Monitor H&H If appropriate increase in HGB will transfuse IV Venofer in AM Follows with Dr Jorge Fisher (2) Complicated urinary tract infection: Plan: Await urine C&S from [place] Continue Augmentin 875 BID urology following Dos Santos in place (3) Chronic kidney disease with active medical management without dialysis, stage 2 (mild): Plan: Chronic stable BUN 24 Cr 0.86 (4) Primary cancer of left upper lobe of lung: Plan: Chronic, stable Per patient and S/P radiation and resolved O2 saturation 96% on RA (5) Chronic venous insufficiency: Plan: Chronic (6) Venous ulcer of right leg: Plan: Chronic and following with wound clinic (7) Inability to urinate: Plan: Extensive urological history with hx of urethral stricture S/P Dos Santos ad draining well urology following (8) Primary sclerosing cholangitis: Plan: Chronic and Stable follows with Dr Mcclellan in [place] Continue ursodiol (9) HTN (hypertension): Plan: Chronic and stable Continue Metoprolol (10) Hx of ulcerative colitis: Plan: Chronic and stable with ileostomy large abdominal wall hernias not a surgical candidate (11) Hyperlipidemia: Plan: Chronic and stable continue rosuvastatin History of Present Illness Chief Complaint: abdominal pain and inability to void Primary Care Provider: Tom Bucio MD Jordy Tesfaye is an 82-year-old male with past medical history of ulcerative colitis s/p ileostomy, primary sclerosing cholangitis, coronary artery disease, urethral stricture with surgical intervention and dilations who presents to the emergency department for abdominal pain with inability to void despite the urge to void. Patient was last seen by urology on 10/14/2022 and was noted to have bladder spasms with a large amount of debris in his urine and catheter. Patient was noted to be intolerant of 18 Scottish catheters, was recommended to have 16 Scottish silicone catheter with regular irrigation and placed on Augmentin. Patient has a history of left lower lobe adenocarcinoma and right upper lobe presumed lung cancer s/p SBRT. Patient recently had urinary catheter removed with voiding trial, culture was concerning for contamination versus UTI and was switched from ciprofloxacin to Augmentin which she has been on twice daily for the last 3 days. He follows with [facility] urology locally and [facility] [place]. Has a history of chronic th rombocytopenia and requires a guidewire for Dos Santos catheter placement and exchange. Per sign out: Presented with difficulty urinating. +LLQ hernia and pain. +primary biliary cirrhosis. Anemia hgb. No BRB, Discussed with Dr. Hollis: Urology to see Getting 2 units of blood. ER assessment: Leukopenic, 1.72 Anemic, hemoglobin 6.6 with MCV 110.7. Last hemoglobin 10.9 on 06/07/2022 Platelet count 23, chronically thrombocytopenic last levels ranging around 3065 UA on admission uninfected appearing CTA/P with IV contrast: Cirrhosis and ascites with splenomegaly and mild variceal disease. Prominent abdominal hernias. Chronic biliary wall thickening and pneumobilia unchanged from prior gallbladder surgically absent, chronic bladder outlet obstruction. Bladder is thickened and trabeculated. EKG: Last echo 05/2022: Normal overall LV SF. Localized apical akinesis to dyskinesis. No interval change compared to 2019. No significant valvular disease. EF 55 to 60%. Class I diastolic dysfunction Course of treatment in ER: Transfusion2 units pRBC, Calcium 1 g. UCx pended. - Continue Augmentin and Dos Santos Urology following - If Hgb improves appropriately tomorrow AM will plan to transfuse 400 of Venefer Urology history includes hx BPH, previous surgerical procedures in past Perforated urethra October 2021 Has had a Dos Santos in place for the past 18 months and was just removed finally 12/26/22 at their follow up with [facility]. He also was placed on Augment 12/26/22 Last iron studies at [facility] 12/26/22 Iron - 25, Ferritin 42, TIBC 316, % saturation 8 Patient is set up for IV Venofer infusios x 4 was to be started next week with (hematology) Allergies Allergy/AdvReac Type Severity Reaction Status Date / Time Egg Derived Allergy Intermediate RASH WITH Verified 12/26/22 13:52 LARGE QUANTITIES metformin Allergy Intermediate GI ISSUES Verified 12/26/22 13:52 pollen extracts Allergy Intermediate ITCHY Verified 12/26/22 13:52 EYES, SNEEZING, CONGESTION codeine AdvReac Intermediate N/V, Verified 12/26/22 13:52 HYPOTENSTION fentanyl AdvReac Intermediate EXTREME Verified 12/26/22 13:52 NAUSEA; BP DROPS meperidine AdvReac Intermediate N/V, Verified 12/26/22 13:52 HYPOTENSTION morphine AdvReac Intermediate N/V, Verified 12/26/22 13:52 HYPOTENSTION Flu Virus Vaccine Allergy Intermediate AVOIDS DUE Uncoded 12/26/22 13:52 TO EGG ALLERGY NARCOTICS AdvReac Intermediate N/V, Uncoded 12/26/22 13:52 HYPOTENSTION Home Medications Medication Instructions Recorded Confirmed Type alendronate 70 mg tablet (Fosamax) 70 mg PO WK 09/29/18 12/28/22 History allopurinol 300 mg tablet 300 mg PO QAM 09/29/18 12/28/22 History finasteride 5 mg tablet (Proscar) 5 mg PO QAM 09/29/18 12/28/22 History magnesium oxide 400 mg PO QAM 09/29/18 12/28/22 History folic acid 1 mg tablet 1 mg PO QDL 02/02/19 12/28/22 History cranberry 500 mg capsule 500 mg PO QAM 04/02/19 12/28/22 History meclizine 25 mg tablet 25 mg PO TID PRN Vertigo 04/02/19 12/28/22 History (Medi-Meclizine) loratadine 10 mg tablet (Claritin) 10 mg PO QAM 06/24/19 12/28/22 History calcium carbonate 500 mg-vitamin 1 tab PO QDL 02/09/21 12/28/22 History D3 5 mcg (200 unit) tablet (Calcium 500 + D) misoprostol 100 mcg tablet 200 mcg PO QAM 02/09/21 12/28/22 History (Cytotec) omega 9-byv-uvs-fish oil 1,000 mg 1 cap PO QDL 02/09/21 12/28/22 History (120 mg-180 mg) capsule (Fish Oil) metoprolol tartrate 25 mg tablet 75 mg PO QPM #90 tabs 02/13/21 12/28/22 Rx alfuzosin 10 mg tablet,extended 10 mg PO QDD 04/30/21 12/28/22 History release 24 hr diclofenac sodium 75 mg 75 mg PO DAILY 04/30/21 12/28/22 History tablet,delayed release omeprazole 20 mg capsule,delayed 20 mg PO DAILY 04/30/21 12/28/22 History release rosuvastatin 10 mg tablet 10 mg PO HS 04/30/21 12/28/22 History Bifidobacterium infantis 4 mg 4 mg PO DAILY PRN WHEN TAKING 09/04/22 12/28/22 History capsule (Align) ANTIBIOTICS Prevagen 1 tab PO QAM 09/04/22 12/28/22 History acetaminophen 500 mg tablet 500 - 1,000 mg PO Q6H PRN Pain 09/04/22 12/28/22 History (Tylenol Extra Strength) vitamins A,C,F-vdkm-skpblc 2,148 2 tab PO BIDM 09/04/22 12/28/22 History mcg-113 mg-45 mg-17.4 mg tablet (PreserVision AREDS) omega-3s 667 ny-vrh-vvb-fish 3 cap PO QDL 10/07/22 12/28/22 History oil-vitamin D3 250 unit capsule (Dry Eye [place] Benefits) propylene glycol-glycerin 0.6 1 drp ophthalmic (eye) BID 10/07/22 12/28/22 History %-0.6 % eye drops in a dropperette (Soothe Lubricant) aspirin 81 mg tablet,delayed 81 mg PO DAILY 11/18/22 12/28/22 History release melatonin 3 mg tablet 5 mg PO HS PRN SLEEP 11/18/22 12/28/22 History metoprolol tartrate 50 mg tablet 50 mg PO DAILY 11/18/22 12/28/22 History tolterodine 2 mg tablet (Detrol) 4 mg PO DAILY 11/18/22 12/28/22 History ursodiol 300 mg capsule 300 mg PO BIDM 11/18/22 12/28/22 History ciprofloxacin HCl 500 mg tablet 500 mg PO BID PRN Other 12/26/22 12/28/22 History (Cipro) amoxicillin 875 mg-potassium 1 tab PO Q12H 12/28/22 12/28/22 History clavulanate 125 mg tablet Past Med/Surg History Medical History (Updated 12/28/22 @ 13:39 by Suzanne Frazier PA-C) Abscess of right shoulder (~09/2020) Basal cell carcinoma Benign prostatic hyperplasia with urinary obstruction CAD (coronary artery disease) STENT X 1 (2001) AT [facility] Enlarged prostate High cholesterol History of IBS History of kidney stones History of myocardial infarction STENT X 1 (2001) S/P B/L TKA Stable; Has not had to use NTG since stent placement HTN (hypertension) Hx of basal cell carcinoma Hx of deep venous thrombosis LLE "A LONG TIME AGO" Hx of ulcerative colitis S/p colectomy- ileostomy 1990 and 1994 Hx of vertigo Hypoxia Ileostomy in place Left lower lobe pneumonia Left lower lobe pulmonary nodule 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 No evidence of thrombus on echo May 2022. Lung cancer Macular degeneration Neurogenic bladder NO DOS SANTOS CATHETER 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 PVCs (premature ventricular contractions) Asymptomatic per patient Right tibial fracture Right tibial fracture Sciatica Solitary pulmonary nodule TIA (transient ischemic attack) TIA vs complex migraine February 2019 Type 2 diabetes mellitus Surgical History History of anesthesia reaction SLOW TO WAKE, BREATHING ISSUES, NAUSEA AND VOMITING History of appendectomy History of arthroplasty of right shoulder Right TSA= 05/24/16= Grade 1 view, MAC#4 at [facility] History of cholecystectomy History of colonoscopy History of cystoscopy History of ERCP MULTIPLE History of exploratory laparotomy X2 "COMMON DUCT RECONSTRUCTION" History of hand surgery RT/LEFT THUMBS History of lumbar laminectomy History of total bilateral knee replacement Hx of bilateral cataract extraction Family History Father Myocardial infarction Family/Other Hypertension Nephrolithiasis Sister FH: ovarian cancer Other Family history of breast cancer in mother Social History Smoking Status: Never smoker Second Hand Exposure: No; Do You Dip or Chew Tobacco: No; Hx Alcohol Use: Yes Alcohol type: wine Alcohol Intake Frequency: Monthly or Less Hx Substance Use: No Preferred Language: Tuvaluan Communication Ability: Effective Visual Impairment: Limited Hearing Ability: Use of Hearing Aid Lieutenant Colonel Required: No Beliefs That Will Affect Care: None marital status: Current Living Situation: Spouse Current Living Situation Comment: Currently in [facility] post fall and leg fracture 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 Feels Safe at Home: Yes Diet Comment: avoid heavy roughage during the past year weight has: remained stable Assistive Devices: Walker Review of Systems Constitutional: + fatigue; no fever, no chills and no anorexia Respiratory: no cough, no chest congestion, no dyspnea, no dyspnea on exertion and no hemoptysis Cardiovascular: + edema; no chest pain, no dyspnea, no lightheadedness and no calf pain Gastrointestinal: + abdominal pain; no nausea, no vomiting, no dysphagia, no change in bowel habits, no blood in stools and no melena suprapubic abdominal pain Genitourinary: + dysuria, + difficulty urinating and + urinary hesitancy Integumentary: hx of recent cellulitis right lower leg and wounds on right lower leg following with wound clinic Endocrine: no polydipsia, no polyphagia and no polyuria Hematologic / Lymphatic: + easy bruising Hx of iron deficiency anemia Physical Exam Constitutional: WD/WN, vitals as above ENMT: external ear and nose normal, oropharynx normal Neck: trachea midline, no thyromegaly Respiratory: normal respiratory effort, lungs clear to auscultation Cardiovascular: Rate/Rhythm: regular rate and regular rhythm Heart Sounds: normal S1 and normal S2; no murmur Extremities: + edema; no calf tenderness Gastrointestinal (Abdomen): healed surgical scars, ileostomy left abdomen, stool liquid and brown, large abdominal wall hernias, soft and reducible Dos Santos in place with 200 in bag Skin: mild pallor Neurologic: patellar DTR's 2+ bilat, sensation intact and PERRL, EOMI, accommodation nl, no face palsy, no dysarthria Psychiatric: A+Ox3, euthymic affect Results & Data Results & Data Vital Signs (Past 12 Hours) Vital Signs Temp Pulse Pulse Resp BP BP Pulse Ox 12/28/22 10:00 60 18 111/65 92 12/28/22 09:00 92 12/28/22 09:18 60 12/28/22 07:53 36.1 C L 62 22 116/61 99 O2 Del Method 12/28/22 10:00 Room Air 12/28/22 09:00 Room Air 12/28/22 09:18 12/28/22 07:53 Room Air Laboratory Results Abnormal lab results 12/28/22 12/28/22 12/28/22 Range/Units 09:12 09:12 09:12 WBC 1.72 L (4.8-10.8) K/ul RBC 1.87 L (4.70-6.10) M/uL Hgb 6.6 L* (14.0-18.0) g/dl POC Hgb (14.0-18.0) g/dl Hct 20.7 L* (42.0-52.0) % POC Hct (42-52) % MCV 110.7 H (80.0-100.0) fL MCH 35.3 H (25.0-34.0) pg MCHC 31.9 L (32.0-36.0) g/dL RDW Std Deviation 61.6 H (36.4-46.3) fL RDW Coeff of Chani 15.2 H (11.5-14.5) % Plt Count 23 L* (130-400) K/uL Neut # (Auto) 1.18 L (1.40-6.50) K/uL Lymph # (Auto) 0.34 L (1.2-3.4) K/uL Immature Gran # (Auto) 0.00 L (0.01-0.20) K/uL Platelet Estimate Decreased L (Normal) PT 13.8 H (9.0-12.0) Seconds INR 1.3 H (0.9-1.1) Chloride 113 H (98-107) mmol/L Carbon Dioxide 20 L (21-32) mmol/L POC Total CO2 (24-31) mmol/L POC Anion Gap (16-25) mmol/L POC BUN (7-18) mg/dl BUN 24 H (6-23) mg/dl BUN/Creatinine Ratio 27.9 H (10-20) Glucose 173 H (70-99(Fasting)) mg/dl POC Glucose (other) (70-99) mg/dl Calcium 7.8 L (8.6-10.3) mg/dl Iron 27 L (35-175) mcg/dl Transferrin % Sat 9 L (20-50) % Alkaline Phosphatase 131 H (34-104) U/L Total Protein 4.7 L (6.0-8.3) gm/dl Albumin 2.4 L (3.4-5.0) gm/dl Globulin 2.3 L (2.5-4.0) gm/dl Crossmatch 12/28/22 12/28/22 Range/Units 09:23 10:25 WBC (4.8-10.8) K/ul RBC (4.70-6.10) M/uL Hgb (14.0-18.0) g/dl POC Hgb 7.1 L (14.0-18.0) g/dl Hct (42.0-52.0) % POC Hct 21 L (42-52) % MCV (80.0-100.0) fL MCH (25.0-34.0) pg MCHC (32.0-36.0) g/dL RDW Std Deviation (36.4-46.3) fL RDW Coeff of Chani (11.5-14.5) % Plt Count (130-400) K/uL Neut # (Auto) (1.40-6.50) K/uL Lymph # (Auto) (1.2-3.4) K/uL Immature Gran # (Auto) (0.01-0.20) K/uL Platelet Estimate (Normal) PT (9.0-12.0) Seconds INR (0.9-1.1) Chloride (98-107) mmol/L Carbon Dioxide (21-32) mmol/L POC Total CO2 19 L (24-31) mmol/L POC Anion Gap 15.0 L (16-25) mmol/L POC BUN 21 H (7-18) mg/dl BUN (6-23) mg/dl BUN/Creatinine Ratio (10-20) Glucose (70-99(Fasting)) mg/dl POC Glucose (other) 163 H (70-99) mg/dl Calcium (8.6-10.3) mg/dl Iron (35-175) mcg/dl Transferrin % Sat (20-50) % Alkaline Phosphatase (34-104) U/L Total Protein (6.0-8.3) gm/dl Albumin (3.4-5.0) gm/dl Globulin (2.5-4.0) gm/dl Crossmatch See Detail Diagnostic Findings Abdomen/Pelvis CT 12/28/22 08:50 CT abd pelvis IV con only CLINICAL HISTORY: abdominal pain TECHNIQUE: Helical axial images of the abdomen and pelvis were obtained and displayed. Automated dose lowering techniques and/or adjustment according to patient size were utilized for this exam. This exam was performed with intravenous contrast. CT DOSE: 1446.39 mGy.cm COMPARISON: Comparison is made to CT abdomen pelvis 02/06/2022 FINDINGS: Lower chest: Bibasilar atelectasis versus scarring is seen. Cardiomegaly is seen. Liver: Nodular contour of the liver is seen compatible with cirrhosis. Gallbladder and biliary tree: Patient is status post cholecystectomy. Pneumobilia is seen. Pancreas: Unremarkable, no focal lesions. Spleen: Splenomegaly is noted, the spleen measures 17 cm in craniocaudal dimen corey. Adrenals: Irregular contour of the right kidney is seen. Kidneys and ureters: The right kidney is atrophic in appearance. Bladder: Thickened and trabeculated bladder is seen compatible with chronic outlet obstruction. Reproductive organs: Unremarkable. Bowel: Patient is status post proctocolectomy with left lower quadrant ileostomy. No evidence of bowel dilation is seen. Lymph nodes Retroperitoneal: Subcentimeter lymph nodes are noted. Pelvic: Unremarkable. Mesenteric: Unremarkable. Peritoneum: Normal. Vessels: Atherosclerotic calcifications are seen. Mild variceal disease is seen. The portal vein is patent. Abdominal wall: Bilateral abdominal wall hernias are seen containing fluid in multiple nondilated loops of bowel and fluid. Mild body wall edema is seen. Bones: Degenerative changes in the visualized spine. Multiple compression deformities are again seen in the lumbar spine. IMPRESSION: 1. Cirrhosis and ascites with splenomegaly and a few varices noted. 2. Prominent abdominal hernias. 3. Chronic biliary wall thickening and pneumobilia, unchanged from prior exam. 4. Chronic bladder outlet obstruction. ACT 112: Negative or not required by law. Electronically signed by: Jelani Giordano M.D. 12/28/2022 9:53 AM Supervising Physician Co-Signing Physician Notes Patient seen and examined, chart reviewed, case discussed with Suzanne Frazier PA-C and I agree with the assessment and plan as above except as otherwise noted Labs and images reviewed Jordy is an 82-year-old male with past medical history of ulcerative colitis s/p ileostomy, primary sclerosing cholangitis, coronary artery disease, urethral stricture with surgical intervention and dilations who presents to the emergency department for abdominal pain with inability to void despite the urge to void. Seen by urology this prior week, last note available from 10/14/2022 and was noted to have bladder spasms with a large amount of debris in his urine and catheter. Patient was noted to be intolerant of 18 Scottish catheters, was recommended to have 16 Scottish silicone catheter with regular irrigation. Patient has a history of left lower lobe adenocarcinoma and right upper lobe presumed lung cancer s/p SBRT. Patient recently had urinary catheter removed with voiding trial, culture was concerning for contamination versus UTI and was switched from ciprofloxacin to Augmentin which she has been on twice daily for the last 3 days. He follows with [facility] locally and [facility] [place]. Has a history of chronic thrombocytopenia and requires a guidewire for Dos Santos catheter placement and exchange. Patient seen at the bedside presented with difficulty urinating. +LLQ hernia and pain. +primary biliary cirrhosis. Anemia hgb. No BRB. Dos Santos placed and draining light yellow urine in ER. Incidentally noted to be anemic without acute bleeding. PT with severe iron deficiency prior to admission following with Dr. Jorge Michelle/Onc. On admit Ferritin 23, transferrin saturation 9% on admission. Given anemia with hemoglobin less than 7 will transfuse 2 units and follow for appropriate rise. As long as hemoglobin remained stable we will then add Venofer for iron repletion. Defer Venofer same day as blood transfusion. If no additional blood is required, then can transfuse up to 400 mg IV Venofer daily up to a 1000 mg total per hospitalization pending duration of his admission. Patient was pending an outpatient Venofer transfusion in the near future, may continue ongoing follow-up as outpatient with thiago-onc. Agree with treatment as above. Patient received 1 g calcium while in the ER, ionized calcium 1.26. UCx pending. Continue empiric treatment of UTI, adjust as needed based on culture results. PG Care Time/CCT Total # of Minutes Spent Total Time Spent with Patient: Total time spent is greater than 50% in coordination of care (as documented) at patient's floor/unit and/or counseling patient: Coding Level of Care Code 96445 INT INP/OBS CARE 2/55MIN Diagnoses Iron deficiency anemia D50.9 Complicated urinary tract infection N39.0 Chronic kidney disease with active medical management without dialysis, stage 2 (mild) N18.2 Primary cancer of left upper lobe of lung C34.12 Chronic venous insufficiency I87.2 Venous ulcer of right leg I83.019; L97.919 Inability to urinate R33.9 Primary sclerosing cholangitis K83.0 HTN (hypertension) I10 Hx of ulcerative colitis Z87.19 Hyperlipidemia E78.5
[2022-12-28] MEDS ORDERED: MELATONIN 3 MG TAB PO PRN (14:43)
[2022-12-28] MEDS ORDERED: ONDANSETRON INJ 2 MG/ML 2 ML VIAL IV PRN (14:43)
[2022-12-28] MEDS: ACETAMINOPHEN 325 MG TAB PO PRN ×2 (15:34→23:42)
[2022-12-28] MEDS: AMOXICILLIN/CLAVULANATE 875 MG TAB PO SCH ×2 (15:34→20:21)
[2022-12-28] MEDS ORDERED: TAMSULOSIN HCL 0.4 MG CAP PO SCH (16:30)
[2022-12-28] MEDS: ursodioL 300 MG CAP PO SCH (17:15)
[2022-12-28 20:33] LABS: Hemoglobin 8.4 g/dl (14.0-18.0); Mean Corpuscular Hemoglobin 33.9 pg (25.0-34.0); Mean Corpuscular Hgb Conc 32.3 g/dL (32.0-36.0); Mean Corpuscular Volume 104.8 fL (80.0-100.0); Platelet Count 23 K/uL (130-400); RDW Coefficient of Variation 19.4 % (11.5-14.5); RDW Standard Deviation 73.9 fL (36.4-46.3); Red Blood Count 2.48 M/uL (4.70-6.10); White Blood Count 2.06 K/ul (4.8-10.8)
[2022-12-28] MEDS ORDERED: ROSUVASTATIN CALCIUM 10 MG TAB PO SCH (21:00)
[2022-12-28] MEDS ORDERED: METOPROLOL TARTRATE 25 MG TAB PO SCH (21:00)
[2022-12-29 06:46] LABS: BUN Creatinine Ratio 23.4 (10-20); Calcium 7.8 mg/dl (8.6-10.3); Creatinine Clr Calc Pharmacy 95.1 ml/min; Est GFR (African American) 104.2 ml/min; Est GFR (Non-African American) 89.9 ml/min; Magnesium 1.7 mg/dl (1.7-2.4)
[2022-12-29 06:49] LABS: Hematocrit (blood only) 26.6 % (42.0-52.0); Hemoglobin 8.7 g/dl (14.0-18.0); Mean Corpuscular Hgb Conc 32.7 g/dL (32.0-36.0); Mean Corpuscular Volume 103.9 fL (80.0-100.0); Platelet Count 26 K/uL (130-400); RDW Coefficient of Variation 20.1 % (11.5-14.5); RDW Standard Deviation 75.6 fL (36.4-46.3); Red Blood Count 2.56 M/uL (4.70-6.10); White Blood Count 2.22 K/ul (4.8-10.8)
[2022-12-29] MEDS ORDERED: OXYBUTYNIN CHLORIDE XL 5 MG TABCR PO SCH (09:00)
[2022-12-29] MEDS ORDERED: miSOPROStoL 200 MCG TAB PO SCH (09:00)
[2022-12-29] MEDS ORDERED: IRON SUCROSE 400 MG in SODIUM CHLORIDE 0.9% 250 ML IV ONE (09:00)
[2022-12-29] MEDS ORDERED: FINASTERIDE 5 MG TAB PO SCH (09:00)
[2022-12-29] MEDS ORDERED: METOPROLOL TARTRATE 50 MG TAB PO SCH (09:00)
[2022-12-29] MEDS ORDERED: MAGNESIUM OXIDE 400 MG TAB PO SCH (09:00)
[2022-12-29] MEDS ORDERED: allopurinoL 300 MG TAB PO SCH (09:00)
[2022-12-29] MEDS: ursodioL 300 MG CAP PO SCH (09:08)
[2022-12-29] MEDS: AMOXICILLIN/CLAVULANATE 875 MG TAB PO SCH (09:08)
--- NOTE | 2022-12-29 09:15 | Urology Progress Note ---
Date of Service December 29, 2022 Assessment & Plan (1) Urethral stricture: Plan Very pleasant 82-year-old male with multiple medical comorbidities and a complicated past urologic history for urethral stricture which is previously been managed by catheter. Per the patient, he most recently saw Dr. Keating earlier this week and had a urethrogram and a cystoscopy performed. They opted to remove the catheter. He has been voiding spontaneously but had some pelvic pain. Per his request, he asked for a catheter to be replaced on 12/28/2022. I placed his catheter without any difficulty. Patient stable for discharge home from urologic perspective We will discharge home with a catheter I have sent a message to see the patient back on 01/06/2023 for possible void trial depending on how he would like to manage his bladder moving forward Patient can finish previously prescribed antibiotics by [place] [facility] Admission and Anticipated Discharge Date Admission Date: December 28, 2022 Subjective No acute issues overnight. Catheter draining without issue. Patient denies any discomfort from the Banks. His numbers look better after 2 units of blood and he is currently getting an iron infusion. Review of Systems Review of Systems: 14 point review of systems negative outside of what is listed above in HPI Physical Exam Physical Exam: General: Alert and oriented, no acute distress HEENT: Normocephalic, mucous membranes moist Pulmonary: Nonlabored respirations Abdomen: Nondistended, colostomy in place, parastomal hernia : Banks catheter draining clear yellow urine Extremities: Moves all 4 spontaneously Neuro: No gross deficits Skin: Warm, dry, no rashes noted Results & Data Vital Signs (Past 12 Hours) Vital Signs Temp Pulse Pulse Resp BP Pulse Ox O2 Del Method 12/29/22 07:20 36.9 C 74 18 138/71 90 Room Air 12/29/22 07:36 Room Air 12/29/22 07:03 65 12/29/22 03:42 36.6 C 64 18 129/66 94 Room Air 12/28/22 23:03 36.6 C 59 L 18 123/51 L 91 Room Air 12/28/22 22:50 69 PG Care Time/CCT Total # of Minutes Spent Total Time Spent with Patient: Total time spent is greater than 50% in coordination of care (as documented) at patient's floor/unit and/or counseling patient: Coding Level of Care Code 32598 SUB INP/OBS CARE 2/35MIN Diagnoses Urethral stricture N35.91
--- NOTE | 2022-12-29 10:23 | Communication Note ---
Date of Service: December 29, 2022 By CMS guidelines, a determination that the admission or continued stay is not medically necessary has been made by a member of the UR committee and a physic amanda for this hospital stay, therefore a Code 44 will be completed and the Inpatient admission will be changed to outpatient.
--- NOTE | 2022-12-29 10:27 | Communication Note ---
Date of Service: December 29, 2022 By CMS guidelines, a determination that the admission or continued stay is not medically necessary has been made by a member of the UR committee and a physi roxy for this hospital stay, therefore a Code 44 will be completed and the Inpatient admission will be changed to outpatient. Shakeel Mccord MD Member, Utilization Review Committee
[2022-12-29] MEDS ORDERED: FOLIC ACID 1 MG TAB PO SCH (11:30)
--- NOTE | 2022-12-29 17:33 | Discharge Summary ---
Date of Service December 29, 2022 Principal Diagnosis Urinary retention, anemia Discharge Exam In general he is awake and alert pleasant no distress. HEENT normocephalic atraumatic mucous membranes moist. Breathing unlabored no accessory muscle use good effort. Skin shows no rashes no pallor or icterus. Discharge Data Allergies Allergy/AdvReac Type Severity Reaction Status Date / Time Egg Derived Allergy Intermediate RASH WITH Verified 12/26/22 13:52 LARGE QUANTITIES metformin Allergy Intermediate GI ISSUES Verified 12/26/22 13:52 pollen extracts Allergy Intermediate ITCHY Verified 12/26/22 13:52 EYES, SNEEZING, CONGESTION codeine AdvReac Intermediate N/V, Verified 12/26/22 13:52 HYPOTENSTION fentanyl AdvReac Intermediate EXTREME Verified 12/26/22 13:52 NAUSEA; BP DROPS meperidine AdvReac Intermediate N/V, Verified 12/26/22 13:52 HYPOTENSTION morphine AdvReac Intermediate N/V, Verified 12/26/22 13:52 HYPOTENSTION Flu Virus Vaccine Allergy Intermediate AVOIDS DUE Uncoded 12/26/22 13:52 TO EGG ALLERGY NARCOTICS AdvReac Intermediate N/V, Uncoded 12/26/22 13:52 HYPOTENSTION Consultations 12/28/22 10:20 ED Decision to Admit Stat Ordered Studies 12/28/22 08:50 CT abd pelvis IV con only Stat Hospital Course (1) Inability to urinate: Extensive urological history with hx of urethral stricture S/P Banks ad draining well urology followingstable for discharge and will have close outpatient follow-up established (2) Iron deficiency anemia: Transfuse 2 units pRBCs Dose of IV Venofer given today Has follow-up with on (3) Complicated urinary tract infection: Uncertain if he still has an infection or noton Augmentinculture, obviously early, but no growth to datediscussed with patient and he will follow for results, although I suspect no change in antibiotics will be needed (4) Chronic kidney disease with active medical management without dialysis, stage 2 (mild): Chronic stable CKD labile is more function of his age and the Cockcroft-Gault equation that his creatinine (5) Primary cancer of left upper lobe of lung: Chronic, stable Per patient and S/P radiation and resolved (6) Chronic venous insufficiency: Chronic (7) Venous ulcer of right leg: Chronic and following with wound clinic (8) Primary sclerosing cholangitis: Chronic and Stable follows with Dr Mcclellan in [place] Continue ursodiol (9) HTN (hypertension): Chronic and stable Continue Metoprolol (10) Hx of ulcerative colitis: Chronic and stable with ileostomy large abdominal wall hernias not a surgical candidate (11) Hyperlipidemia: Chronic and stable continue rosuvastatin Total Time Total Time Spent Total Time Spent (In Minutes): Less than 30 Discharge Plan Discharge Items Patient Disposition: Home - Self-Care Reason For Visit: INABILITY TO URINATE/SEVERE ANEMIA REQURING TRANSF Discharge Diagnosis: urinary retention, anemia Activity: Resume your previous activity Non-emergency contact: Primary Care Provider, Oncologist and Urologist Call non-emergency contact if: you have any medication questions Follow-up/Referrals: Tom Bucio MD [Primary Care Provider] - Diet: Regular Addtl Attending Provider Instructions: consider this hospitalization a "pit stop" to tune things up: -urinary retention -- the catheter has been placed to help remedy that, and the urology team will make sure that you have follow up/follow through on this -low cell counts - the transfusion has brought your hemoglobin up to a very respectable 8.7 - but this problem will require ongoing follow up with Dr Patle (ideally be seen this coming week) finish the antibiotics prescribed by [facility] -- a urine culture is still pending (they often take 1-2 days to fully grow and report out - although with no signs of bacteria by this point it's less likely that it's going to show anything - ie the prior antibiotics are highly likely to be working) Pending Studies at Discharge: Yes (urine culture) Stand-Alone Forms: [facility] C[facility] Medications and DC Order Prescriptions: Continued Align 4 mg capsule 4 mg PO DAILY PRN (Reason: WHEN TAKING ANTIBIOTICS) Patient Comments: as needed with antibiotics acetaminophen [Tylenol Extra Strength] 500 mg tablet 500 - 1,000 mg PO Q6H PRN (Reason: Pain) PreserVision AREDS 2,148 mcg-113 mg-45 mg-17.4mg tablet 2 tab PO BIDM Rx Instructions: administer with AM and PM meals Prevagen 1 tab PO QAM tolterodine [Detrol] 2 mg tablet 4 mg PO DAILY ciprofloxacin HCl [Cipro] 500 mg tablet 500 mg PO BID PRN (Reason: Other) Rx Instructions: prn for sclerosing cholangitis omeprazole 20 mg capsule,delayed release(DR/EC) 20 mg PO DAILY diclofenac sodium 75 mg tablet,delayed release (DR/EC) 75 mg PO DAILY rosuvastatin 10 mg tablet 10 mg PO HS alfuzosin 10 mg tablet extended release 24 hr 10 mg PO QDD Rx Instructions: administer after the same meal each day aspirin 81 mg tablet,delayed release (DR/EC) 81 mg PO DAILY folic acid 1 mg tablet 1 mg PO QDL alendronate [Fosamax] 70 mg Tablet 70 mg PO WK Patient Comments: TAKES ON FRI. Rx Instructions: [place] allopurinol 300 mg Tablet 300 mg PO QAM finasteride [Proscar] 5 mg Tablet 5 mg PO QAM magnesium oxide 400 mg magnesium Tablet 400 mg PO QAM ursodiol 300 mg capsule 300 mg PO BIDM meclizine [Medi-Meclizine] 25 mg Tablet 25 mg PO TID PRN (Reason: Vertigo) cranberry 500 mg Capsule 500 mg PO QAM loratadine [Claritin] 10 mg Tablet 10 mg PO QAM misoprostol [Cytotec] 100 mcg Tablet 200 mcg PO QAM calcium carbonate-vitamin D3 [Calcium 500 + D] 500 mg(1,250mg) -200 unit Tablet 1 tab PO QDL omega 7-dll-xer-fish oil [Fish Oil] 1,000 mg (120 mg-180 mg) Capsule 1 cap PO QDL metoprolol tartrate 25 mg Tablet 75 mg PO QPM Qty: 90 0RF Rx Instructions: TOTAL DOSE 75 MG--TAKES WITH 50 MG TAB. melatonin 3 mg tablet 5 mg PO HS PRN (Reason: SLEEP) Soothe Lubricant 0.6-0.6 % Dropperette 1 drp OPHTHALMIC (EYE) BID Dry Eye [place] Benefits 667-250 mg-unit Capsule 3 cap PO QDL metoprolol tartrate 50 mg tablet 50 mg PO DAILY amoxicillin-pot clavulanate 875-125 mg tablet 1 tab PO Q12H Discharge Orders: Discharge Order (Routine); Ordered 12/29/22 Ordered By: Viktor Emerson Admission Data Admit Date/Time: 12/28/22 12:13 Attending Provider: Viktor Emerson Admit Provider: Bello Rodriguez Primary Care Provider: Tom Bucio Other Providers: Bello Rodriguez Other Interventions: Discharge Summary Assessment (RN) Last Done: 12/29/22 11:00 Coding Level of Care Code 16242 IN/OBS DISCH 30 MIN/LESS Diagnoses Inability to urinate R33.9 Iron deficiency anemia D50.9 Complicated urinary tract infection N39.0 Chronic kidney disease with active medical management without dialysis, stage 2 (mild) N18.2 Primary cancer of left upper lobe of lung C34.12 Chronic venous insufficiency I87.2 Venous ulcer of right leg I83.019; L97.919 Primary sclerosing cholangitis K83.0 HTN (hypertension) I10 Hx of ulcerative colitis Z87.19 Hyperlipidemia E78.5
[2023-01-01] MEDS ORDERED: ALENDRONATE SODIUM 70 MG TAB PO SCH (06:30)
== END 2022-12-29 11:17 | disposition home or self-care (01) ==
LOC: ED 07:50 → 2N 12:13 → SUATTDRO 12:13 → INTOOBSV 12:13 → 2N 14:01

== ENCOUNTER 2023-06-14 09:40 | Inpatient (IN) ==
[~2023-06-14 09:40] MED LIST changes: +ETOMIDATE 2 MG/ML 20 ML VIAL IV ONE; -GENTAMICIN SULFATE 240 MG in DEXTROSE 5% 100 ML IV SCH; -GENTAMICIN SULFATE 40 MG/ML 2 ML VIAL IV SCH; -LR 15ML/HR IV SCH; +ROCURONIUM BROMIDE 10 MG/ML 5 ML VIAL IV ONE; +fentaNYL citrate PF 100 MCG/2 ML VIAL IV ONE
--- OUTSIDE RECORDS SUMMARY | 2023-06-14 09:46 | External Medical Summary | Summary of Care ---
Author Name Unknown Organization [facility] Address [address] [place] [address] Phone [phone] Care Team Providers Care Bone Tender Name Role Phone Tom Bucio MD Primary Care Provider [phone] Reason for Visit * Reason Onset Date Comments Test Results 06/04/2023 Encounter Details Date Type Department Care Team (Late st Contact Info) Description 06/04/2023 Telephone Hematology/Oncology Treatment, [place] [address] [place] [address] Bert Patel MD [address] [place] [address] Test Results Allergies Active Allergy Reactions Criticality Noted Date Comments Meperidine 10/21/2018 Morphine 11/27/2017 hypotension Oxycodone Hypotension,Nausea/v omit ing High 11/14/2017 Cant take any narcotics--only thing that works is Propofol documented as of this encounter (statuses as of 06/05/2023) Medications Medication Sig Dispensed Refills Start Date End Date Status Butte 3 1200 MG CAPS Take 1 Cap by mouth 4 times a day. 0 Active allopurinol (ZYLOPRIM) 300 MG Tablet Take 1 Tablet by mouth in the morning. 0 Active omeprazole (PRILOSEC) 20 MG CPDR Take 1 Capsule by mouth in the morning. 0 Active ursodiol (ACTIGALL) 300 MG Capsule Take 1 Capsule by mouth in the morning and 1 Capsule before bedtime. 0 Active diclofenac sodium (VOLTAREN) 75 MG TBEC Take 1 Tablet by mouth in the morning. 0 Active misoprostol (CYTOTEC) 200 MCG Tablet Take 1 Tablet by mouth in the morning. 0 Active Calcium Carbonate-Vitamin D 600-400 MG-UNIT Oral Tablet Take 1 Tablet by mouth in the morning. 0 Active Alfuzosin HCl ER 10 MG TB24 Take 1 Tablet by mouth in the morning. 0 Active folic acid 1 MG Tablet Take 1 Tablet by mouth in the morning. 0 Active finasteride (PROSCAR) 5 MG Tablet Take 1 Tablet by mouth in the morning. 0 Active Rosuvastatin Calcium 10 MG Oral Tablet Take 1 Tablet by mouth in the morning. 0 Active alendronate (FOSAMAX) 70 MG Tablet Take 1 Tablet by mouth once a week. 0 Active meclizine (ANTIVERT) 25 MG Tablet Take 25 mg by mouth 3 times a day as needed. 0 Active Magnesium Oxide 400 (240 Mg) MG Tablet Take 1 Tablet by mouth in the morning. 0 Active Butte-3 Fat Ac-Cholecalciferol (DRY EYE OMEGA BENEFITS/VIT D-3) 667-250 MG-UNIT CAPS Take 4 Caps by mouth daily. 0 Active Cranberry 500 MG Oral Capsule Take 1 Capsule by mouth in the morning. 0 Active Multiple Vitamins-Minerals (PRESERVISION AREDS 2+MULTI VIT) CAPS Take 1 Cap by mouth 2 times a day. 0 Active Melatonin 3 MG Oral Capsule Take 1 Capsule by mouth at bedtime. 0 Active Loratadine 10 MG Oral Tablet (Claritin) Take 1 Tablet by mouth daily as needed for Rhinitis. 0 Active Excedrin Extra Strength 250-250-65 MG Oral Tablet (Aspirin-Acetaminop hen-Caffeine) Take 1 Tab by mouth every 6 hours as needed. 0 Active Metoprolol Tartrate 100 MG Oral Tablet (Lopressor) Take 1 Tab by mouth daily. 30 Tab 0 02/06/2021 Active Additional Information Patient taking differently: 50 mgOralBID (.AM/PM), Reported on 07/19/2022 Acetaminophen 325 MG Oral Tablet (Tylenol) Take 3 Tabs by mouth every 6 hours. 30 Tab 0 02/05/2021 Active Amoxicillin-Pot Clavulanate 500-125 MG Oral Tablet (Augmentin) Take by mouth 1 Tablet in the morning AND 1 Tablet at noon AND 1 Tablet before bedtime. 0 Active Fluconazole 200 MG Oral Tablet (Diflucan) Take by mouth 200 mg in the morning. 0 Active Aspirin 81 MG Oral Tablet Delayed Release Take by mouth 81 mg in the morning. 0 Active Align Prebiotic-Probiotic 5-1.25 MG-GM Oral Tablet Chewable Take by mouth . 0 Acti ve Ciprofloxacin HCl 500 MG Oral Tablet (Cipro) Take 1 Tablet by mouth 2 times a day as needed. 0 Active Prevagen 10 MG Oral Capsule (Apoaequorin) Take by mouth . 0 Active Lubricant Eye Drops 0.4-0.3 % Ophthalmic Solution (Polyethyl Glycol-Propyl Glycol) Instill into eye as needed for Dry eyes. 0 Active Amoxicillin 875 MG Oral Tablet Take 1 Tablet by mouth in the morning and 1 Tablet before bedtime. 0 Active Nirmatrelvir&Ritona vir 300/100 20 x 150 MG & 10 x 100MG Oral Tablet Therapy Pack (Paxlovid (300/100)) Take 2 pink tablets of Nirmatrelvir and 1 white tablet of Ritonavir two times a day by mouth. 30 Tablet 0 03/21/2023 Active documented as of this encounter (statuses as of 06/05/2023) Active Problems Problem Noted Date Diagnosed Date Thrombocytopenia 06/26/2022 Cirrhosis of liver without ascites 06/26/2022 History of basal cell carcinoma (BCC) of skin Overview: seeLester mclean Dr, Dr, Shupp sees Dr, Shupp sees Dr, Shupp Enlarged prostate 02/05/2021 Overview: sees Dr. Daley seecaridad Daley seecaridad Daley sees Dr. Daley History of venous thrombosis 02/05/2021 Diabetes mellitus 02/05/2021 Sensorineural hearing loss 02/05/2021 Abdominal wall hernia 02/05/2021 Arteriosclerosis of coronary artery 02/05/2021 Overview: Mar 06, 2015 Entered By: RENO OLIVAS MD Comment: prior [place] 2001 Benign prostatic hyperplasia without urinary obs truction 02/05/2021 Calculus of kidney 02/05/2021 Gastroesophageal reflux disease 02/05/2021 Gout 02/05/2021 Gross hematuria 02/05/2021 History of total colectomy 02/05/2021 Overview: Mar 16, 2007 Entered By: RENO OLIVAS MD Comment: for ulcerative colitis Hyperlipidemia 02/05/2021 Hypertension 02/05/2021 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 Dx in 1959's. Dx in 1959's. Dx in 1959's. Mar 03, 2018 Entered By: HERIBERTO HEWITT Comment: bilateral knee and right shoduler replacement Sclerosing cholangitis 01/25/2021 Overview: sees Dr. Gayle Mcclellan in [facility] sees Dr. Gayle Mcclellan in [facility] sees Dr. Gayle Mcclellan in [facility] sees Dr. Gayle Mcclellan in [facility] Aug 31, 2003 Entered By: SHAYY BAILEY Comment: progressive sclerosing cholangitisApr 10, 2018 Entered By: HERIBERTO HEWITT Comment: ERCP non va 02/26/18 open biliary and pancreatic sphincerotomhy both open, cytology negative UC (ulcerative colitis) 01/25/2021 Overview: Feb 21, 2020 Entered By: BARBARA FRANKLIN Comment: per patient by historyAu2019 Entered By: BARBARA FRANKLIN Comment: gets ERCP every [address] Zaheer Pitt in [place] Sees Dr. Zaheer Pitt in [place] Sees Dr. Zaheer Pitt in [place] Sees Dr. Zaheer Pitt in [place] Venous stasis dermatitis 01/25/2021 Wedge compression fracture of T12 vertebra 01/25 Arthritis of carpometacarpal (CMC) joint of both thumbs 08/11/2019 Iron deficiency anemia 06/16/2018 Overview: sees sees sees sees Splenomegaly 03/17/2018 Pancytopenia 11/14/2017 Overview: sees sees sees sees Dr. Paetl Status post ileostomy 11/14/2017 Overview: with stomy and stomy hernia with stomy and stomy hernia with stomy and stomy hernia with stomy and stomy hernia B12 deficiency 11/14/2017 documented as of this encounter (statuses as of 06/05/2023) Immunizations Name Administration Dates Next Due COVID-19 mRNA, LNP-s, No Pre serve, 2-Dose Series (Oneexchangestreet) 08/28/2020,08/07/2020 documented as of this encounter Social History Tobacco Use Types Packs/Day Years Used Date Smoking Tobacco: Never Smokeless Tobacco: Never Alcohol Use Standard Drinks/Week Comments Yes 0 (1 standard drink = 0.6 oz pur e alcohol) wine Sex and Gender Information Value Date Recorded Sex Assigned at Not on file Gender Identity Not on file Sexual Orientation Not on file Job Start Date Occupation Industry Not on file Not on file Not on file documented as of this encounter Functional Status Functional Status Response Date of Assess ment Are you deaf or do you have serious difficulty h earing? No 02/02/2021 Are you blind or do you have serious difficulty seeing, even when wearing glasses? No 02/02/2021 Do you have serious difficul ty walking or climbing stairs? (5 years old or older) Yes 02/02/2021 Do you have difficulty dress ing or bathing? (5 years old or older) No 02/02/2021 Because of a physical, menta l, or emotional condition, do you have difficulty doing errands alone such as visiting a doctor s office or shopping? (15 years old or older) No 02/03/20 21 Cognitive Status Response Date of Assessm ent Because of a physical, menta l, or emotional condition, do you have serious difficulty concentrating, remembering, or making decisions? (5 years old or older) No 02/02/2021 documented as of this encounter Miscellaneous Notes * Telephone Encounter - Jayashree Prieto RN - 06/05/2023 8:50 AM EST Per : "Blood workup done on 06/04/2023: - Platelet count has remained on the lower side around 17,000, - Stable mild anemia. Hemoglobin level 8.7. WBC 3300. - Ferritin level -> 146 - Serum iron 60, TIBC 204, iron saturation 29%. Overall stable pancytopenia. No evidence of iron deficiency. Will repeat CBCD, ferritin, iron profile in about 1 months. If he has evidence of iron deficient, will give her IV iron. Regarding thrombocytopenia, will observe. " MyG sent, standing orders in chart. * Telephone Encounter - Jayashree Prieto RN - 06/04/2023 9:25 AM EST Received TT from lab- plt 17. Patient with pancytopenia, likely related to splenomegaly. Component Latest Ref Rng 12/05/2022 12/26/2022 01/02/2023 06/04/2023 PLT 140 - 400 K/uL 33 (L) 27 (L) 15 (LL) 17 (LL) documented in this encounter Plan of Treatment Upcoming Encounters Date Type Department Care Team (Late st Contact Info) Description 09/04/2023 1:15 PM EST Office Visit [facility]Oncology [place] [facility] [address] [facility] [place] [address] Bert Patel MD [address] [facility] [place] [address] Health Maintenance Due Date Last Done Comments Depression Screening 1950 Diabetic Eye Exam 1956 Diabetic Foot Exam 1956 DTaP,Tdap,and Td Vaccines (1 - Tdap) 1957 VITAMIN D LEVEL ONCE IN A LIFETIME-USE SMARTSET# [id number] 1978 DXA Scan 1988 Hepatitis B (1 of 3 - Risk 3-dose series) 1998 Zoster Vaccines (2 of 3) 03/05/2012 01/09/2012 Albumin/Creatinine Ratio 05/11/2022 05/11/2021 HbA1c 08/08/2022 02/05/2022, 05/11/2021 COVID-19 Vaccine (3 - 2022-2 4 season) 2023 08/28/2020, 08/07/2020 Influenza Vaccine (FLU shot) (#1) 2023 Pneumococcal Vaccine: 65+ Years Completed 07/20/2018, 07/07/2008, 11/16/2003 GARDASIL-HPV IMMUNIZATION SERIES Aged Out No longer eligible b ased on patient's age to complete this topic MENINGOCOCCAL (MENACTRA/MENVEO) Aged Out No longer eligible b ased on patient's age to complete this topic documented as of this encounter Medical Devices Not on filedocumented as of this encounter Advance Directives Latest Code Status on File Code Status Date Activated Date Inactivated Comments Full Code 02/02/2021 1:18 PM 02/06/2021 4:00 PM This order reflects the patients wishes and were consensually agreed upon. Care Teams Bone Tender Relationship Specialty Start Date End Date Tom Bucio MD [address] [place] [address] PCP - General Family Medicine 10/14/17 documented as of this encounter
--- OUTSIDE RECORDS SUMMARY | 2023-06-14 09:46 | External Medical Summary ---
Author Name Unknown Address Unknown Organization K09[facility] [id number] Laboratory Report Ordering Provider Test Date Status CLAYTON CAMACHO 06/04/2023 08:46:13 Final Observation Date Value Abnormality Reference (Units ) Status WBC, Total 06/04/2023 08:46:13 3.33 Below low normal 4.00-10.80 (K/uL) Final RBC 06/04/2023 08:46:13 2.10 4.50-5.25 (M/uL) Final Hemoglobin 06/04/2023 08:46:13 8.7 Below low normal 14.0-16.8 (g/dL) Final HCT 06/04/2023 08:46:13 26.7 Below low normal 40.0-48.4 (%) Final MCV 06/04/2023 08:46:13 127.1 82.0-99.5 (fL) Final MCH 06/04/2023 08:46:13 41.4 27.0-34.0 (pg) Final MCHC 06/04/2023 08:46:13 32.6 32.0-36.0 (g/dL) Final RDW 06/04/2023 08:46:13 14.1 11.5-15.5 (%) Final Platelets 06/04/2023 08:46:13 17 Below lower panic limits 140-400 (K/uL) Final MPV 06/04/2023 08:46:13 Final No result - abnormal platele t distribution. Performing Location [facility] [id number]
--- OUTSIDE RECORDS SUMMARY | 2023-06-14 09:46 | External Medical Summary | Summary of Care ---
Author Name Unknown Organization [facility] Address [address] [place] [address] Phone [phone] Care Team Providers Care Booker Name Role Phone Tom Bucio MD Primary Care Provider [phone] Reason for Visit * Reason Onset Date Comments Test Results 06/04/2023 Encounter Details Date Type Department Care Team (Late st Contact Info) Description 06/04/2023 Telephone Hematology/Oncology Treatment, [place] [address] [place] [address] Bert Patle MD [address] [place] [address] Test Results Allergies Active Allergy Reactions Criticality Noted Date Comments Meperidine 10/21/2018 Morphine 11/27/2017 hypotension Oxycodone Hypotension,Nausea/v omit ing High 11/14/2017 Cant take any narcotics--only thing that works is Propofol documented as of this encounter (statuses as of 06/04/2023) Medications Medication Sig Dispensed Refills Start Date End Date Status Enderlin 3 1200 MG CAPS Take 1 Cap [...] by mouth in the morning. 0 Active Enderlin-3 Fat Ac-Cholecalciferol (DRY EYE OMEGA BENEFITS/VIT D-3) [...] as of this encounter (statuses as of 06/04/2023) Active Problems Problem Noted Date Diagnosed Date [...] Entered By: RENO OLIVAS MD Comment: prior [place] 2001 Benign prostatic hyperplasia without urinary obs [...] 01/25/2021 Overview: sees Dr. Gayle Mcclellan in [facility] sees Dr. Gayle Mcclellan in [facility] sees Dr. Gayle Mcclellan in [facility] sees Dr. Gayle Mcclellan in [facility] Aug 31, 2003 Entered By: SHAYY [...] [address] Zaheer Pitt in [place] Sees Dr. Zaheer Pitt in [place] Sees Dr. Zaheer Pitt in [place] Sees Dr. Zaheer Pitt in [place] Venous stasis dermatitis 01/25/2021 Wedge compression fracture of T12 vertebra 01/25 Arthritis of carpometacarpal (CMC) joint of both thumbs 08/11/2019 Iron deficiency anemia 06/16/2018 Overview: sees sees sees sees Splenomegaly 03/17/2018 Pancytopenia 11/14/2017 Overview: sees sees sees sees Status post ileostomy 11/14/2017 Overview: with stomy and stomy hernia with stomy and stomy hernia with stomy and stomy hernia with stomy and stomy hernia B12 deficiency 11/14/2017 documented as of this encounter (statuses as of 06/04/2023) Immunizations Name Administration Dates Next Due COVID-19 mRNA, LNP-s, No Pre serve, 2-Dose Series (SafeTool) 08/28/2020,08/07/2020 documented as of this encounter Social [...] 09/04/2023 1:15 PM EST Office Visit Hematology/Oncology [facility] [place] [address] [facility] [place] [address] Bert Patel MD [address] [facility] [place] [address] Health Maintenance Due Date Last Done Comments Depression Screening 1950 Diabetic Eye Exam 1956 Diabetic Foot Exam 1956 DTaP,Tdap,and Td Vaccines (1 - Tdap) 1957 VITAMIN D LEVEL ONCE IN A LIFETIME-USE SMARTSET# [id number] 1978 DXA Scan 1988 Hepatitis B (1 [...] 02/02/2021 1:18 PM 02/06/2021 4:00 PM This o rder reflects the patients wishes and were consensually agreed upon. Care Teams Booker Relationship Specialty Start Date End Date Tom Bucio MD [address] [place] [address] PCP - General Family Medicine 10/14/17 documented as of this encounter
--- OUTSIDE RECORDS SUMMARY | 2023-06-14 09:46 | External Medical Summary | Summary of Care ---
Author Name Unknown Organization [facility] Address [address] [place] [address] Phone [phone] Care Team Providers Care Cmo & President Name Role Phone Tom Bucio MD Primary Care Provider [phone] Reason for Visit * Reason Comments Outpatient Testing Encounter Details Date Type Department Care Team (Late st Contact Info) Description 06/04/2023 8:50 AM EST Laboratory Laboratory [facility] [place] [address] [place] [id number] [place], [facility] [address] [place] [address] Iron deficiency anemia, unspecified iron deficiency anemia type Allergies Active Allergy Reactions Criticality Noted Date Comments Meperidine 10/21/2018 Morphine 11/27/2017 hypotension Oxycodone Hypotension,Nausea/v omit ing High 11/14/2017 Cant take any narcotics--only thing that works is Propofol documented as of this encounter (statuses as of 06/04/2023) Medications Medication Sig Dispensed Refills Start Date End Date Status [place] 3 1200 MG CAPS Take 1 Cap [...] by mouth in the morning. 0 Active [place]-3 Fat Ac-Cholecalciferol (DRY EYE OMEGA BENEFITS/VIT D-3) [...] basal cell carcinoma (BCC) of skin Overview: sees Lester Sinclair Dr, Sh[place] sees Dr, Shupp sees Dr, [place] Enlarged prostate 02/05/2021 Overview: sees Dr. Daley sees Dr. Daley seecaridad Daley sees Dr. Daley History of venous thrombosis 02/05/2021 Diabetes mellitus 02/05/2021 Sensorineural hearing loss 02/05/2021 Abdominal wall hernia 02/05/2021 Arteriosclerosis of coronary artery 02/05/2021 Overview: Mar 06, 2015 Entered By: RENO OLIVAS MD Comment: prior [place] 2001 Benign prostatic hyperplasia without urinary obs [...] 01/25/2021 Overview: sees Dr. Gayle Mcclellan in [facility] sees Dr. Gayle Mcclellan in [facility] sees Dr. Gayle Mcclellan in [facility] sees Dr. Gayle Mcclellan in [facility] Aug 31, 2003 Entered By: SHAYY BAILEY Comment: progressive sclerosing cholangitisApr 10, 2018 Entered By: HERIBERTO HEWITT Comment: ERCP non va 02/26/18 open biliary and pancreatic sphincerotomhy both open, cytology negative UC (ulcerative colitis) 01/25/2021 Overview: Feb 21, 2020 Entered By: BARBARA FRANKLIN Comment: per patient by historyAug 2019 Entered By: BARBARA FRANKLIN Comment: gets ERCP every [address] Zaheer Pitt in [place] Sees Dr. Zaheer Pitt in [place] Sees Dr. Zaheer Pitt in [place] Sees Dr. Zaheer Pitt in [place] Venous stasis dermatitis 01/25/2021 Wedge compression fracture [...] mRNA, LNP-s, No Pre serve, 2-Dose Series ([employer]) 08/28/2020,08/07/2020 documented as of this encounter Social [...] No 02/02/2021 documented as of this encounter Plan of Treatment Upcoming Encounters Date Type Department Care Team (Late st Contact Info) Description 09/04/2023 1:15 PM EST Office Visit Hematology/Oncology [place] [address] [place] [address] Bert Patel MD [address] [facility] [place] [address] Pending Results Name Type Priority Associated Diagnoses Date /Time CBC WITH WBC DIFFERENTIAL Lab STAT Iron deficiency anemia, unspecified iron deficiency anemia type 06/04/2023 8:46 AM EST FERRITIN Lab STAT Iron deficiency anemia, unspecified iron deficiency anemia type 06/04/2023 8:46 AM EST IRON SCREEN, INCLUDING TIBC Lab STAT Iron deficiency anemia, unspecified iron deficiency anemia type 06/04/2023 8:46 AM EST CBC Lab STAT Iron deficiency anemia, unspecified iron deficiency anemia type 06/04/2023 8:46 AM EST DIFFERENTIAL, AUTOMATED Lab STAT Iron deficiency anemia, unspecified iron deficiency anemia type 06/04/2023 8:46 AM EST Health Maintenance Due Date Last Done Comments Depression Screening 1950 Diabetic Eye Exam 1956 Diabetic Foot Exam 1956 DTaP,Tdap,and Td Vaccines (1 - Tdap) 1957 VITAMIN D LEVEL ONCE IN A LIFETIME-USE SMARTSET# [id number] 1978 DXA Scan 1988 Hepatitis B (1 [...] Not on filedocumented as of this encounter Visit Diagnoses Diagnosis Iron deficiency anemia, unspecified iron deficiency anemia type documented in this encounter Advance Directives Latest Code Status on File Code Status Date Activated Date Inactivated Comments Full Code 02/02/2021 1:18 PM 02/06/2021 4:00 PM This o rder reflects the patients wishes and were consensually agreed upon. Care Teams Cmo & President Relationship Specialty Start Date End Date Tom Bucio MD [address] [place] [address] PCP - General Family Medicine 10/14/17 documented as of this encounter
--- OUTSIDE RECORDS SUMMARY | 2023-06-14 09:46 | External Medical Summary | Summary of Care ---
Author Name Unknown Organization [facility] Address [address] [place] [address] Phone [phone] Care Team Providers Care Manager Labor Relations Name Role Phone Tom Bucio MD Primary Care Provider [phone] Reason for Visit * Reason Onset Date Comments Test Results 06/04/2023 Encounter Details Date Type Department Care Team (Late st Contact Info) Description 06/04/2023 Telephone Hematology/Oncology Treatment, [place] [address] [place] [address] Bert Patel MD [address] [place] [address] Test Results Allergies Active Allergy Reactions Criticality Noted Date Comments Meperidine 10/21/2018 Morphine 11/27/2017 hypotension Oxycodone Hypotension,Nausea/v omit ing High 11/14/2017 Cant take any narcotics--only thing that works is Propofol documented as of this encounter (statuses as of 06/04/2023) Medications Medication Sig Dispensed Refills Start Date End Date Status [place] 3 1200 MG CAPS Take 1 Cap [...] by mouth in the morning. 0 Active [place]-3 Fat Ac-Cholecalciferol (DRY EYE OMEGA BENEFITS/VIT D-3) [...] Entered By: RENO OLIVAS MD Comment: prior [place] 2001 Benign prostatic hyperplasia without urinary obs [...] 01/25/2021 Overview: sees Dr. Gayle Mcclellan in [facility] sees Dr. Gayle Mcclellan in [facility] sees Dr. Gayle Mcclellan in [facility] sees Dr. Gayle Mcclellan in [facility] Aug 31, 2003 Entered By: SHAYY BAILEY Comment: progressive sclerosing cholangitisApr 10, 2018 Entered By: HERIBERTO HEWITT Comment: ERCP non va 02/26/18 open biliary and pancreatic sphincerotomhy both open, cytology negative UC (ulcerative colitis) 01/25/2021 Overview: Feb 21, 2020 Entered By: BARBARA FRANKLIN Comment: per patient by historyAu2019 Entered By: BARBARA FRANKLIN Comment: gets ERCP every [address] Zaheer Pitt in [place] Sees Dr. Zaheer Pitt in [place] Sees Dr. Zaheer Pitt in [place] Sees Dr. Zaheer Pitt in [place] Venous stasis dermatitis 01/25/2021 Wedge compression fracture [...] mRNA, LNP-s, No Pre serve, 2-Dose Series (Neohapsis) 08/28/2020,08/07/2020 documented as of this encounter Social [...] PM EST Office Visit Hematology/Oncology [facility] [place] [address] [place] [address] Bert Patel MD [address] [facility] [place] [address] Health Maintenance Due Date Last Done Comments Depression Screening 1950 Diabetic Eye Exam 1956 Diabetic Foot Exam 1956 DTaP,Tdap,and Td Vaccines (1 - Tdap) 1957 VITAMIN D LEVEL ONCE IN A LIFETIME-USE SMARTSET# [id number] 1978 DXA Scan 1988 Hepatitis B (1 [...] and were consensually agreed upon. Care Teams Manager Labor Relations Relationship Specialty Start Date End Date Tom Bucio MD [address] [place] [address] PCP - General Family Medicine 10/14/17 documented as of this encounter
--- OUTSIDE RECORDS SUMMARY | 2023-06-14 09:47 | External Medical Summary ---
Author Name Unknown Address Unknown Organization [facility] [place] [id number] Laboratory Report Ordering Provider Test Date Status CLAYTON CAMACHO 06/04/2023 08:46:13 Final Observation Date Value Abnormality Reference (Units ) Status Nucleated erythrocytes/100 leukocytes [Ratio] in Blood by Automated count 06/04/2023 08:46:13 Final Ovalocytes [Presence] in Blood by Light microscopy 06/04/2023 08:46:13 Moderate Abnormal None Seen Final Schistocytes 06/04/2023 08:46:13 Few Abnormal None Seen Final Performing Location [place] [address]
--- OUTSIDE RECORDS SUMMARY | 2023-06-14 09:47 | External Medical Summary ---
Author Name Unknown Address Unknown Organization [facility] [place] [address] Laboratory Report Ordering Provider Test Date Status CLAYTON CAMACHO 06/04/2023 08:46:13 Final Observation Date Value Abnormality Reference (Units ) Status SYNC LEUKOCYTES IN BLOOD BY AUTOMATED COUNT 06/04/2023 08:46:13 3.33 Below low normal 4.00-10.80 (K/uL) Final Segs 06/04/2023 08:46:13 75.1 Above high normal 40.0-75.0 (%) Final Lymphs % 06/04/2023 08:46:13 12.3 Below low normal 18.0-42.0 (%) Final Monos 06/04/2023 08:46:13 8.4 1.0-11.0 (%) Final Eosinophils 06/04/2023 08:46:13 3.3 0.0-6.0 (%) Final Basos 06/04/2023 08:46:13 0.9 0.0-2.0 (%) Final Absolute Segs 06/04/2023 08:46:13 2.50 1.80-7.70 (K/uL) Final Lymphs, absolute 06/04/2023 08:46:13 0.41 Below low normal 1.00-4.80 (K/ul) Final Monos, Abs 06/04/2023 08:46:13 0.28 0.00-1.10 (K/uL) Final Eos, Abs 06/04/2023 08:46:13 0.11 0.00-0.70 (K/uL) Final Basos, Abs 06/04/2023 08:46:13 0.03 0.00-0.20 (K/uL) Final Performing Location [place] [address]
--- OUTSIDE RECORDS SUMMARY | 2023-06-14 09:47 | External Medical Summary | Continuity of Care Document ---
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 Name Role Phone Tom Bucio Primary Care Physician [phone] Encounter [facility] [id number] Date(s): 04/10/23 - 04/10/[address] [address] [phone] Encounter Diagnosis Pneumonia(Discharge Diagnosis) - 04/10/23 Discharge Disposition: Home or Self Care Attending Physician: DAMIAN Ulloa Tara Referring Physician: DAMIAN Ulloa Tara Allergies, Adverse Reactions, Alerts Substance Reaction Severity Status codeine N/V, HYPOTENSTION Moderate Active meperidine N/V, HYPOTENSTION Moderate Active narcotic analgesics N/V, HYPOTENSTION Moderate Act velia Zocor 1 Itching Moderate Active Aldactone unknown Active Pneumovax 23 Eruption Active Lipitor unknown Moderate Active Demerol HCl vomiting Active Pollen ITCHY EYES, SNEEZING, CONGESTION Moderate Active Darvocet-N 50 Low blood pressure, NAUSEA,VOMITING Low blood pressure Active flu vaccines 2 AVOIDS DUE TO EGG ALLERGY Moderate Active Morphine Sulfate vomiting Active Allergy Not found in Search 3 hypotension, vomiting Active oxyCODONE Vomiting Nausea Hypotension Moderate Active fentaNYL EXTREME NAUSEA; BP DROPS Moderate Act velia metFORMIN diarrhea Active OxyCONTIN Low blood pressure NAUSEA,VOMITING, FAINTNESS, Low blood pressure Active 1Outside Source Comment: unknown 24/11/2022 14:36 EST - minor rash ion arm lasted for 1 day more than 16 years ago. The patient statedthat he has been eating eggs and no allergic reaction. 3"all heavy narcotics" Assessment and Plan Extracted from: Title:follow up Author:DAMIAN Ulloa Tara Date: 1.Pneumonia Acute/Chronic: acute Goal:Resolution/ control Status:ongoing Data: records/pt report Plan:He is feeling better but still has cough and fatigue. Can contd to use otc cough med. Questions answered about covid vaccine. time spent reviewing chart, face to face visit, ordersand documentation: 33 min Immunizations Given and Recorded Vaccine Date Status Refusal Reason tetanus/diphtheria/pertuss, acel (Tdap) 1 08/07/22 Recorded tetanus/diphtheria/pertuss, acel (Tdap) 2 03/19/16 Recorded tetanus/diphtheria/pertuss, acel (Tdap) 3 11/20/11 Recorded influenza virus vaccine, inactivated 07/11/22 Give n SARS-CoV-2 (COVID-19) mRNA BNT-162b2 vax 4 08/31/20 Recorded SARS-CoV-2 (COVID-19) mRNA BNT-162b2 vax 5 08/10/20 Recorded pneumococcal 13-valent vaccine 07/20/18 Given diphtheria/pertussis, whole cell/tetanus 6 03/19/16 Recorded pneumococcal 23-valent vaccine 7 07/07/08 Recorded pneumococcal 23-valent vaccine 11/16/03 Recorded 1Result Comment: at [facility] 2Result Comment: 2022-09-24: Historical information-source unspecified 3Result Comment: 2022-09-24: Historical information-source unspecified 4Result Comment: 2022-09-24: Historical information-source unspecified 5Result Comment: 2022-09-24: Historical information-source unspecified 6Result Comment: 2022-09-24: Historical information-source unspecified 7Result Comment: 2022-09-24: Historical information-source unspecified Medications alendronate 70 mg oral tablet Start: 09/23/21 11:22:00 EDT, 1 tab, PO, q7days, Disp# 90 tab, other Start Date: 09/23/21 Status: Ordered alfuzosin 10 mg oral tablet, extended release Start: 05/14/13 10:36:00, 1 tab, PO, Daily Start Date: 05/14/13 Status: Ordered Align 4 mg oral capsule Start: 12/10/21 13:48:00 EDT, 1 cap, PO, Daily Start Date: 12/10/21 Status: Ordered allopurinol 300 mg oral tablet Start: 05/13/11 10:57:00, 1 tab, PO, Daily Start Date: 05/13/11 Status: Ordered Aspirin Low Dose 81 mg oral delayed release tablet Start: 05/14/13 10:36:00, 1 tab, PO, Daily Start Date: 05/14/13 Status: Ordered Boostrix (Tdap) intramuscular suspension Start: 07/11/22 10:42:00 EST, 0.5 mL, IM, ONCE, Disp# 0.5 mL, Refills: 0, Note to Pharmacy: have shot in pharmacy, Pharmacy: [facility] #[id number] Start Date: 07/11/22 Status: Ordered Caltrate 600 with D Start: 05/13/11 11:23:00, 1 tab, PO, Daily, tab Start Date: 05/13/11 Status: Ordered Claritin Start: 05/16/14 10:23:00, 10 mg =, PO, Daily, PRN Start Date: 05/16/14 Status: Ordered cranberry Start: 12/10/21 13:53:00 EDT, 500 mg =, PO, Daily Start Date: 12/10/21 Status: Ordered Detrol Start: 11/07/22 13:07:00 EDT Start Date: 11/07/22 Status: Ordered diclofenac sodium 75 mg oral delayed release tablet Start: 02/14/22 10:35:00 EDT, 1 tab, PO, Daily Start Date: 02/14/22 Status: Ordered finasteride 5 mg oral tablet Start: 05/16/14 10:22:00, 1 tab, PO, Daily Start Date: 05/16/14 Status: Ordered folic acid 1 mg oral tablet Start: 06/10/22 13:29:00 EST, See Instructions, Disp# 90 tab, Refills: 4, take 1 tablet by mouth once daily, Pharmacy: [facility] #[id number] Start Date: 06/10/22 Status: Ordered magnesium oxide 400 mg (241.3 mg elemental magnesium) oral tablet Start: 05/22/16 9:03:00, 1 tab, PO, Daily Start Date: 05/22/16 Status: Ordered meclizine 25 mg oral tablet Start: 05/13/11 11:37:00 EST, 1 tab, PO, Daily, tab, PRN: vertigo Start Date: 05/13/11 Status: Ordered melatonin 5 mg oral tablet Start: 12/10/21 13:53:00 EDT, 1 tab, PO, qhs, PRN: Insomnia Start Date: 12/10/21 Status: Ordered metoprolol tartrate Start: 05/13/11 11:24:00 EST, See Instructions, 50 mg PO 1 tab at lunch and 1 1/2 tabs at hs Start Date: 05/13/11 Status: Ordered miSOPROStol 200 mcg oral tablet Start: 02/14/22 10:36:00 EDT, 1 tab, PO, Daily, with diclofenac Start Date: 02/14/22 Status: Ordered mupirocin 2% topical ointment Start: 11/07/22 13:19:00 EDT, See Instructions, Disp# 22 g, Refills: 3, apply to wounds on the leg daily until clear, Pharmacy: [facility] #[id number] Start Date: 11/07/22 Status: Ordered omega-3 polyunsaturated fatty acids 1000 mg oral capsule Start: 05/13/11 10:56:00 EST, 2,668 mg =, PO, Daily, cap Start Date: 05/13/11 Status: Ordered omeprazole 20 mg oral delayed release capsule Start: 05/13/11 11:22:00, 1 cap, PO, Daily Start Date: 05/13/11 Status: Ordered PreserVision AREDS Start: 12/10/21 13:52:00 EDT, See Instructions, 1 capsule po bid Start Date: 12/10/21 Status: Ordered rosuvastatin 10 mg oral tablet Start: 02/14/22 10:38:00 EDT, 1 tab, PO, Daily Start Date: 02/14/22 Status: Ordered Safetussin DM Start: 04/10/23 11:37:00 EDT Start Date: 04/10/23 Status: Ordered tolterodine 4 mg oral capsule, extended release Start: 12/12/22 20:04:00 EDT, 1 cap, PO, Daily, Disp# 30 cap, Refills: 1, Pharmacy: [facility] #[id number] Start Date: 12/12/22 Status: Ordered triamcinolone 0.1% topical cream Start: 11/07/22 13:19:00 EDT, 1 appl, topical, bid, Disp# 80 g, Refills: 2, apply to dermatitis on the right leg for 2 weeks until clear, Pharmacy: [facility] #[id number] Start Date: 11/07/22 Status: Ordered Tylenol 500 mg oral tablet Start: 12/10/21 13:52:00 EDT, 2 tab, PO, q6h, PRN: as needed for pain Start Date: 12/10/21 Status: Ordered unknown medication Start: 07/20/18 9:04:00 EST, See Instructions, B&L Soothe Lubricant Eye drops 2 drops q am and hs. Start Date: 07/20/18 Status: Ordered unlisted medication Start: 02/14/22 10:40:00 EDT, prevagen or neurvia once daily Start Date: 02/14/22 Status: Ordered ursodiol 300 mg oral capsule Start: 01/20/20 15:16:00 EDT, 1 cap, PO, bid Start Date: 01/20/20 Status: Ordered Mental Status 04/10/23 Barriers to Learning one year None evide nt Mandatory Health Literacy Documentation Yes Health Literacy Communication Barriers N ever Primary Language Kinyarwanda Problem List Condition Confirmation Course Effective Dates Status H ealth Status Informant Allergy Confirmed Active Basal cell carcinoma 1 Confirmed Active Cellulitis Confirmed Active Cellulitis of leg Confirmed Active Migraine Confirmed Active Liver cirrhosis Confirmed Active UC (ulcerative colitis) 2 Confirmed Active CAD (coronary artery disease) Confirmed Active MRSA (methicillin resistant staph aureus) culture positive 3 Confirmed 09/25/22 Active 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 Zaheer Pitt in [place] 30+ STAPHYLOCOCCUS AUREUS (RESISTANT TO OXACILLIN) (*MRSA*) from WOUND RIGHT LEG CELLULITIS SWAB collected 09/25/2022 16:[address] Daley 5Left 6with stomy and stomy hernia 7sees 8MI 1 weeks after TKR [address]. sees Dr. Berumen. 9H/O 10>100 THOUSAND COLONIES/ML KLEBSIELLA PNEUMONIAE from urine culture collected 01/14/2023 13:[address] on 04/03/2022: Impression: Suspicious irregular spiculated 1.6 cm subpleural nodule of the right upper lobe. Primary bronchogenic malignancy is the differential of exclusion. Pulmonary consultation is needed. No pathologically enlarged lymph noes of the chest. Bibasilar opacities suggest atelectasis. There is a nodular subpleural opacity adjacent to the descending thoracic aorta within the superior segment left lower lobe measuring 2.4 cm, also favored to be atelectatic. Attention at follow-up recommended. Heterogeneous cirrhotic liver. Additional findingas as above. 12sees [facility] 13due to Hx of chronic steriod Tx and stress Fx in 2011. stopped steriod in in 1974. 14sees [address] Gayle Mcclellan in [facility] Diagnosis Diagnosis Type Effective Dates Health Status Clini [facility] Service Informant Pneumonia Discharge Diagnosis 04/10/23 Procedures Procedure Date Related Diagnosis Body Site Status CT of abdomen and pelvis wit h intravenous contrast 1 02/19/[address] of chest 2 04/03/22 Completed MRI of pelvis 3 03/04/[address] of abdomen and pelvis 4 02/04/22 Completed X-ray of chest 5 02/04/22 Complete d Cystoscopy 6 10/25/21 Completed Bone density scan 7 08/27/[address] angiography of chest and abdomen and pelvis 06/21/[address] of abdomen and pelvis 8 02/10/[address] of cervical spine 9 02/10/21 Co mpleted Chest X-ray 10, 11 02/02/21 Comple ricky Pelvis X-ray 12 02/02/21 Completed Plain X-ray of right tibia a nd right fibula 13 02/02/21 Completed X-ray of both knees 14, 15 02/02/21 Completed Plain X-ray of lumbar spine 16 11/29/20 Completed CXR - Chest X-ray 17 10/02/20 Comp leted Debridement 18 10/01/20 Completed Cystoscopy 07/05/19 Completed Chest x-ray 19 03/12/19 Completed Chest x-ray 20 02/03/19 Completed Hip X-ray Right 21 02/03/19 Comple ricky Knee X-ray Right 22 02/03/[address] of abdomen and pelvis 23 02/02/[address] of head 24 02/02/19 Completed Chest x-ray 25 11/12/[address] of abdomen and pelvis 26 11/09/18 Completed Laminectomy 27 10/05/18 Completed MRI 28 09/01/18 Completed X-ray tomography of lumbar spine 29 07/20/18 Completed Chest x-ray 30 05/22/17 Completed Chest X-ray 31 05/22/17 Completed Shave biopsy and cauterization of skin 05/22/17 Completed ERCP 32 05/08/17 Completed CXR - Chest X-ray 33 04/30/17 Comp leted KUB X-ray 34 04/27/17 Completed MRI of brain with contrast 35 04/27/[address] of head 36 04/26/17 Completed CXR - Chest X-ray 37 04/26/17 Comp leted EEG 38 04/26/17 Completed MRI of brain with contrast 39 04/22/[address] of abdomen and pelvis 40 03/19/[address] of abdomen and pelvis 41 03/19/[address] of chest 42 03/19/17 Completed CXR - Chest X-ray 43 03/19/17 Comp leted ERCP 44 02/25/17 Completed Hand X-ray 45 02/12/17 Completed Imaging findingnSI joints 46 02/12/17 Completed Bone density finding 47 02/11/17 C ompleted Cataract surgery 48 11/18/16 Compl eted Pathology report 49 11/15/16 Compl eted ERC with biliary dilatations and cytology brushings. 50 11/12/16 Completed Pathology report 51 08/21/16 Compl eted ERC with biliary dilatations and biliary cytology 52 08/20/16 Completed Hx of shoulder surgery 53 06/2016 Completed Pathology 54 08/24/15 Completed Pathology report 55 01/19/15 Compl eted ERC 56 01/17/15 Completed ERC 57 05/27/14 Completed Pathology 58 05/27/14 Completed ERCP 59 02/2014 Completed ERC 60 10/04/12 Completed 2nd CTR Left wrist 08/28/12 Comple ricky CTR - Carpal tunnel release 61 03/01/11 Completed Appendectomy Completed Cardiac surgery 62 Comple ricky Cholecystectomy Completed Colectomy 63 Completed ERCP 64 Completed History of bilateral total k nee replacement Completed Ileostomy 65 Completed 11. Cirrhotic liver with marked plenomegaly 2. Moderate ascites 3. Right and left anterior abdominal wall hernia 2Impression: Suspicious irregular spiculated 1.6 cm subpleural nodule of the right upper lobe. Primary bronchogenic malignancy is the differential of exclusion. Pulmonary consultation is needed. No pathologically enlarged lymph noes of the chest. Bibasilar opacities suggest atelectasis. There is a nodular subpleural opacity adjacent to the descending thoracic aorta within the superior segment left lower lobe measuring 2.4 cm, also favored to be atelectatic. Attention at follow-up recommended. Heterogeneous cirrhotic liver. Additional findingas as above. 3The examination is compromised by motion artifact and suboptimal without IV contrast. There is no evidence of penile fluid collection to suggest abscess. There is increasing scrotal edema as compared to 02/21/2022. Clinical correlation will be required There bladder is decopressed around a Lama catheter and appears thick-walled. Correlate with urinalysis. Pelvic ascites. Large parastomal hernia containing bowel loops and acitic fluid. 4No urinary calculi or hydronephrosis Persistent bladder wall thickening with infiltration adjacent to the bladder, seminal vesicles and prostate. This could be correlated with urinalysis. Cirrhosis. Increase in splenomegaly and nonspecific cardiophrenic angle lymphadenopathy. Trace ascites. Status post colectomy with left lower quadrant ileostomy and large parastomal hernia containing mulitple small bowel loops. No resultant bowel obstruction. 5Stable cardiomegaly. No evidence for pulmonary edema. A new 1.7cm irregular density within the periphery of the right mid lung zone. This could representa pulmonary nodule. Therefore, follow-up nonemergent Chest CT is recommended for further evaluation. 6uro cysto and lama catheter change 7T-score of -2.2 Major Osteoporotic - 13.1% Hip 5.2% Population [place] () Based on DualFemur (right) Neck BMD 81. Prostamegaly with evidence of chronic bladder outlet obstruction. Urinary bladder wall thickening and perivesicular stranding should be correlated with urinalysis to exclude cystitis. 2. A lama catheter is present within the urinary bladder along with am oderate amount of intraluminal hemorrhage. 3. No urolith or obstructive uropathy. 4. Cirrhosis with spenomegaly compatible with portal venous hypertension. 5. Prior colectomy with left lower quadrant ileostomy. Stable to increased size of the large left lower quadrant parastomal bowel containing hernia. No bowel obstruction. 6. Progressive T12 compression deformity with 4 mm retropulsion, worsened from 11/29/2020. 7. Additoinal findings. 91. There is no evidence of fracture or subluxation involving the cervical spine. 2. Osteopenia and spondylotic change as above. 10(Comparison MRI abdomen with/without contrast dated 08/03/2010; chest 1 view dated 07/20/2008) 11Findings: Single AP veiw chest performed. No infiltrate or consolidation. No pleural effusion or pneumothorax. The cardiac silhouette is mildly enlarged. Atherosclerotic calcifications of the aorta noted. The pulmonary vasculature is unremarkable. Age inteterminate posterior left 6th rib fx. Right shoulder arthroplasty in adequate alignment. Degenerative change of the left shoulder. Impression: Age-indeterminate posterior left 6th rib fracture. No pneumothorax bilaterally indentified on this single view chest. 12There is concerning of a bowel containing left inguinal hernia. Surgical sutures are noted in the right lower quadrant of the abdomen. A tubular structure overlying the right lower abdomen and pelviswhich is fractured distally. No acute osseous abnormality of the right hip. Suspected bowel containing left inguinal hernia. (Comparison MRI abdomen with/without contrast dated 08/03/2010; chest 1 view dated 07/20/2008) 13Findings: Frontal lateral views of the fight tibia and fibula were obtained. Splinting devide projects over the right leg and this somewhat obscures visualization of fine bony detail of the tibia and fibula. Communiuted and mildly displaced fractures through the proximal right tibia and fibula are again noted. The distal tibial fragment is medially displaced approximately 1 cortx width with respect to the proximal fragment. The distal fibular fragment is medially displaced perhaps 1 cortex width with respect to the proximal fibular fragment. Fractures again demonstrate mild apex anterior angulation, asseen on prior exam. Changes post right total knee arthroplasty are again noted. Mild soft tissue alison ma and atherosclerotic calcifications are seen throughout the right leg. Impression: Interval splinting of the right leg as described with improvement of alignment of the proximal right tibial and fibular fractures as described. 14Right knee: The patient is status post right total knee arthroplasty. There is a periprostheti displaced fracture of the proximal left tibia with angulation apex medially and anteriorly. There is also a displaced angulated fracture of the proximal fibula. Soft tissue swelling anterior to the proximal tibia and fibula. Possible joint effusion. 15(Comparison MRI abdomen with/without contrast dated 08/03/2010; chest 1 view dated 07/20/2008) 161. chronic compression deformities and spondylotic changes as patricia with no acute bony abnormality seen involving lubar spine. 2. there is a mild wedge compression deformity of T12 . this is new from previous and may be acute to subacute correlate for point tenderness. 171. Cardiomegaly without acute process. 2. Mild linear subsegmental bibasilar atelectasis/scarring 3. 10mm nodular opacity of the lateral left lung base is suggestive of scarring versus pulmonary nodule. This could be evaluated with a nonemergent f/u chest CT. 18Deep right deltoid abscess without periprosthetic shoulder infection of the right shoulder. Right shoulder abscess irrigation and debridement 19resolution of prior left lower lobe pneumonia. No acute cardiopulmonary disease Hyperinflation could suggest underlying emphysema or obstructive lung disease Cardiomegaly 20Impression: Cardiomegaly with evidence of congestive failure There is dense airspace consolidation at the left lung base. This is new from 01/23/2019. Correlate clinically for evidence of pheumonia/aspiration pneumonitis. Radiographic follow-up to resolution isrecommended. Small pleural effusions. 21Impression: Subtle subcapital trabecular pattern changes lateral right hip. CT of the right hip is suggested to exclude an occult fracture. 22Impression: no acute process 23Dependent bibasilar atelectasis. Cardiomegaly No pericardial effusion. Persistent pneumobilia with thickening of the wall of the common bile duct. Cholangitis is not excluded. Prior cholecystectomy. Probablye cirrhotic changes of the liver. Splenomegaly Similar collateral vessels in the upper abdomen. Severely trabeculated bladder. Small gas foci within the bladder and the multiple bladder diverticula concerning for cystitis. Stable 1.7 cm calcification in the posterior bladder. Prostatectomy Atherosclerotic changes of the vasculature. NO aortic aneurysm or dissection Retroaortic left renal ein. Atrophy of the pancrease. No acute inflammation. Nonspecific mild bilateral perinephric fat stranding. Small hypodensities in the kidneys are too small to definitevely characterize. Left sided ostomy with large parastomal hernia containing multiple nonobstructed small bowel loops.Moderate right lateral ventral hernis containing fat and nonobstructed small bowel. There are similar compared to prior exam. Prior colectomy. 24No acute intracranial abnormality identified. Chronic small vessel ischemic disease and cerebral volume loss. 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 Bilateral lens implants/atherosclerotic calcifications of the intracranial vasculature. Cavum septum pellucidum. Small polyp versus mucous retention cyst in the left maxillary sinus. Mild mucosal thickening in the ethmoid air cells. 25IMPRESSION: 1. No acute cardiopulmonary findings. 2. Cardiomegaly. 3. Bibasilar opacities suggestive of atelectasis. 261. No acute process within the abdomen or pelvis. 2. Dysmorphic liver suggestive of cirrhosis with evidence of portal hypertension including splenomegaly and varices formation. 3. Status post total colectomy. No change in a left lower quadrant parastomal hernia and a small bowel containing right lower quadrant hernia. No bowel obstruction. 4. 4x2.1 x 1.9 cm rim-enhancing nonspecific laminectomy bed fluid collection. 27Laminectomy L3-L4, L4-L5, disc herniation, L3-L4 lumbar spine, foraminotomy, partial facetectomy, decompression of all neural elements and discectomy. 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 Mild scoliosis 2. No acute fractures 3. Degenerative changes the L4-5 and L5-S1 levels 4. Suspected bladder calculus. 5. Fractured tubular structure projected over the right abdomen. This is likely extraneous to the patient and may represent a brace 301. No acute cardiopulmonary process. 2. Previously described multiple left-sided rib fractures are not clearly seen on this study. No acute displaced rib fracture or pneumothorax identified. 31Impression: No acute cardiopulmonary process Previously described multiple left sided rib fractures are not clearly seen on this study. no acutedisplaced rib fracture or pheumothorax identified. 32[place] [place] 331. No displaced fractures left sixth thru 10th ribs. 2. Atelectasis left base. 3. No evidence for pneumothorax. 34No evidence of pathologic bowel dilatation. Tubular radiopaque structure projected over the right abdomen of uncertain etiology. 351. no acute intracranial findings. 2. No evidence of acute or subacute infraction 3. No evidence of intracranial mass 4. Foci of increased T2 signal within the white matter and scattered lacunar infarcts likely small vessel basis. 36No acute intracranial findings 371. Cardiomegaly 2. No evidence of failure. No evidence of focal pulmonary consolidation 3. Soft tissue prominence of the right paratracheal region, a finding which may relate to technicalfactors. 38This is a normal awake and drowsy EEG 391. No acute intracranial findings 2. No evidence of acute or subacute infarction 3. No evidence of intracranial mass 4. Foci of increased T2 signal within the white matter and scattered lacunar infarts likely small vessel basis. 40Mild thickening of the common bile duct wall which is slightly progressed. This raises the possibility of an ascending cholangitis Increase in size in the small right sided abdominal wall hernia which now contains a loop of small bowel. The large peristomal bowel containing hernia remains unchanged. No evidence for bowel obstruction. Splenomegaly which is also increased in size. There is slightly distended and fluid-filled loop of small bowel within the large left lower quadrant peristomal hernia. Therefore this raises the possibility of a developing partial small bowel obstruction. 41Colectomy. Large left lower quadrant ostomy and large parastomal hernia containing bowel. Relative prominence of a short segments of small bowel, entering the parastomal hernia and also a loop which courses adjacent to but not within the hernia. Overall, the more proximal small bowel is relatively dilated to the distal small bowel and prominent obstruction suspected. Evaluation limited by lack oforal contrast. Right mid-abdominal ventral hernia now contains a small portion of small bowel, no evidence of resulting obstruction at this site. Stable lobulated liver contour. Cholecystectomy. Penumobilia again noted. Splenomegaly. Multiple bladder diverticula and lobular invagination of prostate at base of bladder, similar to prior. Bladder calculi, slightly icnreased from prior. Small slidinghiatal hernia. Mild perinephric stranding, similiar to prior. Degenerative changes of spine. 42No evidence of PE. Subsegmental atelectasis/airpsace disease at bilateral lower lobes and lingula. It is predominately dependent and atelectasis favored but mild airspace disease/infection not excluded. LAD stent and there is apical thinning of the left ventricle. Heart is mild to moderately enlarged. Right shoulder arthroplasty. Thoracic vertebral body multilevel mild height loss, Schmoris nodes, and degenerative changes. No findings to suggest acute fracture. 43Stable mild cardiomegaly and bibasilar linear densities. These may represent atelectasis or penumonia. 44Mildly dilated common duct with irregular lumen Extrahepatic stricture stricture and intrahepatic beading and stricture No apparent contrast leakage 45LEFT HAND: 1. No acute fracture or dislocation. 2. Multifocal degenerative changes about the wrist and hand as above with severe osteoarthitis of the first carpal metacarpal joint. 3. Chondrocalcinosis of the TFCC. RIGHT HAND: Considerable degenerative change of the articular services of the wrist and to a lesserextent hand. 46Moderate degenerative change of the sacral iliac regions bilaterally. No evidence of bony ankylosis. Osteopenia. 47-1.3 48Bilateral. 49Biliary tree: Brushing Ductal epithelium with reactive changes. 50PSC changes with stable diffuse intrahepatic stricturing. Bilateral intrahepatic dilatations. Cytology burshings. Repeat ERC in 3 months. 51Biliary tree: Biliary duct: Scant specimen. Ductal epithelium with reactive changes. No malignant neoplasm identified. 521) Major papilla appearance consistent with prior sphincterotomy; 2) easy connulation of the bile ducts with the variable diameter balloon catheter and hydrojag wire; 3) occulsion cholangiogram revealed no dominant extrahepatic stricturing and previously described extensive bilateral intrahepatic st ricturing and previously described extensive bilateral intrahepatic stricturing/pruning; 4)bilateral intrahepatic 4 mm balloon dilatations were performed with wire guidance; 5)cytology brushings wereobtained from the region of the bifurcation. The scope was then completely with drawn from the patient and the procedure completed. 53Right shoulder surgery replacement - hardware placed. 54Scant specimen with rare fragments of benign ductal epithelium 55Fragments of benign ductal epithelium. No malignant neoplasm identified. 561)prior sphincterotomy was apparent 2) easy cannulation of the biliary system was realized with a balloon catheter and jag wire 3) occulsion cholngiogram revealed stable appearing extensive bilateralintrahepatic stricturing and no dominant extrahepatic stricture; 4) a 4mm balloon catheter was usedfor bialteral intrahepatic biliary dilatations; 5) cytology brushing were obtained from the region of the bifurcation. The scope was then completely withdrawn from the patient and the procedure completed. Diffuse intrahepatic changes of sclerosing cholangitis dilated and brushed Repeat ERC in 3-4 months. 57Cholangiogram consisstent with PSC, right sided intrahepatic biliary dilatation, and cytology brushings obtained. 58Fragments of biliary epithelium with inflammation. 59pathology; Scant specimen, Ductal epithelium with reactive changes. No malignant neoplasm identified 60Cholangiogram changes consistent with longstanding PSC with dominant intrahepatic strituring. Bilaterally dilated. Cytology brushings obtained. 61Bilateral 62Stent insertion 63Colectomy - stoma revision. 64[place] 65Times 2 Vital Signs Most recent to oldest [Reference Range]: 1 Heart Rate 66 bpm (04/10/23 11:37 AM) Respiratory Rate 18 br/min (04/10/23 11:37 AM) Blood Pressure 110/60mmHg (04/10/23 11:37 AM) Cuff Pulse Pressure 50 mmHg (04/10/23 11:37 AM) Social History Social History Type Response Smoking Status Never smoked cigaret debby Sex Male [facility] Outpt Note * DAMIAN Ulloa Tara: PERFORM Event Display: [facility] Outpt Note Authored Date: Chief Complaint follow up from mis, feelin a little better. now has productive cough. taste is coming back History of Present Illness One week follow up for covid and pneumonia. He was placed on abx that he has completed. He is feeling better but still has cough and fatigue. Review of Systems Constitutional: No fever, chills, sweats EENT:Negative except for HPI Pulmonary: No shortness of breath, dyspnea with exertion,. +cough Cardiovascular: No chest pain, palpitations, syncope, edema Physical Exam Vitals & Measurements HR:66(Monitored) RR:18 BP:110/60 SpO2:93% PHQ2 Data(Data Documented on:04/10/2023 11:37) Emotional health assessment NEGATIVE head- normocephalic eyes- PERRLA , conjunctiva clear, sclera white, anicteric, Pulmonary- chest expansion symmetric, CTA (clear to auscultation), eupnea, no adventitious sounds (rales, crackles, wheezes) CV (cardiovascular)- RRR no m/r/g (systolic ejection murmur, rubs, gallops), good peripheral perfusion Neuro:Alert, Oriented Assessment/Plan 1.Pneumonia Acute/Chronic: acute Goal:Resolution/ control Status:ongoing Data: records/pt report Plan:He is feeling better but still has cough and fatigue. Can contd to use otc cough med. Questions answered about covid vaccine. time spent reviewing chart, face to face visit, ordersand documentation: 33 min Problem List/Past Medical History Ongoing Abdominal wall hernia Allergy Basal cell carcinoma CAD (coronary artery disease) Cellulitis Cellulitis of leg Degenerative joint disease of shoulder region Diabetes Enlarged prostate Gout Hand numbness Health care maintenance High cholesterol History of ileostomy HYPERTENSION. Iron deficiency anemia Kidney stones Liver cirrhosis Lung cancer Lung nodule [place] Migraine MRSA (methicillin resistant staph aureus) culture positive Multiple drug resistant organism (MDRO) culture positive Osteopenia Pancytopenia Periurethral abscess Primary mucinous adenocarcinoma of lung Rheumatoid disease Right leg pain Sclerosing cholangitis UC (ulcerative colitis) Urethral stricture Urinary retention Vertigo Historical Carpal Tunnel Syndrome DVT Procedure/Surgical History CT of abdomen and pelvis with intravenous contrast (02/19/2023)CT of chest (04/03/2022)MRIof pelvis (03/04/2022)CT of abdomen and pelvis (02/04/2022)X-ray of chest (02/04/2022)Cystoscopy (10/25/2021)Bone density scan (08/27/2021)CT angiography of chest and abdomen and pelvis (06/21/2021)CT of abdomen and pelvis (02/10/2021)CT of cervical spine (02/10/2021)Pelvis X-ray (02/02/2021)X-ray of both knees (02/02/2021)Chest X-ray (02/02/2021)Plain X-ray of right tibia and right fibula (02/02/2021)Plain X-ray of lumbar spine (11/29/2020)CXR - Chest X-ray (10/02/2020)Debridement (10/01/2020)Cystoscopy (07/05/2019)Chest x-ray (03/12/2019)Hip X-ray Right (02/03/2019)Knee X-ray Right (02/03/2019)Chest x-ray (02/03/2019)CT of abdomen and pelvis (02/02/2019)CT of head (02/02/2019)Chest x-ray (11/12/2018)CT of abdomen and pelvis (11/09/2018)Laminectomy (10/05/2018)MRI (09/01/2018)X-ray tomography of lumbar spine (07/20/2018)Chest x-ray (05/22/2017)Chest X-ray (05/22/2017)Shave biopsy and cauterization of skin (05/22/2017)ERCP (05/08/2017)CXR - Chest X-ray (04/30/2017)KUB X-ray (04/27/2017)MRI of brain with contrast (04/27/2017)EEG (04/26/2017)CXR - Chest X-ray (04/26/2017)CT ofhead (04/26/2017)MRI of brain with contrast (2017)CXR - Chest X-ray (03/19/2017)CT of abdomen and pelvis (03/19/2017)CT of abdomen and pelvis (03/19/2017)CT of chest (03/19/2017) ERCP (02/25/2017)Imaging findingnSI joints (02/12/2017)Hand X-ray (02/12/2017)Bone density finding (02/11/2017)Cataract surgery (11/18/2016)Pathology report (11/15/2016)ERC with biliary dilatations and cytology brushings. (11/12/2016)Pathology report (08/21/2016)ERC with bi liary dilatations and biliary cytology (08/20/2016)Hx of shoulder surgery (06/2016)Pathology (08/24/2015)Pathology report (01/19/2015)ERC (01/17/2015)Pathology (05/27/2014)ERC (05/27/2014)ERCP (02/2014)ERC (10/04/2012)2nd CTR Left wrist (08/28/2012)CTR - Carpal tunnel release (03/01/2011)ColectomyHistory of bilateral total knee replacementCardiac surgeryIleostomyCholecystectomyAppendectomyERCP Medications acetaminophen(Tylenol 500 mg oral tablet), 1000 mg= 2 tab, PO, q6h, PRN alendronate(alendronate 70 mg oral tablet), 70 mg= 1 tab, PO, q7days alfuzosin(alfuzosin 10 mg oral tablet, extended release), 10 mg= 1 tab, PO, Daily allopurinol(allopurinol 300 mg oral tablet), 300 mg= 1 tab, PO, Daily aspirin(Aspirin Low Dose 81 mg oral delayed release tablet), 81 mg= 1 tab, PO, Daily bifidobacterium infantis(Align 4 mg oral capsule), 4 mg= 1 cap, PO, Daily calcium and vitamin D combination(Caltrate 600 with D), 1 tab, PO, Daily cranberry, 500 mg, PO, Daily dextromethorphan-guaifenesin(Safetussin DM) diclofenac(diclofenac sodium 75 mg oral delayed release tablet), 75 mg= 1 tab, PO, Daily finasteride(finasteride 5 mg oral tablet), 5 mg= 1 tab, PO, Daily folic acid(folic acid 1 mg oral tablet), See Instructions loratadine(Claritin), 10 mg, PO, Daily magnesium oxide(magnesium oxide 400 mg (241.3 mg elemental magnesium) oral tablet), 400 mg= 1 tab, PO, Daily meclizine(meclizine 25 mg oral tablet), 25 mg= 1 tab, PO, Daily, PRN melatonin(melatonin 5 mg oral tablet), 5 mg= 1 tab, PO, qhs, PRN metoprolol(metoprolol tartrate), See Instructions miSOPROStol(miSOPROStol 200 mcg oral tablet), 200 mcg= 1 tab, PO, Daily multivitamin with minerals(PreserVision AREDS), See Instructions mupirocin topical(mupirocin 2% topical ointment), See Instructions, 3 refills omega-3 polyunsaturated fatty acids(omega-3 polyunsaturated fatty acids 1000 mg oral capsule), 2668mg, PO, Daily omeprazole(omeprazole 20 mg oral delayed release capsule), 20 mg= 1 cap, PO, Daily ondansetron(Zofran), 4 mg= 2 mL, IV Push, Pre Event rosuvastatin(rosuvastatin 10 mg oral tablet), 10 mg= 1 tab, PO, Daily tetanus/diphth/pertuss (Tdap) adult/adol(Boostrix (Tdap) intramuscular suspension), 0.5 mL, IM, ONCE tolterodine(Detrol) tolterodine(tolterodine 4 mg oral capsule, extended release), 4 mg= 1 cap, PO, Daily, 1 refills triamcinolone topical(triamcinolone 0.1% topical cream), 1 appl, topical, bid, 2 refills unknown medication, See Instructions unlisted medication ursodiol(ursodiol 300 mg oral capsule), 300 mg= 1 cap, PO, bid Allergies Lipitor (Moderate)unknown Pollen (Moderate)ITCHY EYES, SNEEZING, CONGESTION Zocor (Moderate)Itching codeine (Moderate)N/V, HYPOTENSTION fentaNYL (Moderate)EXTREME NAUSEA; BP DROPS flu vaccines (Moderate)AVOIDS DUE TO EGG ALLERGY meperidine (Moderate)N/V, HYPOTENSTION narcotic analgesics (Moderate)N/V, HYPOTENSTION oxyCODONE (Moderate)Vomiting, Nausea, Hypotension Aldactoneunknown Allergy Not found in Searchhypotension, vomiting Darvocet-N 50Low blood pressure, NAUSEA,VOMITING, Low blood pressure Demerol HClvomiting Morphine Sulfatevomiting OxyCONTINLow blood pressure, NAUSEA,VOMITING, FAINTNESS, Low blood pressure Pneumovax 23Eruption metFORMINdiarrhea Social History Smoking Status Never smoked cigarettes Alcohol Use:Current Type:Wine Frequency:Daily Exercise Exercise type:Walking - Comments: hunting, fishing Home/Environment Lives with:Children, Spouse Nutrition/Health Type of diet:Regular Substance Abuse IV drug use:No Has drug use interfered with your work or home life:No Ready to change:No Concerns about substance abuse in household:No Tobacco Use:Never smoker Family History Alcoholism: Brother. Breast cancer: Mother. Heart attack: Father. Uterine cancer: Sister. Lucia Parkinson White syndrome: Sister. Health Status Family Member(s) Immunizations Vaccine Date Status tetanus/diphtheria/pertuss, acel (Tdap) 08/07/2022 Recorded Comments : at [facility] influenza virus vaccine, inactivated 07/11/2022 Given SARS-CoV-2 (COVID-19) mRNA BNT-162b2 vax 08/31/2020 Recorded Comments : 2022-09-24: Historical information-source unspecified SARS-CoV-2 (COVID-19) mRNA BNT-162b2 vax 08/10/2020 Recorded Comments : 2022-09-24: Historical information-source unspecified pneumococcal 13-valent vaccine 07/20/2018 Given tetanus/diphtheria/pertuss, acel (Tdap) 03/19/2016 Recorded Comments : 2022-09-24: Historical information-source unspecified diphtheria/pertussis, whole cell/tetanus 03/19/2016 Recorded Comments : 2022-09-24: Historical information-source unspecified tetanus/diphtheria/pertuss, acel (Tdap) 11/20/2011 Recorded Comments : 2022-09-24: Historical information-source unspecified pneumococcal 23-valent vaccine 07/07/2008 Recorded Comments : 2022-09-24: Historical information-source unspecified pneumococcal 23-valent vaccine 11/16/2003 Recorded Recommendations Health Maintenance Pending(in the next year) OverDue Adult Influenza Vaccine due01/04/23and every 1year Due Adult COVID-19 Vaccination due04/10/23Unknown Frequency Shingles Vaccine due04/10/23One-time only Due In Future Falls Plan of Care not due until07/11/23and every 1year Medicare Annual Wellness Visit not due until07/11/23and every 1year Diabetes Management A1c not due until01/14/24and every 1year Body Mass Index not due until01/22/24and every 1year Satisfied(in the past 1 year) Satisfied Adult Influenza Vaccine on07/11/22.Satisfied by KATHY Ceron Sharon Adult Tdap/Td Vaccine on08/07/22.Satisfied by MD Bucio Juan Body Mass Index on09/24/22.Satisfied by KATHY Quinones Paul Diabetes Management A1c on01/14/23.Satisfied by Contributor_system, [email or web address] Diabetic Eye Exam on09/19/22.Satisfied by MD Horvath Michael P Lipid Screening on01/14/23.Satisfied by Contributor_system, [email or web address] Medicare Annual Wellness Visit on07/11/22.Satisfied by MD Bucio Juan Electronic Signature on File Electronically Reviewed/Signed by: DAMIAN Walton Author Signature Dt/Tm:04/10/2023 01:00 PM Department of Family Medicine TB Patient Care team information Care Team Personnel Name: MD Holcomb Jonathan D Position: Physician - Family Med Member Role: Lifetime Relationship Address: Address: [facility] [place] [address] [place] Name: MD Pineda Tiane Position: Resident - Pathologist Member Role: Lifetime Relationship Address: Address: [address] [place] [address] [place] [address] Name: MD Bucio Juan Position: Physician - Family Med Member Role: Primary Care Provider Address: Address: [address] [place] [address], [place] [address] Care Team Related Persons Name: ROSA HUERTA Address: home [address] [facility] [facility], [place] [id number] Name: TERESA CONN Address: [address] [address]
--- OUTSIDE RECORDS SUMMARY | 2023-06-14 09:47 | External Medical Summary | Summary of Care ---
Author Name Unknown Organization [facility] Address [address] [place] [address] Phone [phone] Care Team Providers Care Nurse Practitioner Home Assessments Name Role Phone Tom Bucio MD Primary Care Provider [phone] Encounter Details Date Type Department Care Team (Late st Contact Info) Description 05/06/2023 Orders Only Hematology/Oncology [place] [address] [facility] [place] [address] Bert Patel MD [address] [facility] [place] [address] Iron deficiency anemia, unspecified iron deficiency anemia type* Allergies Active Allergy Reactions Criticality Noted Date Comments Meperidine 10/21/2018 Morphine 11/27/2017 hypotension Oxycodone Hypotension,Nausea/v omit ing High 11/14/2017 Cant take any narcotics--only thing that works is Propofol documented as of this encounter (statuses as of 05/06/2023) Medications Medication Sig Dispensed Refills Start Date End Date Status [place] 3 1200 MG CAPS Take 1 Cap [...] by mouth in the morning. 0 Active Raleigh-3 Fat Ac-Cholecalciferol (DRY EYE OMEGA BENEFITS/VIT D-3) [...] as of this encounter (statuses as of 05/06/2023) Active Problems Problem Noted Date Diagnosed Date [...] Entered By: RENO OLIVAS MD Comment: prior [place] 2001 Benign prostatic hyperplasia without urinary obs [...] 01/25/2021 Overview: sees Dr. Gayle Mcclellan in [facility] sees Dr. Gayle Mcclellan in [facility] sees Dr. Gayle Mcclellan in [facility] sees Dr. Gayle Mcclellan in [facility] Aug 31, 2003 Entered By: SHAYY BAILEY [...] [address] Zaheer Pitt in [place] Sees Dr. Zaheer Pitt in [place] Sees Dr. Zaheer Pitt in [place] Sees Dr. Zaheer Pitt in [place] Venous stasis dermatitis 01/25/2021 Wedge compression fracture [...] as of this encounter (statuses as of 05/06/2023) Immunizations Name Administration Dates Next Due COVID-19 mRNA, LNP-s, No Pre serve, 2-Dose Series ([employer]) 08/28/2020,08/07/2020 documented as of this encounter Social [...] (15 years old or older) No 02/03/20 Cognitive Status Response Date of Assessm ent Because of a physical, menta l, or emotional condition, do you have serious difficulty concentrating, remembering, or making decisions? (5 years old or older No 02/02/2021 documented as of this encounter Progress Notes * Sayra Curry LPN - 05/06/2023 3:45 PM EDT Per : "Could you please make sure that he has following blood workup checkup every 4 weekly -CBCD, Ferritin, iron profile" Lab entered for 4 weeks documented in this encounter Plan of Treatment Upcoming Encounters Date Type Department Care Team (Late st Contact Info) Description 09/04/2023 1:15 PM EST Office Visit Hematology/Oncology [place] [address] [facility] [place] [address] Bert Patel MD [address] [facility] [place] [address] Scheduled Orders Name Type Priority Associated Diagnoses Orde r Schedule CBC WITH WBC DIFFERENTIAL Lab STAT Iron deficiency anemia, unspecified iron deficiency anemia type Every Month for 12 Occurrences starting 05/06/2023 until 05/06/2024 FERRITIN Lab STAT Iron deficiency anemia, unspecified iron deficiency anemia type Every Month for 12 Occurrences starting 05/06/2023 until 05/06/2024 IRON SCREEN, INCLUDING TIBC Lab STAT Iron deficiency anemia, unspecified iron deficiency anemia type Every Month for 12 Occurrences starting 05/06/2023 until 05/06/2024 Health Maintenance Due Date Last Done Comments Pneumococcal Vaccine: 65+ Years (1 - PCV) 1944 Depression Screening 1950 Diabetic Eye Exam 1956 Diabetic Foot Exam 1956 DTaP,Tdap,and Td Vaccines (1 - Tdap) 1957 VITAMIN D LEVEL ONCE IN A LIFETIME-USE SMARTSET# [id number] 1978 DXA Scan 1988 Hepatitis B (1 of 3 - Risk 3-dose series) 1998 Zoster Vaccines (2 of 3) 03/05/2012 01/09/2012 Albumin/Creatinine Ratio 05/11/2022 05/11/2021 HbA1c 08/08/2022 02/05/2022, 05/11/2021 COVID-19 Vaccine (3 - 2022-2 4 season) 2023 08/28/2020, 08/07/2020 Influenza Vaccine (FLU shot) (#1) 2023 GARDASIL-HPV IMMUNIZATION SERIES Aged Out No longer eligible b ased on patient's age to complete this topic MENINGOCOCCAL (MENACTRA/MENVEO) Aged Out No longer eligible b ased on patient's age to complete this topic documented as of this encounter Medical Devices Not on filedocumented as of this encounter Visit Diagnoses Diagnosis Iron deficiency anemia, unspecified iron deficiency anemia type- Primary documented in this encounter Advance Directives Latest Code Status on File Code Status Date Activated Date Inactivated Comments Full Code 02/02/2021 1:18 PM 02/06/2021 4:00 PM This o rder reflects the patients wishes and were consensually agreed upon. Care Teams Nurse Practitioner Home Assessments Relationship Specialty Start Date End Date Tom Bucio MD [address] [place] [address] PCP - General Family Medicine 10/14/17 documented as of this encounter
--- OUTSIDE RECORDS SUMMARY | 2023-06-14 09:47 | External Medical Summary | Summary of Care ---
Author Name Unknown Organization [facility] Address [address] [place] [address] Phone [phone] Care Team Providers Care Stock Handler Name Role Phone Tom Bucio MD Primary Care Provider [phone] Reason for Visit * Reason Comments Follow Up 4m Encounter Details Date Type Department Care Team (Late st Contact Info) Description 05/06/2023 2:45 PM EDT [facility] [address] [facility] [place] [address] Bert Patel MD [address] [facility] [place] [address] Iron deficiency anemia, unspecified iron deficiency anemia type*; Pancytopenia (HCC); Malignant neoplasm of lower lobe of left lung (HCC); Thrombocytopenia (HCC); Splenomegaly Allergies Active Allergy Reactions Criticality Noted Date Comments Meperidine 10/21/2018 Morphine 11/27/2017 hypotension Oxycodone Hypotension,Nausea/v omit ing High 11/14/2017 Cant take any narcotics--only thing that works is Propofol documented as of this encounter (statuses as of 05/06/2023) Medications Medication Sig Dispensed Refills Start Date End Date Status [place] 3 1200 MG CAPS Take 1 Cap [...] by mouth in the morning. 0 Active [place]-3 Fat Ac-Cholecalciferol (DRY EYE OMEGA BENEFITS/VIT D-3) [...] 02/05/2021 Overview: Mar 06, 2015 Entered By: REON OLIVAS MD Comment: prior [place] 2001 Benign [...] 01/25/2021 Overview: Dx in 1960's. Dx in 1960's. Dx in 1959's. Dx in 1959's. Mar 03, 2018 Entered By: HERIBERTO HEWITT Comment: bilateral knee and right shoduler replacement Sclerosing cholangitis 01/25/2021 Overview: sees Dr. Gayle Mcclellan in [facility] sees Dr. Gayle Mcclellan in [facility] sees Dr. Gayle Mcclellan in [facility] sees Dr. Gayle Mcclellan in [facility] Aug 31, 2003 Entered By: SHAYY [...] [address] Zaheer Pitt in [place] Se[place] Dr. Zaheer Pitt in [place] Sees Dr. Zaheer Pitt in [place] Sees Dr. Zaheer Pitt in [place] Venous stasis dermatitis 01/25/2021 Wedge compression fracture [...] mRNA, LNP-s, No Pre serve, 2-Dose Series ([employer]) 08/28/2020,08/07/2020 documented as of this encounter Social History Tobacco Use Types Packs/Day Years Used Date Smoking Tobacco: Never Smokeless Tobacco: Never Tobacco Cessation:Counseling Given: Not Answered Alcohol Use Standard Drinks/Week Comments Yes 0 (1 standard drink = 0.6 oz pur e alcohol) wine Sex and Gender Information Value Date Recorded Sex Assigned at Not on file Gender Identity Not on file Sexual Orientation Not on file Job Start Date Occupation Industry Not on file Not on file Not on file documented as of this encounter Last Filed Vital Signs Vital Sign Reading Time Taken Comments Blood Pressure 152/76 05/06/2023 2:19 PM EDT Pulse 100 05/06/2023 2:19 PM EDT Temperature 36.6 C (97.8 F) 05/06/2023 2:19 PM ED T Respiratory Rate 16 05/06/2023 2:19 PM EDT Oxygen Saturation 84% 05/06/2023 2:19 PM EDT Inhaled Oxygen Concentration - - Weight 80.7 kg (177 lb 14.4 oz) 05/06/2023 2:19 PM EDT Height - - Body Mass Index 26.27 03/21/2023 11:01 AM EDT documented in this encounter Functional Status Functional Status Response [...] as of this encounter Progress Notes * Bert Patel MD - 05/06/2023 2:45 PM EDT Images from the original note were not included. Hematology/Oncology Outpatient Clinic note Natalia Elise Mchenry [address] [facility] [place] [address] Name: Jordy Tesfaye Date: 07/19/2022 CHIEF COMPLAINT: Jordy Tesfaye is a 82 year old male here today for f/u visit today. HEMATOLOGY/ONCOLOGY DIAGNOSIS: - Pancytopenia, most likely related to splenomegaly. 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 He follows up with [facility] and have periodic ERCP evaluation. He had colectomy in the past, now has ileostomy since 1974. (has underlying ulcerative colitis. - Iron deficiency anemia -left lower lobe well-differentiated mucinous adenocarcinoma. (08/21/2022) -also has right upper lobe lung nodule measuring 1.9 cm which is most likely cancerous but no biopsy done. He had COVID-19 infection in mid-March 2023.He received Paxlovid. TREATMENT HISTORY: -earlier he received IV iron in the form Ferric carboxymaltose (Injectafer) in June 2018 -IV Monoferric 1,000 mg 06/27/21 -IV Venofer weekly x 4 completed 09/25/20 and 04/19/22, 01/14/2020 -02/10/2023. - SBRT to both lung lesions at [facility] under the guidance of . CURRENT TREATMENT: Folic acid 1 mg daily Planning to start Venofer every other week x4. HISTORY: OTHER IMPORTANT HISTORY: - Primary sclerosing cholangitis diagnosed over 40 years back, [facility] getting [facility], perhaps every 3 monthly, had complications in the past, had a liver abscess in the past, last complication was somewhere in March 2017 when he was admitted at [facility]. -DJD, -BPH, S/P surgical intervention by Dr. Allison, has some intermittent hematuria since then. -He is on baby aspirin every day. -Hyperlipidemia -he takes oral Folic acid in oral Vitamin B12 replacement therapy. -Osteoporosis, he is on Fosamax Surgical history: - rectal fistula surgery in 1964 S/P appendectomy in 1966 -S/P cholecystectomy in 1968. -CBD reconstruction in 1970 and 1973 at [facility] -S/P colectomy with ileostomy in 1974 at [facility]. -bilateral knee joint replacement in 2001 -coronary artery stent placement following [place] in 2001 at [facility] -S/P bilateral carpal tunnel surgery in 2010 -right shoulder replacement surgery in 2016 in October 2018 he had the lumbar spine surgery with improvement of the local symptoms - surgical intervention for BPH by Dr. Allison, He is having ERCP on periodic basis, perhaps every 3 monthly at [facility] - last May, delayed at this point d/t urinary issues. Also was delayed d/t COVID 19. right periprosthetic proximal tibia fracture, now 4-1/2 months out. history of incomplete emptying status post TURP has had chronic infections including candidal infections. No longer self cathing Recently had episode of hematuria after being on a blood thinner for her broken extremity. Cystoscopy by Dr. Silva did not show any significant abnormalities and has had no further gross hematuriaor symptoms of infection recently. Interval History: Patient admitted to [facility] 02/08/22 - 02/14/22 Labs per PCP 02/20/22: Interval History: Patient had lung nodule noted on chest x ray completed during hospitalization in February at [facility]. PET-CT scan done on 05/23/2022: - 1. 2 FDG avid pulmonary nodules are seen, new from exam of 10/24/2020. There is an 19 mm nodule inthe left lower lobe posterior to the aorta and a 16 mm pleural-based nodule in the right upper lobe. No adenopathy or additional sites of malignancy are seen. 2. Cardiomegaly and pulmonary hypertension. 3. Postsurgical changes are noted in the abdomen. Patient has been recommended an IR guided biopsy. Planning on having this at [facility]. IR requesting a platelet transfusion day prior to procedure. PCP to be ordering if needed. Was also referred to hematology at [facility] to address further needs as indicated. HISTORY OF PRESENT ILLNESS: He has come the clinic for the follow-up, accompanied by his in the office, ambulating with the help of the walker, Recently he was seen at [facility] ER on 05/04/2023, he had COVID-19 infection about 2 weeks before that, repeat COVID testing was also positive, reviewed blood workup, hemoglobin was around 7.7, Platelet count was about 30,000. WBC count 3300. CT chest with PE protocol done on 05/04/2023: - 1. Cardiomegaly with evidence of pulmonary arterial hypertension. No pulmonary emboli identified. 2. Left lung base predominant airspace opacities favor atelectasis. Pneumonia considered less likely. 3. Stable 2.1 cm subpleural irregular right upper lobe nodule with unchanged additional nodules as above. Findings are stable from the 04/21/2023 exam. 4. Right shoulder arthroplasty with unchanged periprosthetic fracture. 5. Cirrhosis with evidence of portal venous hypertension. He has improved significantly, shortness of breath has improved, mild coughing,, no hemoptysis, denies any bleeding from the sites. No nausea no vomiting. He did receive Avatrombopag ( Doptelet) before the lung biopsy, no significant improvement of Platelet count noted as per the patient, received gone by about 3000 to 5000 range, he did receive Platelet transfusion before the biopsy from the left lower lobe. Biopsy was done at [facility]. Past Medical History: Diagnosis Date Basal cell carcinoma (BCC) Carpal tunnel syndrome Diabetes (HCC) DVT (deep vein thrombosis) in GERD (gastroesophageal reflux disease) Gout Heart attack (HCC) Hyperlipidemia Hypertension Iron deficiency Migraines Pancytopenia (HCC) Primary osteoarthritis involving multiple joints Sclerosing cholangitis Ulcerative colitis (HCC) Vertigo Past Surgical History: Procedure Laterality Date APPENDECTOMY W/OTHER PROCEDURE ARTHROPLASTY KNEE TOTAL Bilateral 2001 CARDIAC STENT PLACEMENT, ATHERECTOMY, 1 VESSEL CARPAL TUNNEL SURGERY Bilateral LAPAROSCOPIC COLECTOMY W/PROCTECTOMY W/ILEOSTOMY REMOVE GALLBLADDER SHOULDER ARTHROSCOPY SURGERY Right Social History Tobacco Use Smoking status: Never Smokeless tobacco: Never Vaping Use Vaping Use: Never used Substance and Sexual Activity Alcohol use: Yes Comment: wine Drug use: No Review of patient's allergies indicates: Allergen Reactions Oxycodone Hypotension and Nausea/vomiting Cant take any narcotics--only thing that works is Propofol Meperidine Morphine hypotension Current Outpatient Medications Medication Sig Dispense Refill [place] 3 1200 MG CAPS Take 1 Cap by mouth 4 times a day. allopurinol (ZYLOPRIM) 300 MG Tablet Take 1 Tablet by mouth in the morning. omeprazole (PRILOSEC) 20 MG CPDR Take 1 Capsule by mouth in the morning. ursodiol (ACTIGALL) 300 MG Capsule Take 1 Capsule by mouth in the morning and 1 Capsule before bedtime. diclofenac sodium (VOLTAREN) 75 MG TBEC Take 1 Tablet by mouth in the morning. misoprostol (CYTOTEC) 200 MCG Tablet Take 1 Tablet by mouth in the morning. Calcium Carbonate-Vitamin D 600-400 MG-UNIT Oral Tablet Take 1 Tablet by mouth in the morning. Alfuzosin HCl ER 10 MG TB24 Take 1 Tablet by mouth in the morning. folic acid 1 MG Tablet Take 1 Tablet by mouth in the morning. finasteride (PROSCAR) 5 MG Tablet Take 1 Tablet by mouth in the morning. Rosuvastatin Calcium 10 MG Oral Tablet Take 1 Tablet by mouth in the morning. alendronate (FOSAMAX) 70 MG Tablet Take 1 Tablet by mouth once a week. meclizine (ANTIVERT) 25 MG Tablet Take 25 mg by mouth 3 times a day as needed. Magnesium Oxide 400 (240 Mg) MG Tablet Take 1 Tablet by mouth in the morning. [place]-3 Fat Ac-Cholecalciferol (DRY EYE OMEGA BENEFITS/VIT D-3) 667-250 MG-UNIT CAPS Take 4 Caps bymouth daily. Cranberry 500 MG Oral Capsule Take 1 Capsule by mouth in the morning. Multiple Vitamins-Minerals (PRESERVISION AREDS 2+MULTI VIT) CAPS Take 1 Cap by mouth 2 times a day. Melatonin 3 MG Oral Capsule Take 1 Capsule by mouth at bedtime. Loratadine 10 MG Oral Tablet (Claritin) Take 1 Tablet by mouth daily as needed for Rhinitis. Excedrin Extra Strength 250-250-65 MG Oral Tablet (Isfzayc-Msovwraozqsxh-Oqdawvwl) Take 1 Tab by mouth every 6 hours as needed. Metoprolol Tartrate 100 MG Oral Tablet (Lopressor) Take 1 Tab by mouth daily. (Patient taking differently: Take 0.5 Tablets by mouth in the morning and 0.5 Tablets before bedtime.) 30 Tab 0 Acetaminophen 325 MG Oral Tablet (Tylenol) Take 3 Tabs by mouth every 6 hours. 30 Tab 0 Amoxicillin-Pot Clavulanate 500-125 MG Oral Tablet (Augmentin) Take by mouth 1 Tablet in the morning AND 1 Tablet at noon AND 1 Tablet before bedtime. Fluconazole 200 MG Oral Tablet (Diflucan) Take by mouth 200 mg in the morning. Aspirin 81 MG Oral Tablet Delayed Release Take by mouth 81 mg in the morning. Align Prebiotic-Probiotic 5-1.25 MG-GM Oral Tablet Chewable Take by mouth . Ciprofloxacin HCl 500 MG Oral Tablet (Cipro) Take 1 Tablet by mouth 2 times a day as needed. Prevagen 10 MG Oral Capsule (Apoaequorin) Take by mouth . Lubricant Eye Drops 0.4-0.3 % Ophthalmic Solution (Polyethyl Glycol-Propyl Glycol) Instill into eyeas needed for Dry eyes. Amoxicillin 875 MG Oral Tablet Take 1 Tablet by mouth in the morning and 1 Tablet before bedtime. Nirmatrelvir&Ritonavir 300/100 20 x 150 MG & 10 x 100MG Oral Tablet Therapy Pack (Paxlovid (300/100)) Take 2 pink tablets of Nirmatrelvir and 1 white tablet of Ritonavir two times a day by mouth. 30 Tablet 0 No current facility-administered medications for this visit. OBJECTIVE: BP 152/76 (BP Site: Left Arm, BP Position: Sitting, BP Cuff Size: Regular) | Pulse 100 | Temp 36.6 C (97.8 F) (Tympanic) | Resp 16 | Wt 80.7 kg (177 lb 14.4 oz) | SpO2 84% | BMI 26.27 kg/m | BSA 1.98 m PHYSICAL EXAM: General Appearance: No acute distress Lymph Nodes: Normal - No palpable lymph nodes in the neck or supraclavicular areas Lungs/Thorax: Normal - Clear to auscultation Heart: Normal - Regular rate and rhythm, normal S1, S2, no appreciable murmurs Extremities: +1 BLE edema Abdomen: Normal - Soft, nontender, bowel sounds present, +ostomy WNL Neurologic: alert and oriented x 4, ambulates with a walker LABS: Blood workup done on 01/02/2023: -WBC 1500, H&H of 9.3/29.4, Platelet count 70150 -BUN/Creat: 17/0.8 -AST 24, ALT 14, alkaline phosphatase 153, total bilirubin 1.3 -Serum iron: 91, TIBC 295, iron saturation 31% -few days back he received 2 bags of blood transfusion, IV iron in the form Venofer x1 dose) Blood workup done on 03/11/2023: - BUN/Creat: 31/1.0, calcium 9.0 - AST 17, ALT 13, alkaline phosphatase 201, bilirubin level 2.4. - Serum iron 62, TIBC 219, iron saturation --> 28% - Ferritin level --> 230. PET-CT scan (09/18/2022 ) -right upper lobe lung nodule now measuring 1.9 cm, -no significant changes noted in the 2.1 cm left lower lobe nodule. -right inguinal lymph node which are mildly FDG avid which could be reactive. CT chest with PE protocol done on 05/04/2023: - 1. Cardiomegaly with evidence of pulmonary arterial hypertension. No pulmonary emboli identified. 2. Left lung base predominant airspace opacities favor atelectasis. Pneumonia considered less likely. 3. Stable 2.1 cm subpleural irregular right upper lobe nodule with unchanged additional nodules as above. Findings are stable from the 04/21/2023 exam. 4. Right shoulder arthroplasty with unchanged periprosthetic fracture. 5. Cirrhosis with evidence of portal venous hypertension. IMPRESSION/PLAN: Pancytopenia, most likely related to splenomegaly which is related to cirrhosis of liver and portalhypertension Iron deficiency anemia Thrombocytopenia Mucinous adenocarcinoma involving the left lower lobe. He also has right upper lobe lung nodule which is suspicious for malignancy. He completed radiation treatment to the lung lesions at [facility]. He has persistent thrombocytopenia related to the splenomegaly and iron deficiency. He received intravenous iron the form Venofer, last iron treatment was received between December 2022 -February 2023. I am planning for CBCD Ferritin, iron profile every monthly and the decide about need for intravenous iron therapy Reviewed the recent CT scan of the chest with PE protocol done on 05/04/2023. Will continue to observe I am planning to see him back in the clinic about [address] Bert Patel Hem/Onc (This note was completed using the dictation program Fluency Direct. As such, there may be misspellings word substitutions, or other variations that should not change the essence of the clinical content of this encounter note. If there is need for further clarification, please direct questions to the provider listed above.) documented in this encounter Nursing Notes * Lina Pryor CMA - 05/06/2023 2:20 PM EDT Patient identifed by name and birthdate Do you have any concerns about pain management for today's visit? No Living Will or Advance Directive for Health Care as noted on the problem list. [facility] is a way you can talk to your provider on line through e-mail. Would you like to sign up? I can activate it for you? ALREADY ACTIVE Filed Vitals: 05/06/23 1419 BP: 152/76 Pulse: 100 Resp: 16 Temp: 36.6 C (97.8 F) TempSrc: Tympanic SpO2: 84% Weight: 80.7 kg (177 lb 14.4 oz) Patient was instructed to not get up on the exam table/exam chair until directed and assisted by their provider; patient is to remain seated in the chair/ wheelchair/ exam table/ exam chair for fall prevention and safety reasons. Patient is aware to have assistance to step down off exam table/exam chair with personnel. Patient voiced full comprehension of instructions. documented in this encounter Plan of Treatment Upcoming Encounters Date Type Department Care Team (Late st Contact Info) Description 09/04/2023 1:15 PM EST Office Visit Hematology/Oncology [place] [address] [place] [address] Bert Patel MD [address] [place] [address] Health Maintenance Due Date Last Done Comments Pneumococcal Vaccine: 65+ Years (1 - PCV) 1944 Depression Screening 1950 Diabetic Eye Exam 1956 Diabetic Foot Exam 1956 DTaP,Tdap,and Td Vaccines (1 - Tdap) 1957 VITAMIN D LEVEL ONCE IN A LIFETIME-USE SMARTSET# [id number] 1978 DXA Scan 1988 Hepatitis B (1 [...] anemia, unspecified iron deficiency anemia type- Primary Pancytopenia (HCC) Other pancytopenia Malignant neoplasm of lower lobe of left lung (HCC) Thrombocytopenia (HCC) Thrombocytopenia, unspecified Splenomegaly documented in this encounter Advance Directives Latest Code Status on File Code Status Date Activated Date Inactivated Comments Full Code 02/02/2021 1:18 PM 02/06/2021 4:00 PM This o rder reflects the patients wishes and were consensually agreed upon. Care Teams Stock Handler Relationship Specialty Start Date End Date Tom Bucio MD [address] [place] [address] PCP - General Family Medicine 10/14/17 documented as of this encounter"
--- OUTSIDE RECORDS SUMMARY | 2023-06-14 09:47 | External Medical Summary | Continuity of Care Document ---
Author Name Unknown Organization [address] [place], [place] [id number] Care Team Providers Care Certified Orthoptist Name Role Phone Tom Bucio Primary Care Physician [phone] [facility] [id number] Date(s): 04/01/23 - 04/01/[address] [address] [phone] Encounter Diagnosis Sinusitis(Discharge Diagnosis) - 04/01/23 Pneumonia(Discharge Diagnosis) - 04/01/23 Discharge Disposition: Home or Self Care Attending Physician: DAMIAN Ulloa Tara Allergies, Adverse Reactions, [...] heavy narcotics" Assessment and Plan Extracted from: Title:ABRS/Pneumonia Author:DAMIAN Ulloa Tara Da te:04/01/23 1.Sinusitis 2.Pneumonia Acute/Chronic: acute Goal:Resolution/ control Status:ongoing Data: records/pt report Plan: Had Covid and was treated with paxlovid. Has contd to have nasal/sinus congestion/drainage. Has productive cough. Will treat for pneumonia and ABRS with augmentin and azith. Teskiranon perles also rx. Follow up in 7-10 days. If symptoms worsen should be re-evaluated. Visit started as a telehealth. Appt initiated per pt. Provider in office, Pt in [place] in [place]. Used [facility] [employer]. Telehealth portion was 13 min. Pt was advised to come into office so he could be physically examined. This portion of the visit was 20 min for a total of 33 min for visit. Immunizations Given and Recorded Vaccine Date Status [...] PO, Daily Start Date: 05/14/13 Status: Ordered Augmentin 875 mg-125 mg oral tablet Start: 04/01/23 11:31:00 EDT, amoxicillin 1 tab, PO, q12h, Disp# 14, X 7 day, Stop: 04/08/23 11:31:00 EDT, Pharmacy: [facility] #[id number] Start Date: 04/01/23 Stop Date: 04/08/23 Status: Ordered azithromycin 250 mg oral tablet Start: 04/01/23 11:32:00 EDT, See Instructions, Disp# 6 tab, as directed on package labeling, Stop:04/08/23 11:32:00 EDT, Pharmacy: [facility] #[id number] Start Date: 04/01/23 Stop Date: 04/08/23 Status: Ordered Boostrix (Tdap) intramuscular suspension Start: 07/11/22 10:42:00 EST, 0.5 mL, IM, ONCE, Disp# 0.5 mL, Refills: 0, Note to Pharmacy: have shot in pharmacy, [facility]acy: [facility] #[id number] Start Date: 07/11/22 Status: Ordered Caltrate 600 [...] 1 tablet by mouth once daily, [facility]acy: [facility] #[id number] Start Date: 06/10/22 Status: Ordered magnesium oxide [...] on the leg daily until clear, Pharmacy: [facility] #[id number] Start Date: 11/07/22 Status: Ordered omega-3 polyunsaturated [...] PO, Daily Start Date: 02/14/22 Status: Ordered Tessalon 200 mg oral capsule Start: 04/01/23 11:33:00 EDT, 1 cap, PO, tid, Disp# 45 cap, PRN: as needed for cough, Stop: 05/17/23 11:33:00 EST, Pharmacy: [facility] #[id number] Start Date: 04/01/23 Stop Date: 05/17/23 Status: Ordered tolterodine 4 mg oral capsule, extended release Start: 12/12/22 20:04:00 EDT, 1 cap, PO, Daily, Disp# 30 cap, Refills: 1, [facility] #[id number] Start Date: 12/12/22 Status: Ordered triamcinolone 0.1% topical cream Start: 11/07/22 13:19:00 EDT, 1 appl, topical, bid, Disp# 80 g, Refills: 2, apply to dermatitis on the right leg for 2 weeks until clear, Pharmacy: [facility] #[id number] Start Date: 11/07/22 Status: Ordered Tylenol 500 [...] Start Date: 01/20/20 Status: Ordered Mental Status 04/01/23 Barriers to Learning one year None evide nt Mandatory Health Literacy Documentation Yes Health Literacy Communication Barriers N ever Primary Language [place] Problem List Condition Confirmation Course Effective Dates [...] stricture Confirmed Active Lung cancer Confirmed Active [place] 8, 9 Confirmed Active Multiple drug resistant [...] Lester Sinclair 2Sees Dr. Zaheer Pitt in [place] 32+ STAPHYLOCOCCUS AUREUS (RESISTANT TO OXACILLIN) (*MRSA*) [...] [address]. [address] Dr[address] Gayle Mcclellan in [facility] Diagnosis Diagnosis Type Effective Dates Health Status Clini lorena Service Informant Pneumonia Discharge Diagnosis 04/01/23 Non-Specified Sinusitis Discharge Diagnosis 04/01/23 Procedures Procedure Date Related Diagnosis Body Site [...] no acutedisplaced rib fracture or pheumothorax identified. 32Jogirish Infante 331. No displaced fractures left sixth [...] Most recent to oldest [Reference Range]: 1 Temperature [36.5-37.9 DegC] 36.6 DegC (04/01/23 8:39 AM) Heart Rate 65 bpm (04/01/23 8:39 AM) Respiratory Rate 18 br/min (04/01/23 8:39 AM) Blood Pressure 110/50mmHg (04/01/23 8:39 AM) Cuff Pulse Pressure 60 mmHg (04/01/23 8:39 AM) Social History Social History Type Response Smoking Status Never smoked cigaret debby Sex Male [facility] Outpt Note * DAMIAN Ulloa Tara: PERFORM Event Display: [facility] Outpt Note Authored Date: [id number] Chief Complaint woke on very congested and cough. tested positive. went to urgent care. got paxlovid from thru . still has congestion and cough. sometimes productive. sinuses are draining. no fevers. History of Present Illness Was on Paxlovid for COVID. Contdto have bring up a lot of phlegm at times. No fevers. Pnd nasal congestion and drainage. 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 +cough Cardiovascular: No chest pain, palpitations, syncope, edema Physical Exam Vitals & Measurements T:36.6C HR:65(Monitored) RR:18 BP:110/50 SpO2:95% PHQ2 Data(Data Documented on:04/01/2023 08:39) Emotional health assessment NEGATIVE head- normocephalic eyes- PERRLA , conjunctiva clear, sclera white, anicteric, ears- TM's non-injected, good light reflex, no protrusion or retraction nose -nares patent, no sinus pressure throat- pharynx non erythematous, no exudate, no masses mouth- buccal mucosa, moist and intact, dentition intact, no caries neck-no bilateral anterior or posterior cervical lymphadenopathy Pulmonary- chest expansion symmetric,Few crackles in right lower lobe. CV (cardiovascular)- RRR no m/r/g (systolic ejection murmur, rubs, gallops), good peripheral perfusion Neuro:Alert, Oriented Assessment/Plan 1.Sinusitis 2.Pneumonia Acute/Chronic: acute Goal:Resolution/ control Status:ongoing Data: records/pt report Plan:Had Covid and was treated with paxlovid. Has contd to have nasal/sinus congestion/drainage. Has productive cough. Will treat for pneumonia and ABRS with augmentin and azith. Tessalon perles also rx. Follow up in 7-10 days. If symptoms worsen should be re-evaluated. Visit started as a telehealth. Appt initiated per pt. Provider in office, [place] in [place]. Used [facility] [employer]. Telehealth portion was 13 min. Pt was advised to come into office so he could be physically examined. This portion of the visit was 20 min for a total of 33 min for visit. Problem List/Past Medical History Ongoing Abdominal wall hernia Allergy Basal cell carcinoma CAD (coronary artery disease) Cellulitis Cellulitis of leg Degenerative joint disease of shoulder region Diabetes Enlarged prostate Gout Hand numbness Health care maintenance High cholesterol History of ileostomy HYPERTENSION. Iron deficiency anemia Kidney stones Liver cirrhosis Lung cancer Lung nodule [place] Migraine MRSA (methicillin resistant staph aureus) culture [...] tablet), 300 mg= 1 tab, PO, Daily amoxicillin-clavulanate(Augmentin 875 mg-125 mg oral tablet), 1 tab, PO, q12h aspirin(Aspirin Low Dose 81 mg oral delayed release tablet), 81 mg= 1 tab, PO, Daily azithromycin(azithromycin 250 mg oral tablet), See Instructions benzonatate(Tessalon 200 mg oral capsule), 200 mg= 1 cap, PO, tid, PRN bifidobacterium infantis(Align 4 mg oral capsule), 4 mg= 1 cap, PO, Daily calcium and vitamin D combination(Caltrate 600 with D), 1 tab, PO, Daily cranberry, 500 mg, PO, Daily diclofenac(diclofenac sodium 75 mg oral delayed release [...] due01/04/23and every 1year Due Adult COVID-19 Vaccination due04/01/23Unknown Frequency Shingles Vaccine due04/01/23One-time only Due In Future Falls Plan of [...] Paul Diabetes Management A1c on01/14/23.Satisfied by Contributor_system, [id number] Diabetic Eye Exam on09/19/22.Satisfied by MD Horvath Michael P Lipid Screening on01/14/23.Satisfied by Contributor_system, [email or web address] Medicare Annual Wellness Visit on07/11/22.Satisfied by MD Bucio Juan Electronic Signature on File Electronically Reviewed/Signed by: DAMIAN Walton Author Signature Dt/Tm:04/01/2023 12:32 PM Department of Family Medicine TB Patient Care team information Care Team Personnel Name: MD Holcomb Jonathan D Position: Physician - Family Med Member Role: Lifetime Relationship Address: Address: [facility] [address] Name: MD Pineda Tiane Position: Resident - Pathologist Member Role: Lifetime Relationship Address: Address: [address] [place] [address] Name: MD Bucio Juan Position: Physician - Family Med Member Role: Primary Care Provider Address: Address: [address] [place] [address] Care Team Related Persons Name: ROSA HUERTA Address: home [address] [place], [place] [phone] Name: TERESA CONN Address: home [address] [place] [address]
--- OUTSIDE RECORDS SUMMARY | 2023-06-14 09:47 | External Medical Summary | Continuity of Care Document ---
Author Name Unknown Organization [facility] [address] [place], [place] [address] Care Team Providers Care Information Consultant Name Role Phone Tom Bucio Primary Care Physician [phone] [id number] Date(s): 04/10/23 - 04/10/23 [facility] [address] [facility] [address], [address] [place], [place] [phone] Encounter Diagnosis Abnormality of albumin(Final) - Other specified abnormal findings of blood chemistry(Final) - Discharge Disposition: Home or Self Care Attending Physician: MD Bucio Juan Referring Physician: MD Bucio Juan Allergies, Adverse Reactions, Alerts Substance Reaction Severity [...] and no allergic reaction. 3"all heavy narcotics" Immunizations Given and Recorded Vaccine Date Status [...] 23-valent vaccine 11/16/03 Recorded 1Result Comment: at [facility] [place] 2Result Comment: 2022-09-24: Historical information-source unspecified 3Result [...] to Pharmacy: have shot in pharmacy, Pharmacy: [email or web address] #[id number] Start Date: 07/11/22 Status: Ordered Caltrate 600 [...] 1 tablet by mouth once daily, Pharmacy: [email or web address] #[id number] Start Date: 06/10/22 Status: Ordered magnesium oxide [...] PO 1 tab at lunch and 1 2 tabs at hs Start Date: 05/13/11 Status: Ordered miSOPROStol 200 mcg oral tablet Start: 02/14/22 10:36:00 EDT, 1 tab, PO, Daily, with diclofenac Start Date: 02/14/22 Status: Ordered mupirocin 2% topical ointment Start: 11/07/22 13:19:00 EDT, See Instructions, Disp# 22 g, Refills: 3, apply to wounds on the leg daily until clear, Pharmacy: [facility] #[id number] Start Date: 11/07/22 Status: Ordered omega-3 polyunsaturated [...] Daily, Disp# 30 cap, Refills: 1, Pharmacy: [facility] #[id number] Start Date: 12/12/22 Status: Ordered triamcinolone 0.1% topical cream Start: 11/07/22 13:19:00 EDT, 1 appl, topical, bid, Disp# 80 g, Refills: 2, apply to dermatitis on the right leg for 2 weeks until clear, Pharmacy: [facility] #[id number] Start Date: 11/07/22 Status: Ordered Tylenol 500 [...] PO, bid Start Date: 01/20/20 Status: Ordered Problem List Condition Confirmation Course Effective Dates [...] stricture Confirmed Active Lung cancer Confirmed Active [place] 8, 9 Confirmed Active Multiple drug resistant [...] Lester Sinclair 2Sees Dr. Zaheer Pitt in [place] 32+ STAPHYLOCOCCUS AUREUS (RESISTANT TO OXACILLIN) (*MRSA*) [...] [address]. [address] Gayle Mcclellan in [facility] Procedures Procedure Date Related Diagnosis Body Site [...] 63Colectomy - stoma revision. 64[place] 65Times 2 Results Laboratory List Name Date Albumin Level (ALBUMIN) 04/10/23 Protein, Total (PROTEIN) 04/10/23 Most recent to oldest [Reference Range]: 1 Alb [3.5-5.0 g/dL] 2.3 g/dL 1 *LOW* (04/10/23 12:44 PM) Prot [6.3-8.2 g/dL] 5.7 g/dL 2 *LOW* (04/10/23 12:44 PM) 1Result Comment: Testing Performed By: Dept of Pathology [facility], [address] [place] [address], [place] [address] 2Result Comment: Testing Performed By: Dept of Pathology [facility] [place], [address] [place] [address] Social History Social History Type Response Smoking Status Never smoked cigaret debby Sex Male Patient Care team information Care Team Personnel Name: MD Zhang, Shakeel Dickerson Position: Physician - Family Med Member Role: Lifetime Relationship Address: Address: [address] [address] Name: MD Pineda Tiane Position: Resident - Pathologist Member Role: Lifetime Relationship Address: Address: [address] [place] [address] [place] Name: MD Bucio Juan Position: Physician - Family Med Member Role: Primary Care Provider Address: Address: [address] [place] [address] [place] Care Team Related Persons Name: ROSA HUERTA Address: home [address] [place], [place] [phone] Name: TERESA CONN Address: home [address] [place] [address]
--- OUTSIDE RECORDS SUMMARY | 2023-06-14 09:47 | External Medical Summary ---
Author Name Unknown Address Unknown Organization K01:[facility] [address] [place] [address] Laboratory Report Ordering Provider Test Date Status CLAYTON CAMACHO 06/04/2023 08:46:13 Final Observation Date Value Abnormality Reference (Units ) Status Iron 06/04/2023 08:46:13 60 45-176 (ug/dL) Final Iron-binding capacity 06/04/2023 08:46:13 204 Below low normal 250-425 (ug/dL) Final Transferrin Sat % 06/04/2023 08:46:13 29 15-55 (%) Final Performing Location [facility] [address] [place] [address]
--- OUTSIDE RECORDS SUMMARY | 2023-06-14 09:47 | External Medical Summary ---
Author Name Unknown Address Unknown Organization K01:[facility] [address] [place] [address] Laboratory Report Ordering Provider Test Date Status CLAYTON CAMACHO 06/04/2023 08:46:13 Final Observation Date Value Abnormality Reference (Units ) Status Ferritin 06/04/2023 08:46:13 146 30-400 (ng /mL) Final Performing Location [facility] - [address] [place] [address]
[2023-06-14] MEDS ORDERED: SODIUM CHLORIDE 0.9% 500 ML IV ONE ×2 (10:12→15:56)
[2023-06-14 11:01] LABS: Alanine Aminotransferase 19 U/L (7-52); Albumin Globulin Ratio 0.7 (0.9-2); Albumin Level 2.1 gm/dl (3.4-5.0); Alkaline Phosphatase 133 U/L (34-104); Anion Gap 5 (3-11); Aspartate Aminotransferase 22 U/L (13-39); BUN Creatinine Ratio 36.9 (10-20); Bilirubin,Total 3.1 mg/dl (0.2-1.0); Blood Urea Nitrogen 59 mg/dl (6-23); Calcium 8.7 mg/dl (8.6-10.3); Carbon Dioxide 17 mmol/L (21-32); Chloride 107 mmol/L (98-107); Est GFR (African American) 44.9 ml/min; Est GFR (Non-African American) 38.7 ml/min; Glucose 234 mg/dl (70-99(Fasting)); Magnesium 1.7 mg/dl (1.7-2.4); Potassium 5.5 mmol/L (3.5-5.1); Sodium 129 mmol/L (136-145); Total Protein 5.1 gm/dl (6.0-8.3)
--- NOTE | 2023-06-14 11:04 | XRay Report ---
XR chest 1V portable HISTORY: DYSPNEA COMPARISON: Chest CTA 05/04/2023. FINDINGS: No pneumothorax. The right lung is clear. The heart remains enlarged. There is a moderate l eft pleural effusions and left basilar densities. There is a right shoulder prosthesis. There is mild central pulmonary vascular congestion without overt edema. IMPRESSION: Moderate left pleural effusion and left basilar densities. This has progressed in the interval. ACT 112: Negative or not required by law. Electronically signed by: Alexander Mcgee M.D. 06/14/2023 11:03 AM
[2023-06-14 11:07] LABS: Troponin I High Sensitivity 5.7 pg/ml (0-20)
[2023-06-14 11:08] LABS: Hematocrit (blood only) 24.2 % (42.0-52.0); Hemoglobin 8.2 g/dl (14.0-18.0); Mean Corpuscular Hemoglobin 41.6 pg (25.0-34.0); Mean Corpuscular Hgb Conc 33.9 g/dL (32.0-36.0); Mean Corpuscular Volume 122.8 fL (80.0-100.0); Platelet Count 20 K/uL (130-400); RDW Standard Deviation 62.6 fL (36.4-46.3); Red Blood Count 1.97 M/uL (4.70-6.10); White Blood Count 7.43 K/ul (4.8-10.8)
[2023-06-14 11:16] LABS: Basophils # (auto) 0.01 K/uL (0.00-0.20); Basophils % (auto) 0.1 %; Dohle Bodies 1+; Eosinophils # (auto) 0.04 K/uL (0.00-0.50); Eosinophils % (auto) 0.5 %; Immature Granulocytes # (auto) 0.04 K/uL (0.01-0.20); Immature Granulocytes % (auto) 0.5 %; Lymphocytes # (auto) 0.33 K/uL (1.20-3.40); Lymphocytes % (auto) 4.4 %; Macrocytosis Present; Monocytes # (auto) 0.26 K/uL (0.11-0.59); Monocytes % (auto) 3.5 %; Neutrophils # (auto) 6.75 K/uL (1.40-6.50); Platelet Estimate Decreased (Normal); Polychromasia 1+; Tear Drop Cells 2+
[2023-06-14 11:30] LABS: INR 1.3 (0.9-1.1); Partial Thromboplastin Ratio 1.3; Partial Thromboplastin Time 36 Seconds (21-31); Prothrombin Time 14.1 Seconds (9.0-12.0)
[2023-06-14 11:32] LABS: Adenovirus PCR Not Detected (NotDetected); Bordetella parapertussis PCR Not Detected (NotDetected); Bordetella pertussis PCR Not Detected (NotDetected); Chlamydia pneumoniae PCR Not Detected (NotDetected); Coronavirus 229E PCR Not Detected (NotDetected); Coronavirus CoV-2 (COVID19)PCR Not Detected (NotDetected); Coronavirus HKU1 PCR Not Detected (NotDetected); Coronavirus NL63 PCR Not Detected (NotDetected); Coronavirus OC43PCR Not Detected (NotDetected); Human Metapneumovirus PCR Not Detected (NotDetected); Influenza A PCR Not Detected (NotDetected); Influenza B PCR Not Detected (NotDetected); Mycoplasma pneumoniae PCR Not Detected (NotDetected); Parainfluenza Virus 1 PCR Not Detected (NotDetected); Parainfluenza Virus 2 PCR Not Detected (NotDetected); Parainfluenza Virus 3 PCR Not Detected (NotDetected); Parainfluenza Virus 4 PCR Not Detected (NotDetected); Respiratory Syncytial VirusPCR Not Detected (NotDetected); Rhinovirus/Enterovirus PCR Not Detected (NotDetected)
[2023-06-14] MEDS ORDERED: OPTIRAY 320 500ml IV ONE (11:56)
[2023-06-14 12:02] LABS: Appearance Urine Cloudy (Clear); Blood Urine Negative (Negative); Color Urine Dark Yellow; Epithelial Cell Urine Auto >30 /lpf (0-5); Glucose Urine UA Negative (Negative); Ketones Urine Negative (Negative); Leukocyte Esterase Urine Trace (Negative); Nitrite Urine Positive (Negative); Protein Urine Negative (Negative); RBC Urine Automated 0-4 /hpf (0-4); Specific Gravity Urine 1.021 (1.000-1.030); Urobilinogen Urine Negative (Negative)
[2023-06-14 12:06] LABS: Bilirubin Urine 2+ (Negative)
--- NOTE | 2023-06-14 12:06 | Electrocardiogram Report ---
Test Reason : Blood Pressure : / mmHG Vent. Rate : 072 BPM Atrial Rate : 072 BPM P-R Int : 230 ms QRS Dur : 094 ms QT Int : 386 ms P-R-T Axes : 024 -18 021 degrees QTc Int : 422 ms Sinus rhythm with 1st degree A-V block Low voltage QRS Poor R wave progression, consider anterior TN vs. lead placement vs. LVH T wave abnormality, consider anterior ischemia Abnormal ECG When compared with ECG of 04-MAY-2023 04:58, No significant change was found Confirmed by Candelario Estrella ([id number]) on 06/14/2023 12:05:51 PM Referred By: REFERRED SELF Confirmed By:Raul Estrella
[2023-06-14 12:20] LABS: Amorphous Sediment Urine Present (None Prsent); Bacteria Urine Automated 1+ (Negative)
--- NOTE | 2023-06-14 12:41 | CT Scan Report ---
CHEST CT WITH CONTRAST CT DOSE: 789.31 mGy.cm HISTORY: L pl effusion, fall 5 d ago with bruising L chest TECHNIQUE: Multiaxial CT images of the chest were performed following the intravenous administration of contrast. A dose lowering technique was utilized adhering to the principles of ALARA. COMPARISON: Chest CTA 05/04/2023. FINDINGS: There are multiple old, healed bilateral rib fractures. There is an acute left posterior se venth rib fracture. There are multiple healing left anterior rib fractures. There is a right shoulder prosthesis. Compression deformities within the thoracic and lumbar spine are again noted. These are likely chronic. No pneumothorax. The central airways are patent. Stable 7 mm nodule within the right upper lobe on image 53. Right upper lobe irregular density on image 89 has increased in size. This me asures 3.8 cm, previous measuring 2.1 cm. Patchy consolidation within the base the right lower lobe h as also progressed. Linear consolidation within the left upper lobe posteriorly and left lower lobe c onsolidation has progressed. This could be due to compressive atelectasis from the moderate left pleu ral effusions. Heterogeneous enhancement within the left lung consolidation could represent a superim posed pneumonia. The left pleural effusions does not appear to represent a hemothorax. There is left posterior chest wall soft tissue edema. A cirrhotic liver and splenomegaly persists. There is a small amount of upper abdominal ascites. There is a 14 mm hypervascular focus within the right hepatic dom e. Pneumobilia is noted. Normal esophagus. No mediastinal or hilar lymphadenopathy. The main pulmonar y arteries are patent. The heart remains enlarged. No pericardial effusion. Anterior diaphragmatic ly mphadenopathy persists. Normal caliber thoracic aorta with no evidence for a dissection. Healing righ t scapular fracture again noted. Increase in size in a 2.1 cm nodule within the superior segment of t he right lower lobe on image 101. IMPRESSION: 1. There is an acute left posterior seventh rib fracture. No pneumothorax. 2. Multiple healing left anterior rib fractures. 3. Moderate left pleural effusions. 4. Consolidation within the left upper lobe posteriorly and throughout the majority of the left lower lobe. This favors compressive atelectasis from the pleural effusion. However, there is heterogeneous enhancement within these areas of consolidation. Therefore, superimposed pneumonia is also considere d in the differential diagnosis. 5. An irregular consolidation within the periphery of the right upper lobe has increased in size and measures 3.8 cm, previous measuring 2.1. Therefore, this is concerning for progression of the patient 's known primary malignancy . 6. Patchy densities at the base the right lower lobe have also progressed. This could represent a pne umonia. 7. Right lung nodules again noted. The 2.1 cm nodule within the right lower lobe has increased in siz e. These are concerning for metastatic disease. 8. Additional findings as described above. ACT 112: Negative or not required by law. Electronically signed by: Alexander Mcgee M.D. 06/14/2023 12:39 PM
--- NOTE | 2023-06-14 13:41 | History & Physical Report ---
Date of Service June 14, 2023 Assessment & Plan (1) Pleural effusion: Plan: Worsening SOB x 5 days In the setting of fall + [place]RI[place] lung cancer; concern for potential exudative effusion or hemothorax Hypoxic on arrival at 90% SpO2 on oxygen mask 4L/min; no at home oxygen use Chest CT revealed moderate left pleural effusions, and consolidation within the left upper lobe posteriorly BioFire negative Hgb 8.2 and HCT 24.2 on arrival; chronically low, however continue to trend H&H ABG ordered, pending Continuous oxygen supplementation to maintain SpO2 >94% Lidocaine patch to be applied to left upper back Acetaminophen 650mg p.o. q4h as needed for pain Patient's reports that he does not tolerate narcotics well Discussed left-sided thoracentesis with pulmonology; plan is to have IR perform thoracentesis on Saturday 06/16 if possible; chronic ITP (low platelets at 20 on arrival) Pulmonology reported that he would need platelets to be >50 for a tap; patient did not respond to Doptelet or steroids prior to previous biopsy, suboptimal response when given just before (would need to time the thoracentesis) Appreciate pulmonology consult A.m. CBC, BMP, PT/INR, mag, LFTs (2) Pneumonia: Plan: Chest CT could not rule out superimposed pneumonia Patient does not exhibit leukocytosis, but given his pancytopenia his white blood cell count is elevated with a neutrophil predominance Clinically, patient endorses productive cough with worsening SOB over the past week MRSA swab ordered, pending Started on Rocephin 2000mg IV q24h + Azithromycin 500mg IV q24h for empiric PNA coverage (3) Multiple falls: Plan: Multiple falls, with most recent fall onto walker on Saturday 06/09 with bruising on left chest wall Chest CT revealed acute left posterior seventh rib fracture; no pneumothorax Patient ambulates with a walker at baseline PT/OT consulted (4) Primary cancer of left upper lobe of lung: Plan: Left lower lobe mucinous adenocarcinoma 08/21/[address] on 06/14 revealed right lung nodules that have grown in size concerning for metastatic disease S/p radiation at [facility] Patient follows with Dr. Bert Patel at [facility] Heme/Onc (5) FORTUNATO (acute kidney injury): Plan: Acute on chronic CT abdomen/pelvic ordered, pending BUN 59, creatinine 1.60 (baseline 0.93), EGFR 38.7 on arrival Avoid nephrotoxic agents Hold Voltaren p.o. Hold fluid resuscitation in the setting of pleural effusions (6) Hypotension: Plan: Patient has been mildly hypotensive in the ED with SBP <100 Will hold home dose of metoprolol on 06/14 Continue regular metoprolol dosing at 50 mg at midday, and 75 mg in the evening pending return to normal BP (7) Prediabetes: Plan: Borderline; stable; not on any home medications Last A1c 6.7% on 02/05/2022 Glucose 234 on arrival A.m. A1c (8) Hx of ulcerative colitis: Plan: S/p colectomy, ileostomy in 1990 & 1994 Colostomy status (9) Thrombocytopenia due to hypersplenism: Plan: Thrombocytopenia at 20 upon arrival; chronic; stable (10) Cirrhosis: Plan: Noted on multiple abdomen/pelvic CT Total bilirubin elevated at 3.1 Elevated alk phos at 133 Continue to monitor daily LFTs Patient was cautioned for excessive Tylenol use, as his reported >3000mg in a day this week (11) Hyponatremia: Plan: Na at 129 on arrival Monitor daily BMP (12) Hyperkalemia: Plan: K elevated at 5.5 on arrival Continuous telemetry monitoring Monitor daily BMP (13) Bladder spasms: Plan: Patient is unable to tolerate Dos Santos as he has a history of urethral tear Bladder scan QS (more often if needed) Continue alfuzosin, Proscar (14) History of kidney stones: Plan: Continue ursodiol, allopurinol No history of gout, per patient (15) Pancytopenia: Plan Disposition: Admit to PCU telemetry Full code Regular diet, 1500 mL fluid restriction VTE PPx: SCDs (hold chemical DVT PPx in setting of potential exudative effusion) History of Present Illness Chief Complaint: Worsening SOB/dyspnea Primary Care Provider: Tom Bucio MD Jordy is an 83yo male with PMH of ITP, lung cancer, borderline diabetes, kidney stones, BPH, CKD stage II, ulcerative colitis s/p ileostomy, chronic venous insufficiency, HTN, primary sclerosing cholangitis, CAD, [place] s/p heart stent in 2001 (on aspirin), and HLD. He presented for worsening SOB since 06/12. Patient reports that he sustained a left-sided fall onto his walker on Saturday 06/09; no LOC; no head strike; not on blood thinners; he reports that he bruised his left upper lateral pectoral muscle as the walker caught under his armpit. Pain radiates to his upper left back. Pain does not radiate down the arm. He has been taking Tylenol 500 mg (2 tablets QID; advised to cut back on this), as well as applying lidocaine gel and patches for pain. His SOB developed on , and has gradually worsened. He endorses SOB at rest, as well as with exertion; worse when lying flat. No at home oxygen use. Uses a walker at baseline. He reports that he took all of his regular morning medications. No recent changes in medications. Patient manages his own medications, along with his (Betty). He denies a history of smoking, tobacco use, vaping, alcohol, and recreational drug use. He notes that he had a history of blood clot in his left lower extremity 20 years ago; however he is not on any blood thinners. No sick contacts. 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 Patient is mildly hypoxic at 93% SpO2 on oxygen mask at time of admission. ED course: NSS 500 mL IV 4L oxygen mask ROS: Patient endorses productive cough (clear sputum production), SOB at rest, abdominal discomfort (d/t hernia and straining to walk), and swelling/numbness/tingling in legs (ongoing). Patient denies fever, chills, nightsweats, CP, pleuritic CP, N/V, urinary s/s, dysuria, burning with urination, blood in the urine/stool. Amendment: CT of the abdomen/pelvis came back more in favor of a hemothorax given the left posterior rib fracture, and an increased density within the moderate left pleural effusion. It also noted questionable active arterial extravasation of the left posterior hemothorax. Transfer center was contacted for transfer to [place]. Spoke on the phone with trauma surgery (Dr. Danielle) and IR (Dr. Weems) regarding the need for intervention or IR embolization. It was noted that the patient has ITP/pancytopenia with chronic low platelets (20 today) and hemoglobin (8.[address] today). CT images transferred for review. Allergies Allergy/AdvReac Type Severity Reaction Status Date / Time Egg Derived Allergy Intermediate RASH WITH Verified 05/05/23 14:28 LARGE QUANTITIES latex Allergy Intermediate Verified 05/05/23 14:28 metformin Allergy Intermediate GI ISSUES Verified 05/05/23 14:28 pollen extracts Allergy Intermediate ITCHY Verified 05/05/23 14:28 EYES, SNEEZING, CONGESTION benzonatate AdvReac Severe Weakness Verified 05/05/23 14:28 [From Raeann Germain] codeine AdvReac Intermediate N/V, Verified 05/05/23 14:28 HYPOTENSTION fentanyl AdvReac Intermediate EXTREME Verified 05/05/23 14:28 NAUSEA; BP DROPS meperidine AdvReac Intermediate N/V, Verified 05/05/23 14:28 HYPOTENSTION morphine AdvReac Intermediate N/V, Verified 05/05/23 14:28 HYPOTENSTION Flu Virus Vaccine Allergy Intermediate AVOIDS DUE Uncoded 05/05/23 14:28 TO EGG ALLERGY NARCOTICS AdvReac Intermediate N/V, Uncoded 05/05/23 14:28 HYPOTENSTION Home Medications Medication Instructions Recorded Confirmed Type alendronate 70 mg tablet (Fosamax) 70 mg PO WK 09/29/18 06/14/23 History allopurinol 300 mg tablet 300 mg PO QAM 09/29/18 06/14/23 History finasteride 5 mg tablet (Proscar) 5 mg PO QAM 09/29/18 06/14/23 History magnesium oxide 400 mg PO QAM 09/29/18 06/14/23 History folic acid 1 mg tablet 1 mg PO DAILY 02/02/19 06/14/23 History cranberry 500 mg capsule 500 mg PO QAM 04/02/19 06/14/23 History meclizine 25 mg tablet 25 mg PO TID PRN Vertigo 04/02/19 06/14/23 History (Medi-Meclizine) loratadine 10 mg tablet (Claritin) 10 mg PO QAM 06/24/19 06/14/23 History calcium carbonate 500 mg-vitamin 1 tab PO DAILY 02/09/21 06/14/23 History D3 5 mcg (200 unit) tablet (Calcium 500 + D) misoprostol 100 mcg tablet 200 mcg PO QAM 02/09/21 06/14/23 History (Cytotec) omega 9-crj-rek-fish oil 1,000 mg 1 cap PO DAILY 02/09/21 06/14/23 History (120 mg-180 mg) capsule (Fish Oil) metoprolol tartrate 25 mg tablet 75 mg (3 x 25 mg) PO QPM #90 tabs 02/13/21 06/14/23 Rx alfuzosin 10 mg tablet,extended 10 mg PO QDD 04/30/21 06/14/23 History release 24 hr diclofenac sodium 75 mg 75 mg PO QAM 04/30/21 06/14/23 History tablet,delayed release omeprazole 20 mg capsule,delayed 20 mg PO DAILY 04/30/21 06/14/23 History release Bifidobacterium infantis 4 mg 4 mg PO DAILY 09/04/22 06/14/23 History capsule (Align) Prevagen 1 tab PO QAM 09/04/22 06/14/23 History acetaminophen 500 mg tablet 500 - 1,000 mg PO Q6H PRN Pain 09/04/22 06/14/23 History (Tylenol Extra Strength) omega-3s 667 wb-pfp-xse-fish 3 cap PO DAILY 10/07/22 06/14/23 History oil-vitamin D3 250 unit capsule (Dry Eye [employer] Benefits) propylene glycol-glycerin 0.6 2 drp ophthalmic (eye) BID 10/07/22 06/14/23 History %-0.6 % eye drops in a dropperette (Soothe Lubricant) aspirin 81 mg tablet,delayed 81 mg PO DAILY 11/18/22 06/14/23 History release melatonin 3 mg tablet 5 mg PO HS PRN SLEEP 11/18/22 06/14/23 History metoprolol tartrate 50 mg tablet 50 mg PO .MIDDAY 11/18/22 06/14/23 History ursodiol 300 mg capsule 900 mg PO BID 11/18/22 06/14/23 History rosuvastatin 10 mg tablet 5 mg PO HS 02/20/23 06/14/23 History albuterol sulfate 90 mcg/actuation 2 puff inhalation Q6H PRN Other 05/05/23 06/14/23 History aerosol inhaler dextromethorphan-guaifenesin 10 10 ml PO Q4H PRN Cough 05/05/23 06/14/23 History mg-100 mg/5 mL oral liquid (Safe Tussin DM) triamcinolone acetonide 0.1 % 1 applic topical DAILY PRN Other 06/14/23 06/14/23 History topical ointment Past Med/Surg History Medical History (Updated 06/14/23 @ 15:43 by Alexander Yancey PA-C) Atelectasis Bronchitis Basal cell carcinoma Lung cancer Left lower lobe pulmonary nodule Hypoxia Solitary pulmonary nodule Right tibial fracture Right tibial fracture Abscess of right shoulder (~09/2020) Macular degeneration Hx of vertigo Hx of basal cell carcinoma Benign prostatic hyperplasia with urinary obstruction Hx of ulcerative colitis S/p colectomy- ileostomy 1990 and 1994 History of IBS Hx of deep venous thrombosis LLE "A LONG TIME AGO" 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 Neurogenic bladder NO DOS SANTOS [employer]HETER 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 No evidence of thrombus on echo May 2022. TIA (transient ischemic attack) TIA vs complex migraine February 2019 Type 2 diabetes mellitus Left lower lobe pneumonia PVCs (premature ventricular contractions) Asymptomatic per patient History of kidney stones High cholesterol HTN (hypertension) CAD (coronary artery disease) STENT X 1 (2001) AT [facility] Sciatica Enlarged prostate Ileostomy in place History of myocardial infarction STENT X 1 (2001) S/P B/L TKA Stable; Has not had to use NTG since stent placement Surgical History History of cystoscopy History of lumbar laminectomy Hx of bilateral cataract extraction History of anesthesia reaction SLOW TO WAKE, BREATHING ISSUES, NAUSEA AND VOMITING History of colonoscopy History of cholecystectomy History of ERCP MULTIPLE History of appendectomy History of exploratory laparotomy X2 "COMMON DUCT RECONSTRUCTION" History of arthroplasty of right shoulder Right TSA= 05/24/16= Grade 1 view, MAC#4 at [facility] History of hand surgery RT/LEFT THUMBS History of total bilateral knee replacement Family History Father Myocardial infarction Family/Other Hypertension Nephrolithiasis Sister FH: ovarian cancer Other Family history of breast cancer in mother Social History Smoking Status: Never smoker Second Hand Exposure: Yes (childhood ); Do You Dip or Chew Tobacco: No; Hx Alcohol Use: Yes Alcohol type: wine Alcohol Intake Frequency: Monthly or Les s Hx Substance Use: No Preferred Language: Marshallese Communication Ability: Effective Visual Impairment: Limited Hearing Ability: Use of Hearing Aid Child Day Care Teacher Required: No Beliefs That Will Affect Care: None marital status: Current Living Situation: Spouse Current Living Situation Comment: Home 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 Other Information That Helps Us Care for You: No Feels Safe at Home: Yes Safety Concerns: Feels Safe At This Time Diet Comment: avoid heavy roughage during the past year weight has: remained stable Assistive Devices: Hearing Aid - Bilateral, Walker and Wheelchair Review of Systems Review of Systems: See HPI above Physical Exam Physical Exam: General: Mild respiratory distress; patient gasps between breaths while talking; frail appearing; non-toxic appearing; cooperative; 93% SpO2 on 4L oxygen mask HEENT: normocephalic, atraumatic; no scleral icterus; PERRLA w/ EOMs intact; moist mucus membrane; vision and hearing grossly intact Neck: supple; no JVD; no lymphadenopathy; trachea midline Skin: warm, dry without signs of tenting; no cyanosis; no rashes, bruising, lesions, or erythema noted; chest wall TTP at the left lateral pectoral muscle; 2 cm dark purple contusion appreciated; CV: RRR; S1/S2 normal; no murmurs/rubs/gallops; pulses intact and symmetric at radial, DP, and PT Lungs: mild respiratory distress; symmetrical chest wall expansion; decreased auscultation in the lower lung avalos bilaterally ABD: Large left-sided hernia in the LLQ; colostomy bag present; soft, NTP; BS present; no rebound/guarding; no rashes or bruising appreciated; positive for left-sided CVA tenderness Back: no signs of bruising or rashes MSK: no tics or fasciculations; +2 pitting edema in the LEs B/L, mildly erythematous Neuro: A&Ox3; normal mood and affect; fluent speech; no focal deficits; sensation grossly intact Results & Data Results & Data Vital Signs (Past 12 Hours) Vital Signs Temp Pulse Resp BP Pulse Ox O2 Del Method O2 Flow Rate 06/14/23 12:39 90 Oxymask 4 06/14/23 12:31 89 L Nasal Cannula 3 06/14/23 11:30 67 21 99/57 L 92 3 06/14/23 11:00 69 24 108/56 L 91 3 06/14/23 10:30 68 21 101/47 L 93 2 06/14/23 10:23 93 Nasal Cannula 2 06/14/23 10:11 70 06/14/23 09:47 36.8 C 72 18 81/49 L 91 Room Air Laboratory Results Abnormal lab results 06/14/23 06/14/23 Range/Units 10:30 Unknown RBC 1.97 L (4.70-6.10) M/uL Hgb 8.2 L (14.0-18.0) g/dl Hct 24.2 L (42.0-52.0) % MCV 122.8 H (80.0-100.0) fL MCH 41.6 H (25.0-34.0) pg RDW Std Deviation 62.6 H (36.4-46.3) fL Plt Count 20 L* (130-400) K/uL Neut # (Auto) 6.75 H (1.40-6.50) K/uL Lymph # (Auto) 0.33 L (1.20-3.40) K/uL Platelet Estimate Decreased L (Normal) PT 14.1 H (9.0-12.0) Seconds INR 1.3 H (0.9-1.1) APTT 36 H (21-31) Seconds Sodium 129 L (136-145) mmol/L Potassium 5.5 H (3.5-5.1) mmol/L Carbon Dioxide 17 L (21-32) mmol/L BUN 59 H (6-23) mg/dl Creatinine 1.60 H (0.6-1.4) mg/dl BUN/Creatinine Ratio 36.9 H (10-20) Glucose 234 H (70-99(Fasting)) mg/dl Total Bilirubin 3.1 H (0.2-1.0) mg/dl Alkaline Phosphatase 133 H (34-104) U/L Total Protein 5.1 L (6.0-8.3) gm/dl Albumin 2.1 L (3.4-5.0) gm/dl Albumin/Globulin Ratio 0.7 L (0.9-2) Urine Appearance Cloudy A (Clear) Urine Nitrite Positive A (Negative) Urine Bilirubin 2+ H (Negative) Ur Leukocyte Esterase Trace H (Negative) Urine WBC (Auto) 5-10 H (0-5) /hpf U Epithel Cells (Auto) >30 H (0-5) /lpf Urine Bacteria (Auto) 1+ H (Negative) Amorphous Sediment Present A (None Prsent) Diagnostic Findings Chest X-Ray 06/14/23 10:35 XR chest 1V portable HISTORY: DYSPNEA COMPARISON: Chest CTA 05/04/2023. FINDINGS: No pneumothorax. The right lung is clear. The heart remains enlarged. There is a moderate left pleural effusions and left basilar densities. There is a right shoulder prosthesis. There is mild central pulmonary vascular congestion without overt edema. IMPRESSION: Moderate left pleural effusion and left basilar densities. This has progressed in the interval. ACT 112: Negative or not required by law. Electronically signed by: Alexander Mcgee M.D. 06/14/2023 11:[address] 06/14/23 10:[address] WITH CONTRAST CT DOSE: 789.31 mGy.cm HISTORY: L pl effusion, fall 5 d ago with bruising L chest TECHNIQUE: Multiaxial CT images of the chest were performed following the intravenous administration of contrast. A dose lowering technique was utilized adhering to the principles of ALARA. COMPARISON: Chest CTA 05/04/2023. FINDINGS: There are multiple old, healed bilateral rib fractures. There is an acute left posterior seventh rib fracture. There are multiple healing left anterior rib fractures. There is a right shoulder prosthesis. Compression deformities within the thoracic and lumbar spine are again noted. These are likely chronic. No pneumothorax. The central airways are patent. Stable 7 mm nodule within the right upper lobe on image 53. Right upper lobe irregular density on image 89 has increased in size. This measures 3.8 cm, previous measuring 2.1 cm. Patchy consolidation within the base the right lower lobe has also progressed. Linear consolidation within the left upper lobe posteriorly and left lower lobe consolidation has progressed. This could be due to compressive atelectasis from the moderate left pleural effusions. Heterogeneous enhancement within the left lung consolidation could represent a superimposed pneumonia. The left pleural effusions does not appear to represent a hemothorax. There is left posterior chest wall soft tissue edema. A cirrhotic liver and splenomegaly persists. There is a small amount of upper abdominal ascites. There is a 14 mm hypervascular focus within the right hepatic dome. Pneumobilia is noted. Normal esophagus. No mediastinal or hilar lymphadenopathy. The main pulmonary arteries are patent. The heart remains enlarged. No pericardial effusion. Anterior diaphragmatic lymphadenopathy persists. Normal caliber thoracic aorta with no evidence for a dissection. Healing right scapular fracture again noted. Increase in size in a 2.1 cm nodule within the superior segment of the right lower lobe on image 101. IMPRESSION: 1. There is an acute left posterior seventh rib fracture. No pneumothorax. 2. Multiple healing left anterior rib fractures. 3. Moderate left pleural effusions. 4. Consolidation within the left upper lobe posteriorly and throughout the majority of the left lower lobe. This favors compressive atelectasis from the pleural effusion. However, there is heterogeneous enhancement within these areas of consolidation. Therefore, superimposed pneumonia is also considered in the differential diagnosis. 5. An irregular consolidation within the periphery of the right upper lobe has increased in size and measures 3.8 cm, previous measuring 2.1. Therefore, this is concerning for progression of the patient's known primary malignancy . 6. Patchy densities at the base the right lower lobe have also progressed. This could represent a pneumonia. 7. Right lung nodules again noted. The 2.1 cm nodule within the right lower lobe has increased in size. These are concerning for metastatic disease. 8. Additional findings as described above. ACT 112: Negative or not required by law. Electronically signed by: Alexander Mcgee M.D. 06/14/2023 12:39 PM Code Status & VTE Plan Code Status Full code VTE Prophylaxis Plan VTE Prophylaxis will be ordered: Yes Supervising Physician Co-Signing Physician Notes Patient seen and examined, chart reviewed, case discussed with Alexander Yancey, PAC and I agree with the assessment and plan as above except as otherwise noted Labs and images reviewed Jordy is an 83-year-old male with past medical history of CAD, [place] s/p PCI 2001, hyperlipidemia, UC s/p ileostomy, CKD 2, ITP, mucinous adenocarcinoma of the lung, primary sclerosing cholangitis who presented with falls, weakness, and progressive shortness of breath. On initial evaluation he appears volume contracted with a FORTUNATO, hyperkalemia, and poor intake for several days. His left-sided effusion has expanded, in the setting of cancer suspect this is malignant. [place] is not consistent with blood, although he is at risk of bleeding with history of ITP and splenic sequestration with chronic platelet levels less than 50 K and 20 K on admission. Given consolidation left upper lobe, cough, and poor appearance reasonable to cover for superimposed pneumonia. Pulmonology consulted, given significant risk comorbidity will target IR guided thoracentesis but this may not be available until Friday. Patient is thro mbocytopenic with a count of 20, has not responded to doptelet in the past and has required transfusions just before prior thoracenteses at [facility]. Reports he has had several treatments to try to raise his platelets medically but none of these have been effective or produced any clinical response/count improvement. At bedside at assessment he is on open easily arousable, answers questions appropriately. Diminished lung sounds in the left lung avalos Hypoxic respiratory failure: With increased left-sided effusion with history of mucinous adenocarcinoma, initially suspected exudative effusion. Covered for potential superimposed pneumonia as above. Supplemental O2 as needed. Pulmonary/IR consulted for thoracentesis. Patient consented for platelets to be administered prior to this. Multiple falls: Some contusions, no tense hematoma. Patient has acute left posterior seventh rib fracture without multilevel acute fracture. Pleural effusion inconsistent with hemothorax on CT with IV contrast Mucinous adenocarcinoma: S/p beam radiation and follows with at [facility] heme-onc. Consult pending tap results. Primary sclerosing cholangitis: Stable transaminases outpatient bilirubin ranging around 1.52, follows as outpatient. CT pending for obstructive pathology/FORTUNATO as noted Hyperkalemia: Patient receiving 2 L crystalloid resuscitation, no distention on bladder scan, CT pending to evaluate for obstructive FORTUNATO. Potassium did uptrend, patient has received calcium gluconate, 5 units of insulin, and sodium CCK. Bicarb infusion pending. BMP trended Addendum CT of the chest with IV contrast showed acute left posterior seventh rib fracture. No active extravasation was noted at time of CT chest. Left pleural effusions did not appear to represent hemothorax at that time. Did have an enlarging left lower lobe consolidation and was covered superduper imposed pneumonia. L effusion without bilateral eff/edema not suspicious for CHF, suspected malignant effusion in the setting of known mucinous adenocarcinoma. Due to elevated creatinine and rising potassium with history of urinary trouble CT was obtained to evaluate for obstruction.. This showed increased density developing within the moderate left pleural effusion favoring a hemothorax given the left posterior rib fracture on prior study. Prior CTA was reviewed and a small focus of active arterial extravasation of the left posterior hemithorax was potentially present. Pt was recommended for xfer for IR embolization via transfer center, case was discussed w/ Dr. Weems with Trauma Surgery. Dr. Danielle as above. Patient was not recommended for transfer for unclear bleed and hemoglobin stability. Did discuss with Dr. Weems personally, that while the CT of the abdomen that raised concern for bleeding was a noncontrast study the bleed that was reviewed by radiology was the CTchest with contrast that showed a small possible area of extravasation. Images including CT chest were pushed for review. Discussed with Dr. Weems, given high risk of arterial embolization would not pursue this unless absolutely required, and would require angiography first and patient has already received a contrast load as above. He is currently hemodynamically stable with an uptrending hemoglobin, will continue to treat with fluids for FORTUNATO, trend H&H and follow at this facility overnight. If he has a downtrending H&H then benefits would exceed the risks of both additional contrast and embolization procedure and would recommend patient be transferred urgently at that time. They will continue to follow, and can update via transfer center if hemoglobin drops overnight. Patient with metabolic acidosis, clinically volume depleted. Additional fluids ordered. Nephrology consulted. 1 bag of isotonic bicarb pending following saline bolus, may give another 1 L bolus if continues to appear volume depleted prior to this. Potassium trended, creatinine is beginning to downtrend. Did receive 1 dose of sodium CZK. BMP every 4 hours. 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
[2023-06-14] MEDS ORDERED: LIDOCAINE 5% 1 PATCH TD STA (15:27)
[2023-06-14] MEDS ORDERED: ACETAMINOPHEN 325 MG TAB PO PRN (15:27)
[2023-06-14] MEDS ORDERED: ALBUTEROL HFA 8 GM INHALER INH PRN (15:27)
[2023-06-14] MEDS ORDERED: MECLIZINE HCL 25 MG TAB PO PRN (15:27)
[2023-06-14] MEDS ORDERED: MELATONIN 3 MG TAB PO PRN (15:27)
[2023-06-14 15:28] LABS: Anion Gap 4 (3-11); Calcium 8.3 mg/dl (8.6-10.3); Carbon Dioxide 16 mmol/L (21-32); Chloride 108 mmol/L (98-107); Sodium 128 mmol/L (136-145)
[2023-06-14 15:33] LABS: Blood Urea Nitrogen 58 mg/dl (6-23); Est GFR (African American) 50.5 ml/min; Est GFR (Non-African American) 43.6 ml/min; Glucose 227 mg/dl (70-99(Fasting))
--- NOTE | 2023-06-14 15:44 | CT Scan Report ---
ABDOMEN AND PELVIS CT WITHOUT CONTRAST CT DOSE: 1308.24 mGy.cm HISTORY: r/o hydro/obstruction. hx obstr ARF TECHNIQUE: Multiaxial CT images of the abdomen and pelvis were performed without contrast. A dose lo wering technique was utilized adhering to the principles of ALARA. COMPARISON STUDY: Abdomen and pelvis CT 04/21/2023. Chest CT 06/14/2023 FINDINGS: The heart remains enlarged. There is increased density within the moderate left pleural eff usion. Therefore, this favors a hemothorax given the left posterior rib fracture seen on the prior st udy. There may be a questionable tiny focus of active arterial extravasation on the left posterior he mithorax on the prior chest CTA. This is best seen on image 115 the prior study. Dense consolidation within the visualized left lower lobe and lingula may represent atelectasis or a pneumonia. No pneumo peritoneum. No pneumatosis. Old compression deformities again noted within the lumbar spine. Old, hea led bilateral rib fractures. No acute fractures identified. Pneumobilia with persistent thickening of the wall of the common bile duct. Cirrhosis with splenomegaly again noted and a small amount of asci debby. This is similar to the prior study. The adrenal glands unremarkable. Residual contrast within th e urinary system from the prior CT examination. No hydronephrosis. No retroperitoneal hematoma or lym phadenopathy. Calcified plaque within the normal caliber abdominal aorta. The pancreas remains atroph ic. Multiple bladder diverticula bladder wall thickening, unchanged. Suboptimal evaluation for bowel pathology due to the lack of intravenous and oral contrast. Mesenteric edema is again noted. This is similar to the prior study. Upper abdominal varicosities persist. Questionable thickening of the stom ach and small bowel could be due to underdistention and the patient's diffuse edematous state. A mild gastroenteritis is not excluded. 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 A few the small bowel loops within the parastomal hernia or fluid filled and borderline distended up to 3 cm. This could represent a partial small bowel obstruction. No evidence for high-grade small bowel obstruction at this time. A small right abdominal hernia which contains a loop of small bowel, unchanged. An indeterminate 1.1 right renal lesion again noted IMPRESSION: 1. There is increased density within the moderate left pleural effusion. Therefore, this favors a hem othorax given the left posterior rib fracture seen on the prior study. There may be a questionable ti ny focus of active arterial extravasation on the left posterior hemithorax on the prior chest CTA as described above. 2. Status post proctocolectomy with left lower quadrant ileostomy and parastomal hernia. A few the lo ops of small bowel within the parastomal hernia are slightly distended and fluid-filled up to 3 cm. T his raises the possibility of a partial small bowel obstruction. No evidence for high-grade bowel obs truction at this time. 3. Mild thickening within the gastric wall and proximal small bowel loops. This could be due to under distention or the patient's diffuse edematous state. A mild gastroenteritis is not excluded. Therefor e. Cirrhosis with splenomegaly and a small amount of ascites. This remains unchanged. 5. An indeterminate 1.1 right renal lesion again noted. 6. Additional findings as described above. ACT 112: Negative or not required by law. Electronically signed by: Alexander Mcgee M.D. 06/14/2023 3:41 PM
[2023-06-14 15:45] LABS: Base Excess ABG -9.9 mEq/L (-9-1.8); HCO3 ABG 15 mmol/L (19-24); Oxygen Saturation ABG 96.8 % (90-95); PCO2 ABG 31 mmHg (35-46); PO2 ABG 74 mmHg (80-95)
[2023-06-14] MEDS ORDERED: ARTIFICIAL TEARS OP PRN (15:52)
[2023-06-14] MEDS ORDERED: STAT IV/IM STA (15:53)
[2023-06-14] MEDS ORDERED: SODIUM ZIRCONIUM CYCLOSILICATE 10 GM PACKET PO ONE (15:56)
[2023-06-14] MEDS ORDERED: AZITHROMYCIN 500 MG in DEXTROSE 5% 250 ML IV SCH (16:00)
[2023-06-14 16:04] LABS: Allen Test Pos (Pos)
[2023-06-14] MEDS ORDERED: guaiFENesin/DEXTROM SYRUP 200MG/20MG 10ML UDC PO PRN (16:05)
[2023-06-14] MEDS ORDERED: CALCIUM GLUCONATE 10% 1,000 MG in SODIUM CHLOR 0.9% MINI-B 50 ML IV ONE (16:15)
[2023-06-14] MEDS ORDERED: TAMSULOSIN HCL 0.4 MG CAP PO SCH (16:30)
[2023-06-14] MEDS ORDERED: INSULIN HUMAN REGULAR PER UNIT 5 UNITS in SYRINGE 4.95 ML IV ONE (16:30)
[2023-06-14] MEDS ORDERED: cefTRIAXone SODIUM 2,000 MG in DEXTROSE 5 % MINI-B 50 ML IV SCH (17:00)
[2023-06-14 18:22] LABS: Hematocrit (blood only) 24.2 % (42.0-52.0); Hemoglobin 8.4 g/dl (14.0-18.0)
[2023-06-14] MEDS ORDERED: SODIUM CHLORIDE 0.9% 1,000 ML IV ONE (18:41)
[2023-06-14] MEDS ORDERED: CARBOHYDRATES FOR HYPOGLYCEMIA PO PRN (18:42)
[2023-06-14] MEDS ORDERED: GLUCAGON FOR INJ 1 MG VIAL SQ PRN (18:42)
[2023-06-14] MEDS ORDERED: GLUCOSE 40% GEL 15 GM TUBE PO PRN (18:42)
[2023-06-14] MEDS ORDERED: DEXTROSE 50% 50 ML SYRINGE IV PRN (18:42)
[2023-06-14] MEDS ORDERED: GLUCOSE 10 TAB/TUBE PO PRN (18:42)
[2023-06-14] MEDS ORDERED: SODIUM BICARBONATE 8.4% 150 MEQ in WATER, STERILE 1,000 ML IV SCH (19:00)
--- NOTE | 2023-06-14 19:58 | Emergency Department Note ---
Impression & Plan Hypoxic respiratory failure, Thrombocytopenia, Left rib fracture, Pleural effusion on left ED Provider Note CHIEF COMPLAINT: Shortness of breath, recent fall HISTORY OF PRESENT ILLNESS: This 83-year-old male past medical history of lung cancer, ulcerative colitis, hypertension, hyperlipidemia, pancytopenia, compression fracture of the thoracic spine, type 2 diabetes, CAD migraine headache, UTIs and TIA patient presents to the emergency department with complaints of worsening shortness of breath and pain on the left side, particularly when sleeping. The patient did have a fall several days ago that was ground-level incident. He is not able to get himself up off the floor however did not seem to have any pain. Ambulance was contacted and they were able to get the patient up off the floor. He did not want to be transported to the hospital at that time. Patient's states he is unable to sleep well due to the discomfort and dyspnea. REVIEW OF SYSTEMS: A review of systems was performed with positives and pertinent negatives listed in the history of present illness. 10 systems were reviewed and are otherwise negative. ALLERGIES: see below MEDICATIONS: see below PMH: see below SOCIAL HISTORY: see below DDx: Rib fracture, pulmonary contusion, congestive heart failure, pneumonia pleural effusion acute coronary syndrome among others. PHYSICAL EXAM: Vital signs reviewed. General: Chronically ill-appearing 83-year-old male, in no significant distress. HEENT: No scleral icterus, PERRLA, neck supple. Atraumatic. Cardiovascular: Regular rate and rhythm, no extra sounds. Pulmonary: Coarse breath sounds to auscultation bilaterally, crackles at the left base, diminished sounds. Normal work of breathing but splinting. Abdomen: Soft, nontender, nondistended, positive bowel sounds. Musculoskeletal: Atraumatic, no peripheral edema. Kyphotic. Tender to palpation over the left chest wall. Neurologic: Patient somnolent but arousable, answers questions appropriately oriented x 3, speech is clear Skin: Warm, dry, no rash EMERGENCY DEPARTMENT COURSE/MDM: This patient was evaluated and appeared to be in no significant distress. He was being supplemented with nasal cannula oxygento maintain oxygen saturations. IV access was obtained and laboratory work was drawn. Chest x-ray was performed and to my interpretation reveals a left pleural effusion. It does seem to be larger than previous. Chest CT was performed in follow-up and reveals a left posterior seventh rib fracture, multiple healing anterior left rib fractures left pleural effusion, right upper lobe consolidation concerning for progression of the patient's primary malignancy. Otherwise refer to final read below. Patient's laboratory work reveals hemoglobin of 8.2 with a platelet count of 20. These are consistent with the patient's previous numbers. Given his oxygen requirement, large left pleural effusion and recent fall with rib fractures, patient was discussed with the hospitalist service who is evaluated the patient for admission and further management. Patient and are aware of the plan and agreed. MONITORING: An order for cardiac monitoring was placed and the patient is noted to be in a beats per minute. RADIOLOGY: Chest x-ray to my interpretation reveals a large left pleural effusion. Otherwise refer to radiology's over read. Chest CT per my and the radiologist's interpretation IMPRESSION: 1. There is an acute left posterior seventh rib fracture. No pneumothorax. 2. Multiple healing left anterior rib fractures. 3. Moderate left pleural effusions. 4. Consolidation within the left upper lobe posteriorly and throughout the majority of the left lower lobe. This favors compressive atelectasis from the pleural effusion. However, there is heterogeneous enhancement within these areas of consolidation. Therefore, superimposed pneumonia is also considered in the differential diagnosis. 5. An irregular consolidation within the periphery of the right upper lobe has increased in size and measures 3.8 cm, previous measuring 2.1. Therefore, this is concerning for progression of the patient's known primary malignancy . 6. Patchy densities at the base the right lower lobe have also progressed. This could represent a pneumonia. 7. Right lung nodules again noted. The 2.1 cm nodule within the right lower lobe has increased in size. These are concerning for metastatic disease. 8. Additional findings as described above. EKG: Sinus rhythm with first-degree AV block at 72 bpm. Low voltage QRS, poor R wave progression. T wave abnormality in the anterior leads. QTc is 422, no PVC, no PAC. When compared to previous dated April 14, 2023, no significant changes been found. DISPOSITION: Admission Past Med/Surg History Medical History Atelectasis Bronchitis Basal cell carcinoma Lung cancer Left lower lobe pulmonary nodule Hypoxia Solitary pulmonary nodule Right tibial fracture Right tibial fracture Abscess of right shoulder (~09/2020) Macular degeneration Hx of vertigo Hx of basal cell carcinoma Benign prostatic hyperplasia with urinary obstruction Hx of ulcerative colitis S/p colectomy- ileostomy 1990 and 1994 History of IBS Hx of deep venous thrombosis LLE "A LONG TIME AGO" 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 Neurogenic bladder NO DOS [employer] 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 No evidence of thrombus on echo May 2022. TIA (transient ischemic attack) TIA vs complex migraine February 2019 Type 2 diabetes mellitus Left lower lobe pneumonia PVCs (premature ventricular contractions) Asymptomatic per patient History of kidney stones High cholesterol HTN (hypertension) CAD (coronary artery disease) STENT X 1 (2001) AT [facility] Sciatica Enlarged prostate Ileostomy in place History of myocardial infarction STENT X 1 (2001) S/P B/L TKA Stable; Has not had to use NTG since stent placement Surgical History History of cystoscopy History of lumbar laminectomy Hx of bilateral cataract extraction History of anesthesia reaction SLOW TO WAKE, BREATHING ISSUES, NAUSEA AND VOMITING History of colonoscopy History of cholecystectomy History of ERCP MULTIPLE History of appendectomy History of exploratory laparotomy X2 "COMMON DUCT RECONSTRUCTION" History of arthroplasty of right shoulder Right TSA= 05/24/16= Grade 1 view, MAC#[address] [facility] History of hand surgery RT/LEFT THUMBS History of total bilateral knee replacement Family History Father Myocardial infarction Family/Other Hypertension Nephrolithiasis Sister FH: ovarian cancer Other Family history of breast cancer in mother Social History Smoking Status: Never smoker Second Hand Exposure: Yes (childhood ); Do You Dip or Chew Tobacco: No; Hx Alcohol Use: Yes Alcohol type: wine Alcohol Intake Frequency: Monthly or Less Hx Substance Use: No Preferred Language: Kosovan Communication Ability: Effective Visual Impairment: Limited Hearing Ability: Use of Hearing Aid 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 Torch Required: No Beliefs That Will Affect Care: None marital status: Current Living Situation: Spouse Current Living Situation Comment: Home current occupational status: retired current occupation: [employer] Feels Safe at Home: Yes Diet Comment: avoid heavy roughage during the past year weight has: remained stable Assistive Devices: Hearing Aid - Bilateral, Walker and Wheelchair Allergies Allergies Allergy/AdvReac Type Severity Reaction Status Date / Time Egg Derived Allergy Intermediate RASH WITH Verified 05/05/23 14:28 LARGE QUANTITIES latex Allergy Intermediate Verified 05/05/23 14:28 metformin Allergy Intermediate GI ISSUES Verified 05/05/23 14:28 pollen extracts Allergy Intermediate ITCHY Verified 05/05/23 14:28 EYES, SNEEZING, CONGESTION benzonatate AdvReac Severe Weakness Verified 05/05/23 14:28 [From Raeann Germain] codeine AdvReac Intermediate N/V, Verified 05/05/23 14:28 HYPOTENSTION fentanyl AdvReac Intermediate EXTREME Verified 05/05/23 14:28 NAUSEA; BP DROPS meperidine AdvReac Intermediate N/V, Verified 05/05/23 14:28 HYPOTENSTION morphine AdvReac Intermediate N/V, Verified 05/05/23 14:28 HYPOTENSTION Flu Virus Vaccine Allergy Intermediate AVOIDS DUE Uncoded 05/05/23 14:28 TO EGG ALLERGY NARCOTICS AdvReac Intermediate N/V, Uncoded 05/05/23 14:28 HYPOTENSTION Home Meds Home Medications Medication Instructions Recorded Confirmed alendronate 70 mg tablet (Fosamax) 70 mg PO WK 09/29/18 06/14/23 allopurinol 300 mg tablet 300 mg PO QAM 09/29/18 06/14/23 finasteride 5 mg tablet (Proscar) 5 mg PO QAM 09/29/18 06/14/23 magnesium oxide 400 mg PO QAM 09/29/18 06/14/23 folic acid 1 mg tablet 1 mg PO DAILY 02/02/19 06/14/23 cranberry 500 mg capsule 500 mg PO QAM 04/02/19 06/14/23 meclizine 25 mg tablet 25 mg PO TID PRN Vertigo 04/02/19 06/14/23 (Medi-Meclizine) loratadine 10 mg tablet (Claritin) 10 mg PO QAM 06/24/19 06/14/23 calcium carbonate 500 mg-vitamin 1 tab PO DAILY 02/09/21 06/14/23 D3 5 mcg (200 unit) tablet (Calcium 500 + D) misoprostol 100 mcg tablet 200 mcg PO QAM 02/09/21 06/14/23 (Cytotec) omega 3-ksd-hxl-fish oil 1,000 mg 1 cap PO DAILY 02/09/21 06/14/23 (120 mg-180 mg) capsule (Fish Oil) alfuzosin 10 mg tablet,extended 10 mg PO QDD 04/30/21 06/14/23 release 24 hr diclofenac sodium 75 mg 75 mg PO QAM 04/30/21 06/14/23 tablet,delayed release omeprazole 20 mg capsule,delayed 20 mg PO DAILY 04/30/21 06/14/23 release Bifidobacterium infantis 4 mg 4 mg PO DAILY 09/04/22 06/14/23 capsule (Align) Prevagen 1 tab PO QAM 09/04/22 06/14/23 acetaminophen 500 mg tablet 500 - 1,000 mg PO Q6H PRN Pain 09/04/22 06/14/23 (Tylenol Extra Strength) omega-3s 667 jb-fzx-rek-fish 3 cap PO DAILY 10/07/22 06/14/23 oil-vitamin D3 250 unit capsule (Dry Eye [place] Benefits) propylene glycol-glycerin 0.6 2 drp ophthalmic (eye) BID 10/07/22 06/14/23 %-0.6 % eye drops in a dropperette (Soothe Lubricant) aspirin 81 mg tablet,delayed 81 mg PO DAILY 11/18/22 06/14/23 release melatonin 3 mg tablet 5 mg PO HS PRN SLEEP 11/18/22 06/14/23 metoprolol tartrate 50 mg tablet 50 mg PO .MIDDAY 11/18/22 06/14/23 ursodiol 300 mg capsule 900 mg PO BID 11/18/22 06/14/23 rosuvastatin 10 mg tablet 5 mg PO HS 02/20/23 06/14/23 albuterol sulfate 90 mcg/actuation 2 puff inhalation Q6H PRN Other 05/05/23 06/14/23 aerosol inhaler dextromethorphan-guaifenesin 10 10 ml PO Q4H PRN Cough 05/05/23 06/14/23 mg-100 mg/5 mL oral liquid (Safe Tussin DM) triamcinolone acetonide 0.1 % 1 applic topical DAILY PRN Other 06/14/23 06/14/23 topical ointment Previous Rx's Medication Instructions Recorded metoprolol tartrate 25 mg tablet 75 mg (3 x 25 mg) PO QPM #90 tabs 08/10/21 Results & Data (ED) Vital Signs Vital Signs - 24 hr 06/14/23 09:47 06/14/23 10:00 06/14/23 10:11 Temperature 36.8 C Temperature Source Temporal Artery Scan Pulse Rate 72 70 Pulse Rate from SpO2 Sensor Respiratory Rate 18 Respiratory Effort / Characteristics Spontaneous Blood Pressure 81/49 L Blood Pressure Mean 59 Pulse Oximetry 91 Oxygen Delivery Method Room Air Oxygen Flow Rate Sepsis Recent Fever Within 48 Hours No Sepsis New/Unexplained Change in Mental Status No Sepsis Action Taken by Nursing No Action Required Oxygen Flow Rate - Titration Pulse Oximetry Post Tiitration 06/14/23 10:23 06/14/23 10:30 06/14/23 11:00 Temperature Temperature Source Pulse Rate 68 69 Pulse Rate from SpO2 Sensor 68 69 Respiratory Rate 21 24 Respiratory Effort / Characteristics Blood Pressure 101/47 L 108/56 L Blood Pressure Mean 65 73 Pulse Oximetry 93 93 91 Oxygen Delivery Method Nasal Cannula Oxygen Flow Rate 2 2 3 Sepsis Recent Fever Within 48 Hours Sepsis New/Unexplained Change in Mental Status Sepsis Action Taken by Nursing Oxygen Flow Rate - Titration Pulse Oximetry Post Tiitration 06/14/23 11:30 06/14/23 12:28 06/14/23 12:31 Temperature Temperature Source Pulse Rate 67 71 Pulse Rate from SpO2 Sensor 67 68 Respiratory Rate 21 22 Respiratory Effort / Characteristics Blood Pressure 99/57 L 107/53 L Blood Pressure Mean 71 71 Pulse Oximetry 92 90 89 L Oxygen Delivery Method Nasal Cannula Oxygen Flow Rate 3 3 Sepsis Recent Fever Within 48 Hours Sepsis New/Unexplained Change in Mental Status Sepsis Action Taken by Nursing Oxygen Flow Rate - Titration 4 Pulse Oximetry Post Tiitration 91 06/14/23 12:39 06/14/23 13:00 06/14/23 13:30 Temperature Temperature Source Pulse Rate 74 74 Pulse Rate from SpO2 Sensor 74 66 Respiratory Rate 24 24 Respiratory Effort / Characteristics Blood Pressure 106/46 L 105/62 Blood Pressure Mean 66 76 Pulse Oximetry 90 94 94 Oxygen Delivery Method Oxymask Oxymask Oxymask Oxygen Flow Rate 4 5 Sepsis Recent Fever Within 48 Hours Sepsis New/Unexplained Change in Mental Status Sepsis Action Taken by Nursing Oxygen Flow Rate - Titration 5 Pulse Oximetry Post Tiitration 92 Home Medications Current Medication List: was personally reviewed by me Laboratory Data Attestation: I reviewed the patient's lab results. 06/14/23 20:23 06/14/23 20:23 Lab Results 06/14/23 Range/Units 10:30 WBC 7.43 (4.8-10.8) K/ul RBC 1.97 L (4.70-6.10) M/uL Hgb 8.2 L (14.0-18.0) g/dl Hct 24.2 L (42.0-52.0) % MCV 122.8 H (80.0-100.0) fL MCH 41.6 H (25.0-34.0) pg MCHC 33.9 (32.0-36.0) g/dL RDW Std Deviation 62.6 H (36.4-46.3) fL RDW Coeff of Chani 14.0 (11.5-14.5) % Plt Count 20 L* (130-400) K/uL Immature Gran % (Auto) 0.5 % Neut % (Auto) 91.0 % Lymph % (Auto) 4.4 % [place] % (Auto) 3.5 % Eos % (Auto) 0.5 % Baso % (Auto) 0.1 % Neut # (Auto) 6.75 H (1.40-6.50) K/uL Lymph # (Auto) 0.33 L (1.20-3.40) K/uL [place] # (Auto) 0.26 (0.11-0.59) K/uL Eos # (Auto) 0.04 (0.00-0.50) K/uL Baso # (Auto) 0.01 (0.00-0.20) K/uL Immature Gran # (Auto) 0.04 (0.01-0.20) K/uL Dohle Bodies 1+ Platelet Estimate Decreased L (Normal) Polychromasia 1+ Macrocytosis Present Tear Drop Cells 2+ PT 14.1 H (9.0-12.0) Seconds INR 1.3 H (0.9-1.1) APTT 36 H (21-31) Seconds PTT Ratio 1.3 Sodium 129 L (136-145) mmol/L Potassium 5.5 H (3.5-5.1) mmol/L Chloride 107 (98-107) mmol/L Carbon Dioxide 17 L (21-32) mmol/L Anion Gap 5 (3-11) BUN 59 H (6-23) mg/dl Creatinine 1.60 H (0.6-1.4) mg/dl Est Cr Clr Drug Dosing Not Reportable Est GFR ( Amer) 44.9 ml/min Est GFR (Non-Af Amer) 38.7 ml/min BUN/Creatinine Ratio 36.9 H (10-20) Glucose 234 H (70-99(Fasting)) mg/dl Calcium 8.7 (8.6-10.3) mg/dl Magnesium 1.7 (1.7-2.4) mg/dl Total Bilirubin 3.1 H (0.2-1.0) mg/dl AST 22 (13-39) U/L ALT 19 (7-52) U/L Alkaline Phosphatase 133 H (34-104) U/L Troponin I High Sens 5.7 (0-20) pg/ml Total Protein 5.1 L (6.0-8.3) gm/dl Albumin 2.1 L (3.4-5.0) gm/dl Globulin 3.0 (2.5-4.0) gm/dl Albumin/Globulin Ratio 0.7 L (0.9-2) Adenovirus (PCR) Not Detected (NotDetected) B. pertussis DNA (PCR) Not Detected (NotDetected) B.parapertussis DNA PCR Not Detected (NotDetected) C. pneumoniae DNA (PCR) Not Detected (NotDetected) Coronavirus OC43 (PCR) Not Detected (NotDetected) Coronavirus HKU1 (PCR) Not Detected (NotDetected) Coronavirus 229E (PCR) Not Detected (NotDetected) SARS-CoV-2 (PCR) Not Detected (NotDetected) Coronavirus NL63 (PCR) Not Detected (NotDetected) Human Metapneumovir PCR Not Detected (NotDetected) Influenza Type A (PCR) Not Detected (NotDetected) Influenza Type B (PCR) Not Detected (NotDetected) M. pneumoniae (PCR) Not Detected (NotDetected) Parainfluenza 1 (PCR) Not Detected (NotDetected) Parainfluenza 2 (PCR) Not Detected (NotDetected) Parainfluenza 3 (PCR) Not Detected (NotDetected) Parainfluenza 4 (PCR) Not Detected (NotDetected) RSV (PCR) Not Detected (NotDetected) Entero/Rhino (PCR) Not Detected (NotDetected) Administered Medications Discontinued Medications Fentanyl Citrate (Fentanyl Citrate 2,500 Mcg/250 Ml Bag) Confirm Administered Dose 2,500 mcg IV .STK-MED ONE Stop: 06/14/23 21:02 Last Admin: 06/14/23 22:34 Dose: Not Given Documented By: VIKKI Fentanyl Citrate (Fentanyl Citrate Pf 100 Mcg/2 Ml Vial) 25 mcg IV Q15M [facility] Stop: 06/28/23 21:59 Last Admin: 06/14/23 23:05 Dose: 25 mcg Documented By: VIKKI Sodium Chloride (Nss) 500 mls @ 999 mls/hr IV .Q31M ONE Stop: 06/14/23 10:42 Last Infusion: 06/14/23 11:26 Dose: Infused Documented By: Admin: 06/14/23 10:36 Dose: 999 mls/hr Documented By: SALLY Ceftriaxone Sodium 2,000 mg/ (Dextrose) 50 mls @ 100 mls/hr IV Q24H [facility]; Protocol Stop: 06/21/23 16:59 Last Infusion: 06/14/23 17:44 Dose: Infused Documented By: Admin: 06/14/23 17:10 Dose: 100 mls/hr Documented By: CHI Azithromycin 500 mg/ Dextrose 255 mls @ 127.5 mls/hr IV Q24H [facility] Stop: 06/17/23 15:59 Last Infusion: 06/14/23 20:00 Dose: Infused Documented By: Admin: 06/14/23 17:19 Dose: 127.5 mls/hr Documented By: CHI Calcium Gluconate 1,000 mg/ (Sodium Chloride) 60 mls @ 240 mls/hr IV 1615 ONE Stop: 06/14/23 16:29 Last Infusion: 06/14/23 17:26 Dose: Infused Documented By: Admin: 06/14/23 17:02 Dose: 240 mls/hr Documented By: CHI Insulin Human Regular 5 units/ (Syringe) 5 mls @ 10 mls/min IV TODAY@1630 ONE Stop: 06/14/23 16:31 Last Admin: 06/14/23 17:01 Dose: 10 mls/min Documented By: CHI Co-signed By: MATTHEW Sodium Chloride (Nss) 500 mls @ 999 mls/hr IV .Q31M ONE Stop: 06/14/23 16:26 Last Infusion: 06/14/23 17:51 Dose: Infused Documented By: Admin: 06/14/23 17:16 Dose: 999 mls/hr Documented By: CHI Sodium Chloride (Nss) 1,000 mls @ 999 mls/hr IV .Q1H1M ONE Stop: 06/14/23 19:41 Last Infusion: 06/14/23 20:16 Dose: Infused Documented By: Admin: 06/14/23 19:09 Dose: 999 mls/hr Documented By: MELODY Desmopressin Acetate 25 mcg/ (Sodium Chloride) 56.25 mls @ 100 mls/hr IV 2100 ONE Stop: 06/14/23 21:33 Last Admin: 06/14/23 22:32 Dose: Not Given Documented By: VIKKI Tranexamic Acid (Tranexamic Acid / 0.7% Nacl) 1,000 mg in 100 mls @ 600 mls/hr IV 2100 ONE Stop: 06/14/23 21:09 Last Admin: 06/14/23 22:36 Dose: Not Given Documented By: VIKKI Vancomycin HCl 1,750 mg/ (Sodium Chloride) 535 mls @ 200 mls/hr IV NOW ONE Stop: 06/15/23 00:55 Last Admin: 06/14/23 22:28 Dose: 200 mls/hr Documented By: TAMARA Acetaminophen (Ofirmev) 1,000 mg in 100 mls @ 400 mls/hr IV NOW STA Stop: 06/14/23 22:41 Last Admin: 06/14/23 22:53 Dose: 400 mls/hr Documented By: VIKKI Piperacillin Sod/Tazobactam (Sod 4.5 gm/ Dextrose) 100 mls @ 200 mls/hr IV NOW ONE; Protocol Stop: 06/14/23 23:29 Last Admin: 06/14/23 22:59 Dose: 200 mls/hr Documented By: VIKKI Ioversol (Optiray 320 500ml) 92 ml IV ONCE ONE Stop: 06/14/23 11:57 Last Admin: 06/14/23 11:58 Dose: 92 ml Documented By: RAY Lidocaine (Lidocaine 5% 1 Patch) 1 patch TD NOW STA Stop: 06/14/23 15:28 Last Admin: 06/14/23 17:04 Dose: 1 patch Documented By: CHI Corbin (Remove Lidoderm Patch) 1 each N/A DAILY@2100 [facility] Stop: 07/14/23 20:59 Last Admin: 06/14/23 22:53 Dose: 1 each Documented By: VIKKI Miscellaneous (Rapid Sequence Induction Bag) Confirm Administered Dose 1 each N/A .STK-MED ONE Stop: 06/14/23 20:49 Last Admin: 06/14/23 22:21 Dose: Not Given Documented By: TLM Norepinephrine Bitartrate (Norepinephrine/D5w 4 Mg/250 Ml) Confirm Administered Dose 4 mg IV .STK-MED ONE Stop: 06/14/23 21:05 Last Admin: 06/14/23 22:34 Dose: Not Given Documented By: VIKKI Propofol (Propofol Iv Emulsion 10 Mg/Ml 100 Ml Vial) Confirm Administered Dose 1,000 mg IV .STK-MED ONE Stop: 06/14/23 21:03 Last Admin: 06/14/23 22:34 Dose: Not Given Documented By: VIKKI Rosuvastatin Calcium (Rosuvastatin Calcium 5 Mg Tab) 5 mg PO HS [facility] Stop: 07/14/23 20:59 Last Admin: 06/14/23 22:53 Dose: Not Given Documented By: VIKKI Sodium Zirconium Cyclosilicate (Sodium Zirconium Cyclosilicate 10 Gm Packet) 10 gm PO ONE ONE Stop: 06/14/23 15:57 Last Admin: 06/14/23 17:17 Dose: Not Given Documented By: CHI Tamsulosin HCl (Tamsulosin Hcl 0.4 Mg Cap) 0.4 mg PO QDD [facility] Stop: 07/14/23 16:29 Last Admin: 06/14/23 17:17 Dose: Not Given Documented By: CHI Ursodiol (Ursodiol 300 Mg Cap) 900 mg PO BID [facility] Stop: 07/14/23 20:59 Last Admin: 06/14/23 22:54 Dose: Not Given Documented By: VIKKI Imaging Data Radiologist's Impression: Chest X-Ray 06/14/23 10:35 XR chest 1V portable HISTORY: DYSPNEA COMPARISON: Chest CTA 05/04/2023. FINDINGS: No pneumothorax. The right lung is clear. The heart remains enlarged. There is a moderate left pleural effusions and left basilar densities. There is a right shoulder prosthesis. There is mild central pulmonary vascular congestion without overt edema. IMPRESSION: Moderate left pleural effusion and left basilar densities. This has progressed in the interval. ACT 112: Negative or not required by law. Electronically signed by: Alexander Mcgee M.D. 06/14/2023 11:[address] 06/14/23 10:[address] WITH CONTRAST CT DOSE: 789.31 mGy.cm HISTORY: L pl effusion, fall 5 d ago with bruising L chest TECHNIQUE: Multiaxial CT images of the chest were performed following the intravenous administration of contrast. A dose lowering technique was utilized adhering to the principles of ALARA. COMPARISON: Chest CTA 05/04/2023. FINDINGS: There are multiple old, healed bilateral rib fractures. There is an acute left posterior seventh rib fracture. There are multiple healing left anterior rib fractures. There is a right shoulder prosthesis. Compression deformities within the thoracic and lumbar spine are again noted. These are likely chronic. No pneumothorax. The central airways are patent. Stable 7 mm nodule within the right upper lobe on image 53. Right upper lobe irregular density on image 89 has increased in size. This measures 3.8 cm, previous measuring 2.1 cm. Patchy consolidation within the base the right lower lobe has also progressed. Linear consolidation within the left upper lobe posteriorly and left lower lobe consolidation has progressed. This could be due to compressive atelectasis from the moderate left pleural effusions. Heterogeneous enhancement within the left lung consolidation could represent a superimposed pneumonia. The left pleural effusions does not appear to represent a hemothorax. There is left posterior chest wall soft tissue edema. A cirrhotic liver and splenomegaly persists. There is a small amount of upper abdominal ascites. There is a 14 mm hypervascular focus within the right hepatic dome. Pneumobilia is noted. Normal esophagus. No mediastinal or hilar lymphadenopathy. The main pulmonary arteries are patent. The heart remains enlarged. No pericardial effusion. Anterior diaphragmatic lymphadenopathy persists. Normal caliber thoracic aorta with no evidence for a dissection. Healing right scapular fracture again noted. Increase in size in a 2.1 cm nodule within the superior segment of the right lower lobe on image 101. IMPRESSION: 1. There is an acute left posterior seventh rib fracture. No pneumothorax. 2. Multiple healing left anterior rib fractures. 3. Moderate left pleural effusions. 4. Consolidation within the left upper lobe posteriorly and throughout the majority of the left lower lobe. This favors compressive atelectasis from the pleural effusion. However, there is heterogeneous enhancement within these areas of consolidation. Therefore, superimposed pneumonia is also considered in the differential diagnosis. 5. An irregular consolidation within the periphery of the right upper lobe has increased in size and measures 3.8 cm, previous measuring 2.1. Therefore, this is concerning for progression of the patient's known primary malignancy . 6. Patchy densities at the base the right lower lobe have also progressed. This could represent a pneumonia. 7. Right lung nodules again noted. The 2.1 cm nodule within the right lower lobe has increased in size. These are concerning for metastatic disease. 8. Additional findings as described above. ACT 112: Negative or not required by law. Electronically signed by: Alexander Mcgee M.D. 06/14/2023 12:39 PM Abdomen/Pelvis CT 06/14/23 13:[address] WITHOUT CONTRAST CT DOSE: 1308.24 mGy.cm HISTORY: r/o hydro/obstruction. hx obstr ARF TECHNIQUE: Multiaxial CT images of the abdomen and pelvis were performed without contrast. A dose lowering technique was utilized adhering to the principles of [employer]ARA. COMPARISON STUDY: Abdomen and pelvis CT 04/21/2023. Chest CT 06/14/2023 FINDINGS: The heart remains enlarged. There is increased density within the moderate left pleural effusion. Therefore, this favors a hemothorax given the left posterior rib fracture seen on the prior study. There may be a questionable tiny focus of active arterial extravasation on the left posterior hemithorax on the prior chest CTA. This is best seen on image 115 the prior study. Dense consolidation within the visualized left lower lobe and lingula may represent atelectasis or a pneumonia. No pneumoperitoneum. No pneumatosis. Old compression deformities again noted within the lumbar spine. Old, healed bilateral rib fractures. No acute fractures identified. Pneumobilia with persistent thickening of the wall of the common bile duct. Cirrhosis with splenomegaly again noted and a small amount of ascites. This is similar to the prior study. The adrenal glands unremarkable. Residual contrast within the urinary system from the prior CT examination. No hydronephrosis. No retroperitoneal hematoma or lymphadenopathy. Calcified plaque within the normal caliber abdominal aorta. The pancreas remains atrophic. Multiple bladder diverticula bladder wall thickening, unchanged. Suboptimal evaluation for bowel pathology due to the lack of intravenous and oral contrast. Mesenteric edema is again noted. This is similar to the prior study. Upper abdominal varicosities persist. Questionable thickening of the stomach and small bowel could be due to underdistention and the patient's diffuse edematous state. A mild gastroenteritis is not excluded. 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 A few the small bowel loops within the parastomal hernia or fluid filled and borderline distended up to 3 cm. This could represent a partial small bowel obstruction. No evidence for high-grade small bowel obstruction at this time. A small right abdominal hernia which contains a loop of small bowel, unchanged. An indeterminate 1.1 right renal lesion again noted IMPRESSION: 1. There is increased density within the moderate left pleural effusion. Therefore, this favors a hemothorax given the left posterior rib fracture seen on the prior study. There may be a questionable tiny focus of active arterial extravasation on the left posterior hemithorax on the prior chest CTA as described above. 2. Status post proctocolectomy with left lower quadrant ileostomy and parastomal hernia. A few the loops of small bowel within the parastomal hernia are slightly distended and fluid-filled up to 3 cm. This raises the possibility of a partial small bowel obstruction. No evidence for high-grade bowel obstruction at this time. 3. Mild thickening within the gastric wall and proximal small bowel loops. This could be due to underdistention or the patient's diffuse edematous state. A mild gastroenteritis is not excluded. Therefore. Cirrhosis with splenomegaly and a small amount of ascites. This remains unchanged. 5. An indeterminate 1.1 right renal lesion again noted. 6. Additional findings as described above. ACT 112: Negative or not required by law. Electronically signed by: Alexander Mcgee M.D. 06/14/2023 3:41 PM Discharge Plan Visit Data Chief Complaint: Shortness of Breath/Dyspnea Stated Complaint: SHORTNESS OF BREATH, FALL ED Provider: Faina Obrien Discharge Problem: Hypoxic respiratory failure, Thrombocytopenia, Left rib fracture, Pleural effusion on left Patient Disposition: Admitted As Inpatient Discharge Instructions Interventions: ED Discharge Assessment Last Done: 06/14/23 15:01 Discharge Problem: Hypoxic respiratory failure Qualifiers: Chronicity: acute Qualified Code(s): J96.01 - Acute respiratory failure with hypoxia Left rib fracture Qualifiers: Encounter type: initial encounter Rib fracture type: single rib Fracture type: closed Qualified Code(s): S22.32XA - Fracture of one rib, left side, initial encounter for closed fracture
[2023-06-14 20:45] LABS: Base Excess ABG -9.2 mEq/L (-9-1.8); HCO3 ABG 15 mmol/L (19-24); Oxygen Saturation ABG 93.7 % (90-95); PCO2 ABG 28 mmHg (35-46); PO2 ABG 65 mmHg (80-95); pH ABG 7.34 (7.35-7.45)
[2023-06-14] MEDS ORDERED: RAPID SEQUENCE INDUCTION BAG ONE (20:48)
--- NOTE | 2023-06-14 20:48 | Critical Care Consultation ---
Date of Consultation June 14, 2023 Assessment & Plan (1) Hypotension: (2) Pneumonia: (3) FORTUNATO (acute kidney injury): (4) Pleural effusion: (5) Multiple falls: (6) Chronic ITP (idiopathic thrombocytopenia): (7) Lung cancer: Plan Reason Critically Ill: 83 YOM with history of ITP, lung cancer, with reported fall onto walker earlier today with rib fracture and concern for hemothorax with compressive atelectasis. ER note is not complete at this time for review but appears he had CXR and chest CT on arrival to [facility], further trauma screening was performed later in day with abdomen/pelvis ct scan- which favored hemothorax at that time and with small amount of ascites. Patient arrived to ICU for worsening in hemodyanmics, respiratory efforts and tachycardia. S/P Seldinger chest tube placement for free flowing effusion that was improved post drainage vial bedside POCUS. Neuro - Dementia CAM ICU: negative - stable no acute process at thist time- awake, alert and oriented without focal deficits - if any change in neurological status would repeat head ct non con to eval for any DASH Cardiac - hypotnesion, shock undifferentiated, Hx HTN, HFpEF - His hypotension/shock is multifactorial at this time with likely sepsis leading pathology from pulmonary/urinary source - s/p chest tube placement, no current hemothorax, hgb levels stable, and hemodynamics improved- at this time this lessens possibility of hemorrhage - if continues to downtrend will repeat images with contrast - transfuse if needed for hemodynamics support or hgb <8 - with pulmonary edema on exam could consider diuresing with addition of v asopressor agents - follow Respiratory - COPD, primary lung cancer, pleural effusion with compressive atelectasis vs. pneumonia - Will treat for pneumonia - Rocephin and will add Vancomycin with MRSA positive - Wean oxygen as able - Pleural effusion improved post chest tube- likely transudative - will send for - PH and glucose initally - adjust antibiotics based on PH if parapneumonic is more likely - CT chest tube to -20cm suction GI - UC with history of ileostomy, cirrhosis - cirrhosis with splenomegaly- cirrhosis noted by imaging, has not had formal GI evaluation or workup that is available for my review - currently with small amount of ascites, could consider diagnostic tap - however is on Rocephin at this time - hyponatremia noted likely component of volume status - diurese as hemodynamics allow RENAL/LYTES - 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 Improved following volume - Metabolic Acidosis with appropriate respiratory compensation - likely secondary to septic shock - Continue supportive efforts - adequate urine output - As above ENDO - No acute needs at this time - ICU hyperglycemic protocol HEME - ITP, chronic anemia - per record review- ITP has been very refractory to variable treatments - DDAVP given, TXA held as not available prior to procedure, received 1 unit of platelets - Follow ID - Pneumonia - likely source of infection at this time - probably secondary to decompressive atelectasis post fall or primary - Change to Zosyn and Vancomycin LINES/IV ACCESS - PIV x3, Dos Santos, Chest tube Continue use of these lines DVT PROPHYLAXIS - SCDS DISPO: ACLS transport to [facility] pending I have personally spent 50 minutes of critical care time in the direct management of this patient. This is a life/limb threatening event. This includes time spent evaluating patient, direct bedside care, chart review, placing orders, interpretation of diagnostic studies, discussion with consultants, patient, and family members, as well as other required patient management activities. This time is exclusive of all separately billable procedures, and teaching time and separate from and in addition to any other critical care service time. Thank you for allowing us to participate in the care of this patient. Please refer to my attending physician's documentation for any further recommendations. History of Present Illness Reason for Consultation: expanding hemothorax Requesting Physician: Bello Rodriguez MD Attending Physician: Bello Rodriguez MD History of Present Illness 83 YOM with medical history of ITP, lung cancer, BPH, CKD III, UC s/o ileostomy, HTN, CAD. Patient is s/p fall at home onto his rocker in the EMD the patient did have CXR and CT scan performed, initial impression was 7th rib fracture with plueral effusion - however when overhead later during CT abdomen and pelvis, it was felt more that this was a hemothorax. Patient case was reportedly discussed with [facility] [place] and IR images were reviewed and transfer was declined. Later in the evening the patient had clinical detoriation with increasing oxygenation needs to 10L Oxymax, hypoxia, hypotension and tachycardia. There was concern for increasing hemothorax/pneumothorax. Patient already had platelet transfusion given, he was given DDAVP and TXA. Patient was transferred to the ICU for evaluation with plans for airway management if needed and Seldinger technique chest tube insertion. Patient arrived tachypneic but oxygenating well. ICU attending was at bedside with me on arrival to the ICU. The patient was noted to have crepitus to left chest wall with some bruising, he was having pain around his scapula as well as left lower chest wall. Bedside POCUS was performed noting more of a free floating effusion with compression of lung. At this time it Thal quick was set up and initial seeker returned pleural fluid with no blood. See separate procedure note. Following the 20F chest tube insertion, the patient respiratory status improved, 700ml approx was drained, fluid was sent for glucose and PH. Respiratory efforts improved and he is currently with RR down 2o 16, Spo2 96%. Remains tachycardic secondary to likely pain as well as some pulmonary edema noted on post procedural CXR. Patient is accepted at [facility] awaiting transport. Will have primary team update transfer center. CODE: FULL Allergies Allergy/AdvReac Type Severity Reaction Status Date / Time Egg Derived Allergy Intermediate RASH WITH Verified 05/05/23 14:28 LARGE QUANTITIES latex Allergy Intermediate Verified 05/05/23 14:28 metformin Allergy Intermediate GI ISSUES Verified 05/05/23 14:28 pollen extracts Allergy Intermediate ITCHY Verified 05/05/23 14:28 EYES, SNEEZING, CONGESTION benzonatate AdvReac Severe Weakness Verified 05/05/23 14:28 [From Raeann Germain] codeine AdvReac Intermediate N/V, Verified 05/05/23 14:28 HYPOTENSTION fentanyl AdvReac Intermediate EXTREME Verified 05/05/23 14:28 NAUSEA; BP DROPS meperidine AdvReac Intermediate N/V, Verified 05/05/23 14:28 HYPOTENSTION morphine AdvReac Intermediate N/V, Verified 05/05/23 14:28 HYPOTENSTION Flu Virus Vaccine Allergy Intermediate AVOIDS DUE Uncoded 05/05/23 14:28 TO EGG ALLERGY NARCOTICS AdvReac Intermediate N/V, Uncoded 05/05/23 14:28 HYPOTENSTION Home Medications Medication Instructions Recorded Confirmed Type alendronate 70 mg tablet (Fosamax) 70 mg PO WK 09/29/18 06/14/23 History allopurinol 300 mg tablet 300 mg PO QAM 09/29/18 06/14/23 History finasteride 5 mg tablet (Proscar) 5 mg PO QAM 09/29/18 06/14/23 History magnesium oxide 400 mg PO QAM 09/29/18 06/14/23 History folic acid 1 mg tablet 1 mg PO DAILY 02/02/19 06/14/23 History cranberry 500 mg capsule 500 mg PO QAM 04/02/19 06/14/23 History meclizine 25 mg tablet 25 mg PO TID PRN Vertigo 04/02/19 06/14/23 History (Medi-Meclizine) loratadine 10 mg tablet (Claritin) 10 mg PO QAM 06/24/19 06/14/23 History calcium carbonate 500 mg-vitamin 1 tab PO DAILY 02/09/21 06/14/23 History D3 5 mcg (200 unit) tablet (Calcium 500 + D) misoprostol 100 mcg tablet 200 mcg PO QAM 02/09/21 06/14/23 History (Cytotec) omega 6-wta-qrg-fish oil 1,000 mg 1 cap PO DAILY 02/09/21 06/14/23 History (120 mg-180 mg) capsule (Fish Oil) metoprolol tartrate 25 mg tablet 75 mg (3 x 25 mg) PO QPM #90 tabs 02/13/21 06/14/23 Rx alfuzosin 10 mg tablet,extended 10 mg PO QDD 04/30/21 06/14/23 History release 24 hr diclofenac sodium 75 mg 75 mg PO QAM 04/30/21 06/14/23 History tablet,delayed release omeprazole 20 mg capsule,delayed 20 mg PO DAILY 04/30/21 06/14/23 History release Bifidobacterium infantis 4 mg 4 mg PO DAILY 09/04/22 06/14/23 History capsule (Align) Prevagen 1 tab PO QAM 09/04/22 06/14/23 History acetaminophen 500 mg tablet 500 - 1,000 mg PO Q6H PRN Pain 09/04/22 06/14/23 History (Tylenol Extra Strength) omega-3s 667 gy-foj-wzz-fish 3 cap PO DAILY 10/07/22 06/14/23 History oil-vitamin D3 250 unit capsule (Dry Eye [place] Benefits) propylene glycol-glycerin 0.6 2 drp ophthalmic (eye) BID 10/07/22 06/14/23 History %-0.6 % eye drops in a dropperette (Soothe Lubricant) aspirin 81 mg tablet,delayed 81 mg PO DAILY 11/18/22 06/14/23 History release melatonin 3 mg tablet 5 mg PO HS PRN SLEEP 11/18/22 06/14/23 History metoprolol tartrate 50 mg tablet 50 mg PO .MIDDAY 11/18/22 06/14/23 History ursodiol 300 mg capsule 900 mg PO BID 11/18/22 06/14/23 History rosuvastatin 10 mg tablet 5 mg PO HS 02/20/23 06/14/23 History albuterol sulfate 90 mcg/actuation 2 puff inhalation Q6H PRN Other 05/05/23 06/14/23 History aerosol inhaler dextromethorphan-guaifenesin 10 10 ml PO Q4H PRN Cough 05/05/23 06/14/23 History mg-100 mg/5 mL oral liquid (Safe Tussin DM) triamcinolone acetonide 0.1 % 1 applic topical DAILY PRN Other 06/14/23 06/14/23 History topical ointment Patient History Medical History Atelectasis Bronchitis Basal cell carcinoma Lung cancer Left lower lobe pulmonary nodule Hypoxia Solitary pulmonary nodule Right tibial fracture Right tibial fracture Abscess of right shoulder (~09/2020) Macular degeneration Hx of vertigo Hx of basal cell carcinoma Benign prostatic hyperplasia with urinary obstruction Hx of ulcerative colitis S/p colectomy- ileostomy 1990 and 1994 History of IBS Hx of deep venous thrombosis LLE "A LONG TIME AGO" 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 Neurogenic bladder NO DOS SANTOS CATHETER 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 No evidence of thrombus on echo May 2022. TIA (transient ischemic attack) TIA vs complex migraine February 2019 Type 2 diabetes mellitus Left lower lobe pneumonia PVCs (premature ventricular contractions) Asymptomatic per patient History of kidney stones High cholesterol HTN (hypertension) CAD (coronary artery disease) STENT X 1 (2001) AT [facility] Sciatica Enlarged prostate Ileostomy in place History of myocardial infarction STENT X 1 (2001) S/P B/L TKA Stable; Has not had to use NTG since stent placement Surgical History History of cystoscopy History of lumbar laminectomy Hx of bilateral cataract extraction History of anesthesia reaction SLOW TO WAKE, BREATHING ISSUES, NAUSEA AND VOMITING History of colonoscopy History of cholecystectomy History of ERCP MULTIPLE History of appendectomy History of exploratory laparotomy X2 "COMMON DUCT RECONSTRUCTION" History of arthroplasty of right shoulder Right TSA= 05/24/16= Grade 1 view, MAC#4 at [facility] History of hand surgery RT/LEFT THUMBS History of total bilateral knee replacement Family History Father Myocardial infarction Family/Other Hypertension Nephrolithiasis Sister FH: ovarian cancer Other Family history of breast cancer in mother Social History Smoking Status: Never smoker Second Hand Exposure: Yes (childhood ); Do You Dip or Chew Tobacco: No; Hx Alcohol Use: Yes Alcohol type: wine Alcohol Intake Frequency: Monthly or Less Hx Substance Use: No Preferred Language: Lithuanian Communication Ability: Effective Visual Impairment: Limited Hearing Ability: Use of Hearing Aid 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 History Required: No Beliefs That Will Affect Care: None marital status: Current Living Situation: Spouse Current Living Situation Comment: Home current occupational status: retired current occupation: [employer] Other Information That Helps Us Care for You: No Feels Safe at Home: Yes Safety Concerns: Feels Safe At This Time Diet Comment: avoid heavy roughage during the past year weight has: remained stable Assistive Devices: Hearing Aid - Bilateral, Walker and Wheelchair Review of Systems Review of Systems: REVIEW OF SYSTEMS: Constitutional: No fever, sweats or chills Eyes: No diplopia, no worsening or blurred vision ENT: normal hearing, no trouble swallowing Respiratory: + cough, sputum, dyspnea at rest or on exertion Cardiovascular: No chest pain, tightness or palpitations Abdomen: No pain, nausea, vomiting, diarrhea or constipation Musculoskeletal: + scapular pain and left chest wall pain lateral, Neurologic: + chronic ambulation difficulty, walks with walker, No new weakness, numbness/tingling, or balance problems Skin: No rash or itch Physical Exam Physical Exam: PHYSICAL EXAM: General: awake, alert, tachypneic Head: Normocephalic, atraumatic ENT: PERRLA, EOMI, no pharyngeal exudate, mucous membranes moist Neuro: AAO x 3, speech clear and appropriate, strength intact bilaterally 5/5, sensation intact and equal all extremities and dermatomes, no pronator drift Chest: equal rise and fall of the chest, using accessory muscles, weak cough, f ollowing chest tube placement, work of breathing improved, deep inspiratory efforts are better, speach is less labored Cardiac: Regular rate and rhythm, telemetry reviewed- sinus tachycardia, skin warm dry, cap refill <3 seconds, peripheral pulses +2 no JVD, no murmur, + 3 edema to bilateral lower extremities GI: NABS x 4 quadrants, soft, nontender to palpation, no rebound, guarding or tenderness : Dos Santos to gravity Extremities: Normal inspection, no peripheral edema or erythema, calfs nontender to palpation Psych: Normal mood and affect Skin: no rash or erythema Results & Data Results & Data Vital Signs (Past 12 Hours) Vital Signs Temp Pulse Pulse Resp BP BP Pulse Ox 06/14/23 20:33 36.4 C L 115 H 24 97/56 L 93 06/14/23 20:03 36.4 C L 114 H 30 H 94/58 L 92 06/14/23 19:48 36.3 C L 70 24 104/56 L 91 06/14/23 19:30 36.2 C L 78 24 91/57 L 95 06/14/23 19:29 36.2 C L 78 24 91/57 L 94 06/14/23 18:50 86 20 101/52 L 91 06/14/23 18:20 36.6 C 67 20 145/84 H 95 06/14/23 18:05 36.3 C L 79 20 118/61 97 06/14/23 17:49 36.3 C L 80 22 118/61 97 06/14/23 15:33 06/14/23 15:33 36.4 C L 79 22 123/67 93 06/14/23 14:46 88 L 06/14/23 14:34 75 06/14/23 13:30 74 24 105/62 94 06/14/23 13:00 74 24 106/46 L 94 06/14/23 12:39 90 06/14/23 12:31 89 L 06/14/23 12:28 71 22 107/53 L 90 06/14/23 11:30 67 21 99/57 L 92 06/14/23 11:00 69 24 108/56 L 91 06/14/23 10:30 68 21 101/47 L 93 06/14/23 10:23 93 06/14/23 10:11 70 06/14/23 09:47 36.8 C 72 18 81/49 L 91 O2 Del Method O2 Flow Rate 06/14/23 20:33 6 06/14/23 20:03 6 06/14/23 19:48 6 06/14/23 19:30 6 06/14/23 19:29 6 06/14/23 18:50 06/14/23 18:20 06/14/23 18:05 6 06/14/23 17:49 6 06/14/23 15:33 Oxymask 6 06/14/23 15:33 Oxymask 6 06/14/23 14:46 Oxymask 5 06/14/23 14:34 06/14/23 13:30 Oxymask 06/14/23 13:00 Oxymask 5 06/14/23 12:39 Oxymask 4 06/14/23 12:31 Nasal Cannula 3 06/14/23 12:28 06/14/23 11:30 3 06/14/23 11:00 3 06/14/23 10:30 2 06/14/23 10:23 Nasal Cannula 2 06/14/23 10:11 06/14/23 09:47 Room Air Laboratory Results Abnormal lab results 06/14/23 06/14/23 06/14/23 Range/Units 10:30 14:56 15:36 RBC 1.97 L (4.70-6.10) M/uL Hgb 8.2 L (14.0-18.0) g/dl Hct 24.2 L (42.0-52.0) % MCV 122.8 H (80.0-100.0) fL MCH 41.6 H (25.0-34.0) pg RDW Std Deviation 62.6 H (36.4-46.3) fL Plt Count 20 L* (130-400) K/uL Neut # (Auto) 6.75 H (1.40-6.50) K/uL Lymph # (Auto) 0.33 L (1.20-3.40) K/uL Platelet Estimate Decreased L (Normal) PT 14.1 H (9.0-12.0) Seconds INR 1.3 H (0.9-1.1) APTT 36 H (21-31) Seconds ABG pH 7.30 L (7.35-7.45) ABG pCO2 31 L (35-46) mmHg ABG pO2 74 L (80-95) mmHg ABG HCO3 15 L (19-24) mmol/L ABG O2 Saturation 96.8 H (90-95) % ABG Base Excess -9.9 L (-9-1.8) mEq/L Sodium 129 L 128 L (136-145) mmol/L Potassium 5.5 H 6.0 H (3.5-5.1) mmol/L Chloride 108 H (98-107) mmol/L Carbon Dioxide 17 L 16 L (21-32) mmol/L BUN 59 H 58 H (6-23) mg/dl Creatinine 1.60 H 1.45 H (0.6-1.4) mg/dl BUN/Creatinine Ratio 36.9 H 40.0 H (10-20) Glucose 234 H 227 H (70-99(Fasting)) mg/dl POC Glucose (70-99) mg/dl Calcium 8.3 L (8.6-10.3) mg/dl Total Bilirubin 3.1 H (0.2-1.0) mg/dl Alkaline Phosphatase 133 H (34-104) U/L Total Protein 5.1 L (6.0-8.3) gm/dl Albumin 2.1 L (3.4-5.0) gm/dl Albumin/Globulin Ratio 0.7 L (0.9-2) Urine Appearance (Clear) Urine Nitrite (Negative) Urine Bilirubin (Negative) Ur Leukocyte Esterase (Negative) Urine WBC (Auto) (0-5) /hpf U Epithel Cells (Auto) (0-5) /lpf Urine Bacteria (Auto) (Negative) Amorphous Sediment (None Prsent) Nasal Screen MRSA (PCR) (Negative) Antibody Screen 06/14/23 06/14/23 06/14/23 Range/Units 16:30 17:28 17:45 RBC (4.70-6.10) M/uL Hgb (14.0-18.0) g/dl Hct (42.0-52.0) % MCV (80.0-100.0) fL MCH (25.0-34.0) pg RDW Std Deviation (36.4-46.3) fL Plt Count (130-400) K/uL Neut # (Auto) (1.40-6.50) K/uL Lymph # (Auto) (1.20-3.40) K/uL Platelet Estimate (Normal) PT (9.0-12.0) Seconds INR (0.9-1.1) APTT (21-31) Seconds ABG pH (7.35-7.45) ABG pCO2 (35-46) mmHg ABG pO2 (80-95) mmHg ABG HCO3 (19-24) mmol/L ABG O2 Saturation (90-95) % ABG Base Excess (-9-1.8) mEq/L Sodium (136-145) mmol/L Potassium (3.5-5.1) mmol/L Chloride (98-107) mmol/L Carbon Dioxide (21-32) mmol/L BUN (6-23) mg/dl Creatinine (0.6-1.4) mg/dl BUN/Creatinine Ratio (10-20) Glucose (70-99(Fasting)) mg/dl POC Glucose 212 H (70-99) mg/dl Calcium (8.6-10.3) mg/dl Total Bilirubin (0.2-1.0) mg/dl Alkaline Phosphatase (34-104) U/L Total Protein (6.0-8.3) gm/dl Albumin (3.4-5.0) gm/dl Albumin/Globulin Ratio (0.9-2) Urine Appearance (Clear) Urine Nitrite (Negative) Urine Bilirubin (Negative) Ur Leukocyte Esterase (Negative) Urine WBC (Auto) (0-5) /hpf U Epithel Cells (Auto) (0-5) /lpf Urine Bacteria (Auto) (Negative) Amorphous Sediment (None Prsent) Nasal Screen MRSA (PCR) Positive A (Negative) Antibody Screen POSITIVE A 06/14/23 06/14/23 06/14/23 Range/Units 18:01 20:23 Unknown RBC 2.01 L (4.70-6.10) M/uL Hgb 8.4 L 8.3 L (14.0-18.0) g/dl Hct 24.2 L 24.3 L (42.0-52.0) % MCV 120.9 H (80.0-100.0) fL MCH 41.3 H (25.0-34.0) pg RDW Std Deviation 62.9 H (36.4-46.3) fL Plt Count (130-400) K/uL Neut # (Auto) (1.40-6.50) K/uL Lymph # (Auto) (1.20-3.40) K/uL Platelet Estimate (Normal) PT (9.0-12.0) Seconds INR (0.9-1.1) APTT (21-31) Seconds ABG pH 7.34 L (7.35-7.45) ABG pCO2 28 L (35-46) mmHg ABG pO2 65 L (80-95) mmHg ABG HCO3 15 L (19-24) mmol/L ABG O2 Saturation (90-95) % ABG Base Excess -9.2 L (-9-1.8) mEq/L Sodium 129 L (136-145) mmol/L Potassium 5.5 H (3.5-5.1) mmol/L Chloride 108 H (98-107) mmol/L Carbon Dioxide 15 L (21-32) mmol/L BUN 55 H (6-23) mg/dl Creatinine (0.6-1.4) mg/dl BUN/Creatinine Ratio 40.7 H (10-20) Glucose 205 H (70-99(Fasting)) mg/dl POC Glucose (70-99) mg/dl Calcium 8.4 L (8.6-10.3) mg/dl Total Bilirubin (0.2-1.0) mg/dl Alkaline Phosphatase (34-104) U/L Total Protein (6.0-8.3) gm/dl Albumin (3.4-5.0) gm/dl Albumin/Globulin Ratio (0.9-2) Urine Appearance Cloudy A (Clear) Urine Nitrite Positive A (Negative) Urine Bilirubin 2+ H (Negative) Ur Leukocyte Esterase Trace H (Negative) Urine WBC (Auto) 5-10 H (0-5) /hpf U Epithel Cells (Auto) >30 H (0-5) /lpf Urine Bacteria (Auto) 1+ H (Negative) Amorphous Sediment Present A (None Prsent) Nasal Screen MRSA (PCR) (Negative) Antibody Screen Diagnostic Findings Chest X-Ray 06/14/23 10:35 XR chest 1V portable HISTORY: DYSPNEA COMPARISON: Chest CTA 05/04/2023. FINDINGS: No pneumothorax. The right lung is clear. The heart remains enlarged. There is a moderate left pleural effusions and left basilar densities. There is a right shoulder prosthesis. There is mild central pulmonary vascular congestion without overt edema. IMPRESSION: Moderate left pleural effusion and left basilar densities. This has progressed in the interval. ACT 112: Negative or not required by law. Electronically signed by: Alexander Mcgee M.D. 06/14/2023 11:[address] 06/14/23 10:[address] WITH CONTRAST CT DOSE: 789.31 mGy.cm HISTORY: L pl effusion, fall 5 d ago with bruising L chest TECHNIQUE: Multiaxial CT images of the chest were performed following the i ntravenous administration of contrast. A dose lowering technique was utilized adhering to the principles of ALARA. COMPARISON: Chest CTA 05/04/2023. FINDINGS: There are multiple old, healed bilateral rib fractures. There is an acute left posterior seventh rib fracture. There are multiple healing left anterior rib fractures. There is a right shoulder prosthesis. Compression deformities within the thoracic and lumbar spine are again noted. These are likely chronic. No pneumothorax. The central airways are patent. Stable 7 mm nodule within the right upper lobe on image 53. Right upper lobe irregular density on image 89 has increased in size. This measures 3.8 cm, previous measuring 2.1 cm. Patchy consolidation within the base the right lower lobe has also progressed. Linear consolidation within the left upper lobe posteriorly and left lower lobe consolidation has progressed. This could be due to compressive atelectasis from the moderate left pleural effusions. Heterogeneous enhancement within the left lung consolidation could represent a superimposed pneumonia. The left pleural effusions does not appear to represent a hemothorax. There is left posterior chest wall soft tissue edema. A cirrhotic liver and splenomegaly persists. There is a small amount of upper abdominal ascites. There is a 14 mm hypervascular focus within the right hepatic dome. Pneumobilia is noted. Normal esophagus. No mediastinal or hilar lymphadenopathy. The main pulmonary arteries are patent. The heart remains enlarged. No pericardial effusion. Anterior diaphragmatic lymphadenopathy persists. Normal caliber thoracic aorta with no evidence for a dissection. Healing right scapular fracture again noted. Increase in size in a 2.1 cm nodule within the superior segment of the right lower lobe on image 101. IMPRESSION: 1. There is an acute left posterior seventh rib fracture. No pneumothorax. 2. Multiple healing left anterior rib fractures. 3. Moderate left pleural effusions. 4. Consolidation within the left upper lobe posteriorly and throughout the majority of the left lower lobe. This favors compressive atelectasis from the pleural effusion. However, there is heterogeneous enhancement within these areas of consolidation. Therefore, superimposed pneumonia is also considered in the differential diagnosis. 5. An irregular consolidation within the periphery of the right upper lobe has increased in size and measures 3.8 cm, previous measuring 2.1. Therefore, this is concerning for progression of the patient's known primary malignancy . 6. Patchy densities at the base the right lower lobe have also progressed. This could represent a pneumonia. 7. Right lung nodules again noted. The 2.1 cm nodule within the right lower lobe has increased in size. These are concerning for metastatic disease. 8. Additional findings as described above. ACT 112: Negative or not required by law. Electronically signed by: Alexander Mcgee M.D. 06/14/2023 12:39 PM Abdomen/Pelvis CT 06/14/23 13:[address] WITHOUT CONTRAST CT DOSE: 1308.24 mGy.cm HISTORY: r/o hydro/obstruction. hx obstr ARF TECHNIQUE: Multiaxial CT images of the abdomen and pelvis were performed without contrast. A dose lowering technique was utilized adhering to the principles of ALARA. COMPARISON STUDY: Abdomen and pelvis CT 04/21/2023. Chest CT 06/14/2023 FINDINGS: The heart remains enlarged. There is increased density within the moderate left pleural effusion. Therefore, this favors a hemothorax given the left posterior rib fracture seen on the prior study. There may be a questionable tiny focus of active arterial extravasation on the left posterior hemithorax on the prior chest CTA. This is best seen on image 115 the prior study. Dense consolidation within the visualized left lower lobe and lingula may represent atelectasis or a pneumonia. No pneumoperitoneum. No pneumatosis. Old compression deformities again noted within the lumbar spine. Old, healed bilateral rib fractures. No acute fractures identified. Pneumobilia with persistent thickening of the wall of the common bile duct. Cirrhosis with splenomegaly again noted and a small amount of ascites. This is similar to the prior study. The adrenal glands unremarkable. Residual contrast within the urinary system from the prior CT examination. No hydronephrosis. No retroperitoneal hematoma or lymphadenopathy. Calcified plaque within the normal caliber abdominal aorta. The pancreas remains atrophic. Multiple bladder diverticula bladder wall thickening, unchanged. Suboptimal evaluation for bowel pathology due to the lack of intravenous and oral contrast. Mesenteric edema is again noted. This is similar to the prior study. Upper abdominal varicosities persist. Questionable thickening of the stomach and small bowel could be due to underdistention and the patient's diffuse edematous state. A mild gastroenteritis is not excluded. 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 A few the small bowel loops within the parastomal hernia or fluid filled and borderline distended up to 3 cm. This could represent a partial small bowel obstruction. No evidence for high-grade small bowel obstruction at this time. A small right abdominal hernia which contains a loop of small bowel, unchanged. An indeterminate 1.1 right renal lesion again noted IMPRESSION: 1. There is increased density within the moderate left pleural effusion. Therefore, this favors a hemothorax given the left posterior rib fracture seen on the prior study. There may be a questionable tiny focus of active arterial extravasation on the left posterior hemithorax on the prior chest CTA as described above. 2. Status post proctocolectomy with left lower quadrant ileostomy and parastomal hernia. A few the loops of small bowel within the parastomal hernia are slightly distended and fluid-filled up to 3 cm. This raises the possibility of a partial small bowel obstruction. No evidence for high-grade bowel obstruction at this time. 3. Mild thickening within the gastric wall and proximal small bowel loops. This could be due to underdistention or the patient's diffuse edematous state. A mild gastroenteritis is not excluded. Therefore. Cirrhosis with splenomegaly and a small amount of ascites. This remains unchanged. 5. An indeterminate 1.1 right renal lesion again noted. 6. Additional findings as described above. ACT 112: Negative or not required by law. Electronically signed by: Alexander Mcgee M.D. 06/14/2023 3:41 PM Coding Level of Care Code 96091 CRITICAL CARE 1ST 30-74M Diagnoses Hypotension I95.9 Pneumonia J18.9 FORTUNATO (acute kidney injury) N17.9 Pleural effusion J90 Multiple falls R29.6 Chronic ITP (idiopathic thrombocytopenia) D69.3 Lung cancer C34.90
[2023-06-14 20:53] LABS: Allen Test Pos (Pos)
[2023-06-14 20:56] LABS: Hematocrit (blood only) 24.3 % (42.0-52.0); Hemoglobin 8.3 g/dl (14.0-18.0); Mean Corpuscular Hemoglobin 41.3 pg (25.0-34.0); Mean Corpuscular Hgb Conc 34.2 g/dL (32.0-36.0); Mean Corpuscular Volume 120.9 fL (80.0-100.0); RDW Coefficient of Variation 14.2 % (11.5-14.5); RDW Standard Deviation 62.9 fL (36.4-46.3); Red Blood Count 2.01 M/uL (4.70-6.10)
[2023-06-14] MEDS ORDERED: ursodioL 300 MG CAP PO SCH (21:00)
[2023-06-14] MEDS ORDERED: DESMOPRESSIN ACETATE 25 MCG in SODIUM CHLORIDE 0.9% 50 ML IV ONE (21:00)
[2023-06-14] MEDS ORDERED: INSULIN ASPART PER UNIT CHARGE SC SCH (21:00)
[2023-06-14] MEDS ORDERED: TRANEXAMIC ACID / 0.7% NACL 1,000 MG/100 ML BAG IV ONE (21:00)
[2023-06-14] MEDS ORDERED: ROSUVASTATIN CALCIUM 5 MG TAB PO SCH (21:00)
[2023-06-14] MEDS ORDERED: fentaNYL citrate 2,500 MCG/250 ML BAG IV ONE (21:01)
[2023-06-14] MEDS ORDERED: PROPOFOL IV EMULSION 10 MG/ML 100 ML VIAL IV ONE (21:02)
[2023-06-14] MEDS ORDERED: NOREPINEPHRINE/D5W 4 MG/250 ML IV ONE (21:04)
[2023-06-14 21:10] LABS: Calcium 8.4 mg/dl (8.6-10.3); Potassium 5.5 mmol/L (3.5-5.1)
[2023-06-14 21:16] LABS: BUN Creatinine Ratio 40.7 (10-20); Est GFR (African American) 55.1 ml/min; Est GFR (Non-African American) 47.5 ml/min
--- NOTE | 2023-06-14 21:45 | Procedure Note ---
Procedure Note Date of Service June 14, 2023 Note 20 [employer] CATHETER PLACEMENT NOTE: Procedure: Pigtail Catheter Chest Tube Placement Indication: Large pleural effusion Anesthesia: 10 mL lidocaine 1% Written consent was obtained and placed on the chart. Timeout was done prior to the procedure. Prior to procedure, chest x-ray films were reviewed by myself and demonstrated large pleural effusion. A time-out was completed verifying correct patient, procedure, site, positioning, and implant(s) or special equipment if applicable. Utilizing bedside ultrasound, chest wall was evaluated for location for optimal chest tube placement. Location between the 6 and 7 ribs were marked on the skin using gentle pressure. The left sided chest wall was prepped with chlorhexidine and draped in the typical sterile fashion. 10 mL of 1% Lidocaine without epinephrine was used to anesthetize the skin down to the dorsal surface of the 6 rib. Serous fluid return confirmed entry into the pleural space. Lidocaine was injected into the pleural space for increased anesthetization. Introducer needle on syringe was inserted in perpendicular fashion taking care to ride just above the dorsal surface of the 6 rib. Entry into the pleural space was heralded by serous colored fluid return into the syringe while under gentle aspiration. Guide wire was advanced into the pleural space without resistance and the introducer needle was subsequently removed. Scalpel was used to make small incision of the superficial tissue, parallel to the direction of the rib anatomy. Dilator was advanced uneventfully over the guide wire into the pleural space. 20 [place] Pigtail Catheter was inserted into the pleural space. Inner introducer and guide wire were removed. Drain was immediately connected to pre- prepared BRAYDON pleur-evac system. Pigtail was sutured securely in place and sterile dressing was applied. Chest tube was placed to -20 cmH2O suction. Patient tolerated procedure well. Blood Loss: Minimal Complications: None Post procedure Chest X-ray was ordered and reviewed by myself which demonstrated adequate placement. Coding CPT Codes Pulmonary/Thoracic - Pulmonary and Thoracic: 67889 Tube thoracostomy ([id number]) Pulmonary/Thoracic - Pulmonary and Thoracic: 08359 US, Chest, real time with imaging documentation ([id number]) [facility] [place] Procedure Codes (Charges) Pulmonary/Thoracic Procedure 1: Pulmonary and Thoracic: 59428 Tube thoracostomy Procedure 2: Pulmonary and Thoracic: 56293 US, Chest, real time with imaging documentation
[2023-06-14] MEDS ORDERED: fentaNYL citrate PF 100 MCG/2 ML VIAL IV SCH (22:00)
[2023-06-14] MEDS ORDERED: VANCOMYCIN CONSULT ACTIVE PRN (22:05)
[2023-06-14] MEDS ORDERED: VANCOMYCIN HCL 1,750 MG in SODIUM CHLORIDE 0.9% 500 ML IV ONE (22:15)
[2023-06-14] MEDS ORDERED: ACETAMINOPHEN 1,000 MG/100 ML VIAL IV STA (22:27)
[2023-06-14 22:53] LABS: White Blood Count 8.01 K/ul (4.8-10.8)
[2023-06-14 22:59] LABS: Acanthocytes 2+; Basophils # (auto) 0.01 K/uL (0.00-0.20); Basophils % (auto) 0.1 %; Echinocytes 2+; Eosinophils # (auto) 0.01 K/uL (0.00-0.50); Eosinophils % (auto) 0.1 %; Immature Granulocytes # (auto) 0.11 K/uL (0.01-0.20); Immature Granulocytes % (auto) 1.4 %; Lymphocytes # (auto) 0.25 K/uL (1.20-3.40); Lymphocytes % (auto) 3.1 %; Macrocytosis Present; Monocytes % (auto) 3.7 %; Neutrophils # (auto) 7.33 K/uL (1.40-6.50); Neutrophils % (auto) 91.6 %; Platelet Count 24 K/uL (130-400); Platelet Estimate Decreased (Normal); Tear Drop Cells 1+
[2023-06-14] MEDS ORDERED: PIPERACILLIN/TAZOBACTAM 4.5 GM in DEXTROSE 5% MINI-B 100 ML IV ONE (23:00)
[2023-06-14] MEDS ORDERED: PROPOFOL BOLUS FROM BAG IV PRN (23:39)
[2023-06-14] MEDS ORDERED: fentaNYL BOLUS from BAG IV PRN (23:39)
[2023-06-14] MEDS ORDERED: STAT IV Infusion **Titration per Protocol STA (23:39)
[2023-06-14] MEDS ORDERED: fentaNYL citrate 2,500 MCG/250 ML BAG IV SCH (23:45)
[2023-06-14] MEDS ORDERED: propofoL 1,000 MG/100 ML VIAL IV SCH (23:45)
--- NOTE | 2023-06-15 06:59 | XRay Report ---
XR chest 1V portable HISTORY: 83 years-old Male chest tube placement status post placement of a left-sided chest tube COMPARISON: Chest CT of same day TECHNIQUE: AP view of the chest FINDINGS: Cardiac silhouette is enlarged. Atherosclerosis of the aorta. Pulmonary edema with left lung volume l oss and left basilar predominant consolidation redemonstrated. Layering left pleural effusion again n oted which has decreased in size status post placement of a left-sided chest tube, the tip terminatin g at the medial left lung base. No postprocedural pneumothorax identified. Right shoulder arthroplast y. IMPRESSION: 1. Decreased size of the left pleural effusion status post placement of a left-sided chest tube. 2. No pneumothorax. 3. Cardiomegaly with pulmonary edema. 4. Persistent left lung volume loss with left basilar consolidation. ACT 112: Negative or not required by law. The above report was generated using voice recognition software. It may contain grammatical, syntax o r spelling errors. Electronically signed by: Jax Gee M.D. 06/15/2023 6:58 AM
[2023-06-15] MEDS ORDERED: ASPIRIN 81 MG ECTAB PO SCH (09:00)
[2023-06-15] MEDS ORDERED: miSOPROStoL 200 MCG TAB PO SCH (09:00)
[2023-06-15] MEDS ORDERED: allopurinoL 300 MG TAB PO SCH (09:00)
[2023-06-15] MEDS ORDERED: MAGNESIUM OXIDE 400 MG TAB PO SCH (09:00)
[2023-06-15] MEDS ORDERED: OMEGA-3 (PURIFIED FISH OIL) 1 GM CAP PO SCH (09:00)
[2023-06-15] MEDS ORDERED: FOLIC ACID 1 MG TAB PO SCH (09:00)
[2023-06-15] MEDS ORDERED: PANTOprazole 40 MG TAB PO SCH (09:00)
[2023-06-15] MEDS ORDERED: LORATADINE 10 MG TAB PO SCH (09:00)
[2023-06-15] MEDS ORDERED: FINASTERIDE 5 MG TAB PO SCH (09:00)
--- NOTE | 2023-06-15 10:22 | Discharge Summary ---
Date of Service June 15, 2023 Admission HPI Per Admitting Provider Jordy is an 83yo male with PMH of ITP, lung cancer, borderline diabetes, kidney stones, BPH, CKD stage II, ulcerative colitis s/p ileostomy, chronic venous insufficiency, HTN, primary sclerosing cholangitis, CAD, AR s/p heart stent in 2001 (on aspirin), and HLD. He presented for worsening SOB since 06/12. Patient reports that he sustained a left-sided fall onto his walker on Saturday 06/09; no LOC; no head strike; not on blood thinners; he reports that he bruised his left upper lateral pectoral muscle as the walker caught under his armpit. Pain radiates to his upper left back. Pain does not radiate down the arm. He has been taking Tylenol 500 mg (2 tablets QID; advised to cut back on this), as well as applying lidocaine gel and patches for pain. His SOB developed on , and has gradually worsened. He endorses SOB at rest, as well as with exertion; worse when lying flat. No at home oxygen use. Uses a walker at baseline. He reports that he took all of his regular morning medications. No recent changes in medications. Patient manages his own medications, along with his (Betty). He denies a history of smoking, tobacco use, vaping, alcohol, and recreational drug use. He notes that he had a history of blood clot in his left lower extremity 20 years ago; however he is not on any blood thinners. No sick contacts. 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 Patient is mildly hypoxic at 93% SpO2 on oxygen mask at time of admission. ED course: NSS 500 mL IV 4L oxygen mask ROS: Patient endorses productive cough (clear sputum production), SOB at rest, abdominal discomfort (d/t hernia and straining to walk), and swelling/numbness/tingling in legs (ongoing). Patient denies fever, chills, nightsweats, CP, pleuritic CP, N/V, urinary s/s, dysuria, burning with urination, blood in the urine/stool. Amendment: CT of the abdomen/pelvis came back more in favor of a hemothorax given the left posterior rib fracture, and an increased density within the moderate left pleural effusion. It also noted questionable active arterial extravasation of the left posterior hemothorax. Transfer center was contacted for transfer to [place]. Spoke on the phone with trauma surgery (Dr. Danielle) and IR (Dr. Weems) regarding the need for intervention or IR embolization. It was noted that the patient has ITP/pancytopenia with chronic low platelets (20 today) and hemoglobin (8.2 today). CT images transferred for review. Principal Diagnosis Malignant +/- hemorrhagic effusion Mucinous lung adenocarcinoma 1* sclerosing cholangitis Splenomegaly w/ platelet sequestration, ITP PNA Discharge Exam +bilateral crackles, R lung coarse, L lung sounds greatly diminished. Improved aeration s/p chest tube placement tachycardic, regular Somnolent but awakens to voice +pallor Discharge Data Allergies Allergy/AdvReac Type Severity Reaction Status Date / Time Egg Derived Allergy Intermediate RASH WITH Verified 05/05/23 14:28 LARGE QUANTITIES latex Allergy Intermediate Verified 05/05/23 14:28 metformin Allergy Intermediate GI ISSUES Verified 05/05/23 14:28 pollen extracts Allergy Intermediate ITCHY Verified 05/05/23 14:28 EYES, SNEEZING, CONGESTION benzonatate AdvReac Severe Weakness Verified 05/05/23 14:28 [From Raeann Germain] codeine AdvReac Intermediate N/V, Verified 05/05/23 14:28 HYPOTENSTION fentanyl AdvReac Intermediate EXTREME Verified 05/05/23 14:28 NAUSEA; BP DROPS meperidine AdvReac Intermediate N/V, Verified 05/05/23 14:28 HYPOTENSTION morphine AdvReac Intermediate N/V, Verified 05/05/23 14:28 HYPOTENSTION Flu Virus Vaccine Allergy Intermediate AVOIDS DUE Uncoded 05/05/23 14:28 TO EGG ALLERGY NARCOTICS AdvReac Intermediate N/V, Uncoded 05/05/23 14:28 HYPOTENSTION Consultations 06/14/23 13:17 ED Decision to Admit Stat 06/14/23 15:27 Consult Pulmonology Routine 06/14/23 16:55 Radiology Transfer Of Images Stat 06/14/23 20:03 Consult Nephrology Routine Ordered Studies 06/14/23 10:49 CT chest diagnostic w con Stat 06/14/23 13:33 CT Abd and Pelvis [CT abd pelvis wo con] Stat Hospital Course (1) Pleural effusion: Patient seen and examined, chart reviewed, case discussed with Alexander Bc, PAC and I agree with the assessment and plan as above except as otherwise noted Labs and images reviewed Jordy is an 83-year-old male with past medical history of CAD, AR s/p PCI 2001, hyperlipidemia, UC s/p ileostomy, CKD 2, ITP, mucinous adenocarcinoma of the lung, primary sclerosing cholangitis who presented with falls, weakness, and progressive shortness of breath. On initial evaluation he appears volume contracted with a FORTUNATO, hyperkalemia, and poor intake for several days. His left-sided effusion has expanded, in the setting of cancer suspect this is malignant. [place] is not consistent with blood, although he is at risk of bleeding with history of ITP and splenic sequestration with chronic platelet levels less than 50 K and 20 K on admission. Given consolidation left upper lobe, cough, and poor appearance reasonable to cover for superimposed pneumonia. Pulmonology consulted, given significant risk comorbidity will target IR guided thoracentesis but this may not be available until Friday. Patient is thrombocytopenic with a count of 20, has not responded to doptelet in the past and has required transfusions just before [place] [facility] Reports he has had several treatments to try to raise his platelets medically but none of these have been effective or produced any clinical response/count improvement. At bedside at assessment he is on open easily arousable, answers questions appropriately. Diminished lung sounds in the left lung avalos Hypoxic respiratory failure: With increased left-sided effusion with history of mucinous adenocarcinoma, initially suspected exudative effusion. Covered for potential superimposed pneumonia as above. Supplemental O2 as needed. Pulmonary/IR consulted for thoracentesis. Patient consented for platelets to be administered prior to this. Multiple falls: Some contusions, no tense hematoma. Patient has acute left posterior seventh rib fracture without multilevel acute fracture. Pleural effusion inconsistent with hemothorax on CT with IV contrast Mucinous adenocarcinoma: S/p beam radiation and follows with at [facility] heme-onc. Consult pending tap results. Primary sclerosing cholangitis: Stable transaminases outpatient bilirubin ranging around 1.52, follows as outpatient. CT pending for obstructive pathology/FORTUNATO as noted Hyperkalemia: Patient receiving 2 L crystalloid resuscitation, no distention on bladder scan, CT pending to evaluate for obstructive FORTUNATO. Potassium did uptrend, patient has received calcium gluconate, 5 units of insulin, and sodium CCK. Bicarb infusion pending. BMP trended Addendum CT of the chest with IV contrast showed acute left posterior seventh rib fractur e. No active extravasation was noted at time of CT chest. Left pleural effusions did not appear to represent hemothorax at that time. Did have an enlarging left lower lobe consolidation and was covered superduper imposed pneumonia. L effusion without bilateral eff/edema not suspicious for CHF, suspected malignant effusion in the setting of known mucinous adenocarcinoma. Due to elevated creatinine and rising potassium with history of urinary trouble CT was obtained to evaluate for obstruction.. This showed increased density developing within the moderate left pleural effusion favoring a hemothorax given the left posterior rib fracture on prior study. Prior CTA was reviewed and a small focus of active arterial extravasation of the left posterior hemithorax was potentially present. Pt was recommended for xfer for IR embolization via transfer center, case was discussed w/ Dr. Weems with Trauma Surgery. Dr. Danielle as above. Patient was not recommended for transfer for unclear bleed and hemoglobin stability. Did discuss with Dr. Weems personally, that while the CT of the abdomen that raised concern for bleeding was a noncontrast study the bleed that was reviewed by radiology was the CTchest with contrast that showed a small possible area of extravasation. Images including CT chest were pushed for review. Discussed with Dr. Weems, given high risk of arterial emboli zation would not pursue this unless absolutely required, and would require angiography first and patient has already received a contrast load as above. He is currently hemodynamically stable with an uptrending hemoglobin, will continue to treat with fluids for FORTUNATO, trend H&H and follow at this facility overnight. If he has a downtrending H&H then benefits would exceed the risks of both additional contrast and embolization procedure and would recommend patient be transferred urgently at that time. They will continue to follow, and can update via transfer center if hemoglobin drops overnight. Patient with metabolic acidosis, clinically volume depleted. Additional fluids ordered. Nephrology consulted. 1 bag of isotonic bicarb pending following saline bolus, may give another 1 L bolus if continues to appear volume depleted prior to this. Potassium trended, creatinine was beginning to downtrend. Did receive 1 dose of sodium CZK. BMP every 4 hours. Addendum #2 Patient with continued clinical deterioration. Following fluids patient has had worsened hypoxia progressing to oxy mask and remains hypotensive and tachycardic. Lungs with increased crackles suspicious for volume overload despite hyperkalemia, fortunato, and hypotension. Repeat ABG 7.3///15. Repeat BMP remains pending. Due to clinical decline now with increasing oxygen r equirement, concern active extravasation on Ct-C w contrast reviewed case with [facility] trauma surgery and pulm ICU. Critical care to reevaluate for chest tube versus intubation, DDAVP and TXA ordered in addition to platelets which are being transfused. with increased pallor. Transfer center coordinated review with [facility], on review pt was accepted for emergent transfer by Dr. Yeung. Patient moved to ICU, pending chest tube placement and intubation for transfer. Pt clinically with improvement following chest tube with lung re- expansion, intubation was deferred prior to xfer. MRSA returned positive, vancomycin ajunct added Pt transferred same day as admit. H&P Copied as below Worsening SOB x 5 days In the setting of fall + ANDRIA lung cancer; concern for potential exudative effusion or hemothorax Hypoxic on arrival at 90% SpO2 on oxygen mask 4L/min; no at home oxygen use Chest CT revealed moderate left pleural effusions, and consolidation within the left upper lobe posteriorly BioFire negative Hgb 8.2 and HCT 24.2 on arrival; chronically low, however continue to trend H&H ABG ordered, pending Continuous oxygen supplementation to maintain SpO2 >94% Lidocaine patch to be applied to left upper back Acetaminophen 650mg p.o. q4h as needed for pain Patient's reports that he does not tolerate narcotics well Discussed left-sided thoracentesis with pulmonology; plan is to have IR perform thoracentesis on Saturday 06/16 if possible; chronic ITP (low platelets at 20 on arrival) Pulmonology reported that he would need platelets to be >50 for a tap; patient did not respond to Doptelet or steroids prior to previous biopsy, suboptimal response when given just before (would need to time the thoracentesis) Appreciate pulmonology consult A.m. CBC, BMP, PT/INR, mag, LFTs (2) Pneumonia: Chest CT could not rule out superimposed pneumonia Patient does not exhibit leukocytosis, but given his pancytopenia his white blood cell count is elevated with a neutrophil predominance Clinically, patient endorses productive cough with worsening SOB over the past week MRSA swab ordered, pending Started on Rocephin 2000mg IV q24h + Azithromycin 500mg IV q24h for empiric PNA coverage (3) Multiple falls: Multiple falls, with most recent fall onto walker on Saturday 06/09 with bruising o n left chest wall Chest CT revealed acute left posterior seventh rib fracture; no pneumothorax Patient ambulates with a walker at baseline PT/OT consulted (4) Primary cancer of left upper lobe of lung: Left lower lobe mucinous adenocarcinoma 08/21/[address] on 06/14 revealed right lung nodules that have grown in size concerning for metastatic disease S/p radiation at [facility] [place] Patient follows with Dr. Bert Patel at [facility] Heme/Onc (5) FORTUNATO (acute kidney injury): Acute on chronic CT abdomen/pelvic ordered, pending BUN 59, creatinine 1.60 (baseline 0.93), EGFR 38.7 on arrival Avoid nephrotoxic agents Hold Voltaren p.o. Hold fluid resuscitation in the setting of pleural effusions (6) Hypotension: Patient has been mildly hypotensive in the ED with SBP <100 Will hold home dose of metoprolol on 06/14 Continue regular metoprolol dosing at 50 mg at midday, and 75 mg in the evening pending return to normal BP (7) Prediabetes: Borderline; stable; not on any home medications Last A1c 6.7% on 02/05/2022 Glucose 234 on arrival A.m. 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: Thrombocytopenia at 20 upon arrival; chronic; stable (10) Cirrhosis: Noted on multiple abdomen/pelvic CT Total bilirubin elevated at 3.1 Elevated alk phos at 133 Continue to monitor daily LFTs Patient was cautioned for excessive Tylenol use, as his reported >3000mg in a day this week (11) Hyponatremia: Na at 129 on arrival Monitor daily BMP (12) Hyperkalemia: K elevated at 5.5 on arrival Continuous telemetry monitoring Monitor daily BMP (13) Bladder spasms: Patient is unable to tolerate Banks as he has a history of urethral tear Bladder scan QS (more often if needed) Continue alfuzosin, Proscar (14) History of kidney stones: Continue ursodiol, allopurinol No history of gout, per patient (15) Pancytopenia: Plan Disposition: Admit to PCU telemetry Full code Regular diet, 1500 mL fluid restriction VTE PPx: SCDs (hold chemical DVT PPx in setting of potential exudative effusion) Total Time Total Time Spent Total Time Spent (In Minutes): Time spend day of discharge 95 minutes including direct patient care, documentation, review of labs and images, and coordination of care. Discharge Plan Discharge Items Patient Disposition: Transfer Acute Care Hospital Reason For Visit: WORSENING SOB, FALLS Discharge Diagnosis: Rib trauma, suspected hemothorax ?active extravasation Hx lung adenocarcinoma w malignant effusion Activity: As commented below Non-emergency contact: Hospitalist Call non-emergency contact if: you have any medication questions Follow-up/Referrals: Tom Bucio MD [Primary Care Provider] - Diet: Nothing by Mouth Addtl Attending Provider Instructions: Patient with continued clinical deterioration. Following fluids patient has had worsened hypoxia progressing to oxy mask and remains hypotensive and tachycardic. Repeat ABG 7.3///15. Repeat BMP remains pending. Due to clinical decline now with increasing oxygen requirement, concern for active extravasation on Ct-C w contrast reviewed case with [facility] trauma surgery and pulm ICU. Critical care to reevaluate for chest tube versus intubation, DDAVP and TXA ordered in addition to platelets which are being transfused. with increased pallor. Transfer center coordinated review with [facility], on review pt was accepted for emergent transfer by Dr. Yeung. Patient moved to ICU, anticipate intubation for airway protection and emergent transfer. Addendum Signed By: <Electronically signed by Bello Rodriguez MD> 06/14/232101 Addendum Cosigned By: Created: 06/14/2303/29/2102 Date of Service June 14, 2023 Assessment & Plan (1) Pleural effusion: Plan: Worsening SOB x 5 days In the setting of fall + ANDRIA lung cancer; concern for potential exudative effusion or hemothorax Hypoxic on arrival at 90% SpO2 on oxygen mask 4L/min; no at home oxygen use Chest CT revealed moderate left pleural effusions, and consolidation within the left upper lobe posteriorly BioFire negative Hgb 8.2 and HCT 24.2 on arrival; chronically low, however continue to trend H&H ABG ordered, pending Continuous oxygen supplementation to maintain SpO2 >94% Lidocaine patch to be applied to left upper back Acetaminophen 650mg p.o. q4h as needed for pain Patient's reports that he does not tolerate narcotics well Discussed left-sided thoracentesis with pulmonology; plan is to have IR perform thoracentesis on Saturday 06/16 if possible; chronic ITP (low platelets at 20 on arrival) Pulmonology reported that he would need platelets to be >50 for a tap; patient did not respond to Doptelet or steroids prior to previous biopsy, suboptimal response when given just before (would need to time the thoracentesis) Appreciate pulmonology consult A.m. CBC, BMP, PT/INR, mag, LFTs (2) Pneumonia: Plan: Chest CT could not rule out superimposed pneumonia Patient does not exhibit leukocytosis, but given his pancytopenia his white blood cell count is elevated with a neutrophil predominance Clinically, patient endorses productive cough with worsening SOB over the past week MRSA swab ordered, pending Started on Rocephin 2000mg IV q24h + Azithromycin 500mg IV q24h for empiric PNA coverage (3) Multiple falls: Plan: Multiple falls, with most recent fall onto walker on Saturday 06/09 with bruising on left chest wall Chest CT revealed acute left posterior seventh rib fracture; no pneumothorax Patient ambulates with a walker at baseline PT/OT consulted (4) Primary cancer of left upper lobe of lung: Plan: Left lower lobe mucinous adenocarcinoma 08/21/[address] on 06/14 revealed right lung nodules that have grown in size concerning for metastatic disease S/p radiation at [facility] [place] Patient follows with Dr. Bert Patel at [facility] Heme/Onc (5) FORTUNATO (acute kidney injury): Plan: Acute on chronic CT abdomen/pelvic ordered, pending BUN 59, creatinine 1.60 (baseline 0.93), EGFR 38.7 on arrival Avoid nephrotoxic agents Hold Voltaren p.o. Hold fluid resuscitation in the setting of pleural effusions (6) Hypotension: Plan: Patient has been mildly hypotensive in the ED with SBP <100 Will hold home dose of metoprolol on 06/14 Continue regular metoprolol dosing at 50 mg at midday, and 75 mg in the evening pending return to normal BP (7) Prediabetes: Plan: Borderline; stable; not on any home medications Last A1c 6.7% on 02/05/2022 Glucose 234 on arrival A.m. A1c (8) Hx of ulcerative colitis: Plan: S/p colectomy, ileostomy in 1990 & 1994 Colostomy status (9) Thrombocytopenia due to hypersplenism: Plan: Thrombocytopenia at 20 upon arrival; chronic; stable (10) Cirrhosis: Plan: Noted on multiple abdomen/pelvic CT Total bilirubin elevated at 3.1 Elevated alk phos at 133 Continue to monitor daily LFTs Patient was cautioned for excessive Tylenol use, as his reported >3000mg in a day this week (11) Hyponatremia: Plan: Na at 129 on arrival Monitor daily BMP (12) Hyperkalemia: Plan: K elevated at 5.5 on arrival Continuous telemetry monitoring Monitor daily BMP (13) Bladder spasms: Plan: Patient is unable to tolerate Banks as he has a history of urethral tear Bladder scan QS (more often if needed) Continue alfuzosin, Proscar (14) History of kidney stones: Plan: Continue ursodiol, allopurinol No history of gout, per patient (15) Pancytopenia: Plan Disposition: Admit to PCU telemetry Full code Regular diet, 1500 mL fluid restriction VTE PPx: SCDs (hold chemical DVT PPx in setting of potential exudative effusion) Co-Signing Physician Notes Patient seen and examined, chart reviewed, case discussed with Alexander Yancey, PAC and I agree with the assessment and plan as above except as otherwise noted Labs and images reviewed Jordy is an 83-year-old male with past medical history of CAD, AR s/p PCI 2001, hyperlipidemia, UC s/p ileostomy, CKD 2, ITP, mucinous adenocarcinoma of the lung, primary sclerosing cholangitis who presented with falls, weakness, and progressive shortness of breath. On initial evaluation he appears volume contracted with a FORTUNATO, hyperkalemia, and poor intake for several days. His left-sided effusion has expanded, in the setting of cancer suspect this is malignant. [place] is not consistent with blood, although he is at risk of bleeding with history of ITP and splenic sequestration with chronic platelet levels less than 50 K and 20 K on admission. Given consolidation left upper lobe, cough, and poor appearance reasonable to cover for superimposed pneumonia. Pulmonology consulted, given significant risk comorbidity will target IR guided thoracentesis but this may not be available until Friday. Patient is thrombocytopenic with a count of 20, has not responded to doptelet in the past and has required transfusions just before [place] [facility] Reports he has had several treatments to try to raise his platelets medically but none of these have been effective or produced any clinical response/count improvement. At bedside at assessment he is on open easily arousable, answers questions appropriately. Diminished lung sounds in the left lung avalos Hypoxic respiratory failure: With increased left-sided effusion with history of mucinous adenocarcinoma, initially suspected exudative effusion. Covered for potential superimposed pneumonia as above. Supplemental O2 as needed. Pulmonary/IR consulted for thoracentesis. Patient consented for platelets to be administered prior to this. Multiple falls: Some contusions, no tense hematoma. Patient has acute left posterior seventh rib fracture without multilevel acute fracture. Pleural effusion inconsistent with hemothorax on CT with IV contrast Mucinous adenocarcinoma: S/p beam radiation and follows with at [facility] heme-onc. Consult pending tap results. Primary sclerosing cholangitis: Stable transaminases outpatient bilirubin rangin g around 1.52, follows as outpatient. CT pending for obstructive pathology/FORTUNATO as noted Hyperkalemia: Patient receiving 2 L crystalloid resuscitation, no distention on bladder scan, CT pending to evaluate for obstructive FORTUNATO. Potassium did uptrend, patient has received calcium gluconate, 5 units of insulin, and sodium CCK. Bicarb infusion pending. BMP trended Addendum CT of the chest with IV contrast showed acute left posterior seventh rib fracture. No active extravasation was noted at time of CT chest. Left pleural effusions did not appear to represent hemothorax at that time. Did have an enlarging left lower lobe consolidation and was covered superduper imposed pneumonia. L effusion without bilateral eff/edema not suspicious for CHF, suspected malignant effusion in the setting of known mucinous adenocarcinoma. Due to elevated creatinine and rising potassium with history of urinary trouble CT was obtained to evaluate for obstruction.. This showed increased density developing within the moderate left pleural effusion favoring a hemothorax given the left posterior rib fracture on prior study. Prior CTA was reviewed and a small focus of active arterial extravasation of the left posterior hemithorax was potentially present. Pt was recommended for xfer for IR embolization via transfer center, case was discussed w/ Dr. Weems with Trauma Surgery. Dr. [place] as above. Patient was not recommended for transfer for unclear bleed and hemoglobin stability. Did discuss with Dr. Weems personally, that while the CT of the abdomen that raised concern for bleeding was a noncontrast study the bleed that was reviewed by radiology was the CTchest with contrast that showed a small possible area of extravasation. Images including CT chest were pushed for review. Discussed with Dr. Weems, given high risk of arterial embolization would not pursue this unless absolutely required, and would require angiography first and patient has already received a contrast load as above. He is currently hemodynamically stable with an uptrending hemoglobin, will continue to treat with fluids for FORTUNATO, trend H&H and follow at this facility overnight. If he has a downtrending H&H then benefits would exceed the risks of both additional contrast and embolization procedure and would recommend patient be transferred urgently at that time. They will continue to follow, and can update via transfer center if hemoglobin drops overnight. Patient with metabolic acidosis, clinically volume depleted. Additional fluids ordered. Nephrology consulted. 1 bag of isotonic bicarb pending following saline bolus, may give another 1 L bolus if continues to appear volume depleted prior to this. Potassium trended, creatinine is beginning to downtrend. Did receive 1 dose of sodium CZK. BMP every 4 hours. Pending Studies at Discharge: No Stand-Alone Forms: My [facility] Skilled Items Patient informed of condition?: No DNR: No Discharge Level of Care: Other Communicable Disease: No Discharge Prognosis: Improving Lines: Peripheral IV Urinary Catheter: Yes Medications and DC Order Prescriptions: Continued Align 4 mg capsule 4 mg PO DAILY Patient Comments: as needed with antibiotics acetaminophen [Tylenol Extra Strength] 500 mg tablet 500 - 1,000 mg PO Q6H PRN (Reason: Pain) Prevagen 1 tab PO QAM albuterol sulfate 90 mcg/actuation HFA aerosol inhaler 2 puff inhalation Q6H PRN (Reason: Other) dextromethorphan-guaifenesin [Safe Tussin DM] 10-100 mg/5 mL liquid 10 ml PO Q4H PRN (Reason: Cough) Fluzone HighDose Quad 23-24 PF 240 mcg/0.7 mL syringe 0.7 ml IM ONCE Qty: 0.7 0RF omeprazole 20 mg capsule,delayed release(DR/EC) 20 mg PO DAILY diclofenac sodium 75 mg tablet,delayed release (DR/EC) 75 mg PO QAM alfuzosin 10 mg tablet extended release 24 hr 10 mg PO QDD Rx Instructions: administer after the same meal each day aspirin 81 mg tablet,delayed release (DR/EC) 81 mg PO DAILY rosuvastatin 10 mg tablet 5 mg PO HS folic acid 1 mg tablet 1 mg PO DAILY alendronate [Fosamax] 70 mg Tablet 70 mg PO WK Patient Comments: TAKES ON FRI. Rx Instructions: WEDNESDAYS allopurinol 300 mg Tablet 300 mg PO QAM finasteride [Proscar] 5 mg Tablet 5 mg PO QAM magnesium oxide 400 mg magnesium Tablet 400 mg PO QAM ursodiol 300 mg capsule 900 mg PO BID meclizine [Medi-Meclizine] 25 mg Tablet 25 mg PO TID PRN (Reason: Vertigo) cranberry 500 mg Capsule 500 mg PO QAM loratadine [Claritin] 10 mg Tablet 10 mg PO QAM misoprostol [Cytotec] 100 mcg Tablet 200 mcg PO QAM calcium carbonate-vitamin D3 [Calcium 500 + D] 500 mg(1,250mg) -200 unit Tablet 1 tab PO DAILY omega 8-epr-wct-fish oil [Fish Oil] 1,000 mg (120 mg-180 mg) Capsule 1 cap PO DAILY metoprolol tartrate 25 mg Tablet 75 mg PO QPM Qty: 90 0RF Rx Instructions: TOTAL DOSE 75 MG--TAKES WITH 50 MG TAB. melatonin 3 mg tablet 5 mg PO HS PRN (Reason: SLEEP) Soothe Lubricant 0.6-0.6 % Dropperette 2 drp OPHTHALMIC (EYE) BID Dry Eye Harman Benefits 667-250 mg-unit Capsule 3 cap PO DAILY metoprolol tartrate 50 mg tablet 50 mg PO .MIDDAY triamcinolone acetonide 0.1 % ointment 1 applic TOPICAL DAILY PRN (Reason: Other) Discharge Orders: Discharge Order (Routine); Ordered 06/14/23 Ordered By: Bello Rodriguez Admission Data Admit Date/Time: 06/14/23 14:32 Attending Provider: Bello Rodriguez Admit Provider: Bello Rodriguez Primary Care Provider: Tom Bucio Other Providers: Bello Rodriguez; Wilfredo Monterroso; Heber Oviedo Coding Level of Care Code 64507 INP/OBS DISCH >30 MIN Diagnoses Pleural effusion J90 Pneumonia J18.9 Multiple falls R29.6 Primary cancer of left upper lobe of lung C34.12 FORUTNATO (acute kidney injury) N17.9 Hypotension I95.9 Prediabetes R73.03 Hx of ulcerative colitis Z87.19 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
[2023-06-15] MEDS ORDERED: METOPROLOL TARTRATE 50 MG TAB PO SCH (12:00)
--- NOTE | 2023-06-15 12:27 | Nephrology Progress Note ---
Date of Service June 15, 2023 Assessment & Plan Admission and Anticipated Discharge Date Admission Date: June 14, 2023 Subjective Consultation request received. I discussed the patient with Dr. Rodriguez last night by phone but never saw the patient. Consultation was not completed because the patient was transferred without being seen by nephrology. PG Care Time/CCT Total # of Minutes Spent Total Time Spent with Patient: Total time spent is greater than 50% in coordination of care (as documented) at patient's floor/unit and/or counseling patient: Coding Level of Care Code None
[2023-06-15] MEDS ORDERED: VANCOMYCIN HCL 1,000 MG in SODIUM CHLORIDE 0.9% 250 ML IV SCH (20:00)
[2023-06-15] MEDS ORDERED: METOPROLOL TARTRATE 25 MG TAB PO SCH (21:00)
[2023-06-18] MEDS ORDERED: ALENDRONATE SODIUM 70 MG TAB PO SCH (07:00)
== END 2023-06-15 00:05 | disposition short-term general hospital (02) | DRG 180 ==
LOC: ED 09:40 → 4W 14:32 → 1E 20:58

== ENCOUNTER 2023-07-22 07:54 | Observation (INO) ==
--- OUTSIDE RECORDS SUMMARY | 2023-07-22 08:11 | External Medical Summary | Continuity of Care Document ---
Author Name Unknown Organization [place] [address] [facility] Address [address], [place] [id number] Care Team Providers Care Field Hauler Name Role Phone Tom Bucio Primary Care Physician [phone] Encounter [id number] Date(s): 07/11/23 - 07/11/23 [place] [address] [facility] [address] [address] [phone] Encounter Diagnosis Diabetes(Discharge Diagnosis) - 07/11/23 Lung cancer(Discharge Diagnosis) - 07/11/23 Primary mucinous adenocarcinoma of lung(Discharge Diagnosis) - 07/11/23 HYPERTENSION.(Discharge Diagnosis) - 07/11/23 Liver cirrhosis(Discharge Diagnosis) - 07/11/23 Pancytopenia(Discharge Diagnosis) - 07/11/23 CHF (congestive heart failure)(Discharge Diagnosis) - 07/11/23 Discharge Disposition: Home or Self Care Attending Physician: DAMIAN Ulloa Tara Allergies, Adverse Reactions, Alerts Substance Reaction Severity Status codeine N/V, HYPOTENSTION Moderate Active meperidine N/V, HYPOTENSTION Moderate Active narcotic analgesics N/V, HYPOTENSTION Moderate Act velia Zocor 1 Itching Moderate Active oxyCODONE Vomiting Nausea Hypotension Moderate Active Aldactone unknown Active Pneumovax 23 Eruption Active Lipitor unknown Moderate Active Demerol HCl vomiting Active Pollen ITCHY EYES, SNEEZING, CONGESTION Moderate Active Darvocet-N 50 Low blood pressure, NAUSEA,VOMITING Low blood pressure Active flu vaccines 2 AVOIDS DUE TO EGG ALLERGY Moderate Active Morphine Sulfate vomiting Active Allergy Not found in Search 3 hypotension, vomiting Active Tradjenta medication made pt non functional Active OxyCONTIN Low blood pressure NAUSEA,VOMITING, FAINTNESS, Low blood pressure Active metFORMIN diarrhea Active fentaNYL EXTREME NAUSEA; BP DROPS Moderate Act velia 1Outside Source Comment: unknown 24/11/2022 14:36 EST - minor rash ion arm lasted for 1 day more than 16 years ago. The patient statedthat he has been eating eggs and no allergic reaction. 3"all heavy narcotics" Assessment and Plan Extracted from: Title:hospital follow up Author:DAMIAN Ulloa Tar a Date:07/11/23 1.Diabetes Acute/Chronic: chronic Goal:Resolution/ control Status:stable/controlled Data: records/pt report Plan: hgba1c during admission was 7.8. His last hgb a1c was in the 6s. He has not tolerated metformin nor tradjenta. Discussed with pt and . Will hold for now. He had covid in the fall so his hgba1c may be elevated due to other medical events. Also concerned that many of the newer meds can suppress appetite which he does not needed. He has appointment with Dr. Bucio in a month. Can revisit a that time. 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 Will address lung mass that has gotten large at that appt. 4.HYPERTENSION. Acute/Chronic: chronic Goal:Resolution/ control Status:stable/controlled Data: records/pt report Plan: Well controlled. 5.Liver cirrhosis Acute/Chronic: chronic Goal:Resolution/ control Status:stable/controlled Data: records/pt report Plan:Contd follow up with [facility]. 6.Pancytopenia Acute/Chronic: chronic Goal:Resolution/ control Status:stable/controlled Data: records/pt report Plan: Follow up with heme/onc. 7.CHF (congestive heart failure) Acute/Chronic: chronic Goal:Resolution/ control Status:stable/controlled Data: records/pt report Plan: No signs of CHF. He has chronic swelling of his lower ext. Has compression sleeves on and will elevate at home. Lungs clear. No SOB. O2 nl. time spent reviewing chart, face to face visit, ordersand documentation: 47 min Immunizations Given and Recorded Vaccine Date [...] 23-valent vaccine 11/16/03 Recorded 1Result Comment: at [facility] 2Result Comment: 2022-09-24: Historical information-source unspecified 3Result [...] to Pharmacy: have shot in pharmacy, Pharmacy: [facility] #[id number] Start Date: 07/11/22 Status: Ordered Caltrate 600 with D Start: 05/13/11 11:23:00, 1 tab, PO, Daily, tab Start Date: 05/13/11 Status: Ordered ciprofloxacin 500 mg oral tablet Start: 07/11/23 14:29:00 EST, as needed for PSC Start Date: 07/11/23 Status: Ordered Claritin Start: 05/16/14 10:23:00, 10 [...] 1 tablet by mouth once daily, Pharmacy: [facility] #[id number] Start Date: 06/10/22 Status: Ordered magnesium oxide [...] leg daily until clear, Pharmacy: [facility] #[id number] Start Date: 11/07/22 Status: Ordered omega-3 polyunsaturated [...] 30 cap, Refills: 1, Pharmacy: [facility] #[id number] Start Date: 12/12/22 Status: Ordered triamcinolone 0.1% topical cream Start: 11/07/22 13:19:00 EDT, 1 appl, topical, bid, Disp# 80 g, Refills: 2, apply to dermatitis on the right leg for 2 weeks until clear, Pharmacy: [facility] #[id number] Start Date: 11/07/22 Status: Ordered triamcinolone 0.1% topical ointment Start: 04/17/23 14:20:00 EDT, 1 appl, topical, bid, Disp# 30 g, Refills: 3, apply to buttocks, Pharmacy: [facility] #[id number] Start Date: 04/17/23 Status: Ordered Tylenol 500 mg oral tablet [...] Start Date: 01/20/20 Status: Ordered Mental Status 07/11/23 Barriers to Learning one year None evide nt Mandatory Health Literacy Documentation Yes Health Literacy Communication Barriers N ever Primary Language French Problem List Condition Confirmation Course Effective Dates Status H ealth Status Informant Allergy Confirmed Active Basal cell carcinoma 1 Confirmed Active Migraine Confirmed Active Liver cirrhosis [...] stones Confirmed Active Urethral stricture Confirmed Active MD 8, 9 Confirmed Active Osteopenia 10, 11 Confirmed Active Pancytopenia 12 Confirmed Active Primary mucinous adenocarcinoma of lung Confirmed Active Urinary retention Confirmed Active Sclerosing cholangitis 13 Confirmed Active Vertigo Confirmed Active 1sees Lester Sinclair 2Sees Dr. Zaheer Pitt in [place] 32+ STAPHYLOCOCCUS AUREUS (RESISTANT TO OXACILLIN) (*MRSA*) from WOUND RIGHT LEG CELLULITIS SWAB collected 09/25/2022 16:[address] Daley 5Left 6with stomy and stomy hernia 7sees 8MI 1 weeks after TKR [address]. sees Dr. Berumen. 9H/O 10sees [facility] 11due to Hx of chronic steriod Tx and stress Fx in 2011. stopped steriod in in 1974. 12sees [address] Gayle Mcclellan in [facility] Diagnosis Diagnosis Type Effective Dates Health Status Clinical Service Informant Liver cirrhosis Discharge Diagnosis 07/11/23 Lung cancer Discharge Diagnosis 07/11/23 Diabetes Discharge Diagnosis 07/11/23 Primary mucinous adenocarcinoma of lung Discharge Diagnosis 07/11/23 HYPERTENSION. Discharge Diagnosis 07/11/23 Pancytopenia Discharge Diagnosis 07/11/23 CHF (congestive heart failure) Discharge Diagnosis 07/11/23 Procedures Procedure Date Related Diagnosis Body Site [...] to oldest [Reference Range]: 1 Heart Rate 67 bpm (07/11/23 2:14 PM) Respiratory Rate 16 br/min (07/11/23 2:14 PM) Blood Pressure 96/54mmHg (07/11/23 2:14 PM) Cuff Pulse Pressure 42 mmHg (07/11/23 2:14 PM) Social History Social History Type Response Smoking Status Never smoked cigaret debby Sex Male [facility] Outpt Note * DAMIAN Ulloa Tara: PERFORM Event Display: [facility] Outpt Note Authored Date: [id number] Chief Complaint hospital f/u, continues to have difficulty sleeping d/t pain from broken rib History of Present Illness Patient was admitted to [facility] on 06/14/23with dyspnea after a fall and was found to have a posterior left seventh rib fracture and a large pleural effusion/hemothorax with concern for active extravasation found on CT scan. Chest tube was placed, received 2 units of platelets, desmopressin, tranexamic acid and was transferred to [facility] on 06/15/23 for further management. He was also placed on antibiotics for possible community- acquired pneumonia. There was also concern for acute kidney injury on top of chronic kidney disease, lactic acidosis and hyperkalemia. He had been placed on a bicarb drip at [facility] prior to transfer to [place]. He was discharged home on 2 L of oxygen at bedtime. Was recommended that he follow-up with his oncologist/set illustrator for his known right upper lobe mass. He also had acute on chronic heart failure with preserved ejection fraction. TTE on 06/16 showed ejection fraction 50%, grade 1 diastolic dysfunction. He did undergo diuresis during admission. At the time of his discharge she was so mewhat on the dry side with weight below his dry weight. He was not discharged on any diuretics. He also had acute metabolic encephalopathy with hospital associated delirium. CT of his head wasnegative. It was recommended that he be discharged to inpatient rehab but the felt that she had enough health and equipment at home that this was not necessary. His hemoglobin A1c during admission was found to be 7.8 and he was started on Tradjenta 5 mg daily. And then was to continue onall other medications. Occupational Therapy and physical therapy was also recommended. He was d/con 06/27/23. states that fluid was tested and no cancer cells seen. He restarted PT this week. He did not tolerate tradjenta so they stopped. His highest bsg was 206 but he ate mashed potatoes and other foods that cough contribute last evening. He is starting to eat better. Ostomy is working well. Stil having some left sided rib pain but using lidocaine patches with relief. Review of Systems Constitutional: No fever, chills, sweats EENT:No vision change, eye pain, rhinorrhea, sinus pain, epistaxis, dysphagia, change in hearing,tinnitus, vertigo, oral ulcers or lesions. Pulmonary: No shortness of breath, dyspnea with exertion, cough, hemoptysis, wheezing, chest pain. Cardiovascular: No chest pain, palpitations, syncope, cyanosis, claudication, orthopnea.+chronic lower ext edema GI: No nausea, vomiting, diarrhea, melena, hematochezia, change in appetite, abdominal pain, changein bowel habits or stools Musculoskeletal: No joint swelling or pain, muscle pain, back pain. Left rib pain Neurologic: No headache, lightheadedness, dizziness, muscle weakness, paresthesias, change in speech. Psychiatric: No depression, anxiety, hallucinations, sarah, suicidal/homicidal thoughts, binging, purging Dermatologic: No rash, new/growing/changing skin lesions Endocrine: No weight change, heat or cold intolerance, tremor, insomnia, polyuria, polydipsia, polyphagia, abnormal hair growth, change in nails Physical Exam Vitals & Measurements HR:67(Monitored) RR:16 BP:96/54 SpO2:94% PHQ2 Data(Data Documented on:07/11/2023 14:14) Emotional health assessment NEGATIVE head- normocephalic eyes- PERRLA , conjunctiva clear, Pulmonary- chest expansion symmetric, CTA (clear to auscultation), eupnea, no adventitious sounds (rales, crackles, wheezes) CV (cardiovascular)- RRR no m/r/g (systolic ejection murmur, rubs, gallops), good peripheral perfusion extremities+1 edema in lower ext. skin-good turgor w/o lesions, redness, cyanosis, edema nails- no clubbing or deformities w good cap refill Neuro:Alert, Oriented Psy:no homicidal or suicidal ideations. Assessment/Plan 1.Diabetes Acute/Chronic: chronic Goal:Resolution/ control Status:stable/controlled Data: records/pt report Plan:hgba1c during admission was 7.8. His last hgb a1c was in the 6s. He has not tolerated metformin nor tradjenta. Discussed with pt and . Will hold for now. He had covid in the fall so his hgba1c may be elevated due to other medical events. Also concerned that many of the newer meds can suppress appetite which he does not needed. He has appointment with Dr. Bucio in a month. Can revisit a th at time. 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 Will address lung mass that has gotten large at that appt. 4.HYPERTENSION. Acute/Chronic: chronic Goal:Resolution/ control Status:stable/controlled Data: records/pt report Plan:Well controlled. 5.Liver cirrhosis Acute/Chronic: chronic Goal:Resolution/ control Status:stable/controlled Data: records/pt report Plan:Contd follow up with [facility]. 6.Pancytopenia Acute/Chronic: chronic Goal:Resolution/ control Status:stable/controlled Data: records/pt report Plan:Follow up with heme/onc. 7.CHF (congestive heart failure) Acute/Chronic: chronic Goal:Resolution/ control Status:stable/controlled Data: records/pt report Plan:No signs of CHF. He has chronic swelling of his lower ext. Has compression sleeves on and will elevate at home. Lungs clear. No SOB. O2 nl. time spent reviewing chart, face to face visit, ordersand documentation: 47 min Problem List/Past Medical History Ongoing Abdominal wall hernia Allergy Basal cell carcinoma CAD (coronary artery disease) Degenerative joint disease of shoulder region Diabetes Enlarged prostate Gout Hand numbness High cholesterol History of ileostomy HYPERTENSION. Iron deficiency anemia Kidney stones Liver cirrhosis MD Migraine MRSA (methicillin resistant staph aureus) culture positive Osteopenia Pancytopenia Primary mucinous adenocarcinoma of lung Rheumatoid disease Sclerosing cholangitis UC (ulcerative colitis) Urethral stricture Urinary retention Vertigo Historical Carpal Tunnel Syndrome Cellulitis Cellulitis of leg DVT Health care maintenance Lung cancer Lung nodule Multiple drug resistant organism (MDRO) culture positive Periurethral abscess Right leg pain Procedure/Surgical History CT of abdomen and pelvis [...] 600 with D), 1 tab, PO, Daily ciprofloxacin(ciprofloxacin 500 mg oral tablet) cranberry, 500 mg, PO, Daily dextromethorphan-guaifenesin(Safetussin DM) [...] capsule), 20 mg= 1 cap, PO, Daily rosuvastatin(rosuvastatin 10 mg oral tablet), 10 mg= 1 tab, PO, Daily tetanus/diphth/pertuss (Tdap) adult/adol(Boostrix (Tdap) intramuscular suspension), 0.5 mL, IM, ONCE tolterodine(Detrol) tolterodine(tolterodine 4 mg oral capsule, extended release), 4 mg= 1 cap, PO, Daily, 1 refills triamcinolone topical(triamcinolone 0.1% topical ointment), 1 appl, topical, bid, 3 refills triamcinolone topical(triamcinolone 0.1% topical cream), 1 [...] NAUSEA,VOMITING, FAINTNESS, Low blood pressure Pneumovax 23Eruption Tradjentamedication made pt non functional metFORMINdiarrhea Social History Smoking Status Never smoked [...] acel (Tdap) 08/07/2022 Recorded Comments : at [facility] influenza virus vaccine, inactivated 07/11/2022 Given SARS-CoV-2 [...] the next year) OverDue Adult Influenza Vaccine due01/03/23and every 1year Due Falls Plan of Care due07/11/23and every 1year Medicare Annual Wellness Visit due07/11/23and every 1year Adult COVID-19 Vaccination due07/11/23Unknown Frequency Adult Social Determinants of Health Screening due07/11/23Unknown Frequency Diabetes Nephropathy Management due07/11/23Unknown Frequency Shingles Vaccine due07/11/23One-time only Due In Future Diabetes Management A1c not due until01/15/24and every 366day Body Mass Index not due until01/23/24and every 366day Satisfied(in the past 1 year) Satisfied Adult Influenza Vaccine on07/11/22.Satisfied by KATHY Ceron Sharon Adult Tdap/Td Vaccine on08/07/22.Satisfied by MD Bucio Juan Body Mass Index on09/24/22.Satisfied by KATHY Quinones Paul Diabetes Management A1c on01/14/23.Satisfied by Contributor_system, [id number] Diabetic Eye Exam on09/19/22.Satisfied by MD Horvath Michael P Lipid Screening on01/14/23.Satisfied by Contributor_system, [id number] Medicare Annual Wellness Visit on07/11/22.Satisfied by MD Bucio Juan Electronic Signature on File Electronically Reviewed/Signed by: DAMIAN Walton Author Signature Dt/Tm:07/11/2023 04:25 PM Department of Family Medicine TB Patient Care team information Care Team Personnel Name: MD Zhang, Shakeel Dickerson Position: Physician - Family Med Member Role: Lifetime Relationship Address: Address: [facility] [address] [place] Name: DAMIAN Ulloa Tara Position: Nurse Pract - Family Med Member Role: Lifetime Relationship Address: Address: [address] [place] [address] [place] Name: MD Pineda Tiane Position: Resident - Pathologist Member Role: Lifetime Relationship Address: Address: [address] [place] [address] [place] Name: MD Bucio Juan Position: Physician - Family Med Member Role: Primary Care Provider Address: Address: [address] [place] [address] Care Team Related Persons Name: ROSA HUERTA Address: home [address], [place] [phone] Name: TERESA CONN Address: home [address] [place] [address]
[2023-07-22] MEDS ORDERED: SODIUM CHLORIDE 0.9% 1,000 ML IV SCH (08:15)
[2023-07-22] MEDS ORDERED: SODIUM CHLORIDE 0.9% 250 ML IV PRN (09:11)
[2023-07-22 09:12] LABS: Alanine Aminotransferase 14 U/L (7-52); Albumin Globulin Ratio 0.6 (0.9-2); Alkaline Phosphatase 136 U/L (34-104); Anion Gap 3 (3-11); Aspartate Aminotransferase 16 U/L (13-39); Bilirubin,Total 1.2 mg/dl (0.2-1.0); Blood Urea Nitrogen 41 mg/dl (6-23); Calcium 7.6 mg/dl (8.6-10.3); Carbon Dioxide 17 mmol/L (21-32); Chloride 116 mmol/L (98-107); Est GFR (African American) 67.6 ml/min; Est GFR (Non-African American) 58.3 ml/min; Globulin 3.2 gm/dl (2.5-4.0); Glucose 184 mg/dl (70-99(Fasting)); Lipase 25 U/L (11-82); Potassium 5.3 mmol/L (3.5-5.1); Sodium 136 mmol/L (136-145); Total Protein 5.2 gm/dl (6.0-8.3)
[2023-07-22 09:15] LABS: Hematocrit (blood only) 19.4 % (42.0-52.0); Hemoglobin 6.2 g/dl (14.0-18.0); Mean Corpuscular Hemoglobin 41.1 pg (25.0-34.0); Mean Corpuscular Volume 128.5 fL (80.0-100.0); Mean Platelet Volume 12.5 fL (9.4-12.4); Platelet Count 17 K/uL (130-400); RDW Coefficient of Variation 17.4 % (11.5-14.5); RDW Standard Deviation 82.3 fL (36.4-46.3); Red Blood Count 1.51 M/uL (4.70-6.10); White Blood Count 1.52 K/ul (4.8-10.8)
--- NOTE | 2023-07-22 09:42 | CT Scan Report ---
ABDOMEN AND PELVIS CT WITHOUT CONTRAST CT DOSE: 1342.07 mGy.cm HISTORY: urinary retention, massive lower abd hernia TECHNIQUE: Multiaxial CT images of the abdomen and pelvis were performed without contrast. A dose lo wering technique was utilized adhering to the principles of ALARA. COMPARISON STUDY: Abdomen and pelvis CT 06/14/2023. FINDINGS: There is a small partially loculated left pleural effusion with associated pleural thickeni ng. This is decreased in size in the interval. There is a punctate focus of gas which appears to be w ithin this loculated pleural effusion on image 13. This is indeterminate and could be due to prior in tervention. A small empyema is considered less likely but not entirely excluded. Patchy consolidation within the left lung base could represent compressive atelectasis or a pneumonitis. Right basilar li near densities favor subsegmental atelectasis. No pneumoperitoneum. No pneumatosis. Old compression d eformities at L1, L3, and L5, unchanged. There are subacute to chronic bilateral rib fractures. No ac berhane fractures identified. The heart remains enlarged. Hypodense blood pool consistent with underlying anemia. This remains unchanged. Mild elevation of the left hemidiaphragm. Mildly enlarged anterior d iaphragmatic/pericardial lymph nodes, unchanged. Multiple ventral hernias including a large left lowe r quadrant parastomal hernia containing multiple loops of small bowel and fluid. Moderate body wall e victor m which is similar to the prior study. Gastric wall thickening persists. Small amount of ascites h as slightly progressed. There is diffuse mesenteric edema. Low density nodularity within the right si de of the abdomen best seen on image 179. This may represent trapped fluid in the mesentery. Omental soft tissue nodularity is considered less likely but difficult to exclude on this noncontrast study. Pneumobilia is noted. Small amount of gas also seen within the main pancreatic duct. Heterogeneous li ligia again noted likely representing a combination of hepatic fibrosis and cirrhosis. The spleen remai ns enlarged. The adrenal glands are unremarkable. No hydronephrosis. The pancreas remains mildly atro phic. Calcified plaque within the normal caliber abdominal aorta. There is a left retroaortic renal v ein. No pelvic lymphadenopathy. Multiple bladder diverticula again noted. There is asymmetric thicken ing within the left anterior bladder base best seen on image 312. This could be due to underdistentio n. No dilated loops of bowel to suggest an obstruction. Prior proctocolectomy. Mild thickening within the duodenum and proximal jejunum, unchanged. An indeterminate 1.1 cm right renal lesion on image 13 4, unchanged. Mild thickening of the common bile duct, unchanged. IMPRESSION: 1. There is a small partially loculated left pleural effusion with associated pleural thickening. Thi s is decreased in size in the interval. There is a punctate focus of gas which appears to be within t his loculated pleural effusion . This is indeterminate and could be due to prior intervention or a re solving old hydropneumothorax. A small empyema is considered less likely but not entirely excluded. 2. No evidence for bowel obstruction. 3. Small amount of ascites and diffuse mesenteric edema has slightly progressed. 4. Low density nodularity within the right side of the abdomen is noted. This may represent trapped f luid in the mesentery. Omental soft tissue nodularity is considered less likely but difficult to excl ude on this noncontrast study. This bears watching on future examinations. 5. Status post total proctocolectomy with a left lower quadrant ileostomy and a large parastomal carmen ia. This is similar to the prior study. 6. Mild thickening within the gastric wall proximal small bowel loops, unchanged. This could be due t o the patient's diffuse edematous state. A mild gastroenteritis is not excluded. 7. Cirrhosis and splenomegaly again noted. 8. An indeterminate 1.1 cm right renal lesion, unchanged. 9. There is asymmetric thickening within the left anterior bladder base. This could be due to underdi stention. However, consider follow-up cystoscopy to exclude the possibility of a bladder lesion. 10. Additional findings as described above. ACT 112: Negative or not required by law. Electronically signed by: Alexander Mcgee M.D. 07/22/2023 9:40 AM
--- NOTE | 2023-07-22 10:27 | History & Physical Report ---
Date of Service July 22, 2023 Assessment & Plan (1) UTI (urinary tract infection): Plan: Recent urine urgency for 3 days. If urinalysis normal suspect a partially treated UTI with ciprofloxacin and will continue on his usual ciprofloxacin 10-day course. If urinalysis infective appearing will switch antibiotics to cefepime due to previous Pseudomonas. If continued symptoms despite treatment for UTI consider urethral strictures due to history of this No urine retention on CT imaging (2) Pancytopenia: Plan: Patient is not on chemotherapy Previously diagnosed with ITP although I am less sure what is driving his anemia (likely had previous iron transfusions) and leukopenia ? Liver cirrhosis Consult hematology Transfuse to aim hemoglobin greater than 7 (3) Metabolic acidosis, normal anion gap (NAG): Plan: ?Due to recent admission likely having multiple medications placed in sodium chloride IV fluids Venous pH pending Start sodium bicarb 650 mg p.o. BID (4) Hypervolemia: Plan: Suspect mainly as a result of liver cirrhosis - unable to give spironolactone due to hyperkalemia, start Lasix 40 mg IV daily, strict I's and O's, daily weights, low-sodium diet Recent echocardiogram with 50 to 54% ejection fraction. Previous proteinuria however not on recent labs. Current UA pending. If protein present will get protein to creatinine ratio to see if this is contributing. (5) Chronic ITP (idiopathic thrombocytopenia): Plan: Management per hematology. No current acute blood loss - appears to be more of a chronic problem - therefore platelet transfusion deferred on admission. (6) Mass of upper lobe of right lung: Plan: Unknown diagnosis at this. He reports follow-up planned with oncology tomorrow. 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 He notes 3 days of urinary urgency with no change in smell or color of his urine. No fevers, chills, CVA tenderness. He has ciprofloxacin to use as needed which she started on Friday and the urgency improved. However this morning at 6:15 AM he was able to pass 50 to 100 cc of urine but then continued to have a strong urge to go around 7 AM and was unable to pass any urine. Associated lower abdominal pain. Due to history of urine retention, strictures and BPH with recent need for hospitalization he and his decided to come to the ER for further evaluation. In the ER he was noted to be pancytopenic. Hemoglobin 6.2 from previous 8.3 in June. He denies any chest pain, dizziness, shortness of breath. His platelets remain low at 19 from previous counts of 24. He denies any active b leeding such as hemoptysis, hematemesis, hematochezia, melena, hematuria. On comparison to previous CT in June he was noted to have diffuse mesenteric edema which is slightly progressed in addition to small amount of ascites. He does report leg edema has been worse over the last week. He denies any shortness of breath, orthopnea, PND, chest pain. Allergies Allergy/AdvReac Type Severity Reaction Status Date / Time Egg Derived Allergy Intermediate RASH WITH Verified 07/03/23 15:31 LARGE QUANTITIES latex Allergy Intermediate Verified 07/03/23 15:31 metformin Allergy Intermediate GI ISSUES Verified 07/03/23 15:31 pollen extracts Allergy Intermediate ITCHY Verified 07/03/23 15:31 EYES, SNEEZING, CONGESTION benzonatate AdvReac Severe Weakness Verified 07/03/23 15:31 [From Raeann Germain] codeine AdvReac Intermediate N/V, Verified 07/03/23 15:31 HYPOTENSTION fentanyl AdvReac Intermediate EXTREME Verified 07/03/23 15:31 NAUSEA; BP DROPS meperidine AdvReac Intermediate N/V, Verified 07/03/23 15:31 HYPOTENSTION morphine AdvReac Intermediate N/V, Verified 07/03/23 15:31 HYPOTENSTION Flu Virus Vaccine Allergy Intermediate AVOIDS DUE Uncoded 07/03/23 15:31 TO EGG ALLERGY NARCOTICS AdvReac Intermediate N/V, Uncoded 07/03/23 15:31 HYPOTENSTION Home Medications Medication Instructions Recorded Confirmed Type alendronate 70 mg tablet (Fosamax) 70 mg PO WK 09/29/18 07/22/23 History allopurinol 300 mg tablet 300 mg PO QAM 09/29/18 07/22/23 History finasteride 5 mg tablet (Proscar) 5 mg PO QAM 09/29/18 07/22/23 History magnesium oxide 400 mg PO QAM 09/29/18 07/22/23 History folic acid 1 mg tablet 1 mg PO DAILY 02/02/19 07/22/23 History cranberry 500 mg capsule 500 mg PO QAM 04/02/19 07/22/23 History meclizine 25 mg tablet 25 mg PO TID PRN Vertigo 04/02/19 07/22/23 History (Medi-Meclizine) loratadine 10 mg tablet (Claritin) 10 mg PO QAM 06/24/19 07/22/23 History calcium carbonate 500 mg-vitamin 1 tab PO DAILY 02/09/21 07/22/23 History D3 5 mcg (200 unit) tablet (Calcium 500 + D) misoprostol 100 mcg tablet 200 mcg PO QAM 02/09/21 07/22/23 History (Cytotec) omega 5-loh-ynb-fish oil 1,000 mg 1 cap PO DAILY 02/09/21 07/22/23 History (120 mg-180 mg) capsule (Fish Oil) metoprolol tartrate 25 mg tablet 75 mg (3 x 25 mg) PO QPM #90 tabs 02/13/21 07/22/23 Rx alfuzosin 10 mg tablet,extended 10 mg PO QDD 04/30/21 07/22/23 History release 24 hr diclofenac sodium 75 mg 75 mg PO QAM 04/30/21 07/22/23 History tablet,delayed release omeprazole 20 mg capsule,delayed 20 mg PO DAILY 04/30/21 07/22/23 History release Bifidobacterium infantis 4 mg 4 mg PO DAILY 09/04/22 07/22/23 History capsule (Align) Prevagen 1 tab PO QAM 09/04/22 07/22/23 History acetaminophen 500 mg tablet 500 - 1,000 mg PO Q6H PRN Pain 09/04/22 07/22/23 History (Tylenol Extra Strength) omega-3s 667 [id number]-[id number] 3 cap PO DAILY 10/07/22 07/22/23 History oil-vitamin D3 250 unit capsule (D[facility] Eye [place] Benefits) propylene glycol-glycerin 0.6 2 drp ophthalmic (eye) BID 10/07/22 07/22/23 History %-0.6 % eye drops in a dropperette (Soothe Lubricant) aspirin 81 mg tablet,delayed 81 mg PO DAILY 11/18/22 07/22/23 History release melatonin 3 mg tablet 5 mg PO HS PRN SLEEP 11/18/22 07/22/23 History metoprolol tartrate 50 mg tablet 50 mg PO .MIDDAY 11/18/22 07/22/23 History ursodiol 300 mg capsule 900 mg PO BID 11/18/22 07/22/23 History rosuvastatin 10 mg tablet 5 mg PO HS 02/20/23 07/22/23 History albuterol sulfate 90 mcg/actuation 2 puff inhalation Q6H PRN Other 05/05/23 07/22/23 History aerosol inhaler triamcinolone acetonide 0.1 % 1 applic topical DAILY PRN Other 06/14/23 07/22/23 History topical ointment ciprofloxacin HCl 500 mg tablet 500 mg PO BID 07/22/23 07/22/23 History Past Med/Surg History Medical History (Updated 07/22/23 @ 13:57 by Shakeel Ryder MD) Mass of upper lobe of right lung Nocturnal hypoxia Atelectasis Bronchitis Basal cell carcinoma Lung cancer Left lower lobe pulmonary nodule Hypoxia Solitary pulmonary nodule Right tibial fracture Right tibial fracture Abscess of right shoulder (~09/2020) Macular degeneration Hx of vertigo Hx of basal cell carcinoma Benign prostatic hyperplasia with urinary obstruction Hx of ulcerative colitis S/p colectomy- ileostomy 1990 and 1994 History of IBS Hx of deep venous thrombosis LLE "A LONG TIME AGO" 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 Neurogenic bladder NO DOS [employer] 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 No evidence of thrombus on echo May 2022. TIA (transient ischemic attack) TIA vs complex migraine February 2019 Type 2 diabetes mellitus Left lower lobe pneumonia PVCs (premature ventricular contractions) Asymptomatic per patient History of kidney stones High cholesterol HTN (hypertension) CAD (coronary artery disease) STENT X 1 (2001) AT [facility] Sciatica Enlarged prostate Ileostomy in place History of myocardial infarction STENT X 1 (2001) S/P B/L TKA Stable; Has not had to use NTG since stent placement Surgical History (Updated 07/16/23 @ 00:10 by Background Daemon) History of cystoscopy History of lumbar laminectomy Hx of bilateral cataract extraction History of anesthesia reaction SLOW TO WAKE, BREATHING ISSUES, NAUSEA AND VOMITING History of colonoscopy History of cholecystectomy History of ERCP MULTIPLE History of appendectomy History of exploratory laparotomy X2 "COMMON DUCT RECONSTRUCTION" History of arthroplasty of right shoulder Right TSA= 05/24/16= Grade 1 view, MAC#4 at [facility] History of hand surgery RT/LEFT THUMBS History of total bilateral knee replacement Family History Father Myocardial infarction Family/Other Hypertension Nephrolithiasis Sister FH: ovarian cancer Other Family history of breast cancer in mother Social History Smoking Status: Never smoker Second Hand Exposure: Yes (childhood ); Do You Dip or Chew Tobacco: No; Hx Alcohol Use: Yes Alcohol type: wine Alcohol Intake Frequency: Monthly or Less Hx Substance Use: No Preferred Language: Mongolian Communication Ability: Effective Visual Impairment: Limited Hearing Ability: Use of Hearing Aid 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 Beliefs That Will Affect Care: None marital status: Current Living Situation: Spouse Current Living Situation Comment: Home current occupational status: retired current occupation: [employer] industry Feels Safe at Home: Yes Diet Comment: avoid heavy roughage during the past year weight has: remained stable Assistive Devices: Hearing Aid - Bilateral, Walker and Wheelchair Review of Systems Review of Systems: All systems reviewed & are unremarkable except as noted in HPI & below Physical Exam Constitutional: well developed; + not well nourished and no acute distress Eyes: + anicteric sclerae; normal pupil size ENMT: Mouth: oral mucous membranes not dry Respiratory: normal respiratory effort, lungs clear to auscultation Cardiovascular: Rate/Rhythm: regular rate and regular rhythm Heart Sounds: no murmur Extremities: normal capillary refill and + pedal edema (1+ bilateral pedal edema pitting); no calf tenderness Gastrointestinal (Abdomen): normal bowel sounds, soft, nontender, no hepatosplenomegaly Musculoskeletal: no cyanosis or clubbing, extremities motor strength 5/5 Skin: no rashes, warm and dry Neurologic: moves all extremities and awake; not confused Psychiatric: A+Ox3, euthymic affect Results & Data Results & Data Vital Signs (Past 12 Hours) Vital Signs Temp Pulse Resp BP Pulse Ox O2 Del Method 07/22/23 10:23 64 15 109/54 L 07/22/23 10:23 64 17 94 Room Air 07/22/23 07:56 36.7 C 64 17 104/53 L 94 Room Air Laboratory Results Abnormal lab results 07/22/23 07/22/23 Range/Units 08:42 09:21 WBC 1.52 L (4.8-10.8) K/ul RBC 1.51 L (4.70-6.10) M/uL Hgb 6.2 L* (14.0-18.0) g/dl Hct 19.4 L* (42.0-52.0) % MCV 128.5 H (80.0-100.0) fL MCH 41.1 H (25.0-34.0) pg RDW Std Deviation 82.3 H (36.4-46.3) fL RDW Coeff of Chani 17.4 H (11.5-14.5) % Plt Count 17 L* (130-400) K/uL MPV 12.5 H (9.4-12.4) fL Potassium 5.3 H (3.5-5.1) mmol/L Chloride 116 H (98-107) mmol/L Carbon Dioxide 17 L (21-32) mmol/L BUN 41 H (6-23) mg/dl BUN/Creatinine Ratio 36.0 H (10-20) Glucose 184 H (70-99(Fasting)) mg/dl Calcium 7.6 L (8.6-10.3) mg/dl Total Bilirubin 1.2 H (0.2-1.0) mg/dl Alkaline Phosphatase 136 H (34-104) U/L Total Protein 5.2 L (6.0-8.3) gm/dl Albumin 2.0 L (3.4-5.0) gm/dl Albumin/Globulin Ratio 0.6 L (0.9-2) Crossmatch See Detail Diagnostic Findings ABDOMEN AND PELVIS CT WITHOUT CONTRAST CT DOSE: 1342.07 mGy.cm HISTORY: urinary retention, massive lower abd hernia TECHNIQUE: Multiaxial CT images of the abdomen and pelvis were performed without contrast. A dose lowering technique was utilized adhering to the principles of ALARA. COMPARISON STUDY: Abdomen and pelvis CT 06/14/2023. FINDINGS: There is a small partially loculated left pleural effusion with associated pleural thickening. This is decreased in size in the interval. There is a punctate focus of gas which appears to be within this loculated pleural effusion on image 13. This is indeterminate and could be due to prior intervention. A small empyema is considered less likely but not entirely excluded. Patchy consolidation within the left lung base could represent compressive atelectasis or a pneumonitis. Right basilar linear densities favor subsegmental atelectasis. No pneumoperitoneum. No pneumatosis. Old compression deformities at L1, L3, and L5, unchanged. There are subacute to chronic bilateral rib fractures. No acute fractures identified. The heart remains enlarged. Hypodense blood pool consistent with underlying anemia. This remains unchanged. Mild elevation of the left hemidiaphragm. Mildly enlarged anterior diaphragmatic/pericardial lymph nodes, unchanged. Multiple ventral hernias including a large left lower quadrant parastomal hernia containing multiple loops of small bowel and fluid. Moderate body wall edema which is similar to the prior study. Gastric wall thickening persists. Small amount of ascites has slightly progressed. There is diffuse mesenteric edema. Low density nodularity within the right side of the abdomen best seen on image 179. This may represent trapped fluid in the mesentery. Omental soft tissue nodularity is considered less likely but difficult to exclude on this noncontrast study. Pneumobilia is noted. Small amount of gas also seen within the main pancreatic duct. Heterogeneous liver again noted likely representing a combination of hepatic fibrosis and cirrhosis. The spleen remains enlarged. The adrenal glands are unremarkable. No hydronephrosis. The pancreas remains mildly atrophic. Calcified plaque within the normal caliber abdominal aorta. There is a left retroaortic renal vein. No pelvic lymphadenopathy. Multiple bladder diverticula again noted. There is asymmetric thickening within the left anterior bladder base best seen on image 312. This could be due to underdistention. No dilated loops of bowel to suggest an obstruction. Prior proctocolectomy. Mild thickening within the duodenum and proximal jejunum, unchanged. An indeterminate 1.1 cm right renal lesion on image 134, unchanged. Mild thickening of the common bile duct, unchanged. IMPRESSION: 1. There is a small partially loculated left pleural effusion with associated pleural thickening. This is decreased in size in the interval. There is a punctate focus of gas which appears to be within this loculated pleural effusion . This is indeterminate and could be due to prior intervention or a resolving old hydropneumothorax. A small empyema is considered less likely but not entirely excluded. 2. No evidence for bowel obstruction. 3. Small amount of ascites and diffuse mesenteric edema has slightly progressed. 4. Low density nodularity within the right side of the abdomen is noted. This may represent trapped fluid in the mesentery. Omental soft tissue nodularity is considered less likely but difficult to exclude on this noncontrast study. This bears watching on future examinations. 5. Status post total proctocolectomy with a left lower quadrant ileostomy and a large parastomal hernia. This is similar to the prior study. 6. Mild thickening within the gastric wall proximal small bowel loops, unchanged . This could be due to the patient's diffuse edematous state. A mild gastroenteritis is not excluded. 7. Cirrhosis and splenomegaly again noted. 8. An indeterminate 1.1 cm right renal lesion, unchanged. 9. There is asymmetric thickening within the left anterior bladder base. This could be due to underdistention. However, consider follow-up cystoscopy to exclude the possibility of a bladder lesion. 10. Additional findings as described above. Medications Administered ER Medications Given: None Code Status & VTE Plan Code Status Full VTE Prophylaxis Plan VTE Prophylaxis will be ordered: No PG Care Time/CCT Total # of Minutes Spent Total Time Spent with Patient: Total time spent is greater than 50% in coordination of care (as documented) at patient's floor/unit and/or counseling patient: Coding Level of Care Code 47976 INT INP/OBS CARE 3/75MIN Diagnoses UTI (urinary tract infection) N39.0 Pancytopenia D61.818 Metabolic acidosis, normal anion gap (NAG) E87.20 Hypervolemia E87.70 Chronic ITP (idiopathic thrombocytopenia) D69.3 Mass of upper lobe of right lung R91.8 HTN (hypertension) I10 BPH NOS w ur obs/LUTS N40.1 Hyperkalemia E87.5 Sclerosing cholangitis K83.09 Abdominal ascites R18.8
--- NOTE | 2023-07-22 10:43 | XRay Report ---
XR chest 1V portable CLINICAL HISTORY: f/u pleural effusions, pneumothorax TECHNIQUE: Single frontal radiograph of the chest was obtained. Comparison: Comparison is made to chest radiograph of [address] abdomen pelvis 07/22/2023 FINDINGS: No lines and tubes are seen. Calcified aortic knob is seen. Left retrocardiac opacity is seen. Modera te left pleural effusion, decreased from prior exam. IMPRESSION: Interval decrease in size of left pleural effusion. Underlying airspace opacities likely represent at electasis. Please see CT abdomen performed same day for findings of loculated effusion with a tiny fo cus of gas. ACT 112: Negative or not required by law. Electronically signed by: Jelani Giordano M.D. 07/22/2023 10:41 AM
[2023-07-22 10:48] LABS: Eosinophils # (auto) 0.02 K/uL (0.00-0.50); Eosinophils % (auto) 1.3 %; Lymphocytes # (auto) 0.33 K/uL (1.20-3.40); Lymphocytes % (auto) 21.7 %; Monocytes # (auto) 0.16 K/uL (0.11-0.59); Monocytes % (auto) 10.5 %; Neutrophils # (auto) 1.01 K/uL (1.40-6.50); Neutrophils % (auto) 66.5 %; Smudge Cells Present
[2023-07-22 11:34] LABS: Base Excess VBG -9.5 mEq/L; HCO3 VBG 16 mmol/L; Oxygen Saturation VBG 68.6 %; PCO2 VBG 35 mmHg (38-50); PO2 VBG 43 mmHg; pH VBG 7.28 (7.36-7.41)
--- NOTE | 2023-07-22 11:34 | Emergency Department Note ---
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 10 systems were reviewed and are otherwise negative. ALLERGIES: see below MEDICATIONS: see below PMH: see below SOCIAL HISTORY: see below DDx: [] PHYSICAL EXAM: Vital signs reviewed. General: Well-appearing, in no significant distress. HEENT: No scleral icterus, PERRLA, neck supple. Atraumatic. Cardiovascular: Regular rate and rhythm, no extra sounds. Pulmonary: Clear to auscultation bilaterally, normal work of breathing. Abdomen: Soft, nontender, nondistended, positive bowel sounds. Musculoskeletal: Atraumatic, no peripheral edema. Neurologic: Patient awake alert and oriented x 3, speech is clear Skin: Warm, dry, no rash EMERGENCY DEPARTMENT COURSE/MDM: [] MONITORING: An order for cardiac monitoring was placed and the patient is noted to be in a [] at [] beats per minute. RADIOLOGY: EKG: DISPOSITION: Past Med/Surg History Medical History (Updated 07/22/23 @ 00:08 by Background Daemon) Mass of upper lobe of right lung Nocturnal hypoxia Atelectasis Bronchitis Basal cell carcinoma Lung cancer Left lower lobe pulmonary nodule Hypoxia Solitary pulmonary nodule Right tibial fracture Right tibial fracture Abscess of right shoulder (~09/2020) Macular degeneration Hx of vertigo Hx of basal cell carcinoma Benign prostatic hyperplasia with urinary obstruction Hx of ulcerative colitis S/p colectomy- ileostomy 1990 and 1994 History of IBS Hx of deep venous thrombosis LLE "A LONG TIME AGO" 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 Neurogenic bladder NO DOS [employer] 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 No evidence of thrombus on echo May 2022. TIA (transient ischemic attack) TIA vs complex migraine February 2019 Type 2 diabetes mellitus Left lower lobe pneumonia PVCs (premature ventricular contractions) Asymptomatic per patient History of kidney stones High cholesterol HTN (hypertension) CAD (coronary artery disease) STENT X 1 (2001) AT [facility] Sciatica Enlarged prostate Ileostomy in place History of myocardial infarction STENT X 1 (2001) S/P B/L TKA Stable; Has not had to use NTG since stent placement Surgical History (Updated 07/16/23 @ 00:10 by Background Gume) History of cystoscopy History of lumbar laminectomy Hx of bilateral cataract extraction History of anesthesia reaction SLOW TO WAKE, BREATHING ISSUES, NAUSEA AND VOMITING History of colonoscopy History of cholecystectomy History of ERCP MULTIPLE History of appendectomy History of exploratory laparotomy X2 "COMMON DUCT RECONSTRUCTION" History of arthroplasty of right shoulder Right TSA= 05/24/16= Grade 1 view, MAC#4 at [facility] History of hand surgery RT/LEFT THUMBS History of total bilateral knee replacement Family History Father Myocardial infarction Family/Other Hypertension Nephrolithiasis Sister FH: ovarian cancer Other Family history of breast cancer in mother Social History Smoking Status: Never smoker Second Hand Exposure: Yes (childhood ); Do You Dip or Chew Tobacco: No; Hx Alcohol Use: Yes Alcohol type: wine Alcohol Intake Frequency: Monthly or Less Hx Substance Use: No Preferred Language: Colombian Communication Ability: Effective Visual Impairment: Limited Hearing Ability: Use of Hearing Aid Equipment Monitor Phototypesetting Required: No Beliefs That Will Affect Care: None marital status: Current Living Situation: Spouse Current Living Situation Comment: Home current occupational status: retired current occupation: [employer] industry Feels Safe at Home: Yes Diet Comment: avoid heavy roughage during the past year weight has: remained stable Assistive Devices: Hearing Aid - Bilateral, Walker and Wheelchair Allergies Allergies Allergy/AdvReac Type Severity Reaction Status Date / Time Egg Derived Allergy Intermediate RASH WITH Verified 07/03/23 15:31 LARGE QUANTITIES latex Allergy Intermediate Verified 07/03/23 15:31 metformin Allergy Intermediate GI ISSUES Verified 07/03/23 15:31 pollen extracts Allergy Intermediate ITCHY Verified 07/03/23 15:31 EYES, SNEEZING, CONGESTION benzonatate AdvReac Severe Weakness Verified 07/03/23 15:31 [From Raeann Germain] codeine AdvReac Intermediate N/V, Verified 07/03/23 15:31 HYPOTENSTION fentanyl AdvReac Intermediate EXTREME Verified 07/03/23 15:31 NAUSEA; BP DROPS meperidine AdvReac Intermediate N/V, Verified 07/03/23 15:31 HYPOTENSTION morphine AdvReac Intermediate N/V, Verified 07/03/23 15:31 HYPOTENSTION Flu Virus Vaccine Allergy Intermediate AVOIDS DUE Uncoded 07/03/23 15:31 TO EGG ALLERGY NARCOTICS AdvReac Intermediate N/V, Uncoded 07/03/23 15:31 HYPOTENSTION Home Meds Home Medications Medication Instructions Recorded Confirmed alendronate 70 mg tablet (Fosamax) 70 mg PO WK 09/29/18 07/22/23 allopurinol 300 mg tablet 300 mg PO QAM 09/29/18 07/22/23 finasteride 5 mg tablet (Proscar) 5 mg PO QAM 09/29/18 07/22/23 magnesium oxide 400 mg PO QAM 09/29/18 07/22/23 folic acid 1 mg tablet 1 mg PO DAILY 02/02/19 07/22/23 cranberry 500 mg capsule 500 mg PO QAM 04/02/19 07/22/23 meclizine 25 mg tablet 25 mg PO TID PRN Vertigo 04/02/19 07/22/23 (Medi-Meclizine) loratadine 10 mg tablet (Claritin) 10 mg PO QAM 06/24/19 07/22/23 calcium carbonate 500 mg-vitamin 1 tab PO DAILY 02/09/21 07/22/23 D3 5 mcg (200 unit) tablet (Calcium 500 + D) misoprostol 100 mcg tablet 200 mcg PO QAM 02/09/21 07/22/23 (Cytotec) omega 9-nvl-crc-fish oil 1,000 mg 1 cap PO DAILY 02/09/21 07/22/23 (120 mg-180 mg) capsule (Fish Oil) alfuzosin 10 mg tablet,extended 10 mg PO QDD 04/30/21 07/22/23 release 24 hr diclofenac sodium 75 mg 75 mg PO QAM 04/30/21 07/22/23 tablet,delayed release omeprazole 20 mg capsule,delayed 20 mg PO DAILY 04/30/21 07/22/23 release Bifidobacterium infantis 4 mg 4 mg PO DAILY 09/04/22 07/22/23 capsule (Align) Prevagen 1 tab PO QAM 09/04/22 07/22/23 acetaminophen 500 mg tablet 500 - 1,000 mg PO Q6H PRN Pain 09/04/22 07/22/23 (Tylenol Extra Strength) omega-3s 667 dj-azs-ywj-fish 3 cap PO DAILY 10/07/22 07/22/23 oil-vitamin D3 250 unit capsule (Dry Eye [place] Benefits) propylene glycol-glycerin 0.6 2 drp ophthalmic (eye) BID 10/07/22 07/22/23 %-0.6 % eye drops in a dropperette (Soothe Lubricant) aspirin 81 mg tablet,delayed 81 mg PO DAILY 11/18/22 07/22/23 release melatonin 3 mg tablet 5 mg PO HS PRN SLEEP 11/18/22 07/22/23 metoprolol tartrate 50 mg tablet 50 mg PO .MIDDAY 11/18/22 07/22/23 ursodiol 300 mg capsule 900 mg PO BID 11/18/22 07/22/23 rosuvastatin 10 mg tablet 5 mg PO HS 02/20/23 07/22/23 albuterol sulfate 90 mcg/actuation 2 puff inhalation Q6H PRN Other 05/05/23 07/22/23 aerosol inhaler triamcinolone acetonide 0.1 % 1 applic topical DAILY PRN Other 06/14/23 07/22/23 topical ointment ciprofloxacin HCl 500 mg tablet 500 mg PO BID 07/22/23 07/22/23 Previous Rx's Medication Instructions Recorded metoprolol tartrate 25 mg tablet 75 mg (3 x 25 mg) PO QPM #90 tabs 02/13/21 Results & Data (ED) Vital Signs Vital Signs - 24 hr 07/22/23 07:56 07/22/23 10:23 07/22/23 10:23 Temperature 36.7 C Temperature Source Temporal Artery Scan Pulse Rate 64 64 64 Pulse Rate from SpO2 Sensor Pulse Rhythm Regular Respiratory Rate 17 17 15 Respiratory Effort / Characteristics Non-Labored Spontaneous Respiratory Depth Normal Blood Pressure 104/53 L 109/54 L Blood Pressure Mean 70 72 Blood Pressure Position Sitting Pulse Oximetry 94 94 Oxygen Delivery Method Room Air Room Air Sepsis Recent Fever Within 48 Hours No Sepsis New/Unexplained Change in Mental Status No Sepsis Action Taken by Nursing No Action Required 07/22/23 10:29 07/22/23 10:30 07/22/23 11:00 Temperature Temperature Source Pulse Rate 64 68 64 Pulse Rate from SpO2 Sensor 66 63 Pulse Rhythm Respiratory Rate 19 16 Respiratory Effort / Characteristics Respiratory Depth Blood Pressure 110/55 L 105/58 L Blood Pressure Mean 73 73 Blood Pressure Position Pulse Oximetry 93 92 Oxygen Delivery Method Sepsis Recent Fever Within 48 Hours Sepsis New/Unexplained Change in Mental Status Sepsis Action Taken by Nursing Laboratory Data 07/22/23 08:42 07/22/23 08:42 Lab Results 07/22/23 07/22/23 Range/Units 08:42 09:21 WBC 1.52 L (4.8-10.8) K/ul RBC 1.51 L (4.70-6.10) M/uL Hgb 6.2 L* (14.0-18.0) g/dl Hct 19.4 L* (42.0-52.0) % MCV 128.5 H (80.0-100.0) fL MCH 41.1 H (25.0-34.0) pg MCHC 32.0 (32.0-36.0) g/dL RDW Std Deviation 82.3 H (36.4-46.3) fL RDW Coeff of Chani 17.4 H (11.5-14.5) % Plt Count 17 L* (130-400) K/uL MPV 12.5 H (9.4-12.4) fL Immature Gran % (Auto) 0.0 % Neut % (Auto) 66.5 % Lymph % (Auto) 21.7 % [place] % (Auto) 10.5 % Eos % (Auto) 1.3 % Baso % (Auto) 0.0 % Neut # (Auto) 1.01 L (1.40-6.50) K/uL Lymph # (Auto) 0.33 L (1.20-3.40) K/uL [place] # (Auto) 0.16 (0.11-0.59) K/uL Eos # (Auto) 0.02 (0.00-0.50) K/uL Baso # (Auto) 0.00 (0.00-0.20) K/uL Immature Gran # (Auto) 0.00 L (0.01-0.20) K/uL Smudge Cells Present Sodium 136 (136-145) mmol/L Potassium 5.3 H (3.5-5.1) mmol/L Chloride 116 H (98-107) mmol/L Carbon Dioxide 17 L (21-32) mmol/L Anion Gap 3 (3-11) BUN 41 H (6-23) mg/dl Creatinine 1.14 (0.6-1.4) mg/dl Est Cr Clr Drug Dosing Not Reportable Est GFR ( Amer) 67.6 ml/min Est GFR (Non-Af Amer) 58.3 ml/min BUN/Creatinine Ratio 36.0 H (10-20) Glucose 184 H (70-99(Fasting)) mg/dl Calcium 7.6 L (8.6-10.3) mg/dl Total Bilirubin 1.2 H (0.2-1.0) mg/dl AST 16 (13-39) U/L ALT 14 (7-52) U/L Alkaline Phosphatase 136 H (34-104) U/L Total Protein 5.2 L (6.0-8.3) gm/dl Albumin 2.0 L (3.4-5.0) gm/dl Globulin 3.2 (2.5-4.0) gm/dl Albumin/Globulin Ratio 0.6 L (0.9-2) Lipase 25 (11-82) U/L Crossmatch See Detail Administered Medications Discontinued Medications Sodium Chloride (Nss) 1,000 mls @ 125 mls/hr IV .Q8H SHAGUFTA Stop: 08/21/23 08:14 Last Admin: 07/22/23 08:50 Dose: Not Given Documented By: TOSHIA Imaging Data Radiologist's Impression: Abdomen/Pelvis CT 07/22/23 08:[address] WITHOUT CONTRAST CT DOSE: 1342.07 mGy.cm HISTORY: urinary retention, massive lower abd hernia TECHNIQUE: Multiaxial CT images of the abdomen and pelvis were performed without contrast. A dose lowering technique was utilized adhering to the principles of ALARA. COMPARISON STUDY: Abdomen and pelvis CT 06/14/2023. FINDINGS: There is a small partially loculated left pleural effusion with associated pleural thickening. This is decreased in size in the interval. There is a punctate focus of gas which appears to be within this loculated pleural effusion on image 13. This is indeterminate and could be due to prior intervention. A small empyema is considered less likely but not entirely excluded. Patchy consolidation within the left lung base could represent compressive atelectasis or a pneumonitis. Right basilar linear densities favor subsegmental atelectasis. No pneumoperitoneum. No pneumatosis. Old compression deformities at L1, L3, and L5, unchanged. There are subacute to chronic bilateral rib fractures. No acute fractures identified. The heart remains enlarged. Hypodense blood pool consistent with underlying anemia. This remains unchanged. Mild elevation of the left hemidiaphragm. Mildly enlarged anterior diaphragmatic/pericardial lymph nodes, unchanged. Multiple ventral hernias including a large left lower quadrant parastomal hernia containing multiple loops of small bowel and fluid. Moderate body wall edema which is similar to the prior study. Gastric wall thickening persists. Small amount of ascites has slightly progressed. There is diffuse mesenteric edema. Low density nodularity within the right side of the abdomen best seen on image 179. This may represent trapped fluid in the mesentery. Omental soft tissue nodularity is considered less likely but difficult to exclude on this noncontrast study. Pneumobilia is noted. Small amount of gas also seen within the main pancreatic duct. Heterogeneous liver again noted likely representing a combination of hepatic fibrosis and cirrhosis. The spleen remains enlarged. The adrenal glands are unremarkable. No hydronephrosis. The pancreas remains mildly atrophic. Calcified plaque within the normal caliber abdominal aorta. There is a left retroaortic renal vein. No pelvic lymphadenopathy. Multiple bladder diverticula again noted. There is asymmetric thickening within the left anterior bladder base best seen on image 312. This could be due to underdistention. No dilated loops of bowel to suggest an obstruction. Prior proctocolectomy. Mild thickening within the duodenum and proximal jejunum, unchanged. An indeterminate 1.1 cm right renal lesion on image 134, unchanged. Mild thickening of the common bile duct, unchanged. IMPRESSION: 1. There is a small partially loculated left pleural effusion with associated pleural thickening. This is decreased in size in the interval. There is a punctate focus of gas which appears to be within this loculated pleural effusion . This is indeterminate and could be due to prior intervention or a resolving old hydropneumothorax. A small empyema is considered less likely but not entirely excluded. 2. No evidence for bowel obstruction. 3. Small amount of ascites and diffuse mesenteric edema has slightly progressed. 4. Low density nodularity within the right side of the abdomen is noted. This may represent trapped fluid in the mesentery. Omental soft tissue nodularity is considered less likely but difficult to exclude on this noncontrast study. This bears watching on future examinations. 5. Status post total proctocolectomy with a left lower quadrant ileostomy and a large parastomal hernia. This is similar to the prior study. 6. Mild thickening within the gastric wall proximal small bowel loops, unchanged. This could be due to the patient's diffuse edematous state. A mild gastroenteritis is not excluded. 7. Cirrhosis and splenomegaly again noted. 8. An indeterminate 1.1 cm right renal lesion, unchanged. 9. There is asymmetric thickening within the left anterior bladder base. This could be due to underdistention. However, consider follow-up cystoscopy to exclude the possibility of a bladder lesion. 10. Additional findings as described above. ACT 112: Negative or not required by law. Electronically signed by: Alexander Mcgee M.D. 07/22/2023 9:40 AM Chest X-Ray 07/22/23 10:17 XR chest 1V portable CLINICAL HISTORY: f/u pleural effusions, pneumothorax TECHNIQUE: Single frontal radiograph of the chest was obtained. Comparison: Comparison is made to chest radiograph of [address] abdomen pelvis 07/22/2023 FINDINGS: No lines and tubes are seen. Calcified aortic knob is seen. Left retrocardiac opacity is seen. Moderate left pleural effusion, decreased from prior exam. IMPRESSION: Interval decrease in size of left pleural effusion. Underlying airspace opacities likely represent atelectasis. Please see CT abdomen performed same day for findings of loculated effusion with a tiny focus of gas. ACT 112: Negative or not required by law. Electronically signed by: Jelani Giordano M.D. 07/22/2023 10:41 AM Discharge Plan Visit Data Chief Complaint: Urinary Symptoms Stated Complaint: Unable to pee ED Provider: Faina Obrien Forms Stand Alone Forms: [facility] Prescriptions Prescriptions: No Action Align 4 mg capsule 4 mg PO DAILY Patient Comments: as needed with antibiotics acetaminophen [Tylenol Extra Strength] 500 mg tablet 500 - 1,000 mg PO Q6H PRN (Reason: Pain) Prevagen 1 tab PO QAM albuterol sulfate 90 mcg/actuation HFA aerosol inhaler 2 puff inhalation Q6H PRN (Reason: Other) omeprazole 20 mg capsule,delayed release(DR/EC) 20 mg PO DAILY diclofenac sodium 75 mg tablet,delayed release (DR/EC) 75 mg PO QAM alfuzosin 10 mg tablet extended release 24 hr 10 mg PO QDD Rx Instructions: administer after the same meal each day aspirin 81 mg tablet,delayed release (DR/EC) 81 mg PO DAILY rosuvastatin 10 mg tablet 5 mg PO HS folic acid 1 mg tablet 1 mg PO DAILY alendronate [Fosamax] 70 mg Tablet 70 mg PO WK Patient Comments: TAKES ON FRI. Rx Instructions: WEDNESDAYS allopurinol 300 mg Tablet 300 mg PO QAM finasteride [Proscar] 5 mg Tablet 5 mg PO QAM magnesium oxide 400 mg magnesium Tablet 400 mg PO QAM ursodiol 300 mg capsule 900 mg PO BID meclizine [Medi-Meclizine] 25 mg Tablet 25 mg PO TID PRN (Reason: Vertigo) cranberry 500 mg Capsule 500 mg PO QAM loratadine [Claritin] 10 mg Tablet 10 mg PO QAM misoprostol [Cytotec] 100 mcg Tablet 200 mcg PO QAM calcium carbonate-vitamin D3 [Calcium 500 + D] 500 mg(1,250mg) -200 unit Tablet 1 tab PO DAILY omega 0-jul-kzf-fish oil [Fish Oil] 1,000 mg (120 mg-180 mg) Capsule 1 cap PO DAILY metoprolol tartrate 25 mg Tablet 75 mg PO QPM Qty: 90 0RF Rx Instructions: TOTAL DOSE 75 MG--TAKES WITH 50 MG TAB. melatonin 3 mg tablet 5 mg PO HS PRN (Reason: SLEEP) Soothe Lubricant 0.6-0.6 % Dropperette 2 drp OPHTHALMIC (EYE) BID Dry Eye [place] Benefits 667-250 mg-unit Capsule 3 cap PO DAILY metoprolol tartrate 50 mg tablet 50 mg PO .MIDDAY triamcinolone acetonide 0.1 % ointment 1 applic TOPICAL DAILY PRN (Reason: Other) ciprofloxacin HCl 500 mg Tablet 500 mg PO BID Referrals Referrals: Tom Bucio MD [Primary Care Provider] -
[2023-07-22 11:51] LABS: Hematocrit (blood only) 18.9 % (42.0-52.0); Hemoglobin 6.2 g/dl (14.0-18.0); Mean Corpuscular Hemoglobin 42.8 pg (25.0-34.0); Mean Corpuscular Hgb Conc 32.8 g/dL (32.0-36.0); Mean Corpuscular Volume 130.3 fL (80.0-100.0); Platelet Count 19 K/uL (130-400); RDW Coefficient of Variation 17.3 % (11.5-14.5); RDW Standard Deviation 82.4 fL (36.4-46.3); Red Blood Count 1.45 M/uL (4.70-6.10); White Blood Count 1.51 K/ul (4.8-10.8)
[2023-07-22 11:57] LABS: C Reactive Protein 5.15 mg/dl (0-0.5); Magnesium 1.7 mg/dl (1.7-2.4); Phosphorus 3.2 mg/dl (2.5-4.9)
[2023-07-22 12:15] LABS: Appearance Urine Clear (Clear); Bacteria Urine Automated Negative (Negative); Bilirubin Urine Negative (Negative); Blood Urine Negative (Negative); Color Urine Yellow; Epithelial Cell Urine Auto 20-30 /lpf (0-5); Glucose Urine UA Negative (Negative); Ketones Urine Negative (Negative); Leukocyte Esterase Urine Trace (Negative); Nitrite Urine Negative (Negative); Protein Urine Negative (Negative); RBC Urine Automated 0-4 /hpf (0-4); Specific Gravity Urine 1.019 (1.000-1.030); Urobilinogen Urine Negative (Negative)
[2023-07-22 12:16] LABS: Ferritin 73.5 ng/ml (8-388)
[2023-07-22 12:21] LABS: Folate (Folic Acid),Ser orPlas > 22.30 ng/ml (>5.38)
[2023-07-22 12:22] LABS: Vitamin B12 1071 pg/ml (180-914)
[2023-07-22] MEDS ORDERED: miSOPROStoL 200 MCG TAB PO SCH (12:46)
[2023-07-22] MEDS ORDERED: PANTOprazole 40 MG TAB PO SCH (12:46)
[2023-07-22] MEDS ORDERED: MELATONIN 3 MG TAB PO PRN ×2 (12:46→13:09)
[2023-07-22] MEDS ORDERED: METOPROLOL TARTRATE 50 MG TAB PO SCH ×2 (12:46→21:00)
[2023-07-22] MEDS ORDERED: allopurinoL 300 MG TAB PO SCH (12:46)
[2023-07-22] MEDS ORDERED: ursodioL 300 MG CAP PO SCH (12:46)
[2023-07-22] MEDS ORDERED: SODIUM BICARBONATE 650 MG TAB PO SCH (13:15)
[2023-07-22] MEDS ORDERED: FUROSEMIDE 40 MG/4 ML VIAL IV SCH (14:00)
[2023-07-22] MEDS ORDERED: FUROSEMIDE INJ 20 MG/2 ML VIAL IV SCH (14:30)
--- NOTE | 2023-07-22 15:40 | Oncology Consultation ---
Date of Consultation July 22, 2023 History of Present Illness Attending Physician: Shakeel Ryder MD Allergies Allergy/AdvReac Type Severity Reaction Status Date / Time Egg Derived Allergy Intermediate RASH WITH Verified 07/03/23 15:31 LARGE QUANTITIES latex Allergy Intermediate Verified 07/03/23 15:31 metformin Allergy Intermediate GI ISSUES Verified 07/03/23 15:31 pollen extracts Allergy Intermediate ITCHY Verified 07/03/23 15:31 EYES, SNEEZING, CONGESTION benzonatate AdvReac Severe Weakness Verified 07/03/23 15:31 [From Raeann Germain] codeine AdvReac Intermediate N/V, Verified 07/03/23 15:31 HYPOTENSTION fentanyl AdvReac Intermediate EXTREME Verified 07/03/23 15:31 NAUSEA; BP DROPS meperidine AdvReac Intermediate N/V, Verified 07/03/23 15:31 HYPOTENSTION morphine AdvReac Intermediate N/V, Verified 07/03/23 15:31 HYPOTENSTION Flu Virus Vaccine Allergy Intermediate AVOIDS DUE Uncoded 07/03/23 15:31 TO EGG ALLERGY NARCOTICS AdvReac Intermediate N/V, Uncoded 07/03/23 15:31 HYPOTENSTION Home Medications Medication Instructions Recorded Confirmed Type alendronate 70 mg tablet (Fosamax) 70 mg PO WK 09/29/18 07/22/23 History allopurinol 300 mg tablet 300 mg PO QAM 09/29/18 07/22/23 History finasteride 5 mg tablet (Proscar) 5 mg PO QAM 09/29/18 07/22/23 History magnesium oxide 400 mg PO QAM 09/29/18 07/22/23 History folic acid 1 mg tablet 1 mg PO DAILY 02/02/19 07/22/23 History cranberry 500 mg capsule 500 mg PO QAM 04/02/19 07/22/23 History meclizine 25 mg tablet 25 mg PO TID PRN Vertigo 04/02/19 07/22/23 History (Medi-Meclizine) loratadine 10 mg tablet (Claritin) 10 mg PO QAM 06/24/19 07/22/23 History calcium carbonate 500 mg-vitamin 1 tab PO DAILY 02/09/21 07/22/23 History D3 5 mcg (200 unit) tablet (Calcium 500 + D) misoprostol 100 mcg tablet 200 mcg PO QAM 02/09/21 07/22/23 History (Cytotec) omega 7-ibm-[id number]-fish oil 1,000 mg 1 cap PO DAILY 02/09/21 07/22/23 History (120 mg-180 mg) capsule (Fish Oil) metoprolol tartrate 25 mg tablet 75 mg (3 x 25 mg) PO QPM #90 tabs 02/13/21 07/22/23 Rx alfuzosin 10 mg tablet,extended 10 mg PO QDD 04/30/21 07/22/23 History release 24 hr diclofenac sodium 75 mg 75 mg PO QAM 04/30/21 07/22/23 History tablet,delayed release omeprazole 20 mg capsule,delayed 20 mg PO DAILY 04/30/21 07/22/23 History release Bifidobacterium infantis 4 mg 4 mg PO DAILY 09/04/22 07/22/23 History capsule (Align) Prevagen 1 tab PO QAM 09/04/22 07/22/23 History acetaminophen 500 mg tablet 500 - 1,000 mg PO Q6H PRN Pain 09/04/22 07/22/23 History (Tylenol Extra Strength) omega-3s 667 [id number] 3 cap PO DAILY 10/07/22 07/22/23 History oil-vitamin D3 250 unit capsule (Dry Eye [place] Benefits) propylene glycol-glycerin 0.6 2 drp ophthalmic (eye) BID 10/07/22 07/22/23 History %-0.6 % eye drops in a dropperette (Soothe Lubricant) aspirin 81 mg tablet,delayed 81 mg PO DAILY 11/18/22 07/22/23 History release melatonin 3 mg tablet 5 mg PO HS PRN SLEEP 11/18/22 07/22/23 History metoprolol tartrate 50 mg tablet 50 mg PO .MIDDAY 11/18/22 07/22/23 History ursodiol 300 mg capsule 900 mg PO BID 11/18/22 07/22/23 History rosuvastatin 10 mg tablet 5 mg PO HS 02/20/23 07/22/23 History albuterol sulfate 90 mcg/actuation 2 puff inhalation Q6H PRN Other 05/05/23 07/22/23 History aerosol inhaler triamcinolone acetonide 0.1 % 1 applic topical DAILY PRN Other 06/14/23 07/22/23 History topical ointment ciprofloxacin HCl 500 mg tablet 500 mg PO BID 07/22/23 07/22/23 History Patient History Medical History (Updated 07/22/23 @ 13:57 by Shakeel Ryder MD) Mass of upper lobe of right lung Nocturnal hypoxia Atelectasis Bronchitis Basal cell carcinoma Lung cancer Left lower lobe pulmonary nodule Hypoxia Solitary pulmonary nodule Right tibial fracture Right tibial fracture Abscess of right shoulder (~09/2020) Macular degeneration Hx of vertigo Hx of basal cell carcinoma Benign prostatic hyperplasia with urinary obstruction Hx of ulcerative colitis S/p colectomy- ileostomy 1990 and 1994 History of IBS Hx of deep venous thrombosis LLE "A LONG TIME AGO" 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 Neurogenic bladder NO DOS [employer] 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 No evidence of thrombus on echo May 2022. TIA (transient ischemic attack) TIA vs complex migraine February 2019 Type 2 diabetes mellitus Left lower lobe pneumonia PVCs (premature ventricular contractions) Asymptomatic per patient History of kidney stones High cholesterol HTN (hypertension) CAD (coronary artery disease) STENT X 1 (2001) AT [facility] Sciatica Enlarged prostate Ileostomy in place History of myocardial infarction STENT X 1 (2001) S/P B/L TKA Stable; Has not had to use NTG since stent placement Surgical History (Updated 07/16/23 @ 00:10 by Deb Dadavid) History of cystoscopy History of lumbar laminectomy Hx of bilateral cataract extraction History of anesthesia reaction SLOW TO WAKE, BREATHING ISSUES, NAUSEA AND VOMITING History of colonoscopy History of cholecystectomy History of ERCP MULTIPLE History of appendectomy History of exploratory laparotomy X2 "COMMON DUCT RECONSTRUCTION" History of arthroplasty of right shoulder Right TSA= 05/24/16= Grade 1 view, MAC#4 at [facility] History of hand surgery RT/LEFT THUMBS History of total bilateral knee replacement Family History Father Myocardial infarction Family/Other Hypertension Nephrolithiasis Sister FH: ovarian cancer Other Family history of breast cancer in mother Social History Smoking Status: Never smoker Second Hand Exposure: Yes (childhood ); Do You Dip or Chew Tobacco: No; Hx Alcohol Use: Yes Alcohol type: wine Alcohol Intake Frequency: Monthly or Less Hx Substance Use: No Preferred Language: Togolese Communication Ability: Effective Visual Impairment: Limited Hearing Ability: Use of Hearing Aid Site Physician Required: No Beliefs That Will Affect Care: None marital status: Current Living Situation: Spouse Current Living Situation Comment: Home 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 Feels Safe at Home: Yes Diet Comment: avoid heavy roughage during the past year weight has: remained stable Assistive Devices: Hearing Aid - Bilateral, Walker and Wheelchair Results & Data Vital Signs (Past 12 Hours) Vital Signs Temp Pulse Resp BP Pulse Ox O2 Del Method 07/22/23 15:07 36.4 C L 62 16 107/62 98 07/22/23 14:37 36.5 C 64 16 104/51 L 93 07/22/23 14:22 37.5 C 66 18 102/53 L 94 07/22/23 14:06 37.5 C 63 17 95/50 L 93 07/22/23 11:30 62 16 109/58 L 93 07/22/23 11:00 64 16 105/58 L 92 07/22/23 10:30 68 19 110/55 L 93 07/22/23 10:29 64 07/22/23 10:23 64 15 109/54 L 07/22/23 10:23 64 17 94 Room Air 07/22/23 07:56 36.7 C 64 17 104/53 L 94 Room Air
[2023-07-22] MEDS ORDERED: TAMSULOSIN HCL 0.4 MG CAP PO SCH (16:30)
--- NOTE | 2023-07-22 20:12 | Discharge Summary ---
Date of Service July 22, 2023 Admission HPI Per Admitting Provider Jordy Tesfaye is an 83-year-old male who presents to the ER with difficulty urinating and urinary urgency. He notes 3 days of urinary urgency with no change in smell or color of his urine. No fevers, chills, CVA tenderness. He has ciprofloxacin to use as needed which she started on Friday and the urgency improved. However this morning at 6:15 AM he was able to pass 50 to 100 cc of urine but then continued to have a strong urge to go around 7 AM and was unable to pass any urine. Associated lower abdominal pain. Due to history of urine retention, strictures and BPH with recent need for hospitalization he and his decided to come to the ER for further evaluation. In the ER he was noted to be pancytopenic. Hemoglobin 6.2 from previous 8.3 in June. He denies any chest pain, dizziness, shortness of breath. His platelets remain low at 19 from previous counts of 24. He denies any active bleeding such as hemoptysis, hematemesis, hematochezia, melena, hematuria. On comparison to previous CT in June he was noted to have diffuse mesenteric edema which is slightly progressed in addition to small amount of ascites. He does report leg edema has been worse over the last week. He denies any shortness of breath, orthopnea, PND, chest pain. Principal Diagnosis Urinary urgency Pancytopenia Hypervolemia Metabolic acidosis with normal anion gap Discharge Exam Constitutional WD/WN, vitals as above ENMT external ear and nose normal, oropharynx normal Cardiovascular Rate/Rhythm: regular rate and regular rhythm Extremities: + pedal edema Gastrointestinal (Abdomen) normal bowel sounds, soft, nontender, no hepatosplenomegaly Discharge Data Allergies Allergy/AdvReac Type Severity Reaction Status Date / Time Egg Derived Allergy Intermediate RASH WITH Verified 07/03/23 15:31 LARGE QUANTITIES latex Allergy Intermediate Verified 07/03/23 15:31 metformin Allergy Intermediate GI ISSUES Verified 07/03/23 15:31 pollen extracts Allergy Intermediate ITCHY Verified 07/03/23 15:31 EYES, SNEEZING, CONGESTION benzonatate AdvReac Severe Weakness Verified 07/03/23 15:31 [From Raeann Germain] codeine AdvReac Intermediate N/V, Verified 07/03/23 15:31 HYPOTENSTION fentanyl AdvReac Intermediate EXTREME Verified 07/03/23 15:31 NAUSEA; BP DROPS meperidine AdvReac Intermediate N/V, Verified 07/03/23 15:31 HYPOTENSTION morphine AdvReac Intermediate N/V, Verified 07/03/23 15:31 HYPOTENSTION Flu Virus Vaccine Allergy Intermediate AVOIDS DUE Uncoded 07/03/23 15:31 TO EGG ALLERGY NARCOTICS AdvReac Intermediate N/V, Uncoded 07/03/23 15:31 HYPOTENSTION Consultations 07/22/23 10:31 Consult Hematology Routine 07/22/23 10:55 ED Decision to Admit Stat Ordered Studies 07/22/23 08:32 CT abd pelvis wo con Stat IMPRESSION: 1. There is a small partially loculated left pleural effusion with associated pleural thickening. This is decreased in size in the interval. There is a punctate focus of gas which appears to be within this loculated pleural effusion . This is indeterminate and could be due to prior intervention or a resolving old hydropneumothorax. A small empyema is considered less likely but not entirely excluded. 2. No evidence for bowel obstruction. 3. Small amount of ascites and diffuse mesenteric edema has slightly progressed. 4. Low density nodularity within the right side of the abdomen is noted. This may represent trapped fluid in the mesentery. Omental soft tissue nodularity is considered less likely but difficult to exclude on this noncontrast study. This bears watching on future examinations. 5. Status post total proctocolectomy with a left lower quadrant ileostomy and a large parastomal hernia. This is similar to the prior study. 6. Mild thickening within the gastric wall proximal small bowel loops, unchanged. This could be due to the patient's diffuse edematous state. A mild gastroenteritis is not excluded. 7. Cirrhosis and splenomegaly again noted. 8. An indeterminate 1.1 cm right renal lesion, unchanged. 9. There is asymmetric thickening within the left anterior bladder base. This could be due to underdistention. However, consider follow-up cystoscopy to exclude the possibility of a bladder lesion. 10. Additional findings as described above. Hospital Course (1) UTI (urinary tract infection): Jordy Tesfaye is an 83-year-old male admitted to [facility] on July 22, 2023 due to urinary urgency. Urine retention was ruled out on CT imaging. Urinalysis was not suggestive of infection however this may be because he started outpatient ciprofloxacin therefore recommend he completes a 5-day course of this. He was incidentally noted to have ongoing pancytopenia with progression of his anemia with a hemoglobin of 6.2. This was treated with 2 units packed red blood cell transfusion. He did not wish to admission as his usual hematology/oncology appointment tomorrow and no active bleeding was suspected therefore this appears reasonable for him to follow-up as his pancytopenia appears to be more of a chronic rather than acute problem. This was discussed with the on-call linotypist Dr. Reyes who agreed with the plan. Basic anemia workup showed no iron/B12/folate deficiency. Reticulocyte percent elevated at 3.5. Ongoing investigations and management per his outpatient linotypist Dr. Bert Patel. Recommend he hold his aspirin due to platelets of 17 unless advised to continue this by his outpatient linotypist. He was also incidentally noted to have a metabolic acidosis with normal anion gap. Suspect this is related to recent IV fluids containing chloride given during his hospitalizations. Recommend starting on sodium bicarb 650 mg twice daily with follow-up basic metabolic panel to be arranged by his primary care physician within the next week. Ideally this could be performed if his repeat complete blood count with his linotypist tomorrow - although no significant change would be expected within this timeframe. He was also incidentally noted to be hypervolemic with increased ascites and mes enteric edema on CT in addition to leg edema. No significant pulmonary edema. Recommend starting Lasix 20 mg p.o. daily to help with this in addition to his elevated potassium levels. (2) Pancytopenia: (3) Metabolic acidosis, normal anion gap (NAG): (4) Hypervolemia: (5) Chronic ITP (idiopathic thrombocytopenia): (6) Mass of upper lobe of right lung: (7) HTN (hypertension): (8) BPH NOS w ur obs/LUTS: (9) Hyperkalemia: (10) Sclerosing cholangitis: (11) Abdominal ascites: Total Time Total Time Spent Total Time Spent (In Minutes): 40 Discharge Plan Discharge Items Patient Disposition: Home - Self-Care Reason For Visit: Anemia, urinary urgency Discharge Diagnosis: Pancytopenia Hypervolemic state Metabolic acidosis without anion gap Activity: Resume your previous activity Non-emergency contact: Primary Care Provider and Oncologist Call non-emergency contact if: you have any medication questions and your symptoms worsen Follow-up/Referrals: Tom Bucio MD [Primary Care Provider] - Diet: Regular Addtl Attending Provider Instructions: You were admitted to [facility] on July 22, 2023 due to urinary urgency. Urine retention was ruled out on CT imaging. Urinalysis was not suggestive of infection however this may be because you have already started ciprofloxacin and recommend continuing on a 5-day course. You were incidentally noted to have ongoing pancytopenia (low red blood cells, white blood cells and platelets) with progression of your anemia with a hemoglobin of 6.2. This was treated with 2 units packed red blood cell transfusion. Given you did not want to miss your hematology/oncology appointment tomorrow and is no active bleeding was noted and appears reasonable to discharge you at this time as long as you get follow-up labs with your linotypist tomorrow. Basic anemia workup showed no iron, B12 or folate deficiency. Retic ulocyte percent 3.5. Ongoing care of your anemia Due to excessively low platelets recommend holding aspirin until following up with your linotypist tomorrow. You were also incidentally noted to have a non anion gap metabolic acidosis. Suspect this is due to recent hospitalizations likely requiring intravenous fluids for medications with chloride. Recommend starting on sodium bicarb 650 mg twice daily as prescribed with follow-up basic metabolic panel with your primary care doctor within the next week. Ideally this will be performed with your repeat blood counts tomorrow with your linotypist. You also noticed to have excessive fluid. This was treated with intravenous Lasix during her short stay. Recommend continuing on oral Lasix on discharge with ongoing management per your primary care doctor. This should also help with your mildly elevated potassium levels. Pending Studies at Discharge: No Stand-Alone Forms: My [facility], Smoking Cessation Medications and DC Order Prescriptions: New furosemide 20 mg tablet 20 mg PO DAILY Qty: 30 0RF sodium bicarbonate 650 mg tablet 650 mg PO BID Qty: 60 0RF Continued Align 4 mg capsule 4 mg PO DAILY Patient Comments: as needed with antibiotics acetaminophen [Tylenol Extra Strength] 500 mg tablet 500 - 1,000 mg PO Q6H PRN (Reason: Pain) Prevagen 1 tab PO QAM albuterol sulfate 90 mcg/actuation HFA aerosol inhaler 2 puff inhalation Q6H PRN (Reason: Other) omeprazole 20 mg capsule,delayed release(DR/EC) 20 mg PO DAILY diclofenac sodium 75 mg tablet,delayed release (DR/EC) 75 mg PO QAM alfuzosin 10 mg tablet extended release 24 hr 10 mg PO QDD Rx Instructions: administer after the same meal each day aspirin 81 mg tablet,delayed release (DR/EC) 81 mg PO DAILY rosuvastatin 10 mg tablet 5 mg PO HS folic acid 1 mg tablet 1 mg PO DAILY alendronate [Fosamax] 70 mg Tablet 70 mg PO WK Patient Comments: TAKES ON FRI. Rx Instructions: WEDN[facility] allopurinol 300 mg Tablet 300 mg PO QAM finasteride [Proscar] 5 mg Tablet 5 mg PO QAM magnesium oxide 400 mg magnesium Tablet 400 mg PO QAM ursodiol 300 mg capsule 900 mg PO BID meclizine [Medi-Meclizine] 25 mg Tablet 25 mg PO TID PRN (Reason: Vertigo) cranberry 500 mg Capsule 500 mg PO QAM loratadine [Claritin] 10 mg Tablet 10 mg PO QAM misoprostol [Cytotec] 100 mcg Tablet 200 mcg PO QAM calcium carbonate-vitamin D3 [Calcium 500 + D] 500 mg(1,250mg) -200 unit Tablet 1 tab PO DAILY omega 7-fop-kik-fish oil [Fish Oil] 1,000 mg (120 mg-180 mg) Capsule 1 cap PO DAILY metoprolol tartrate 25 mg Tablet 75 mg PO QPM Qty: 90 0RF Rx Instructions: TOTAL DOSE 75 MG--TAKES WITH 50 MG TAB. melatonin 3 mg tablet 5 mg PO HS PRN (Reason: SLEEP) Soothe Lubricant 0.6-0.6 % Dropperette 2 drp OPHTHALMIC (EYE) BID Dry Eye [place] Benefits 667-250 mg-unit Capsule 3 cap PO DAILY metoprolol tartrate 50 mg tablet 50 mg PO .MIDDAY triamcinolone acetonide 0.1 % ointment 1 applic TOPICAL DAILY PRN (Reason: Other) ciprofloxacin HCl 500 mg Tablet 500 mg PO BID Discharge Orders: Discharge Order (Routine); Ordered 07/22/23 Ordered By: Shakeel Ryder Admission Data Admit Date/Time: 07/22/23 10:35 Attending Provider: Shakeel Ryder Admit Provider: Shakeel Ryder Primary Care Provider: Tom Bucio Other Providers: Erlin Reyes; Shakeel Ryder Coding Level of Care Code INP/OBS EV SAME DAY LV 3,85MIN Diagnoses UTI (urinary tract infection) N39.0 Pancytopenia D61.818 Metabolic acidosis, normal anion gap (NAG) E87.20 Hypervolemia E87.70 Chronic ITP (idiopathic thrombocytopenia) D69.3 Mass of upper lobe of right lung R91.8 HTN (hypertension) I10 BPH NOS w ur obs/LUTS N40.1 Hyperkalemia E87.5 Sclerosing cholangitis K83.09 Abdominal ascites R18.8
[2023-07-22] MEDS ORDERED: CIPROFLOXACIN 500 MG TAB PO SCH (21:00)
[2023-07-22] MEDS ORDERED: ROSUVASTATIN CALCIUM 5 MG TAB PO SCH (21:00)
[2023-07-23] MEDS ORDERED: FOLIC ACID 1 MG TAB PO SCH (09:00)
[2023-07-23] MEDS ORDERED: FINASTERIDE 5 MG TAB PO SCH (09:00)
[2023-07-23] MEDS ORDERED: OMEGA-3 (PURIFIED FISH OIL) 1 GM CAP PO SCH (09:00)
[2023-07-23] MEDS ORDERED: MAGNESIUM OXIDE 400 MG TAB PO SCH (09:00)
[2023-07-23] MEDS ORDERED: LORATADINE 10 MG TAB PO SCH (09:00)
== END 2023-07-22 20:52 | disposition home or self-care (01) ==
LOC: ED 07:54 → INTOOBSV 10:35 → EDINP 10:35

== ENCOUNTER 2023-08-11 09:39 | Inpatient (IN) ==
--- NOTE | 2023-08-11 10:10 | Emergency Department Note ---
Impression & Plan Generalized weakness, Acute confusion, Headache, Anemia, Hyperglycemia ED Provider Note ED Provider Note NAME: KENDRA HUERTA AGE:83 SEX: Male : 1940 ARRIVES VIA: Private vehicle INFORMANT: Patient, family ED PROVIDER(s): Roro Robertson DO CHIEF COMPLAINT: Generalized weakness, headache, confusion HPI: This is an 83-year-old male with a complicated past medical history who presents with due to concern for worsening weakness, confusion, and complaints of headache this morning. Patient's states yesterday he seemed more fatigued and slept more than usual but did not have any focal complaints, and was otherwise eating and drinking. She states this morning when he woke up at 7 AM he seemed weaker and more dizzy. She states that she got him to the table via wheelchair to try and eat and he hardly had anything to eat or drink. She states he then began complaining of a headache. She states throughout the morning he seemed to be getting worse including seeming less alert and perhaps confused. Family concern given recent addition of sodium and bicarbonate and daily Lasix to his regimen. Patient also has a history of significant anemia and does follow with heme-onc. Patient states he still feels a headache, denies blurred vision, states he does feel dizzy, denies nausea. He denies chest pain or abdominal pain. feels lower extremity edema is unchanged. also states he was seen and evaluated by urology in the office last week and urinalysis did not reveal any infection. PAST MEDICAL HISTORY:See Below PAST SURGICAL HISTORY:See Below FAMILY HISTORY:See Below SOCIAL HISTORY:See Below HOME MEDICATIONS:See Below ALLERGIES:See Below VITALS:See Below PHYSICAL EXAMINATION: GENERAL: alert, unwell appearing, well nourished, no distress, non-toxic EYE EXAM: normal conjunctiva, PERRL and EOM's grossly intact OROPHARYNX: no exudate, no erythema, lips, buccal mucosa, and tongue normal and mucous membranes are mildly dry NECK: supple, no nuchal rigidity, no adenopathy, non-tender LUNGS: Clear to auscultation. Normal chest wall mechanics, no w/r/r HEART: no murmurs, S1 normal and S2 normal ABDOMEN: abdomen soft, non-tender, normo-active bowel sounds, no masses, no rebound or guarding. Multiple well-healed surgical scars on the abdominal wall, ostomy noted in the left mid abdomen. : scrotal and penile edema noted BACK: Back is symmetrical on inspection and there is no deformity, no midline tenderness, no CVA tenderness. SKIN: no rashes, petechiae, orbruising UPPER EXTREMITIES: upper extremities are grossly normal. FROM, nml pulses b/l. LOWER EXTREMITIES: 3+ b/l pitting edema. FROM, nml pulses b/l. NEURO EXAM: Normal sensorium, cranial nerves II-XII grossly intact, normal speech, no facial droop,nogross weakness of arms, no gross weakness of legs. Gross sensation intact. No ataxia. Vital Signs: reviewed and remarkable Differential Diagnosis: dehydration, stroke, anemia, hypoglycemia, hyponatremia, hypernatremia, urinary tract infection, pneumonia, bronchitis, sepsis, gastroenteritis, additional abdominal pathology, metabolic abnormalities, as well as others were considered MEDICAL DECISION MAKING: This is an 83-year-old male with complicated past medical history who presents due to increased weakness, and confusion as noted by family. Patient noted to be bradycardic, however afebrile and vital signs stable. Labs drawn and sent, IV established, EKG and chest ray performed bedside interpreted by me and patient monitored telemetry. Patient would respond to his voice and could answer a few simple yes/no questions. Patient sent for CT of the head which was reassuring. Chest x-ray unchanged compared to prior. H&H lower compared to prior, thrombocytopenia stable compared to prior. Patient given small IV fluid bolus of 250 mL. After discovery upon attempt at straight cath to obtain urine specimen of purulent discharge noted from the penile tissue which was sent for culture, empiric antibiotics were added. No urine specimen was able to be obtained. Patient with prior urethral trauma. Patient and updated several times. Patient made hemodynamically stable, he was given additional small fluid bolus. Type and screen had been added, and patient was crossed for 1 unit of PRBCs due to worsening anemia, with history of thrombocytopenia, CKD, and now an elevated troponin. Patient's troponin elevation is new compared to prior, renal function today appears stable with a creatinine of 1.2. Unclear if patient's anemia could be contributing to his weakness in the midst of multiple ongoing medical problems. Case discussed with [facility] hospitalist team for additional evaluation and management. Patient's did sign blood transfusion consent form at bedside. Consultation(s): 1150: DIsucssed with Dr. Rodriguez, [facility] hospitalist, for additional evaluation and management. ER Treatment Provided: See below 1151: Blood consent signed at bedside by family. Diagnostics Interpreted By Me: -ECG: Sinus bradycardia at 53 with a first-degree AV block, normal axis, normal intervals, nonspecific ST/T wave change -Cardiac Monitoring: An order was placed for continuous cardiac monitoring. The monitor shows a rate of 55 with sinus bradycardia rhythm. -Laboratory studies: As stated above and show below. -Imaging studies: X-ray Chest: A single view study of the chest was reviewed and was negative for cardiomegaly, focal infiltrate, pulmonary edema, or wide mediastinum. Left pleural effusion again noted. Triage Nursing Note Reviewed Prior/Outside Records Reviewed Procedures: [] Critical Care: Critical care of 42 min performed to assess and manage high likelihood of life- threatening altered mental status and anemia, involving labs and imaging performed with assessment to evaluate altered mental status and anemia diagnosis with frequent reassessment. This time includes bedside time, treatment discussions with patient/family/consultants, documentation time and excludes procedure time. Past Med/Surg History Medical History (Updated 08/11/23 @ 17:02 by Roro Robertson DO) Metabolic acidosis Mass of upper lobe of right lung Nocturnal hypoxia Atelectasis Bronchitis Basal cell carcinoma Lung cancer Left lower lobe pulmonary nodule Hypoxia Solitary pulmonary nodule Right tibial fracture Right tibial fracture Abscess of right shoulder (~09/2020) Macular degeneration Hx of vertigo Hx of basal cell carcinoma Benign prostatic hyperplasia with urinary obstruction Hx of ulcerative colitis S/p colectomy- ileostomy 1990 and 1994 History of IBS Hx of deep venous thrombosis LLE "A LONG TIME AGO" 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 Neurogenic bladder NO DOS S[employer] 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 No evidence of thrombus on echo May 2022. TIA (transient ischemic attack) TIA vs complex migraine February 2019 Type 2 diabetes mellitus Left lower lobe pneumonia PVCs (premature ventricular contractions) Asymptomatic per patient History of kidney stones High cholesterol HTN (hypertension) CAD (coronary artery disease) STENT X 1 (2001) AT [facility] Sciatica Enlarged prostate Ileostomy in place History of myocardial infarction STENT X 1 (2001) S/P B/L TKA Stable; Has not had to use NTG since stent placement Surgical History (Updated 08/08/23 @ 00:09 by Deb Dunaway) History of cystoscopy History of lumbar laminectomy Hx of bilateral cataract extraction History of anesthesia reaction SLOW TO WAKE, BREATHING ISSUES, NAUSEA AND VOMITING History of colonoscopy History of cholecystectomy History of ERCP MULTIPLE History of appendectomy History of exploratory laparotomy X2 "COMMON DUCT RECONSTRUCTION" History of arthroplasty of right shoulder Right TSA= 05/24/16= Grade 1 view, MAC#[address] [facility] History of hand surgery RT/LEFT THUMBS History of total bilateral knee replacement Family History Father Myocardial infarction Family/Other Hypertension Nephrolithiasis Sister FH: ovarian cancer Other Family history of breast cancer in mother Social History Smoking Status: Never smoker Second Hand Exposure: Yes (childhood ); Do You Dip or Chew Tobacco: No; Hx Alcohol Use: Yes Alcohol type: wine Alcohol Intake Frequency: Monthly or Less Hx Substance Use: No Preferred Language: Citizen Of [place] Communication Ability: Effective Visual Impairment: Limited Hearing Ability: Use of Hearing Aid Mailroom Personnel Required: No Beliefs That Will Affect Care: None marital status: Current Living Situation: Spouse Current Living Situation Comment: Home current occupational status: retired current occupation: [employer] Feels Safe at Home: Yes Diet Comment: avoid heavy roughage during the past year weight has: remained stable Assistive Devices: Hearing Aid - Bilateral, Walker and Wheelchair Allergies Allergies Allergy/AdvReac Type Severity Reaction Status Date / Time Egg Derived Allergy Intermediate RASH WITH Verified 08/11/23 12:21 LARGE QUANTITIES latex Allergy Intermediate Unknown Verified 08/11/23 12:21 metformin Allergy Intermediate GI ISSUES Verified 08/11/23 12:21 pollen extracts Allergy Intermediate ITCHY Verified 08/11/23 12:21 EYES, SNEEZING, CONGESTION benzonatate AdvReac Severe Weakness Verified 08/11/23 12:21 [From Raeann Germain] codeine AdvReac Intermediate N/V, Verified 08/11/23 12:21 HYPOTENSTION fentanyl AdvReac Intermediate EXTREME Verified 08/11/23 12:21 NAUSEA; BP DROPS meperidine AdvReac Intermediate N/V, Verified 08/11/23 12:21 HYPOTENSTION morphine AdvReac Intermediate N/V, Verified 08/11/23 12:21 HYPOTENSTION Flu Virus Vaccine Allergy Intermediate AVOIDS DUE Uncoded 08/11/23 12:21 TO EGG ALLERGY NARCOTICS AdvReac Intermediate N/V, Uncoded 08/11/23 12:21 HYPOTENSTION Home Meds Home Medications Medication Instructions Recorded Confirmed alendronate 70 mg tablet (Fosamax) 70 mg PO WK 09/29/18 08/11/23 allopurinol 300 mg tablet 300 mg PO QAM 09/29/18 08/11/23 finasteride 5 mg tablet (Proscar) 5 mg PO QAM 09/29/18 08/11/23 magnesium oxide 400 mg PO QAM 09/29/18 08/11/23 folic acid 1 mg tablet 1 mg PO DAILY 02/02/19 08/11/23 cranberry 500 mg capsule 500 mg PO QAM 04/02/19 08/11/23 meclizine 25 mg tablet 25 mg PO TID PRN Vertigo 04/02/19 08/11/23 (Medi-Meclizine) loratadine 10 mg tablet (Claritin) 10 mg PO QAM 06/24/19 08/11/23 calcium carbonate 500 mg-vitamin 1 tab PO DAILY 02/09/21 08/11/23 D3 5 mcg (200 unit) tablet (Calcium 500 + D) misoprostol 100 mcg tablet 200 mcg PO QAM 02/09/21 08/11/23 (Cytotec) omega 1-mue-wyd-fish oil 1,000 mg 1 cap PO DAILY 02/09/21 08/11/23 (120 mg-180 mg) capsule (Fish Oil) alfuzosin 10 mg tablet,extended 10 mg PO QDD 04/30/21 08/11/23 release 24 hr diclofenac sodium 75 mg 75 mg PO QAM 04/30/21 08/11/23 tablet,delayed release omeprazole 20 mg capsule,delayed 20 mg PO DAILY 04/30/21 08/11/23 release Bifidobacterium infantis 4 mg 4 mg PO DAILY 09/04/22 08/11/23 capsule (Align) Prevagen 1 tab PO QAM 09/04/22 08/11/23 acetaminophen 500 mg tablet 500 - 1,000 mg PO Q6H PRN Pain 09/04/22 08/11/23 (Tylenol Extra Strength) omega-3s 667 ie-qla-she-fish 3 cap PO DAILY 10/07/22 08/11/23 oil-vitamin D3 250 unit capsule (Dry Eye [place] Benefits) propylene glycol-glycerin 0.6 2 drp ophthalmic (eye) BID 10/07/22 08/11/23 %-0.6 % eye drops in a dropperette (Soothe Lubricant) aspirin 81 mg tablet,delayed 81 mg PO DAILY 11/18/22 08/11/23 release melatonin 3 mg tablet 5 mg PO HS PRN SLEEP 11/18/22 08/11/23 metoprolol tartrate 50 mg tablet 50 mg PO .MIDDAY 11/18/22 08/11/23 ursodiol 300 mg capsule 900 mg PO BID 11/18/22 08/11/23 rosuvastatin 10 mg tablet 5 mg PO HS 02/20/23 08/11/23 albuterol sulfate 90 mcg/actuation 2 puff inhalation Q6H PRN Other 05/05/23 08/11/23 aerosol inhaler triamcinolone acetonide 0.1 % 1 applic topical DAILY PRN Other 06/14/23 08/11/23 topical ointment ciprofloxacin HCl 500 mg tablet 500 mg PO DIRECTED PRN for PSC 07/22/23 08/11/23 Previous Rx's Medication Instructions Recorded metoprolol tartrate 25 mg tablet 75 mg (3 x 25 mg) PO QPM #90 tabs 02/13/21 furosemide 20 mg tablet 20 mg PO DAILY #30 tabs 07/22/23 sodium bicarbonate 650 mg tablet 650 mg PO BID #60 tabs 07/22/23 Results & Data (ED) Vital Signs Vital Signs - 24 hr 08/11/23 09:46 08/11/23 10:15 08/11/23 10:15 Pulse Rate 54 L 55 L Pulse Rate [Apical] Pulse Rate from SpO2 Sensor 53 L Respiratory Rate 16 12 Respiratory Effort / Characteristics Non-Labored Respiratory Depth Normal Blood Pressure 104/58 L 111/54 L Blood Pressure [Left Arm] Blood Pressure Mean 73 73 Blood Pressure Mean [Left Arm] Pulse Oximetry 98 93 Oxygen Delivery Method Room Air Sepsis Recent Fever Within 48 Hours No Sepsis New/Unexplained Change in Mental Status N/A Sepsis Action Taken by Nursing No Action Required 08/11/23 10:20 08/11/23 10:20 08/11/23 10:33 Pulse Rate 59 L 57 L 54 L Pulse Rate [Apical] Pulse Rate from SpO2 Sensor 57 L 54 L Respiratory Rate 17 7 L Respiratory Effort / Characteristics Respiratory Depth Blood Pressure Blood Pressure [Left Arm] Blood Pressure Mean Blood Pressure Mean [Left Arm] Pulse Oximetry 95 96 Oxygen Delivery Method Sepsis Recent Fever Within 48 Hours Sepsis New/Unexplained Change in Mental Status Sepsis Action Taken by Nursing 08/11/23 10:40 08/11/23 10:45 08/11/23 10:45 Pulse Rate 55 L 55 L Pulse Rate [Apical] Pulse Rate from SpO2 Sensor 55 L 54 L Respiratory Rate 13 14 Respiratory Effort / Characteristics Respiratory Depth Blood Pressure 104/55 L Blood Pressure [Left Arm] Blood Pressure Mean 84 Blood Pressure Mean [Left Arm] Pulse Oximetry 97 93 Oxygen Delivery Method Sepsis Recent Fever Within 48 Hours Sepsis New/Unexplained Change in Mental Status Sepsis Action Taken by Nursing 08/11/23 10:50 08/11/23 11:00 08/11/23 11:00 Pulse Rate 52 L Pulse Rate [Apical] 53 L Pulse Rate from SpO2 Sensor 52 L Respiratory Rate 14 18 Respiratory Effort / Characteristics Respiratory Depth Blood Pressure Blood Pressure [Left Arm] 104/51 L Blood Pressure Mean Blood Pressure Mean [Left Arm] 68 Pulse Oximetry 97 97 96 Oxygen Delivery Method Room Air Sepsis Recent Fever Within 48 Hours Sepsis New/Unexplained Change in Mental Status Sepsis Action Taken by Nursing 08/11/23 11:00 08/11/23 11:00 08/11/23 11:00 Pulse Rate 52 L Pulse Rate [Apical] Pulse Rate from SpO2 Sensor 53 L Respiratory Rate 15 Respiratory Effort / Characteristics Respiratory Depth Blood Pressure 104/51 L Blood Pressure [Left Arm] Blood Pressure Mean 78 Blood Pressure Mean [Left Arm] Pulse Oximetry 96 96 Oxygen Delivery Method Sepsis Recent Fever Within 48 Hours Sepsis New/Unexplained Change in Mental Status Sepsis Action Taken by Nursing 08/11/23 11:10 08/11/23 11:15 08/11/23 11:20 Pulse Rate 55 L 54 L Pulse Rate [Apical] 50 L Pulse Rate from SpO2 Sensor 54 L 53 L Respiratory Rate 12 18 13 Respiratory Effort / Characteristics Respiratory Depth Blood Pressure Blood Pressure [Left Arm] 101/50 L Blood Pressure Mean Blood Pressure Mean [Left Arm] 67 Pulse Oximetry 97 95 96 Oxygen Delivery Method Sepsis Recent Fever Within 48 Hours Sepsis New/Unexplained Change in Mental Status Sepsis Action Taken by Nursing 08/11/23 11:27 08/11/23 11:27 08/11/23 11:30 Pulse Rate 55 L Pulse Rate [Apical] Pulse Rate from SpO2 Sensor 55 L Respiratory Rate 11 L Respiratory Effort / Characteristics Respiratory Depth Blood Pressure 105/48 L 101/50 L Blood Pressure [Left Arm] Blood Pressure Mean 77 71 Blood Pressure Mean [Left Arm] Pulse Oximetry 96 Oxygen Delivery Method Sepsis Recent Fever Within 48 Hours Sepsis New/Unexplained Change in Mental Status Sepsis Action Taken by Nursing 08/11/23 11:30 08/11/23 11:40 08/11/23 11:45 Pulse Rate 54 L 52 L Pulse Rate [Apical] Pulse Rate from SpO2 Sensor 54 L 53 L Respiratory Rate 11 L 11 L Respiratory Effort / Characteristics Respiratory Depth Blood Pressure 100/48 L Blood Pressure [Left Arm] Blood Pressure Mean 57 Blood Pressure Mean [Left Arm] Pulse Oximetry 95 95 Oxygen Delivery Method Sepsis Recent Fever Within 48 Hours Sepsis New/Unexplained Change in Mental Status Sepsis Action Taken by Nursing 08/11/23 11:45 08/11/23 11:50 08/11/23 12:00 Pulse Rate 51 L 52 L Pulse Rate [Apical] Pulse Rate from SpO2 Sensor 52 L 51 L Respiratory Rate 10 L 11 L Respiratory Effort / Characteristics Respiratory Depth Blood Pressure 103/49 L Blood Pressure [Left Arm] Blood Pressure Mean 62 Blood Pressure Mean [Left Arm] Pulse Oximetry 96 96 Oxygen Delivery Method Sepsis Recent Fever Within 48 Hours Sepsis New/Unexplained Change in Mental Status Sepsis Action Taken by Nursing 08/11/23 12:00 08/11/23 12:05 08/11/23 12:10 Pulse Rate 55 L 53 L Pulse Rate [Apical] 51 L Pulse Rate from SpO2 Sensor 46 L 54 L Respiratory Rate 16 18 13 Respiratory Effort / Characteristics Respiratory Depth Blood Pressure Blood Pressure [Left Arm] 103/49 L Blood Pressure Mean Blood Pressure Mean [Left Arm] 67 Pulse Oximetry 97 97 97 Oxygen Delivery Method Sepsis Recent Fever Within 48 Hours Sepsis New/Unexplained Change in Mental Status Sepsis Action Taken by Nursing 08/11/23 12:16 08/11/23 12:16 08/11/23 12:20 Pulse Rate 52 L 51 L Pulse Rate [Apical] Pulse Rate from SpO2 Sensor 52 L 52 L Respiratory Rate 12 13 Respiratory Effort / Characteristics Respiratory Depth Blood Pressure 110/46 L Blood Pressure [Left Arm] Blood Pressure Mean 69 Blood Pressure Mean [Left Arm] Pulse Oximetry 97 96 Oxygen Delivery Method Sepsis Recent Fever Within 48 Hours Sepsis New/Unexplained Change in Mental Status Sepsis Action Taken by Nursing 08/11/23 12:32 08/11/23 12:33 08/11/23 12:33 Pulse Rate 51 L 52 L Pulse Rate [Apical] Pulse Rate from SpO2 Sensor 51 L 48 L Respiratory Rate 12 14 Respiratory Effort / Characteristics Respiratory Depth Blood Pressure 109/58 L Blood Pressure [Left Arm] Blood Pressure Mean 86 Blood Pressure Mean [Left Arm] Pulse Oximetry 96 96 Oxygen Delivery Method Sepsis Recent Fever Within 48 Hours Sepsis New/Unexplained Change in Mental Status Sepsis Action Taken by Nursing 08/11/23 12:40 08/11/23 12:50 08/11/23 12:52 Pulse Rate 50 L 48 L Pulse Rate [Apical] 49 L Pulse Rate from SpO2 Sensor 49 L 48 L Respiratory Rate 12 9 L 24 Respiratory Effort / Characteristics Respiratory Depth Blood Pressure Blood Pressure [Left Arm] 109/58 L Blood Pressure Mean Blood Pressure Mean [Left Arm] 75 Pulse Oximetry 96 95 95 Oxygen Delivery Method Sepsis Recent Fever Within 48 Hours Sepsis New/Unexplained Change in Mental Status Sepsis Action Taken by Nursing Laboratory Data 08/11/23 10:00 08/11/23 12:21 Lab Results 08/11/23 08/11/23 08/11/23 Range/Units 09:55 10:00 10:02 WBC 2.13 L (4.8-10.8) K/ul RBC 1.78 L (4.70-6.10) M/uL Hgb 7.1 L (14.0-18.0) g/dl POC Hgb (14.0-18.0) g/dl Hct 21.5 L (42.0-52.0) % POC Hct (42-52) % MCV 120.8 H (80.0-100.0) fL MCH 39.9 H (25.0-34.0) pg MCHC 33.0 (32.0-36.0) g/dL RDW Std Deviation 93.3 H (36.4-46.3) fL RDW Coeff of Chani 21.2 H (11.5-14.5) % Plt Count 20 L* (130-400) K/uL Immature Gran % (Auto) 0.5 % Neut % (Auto) 71.8 % Lymph % (Auto) 20.7 % [place] % (Auto) 6.1 % Eos % (Auto) 0.9 % Baso % (Auto) 0.0 % Neut # (Auto) 1.53 (1.40-6.50) K/uL Lymph # (Auto) 0.44 L (1.20-3.40) K/uL [place] # (Auto) 0.13 (0.11-0.59) K/uL Eos # (Auto) 0.02 (0.00-0.50) K/uL Baso # (Auto) 0.00 (0.00-0.20) K/uL Immature Gran # (Auto) 0.01 (0.01-0.20) K/uL Polychromasia 1+ Anisocytosis Present Macrocytosis Present Tear Drop Cells 1+ Ovalocytes 2+ POC Sodium (135-144) mmol/L Sodium 137 (136-145) mmol/L POC Potassium (3.3-5.0) mmol/L Potassium 5.6 H (3.5-5.1) mmol/L POC Chloride (101-112) mmol/L Chloride 116 H (98-107) mmol/L Carbon Dioxide 18 L (21-32) mmol/L POC Total CO2 (24-31) mmol/L Anion Gap 3 (3-11) POC Anion Gap (16-25) mmol/L POC BUN (7-18) mg/dl BUN 54 H (6-23) mg/dl Creatinine 1.21 (0.6-1.4) mg/dl POC Creatinine (0.6-1.3) mg/dl Est Cr Clr Drug Dosing Not Reportable Est GFR ( Amer) 62.9 ml/min Est GFR (Non-Af Amer) 54.3 ml/min BUN/Creatinine Ratio 44.6 H (10-20) Glucose 236 H (70-99(Fasting)) mg/dl POC Glucose 237 H (70-99) mg/dl POC Glucose (other) (70-99) mg/dl Osmolality (280-300) mOsm/kg Lactate (0.4-2.0) mmol/L Calcium 9.1 (8.6-10.3) mg/dl POC Ioniz Calcium [place] (1.12-1.32) mmol/l Magnesium 1.8 (1.7-2.4) mg/dl Total Bilirubin 2.0 H (0.2-1.0) mg/dl Direct Bilirubin TNP AST 33 (13-39) U/L ALT 24 (7-52) U/L Alkaline Phosphatase 144 H (34-104) U/L Troponin I High Sens 20.9 H (0-20) pg/ml Total Protein 5.7 L (6.0-8.3) gm/dl Albumin 2.5 L (3.4-5.0) gm/dl Procalcitonin Cancelled Adenovirus (PCR) (NotDetected) B. pertussis DNA (PCR) (NotDetected) B.parapertussis DNA PCR (NotDetected) Lyme Disease IgG Ab (Negative) Lyme Disease IgM Ab (Negative) C. pneumoniae DNA (PCR) (NotDetected) Coronavirus OC43 (PCR) (NotDetected) Coronavirus HKU1 (PCR) (NotDetected) Coronavirus 229E (PCR) (NotDetected) SARS-CoV-2 (PCR) (NotDetected) Coronavirus NL63 (PCR) (NotDetected) Human Metapneumovir PCR (NotDetected) Influenza Type A (PCR) (NotDetected) Influenza Type B (PCR) (NotDetected) M. pneumoniae (PCR) (NotDetected) Parainfluenza 1 (PCR) (NotDetected) Parainfluenza 2 (PCR) (NotDetected) Parainfluenza 3 (PCR) (NotDetected) Parainfluenza 4 (PCR) (NotDetected) RSV (PCR) (NotDetected) Entero/Rhino (PCR) (NotDetected) Blood Type O Positive Antibody Screen POSITIVE A Antibody Identification Anti-K Antibody ID Comment Crossmatch 08/11/23 08/11/23 08/11/23 Range/Units 10:02 10:06 10:36 WBC (4.8-10.8) K/ul RBC (4.70-6.10) M/uL Hgb (14.0-18.0) g/dl POC Hgb 8.2 L (14.0-18.0) g/dl Hct (42.0-52.0) % POC Hct 24 L (42-52) % MCV (80.0-100.0) fL MCH (25.0-34.0) pg MCHC (32.0-36.0) g/dL RDW Std Deviation (36.4-46.3) fL RDW Coeff of Chani (11.5-14.5) % Plt Count (130-400) K/uL Immature Gran % (Auto) % Neut % (Auto) % Lymph % (Auto) % [place] % (Auto) % Eos % (Auto) % Baso % (Auto) % Neut # (Auto) (1.40-6.50) K/uL Lymph # (Auto) (1.20-3.40) K/uL [place] # (Auto) (0.11-0.59) K/uL Eos # (Auto) (0.00-0.50) K/uL Baso # (Auto) (0.00-0.20) K/uL Immature Gran # (Auto) (0.01-0.20) K/uL Polychromasia Anisocytosis Macrocytosis Tear Drop Cells Ovalocytes POC Sodium 141 (135-144) mmol/L Sodium (136-145) mmol/L POC Potassium 5.6 H (3.3-5.0) mmol/L Potassium (3.5-5.1) mmol/L POC Chloride 116 H (101-112) mmol/L Chloride (98-107) mmol/L Carbon Dioxide (21-32) mmol/L POC Total CO2 18 L (24-31) mmol/L Anion Gap (3-11) POC Anion Gap 13.0 L (16-25) mmol/L POC BUN 60 H (7-18) mg/dl BUN (6-23) mg/dl Creatinine (0.6-1.4) mg/dl POC Creatinine 1.2 (0.6-1.3) mg/dl Est Cr Clr Drug Dosing Est GFR ( Amer) ml/min Est GFR (Non-Af Amer) ml/min BUN/Creatinine Ratio (10-20) Glucose (70-99(Fasting)) mg/dl POC Glucose (70-99) mg/dl POC Glucose (other) 224 H (70-99) mg/dl Osmolality 317 H (280-300) mOsm/kg Lactate 1.5 (0.4-2.0) mmol/L Calcium (8.6-10.3) mg/dl POC Ioniz Calcium [place] 1.41 H (1.12-1.32) mmol/l Magnesium (1.7-2.4) mg/dl Total Bilirubin (0.2-1.0) mg/dl Direct Bilirubin AST (13-39) U/L ALT (7-52) U/L Alkaline Phosphatase (34-104) U/L Troponin I High Sens (0-20) pg/ml Total Protein (6.0-8.3) gm/dl Albumin (3.4-5.0) gm/dl Procalcitonin 0.09 Adenovirus (PCR) (NotDetected) B. pertussis DNA (PCR) (NotDetected) B.parapertussis DNA PCR (NotDetected) Lyme Disease IgG Ab Negative (Negative) Lyme Disease IgM Ab Negative (Negative) C. pneumoniae DNA (PCR) (NotDetected) Coronavirus OC43 (PCR) (NotDetected) Coronavirus HKU1 (PCR) (NotDetected) Coronavirus 229E (PCR) (NotDetected) SARS-CoV-2 (PCR) (NotDetected) Coronavirus NL63 (PCR) (NotDetected) Human Metapneumovir PCR (NotDetected) Influenza Type A (PCR) (NotDetected) Influenza Type B (PCR) (NotDetected) M. pneumoniae (PCR) (NotDetected) Parainfluenza 1 (PCR) (NotDetected) Parainfluenza 2 (PCR) (NotDetected) Parainfluenza 3 (PCR) (NotDetected) Parainfluenza 4 (PCR) (NotDetected) RSV (PCR) (NotDetected) Entero/Rhino (PCR) (NotDetected) Blood Type Antibody Screen Antibody Identification Anti-c Antibody ID Comment Crossmatch See Detail 08/11/23 08/11/23 08/11/23 Range/Units 10:43 11:08 12:21 WBC (4.8-10.8) K/ul RBC (4.70-6.10) M/uL Hgb (14.0-18.0) g/dl POC Hgb (14.0-18.0) g/dl Hct (42.0-52.0) % POC Hct (42-52) % MCV (80.0-100.0) fL MCH (25.0-34.0) pg MCHC (32.0-36.0) g/dL RDW Std Deviation (36.4-46.3) fL RDW Coeff of Chani (11.5-14.5) % Plt Count (130-400) K/uL Immature Gran % (Auto) % Neut % (Auto) % Lymph % (Auto) % [place] % (Auto) % Eos % (Auto) % Baso % (Auto) % Neut # (Auto) (1.40-6.50) K/uL Lymph # (Auto) (1.20-3.40) K/uL [place] # (Auto) (0.11-0.59) K/uL Eos # (Auto) (0.00-0.50) K/uL Baso # (Auto) (0.00-0.20) K/uL Immature Gran # (Auto) (0.01-0.20) K/uL Polychromasia Anisocytosis Macrocytosis Tear Drop Cells Ovalocytes POC Sodium (135-144) mmol/L Sodium 138 (136-145) mmol/L POC Potassium (3.3-5.0) mmol/L Potassium 5.4 H (3.5-5.1) mmol/L POC Chloride (101-112) mmol/L Chloride 118 H (98-107) mmol/L Carbon Dioxide 16 L (21-32) mmol/L POC Total CO2 (24-31) mmol/L Anion Gap 4 (3-11) POC Anion Gap (16-25) mmol/L POC BUN (7-18) mg/dl BUN 55 H (6-23) mg/dl Creatinine 1.16 (0.6-1.4) mg/dl POC Creatinine (0.6-1.3) mg/dl Est Cr Clr Drug Dosing 57.0 Est GFR ( Amer) 66.2 ml/min Est GFR (Non-Af Amer) 57.1 ml/min BUN/Creatinine Ratio 47.4 H (10-20) Glucose 244 H (70-99(Fasting)) mg/dl POC Glucose (70-99) mg/dl POC Glucose (other) (70-99) mg/dl Osmolality (280-300) mOsm/kg Lactate (0.4-2.0) mmol/L Calcium 8.8 (8.6-10.3) mg/dl POC Ioniz Calcium [place] (1.12-1.32) mmol/l Magnesium (1.7-2.4) mg/dl Total Bilirubin (0.2-1.0) mg/dl Direct Bilirubin 1.0 H AST (13-39) U/L ALT (7-52) U/L Alkaline Phosphatase (34-104) U/L Troponin I High Sens 18.2 (0-20) pg/ml Total Protein (6.0-8.3) gm/dl Albumin (3.4-5.0) gm/dl Procalcitonin Adenovirus (PCR) Not Detected (NotDetected) B. pertussis DNA (PCR) Not Detected (NotDetected) B.parapertussis DNA PCR Not Detected (NotDetected) Lyme Disease IgG Ab (Negative) Lyme Disease IgM Ab (Negative) C. pneumoniae DNA (PCR) Not Detected (NotDetected) Coronavirus OC43 (PCR) Not Detected (NotDetected) Coronavirus HKU1 (PCR) Not Detected (NotDetected) Coronavirus 229E (PCR) Not Detected (NotDetected) SARS-CoV-2 (PCR) Not Detected (NotDetected) Coronavirus NL63 (PCR) Not Detected (NotDetected) Human Metapneumovir PCR Not Detected (NotDetected) Influenza Type A (PCR) Not Detected (NotDetected) Influenza Type B (PCR) Not Detected (NotDetected) M. pneumoniae (PCR) Not Detected (NotDetected) Parainfluenza 1 (PCR) Not Detected (NotDetected) Parainfluenza 2 (PCR) Not Detected (NotDetected) Parainfluenza 3 (PCR) Not Detected (NotDetected) Parainfluenza 4 (PCR) Not Detected (NotDetected) RSV (PCR) Not Detected (NotDetected) Entero/Rhino (PCR) Not Detected (NotDetected) Blood Type Antibody Screen Antibody Identification Antibody ID Comment Crossmatch Administered Medications Discontinued Medications Sodium Chloride (Nss) 250 mls @ 999 mls/hr IV .Q16M ONE Stop: 02/05/24 10:57 Last Admin: 08/11/23 10:51 Dose: 999 mls/hr Documented By: JENNY Cefepime HCl (Maxipime) 2,000 mg in 20 mls @ 5 mls/min IV NOW STA; Protocol Stop: 08/11/23 11:20 Last Admin: 08/11/23 11:30 Dose: 5 mls/min Documented By: CAITLYN Sodium Chloride (Nss) 250 mls @ 999 mls/hr IV .Q16M ONE Stop: 08/11/23 12:17 Last Admin: 08/11/23 13:49 Dose: Not Given Documented By: TAWANDA Ondansetron HCl (Ondansetron Inj 2 Mg/Ml 2 Ml Vial) 4 mg IV NOW STA Stop: 08/11/23 13:36 Last Admin: 08/11/23 13:44 Dose: 4 mg Documented By: TAWANDA Imaging Data Radiologist's Impression: Chest X-Ray 08/11/23 10:03 XR chest 1V portable CLINICAL HISTORY: Sepsis. Lung cancer. COMPARISON STUDY: Chest CT June 14, 2023. Chest radiograph August 04, 2023. FINDINGS: Right shoulder arthroplasty is noted. Skinfolds project over the chest. There is no pneumothorax. Small left pleural effusion is similar to prior exam. Elevation of left hemidiaphragm is unchanged. Left basilar opacity is similar to prior study. Right midlung density similar to prior exam. There is pulmonary vascular congestion. Cardiomediastinal silhouette is stable. IMPRESSION: 1. No significant change in appearance of the chest. Cardiomegaly with pulmonary vascular congestion a small left pleural effusion. 2. Persistent right midlung density, similar to prior study. This may reflect posttreatment change however should be assessed on follow-up imaging studies to ensure stability. ACT 112: Negative or not required by law. Electronically signed by: Edgardo Griggs M.D. 08/11/2023 11:[address] 08/11/23 10:10 CT OF THE HEAD WITHOUT CONTRAST CLINICAL HISTORY: headache, weakness, confusion COMPARISON STUDY: Head CT and MRI of the brain February 03, 2019. CTA of the head February 04, 2019. CT DOSE: 625.8 mGy.cm TECHNIQUE: Helical axial images of the head were obtained without IV contrast. Automated exposure control was utilized for the study. A dose lowering technique was utilized adhering to the principles of ALARA. FINDINGS: No acute intracranial hemorrhage, midline shift or mass effect is present. The ventricular system is stable. White matter hypodensities suggest small vessel disease. 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 The basal cisterns are patent. No extra-axial collections are present. There are no findings to suggest acute dural sinus thrombosis or acute territorial infarct. No significant calvarial abnormalities are present. Visualized portions of the sinuses and mastoid air cells are clear. IMPRESSION: No acute intracranial findings. ACT 112: Negative or not required by law. Electronically signed by: Edgardo Griggs M.D. 08/11/2023 10:34 AM Discharge Plan Visit Data Chief Complaint: Neuro Symptoms/Deficit Stated Complaint: HEADACHE, CONFUSION, UNSTABLE ON FEET, DIZZINESS ED Provider: Roro Robertson Discharge Problem: Generalized weakness, Acute confusion, Headache, Anemia, Hyperglycemia Patient Disposition: Admitted As Inpatient
[2023-08-11 10:18] LABS: iSTAT Creatinine 1.2 mg/dl (0.6-1.3); iSTAT Hemoglobin 8.2 g/dl (14.0-18.0); iSTAT Ionized Calcium 1.41 mmol/l (1.12-1.32); iSTAT Potassium 5.6 mmol/L (3.3-5.0)
[2023-08-11 10:26] LABS: Hematocrit (blood only) 21.5 % (42.0-52.0); Hemoglobin 7.1 g/dl (14.0-18.0); Mean Corpuscular Hemoglobin 39.9 pg (25.0-34.0); Mean Corpuscular Volume 120.8 fL (80.0-100.0); Platelet Count 20 K/uL (130-400); RDW Coefficient of Variation 21.2 % (11.5-14.5); RDW Standard Deviation 93.3 fL (36.4-46.3); Red Blood Count 1.78 M/uL (4.70-6.10); White Blood Count 2.13 K/ul (4.8-10.8)
[2023-08-11 10:34] LABS: Alanine Aminotransferase 24 U/L (7-52); Albumin Level 2.5 gm/dl (3.4-5.0); Alkaline Phosphatase 144 U/L (34-104); Anion Gap 3 (3-11); Aspartate Aminotransferase 33 U/L (13-39); BUN Creatinine Ratio 44.6 (10-20); Blood Urea Nitrogen 54 mg/dl (6-23); Calcium 9.1 mg/dl (8.6-10.3); Carbon Dioxide 18 mmol/L (21-32); Chloride 116 mmol/L (98-107); Est GFR (African American) 62.9 ml/min; Est GFR (Non-African American) 54.3 ml/min; Glucose 236 mg/dl (70-99(Fasting)); Magnesium 1.8 mg/dl (1.7-2.4); Potassium 5.6 mmol/L (3.5-5.1); Sodium 137 mmol/L (136-145); Total Protein 5.7 gm/dl (6.0-8.3)
--- NOTE | 2023-08-11 10:37 | CT Scan Report ---
CT OF THE HEAD WITHOUT CONTRAST CLINICAL HISTORY: headache, weakness, confusion COMPARISON STUDY: Head CT and MRI of the brain February 03, 2019. CTA of the head February 04, 2019. CT DOSE: 625.8 mGy.cm TECHNIQUE: Helical axial images of the head were obtained without IV contrast. Automated exposure con trol was utilized for the study. A dose lowering technique was utilized adhering to the principles o f ALARA. FINDINGS: No acute intracranial hemorrhage, midline shift or mass effect is present. The ventricular system is stable. White matter hypodensities suggest small vessel disease. Several old cerebellar inf arcts are again noted. The basal cisterns are patent. No extra-axial collections are present. There a re no findings to suggest acute dural sinus thrombosis or acute territorial infarct. No significant c alvarial abnormalities are present. Visualized portions of the sinuses and mastoid air cells are josue r. IMPRESSION: No acute intracranial findings. ACT 112: Negative or not required by law. Electronically signed by: Edgardo Griggs M.D. 08/11/2023 10:34 AM
[2023-08-11 10:44] LABS: Troponin I High Sensitivity 20.9 pg/ml (0-20)
[2023-08-11 10:45] LABS: Anisocytosis Present; Eosinophils # (auto) 0.02 K/uL (0.00-0.50); Eosinophils % (auto) 0.9 %; Immature Granulocytes # (auto) 0.01 K/uL (0.01-0.20); Immature Granulocytes % (auto) 0.5 %; Lymphocytes # (auto) 0.44 K/uL (1.20-3.40); Lymphocytes % (auto) 20.7 %; Macrocytosis Present; Monocytes # (auto) 0.13 K/uL (0.11-0.59); Monocytes % (auto) 6.1 %; Neutrophils # (auto) 1.53 K/uL (1.40-6.50); Neutrophils % (auto) 71.8 %; Ovalocytes 2+; Polychromasia 1+; Tear Drop Cells 1+
[2023-08-11] MEDS: SODIUM CHLORIDE 0.9% 250 ML IV ONE ×2 (10:51→13:49)
--- NOTE | 2023-08-11 11:13 | XRay Report ---
XR chest 1V portable CLINICAL HISTORY: Sepsis. Lung cancer. COMPARISON STUDY: Chest CT June 14, 2023. Chest radiograph August 04, 2023. FINDINGS: Right shoulder arthroplasty is noted. Skinfolds project over the chest. There is no pneumot horax. Small left pleural effusion is similar to prior exam. Elevation of left hemidiaphragm is uncha nged. Left basilar opacity is similar to prior study. Right midlung density similar to prior exam. Th ere is pulmonary vascular congestion. Cardiomediastinal silhouette is stable. IMPRESSION: 1. No significant change in appearance of the chest. Cardiomegaly with pulmonary vascular congestion a small left pleural effusion. 2. Persistent right midlung density, similar to prior study. This may reflect posttreatment change ho wever should be assessed on follow-up imaging studies to ensure stability. ACT 112: Negative or not required by law. Electronically signed by: Edgardo Griggs M.D. 08/11/2023 11:11 AM
[2023-08-11] MEDS: CEFEPIME 2,000 MG/20 ML VIAL IV STA (11:30)
--- NOTE | 2023-08-11 11:49 | History & Physical Report ---
Date of Service August 11, 2023 Assessment & Plan (1) Generalized weakness: Plan: Weakness, fatigue suspect due to symptomatic anemia versus UTI History of pancytopenia requiring blood transfusions. Additionally with trace purulent output and darker than normal urine output in the last day Given clinical illness covered empirically with cefepime renally adjusted. Due to reported purulent output on ER exam from urethra has also been covered with daptomycin Hemoglobin 7.1, transfused 1 unit for suspected symptomatic anemia. Patient is bradycardic at baseline. BP 109/58 at bedside assessment Mild hypotension and hemoconcentrated on labs. He has diffuse third spacing of the lower extremities likely is a combination of hypoalbuminemia and loss of oncotic pressure with his pancytopenia. Hopefully will have some improvement collet replacement, continue mobilization strategies. 500 cc NSS given in the ER, switch to balanced crystalloid due to underlying hyperchloremia with nagma. renal evaluation as below. Lactate is not elevated on admission (2) Pancytopenia: Plan: Pancytopenia With history of splenomegaly due to liver cirrhosis with history of primary sclerosing cholangitis Suspect contributory symptomatic anemia with hemoglobin of 7.1, transfused as above. Patient is with chronic transfusion dependence and history of iron deficiency, trend H&H. No clinical signs of bleeding on admission Has been on weekly courses of Venofer in the past, pt receiving blood repeat iron levels deferred. Last ferritin 07/22/2019 73.5 CBC daily (3) Lung cancer: Plan: Left lower lobe well-differentiated mucinous adenocarcinoma, right upper lobe nodule 1.9 cm likely to be cancer but has not been biopsied S/p SBRT, [place] [facility] [place] At last hospitalization with transfer [place] [facility] [place] had his pleural effusion tapped, this did not show evidence of malignant cells/malignant exudative effu corey at that time (4) Primary sclerosing cholangitis: Plan: History of cirrhosis, sclerosing cholangitis AST ALT are normal, bilirubin near patient's baseline, alk phos near patient's baseline Ursodiol continued (5) Metabolic acidosis, normal anion gap (NAG): Plan: History of chronic normal anion gap acidosis VBG 7.29/34/44/16 consistent with incompletely compensated metabolic acidosis and underlying respiratory alkalosis ? Due to underlying renal dysfunction versus hyperchloremic acidosis from saline resuscitation at prior admissions. Was started on sodium bicarbonate twice daily in July however has had significant acceleration of his edema since starting this Chloride is elevated at 116 and patient is clinically volume contracted on admission. Baseline renal function is around 1.21 is at baseline at admission Serum osmolality, urine osmolality pending. Urine electrolytes, urine pH pending for evaluation of RTA (6) Urethral stricture: Plan: Urethral stricture, penile edema, LUTS PVR PVR at last follow-up 07/29/2023 was less than 10 cc Patient presents with creatinine of 1.21 on admission, similar to fire and hyper kalemia near his prior Dos Santos was attempted to be placed for PVR of greater than 350. Discussed with urology, noted that this was not reliable in the setting of his extent of diffuse edema. Recommended imaging with CTA/P; and trend BMP. If creatinine begins to rise consistent with obstructive uropathy then will reevaluate for Dos Santos placement, otherwise follow imaging and serial BMPs at this time. Appreciate recommendations Cefepime adjusted based on creatinine clearance of adjusted body weight of estimated 55; continue cefepime 1 gEvery 12 hours. Due to new purulent discharge will add adjunct daptomycin for MRSA coverage pending culture results. Do not suspect pneumonia at this time. (7) Type 2 diabetes mellitus: Plan: Last A1c 6.7% Conservative sliding scale ordered, no basal due to increased risk of hypoglycemia Glucose checks AC/at bedtime Boost ordered (8) CAD (coronary artery disease): Plan: Trop minimally elevated without chest pain and downtrending post fluids Aspirin continued, patient is at increased bleeding with thrombocytopenia Metoprolol temporarily held due to borderline hypotension and bradycardia EKG without acute ischemic changes. Patient does have first-degree AV block with WI similar to 1 month ago, although this is new compared to 04/2023. Beta- cecilia held, Lyme added. No transaminitis to suggest anaplasmosis Plan DVT prophylaxis: Pharmacal prophylaxis deferred due to chronic thrombocytopenia, SCDs as able Diet: Liberalized regular, soft bite-size diet as tolerated CODE STATUS: Full code Disposition: PCU History of Present Illness Primary Care Provider: Tom Bucio MD Jordy Tesfaye is an 83-year-old male past medical history of ITP, BPH, CKD 2, ulcerative colitis s/p ileostomy, chronic venous insufficiency, hypertension, primary sclerosing cholangitis, CAD with NH and PCI 2001 on aspirin, hyperlipidemia, lung cancer, and recent UTI discharged 07/22/2023 who at that t leslie had progression of anemia with hemoglobin 6.2 treated with 2 units of transfusion and was subsequently discharged on discussion and preference to not be admitted due to having a hematology oncology appointment the following day. Per ER: He presents to the ER 08/11/2023 with weakness, confusion, and headache. Patient has had increased fatigue and somnolence and poor p.o. intake of 1 day. At ER assessment is found to be mildly hypotensive, remains neutropenic, is anemic with a hemoglobin of 7.1 with last hemoglobin 7.8 08/04, and remains with a platelet count of approximately 20 existent with his prior ITP. Calcium is mildly elevated, bicarb is mildly diminished, and anion gap is not elevated. No FORTUNATO is present however BUN/creatinine ratio was increased and patient is clinically volume contracted. CT of the head shows no acute findings. Chest x- ray shows vascular congestion and a small left pleural effusion, and a persistent right midlung density similar to prior suspicious for posttreatment change but requiring ongoing imaging for stability. Procalcitonin is negative UA is pending, and patient has been empirically covered with cefepime. Trop mildly elevated at 20.9. No EKG. Sodium bicarb was added a few weeks ago. Has a hx of urethral tear with catheters in the past, saw jess last week. +scrotal edema unchanged over several weeks, 3rd spaces with low albumin and decreased oncotoic pressure. Purulent discharge from the penisTHis morning weaker than normla, lightheaded on standing .BSG 190. Ate breakfast, but had poor appetite. Developed a mild headache and 'just didn't perk up and get better like normal' per . No chest pain [employer] or at bedside. Stoma output has not changed. Got 250cc bolus. Per Patient and : Jordy was seen at the bedside with his present. He is extremely somnolent and gives limited history, gives collateral at the bedside. She reports after his last transfer to [facility] he had an extensive amount of fluid drained with Lasix and eventually did become dehydrated and got a little bit of fluid back. Was noted that he had extensive leg and scrotal swelling due to third spacing although blood pressure had run low. Returned home on June 27 and did okay for about a week, used a wheelchair for 1 to 2 days, then was able to use a walker and start PT in the beginning of July however since that time has had a strength decline. Was seen recently in the ER and got 2 units of blood and then was discharged with follow-up to Dr. Jorge allen patient seemed to continue to generally decline. Due to a metabolic acidosis he was started on sodium bicarbonate however this has seemed to produce/accelerate swelling in his legs and scrotum. His is very concerned that this is the cause of his decline and although recognizes that it is challenging to balance the side effects of this medicine against his renal function and acidosis. Would like to see nephrology while in-house. She reports that he has been more fatigued and declining up until this morning when he was much more lightheaded, extremely fatigued, and more sedated than normal. He did pee this morning urine was fairly dark and clouded. He has not had any fever, chills, sweats, chest pain, chest pressure, chest pain, falls, or head injuries. Had a little bit of blood in the nose when he had an oxygen cannula while in the ER the other week otherwise no bleeding. Was seen by urology for PVR and was noted to have significant penile and scrotal edema due to fluid shifting at that time. No signs of infection were noted. CT scan was reviewed and he was noted to have abnormal bladder wall thickening and was recommended for cystoscopy once edema was improved to evaluate this however this was deferred at that time due to the significant edema. UA was not indicative of infection. PVR 3 cc at that time. Medical History: Reviewed Medications: Reviewed Surgical History: Reviewed Family history: Reviewed Allergies: Reviewed Social History: Reviewed Code Status: Full code. Discussed with patient and at bedside. She acknowledges his decline and frailty, and notes that she is aware of the risk/benefits of cardiopulmonary resuscitation. At this time would like to remain full code, and in the event of a resuscitation effort that resulted in prolonged ventilation would want to reassess at that time to withdraw care if resuscitation obtained ROSC with to a level of quality that would not have been what Jordy wanted. Allergies Allergy/AdvReac Type Severity Reaction Status Date / Time Egg Derived Allergy Intermediate RASH WITH Verified 08/11/23 12:21 LARGE QUANTITIES latex Allergy Intermediate Unknown Verified 08/11/23 12:21 metformin Allergy Intermediate GI ISSUES Verified 08/11/23 12:21 pollen extracts Allergy Intermediate ITCHY Verified 08/11/23 12:21 EYES, SNEEZING, CONGESTION benzonatate AdvReac Severe Weakness Verified 08/11/23 12:21 [From Raeann Germain] codeine AdvReac Intermediate N/V, Verified 08/11/23 12:21 HYPOTENSTION fentanyl AdvReac Intermediate EXTREME Verified 08/11/23 12:21 NAUSEA; BP DROPS meperidine AdvReac Intermediate N/V, Verified 08/11/23 12:21 HYPOTENSTION morphine AdvReac Intermediate N/V, Verified 08/11/23 12:21 HYPOTENSTION Flu Virus Vaccine Allergy Intermediate AVOIDS DUE Uncoded 08/11/23 12:21 TO EGG ALLERGY NARCOTICS AdvReac Intermediate N/V, Uncoded 08/11/23 12:21 HYPOTENSTION Home Medications Medication Instructions Recorded Confirmed Type alendronate 70 mg tablet (Fosamax) 70 mg PO WK 09/29/18 08/11/23 History allopurinol 300 mg tablet 300 mg PO QAM 09/29/18 08/11/23 History finasteride 5 mg tablet (Proscar) 5 mg PO QAM 09/29/18 08/11/23 History magnesium oxide 400 mg PO QAM 09/29/18 08/11/23 History folic acid 1 mg tablet 1 mg PO DAILY 02/02/19 08/11/23 History cranberry 500 mg capsule 500 mg PO QAM 04/02/19 08/11/23 History meclizine 25 mg tablet 25 mg PO TID PRN Vertigo 04/02/19 08/11/23 History (Medi-Meclizine) loratadine 10 mg tablet (Claritin) 10 mg PO QAM 06/24/19 08/11/23 History calcium carbonate 500 mg-vitamin 1 tab PO DAILY 02/09/21 08/11/23 History D3 5 mcg (200 unit) tablet (Calcium 500 + D) misoprostol 100 mcg tablet 200 mcg PO QAM 02/09/21 08/11/23 History (Cytotec) omega 5-kaf-khk-fish oil 1,000 mg 1 cap PO DAILY 02/09/21 08/11/23 History (120 mg-180 mg) capsule (Fish Oil) metoprolol tartrate 25 mg tablet 75 mg (3 x 25 mg) PO QPM #90 tabs 02/13/21 08/11/23 Rx alfuzosin 10 mg tablet,extended 10 mg PO QDD 04/30/21 08/11/23 History release 24 hr diclofenac sodium 75 mg 75 mg PO QAM 04/30/21 08/11/23 History tablet,delayed release omeprazole 20 mg capsule,delayed 20 mg PO DAILY 04/30/21 08/11/23 History release Bifidobacterium infantis 4 mg 4 mg PO DAILY 09/04/22 08/11/23 History capsule (Align) Prevagen 1 tab PO QAM 09/04/22 08/11/23 History acetaminophen 500 mg tablet 500 - 1,000 mg PO Q6H PRN Pain 09/04/22 08/11/23 History (Tylenol Extra Strength) omega-3s 667 [id number] 3 cap PO DAILY 10/07/22 08/11/23 History oil-vitamin D3 250 unit capsule (D[facility] [place] Benefits) propylene glycol-glycerin 0.6 2 drp ophthalmic (eye) BID 10/07/22 08/11/23 History %-0.6 % eye drops in a dropperette (Soothe Lubricant) aspirin 81 mg tablet,delayed 81 mg PO DAILY 11/18/22 08/11/23 History release melatonin 3 mg tablet 5 mg PO HS PRN SLEEP 11/18/22 08/11/23 History metoprolol tartrate 50 mg tablet 50 mg PO .MIDDAY 11/18/22 08/11/23 History ursodiol 300 mg capsule 900 mg PO BID 11/18/22 08/11/23 History rosuvastatin 10 mg tablet 5 mg PO HS 02/20/23 08/11/23 History albuterol sulfate 90 mcg/actuation 2 puff inhalation Q6H PRN Other 05/05/23 08/11/23 History aerosol inhaler triamcinolone acetonide 0.1 % 1 applic topical DAILY PRN Other 06/14/23 08/11/23 History topical ointment ciprofloxacin HCl 500 mg tablet 500 mg PO DIRECTED PRN for PSC 07/22/23 08/11/23 History furosemide 20 mg tablet 20 mg PO DAILY #30 tabs 07/22/23 08/11/23 Rx sodium bicarbonate 650 mg tablet 650 mg PO BID #60 tabs 07/22/23 08/11/23 Rx Past Med/Surg History Medical History Mass of upper lobe of right lung Nocturnal hypoxia Atelectasis Bronchitis Basal cell carcinoma Lung cancer Left lower lobe pulmonary nodule Hypoxia Solitary pulmonary nodule Right tibial fracture Right tibial fracture Abscess of right shoulder (~09/2020) Macular degeneration Hx of vertigo Hx of basal cell carcinoma Benign prostatic hyperplasia with urinary obstruction Hx of ulcerative colitis S/p colectomy- ileostomy 1990 and 1994 History of IBS Hx of deep venous thrombosis LLE "A LONG TIME AGO" 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 Neurogenic bladder NO DOS SANTOS CATHETER 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 No evidence of thrombus on echo May 2022. TIA (transient ischemic attack) TIA vs complex migraine February 2019 Type 2 diabetes mellitus Left lower lobe pneumonia PVCs (premature ventricular contractions) Asymptomatic per patient History of kidney stones High cholesterol HTN (hypertension) CAD (coronary artery disease) STENT X 1 (2001) AT [facility] [place] Enlarged prostate Ileostomy in place History of myocardial infarction STENT X 1 (2001) S/P B/L TKA Stable; Has not had to use NTG since stent placement Surgical History History of cystoscopy History of lumbar laminectomy Hx of bilateral cataract extraction History of anesthesia reaction SLOW TO WAKE, BREATHING ISSUES, NAUSEA AND VOMITING History of colonoscopy History of cholecystectomy History of ERCP MULTIPLE History of appendectomy History of exploratory laparotomy X2 "COMMON DUCT RECONSTRUCTION" History of arthroplasty of right shoulder Right TSA= 05/24/16= Grade 1 view, MAC#4 at [facility] History of hand surgery RT/LEFT THUMBS History of total bilateral knee replacement Family History Father Myocardial infarction Family/Other Hypertension Nephrolithiasis Sister FH: ovarian cancer Other Family history of breast cancer in mother Social History Smoking Status: Never smoker Second Hand Exposure: Yes (childhood ); Do You Dip or Chew Tobacco: No; Hx Alcohol Use: Yes Alcohol type: wine Alcohol Intake Frequency: Monthly or Less Hx Substance Use: No Preferred Language: Estonian Communication Ability: Effective Visual Impairment: Limited Hearing Ability: Use of Hearing Aid [employer] Supervisor Required: No Beliefs That Will Affect Care: None marital status: Current Living Situation: Spouse Current Living Situation Comment: Home 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 Endorses that he is thirsty HEENT: Atraumatic, normocephalic. Vision/hearing grossly intact Pulm: CTAB A&P. -wheezes, -rales, -rhonchi. Symmetrical chest rise. No increased work of breathing. No respiratory distress. Cardiac: Regular, bradycardic radial pulses intact and symmetrical. Abdominal: Nontender, nondistended, soft. BS present. : Significant scrotal and diffuse pitting edema through the thighs and lower extremities. No erythema/warmth/tenderness. No crepitus is appreciated. Trace amount of blood at the penile tip from Dos Santos attempt. Extremities: Strength and sensation testing is limited due to mental status, patient does endorse sensation of soft touch in hands and feet before falling asleep. Diffuse pitting edema of the lower extremities as noted Results & Data Results & Data Vital Signs (Past 12 Hours) Vital Signs Pulse Pulse Resp BP BP Pulse Ox O2 Del Method 08/11/23 11:15 50 L 18 101/50 L 95 08/11/23 11:00 96 08/11/23 11:00 53 L 18 104/51 L 96 08/11/23 11:00 97 Room Air 08/11/23 10:20 59 L 08/11/23 09:46 54 L 16 104/58 L 98 Room Air PG Care Time/CCT Total # of Minutes Spent Total Time Spent with Patient: Total time spent is greater than 50% in coordination of care (as documented) at patient's floor/unit and/or counseling patient: Coding Level of Care Code 42706 INT INP/OBS CARE 3/75MIN Diagnoses Generalized weakness R53.1 Pancytopenia D61.818 Lung cancer C34.90 Primary sclerosing cholangitis K83.0 Metabolic acidosis, normal anion gap (NAG) E87.20 Urethral stricture N35.919 Type 2 diabetes mellitus with hyperglycemia, without long-term current use of insulin E11.65 Diabetes mellitus lobsterman insulin use: without lobsterman use Diabetes mellitus complication status: with hyperglycemia CAD (coronary artery disease) I25.10 (7) Type 2 diabetes mellitus Diabetes mellitus lobsterman insulin use: without mcfp use Diabetes mellitus complication status: with hyperglycemia Qualified Code(s): E11.65 - Type 2 diabetes mellitus with hyperglycemia
[2023-08-11] MEDS ORDERED: SODIUM CHLORIDE 0.9% 250 ML IV PRN (11:51)
[2023-08-11 12:46] LABS: Adenovirus PCR Not Detected (NotDetected); Bordetella parapertussis PCR Not Detected (NotDetected); Bordetella pertussis PCR Not Detected (NotDetected); Chlamydia pneumoniae PCR Not Detected (NotDetected); Coronavirus 229E PCR Not Detected (NotDetected); Coronavirus CoV-2 (COVID19)PCR Not Detected (NotDetected); Coronavirus HKU1 PCR Not Detected (NotDetected); Coronavirus NL63 PCR Not Detected (NotDetected); Coronavirus OC43PCR Not Detected (NotDetected); Human Metapneumovirus PCR Not Detected (NotDetected); Influenza A PCR Not Detected (NotDetected); Influenza B PCR Not Detected (NotDetected); Mycoplasma pneumoniae PCR Not Detected (NotDetected); Parainfluenza Virus 1 PCR Not Detected (NotDetected); Parainfluenza Virus 2 PCR Not Detected (NotDetected); Parainfluenza Virus 3 PCR Not Detected (NotDetected); Parainfluenza Virus 4 PCR Not Detected (NotDetected); Respiratory Syncytial VirusPCR Not Detected (NotDetected); Rhinovirus/Enterovirus PCR Not Detected (NotDetected)
[2023-08-11 13:14] LABS: Troponin I High Sensitivity 18.2 pg/ml (0-20)
[2023-08-11 13:24] LABS: Base Excess VBG -9.3 mEq/L; HCO3 VBG 16 mmol/L; Oxygen Saturation VBG 79.3 %; PCO2 VBG 34 mmHg (38-50); PO2 VBG 44 mmHg; pH VBG 7.29 (7.36-7.41)
[2023-08-11] MEDS ORDERED: CARBOHYDRATES FOR HYPOGLYCEMIA PO PRN (13:26)
[2023-08-11] MEDS ORDERED: GLUCAGON FOR INJ 1 MG VIAL SQ PRN (13:26)
[2023-08-11] MEDS ORDERED: GLUCOSE 10 TAB/TUBE PO PRN (13:26)
[2023-08-11] MEDS ORDERED: GLUCOSE 40% GEL 15 GM TUBE PO PRN (13:26)
[2023-08-11] MEDS ORDERED: DEXTROSE 50% 50 ML SYRINGE IV PRN (13:26)
[2023-08-11] MEDS: ONDANSETRON INJ 2 MG/ML 2 ML VIAL IV STA (13:44)
[2023-08-11 14:20] LABS: Calcium 8.8 mg/dl (8.6-10.3); Potassium 5.4 mmol/L (3.5-5.1)
[2023-08-11 14:26] LABS: BUN Creatinine Ratio 47.4 (10-20); Est GFR (African American) 66.2 ml/min; Est GFR (Non-African American) 57.1 ml/min
[2023-08-11 15:02] LABS: Lyme Ab IgG w/WB Rflx Negative (Negative); Lyme Ab IgM w/WB Rflx Negative (Negative)
[2023-08-11 15:32] LABS: Appearance Urine Cloudy (Clear); Bacteria Urine Automated Negative (Negative); Bilirubin Urine Negative (Negative); Blood Urine 3+ (Negative); Color Urine Orange; Epithelial Cell Urine Auto >30 /lpf (0-5); Glucose Urine UA Negative (Negative); Ketones Urine Negative (Negative); Leukocyte Esterase Urine 2+ (Negative); Nitrite Urine Negative (Negative); Protein Urine Trace (Negative); RBC Urine Automated >30 /hpf (0-4); Urobilinogen Urine Negative (Negative); WBC Urine Automated >30 /hpf (0-5); pH Urine 5.5 (4.5-7.5)
[2023-08-11] MEDS ORDERED: ACETAMINOPHEN 500 MG TAB PO PRN (15:32)
--- NOTE | 2023-08-11 15:41 | Electrocardiogram Report ---
Test Reason : Blood Pressure : / mmHG Vent. Rate : 053 BPM Atrial Rate : 053 BPM P-R Int : 216 ms QRS Dur : 096 ms QT Int : 470 ms P-R-T Axes : -12 -25 028 degrees QTc Int : 441 ms Sinus bradycardia with 1st degree A-V block Low voltage QRS Old Anterolateral infarct (cited on or before 04-AUG-2023) Diffuse Nonspecific T wave abnormality Abnormal ECG When compared with ECG of 04-AUG-2023 18:16, No significant change Confirmed by Malachi Gibson ([id number]) on 08/11/2023 3:41:08 PM Referred By: REFERRED SELF Confirmed By:Malachi Gibson
--- NOTE | 2023-08-11 16:38 | Nephrology Consultation ---
Date of Consultation August 11, 2023 Assessment & Plan (1) Hyperkalemia: (2) Metabolic acidosis: (3) Anemia: (4) Generalized weakness: (5) Acute confusion: (6) Thrombocytopenia: (7) Bilateral edema of lower extremity: (8) Hypotension: Plan 83 y o M with multiple complex medical issues including pancytopenia with h/o ITP, history of lung cancer, recurrent anemia requiring blood transfusion, admitted with generalized weakness, edema, confusion and noted to have multiple electrolyte abnormality and pancytopenia including potassium of 5.6, bicarb 18. Kidney function relatively stable, creatinine 1.2 mg/dl. Metabolic acidosis and hyperkalemia could be secondary to type IV RTA or other etiology. Persistent significant bilateral lower extremity edema up to lower abdomen most likely related to hypoalbuminemia. -- Increase Lasix to 40 mg IV daily, 1 dose now, will need close monitoring of renal function and electrolyte as he has significant risk for electrolyte abnormality and worsening renal function with high-dose diuretics. However, explained that with significant lower extremity edema up to lower abdomen, will need to increase the diuretics dose in order to be able to be effective. Accurate intake and output. -- Increase sodium bicarbonate to 2 tablets twice a day Thank you for allowing me to participate in your patient's care. It was a pleasure to see Mr. Tesfaye. History of Present Illness Reason for Consultation: Hyperkalemia, metabolic acidosis History of Present Illness Mr. Jordy Tesfaye is an 83-year-old male with PMH of adenocarcinoma of lung, ITP, BPH, ulcerative colitis s/p ileostomy admitted with generalized weakness and confusion. nephrology consult was requested for management of hyperkalemia and metabolic acidosis. EMR records were reviewed in detail during patients visit. and daughter was at the bedside and provided most of the information. Jordy presented to ER on 08/11/2023 with generalized weakness, confusion and poor p.o. intake. In ER, he was found to be hypotensive. Lab was notable for, neutropenia, anemia and thrombocytopenia, hemoglobin of 7.1 with last hemoglobin 7.8 08/04 with a platelet count 20 existent with h/o ITP. Creatinine was 1.2 with baseline creatinine lately around 1.2-1.3 mg/dl, elevated BUN/Cr ratio. Potassium was initially 5.6 which slightly improved to 5.4 on repeat lab. Bicarb was 18 dropped further to 16 with normal anion gap. Albumin has been low around 2.5-2.6. Calcium was mildly elevated. Urinalysis with trace proteinuria and microscopic hematuria and more than 30 WBC and RBC per high- power field but no bacteria. Chest x-ray shows vascular congestion and a small left pleural effusion, and a persistent right midlung density similar to prior suspicious for posttreatment change. He was empirically getting treated for sepsis, received cefepime and daptomycin. He was noted to have significant lower extremity edema which has been ongoing for last few weeks. Reports having urine output but urine amount was still low and dark-colored. He was noted to have postvoid residual of about 300 mL, Dos Santos catheter was tried but was diffic ult to place because of ureteral stricture. Urology recommended just to continue to monitor renal function and if there is any worsening of renal function and then they will try further intervention but otherwise just monitor at this time. His recent health issues seem to have started sometime in June when he had a fall and had multiple broken ribs and he was transferred to [facility] from [facility] ER. There he was noted to have pulmonary congestion and started on IV Lasix. According to his with aggressive diuresis he became volume depleted and eventually he was given IV fluid. Then he had presented to ER again twice over last 1 month in mid July and another in late July with anemia. He received blood transfusion. During ER visit in July 2 weeks ago he was noted to have metabolic acidosis and started on sodium bicarbonate. At the at that time he was again noted to have lower extremity edema and scrotal edema and Lasix was resumed at [address] showed bladder wall thickening and there was plan for cystoscopy as an outpatient. Past medical history is significant for hypertension, primary sclerosing cholangitis, UC s/o colostomy almost 50 years ago, CAD with WA and PCI 2001, hyperlipidemia, chronic venous insufficiency of lower extremity, Has h/o adenocarcinoma of left lung , following with oncology and recent CT chest showing 3.8 cm right upper lobe mass which increases size from 2.1 cm before raising suspicion for malignancy, waiting on further evaluation. He was awake and alert during visit but was somewhat lethargic and somnolent. Allergies Allergy/AdvReac Type Severity Reaction Status Date / Time Egg Derived Allergy Intermediate RASH WITH Verified 08/11/23 12:21 LARGE QUANTITIES latex Allergy Intermediate Unknown Verified 08/11/23 12:21 metformin Allergy Intermediate GI ISSUES Verified 08/11/23 12:21 pollen extracts Allergy Intermediate ITCHY Verified 08/11/23 12:21 EYES, SNEEZING, CONGESTION benzonatate AdvReac Severe Weakness Verified 08/11/23 12:21 [From Raeann Germain] codeine AdvReac Intermediate N/V, Verified 08/11/23 12:21 HYPOTENSTION fentanyl AdvReac Intermediate EXTREME Verified 08/11/23 12:21 NAUSEA; BP DROPS meperidine AdvReac Intermediate N/V, Verified 08/11/23 12:21 HYPOTENSTION morphine AdvReac Intermediate N/V, Verified 08/11/23 12:21 HYPOTENSTION Flu Virus Vaccine Allergy Intermediate AVOIDS DUE Uncoded 08/11/23 12:21 TO EGG ALLERGY NARCOTICS AdvReac Intermediate N/V, Uncoded 08/11/23 12:21 HYPOTENSTION Home Medications Medication Instructions Recorded Confirmed Type alendronate 70 mg tablet (Fosamax) 70 mg PO WK 09/29/18 08/11/23 History allopurinol 300 mg tablet 300 mg PO QAM 09/29/18 08/11/23 History finasteride 5 mg tablet (Proscar) 5 mg PO QAM 09/29/18 08/11/23 History magnesium oxide 400 mg PO QAM 09/29/18 08/11/23 History folic acid 1 mg tablet 1 mg PO DAILY 02/02/19 08/11/23 History cranberry 500 mg capsule 500 mg PO QAM 04/02/19 08/11/23 History meclizine 25 mg tablet 25 mg PO TID PRN Vertigo 04/02/19 08/11/23 History (Medi-Meclizine) loratadine 10 mg tablet (Claritin) 10 mg PO QAM 06/24/19 08/11/23 History calcium carbonate 500 mg-vitamin 1 tab PO DAILY 02/09/21 08/11/23 History D3 5 mcg (200 unit) tablet (Calcium 500 + D) misoprostol 100 mcg tablet 200 mcg PO QAM 02/09/21 08/11/23 History (Cytotec) omega [id number]-fish oil 1,000 mg 1 cap PO DAILY 02/09/21 08/11/23 History (120 mg-180 mg) capsule (Fish Oil) metoprolol tartrate 25 mg tablet 75 mg (3 x 25 mg) PO QPM #90 tabs 02/13/21 08/11/23 Rx alfuzosin 10 mg tablet,extended 10 mg PO QDD 04/30/21 08/11/23 History release 24 hr diclofenac sodium 75 mg 75 mg PO QAM 04/30/21 08/11/23 History tablet,delayed release omeprazole 20 mg capsule,delayed 20 mg PO DAILY 04/30/21 08/11/23 History release Bifidobacterium infantis 4 mg 4 mg PO DAILY 09/04/22 08/11/23 History capsule (Align) Prevagen 1 tab PO QAM 09/04/22 08/11/23 History acetaminophen 500 mg tablet 500 - 1,000 mg PO Q6H PRN Pain 09/04/22 08/11/23 History (Tylenol Extra Strength) omega-3s 667 oa-yjr-krs-fish 3 cap PO DAILY 10/07/22 08/11/23 History oil-vitamin D3 250 unit capsule (D[facility] [place] Benefits) propylene glycol-glycerin 0.6 2 drp ophthalmic (eye) BID 10/07/22 08/11/23 History %-0.6 % eye drops in a dropperette (Soothe Lubricant) aspirin 81 mg tablet,delayed 81 mg PO DAILY 11/18/22 08/11/23 History release melatonin 3 mg tablet 5 mg PO HS PRN SLEEP 11/18/22 08/11/23 History metoprolol tartrate 50 mg tablet 50 mg PO .MIDDAY 11/18/22 08/11/23 History ursodiol 300 mg capsule 900 mg PO BID 11/18/22 08/11/23 History rosuvastatin 10 mg tablet 5 mg PO HS 02/20/23 08/11/23 History albuterol sulfate 90 mcg/actuation 2 puff inhalation Q6H PRN Other 05/05/23 08/11/23 History aerosol inhaler triamcinolone acetonide 0.1 % 1 applic topical DAILY PRN Other 06/14/23 08/11/23 History topical ointment ciprofloxacin HCl 500 mg tablet 500 mg PO DIRECTED PRN for PSC 07/22/23 08/11/23 History furosemide 20 mg tablet 20 mg PO DAILY #30 tabs 07/22/23 08/11/23 Rx sodium bicarbonate 650 mg tablet 650 mg PO BID #60 tabs 07/22/23 08/11/23 Rx Patient History Medical History (Updated 08/11/23 @ 17:02 by Roro Robertson DO) Metabolic acidosis Mass of upper lobe of right lung Nocturnal hypoxia Atelectasis Bronchitis Basal cell carcinoma Lung cancer Left lower lobe pulmonary nodule Hypoxia Solitary pulmonary nodule Right tibial fracture Right tibial fracture Abscess of right shoulder (~09/2020) Macular degeneration Hx of vertigo Hx of basal cell carcinoma Benign prostatic hyperplasia with urinary obstruction Hx of ulcerative colitis S/p colectomy- ileostomy 1990 and 1994 History of IBS Hx of deep venous thrombosis LLE "A LONG TIME AGO" 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 Neurogenic bladder NO DOS SANTOS CATHETER 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 No evidence of thrombus on echo May 2022. TIA (transient ischemic attack) TIA vs complex migraine February 2019 Type 2 diabetes mellitus Left lower lobe pneumonia PVCs (premature ventricular contractions) Asymptomatic per patient History of kidney stones High cholesterol HTN (hypertension) CAD (coronary artery disease) STENT X 1 (2001) AT [facility] Sciatica Enlarged prostate Ileostomy in place History of myocardial infarction STENT X 1 (2001) S/P B/L TKA Stable; Has not had to use NTG since stent placement Surgical History (Updated 08/08/23 @ 00:09 by Deb Dunaway) History of cystoscopy History of lumbar laminectomy Hx of bilateral cataract extraction History of anesthesia reaction SLOW TO WAKE, BREATHING ISSUES, NAUSEA AND VOMITING History of colonoscopy History of cholecystectomy History of ERCP MULTIPLE History of appendectomy History of exploratory laparotomy X2 "COMMON DUCT RECONSTRUCTION" History of arthroplasty of right shoulder Right TSA= 05/24/16= Grade 1 view, MAC#4 at [facility] History of hand surgery RT/LEFT THUMBS History of total bilateral knee replacement Family History Father Myocardial infarction Family/Other Hypertension Nephrolithiasis Sister FH: ovarian cancer Other Family history of breast cancer in mother Social History Smoking Status: Never smoker Second Hand Exposure: Yes (childhood ); Do You Dip or Chew Tobacco: No; Hx Alcohol Use: Yes Alcohol type: wine Alcohol Intake Frequency: Monthly or Less Hx Substance Use: No Preferred Language: Gambian Communication Ability: Effective Visual Impairment: Limited Hearing Ability: Use of Hearing Aid Parachute Cushion Installer Required: No Beliefs That Will Affect Care: None marital status: Current Living Situation: Family Current Living Situation Comment: Home 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 Other Information That Helps Us Care for You: No Feels Safe at Home: Yes Safety Concerns: Feels Safe At This Time Diet Comment: avoid heavy roughage during the past year weight has: remained stable Assistive Devices: Hearing Aid - Bilateral and Walker Assistive Devices Comment: hearing aids at home Review of Systems Review of Systems: Unobtainable due to reduced consciousness Physical Exam Constitutional: WD/WN, vitals as above + ill appearing and + lethargic; no acute distress Eyes: + anicteric sclerae Neck: normal visual inspection Respiratory: no respiratory distress Auscultation: lungs clear to auscultation bilaterally Cardiovascular: Rate/Rhythm: regular rate and regular rhythm Heart Sounds: normal S1 and normal S2 Extremities: + edema (4 + b/l LE edema ) Gastrointestinal (Abdomen): Percussion/Palpation: abdomen soft; abdomen nontender lower abdominal wall edema, colostomy Musculoskeletal: Extremities: extremities normal to inspection Skin: no rashes, warm and dry Neurologic: no focal motor deficits Psychiatric: Orientation: alert and oriented x 3 Affect: euthymic affect Genitourinary: scrotal edema Results & Data Vital Signs (Past 12 Hours) Vital Signs Temp Pulse Pulse Resp BP BP Pulse Ox 08/11/23 16:32 36.5 C 44 L 22 115/53 L 97 08/11/23 16:00 35.5 C L 47 L 14 107/67 98 08/11/23 15:20 36.5 C 48 L 18 115/53 L 99 08/11/23 14:40 53 L 16 97 08/11/23 14:35 100/51 L 08/11/23 14:35 50 L 12 97 08/11/23 14:35 35 C L 52 L 20 100/51 L 98 08/11/23 14:30 99/48 L 08/11/23 14:30 50 L 15 96 08/11/23 14:25 35.1 C L 08/11/23 14:20 50 L 12 95 08/11/23 14:19 50 L 16 99/45 L 95 08/11/23 14:10 49 L 10 L 94 08/11/23 14:09 99/45 L 08/11/23 14:09 48 L 10 L 95 08/11/23 14:00 101/47 L 08/11/23 14:00 50 L 15 96 08/11/23 13:50 54 L 17 96 08/11/23 13:40 47 L 11 L 96 08/11/23 13:30 50 L 10 L 95 08/11/23 13:30 99/49 L 08/11/23 13:20 52 L 18 92 08/11/23 13:10 50 L 11 L 97 08/11/23 13:00 102/43 L 08/11/23 13:00 49 L 17 95 08/11/23 12:52 49 L 24 109/58 L 95 08/11/23 12:50 48 L 9 L 95 08/11/23 12:40 50 L 12 96 08/11/23 12:33 109/58 L 08/11/23 12:33 52 L 14 96 08/11/23 12:32 51 L 12 96 08/11/23 12:20 51 L 13 96 08/11/23 12:16 52 L 12 97 08/11/23 12:16 110/46 L 08/11/23 12:10 53 L 13 97 08/11/23 12:05 51 L 18 103/49 L 97 08/11/23 12:00 55 L 16 97 08/11/23 12:00 103/49 L 08/11/23 11:50 52 L 11 L 96 08/11/23 11:45 51 L 10 L 96 08/11/23 11:45 100/48 L 08/11/23 11:40 52 L 11 L 95 08/11/23 11:30 54 L 11 L 95 08/11/23 11:30 101/50 L 08/11/23 11:27 105/48 L 08/11/23 11:27 55 L 11 L 96 08/11/23 11:20 54 L 13 96 08/11/23 11:15 50 L 18 101/50 L 95 08/11/23 11:10 55 L 12 97 08/11/23 11:00 104/51 L 08/11/23 11:00 52 L 15 96 08/11/23 11:00 96 08/11/23 11:00 53 L 18 104/51 L 96 08/11/23 11:00 97 08/11/23 10:50 52 L 14 97 08/11/23 10:45 55 L 14 93 08/11/23 10:45 104/55 L 08/11/23 10:40 55 L 13 97 08/11/23 10:33 54 L 7 L 96 08/11/23 10:20 57 L 17 95 08/11/23 10:20 59 L 08/11/23 10:15 55 L 12 93 08/11/23 10:15 111/54 L 08/11/23 09:46 54 L 16 104/58 L 98 O2 Del Method 08/11/23 16:32 08/11/23 16:00 08/11/23 15:20 08/11/23 14:40 08/11/23 14:35 08/11/23 14:35 08/11/23 14:35 08/11/23 14:30 08/11/23 14:30 08/11/23 14:25 08/11/23 14:20 08/11/23 14:19 08/11/23 14:10 08/11/23 14:09 08/11/23 14:09 08/11/23 14:00 08/11/23 14:00 08/11/23 13:50 08/11/23 13:40 08/11/23 13:30 08/11/23 13:30 08/11/23 13:20 08/11/23 13:10 08/11/23 13:00 08/11/23 13:00 08/11/23 12:52 08/11/23 12:50 08/11/23 12:40 08/11/23 12:33 08/11/23 12:33 08/11/23 12:32 08/11/23 12:20 08/11/23 12:16 08/11/23 12:16 08/11/23 12:10 08/11/23 12:05 08/11/23 12:00 08/11/23 12:00 08/11/23 11:50 08/11/23 11:45 08/11/23 11:45 08/11/23 11:40 08/11/23 11:30 08/11/23 11:30 08/11/23 11:27 08/11/23 11:27 08/11/23 11:20 08/11/23 11:15 08/11/23 11:10 08/11/23 11:00 08/11/23 11:00 08/11/23 11:00 08/11/23 11:00 08/11/23 11:00 Room Air 08/11/23 10:50 08/11/23 10:45 08/11/23 10:45 08/11/23 10:40 08/11/23 10:33 08/11/23 10:20 08/11/23 10:20 08/11/23 10:15 08/11/23 10:15 08/11/23 09:46 Room Air PG Care Time/CCT Total # of Minutes Spent Total Time Spent with Patient: Total time spent is greater than 50% in coordination of care (as documented) at patient's floor/unit and/or counseling patient: Coding Level of Care Code 06692 INT INP/OBS CARE 3/75MIN Diagnoses Hyperkalemia E87.5 Metabolic acidosis E87.20 Anemia D64.9 Generalized weakness R53.1 Acute confusion R41.0 Thrombocytopenia D69.6 Bilateral edema of lower extremity R60.0 Hypotension I95.9
[2023-08-11] MEDS ORDERED: ALBUTEROL HFA 8 GM INHALER INH PRN (16:59)
[2023-08-11] MEDS ORDERED: TRIAMCINOLONE ACET 0.1% OINT 15 GM TUBE TOP PRN (16:59)
[2023-08-11] MEDS ORDERED: MECLIZINE HCL 25 MG TAB PO PRN (16:59)
[2023-08-11] MEDS ORDERED: DAPTOmycin 350 MG in SYRINGE 0 ML IV SCH (17:30)
--- NOTE | 2023-08-11 18:48 | CT Scan Report ---
CT OF THE ABDOMEN AND PELVIS WITHOUT CONTRAST CLINICAL HISTORY: Obstructive uropathy. COMPARISON STUDY: CT of the abdomen and pelvis July 22, 2023. TECHNIQUE: Axial images of the abdomen and pelvis were obtained without IV contrast. Images were revi ewed in the axial, sagittal, and coronal planes. Automated exposure control was utilized for the gisell dy. A dose lowering technique was utilized adhering to the principles of ALARA. FINDINGS: Small bilateral pleural effusions are partially imaged on this exam. Left pleural effusion appears slightly loculated. Subpleural opacities favor atelectasis. Evaluation of the abdomen and pel vis is suboptimal on this unenhanced exam. Heterogeneity of the right hepatic lobe is similar to prio r exams. Although nonspecific, this is likely related to underlying cirrhosis with fibrosis. The live r is cirrhotic. Pneumobilia is again noted. Liver is suboptimally assessed on this unenhanced exam. S plenomegaly is unchanged. Small amount of ascites is similar to prior CT. No fluid collections are pr esent. There is body wall and mesenteric edema. No renal, ureteral or bladder calculi are present. Th ere is no hydronephrosis. Indeterminate 1.1 cm right renal lesion is unchanged. There is no evidence for a bowel obstruction status post proctocolectomy with left lower quadrant ileostomy. 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 Bladder wall is irregular and trabeculated. This is chronic. Old lumbar spine co mpression fractures are again noted. No acute fractures are identified within the visualized skeletal structures. There has been no significant change in appearance of the abdomen or pelvis since prior CT. IMPRESSION: 1. No urinary calculi or hydronephrosis. 2. Cirrhosis with splenomegaly, a small amount of ascites and body wall and mesenteric edema, similar to prior CT. 3. Status post proctocolectomy with left lower quadrant ileostomy and parastomal hernia. No evidence for a bowel obstruction. 4. Small bilateral pleural effusions. ACT 112: Negative or not required by law. Electronically signed by: Edgardo Griggs M.D. 08/11/2023 6:46 PM
[2023-08-11 18:52] LABS: BUN Creatinine Ratio 49.1 (10-20); Calcium 8.8 mg/dl (8.6-10.3); Creatinine Clr Calc Pharmacy 49.1 ml/min; Est GFR (African American) 70.6 ml/min; Est GFR (Non-African American) 60.9 ml/min; Potassium 5.3 mmol/L (3.5-5.1)
[2023-08-11] MEDS: INSULIN ASPART PER UNIT CHARGE SC SCH (19:26)
[2023-08-11] MEDS: TAMSULOSIN HCL 0.4 MG CAP PO SCH (19:49)
[2023-08-11] MEDS: FUROSEMIDE 40 MG/4 ML VIAL IV SCH (19:49)
[2023-08-11] MEDS ORDERED: ARTIFICIAL TEARS OP PRN (21:00)
[2023-08-11] MEDS: SODIUM BICARBONATE 650 MG TAB PO SCH (21:14)
[2023-08-11] MEDS: ROSUVASTATIN CALCIUM 5 MG TAB PO SCH (21:14)
[2023-08-11] MEDS: ACETAMINOPHEN 325 MG TAB PO PRN (21:15)
[2023-08-11] MEDS: ursodioL 300 MG CAP PO SCH (21:15)
[2023-08-11] MEDS: MELATONIN 3 MG TAB PO PRN (21:15)
[2023-08-11 21:57] LABS: A calco-baum cmplx NotReported Not Detected (NotDetected); Bact fragilis Not Reported Not Detected (NotDetected); Blood Culture Id Panel See PCR Comment (NotDetected); C auris Not Reported Not Detected (NotDetected); Calbicans Not Reported Not Detected (NotDetected); Candida glabrata Not Reported Not Detected (NotDetected); Candida krusei Not Reported Not Detected (NotDetected); Cneoformans/gatti Not Reported Not Detected (NotDetected); Cparapsilosis Not Reported Not Detected (NotDetected); E cloacae compx Not Reported Not Detected (NotDetected); Efaecalis Not Reported Not Detected (NotDetected); Efaecium Not Reported Not Detected (NotDetected); Enterobacterales Not Reported Not Detected (NotDetected); Escherichia coli Not Reported Not Detected (NotDetected); H influenzae Not Reported Not Detected (NotDetected); K aerogenes Not Reported Not Detected (NotDetected); Koxytoca Not Reported Not Detected (NotDetected); Kpneumoniae grp Not Reported Not Detected (NotDetected); Lmonocyt Not Reported Not Detected (NotDetected); N meningitidis Not Reported Not Detected (NotDetected); P aeruginosa Not Reported Not Detected (NotDetected); Proteus spp Not Reported Not Detected (NotDetected); Salmonella spp Not Reported Not Detected (NotDetected); Smarcescens Not Reported Not Detected (NotDetected); Staph lugdunensis Not Reported Not Detected (NotDetected); Staph spp. Not Reported Not Detected (NotDetected); Staphaureus Not Reported Not Detected (NotDetected); Staphepi Not Reported Not Detected (NotDetected); Stenmaltophilia Not Reported Not Detected (NotDetected); Strep agal(GrpB) Not Reported Not Detected (NotDetected); Strep pneum Not Reported Not Detected (NotDetected); Strep pyog (GrpA) Not Reported Not Detected (NotDetected); Strep spp Not Reported DETECTED (NotDetected)
[2023-08-11 22:18] LABS: Streptococcus spp DETECTED (NotDetected)
[2023-08-11] MEDS: CEFEPIME 2,000 MG in SYRINGE 0 ML IV SCH (23:40)
[2023-08-12] MEDS ORDERED: CEFEPIME 1,000 MG in SYRINGE 0 ML IV SCH
[2023-08-12 01:53] LABS: Urine Potassium 27.9 mmol/L
[2023-08-12] MEDS: LORazepam 0.5 MG in SYRINGE 0.25 ML IV STA (02:31)
--- NOTE | 2023-08-12 05:41 | Communication Note ---
Date of Service: August 12, 2023 Notified that patient was agitated, having some heavier breathing overnight. EKG obtained, when compared to prior EKG no significant changes or obvious ST changes were visible per my interpretation. I also ordered a metabolic panel, repeat trop, and magnesium level at that time. Patient's notified nursing that he does typically experience sundowning while in the hospital, considering patient's restlessness I ordered a dose of IV Ativan. With the patient remaining agitated and restless, I decided to push the previously ordered blood work to be collected with regular morning labs. Patient did not sleep afterwards and remained restless. Was notified by nursing that the patient's heart rate had increased to the 130s, repeat EKG was obtained and patient found to be in afib with RVR. No prior history of afib is noted in the patient's chart. Per chart review, patient is typically on metoprolol but this was help yesterday due to borderline hypotension. I went to bed side at approximately 6am and auscultated the patient's heart which had an irregularly irregular rhythm, patient was breathing comfortably at this time without accessory muscle use. BP at this time was ~106/56. Reviewed recently collected blood work and discussed with Dr. Lantigua, will order digoxin 0.25mg IV to help achieve rate control.
[2023-08-12 06:05] LABS: BUN Creatinine Ratio 48.7 (10-20); Calcium 9.1 mg/dl (8.6-10.3); Creatinine Clr Calc Pharmacy 47.8 ml/min; Est GFR (African American) 68.3 ml/min; Est GFR (Non-African American) 58.9 ml/min; Magnesium 1.6 mg/dl (1.7-2.4); Potassium 4.6 mmol/L (3.5-5.1)
[2023-08-12 06:06] LABS: Albumin Globulin Ratio 0.7 (0.9-2); Albumin Level 2.3 gm/dl (3.4-5.0); BUN Creatinine Ratio 49.1 (10-20); Calcium 9.1 mg/dl (8.6-10.3); Creatinine Clr Calc Pharmacy 48.2 ml/min; Est GFR (African American) 69.1 ml/min; Est GFR (Non-African American) 59.6 ml/min; Globulin 3.2 gm/dl (2.5-4.0); Potassium 4.6 mmol/L (3.5-5.1); Total Protein 5.5 gm/dl (6.0-8.3)
[2023-08-12 06:11] LABS: Troponin I High Sensitivity 19.8 pg/ml (0-20)
[2023-08-12] MEDS: DIGOXIN 250 MCG in SYRINGE 9 ML IV STA (06:35)
[2023-08-12 06:38] LABS: Anisocytosis Present; Hematocrit (blood only) 24.8 % (42.0-52.0); Hemoglobin 8.2 g/dl (14.0-18.0); Immature Granulocytes # (auto) 0.01 K/uL (0.01-0.20); Immature Granulocytes % (auto) 0.3 %; Lymphocytes # (auto) 0.19 K/uL (1.20-3.40); Lymphocytes % (auto) 6.3 %; Macrocytosis Present; Mean Corpuscular Hemoglobin 38.9 pg (25.0-34.0); Mean Corpuscular Hgb Conc 33.1 g/dL (32.0-36.0); Mean Corpuscular Volume 117.5 fL (80.0-100.0); Monocytes # (auto) 0.17 K/uL (0.11-0.59); Monocytes % (auto) 5.6 %; Neutrophils # (auto) 2.64 K/uL (1.40-6.50); Neutrophils % (auto) 87.8 %; Ovalocytes 1+; Platelet Estimate Signific. Decreased (Normal); Polychromasia 1+; RDW Coefficient of Variation 21.8 % (11.5-14.5); Red Blood Count 2.11 M/uL (4.70-6.10); White Blood Count 3.01 K/ul (4.8-10.8)
[2023-08-12 06:42] LABS: Platelet Count 17 K/uL (130-400)
[2023-08-12] MEDS: MAGNESIUM OXIDE 400 MG TAB PO SCH (07:49)
[2023-08-12] MEDS: LORATADINE 10 MG TAB PO SCH (07:52)
[2023-08-12] MEDS: OMEGA-3 (PURIFIED FISH OIL) 1 GM CAP PO SCH (07:52)
[2023-08-12] MEDS: ADVANCED PROBIOTIC 1250 MG CAPSULE PO SCH (07:53)
[2023-08-12] MEDS: DICLOFENAC SODIUM 75 MG TABCR PO SCH (07:53)
[2023-08-12] MEDS: FOLIC ACID 1 MG TAB PO SCH (07:53)
[2023-08-12] MEDS: allopurinoL 300 MG TAB PO SCH (07:53)
[2023-08-12] MEDS: CALCIUM 600MG + VIT D 400 IU TAB PO SCH (07:53)
[2023-08-12] MEDS: FINASTERIDE 5 MG TAB PO SCH (07:54)
[2023-08-12] MEDS: miSOPROStoL 200 MCG TAB PO SCH (07:54)
[2023-08-12] MEDS: ASPIRIN 81 MG ECTAB PO SCH (07:54)
--- NOTE | 2023-08-12 08:14 | Electrocardiogram Report ---
Test Reason : Blood Pressure : / mmHG Vent. Rate : 090 BPM Atrial Rate : 090 BPM P-R Int : 228 ms QRS Dur : 094 ms QT Int : 384 ms P-R-T Axes : 047 125 082 degrees QTc Int : 469 ms Sinus rhythm with 1st degree A-V block with Premature atrial complexes Incomplete right bundle branch block Old Lateral infarct Abnormal ECG When compared with ECG of 11-AUG-2023 10:05, HR has increased by 37 bpm Nonspecific T wave abnormality no longer present Incomplete right bundle branch block now present Confirmed by Malachi Gibson ([id number]) on 08/12/2023 8:14:18 AM Referred By: REFERRED SELF Confirmed By:Malachi Gibson
--- NOTE | 2023-08-12 08:18 | Electrocardiogram Report ---
Test Reason : Blood Pressure : / mmHG Vent. Rate : 102 BPM Atrial Rate : 085 BPM P-R Int : 000 ms QRS Dur : 088 ms QT Int : 364 ms P-R-T Axes : 000 -10 034 degrees QTc Int : 474 ms Sinus tachycardia Low voltage QRS Possible Old Anterolateral infarct (cited on or before 04-AUG-2023) Abnormal ECG When compared with ECG of 12-AUG-2023 01:45, No significant change Confirmed by Malachi Gibson ([id number]) on 08/12/2023 8:17:54 AM Referred By: REFERRED SELF Confirmed By:Malachi Gibson
[2023-08-12] MEDS ORDERED: NON-FORMULARY MEDICATION (Cranberry 500 mg Capsule) PO SCH (09:00)
[2023-08-12] MEDS ORDERED: NON-FORMULARY MEDICATION (Prevagen 1 TAB) PO SCH (09:00)
--- NOTE | 2023-08-12 12:28 | Nephrology Progress Note ---
Date of Service August 12, 2023 Assessment & Plan (1) Hyperkalemia: (2) Metabolic acidosis: (3) Anemia: (4) Generalized weakness: (5) Acute confusion: (6) Thrombocytopenia: (7) Bilateral edema of lower extremity: (8) Hypotension: Plan 83 y o M with multiple complex medical issues including pancytopenia with h/o ITP, history of lung cancer, recurrent anemia requiring blood transfusion, admitted with generalized weakness, edema, confusion and noted to have multiple electrolyte abnormality and pancytopenia including potassium of 5.6, bicarb 18. Kidney function relatively stable, creatinine 1.2 mg/dl. Metabolic acidosis and hyperkalemia could be secondary to type IV RTA or other etiology. Persistent significant bilateral lower extremity edema up to lower abdomen most likely related to hypoalbuminemia. Responding to diuretics, urine output improved on IV Lasix. Electrolytes slightly improved, kidney function stable. -- Continue Lasix 40 mg IV daily, close monitoring of renal function and electrolyte as he has significant risk for electrolyte abnormality and worsening renal function with high-dose diuretics. However, explained that with significant lower extremity edema up to lower abdomen. Accurate intake and output. --Continue sodium bicarbonate 2 tablets twice a day Admission and Anticipated Discharge Date Admission Date: August 11, 2023 Jina Romero was seen and evaluated this am with and daughter at bedside. He was comfortable but somewhat confused and lethargic. Responding to diuretics, decent UO, electrolytes slightly improved. Review of Systems Review of Systems: Unobtainable due to reduced consciousness Physical Exam Constitutional: WD/WN, vitals as above + ill appearing and + lethargic; no acute distress Eyes: + anicteric sclerae Respiratory: no respiratory distress Auscultation: lungs clear to auscultation bilaterally Cardiovascular: Rate/Rhythm: regular rate and regular rhythm Heart Sounds: normal S1 and normal S2 Extremities: + edema (3+ b/l LE edema ) Gastrointestinal (Abdomen): Percussion/Palpation: abdomen soft; abdomen nontender Musculoskeletal: Extremities: extremities normal to inspection Skin: no rashes, warm and dry Results & Data Vital Signs (Past 12 Hours) Vital Signs Temp Pulse Pulse Resp BP Pulse Ox Pulse Ox 08/12/23 11:00 97 08/12/23 10:55 67 18 109/51 L 93 08/12/23 07:27 36.6 C 101 H 17 101/46 L 92 08/12/23 06:35 92 H 08/12/23 04:10 36.3 C L 92 H 18 120/55 L 94 O2 Del Method O2 Del Method 08/12/23 11:00 Room Air 08/12/23 10:55 Room Air 08/12/23 07:27 Room Air 08/12/23 06:35 08/12/23 04:10 Room Air PG Care Time/CCT Total # of Minutes Spent Total Time Spent with Patient: Total time spent is greater than 50% in coordination of care (as documented) at patient's floor/unit and/or counseling patient: Coding Level of Care Code 45946 SUB INP/OBS CARE 235MIN Diagnoses Hyperkalemia E87.5 Metabolic acidosis E87.20 Anemia D64.9 Generalized weakness R53.1 Acute confusion R41.0 Thrombocytopenia D69.6 Bilateral edema of lower extremity R60.0 Hypotension I95.9
[2023-08-12] MEDS: MAGNESIUM SULFATE / D5W 1 GM/100 ML BAG IV ONE (13:19)
[2023-08-12] MEDS ORDERED: HALOPERIDOL LACTATE 5 MG/ML 1 ML VIAL IV PRN (18:35)
--- NOTE | 2023-08-12 19:01 | Hospitalist Progress Note ---
Date of Service August 12, 2023 Assessment & Plan (1) Generalized weakness: Plan: 83 y/o with complex medical history including lung cancer, PSC and resultant cirrhosis with pancytopenia, history of colectomy for UC with ileostomy. Recently he has had general decline with progressive generalized weakness and fluid retention with onset of anasarca and metabolic acidosis. Came to ED with weakness, decreased mental status and progressive edema. Started on cefepime at admission for suspected UTI however urine culture is negative. Weakness, fatigue, acute toxic metabolic encephalopathy, anasarca - transfused on admission for symptomatic anemia, expected rise in Hg stable today - possible infection - continue cefepime for now pending cultures - acute encephalopathy present on admission, worsened after dose of 0.5 mg IV lorazepam given for acute overnight agitation. - added to allergies list - PRN low dose olanzapine / haloperidol for nighttime agitation/ing - reviewed medlist and avoid sedating, neurotoxic agents - check ammonia level. 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 Patient is with chronic transfusion dependence and history of iron deficiency, trend H&H. No clinical signs of bleeding on admission Has been on weekly courses of Venofer in the past, pt receiving blood repeat iron levels deferred. Last ferritin 07/22/2019 73.5 CBC daily (3) Lung cancer: Plan: Left lower lobe well-differentiated mucinous adenocarcinoma, right upper lobe nodule 1.9 cm likely to be cancer but has not been biopsied S/p SBRT, [place] [facility] [place] At last hospitalization with transfer [place] [facility] [place] had his pleural effusion tapped, this did not show evidence of malignant cells/malignant exudative effusion at that time - will further clarify history and plans with respect to his lung mass (4) Primary sclerosing cholangitis: Plan: History of cirrhosis, sclerosing cholangitis AST ALT are normal, bilirubin near patient's baseline though lydia to 3 overnight, alk phos near patient's baseline - he has no RUQ pain, cholangitis seems unlikely, AM CMP ordered Ursodiol continued (5) Metabolic acidosis, normal anion gap (NAG): Plan: History of chronic normal anion gap acidosis VBG 7.29/34/44/16 consistent with incompletely compensated metabolic acidosis and underlying respiratory alkalosis -could be RTA, potentially could be related to ileostomy consulted nephrology Serum osmolality, urine osmolality pending. Urine electrolytes, urine pH pending for evaluation of RTA (6) Urethral stricture: Plan: Urethral stricture, penile edema, LUTS PVR PVR at last follow-up 07/29/2023 was less than 10 cc Patient presents with creatinine of 1.21 on admission, similar to previous Banks was attempted to be placed for PVR of greater than 350. Discussed with urology, noted that this was not reliable in the setting of his extent of diffuse edema. Recommended imaging with CTA/P (did not show urinary retention/obstruction); and trend BMP. If creatinine begins to rise consistent with obstructive uropathy then will reevaluate for Banks placement, otherwise follow imaging and serial BMPs at this time. Appreciate recommendations (7) Type 2 diabetes mellitus: Plan: Last A1c 6.7% Conservative sliding scale ordered, no basal due to increased risk of hypoglycemia Glucose checks AC/at bedtime Boost ordered (8) CAD (coronary artery disease): Plan: Trop normal range x 2 without chest pain and downtrending post fluids Aspirin continued, patient is at increased bleeding with thrombocytopenia Metoprolol temporarily held due to borderline hypotension and bradycardia EKG without acute ischemic changes. Patient does have first-degree AV block with [place] similar to 1 month ago, although this is new compared to 04/2023. Beta- cecilia held, Lyme added. No transaminitis to suggest anaplasmosis -thought to have rapid Afib AM of 08/12, however, test bore helper read EKG and was sinus tachycardia with PAC's (9) Chronic ITP (idiopathic thrombocytopenia): Plan: Hx ITP per chart - unclear whether ITP or thrombocytopenia due to splenomegaly and cirrhosis. -monitor daily CBC Plan Replaced mild hypomagnesemia with 1g IV 08/12 DVT prophylaxis: no chemoppx because of chronic thrombocytopenia, SCDs as able Admission and Anticipated Discharge Date Admission Date: August 11, 2023 Subjective Agitated overnight and tachycardic. Seen by resident, given 0.5 mg IV lorazepam and digoxin for tachycardia since thought to be in afib. His at bedside reports he is very confused today, not oriented to hospital or situation. Poor historian but does not seem to have shortness of breath, cough, abdominal or SP pain or dysuria, or chest pain. His reports leg edema is improved. Physical Exam 2 Physical Exam: PHYSICAL EXAMINATION Last 24h vital signs reviewed, see documentation in flowsheet General: comfortable appearing, no distress HEENT: Normocephalic, atraumatic, pupils round and equal, sclerae anicteric, no conjunctival injection, moist mucus membranes Lungs: Normal respiratory effort. Clear to auscultation bilaterally. No RRW Heart: Regular rate and rhythm, no murmurs. No JVD Abdomen: Soft, nontender, nondistended. Bowel sounds present. No SP tenderness. Ostomy L lower abdomen, stool in bag. Large L lower abdominal hernia, soft nontender. Extremities: Warm, dry, well-perfused. 2-3+ extremity edema to thighs and some edema of lower abdominal wall. Neuro: Alert and oriented x self, family, not to hospital or situation, confused, speech intact, face symmetric, moves 4 extremities well Psych: normal behavior, not agitated Results & Data Results & Data Vital Signs (Past 12 Hours) Vital Signs Temp Pulse Resp BP Pulse Ox Pulse Ox O2 Del Method 08/12/23 15:08 36.3 C L 92 H 16 101/56 L 92 Room Air 08/12/23 11:00 97 08/12/23 10:55 67 18 109/51 L 93 Room Air 08/12/23 07:27 36.6 C 101 H 17 101/46 L 92 Room Air O2 Del Method 08/12/23 15:08 08/12/23 11:00 Room Air 08/12/23 10:55 08/12/23 07:27 Laboratory Results 08/12/23 05:33 08/12/23 05:33 PG Care Time/CCT Total # of Minutes Spent Total Time Spent with Patient: I personally spent: 55 minutes today on clinical care activities including: reviewing chart notes and vital signs, reviewing past records reviewing labs reviewing studies examining and counseling the patient counseling the patient's family x 40 minutes in room writing orders documentation Coding Level of Care Code 46274 SUB INP/OBS CARE 3/50MIN Diagnoses Generalized weakness R53.1 Pancytopenia D61.818 Lung cancer C34.90 Primary sclerosing cholangitis K83.0 Metabolic acidosis, normal anion gap (NAG) E87.20 Urethral stricture N35.919 Type 2 diabetes mellitus with hyperglycemia, without long-term current use of insulin E11.65 Diabetes mellitus technician terminal and repeater insulin use: without penitentiary use Diabetes mellitus complication status: with hyperglycemia CAD (coronary artery disease) I25.10 Chronic ITP (idiopathic thrombocytopenia) D69.3 (7) Type 2 diabetes mellitus Diabetes mellitus penitentiary insulin use: without penitentiary use Diabetes mellitus complication status: with hyperglycemia Qualified Code(s): E11.65 - Type 2 diabetes mellitus with hyperglycemia
[2023-08-12] MEDS: OLANZapine ZYDIS 5 MG ORALLY DIS. TAB PO PRN (20:38)
[2023-08-12] MEDS: METOPROLOL TARTRATE 25 MG TAB PO SCH (23:00)
[2023-08-12] MEDS ORDERED: METOPROLOL TARTRATE 1 MG/ML VIAL IV PRN (23:37)
[2023-08-12] MEDS: METOPROLOL TARTRATE 1 MG/ML VIAL IV PRN (23:54)
[2023-08-13 09:03] LABS: Hematocrit (blood only) 25.7 % (42.0-52.0); Hemoglobin 8.5 g/dl (14.0-18.0); Mean Corpuscular Hemoglobin 39.4 pg (25.0-34.0); Mean Corpuscular Hgb Conc 33.1 g/dL (32.0-36.0); Nucleated RBC # (auto) 0.02 K/uL (0.00-0.12); Nucleated RBC % (auto) 0.5 %; Platelet Count 17 K/uL (130-400); RDW Coefficient of Variation 22.5 % (11.5-14.5); RDW Standard Deviation 99.2 fL (36.4-46.3); Red Blood Count 2.16 M/uL (4.70-6.10); White Blood Count 4.07 K/ul (4.8-10.8)
[2023-08-13 09:06] LABS: Albumin Globulin Ratio 0.8 (0.9-2); Albumin Level 2.5 gm/dl (3.4-5.0); BUN Creatinine Ratio 50.5 (10-20); Bilirubin,Total 3.2 mg/dl (0.2-1.0); Calcium 9.4 mg/dl (8.6-10.3); Creatinine Clr Calc Pharmacy 58.1 ml/min; Est GFR (African American) 86.5 ml/min; Est GFR (Non-African American) 74.6 ml/min; Globulin 3.3 gm/dl (2.5-4.0); Potassium 4.4 mmol/L (3.5-5.1); Total Protein 5.8 gm/dl (6.0-8.3)
[2023-08-13 09:16] LABS: Anisocytosis Present; Immature Granulocytes # (auto) 0.01 K/uL (0.01-0.20); Immature Granulocytes % (auto) 0.2 %; Lymphocytes # (auto) 0.27 K/uL (1.20-3.40); Lymphocytes % (auto) 6.6 %; Macrocytosis Present; Monocytes # (auto) 0.28 K/uL (0.11-0.59); Monocytes % (auto) 6.9 %; Neutrophils # (auto) 3.51 K/uL (1.40-6.50); Neutrophils % (auto) 86.3 %; Ovalocytes 1+
--- NOTE | 2023-08-13 09:53 | Nephrology Progress Note ---
Date of Service August 13, 2023 Assessment & Plan (1) Hyperkalemia: (2) Metabolic acidosis: (3) Anemia: (4) Generalized weakness: (5) Acute confusion: (6) Thrombocytopenia: (7) Bilateral edema of lower extremity: (8) Hypotension: Plan 83 y o M with multiple complex medical issues including pancytopenia with h/o ITP, history of lung cancer, recurrent anemia requiring blood transfusion, admitted with generalized weakness, edema, confusion and noted to have multiple electrolyte abnormality and pancytopenia including potassium of 5.6, bicarb 18. Kidney function relatively stable, creatinine 1.2 mg/dl. Metabolic acidosis and hyperkalemia could be secondary to type IV RTA or other etiology. Overall clinically improving. Potassium normalized. Bicarb improved on sodium bicarbonate. Lower extremity edema improved, weight slowly going down. Kidney function stable. Blood pressure fair. -- Continue Lasix 40 mg IV daily, close monitoring of renal function and electrolyte as he has significant risk for electrolyte abnormality and worsening renal function with high-dose diuretics. Consider changing Lasix to 40 mg orally daily starting tomorrow . Accurate intake and output. --Continue sodium bicarbonate 2 tablets twice a day No further follow-up with nephrology inpatient or as an outpatient is needed at this time, will sign off but will be available if there is any other concern. Thank you for the consult. Admission and Anticipated Discharge Date Admission Date: August 11, 2023 Jina Romero was seen and evaluated this am with and daughter at bedside. He was awake, alert and comfortable but continues to be somewhat confused. Responding well to diuretic, lower extremity edema slowly improving, weight down to 82 kg, electrolyte improved, potassium normalized, bicarb improved and creatinine staying normal. Blood pressure acceptable. Review of Systems Review of Systems: Detailed review of system was not possible because of confusion. Physical Exam Constitutional: WD/WN, vitals as above no acute distress Eyes: + anicteric sclerae Respiratory: no respiratory distress Auscultation: lungs clear to auscultation bilaterally Cardiovascular: Rate/Rhythm: regular rate and regular rhythm Heart Sounds: normal S1 and normal S2 Extremities: + edema (2+ b/l LE edema ) Gastrointestinal (Abdomen): Percussion/Palpation: abdomen soft; abdomen nontender Musculoskeletal: Extremities: extremities normal to inspection Skin: no rashes, warm and dry Results & Data Vital Signs (Past 12 Hours) Vital Signs Temp Pulse Pulse Resp BP BP Pulse Ox 08/13/23 08:03 36.3 C L 99 H 23 114/61 99 08/13/23 03:00 77 22 121/70 98 08/13/23 00:09 107 H 111/50 L 08/12/23 23:54 121 H 110/70 08/12/23 23:00 36.4 C L 121 H 24 110/70 90 08/12/23 22:15 89 O2 Del Method 08/13/23 08:03 Room Air 08/13/23 03:00 Room Air 08/13/23 00:09 08/12/23 23:54 08/12/23 23:00 Room Air 08/12/23 22:15 PG Care Time/CCT Total # of Minutes Spent Total Time Spent with Patient: Total time spent is greater than 50% in coordination of care (as documented) at patient's floor/unit and/or counseling patient: Coding Level of Care Code 14448 SUB INP/OBS CARE 2/35MIN Diagnoses Hyperkalemia E87.5 Metabolic acidosis E87.20 Anemia D64.9 Generalized weakness R53.1 Acute confusion R41.0 Thrombocytopenia D69.6 Bilateral edema of lower extremity R60.0 Hypotension I95.9
[2023-08-13] MEDS: METOPROLOL TARTRATE 50 MG TAB PO SCH (13:02)
--- NOTE | 2023-08-13 17:49 | Hospitalist Progress Note ---
Date of Service August 13, 2023 Assessment & Plan (1) Generalized weakness: Plan: 83 y/o with complex medical history including lung cance s/p SBRT to bilateral lesions, PSC and resultant cirrhosis with pancytopenia, history of colectomy for UC with ileostomy. Recently he has had general decline with progressive generalized weakness and fluid retention with onset of anasarca and metabolic acidosis. Came to ED with weakness, decreased mental status and progressive edema. Started on cefepime at admission for suspected UTI however urine culture is negative. Weakness, fatigue, acute toxic metabolic encephalopathy, anasarca - transfused on admission for symptomatic anemia, expected rise in Hg, stable today 8.5 - started on cefepime/daptomycin at admission for possible infection - stopped since urine culture negative, strep in blood culture appears to be contaminant, no symptoms referrable to an infection - acute encephalopathy present on admission, worsened after dose of 0.5 mg IV lorazepam given for acute agitation first night in hospital. - added to allergies list - PRN low dose olanzapine for nighttime agitation/ - reviewed medlist and avoid sedating, neurotoxic agents. - check ammonia level = normal - diuresing with IV lasix for anasarca, improvement in edema thus far, collar turner consulted - discussed with Dr. Ayala - 1-2 more days IV diuretics then transition to oral. Tolerating current IV lasix well, renal function and electrolytes reviewed on BMP stable - reviewed discharge summary from hospitalization at [facility] 06/15-06/27/24 developed acute diastolic HF during that admission and was diuresed that admission, not discharged on any diuretics - AM CMP (2) Pancytopenia: Plan: Pancytopenia - 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 Longstanding. Reviewed clinic notes from his oncologist Dr. Bert Paetl [facility] - heme/onc notes do NOT mention history of ITP, so it seems he is not thought to have this Suspect contributory symptomatic anemia with hemoglobin of 7.1, transfused as above. No evidence of bleeding. Has required blood transfusions and iron infusions historically. Last ferritin 07/22/2019 73.5 CBC daily (3) Lung cancer: Plan: Left lower lobe well-differentiated mucinous adenocarcinoma, right upper lobe nodule 1.9 cm likely to be cancer but has not been biopsied S/p SBRT of both lesions by at [facility], following [place] [facility] [place] At last hospitalization with transfer [place] [facility] [place] had his pleural effusion tapped, this did not show evidence of malignant cells/malignant exudative effusion at that time - Records reviewed, follow up with his oncologist Dr. Bert Fisher (4) Primary sclerosing cholangitis: Plan: History of cirrhosis, sclerosing cholangitis. This has been followed at [facility] and also has director outcomes in [place] AST ALT are normal, bilirubin near patient's baseline though lydia to 3, alk phos near patient's baseline - he has no RUQ pain, no fever, cholangitis seems unlikely, CMP stable/unchanged today bili 3.2 Ursodiol continued (5) Metabolic acidosis, normal anion gap (NAG): Plan: History of chronic normal anion gap acidosis VBG 7.29/34/44/16 consistent with incompletely compensated metabolic acidosis and underlying respiratory alkalosis -could be type 4 RTA, potentially could be related to ileostomy discussed with collar turner - recommends continuing Na-bicarb and oral diuretics long ter (6) Urethral stricture: Plan: Urethral stricture, penile edema, LUTS Had periurethral abscess that required prolonged antibiotics summer PVR PVR at last follow-up 07/29/2023 was less than 10 cc Patient presents with creatinine of 1.21 on admission, similar to previous bladder scan will NOT be accurate because of anasarca and ascites. CT on admission ruled out bladder outlet obstruction. Continue monitoring UOP and Cr - Cr and UOP remains stable (7) Type 2 diabetes mellitus: Plan: Last A1c 6.7% Conservative sliding scale ordered, no basal due to increased risk of hypoglycemia Glucose checks AC/at bedtime Boost ordered (8) CAD (coronary artery disease): Plan: Trop normal range x 2 without chest pain and downtrending post fluids Aspirin continued, patient is at increased bleeding with thrombocytopenia Metoprolol temporarily held due to borderline hypotension and bradycardia EKG without acute ischemic changes. Patient does have first-degree AV block with [place] similar to 1 month ago, although this is new compared to 04/2023. Beta- cecilia held, Lyme added. No transaminitis to suggest anaplasmosis -thought to have rapid Afib AM of 08/12, however, leather cleaner read EKG and was sinus tachycardia with PAC's (9) Atrial fibrillation: Plan: Possible atrial fibrillation with rapid ventricular rate night of 08/11-6 Review of tele monitor and EKGs - EKGs read by leather cleaner - sinus tachy 1st degree AVB with PACs Tele with irregular rhythm possibly afib but also with PACs and some clear looking p-waves Reviewed recent TTE done in june 2023 at [facility] -normal EF, no significant valvular disease Not a candidate for chronic anticoagulation because of severe chronic thrombocyotpenia. Discussed this with his and associated stroke risk. Continue metoprolol - resumed home dose. On tartrate intermediate designer. change to succinate if rate control problems. -follow up with his outpatient leather cleaner Plan Replaced mild hypomagnesemia with 1g IV 2/6 PT/OT ordered. His plans to take him home, his delirium worsens when in institutional settings but improves rapidly at home DVT prophylaxis: no chemoppx because of chronic thrombocytopenia, SCDs as able Reviewed outside records from [facility] heme/onc clinic, recent DC Summary, also notes from [facility] PCP clinic Admission and Anticipated Discharge Date Admission Date: August 11, 2023 Subjective Seen this AM with his in room. Remains confused but improved compared to yesterday. Edema significantly improved on diuretics. No cough, chest or abdominal pain or dysuria. Physical Exam 2 Physical Exam: PHYSICAL EXAMINATION Last 24h vital signs reviewed, see documentation in flowsheet General: comfortable appearing, no distress HEENT: Normocephalic, atraumatic, pupils round and equal, sclerae anicteric, no conjunctival injection, moist mucus membranes Lungs: Normal respiratory effort. Clear to auscultation bilaterally. No RRW Heart: irreg rate and rhythm, no murmurs. No JVD Abdomen: Soft, nontender, nondistended. Bowel sounds present. No SP tenderness. Ostomy L lower abdomen, stool in bag. Large L lower abdominal hernia, soft nontender. Exam unchanged 08/13 Extremities: Warm, dry, well-perfused. 2+ lower extremity edema to thighs improved Neuro: Alert and oriented x self, family, better to situation and recent events but still not clear that he's in the hospital, confused, speech intact, face symmetric, moves 4 extremities well Psych: normal behavior, not agitated Results & Data Results & Data Vital Signs (Past 12 Hours) Vital Signs Temp Pulse Resp BP Pulse Ox O2 Del Method O2 Del Method 08/13/23 16:03 36.3 C L 69 18 121/62 96 Room Air 08/13/23 11:07 36.2 C L 108 H 21 132/72 95 Room Air 08/13/23 11:00 Room Air 08/13/23 08:03 36.3 C L 99 H 23 114/61 99 Room Air Laboratory Results 08/13/23 08:29 08/13/23 08:29 PG Care Time/CCT Total # of Minutes Spent Total Time Spent with Patient: I personally spent: 55 minutes today on clinical care activities including: reviewing chart notes and vital signs reviewing labs reviewing studies discussion with healthcare consultant discussion with healthcare or medical examining and counseling the patient counseling the patient's family reviewing outside records writing orders documentation Coding Level of Care Code 33375 SUB INP/OBS CARE 3/50MIN Diagnoses Generalized weakness R53.1 Pancytopenia D61.818 Lung cancer C34.90 Primary sclerosing cholangitis K83.0 Metabolic acidosis, normal anion gap (NAG) E87.20 Urethral stricture N35.919 Type 2 diabetes mellitus with hyperglycemia, without long-term current use of insulin E11.65 Diabetes mellitus intermediate designer insulin use: without intermediate designer use Diabetes mellitus complication status: with hyperglycemia CAD (coronary artery disease) I25.10 Atrial fibrillation I48.91 (7) Type 2 diabetes mellitus Diabetes mellitus senior living insulin use: without intermediate designer use Diabetes mellitus complication status: with hyperglycemia Qualified Code(s): E11.65 - Type 2 diabetes mellitus with hyperglycemia
[2023-08-13] MEDS: MELATONIN 3 MG TAB PO PRN (22:14)
[2023-08-14 05:45] LABS: Albumin Globulin Ratio 0.7 (0.9-2); Albumin Level 2.3 gm/dl (3.4-5.0); BUN Creatinine Ratio 48.9 (10-20); Bilirubin,Total 3.1 mg/dl (0.2-1.0); Calcium 9.2 mg/dl (8.6-10.3); Est GFR (African American) 89.9 ml/min; Est GFR (Non-African American) 77.6 ml/min; Globulin 3.2 gm/dl (2.5-4.0); Potassium 3.9 mmol/L (3.5-5.1); Total Protein 5.5 gm/dl (6.0-8.3)
[2023-08-14 06:01] LABS: Anisocytosis Present; Eosinophils # (auto) 0.01 K/uL (0.00-0.50); Eosinophils % (auto) 0.2 %; Hematocrit (blood only) 24.9 % (42.0-52.0); Hemoglobin 8.3 g/dl (14.0-18.0); Immature Granulocytes # (auto) 0.01 K/uL (0.01-0.20); Immature Granulocytes % (auto) 0.2 %; Lymphocytes # (auto) 0.46 K/uL (1.20-3.40); Lymphocytes % (auto) 9.9 %; Macrocytosis Present; Mean Corpuscular Hgb Conc 33.3 g/dL (32.0-36.0); Mean Corpuscular Volume 116.9 fL (80.0-100.0); Monocytes # (auto) 0.29 K/uL (0.11-0.59); Monocytes % (auto) 6.3 %; Neutrophils # (auto) 3.87 K/uL (1.40-6.50); Neutrophils % (auto) 83.4 %; Nucleated RBC # (auto) 0.03 K/uL (0.00-0.12); Nucleated RBC % (auto) 0.6 %; Ovalocytes 1+; Platelet Count 17 K/uL (130-400); RDW Coefficient of Variation 21.8 % (11.5-14.5); RDW Standard Deviation 95.6 fL (36.4-46.3); Red Blood Count 2.13 M/uL (4.70-6.10); White Blood Count 4.64 K/ul (4.8-10.8)
--- NOTE | 2023-08-14 18:08 | Hospitalist Progress Note ---
Date of Service August 14, 2023 Assessment & Plan (1) Generalized weakness: Plan: 83 y/o with complex medical history including lung cance s/p SBRT to bilateral lesions, PSC and resultant cirrhosis with pancytopenia, history of colectomy for UC with ileostomy. Recently he has had general decline with progressive generalized weakness and fluid retention with onset of anasarca and metabolic acidosis. Came to ED with weakness, decreased mental status and progressive edema. Started on cefepime at admission for suspected UTI however urine culture is negative. Weakness, fatigue, acute toxic metabolic encephalopathy, anasarca reviewed discharge summary from hospitalization at [facility] 06/15-06/27/24 developed acute diastolic HF during that admission and was diuresed that admission, not discharged on any diuretics - transfused on admission for symptomatic anemia, expected rise in Hg, stable today 8.5 - started on cefepime/daptomycin at admission for possible infection - stopped since urine culture negative, strep in blood culture appears to be contaminant, no symptoms referrable to an infection - acute encephalopathy present on admission, worsened after dose of 0.5 mg IV lorazepam given for acute agitation first night in hospital. - added to allergies list - PRN low dose olanzapine for nighttime agitation/ing - none given overnight - reviewed medlist and avoid sedating, neurotoxic agents. 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 Longstanding. Reviewed clinic notes from his oncologist Dr. Bert Fisher - heme/onc notes do NOT mention history of ITP, so it seems he is not thought to have this Suspect contributory symptomatic anemia with hemoglobin of 7.1, transfused as above. No evidence of bleeding. Has required blood transfusions and iron infusions historically. Last ferritin 07/22/2019 73.5 CBC daily - counts remain stable Plt 17 - continue with weekly monitoring CBC and iron levels with his outpatient fish hatchery worker (3) Lung cancer: Plan: Left lower lobe well-differentiated mucinous adenocarcinoma, right upper lobe nodule 1.9 cm likely to be cancer but has not been biopsied S/p SBRT of both lesions by at [facility], following with [facility] oncology At last hospitalization with transfer to [facility] patient had his pleural effusion tapped, this did not show evidence of malignant cells/malignant exudative effusion at that time - Records reviewed, follow up with his oncologist Dr. Bert Fisher (4) Primary sclerosing cholangitis: Plan: History of cirrhosis, sclerosing cholangitis. This has been followed at [facility] and also has eco industrial development consultant in [place] AST ALT are normal, bilirubin near patient's baseline though lydia to 3, alk phos near patient's baseline - he has no RUQ pain, no fever, cholangitis seems unlikely, CMP stable/unchanged today bili 3.2 Ursodiol continued - CMP unchanged today (5) Metabolic acidosis, normal anion gap (NAG): Plan: History of chronic normal anion gap acidosis VBG 7.29/34/44/16 consistent with incompletely compensated metabolic acidosis and underlying respiratory alkalosis -could be type 4 RTA, potentially could be related to ileostomy discussed with technical sales specialist - recommends continuing Na-bicarb and oral diuretics custodial -bicarb improved to 20 (6) Urethral stricture: Plan: Urethral stricture, penile edema, LUTS Had periurethral abscess that required prolonged antibiotics summer PVR PVR at last follow-up 07/29/2023 was less than 10 cc Patient presents with creatinine of 1.21 on admission, similar to previous, improved to 0.9 with diuresis bladder scan will NOT be accurate because of anasarca and ascites. CT on admission ruled out bladder outlet obstruction. Continue monitoring UOP and Cr - Cr and UOP remains stable (7) Type 2 diabetes mellitus: Plan: Last A1c 6.7% Conservative sliding scale ordered, no basal due to increased risk of hypoglycemia Glucose checks AC/at bedtime Boost ordered (8) CAD (coronary artery disease): Plan: Trop normal range x 2 without chest pain and downtrending post fluids Aspirin continued, patient is at increased bleeding with thrombocytopenia Metoprolol temporarily held due to borderline hypotension and bradycardia EKG without acute ischemic changes. Patient does have first-degree AV block with HI similar to 1 month ago, although this is new compared to 04/2023. Beta- cecilia held, Lyme added. No transaminitis to suggest anaplasmosis (9) Atrial fibrillation: Plan: Possible atrial fibrillation with rapid ventricular rate night of 2/5-6 Review of tele monitor and EKGs - EKGs read by materials handling equipment operator - sinus tachy 1st degree AVB with PACs Tele with irregular rhythm possibly afib but also with PACs and some clear looking p-waves Reviewed recent TTE done in june 2023 at [place] -normal EF, no significant valvular disease Not a candidate for chronic anticoagulation because of severe chronic thrombocyotpenia. Discussed this with his and associated stroke risk. Continue metoprolol - resumed home dose. On tartrate custodial. change to succinate if rate control problems. -follow up with his outpatient materials handling equipment operator Plan Replaced mild hypomagnesemia with 1g IV 2/6 PT/OT ordered. His plans to take him home, resume home health PT DVT prophylaxis: no chemoppx because of chronic thrombocytopenia, SCDs as able Reviewed outside records from [facility] heme/onc clinic, recent DC Summary, also notes from [facility] PCP clinic Admission and Anticipated Discharge Date Admission Date: August 11, 2023 Subjective feels much better, abdominal edema resolved and leg edema significantly improved. mentation much improved according to family at bedside - now oriented to hospital. Did well with PT Physical Exam 2 Physical Exam: PHYSICAL EXAMINATION Last 24h vital signs reviewed, see documentation in flowsheet General: comfortable appearing, no distress, sitting up in chair HEENT: Normocephalic, atraumatic, pupils round and equal, sclerae anicteric, no conjunctival injection, moist mucus membranes Lungs: Normal respiratory effort. Clear to auscultation bilaterally. No RRW Heart: irreg rate and rhythm, no murmurs. No JVD Abdomen: Soft, nontender, nondistended. Bowel sounds present. Ostomy L lower abdomen Extremities: Warm, dry, well-perfused. 1-2+ lower extremity edema to knees much improved Neuro: Alert and oriented x self, family, situation and hospital, speech intact, face symmetric, moves 4 extremities well Psych: normal behavior, normal affect Results & Data Results & Data Vital Signs (Past 12 Hours) Vital Signs Temp Pulse Resp BP Pulse Ox O2 Del Method O2 Del Method 08/14/23 15:50 55 L 19 119/68 92 Room Air 08/14/23 11:30 36.9 C 92 H 16 109/71 93 Room Air 08/14/23 11:00 Room Air 08/14/23 07:43 78 20 122/71 92 Room Air Laboratory Results 08/14/23 04:09 08/14/23 04:09 PG Care Time/CCT Total # of Minutes Spent Total Time Spent with Patient: Total time spent is greater than 50% in coordination of care (as documented) at patient's floor/unit and/or counseling patient: Coding Level of Care Code 25649 SUB INP/OBS CARE 2/35MIN Diagnoses Generalized weakness R53.1 Pancytopenia D61.818 Lung cancer C34.90 Primary sclerosing cholangitis K83.0 Metabolic acidosis, normal anion gap (NAG) E87.20 Urethral stricture N35.919 Type 2 diabetes mellitus with hyperglycemia, without long-term current use of insulin E11.65 Diabetes mellitus tire worker insulin use: without tire worker use Diabetes mellitus complication status: with hyperglycemia CAD (coronary artery disease) I25.10 Atrial fibrillation I48.91 (7) Type 2 diabetes mellitus Diabetes mellitus custodial insulin use: without custodial use Diabetes mellitus complication status: with hyperglycemia Qualified Code(s): E11.65 - Type 2 diabetes mellitus with hyperglycemia
[2023-08-15 05:25] LABS: Albumin Globulin Ratio 0.7 (0.9-2); Albumin Level 2.2 gm/dl (3.4-5.0); BUN Creatinine Ratio 46.6 (10-20); Bilirubin,Total 2.8 mg/dl (0.2-1.0); Calcium 9.4 mg/dl (8.6-10.3); Creatinine Clr Calc Pharmacy 61.4 ml/min; Est GFR (African American) 90.8 ml/min; Est GFR (Non-African American) 78.3 ml/min; Globulin 3.3 gm/dl (2.5-4.0); Potassium 3.8 mmol/L (3.5-5.1); Total Protein 5.5 gm/dl (6.0-8.3)
[2023-08-15] MEDS: FUROSEMIDE 40 MG TAB PO SCH (10:00)
--- NOTE | 2023-08-15 16:47 | Hospitalist Progress Note ---
Date of Service August 15, 2023 Assessment & Plan (1) Generalized weakness: Plan: 83 y/o with complex medical history including lung cance s/p SBRT to bilateral lesions, PSC and resultant cirrhosis with pancytopenia, history of colectomy for UC with ileostomy. Recently he has had general decline with progressive generalized weakness and fluid retention with onset of anasarca and metabolic acidosis. Came to ED with weakness, decreased mental status and progressive edema. Started on cefepime at admission for suspected UTI however urine culture is negative. Weakness, fatigue, acute toxic metabolic encephalopathy, anasarca reviewed discharge summary from hospitalization at [facility] 06/15-06/27/24 developed acute diastolic HF during that admission and was diuresed that admission, not discharged on any diuretics - transfused on admission for symptomatic anemia, expected rise in Hg, stable today 8.5 - started on cefepime/daptomycin at admission for possible infection - stopped since urine culture negative, strep in blood culture appears to be contaminant, no symptoms referrable to an infection - acute encephalopathy present on admission, worsened after dose of 0.5 mg IV lorazepam given for acute agitation first night in hospital. - added to allergies list - PRN low dose olanzapine for nighttime agitation/ing - none given overnight - reviewed medlist and avoid sedating, neurotoxic agents. - checked ammonia level = normal - diuresed well with IV lasix for anasarca - changed to lasix 40 mg po today - potassium normal renal function stable today - AM CBC BMP - discussed with his outpatient sample selector who agreed to add BMP on to his next weekly labs then again apx 2 weeks later - follow up with mixed signal design engineer Dr Ayala and his PCP - hoped for discharge today but had midday episode where he was alert but less interactive (seemed like refusal), detailed neuro exam nonfocal, later in day was interacting more normally - likely waxing and waning of his delirium dc home tomorrow if remaining stable (2) Pancytopenia: Plan: Pancytopenia - 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 Longstanding. Reviewed clinic notes from his oncologist Dr. Bert Fisher - heme/onc notes do NOT mention history of ITP, so it seems he is not thought to have this Suspect contributory symptomatic anemia with hemoglobin of 7.1, transfused as above. No evidence of bleeding. Has required blood transfusions and iron infusions historically. Last ferritin 07/22/2019 73.5 CBC in AM - continue with weekly monitoring CBC and iron levels with his outpatient sample selector (3) Lung cancer: Plan: Left lower lobe well-differentiated mucinous adenocarcinoma, right upper lobe nodule 1.9 cm likely to be cancer but has not been biopsied S/p SBRT of both lesions by at [facility], following with [facility] oncology At last hospitalization with transfer to [facility] patient had his pleural effusion tapped, this did not show evidence of malignant cells/malignant exudative effusion at that time - Records reviewed, follow up with his oncologist Dr. Bert Fisher (4) Primary sclerosing cholangitis: Plan: History of cirrhosis, sclerosing cholangitis. This has been followed at [facility] and also has joint yarner in [place] AST ALT are normal, bilirubin near patient's baseline though lydia to 3, alk phos near patient's baseline - he has no RUQ pain, no fever, cholangitis seems unlikely, CMP stable Ursodiol continued - CMP unchanged today - bili slightly improved (5) Metabolic acidosis, normal anion gap (NAG): Plan: History of chronic normal anion gap acidosis VBG 7.29/34/44/16 consistent with incompletely compensated metabolic acidosis and underlying respiratory alkalosis -could be type 4 RTA, potentially could be related to ileostomy discussed with mixed signal design engineer - recommends continuing Na-bicarb and oral diuretics cd manufacturing supervisor -bicarb improved to 22 (6) Urethral stricture: Plan: Urethral stricture, penile edema, LUTS Had periurethral abscess that required prolonged antibiotics summer PVR PVR at last follow-up 07/29/2023 was less than 10 cc Patient presents with creatinine of 1.21 on admission, similar to previous, improved to 0.9 with diuresis bladder scan will NOT be accurate because of anasarca and ascites. CT on admission ruled out bladder outlet obstruction. Continue monitoring UOP and Cr - Cr and UOP remains stable had MRSA and hannah from penile swab in ED - likely colonization, reexamined today and no lesions inflammation or cellulitis. Urine culture was negative. (7) Type 2 diabetes mellitus: Plan: Last A1c 6.7% Conservative sliding scale ordered, no basal due to increased risk of hypoglycemia Glucose checks AC/at bedtime -BG 2/ a little labile but eating inconsistently no changes made Boost ordered (8) CAD (coronary artery disease): Plan: Trop normal range x 2 without chest pain and downtrending post fluids Aspirin continued, patient is at increased bleeding with thrombocytopenia Metoprolol temporarily held due to borderline hypotension and bradycardia EKG without acute ischemic changes. Patient does have first-degree AV block with NM similar to 1 month ago, although this is new compared to 04/2023. Beta- cecilia held, Lyme negative. - resume metoprolol (9) Atrial fibrillation: Plan: Possible atrial fibrillation with rapid ventricular rate night of /-6 Review of tele monitor and EKGs - EKGs read by special procedures tech - sinus tachy 1st degree AVB with PACs Tele with irregular rhythm possibly afib but also with PACs and some clear looking p-waves Reviewed recent TTE done in june 2023 at [place] -normal EF, no significant valvular disease Not a candidate for chronic anticoagulation because of severe chronic thrombocyotpenia. Discussed this with his and associated stroke risk. Continue metoprolol - resumed home dose. On tartrate cd manufacturing supervisor. change to succinate if rate control problems. -follow up with his outpatient special procedures tech Plan Replaced mild hypomagnesemia with 1g IV 2/6 PT/OT ordered. His plans to take him home, resume home health PT DVT prophylaxis: no chemoppx because of chronic thrombocytopenia, SCDs as able Reviewed outside records from [facility] heme/onc clinic, recent DC Summary, also notes from [facility] PCP clinic I've updated his daily, she is always at the bedside Admission and Anticipated Discharge Date Admission Date: August 11, 2023 Subjective Seen midday and family reports that he was laughing and smiling early on but then really climbed up refused to take his meds or eat anything through the middle of the day would not drink anything either. When I talked to him he did verbalize and said that his abdominal symptoms and hernia were about the same as they ever were, family reports he also spoke with his daughter went on FaceTime Leg swelling continues to improve denies any abdominal pain chest pain Physical Exam 2 Physical Exam: PHYSICAL EXAMINATION Last 24h vital signs reviewed, see documentation in flowsheet General: comfortable appearing, no distress, sitting up in bed HEENT: Normocephalic, atraumatic, pupils round and equal, sclerae anicteric, no conjunctival injection, moist mucus membranes Lungs: Normal respiratory effort. Clear to auscultation bilaterally. No RRW Heart: irreg rate and rhythm, no murmurs. No JVD Abdomen: Soft, nontender, nondistended. Ostomy L lower abdomen with stool output, left lower abdominal hernia soft nontender bowel sounds present Extremities: Warm, dry, well-perfused. 1-2+ lower extremity edema to knees much improved -continues improved today Neuro: Alert and appears to be refusing to interact rather than unable, often staring straight ahead but sometimes cracks a smile, did make a verbal statement while he was present, speech intact, face appeared asymmetric however family says that he habitually will smile with the left side of his mouth and on detailed exam no facial paresis tongue midline shoulder shrug intact saddle stitch operator 5 out of 5 no pronator drift proximal strength 45 throughout distal lower extremities 5/5 Psych: Avoidant behavior, normal affect Results & Data Results & Data Vital Signs (Past 12 Hours) Vital Signs Temp Pulse Pulse Resp BP Pulse Ox O2 Del Method 08/15/23 16:09 36.3 C L 101 H 21 122/66 92 Room Air 08/15/23 11:21 36.2 C L 96 H 22 118/67 91 Room Air 08/15/23 09:21 91 H 20 118/61 93 Room Air 08/15/23 06:07 104 H Laboratory Results 08/14/23 04:09 08/15/23 04:13 PG Care Time/CCT Total # of Minutes Spent Total Time Spent with Patient: Total time spent is greater than 50% in coordination of care (as documented) at patient's floor/unit and/or counseling patient: Coding Level of Care Code 10722 SUB INP/OBS CARE 2/35MIN Diagnoses Generalized weakness R53.1 Pancytopenia D61.818 Lung cancer C34.90 Primary sclerosing cholangitis K83.0 Metabolic acidosis, normal anion gap (NAG) E87.20 Urethral stricture N35.919 Type 2 diabetes mellitus with hyperglycemia, without long-term current use of insulin E11.65 Diabetes mellitus cd manufacturing supervisor insulin use: without prison use Diabetes mellitus complication status: with hyperglycemia CAD (coronary artery disease) I25.10 Atrial fibrillation I48.91 (7) Type 2 diabetes mellitus Diabetes mellitus cd manufacturing supervisor insulin use: without prison use Diabetes mellitus complication status: with hyperglycemia Qualified Code(s): E11.65 - Type 2 diabetes mellitus with hyperglycemia
[2023-08-16 06:21] LABS: BUN Creatinine Ratio 47.9 (10-20); Calcium 9.8 mg/dl (8.6-10.3); Est GFR (Non-African American) 84.6 ml/min; Potassium 3.6 mmol/L (3.5-5.1)
[2023-08-16 06:26] LABS: Hemoglobin 8.8 g/dl (14.0-18.0); Mean Corpuscular Hemoglobin 39.5 pg (25.0-34.0); Mean Corpuscular Hgb Conc 33.8 g/dL (32.0-36.0); Mean Corpuscular Volume 116.6 fL (80.0-100.0); Nucleated RBC # (auto) 0.02 K/uL (0.00-0.12); Nucleated RBC % (auto) 0.6 %; Platelet Count 18 K/uL (130-400); RDW Coefficient of Variation 21.1 % (11.5-14.5); RDW Standard Deviation 91.5 fL (36.4-46.3); Red Blood Count 2.23 M/uL (4.70-6.10); White Blood Count 3.48 K/ul (4.8-10.8)
[2023-08-16] MEDS: METOPROLOL SUCC 25MG EXT REL TAB PO SCH (08:25)
[2023-08-16] MEDS: ACETAMINOPHEN 1,000 MG/100 ML VIAL IV STA (09:37)
[2023-08-16] MEDS: FIRST - Mouthwash BLM 119 ML PO SCH (12:01)
[2023-08-16 16:53] LABS: Albumin Level 2.3 gm/dl (3.4-5.0); Bilirubin Direct 1.6 mg/dl (0-0.2); Bilirubin,Total 3.1 mg/dl (0.2-1.0); Total Protein 5.7 gm/dl (6.0-8.3)
--- NOTE | 2023-08-16 17:57 | Hospitalist Progress Note ---
Date of Service August 16, 2023 Assessment & Plan (1) Generalized weakness: Plan: 83 y/o with complex medical history including lung cance s/p SBRT to bilateral lesions, PSC and resultant cirrhosis with pancytopenia, history of colectomy for UC with ileostomy. Recently he has had general decline with progressive generalized weakness and fluid retention with onset of anasarca and metabolic acidosis. Came to ED with weakness, decreased mental status and progressive edema. Started on cefepime at admission for suspected UTI however urine culture is negative. Weakness, fatigue, acute toxic metabolic encephalopathy, anasarca reviewed discharge summary from hospitalization at [facility] 06/15-06/27/24 developed acute diastolic HF during that admission and was diuresed that admission, not discharged on any diuretics - transfused on admission for symptomatic anemia, expected rise in Hg, stable today 8.5 - started on cefepime/daptomycin at admission for possible infection - stopped since urine culture negative, strep in blood culture appears to be contaminant, no symptoms referrable to an infection - acute encephalopathy present on admission, worsened after dose of 0.5 mg IV lorazepam given for acute agitation first night in hospital. - added to allergies list - PRN low dose olanzapine for nighttime agitation/ing - none given overnight - reviewed medlist and avoid sedating, neurotoxic agents. - checked ammonia level = normal - diuresed well with IV lasix for anasarca - changed to lasix 40 mg po, will decrease further to 20 mg since poor po intake - CBC CMP reviewed and stable unremarkable 08/16 - discussed with his outpatient diesel dinkey operator who agreed to add BMP on to his next weekly labs then again apx 2 weeks later - follow up with dairy equipment specialist Dr Ayala and his PCP Acute metabolic encephalopathy - waxing and waning consistent with acute delirium, persists - stopped insulin/BG checks - his reports he seems to have poorer mental status on insulin which seems unlikely but benefit of tight control is low at this point - reviewed medlist again, no sedating/delirogenic meds - repeat UA - consider repeat head CT because of the thrombocytopenia r/o SDH, however, neuro exam remains nonfocal and admitting head CT was negative (2) Pancytopenia: Plan: Pancytopenia - 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 Longstanding. Reviewed clinic notes from his oncologist Dr. Bert Patel [facility] - heme/onc notes do NOT mention history of ITP, so it seems he is not thought to have this Suspect contributory symptomatic anemia with hemoglobin of 7.1, transfused as above. No evidence of bleeding. Has required blood transfusions and iron infusions historically. Last ferritin 07/22/2019 73.5 CBC stable today, repeat in AM - continue with weekly monitoring CBC and iron levels with his outpatient diesel dinkey operator (3) Lung cancer: Plan: Left lower lobe well-differentiated mucinous adenocarcinoma, right upper lobe nodule 1.9 cm likely to be cancer but has not been biopsied S/p SBRT of both lesions by at [facility], following with [facility] oncology At last hospitalization with transfer to [facility] patient had his pleural effusion tapped, this did not show evidence of malignant cells/malignant exudative effusion at that time - Records reviewed, follow up with his oncologist Dr. Bert Fisher (4) Primary sclerosing cholangitis: Plan: History of cirrhosis, sclerosing cholangitis. This has been followed at [facility] and also has national business director in [place] AST ALT are normal, bilirubin near patient's baseline though lydia to 3, alk phos near patient's baseline - he has no RUQ pain, no fever, cholangitis seems unlikely, CMP stable Ursodiol continued - CMP unchanged 08/16 bilirubin alp phos stable elevations (5) Metabolic acidosis, normal anion gap (NAG): Plan: History of chronic normal anion gap acidosis VBG 7.29/34/44/16 consistent with incompletely compensated metabolic acidosis and underlying respiratory alkalosis -could be type 4 RTA, potentially could be related to ileostomy discussed with dairy equipment specialist - recommends continuing Na-bicarb and oral diuretics oysterman -bicarb improved to 22 (6) Urethral stricture: Plan: Urethral stricture, penile edema, LUTS Had periurethral abscess that required prolonged antibiotics summer PVR PVR at last follow-up 07/29/2023 was less than 10 cc Patient presents with creatinine of 1.21 on admission, similar to previous, improved to 0.9 with diuresis bladder scan will NOT be accurate because of anasarca and ascites. CT on admission ruled out bladder outlet obstruction. Continue monitoring UOP and Cr - Cr and UOP remains stable had MRSA and hannah from penile swab in ED - likely colonization, reexamined 08/15 and 08/16 no lesions inflammation or cellulitis. Urine culture was negative. (7) Type 2 diabetes mellitus: Plan: Last A1c 6.7% resume diet control and monitor BG with AM chem panel (8) CAD (coronary artery disease): Plan: Trop normal range x 2 without chest pain and downtrending post fluids Aspirin continued, patient is at increased bleeding with thrombocytopenia Metoprolol temporarily held due to borderline hypotension and bradycardia EKG without acute ischemic changes. Patient does have first-degree AV block with IN similar to 1 month ago, although this is new compared to 04/2023. Beta- cecilia held, Lyme negative. - continue metoprolol (9) Atrial fibrillation: Plan: Possible atrial fibrillation with rapid ventricular rate night of 08/11-6 Review of tele monitor and EKGs - EKGs read by quilt stuffer - sinus tachy 1st degree AVB with PACs Tele with irregular rhythm possibly afib but also with PACs and some clear looking p-waves Reviewed recent TTE done in june 2023 at [place] -normal EF, no significant valvular disease Not a candidate for chronic anticoagulation because of severe chronic thrombocyotpenia. Discussed this with his and associated stroke risk. - tachycardic overnight because he refused his po metoprolol yesterday Continue metoprolol - changed to succinate -follow up with his outpatient quilt stuffer Plan Replaced mild hypomagnesemia with 1g IV 2/6 PT/OT ordered. His plans to take him home, resume home health PT DVT prophylaxis: no chemoppx because of chronic thrombocytopenia, SCDs as able Reviewed outside records from [facility] heme/onc clinic, recent DC Summary, also notes from [facility] PCP clinic I've updated his daily, she is always at the bedside Admission and Anticipated Discharge Date Admission Date: August 11, 2023 Subjective a little more alert and cooperative today than yesterday but remains confused and not at baseline refused meds all yesterday so had rapid afib overnight IV metoprolol given refused AM meds and breakfast but eventually took them seen in AM and later afternoon with his has been speaking, but confused, picking at blankets Physical Exam 2 Physical Exam: PHYSICAL EXAMINATION Last 24h vital signs reviewed, see documentation in flowsheet General: comfortable appearing, no distress, sitting up in bed HEENT: Normocephalic, atraumatic, pupils round and equal, sclerae anicteric, no conjunctival injection, moist mucus membranes Lungs: Normal respiratory effort. Clear to auscultation bilaterally. No RRW Heart: irreg rate and rhythm, no murmurs. No JVD Abdomen: Soft, nontender, nondistended. Ostomy L lower abdomen with stool output, left lower abdominal hernia soft nontender bowel sounds present Extremities: Warm, dry, well-perfused. 1+ lower extremity edema to knees examined skin of feet, legs, groin, trunk no lesions or rashes, no erythema examined scrotum and penis - edema much improved no erythema or drainage Neuro: Alert and picking at blankets, makes short verbal statements, confused, face symmetric, jameel EOM, moves 4 extremities equally and spontaneously Psych: not agitated, normal affect Results & Data Results & Data Vital Signs (Past 12 Hours) Vital Signs Temp Pulse Pulse Resp BP Pulse Ox O2 Del Method 08/16/23 15:34 36.4 C L 73 18 124/78 96 Room Air 08/16/23 15:08 73 08/16/23 11:57 36.7 C 64 18 128/70 97 Room Air 08/16/23 10:19 Room Air 08/16/23 07:28 36.5 C 110 H 19 124/66 96 Room Air Laboratory Results 08/16/23 05:12 08/16/23 05:12 PG Care Time/CCT Total # of Minutes Spent Total Time Spent with Patient: Total time spent is greater than 50% in coordination of care (as documented) at patient's floor/unit and/or counseling patient: Coding Level of Care Code 56720 SUB INP/OBS CARE 2/35MIN Diagnoses Generalized weakness R53.1 Pancytopenia D61.818 Lung cancer C34.90 Primary sclerosing cholangitis K83.0 Metabolic acidosis, normal anion gap (NAG) E87.20 Urethral stricture N35.919 Type 2 diabetes mellitus with hyperglycemia, without long-term current use of insulin E11.65 Diabetes mellitus oysterman insulin use: without oysterman use Diabetes mellitus complication status: with hyperglycemia CAD (coronary artery disease) I25.10 Atrial fibrillation I48.91 (7) Type 2 diabetes mellitus Diabetes mellitus oysterman insulin use: without oysterman use Diabetes mellitus complication status: with hyperglycemia Qualified Code(s): E11.65 - Type 2 diabetes mellitus with hyperglycemia
[2023-08-17 05:25] LABS: Albumin Globulin Ratio 0.7 (0.9-2); Albumin Level 2.3 gm/dl (3.4-5.0); BUN Creatinine Ratio 41.9 (10-20); Bilirubin,Total 3.5 mg/dl (0.2-1.0); Calcium 10.1 mg/dl (8.6-10.3); Est GFR (African American) 97.5 ml/min; Est GFR (Non-African American) 84.1 ml/min; Globulin 3.5 gm/dl (2.5-4.0); Potassium 3.4 mmol/L (3.5-5.1); Total Protein 5.8 gm/dl (6.0-8.3)
[2023-08-17 05:29] LABS: Hematocrit (blood only) 25.7 % (42.0-52.0); Hemoglobin 8.5 g/dl (14.0-18.0); Mean Corpuscular Hemoglobin 39.2 pg (25.0-34.0); Mean Corpuscular Hgb Conc 33.1 g/dL (32.0-36.0); Mean Corpuscular Volume 118.4 fL (80.0-100.0); Nucleated RBC # (auto) 0.02 K/uL (0.00-0.12); Nucleated RBC % (auto) 0.7 %; Platelet Count 16 K/uL (130-400); RDW Coefficient of Variation 21.2 % (11.5-14.5); RDW Standard Deviation 94.3 fL (36.4-46.3); Red Blood Count 2.17 M/uL (4.70-6.10); White Blood Count 2.97 K/ul (4.8-10.8)
[2023-08-17] MEDS: FUROSEMIDE 20 MG TAB PO SCH (07:40)
[2023-08-17] MEDS: POTASSIUM CHLORIDE PWD 20 MEQ PACK PO ONE (09:45)
--- NOTE | 2023-08-17 18:29 | Discharge Summary ---
Date of Service August 17, 2023 Admission HPI Per Admitting Provider Jordy Tesfaye is an 83-year-old male past medical history of ITP, BPH, CKD 2, ulcerative colitis s/p ileostomy, chronic venous insufficiency, hypertension, primary sclerosing cholangitis, CAD with MS and PCI 2001 on aspirin, hyperlipidemia, lung cancer, and recent UTI discharged 07/22/2023 who at that time had progression of anemia with hemoglobin 6.2 treated with 2 units of transfusion and was subsequently discharged on discussion and preference to not be admitted due to having a hematology oncology appointment the following day. Per ER: He presents to the ER 08/11/2023 with weakness, confusion, and headache. Patient has had increased fatigue and somnolence and poor p.o. intake of 1 day. At ER assessment is found to be mildly hypotensive, remains neutropenic, is anemic with a hemoglobin of 7.1 with last hemoglobin 7.8 08/04, and remains with a platelet count of approximately 20 existent with his prior ITP. Calcium is mildly elevated, bicarb is mildly diminished, and anion gap is not elevated. No FORTUNATO is present however BUN/creatinine ratio was increased and patient is clinically volume contracted. CT of the head shows no acute findings. Chest x- ray shows vascular congestion and a small left pleural effusion, and a persistent right midlung density similar to prior suspicious for posttreatment change but requiring ongoing imaging for stability. Procalcitonin is negative UA is pending, and patient has been empirically covered with cefepime. Trop mildly elevated at 20.9. No EKG. Sodium bicarb was added a few weeks ago. Has a hx of urethral tear with catheters in the past, saw jess last week. +scrotal edema unchanged over several weeks, 3rd spaces with low albumin and decreased oncotoic pressure. Purulent discharge from the penisTHis morning weaker than normla, lightheaded on standing .BSG 190. Ate breakfast, but had poor appetite. Developed a mild headache and 'just didn't perk up and get better like normal' per . 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 Stoma output has not changed. Got 250cc bolus. Per Patient and : Jordy was seen at the bedside with his present. He is extremely somnolent and gives limited history, gives collateral at the bedside. She reports after his last transfer to [facility] he had an extensive amount of fluid drained with Lasix and eventually did become dehydrated and got a little bit of fluid back. Was noted that he had extensive leg and scrotal swelling due to third spacing although blood pressure had run low. Returned home on June 27 and did okay for about a week, used a wheelchair for 1 to 2 days, then was able to use a walker and start PT in the beginning of July however since that time has had a strength decline. Was seen recently in the ER and got 2 units of blood and then was discharged with follow-up to however patient seemed to continue to generally decline. Due to a metabolic acidosis he was started on sodium bicarbonate however this has seemed to produce/accelerate swelling in his legs and scrotum. His is very concerned that this is the cause of his decline and although recognizes that it is challenging to balance the side effects of this medicine against his renal function and acidosis. Would like to see nephrology while in-house. She reports that he has been more fatigued and declining up until this morning when he was much more lightheaded, extremely fatigued, and more sedated than normal. He did pee this morning urine was fairly dark and clouded. He has not had any fever, chills, sweats, chest pain, chest pressure, chest pain, falls, or head injuries. Had a little bit of blood in the nose when he had an oxygen cannula while in the ER the other week otherwise no bleeding. Was seen by urology for PVR and was noted to have significant penile and scrotal edema due to fluid shifting at that time. No signs of infection were noted. CT scan was reviewed and he was noted to have abnormal bladder wall thickening and was recommended for cystoscopy once edema was improved to evaluate this however this was deferred at that time due to the significant edema. UA was not indicative of infection. PVR 3 cc at that time. Medical History: Reviewed Medications: Reviewed Surgical History: Reviewed Family history: Reviewed Allergies: Reviewed Social History: Reviewed Code Status: Full code. Discussed with patient and at bedside. She acknowledges his decline and frailty, and notes that she is aware of the risk/benefits of cardiopulmonary resuscitation. At this time would like to remain full code, and in the event of a resuscitation effort that resulted in prolonged ventilation would want to reassess at that time to withdraw care if resuscitation obtained ROSC with to a level of quality that would not have been what Jordy wanted. 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 Clear to auscultation bilaterally. No RRW Heart: irreg rate and rhythm, no murmurs. No JVD Abdomen: Soft, nontender, nondistended. Ostomy L lower abdomen with stool output, left lower abdominal hernia soft nontender bowel sounds present Extremities: Warm, dry, well-perfused. 1+ lower extremity edema to knees Neuro: Alert and verbal interacting normally, oriented to basic situation with some persistent confusion, eating and taking meds, face symmetric, jameel EOM, moves 4 extremities equally and spontaneously Psych: not agitated, normal affect Discharge Data Allergies Allergy/AdvReac Type Severity Reaction Status Date / Time Egg Derived Allergy Intermediate RASH WITH Verified 08/11/23 12:21 LARGE QUANTITIES Influenza Virus Vaccines Allergy Intermediate AVOIDS DUE Verified 08/12/23 23:43 TO EGG ALLERGY latex Allergy Intermediate Unknown Verified 08/11/23 12:21 metformin Allergy Intermediate GI ISSUES Verified 08/11/23 12:21 pollen extracts Allergy Intermediate ITCHY Verified 08/11/23 12:21 EYES, SNEEZING, CONGESTION benzonatate AdvReac Severe Weakness Verified 08/11/23 12:21 [From Raeann Germain] codeine AdvReac Intermediate N/V, Verified 08/11/23 12:21 HYPOTENSTION fentanyl AdvReac Intermediate EXTREME Verified 08/11/23 12:21 NAUSEA; BP DROPS lorazepam AdvReac Intermediate Confusion Verified 08/12/23 18:34 meperidine AdvReac Intermediate N/V, Verified 08/11/23 12:21 HYPOTENSTION morphine AdvReac Intermediate N/V, Verified 08/11/23 12:21 HYPOTENSTION Consultations 08/11/23 13:31 Consult Nephrology Routine Ordered Studies 08/11/23 10:10 CT head/brain wo con Stat 08/11/23 16:59 CT abd pelvis wo con Routine Chest X-Ray 08/11/23 10:03 XR chest 1V portable CLINICAL HISTORY: Sepsis. Lung cancer. COMPARISON STUDY: Chest CT June 14, 2023. Chest radiograph August 04, 2023. FINDINGS: Right shoulder arthroplasty is noted. Skinfolds project over the chest. There is no pneumothorax. Small left pleural effusion is similar to prior exam. Elevation of left hemidiaphragm is unchanged. Left basilar opacity is similar to prior study. Right midlung density similar to prior exam. There is pulmonary vascular congestion. Cardiomediastinal silhouette is stable. IMPRESSION: 1. No significant change in appearance of the chest. Cardiomegaly with pulmonary vascular congestion a small left pleural effusion. 2. Persistent right midlung density, similar to prior study. This may reflect posttreatment change however should be assessed on follow-up imaging studies to ensure stability. ACT 112: Negative or not required by law. Electronically signed by: Edgardo Griggs M.D. 08/11/2023 11:[address] 08/11/23 10:10 CT OF THE HEAD WITHOUT CONTRAST CLINICAL HISTORY: headache, weakness, confusion COMPARISON STUDY: Head CT and MRI of the brain February 03, 2019. CTA of the head February 04, 2019. CT DOSE: 625.8 mGy.cm TECHNIQUE: Helical axial images of the head were obtained without IV contrast. Automated exposure control was utilized for the study. A dose lowering technique was utilized adhering to the principles of ALARA. FINDINGS: No acute intracranial hemorrhage, midline shift or mass effect is present. The ventricular system is stable. White matter hypodensities suggest small vessel disease. 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 The basal cisterns are patent. No extra-axial collections are present. There are no findings to suggest acute dural sinus thrombosis or acute territorial infarct. No significant calvarial abnormalities are present. Visualized portions of the sinuses and mastoid air cells are clear. IMPRESSION: No acute intracranial findings. ACT 112: Negative or not required by law. Electronically signed by: Edgardo Griggs M.D. 08/11/2023 10:34 AM Abdomen/Pelvis CT 08/11/23 16:59 CT OF THE ABDOMEN AND PELVIS WITHOUT CONTRAST CLINICAL HISTORY: Obstructive uropathy. COMPARISON STUDY: CT of the abdomen and pelvis July 22, 2023. TECHNIQUE: Axial images of the abdomen and pelvis were obtained without IV contrast. Images were reviewed in the axial, sagittal, and coronal planes. Automated exposure control was utilized for the study. A dose lowering technique was utilized adhering to the principles of ALARA. FINDINGS: Small bilateral pleural effusions are partially imaged on this exam. Left pleural effusion appears slightly loculated. Subpleural opacities favor atelectasis. Evaluation of the abdomen and pelvis is suboptimal on this unenhanced exam. Heterogeneity of the right hepatic lobe is similar to prior exams. Although nonspecific, this is likely related to underlying cirrhosis with fibrosis. The liver is cirrhotic. Pneumobilia is again noted. Liver is suboptimally assessed on this unenhanced exam. Splenomegaly is unchanged. Small amount of ascites is similar to prior CT. No fluid collections are present. There is body wall and mesenteric edema. No renal, ureteral or bladder calculi are present. There is no hydronephrosis. Indeterminate 1.1 cm right renal lesion is unchanged. There is no evidence for a bowel obstruction status post proctocolectomy with left lower quadrant ileostomy. 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 Bladder wall is irregular and trabeculated. This is chronic. Old lumbar spine compression fractures are again noted. No acute fractures are identified within the visualized skeletal structures. There has been no significant change in appearance of the abdomen or pelvis since prior CT. IMPRESSION: 1. No urinary calculi or hydronephrosis. 2. Cirrhosis with splenomegaly, a small amount of ascites and body wall and mesenteric edema, similar to prior CT. 3. Status post proctocolectomy with left lower quadrant ileostomy and parastomal hernia. No evidence for a bowel obstruction. 4. Small bilateral pleural effusions. ACT 112: Negative or not required by law. Electronically signed by: Edgardo Griggs M.D. 08/11/2023 6:46 PM 08/17/23 04:37 08/17/23 04:37 Hospital Course (1) Generalized weakness: 83 y/o with complex medical history including lung cancer s/p SBRT to bilateral lesions, PSC and resultant cirrhosis with pancytopenia, history of colectomy for UC with ileostomy. Recently he has had general decline with progressive generalized weakness and fluid retention with onset of anasarca and metabolic acidosis. Came to ED with weakness, decreased mental status and progressive edema. Started on cefepime at admission for suspected UTI however urine culture resulted negative. Weakness, fatigue, acute toxic metabolic encephalopathy, anasarca and metabolic acidosis reviewed discharge summary from hospitalization at [facility] 06/15-06/27/24 developed acute diastolic HF during that admission and was diuresed that admission, not discharged on any diuretics - transfused on admission for symptomatic anemia, expected rise in Hg, remained stable, no evidence of bleeding - started on cefepime/daptomycin at admission for possible infection - stopped since urine culture negative, strep in blood culture appears to be contaminant, no symptoms referable to an infection - acute encephalopathy present on admission, worsened after dose of 0.5 mg IV lorazepam given for acute agitation first night in hospital. Ammonia level was normal and has been historically. Waxed and waned which delayed discharge. Improved enough 08/17 for a "window" to get home with family - historically he does very poorly in institutional settings with delirium, improved rapidly once home, his has resources for home care and declines SNF - diuresed well with IV lasix for anasarca then changed to lasix 40 mg po with good response - discharged on this dose - I did NOT put him on potassium replacement since he had persistent hyperkalemia early in admission - per club former likely has type 4 RTA - discussed with his outpatient drill operator automatic who agreed to add BMP on to his next weekly labs then again apx 2 weeks later - follow up with club former Dr Ayala and his PCP (2) Pancytopenia: Pancytopenia - 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 Longstanding. Reviewed clinic notes from his oncologist Dr. Bert Fisher - heme/onc notes do NOT mention history of ITP, so it seems he is not thought to have this Suspect contributory symptomatic anemia with hemoglobin of 7.1, transfused as above. No evidence of bleeding. Has required blood transfusions and iron infusions historically. Last ferritin 07/22/2019 73.5 CBC remained stable this admission - continue with weekly monitoring CBC and iron levels with his outpatient drill operator automatic (3) Lung cancer: Left lower lobe well-differentiated mucinous adenocarcinoma, right upper lobe nodule 1.9 cm likely to be cancer but was not biopsied S/p SBRT of both lesions by at [facility], following with [facility] oncology At last hospitalization with transfer to [facility] patient had his pleural effusion tapped, this did not show evidence of malignant cells/malignant exudative effusion at that time - Records reviewed, follow up with his oncologist Dr. Bert Fisher (4) Primary sclerosing cholangitis: History of cirrhosis, sclerosing cholangitis. This has been followed at [facility] and also has rn coronary care unit in [place] AST ALT are normal, bilirubin near patient's baseline though lydia to low 3s, alk phos near patient's baseline - he has no RUQ pain, no fever, cholangitis seems unlikely, CMP remained stable Ursodiol continued - plans to establish with GI locally - has outpatient referral to [facility] already (5) Metabolic acidosis, normal anion gap (NAG): History of chronic normal anion gap acidosis VBG 7.29/34/44/16 consistent with incompletely compensated metabolic acidosis and underlying respiratory alkalosis -could be type 4 RTA, potentially could be related to ileostomy discussed with club former - recommends continuing Na-bicarb and 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 CT on admission ruled out bladder outlet obstruction. Continue monitoring UOP and Cr - Cr and UOP remains stable had MRSA and hannah from penile swab in ED - likely colonization, reexamined 08/15 and 08/16 no lesions inflammation or cellulitis. Urine culture was negative. (7) Type 2 diabetes mellitus: Last A1c 6.7% resume diet control at home (8) CAD (coronary artery disease): Trop normal range x 2 without chest pain and downtrending post fluids Aspirin continued, patient is at increased bleeding with thrombocytopenia EKG without acute ischemic changes. Patient does have first-degree AV block with SC similar to 1 month ago, although this is new compared to 04/2023. Beta- cecilia held, Lyme negative. - continue metoprolol (9) Atrial fibrillation: Possible atrial fibrillation with rapid ventricular rate night of 2/5-6 Review of tele monitor and EKGs - EKGs read by wall steamer - sinus tachy 1st degree AVB with PACs Tele with irregular rhythm possibly afib but also with PACs and some clear looking p-waves Reviewed recent TTE done in june 2023 at [facility] -normal EF, no significant valvular disease Not a candidate for chronic anticoagulation because of severe chronic thrombocyotpenia. Discussed this with his and associated stroke risk. Continue metoprolol -follow up with his outpatient wall steamer Plan Replaced mild hypomagnesemia with 1g IV 2/6 PT/OT ordered. His plans to take him home, resume home health PT Discussed discharge plan of care with his and ILDA at bedside today Total Time Total Time Spent Total Time Spent (In Minutes): I personally spent: 35 minutes today on clinical care activities including: reviewing chart notes and vital signs reviewing labs examining and counseling the patient counseling the patient's family writing orders documentation Discharge Plan Discharge Items Patient Disposition: Home - Home Health Services Reason For Visit: FATIGUE, WEAKNESS, ANEMIA ?UTI Discharge Diagnosis: anasarca related to cirrhosis, hyperkalemia, acute metabolic encephalopathy Condition on Discharge: Fair Activity: Resume your previous activity Non-emergency contact: Primary Care Provider, Design Analyst and Oncologist Call non-emergency contact if: you have any medication questions and your symptoms worsen Follow-up/Referrals: Dari Ayala MD [Physician] - Tom Bucio MD [Primary Care Provider] - Diet: Carb Consistent or DM2 Addtl Attending Provider Instructions: You were treated for fluid overload (swelling of legs and abdomen) high potassium and metabolic acidosis as well as increased confusion (delirium) -we did not find an active infection -the club former recommended continuing furosemide (lasix) and sodium bicarbonate -have your labs checked friday as planned. said he would have a blood chemistry panel drawn as well as your anemia labs -I did not discharge you on potassium supplement because of high potassium on admission and persistently in the early hospital stay, however, your potassium will be checked friday with your labs It would be safer for your kidneys (especailly in setting of cirrhosis) if you stopped taking diclofenac - either stop it if possible or talk this over with your prescribing physician and the club former You can take acetaminophen - up to 2000 mg per 24h is safe in setting of cirrhosis, but avoid higher doses Daniela Syed MD Pending Studies at Discharge: No Stand-Alone Forms: My [facility], Smoking Cessation Medications and DC Order Prescriptions: Continued Align 4 mg capsule 4 mg PO DAILY Patient Comments: as needed with antibiotics acetaminophen [Tylenol Extra Strength] 500 mg tablet 500 - 1,000 mg PO Q6H PRN (Reason: Pain) Prevagen 1 tab PO QAM albuterol sulfate 90 mcg/actuation HFA aerosol inhaler 2 puff inhalation Q6H PRN (Reason: Other) omeprazole 20 mg capsule,delayed release(DR/EC) 20 mg PO DAILY diclofenac sodium 75 mg tablet,delayed release (DR/EC) 75 mg PO QAM alfuzosin 10 mg tablet extended release 24 hr 10 mg PO QDD Rx Instructions: administer after the same meal each day aspirin 81 mg tablet,delayed release (DR/EC) 81 mg PO DAILY rosuvastatin 10 mg tablet 5 mg PO HS folic acid 1 mg tablet 1 mg PO DAILY alendronate [Fosamax] 70 mg Tablet 70 mg PO WK Patient Comments: TAKES ON FRI. Rx Instructions: WEDNESDAYS allopurinol 300 mg Tablet 300 mg PO QAM finasteride [Proscar] 5 mg Tablet 5 mg PO QAM magnesium oxide 400 mg magnesium Tablet 400 mg PO QAM ursodiol 300 mg capsule 900 mg PO BID cranberry 500 mg Capsule 500 mg PO QAM loratadine [Claritin] 10 mg Tablet 10 mg PO QAM misoprostol [Cytotec] 100 mcg Tablet 200 mcg PO QAM calcium carbonate-vitamin D3 [Calcium 500 + D] 500 mg(1,250mg) -200 unit Tablet 1 tab PO DAILY omega 6-fzi-bew-fish oil [Fish Oil] 1,000 mg (120 mg-180 mg) Capsule 1 cap PO DAILY metoprolol tartrate 25 mg Tablet 75 mg PO QPM Qty: 90 0RF Rx Instructions: TOTAL DOSE 75 MG--TAKES WITH 50 MG TAB. melatonin 3 mg tablet 5 mg PO HS PRN (Reason: SLEEP) Soothe Lubricant 0.6-0.6 % Dropperette 2 drp OPHTHALMIC (EYE) BID Dry Eye Oxford Benefits 667-250 mg-unit Capsule 3 cap PO DAILY metoprolol tartrate 50 mg tablet 50 mg PO .MIDDAY triamcinolone acetonide 0.1 % ointment 1 applic TOPICAL DAILY PRN (Reason: Other) ciprofloxacin HCl 500 mg Tablet 500 mg PO DIRECTED PRN (Reason: for PSC) Changed sodium bicarbonate 650 mg tablet 1,300 mg PO BID Qty: 120 0RF furosemide 20 mg tablet 40 mg PO DAILY Qty: 60 0RF Discontinued meclizine [Medi-Meclizine] 25 mg Tablet 25 mg PO TID PRN (Reason: Vertigo) Discharge Orders: Discharge Order (Routine); Ordered 08/17/23 Ordered By: Daniela Syed Admission Data Admit Date/Time: 08/11/23 12:59 Attending Provider: Daniela Syed Admit Provider: Bello Rodriguez Primary Care Provider: Tom Bucio Other Providers: Dari Ayala Other Interventions: Discharge Summary Assessment (RN) Last Done: 08/17/23 09:53 Coding Level of Care Code 39198 INP/OBS DISCH >30 MIN Diagnoses Generalized weakness R53.1 Pancytopenia D61.818 Lung cancer C34.90 Primary sclerosing cholangitis K83.0 Metabolic acidosis, normal anion gap (NAG) E87.20 Urethral stricture N35.919 Type 2 diabetes mellitus with hyperglycemia, without long-term current use of insulin E11.65 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
--- NOTE | 2023-08-18 11:33 | Pharmacy Report ---
ED Pharmacist Culture FollowUP - Culture Follow Up Note Date of Service: August 18, 2023 Notes:: FINAL BLCX report from 08/11 forwarded to ED today. Patient had been admitted to [facility] to hospitalist service. Hospitalist was aware of alpha-strep in 1 bottle of 1 set of BLCXs. Per documentation this isolate was thought to be a contaminant and did not require treatment.
== END 2023-08-17 10:59 | disposition home health service (06) | DRG 432 ==
LOC: ED 09:39 → 4W 12:59 → SUATTDRO 12:59 → 4W 17:08

== ENCOUNTER 2023-09-07 10:18 | Inpatient (IN) ==
--- NOTE | 2023-09-07 10:44 | Emergency Department Note ---
Impression & Plan Subdural hematoma, Thrombocytopenia, Subarachnoid bleed, UTI (urinary tract infection) ED Provider Note NAME: KENDRA HUERTA AGE: 83 SEX: M : 1940 ARRIVES VIA: Ambulance INFORMANT: Patient, ED PROVIDER(S): Viktor Lackey DO CHIEF COMPLAINT: Confusion HPI: Patient is an 83-year-old male with a past medical history of subarachnoid hemorrhage, A-fib, FORTUNATO, MDS who presents to the ER following being discharged from [facility] yesterday. [facility] He was found to be slightly more confused today. notes that he had IVIG at [facility]. He is very weak but this is really unchanged from typical baseline. No belly pain but admits to back pain since the biopsy. No dysuria, urgency, or frequency. ADDITIONAL HISTORY OBTAINED: Per HPI Chronic Medical/Social Conditions Affecting Care: Per HPI PAST MEDICAL HISTORY:See Below PAST SURGICAL HISTORY:See Below FAMILY HISTORY:See Below SOCIAL HISTORY:See Below HOME MEDICATIONS:See Below ALLERGIES:See Below VITALS:See Below PHYSICAL EXAMINATION: GENERAL: Sleeping but awakens to voice, ill-appearing, disheveled EYE EXAM: normal conjunctiva. PERRL and EOM's grossly intact. OROPHARYNX: no exudate, no erythema, lips, buccal mucosa, and tongue normal and mucous membranes are dry NECK: supple, no nuchal rigidity, no adenopathy, non-tender LUNGS: Clear to auscultation. Normal chest wall mechanics HEART: no murmurs, S1 normal and S2 normal ABDOMEN: abdomen soft, non-tender, normo-active bowel sounds, no masses, no rebound or guarding. BACK: Back is symmetrical on inspection and there is no deformity, no midline tenderness, no CVA tenderness. UPPER EXTREMITIES: upper extremities are grossly normal. LOWER EXTREMITIES: No pitting edema. 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 No drift. Finger to nose intact. Gross sensation intact. MEDICAL DECISION MAKING: Patient is an 83-year-old male who presents with his at bedside for confusion following being discharged from [facility] yesterday and placed in [facility]. IVs were established blood work was obtained. Labs show no significant leukocytosis. Mild anemia at 9 which is actually improved from previous. Platelets were low at 18 which in comparison to her she is actually improved. INR 1.2. BMP was unremarkable with exception of a T. bili at 3.1. LFTs was unremarkable. Lipase was normal. UA does appear to be consistent with a UTI. He was given IV Rocephin. CT of the head showed chronic subdural with some subtle acute findings of subarachnoid blood. I discussed the case with neurosurgery at [facility]. They agreed the patient could stay here. After further extensive discussion with the patient is a DNR/DNI and she would like hospice. She notes that she would prefer to take him home and get that set up if at all possible. I noted that we would have to keep him overnight tonight but we would likely be able to get him out and discharged tomorrow to home with hospice. She is very pleased with this. She does not want any aggressive measures. No surgery. No more blood products. She wants to keep him as comfortable as possible. She is currently in agreement with treatment for the UTI. Patient was given the Rocephin and admitted to Dr. Ding for further management treatment. Consults/Care Managements Discussions: Per [facility] Triage Nursing notes reviewed. Limited review of prior medical records performed Vital Signs: reviewed and remarkable for no significant abnormalities Differential diagnosis: Differential diagnoses includes but is not limited to gastritis, peptic ulcer disease, GERD, gallbladder disease, pancreatitis, small bowel obstruction, appendicitis, diverticulitis, hernia, urinary tract infection, torsion, perforation, trauma, infectious. ER treatment provided: See below Diagnostics interpreted by me include EKG and cardiac monitoring as listed below: -Cardiac Monitoring: An order was placed for continuous cardiac monitoring. The monitor shows a rate of 62 with sinus rhythm. -ECG: none -Laboratory studies:Interpreted by me as stated above in MDM and shown below. Imaging studies: Xrays: As interpreted by me:none CTs show: CT head per my preliminary interpretation showed subdural which is likely chronic CT of the head and abdomen pelvis as described by radiology shows acute on chronic blood within the head and chronic findings within the abdomen Procedures:none Critical Care: I have personally spent 31 minutes of critical care time in the direct management of this patient. This includes bedside care, interpretation of diagnostic studies, and testing, discussion with consultants, patient, and family members, and other required patient management activities. This 31 minutes is in excess of all separately billable procedures. Past Med/Surg History Medical History (Updated 09/07/23 @ 14:40 by Viktor Lackey DO) Atrial fibrillation Metabolic acidosis Mass of upper lobe of right lung Nocturnal hypoxia Atelectasis Bronchitis Basal cell carcinoma Lung cancer Left lower lobe pulmonary nodule Hypoxia Solitary pulmonary nodule Right tibial fracture Right tibial fracture Abscess of right shoulder (~09/2020) Macular degeneration Hx of vertigo Hx of basal cell carcinoma Benign prostatic hyperplasia with urinary obstruction Hx of ulcerative colitis S/p colectomy- ileostomy 1990 and 1994 History of IBS Hx of deep venous thrombosis LLE "A LONG TIME AGO" 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 Neurogenic bladder NO DOS [employer] 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 No evidence of thrombus on echo May 2022. TIA (transient ischemic attack) TIA vs complex migraine February 2019 Type 2 diabetes mellitus Left lower lobe pneumonia PVCs (premature ventricular contractions) Asymptomatic per patient History of kidney stones High cholesterol HTN (hypertension) CAD (coronary artery disease) STENT X 1 (2001) AT [facility] Sciatica Enlarged prostate Ileostomy in place History of myocardial infarction STENT X 1 (2001) S/P B/L TKA Stable; Has not had to use NTG since stent placement Surgical History History of cystoscopy History of lumbar laminectomy Hx of bilateral cataract extraction History of anesthesia reaction SLOW TO WAKE, BREATHING ISSUES, NAUSEA AND VOMITING History of colonoscopy History of cholecystectomy History of ERCP MULTIPLE History of appendectomy History of exploratory laparotomy X2 "COMMON DUCT RECONSTRUCTION" History of arthroplasty of right shoulder Right TSA= 05/24/16= Grade 1 view, MAC#[address] [facility] History of hand surgery RT/LEFT THUMBS History of total bilateral knee replacement Family History Father Myocardial infarction Family/Other Hypertension Nephrolithiasis Sister FH: ovarian cancer Other Family history of breast cancer in mother Social History Smoking Status: Never smoker Second Hand Exposure: Yes (childhood ); Do You Dip or Chew Tobacco: No; Hx Alcohol Use: Yes Alcohol type: wine Alcohol Intake Frequency: Monthly or Less Hx Substance Use: No Preferred Language: Syriac Communication Ability: Impaired Visual Impairment: Limited Hearing Ability: Use of Hearing Aid Licensed Physical Therapy Assistant Required: No Beliefs That Will Affect Care: None marital status: Current Living Situation: Family Current Living Situation Comment: Home current occupational status: retired current occupation: [employer] industry Feels Safe at Home: Yes Diet Comment: avoid heavy roughage during the past year weight has: remained stable Assistive Devices: Oxygen - at Night, Walker and Wheelchair Allergies Allergies Allergy/AdvReac Type Severity Reaction Status Date / Time Egg Derived Allergy Intermediate RASH WITH Verified 08/22/23 10:12 LARGE QUANTITIES Influenza Virus Vaccines Allergy Intermediate AVOIDS DUE Verified 08/22/23 10:12 TO EGG ALLERGY latex Allergy Intermediate Unknown Verified 08/22/23 10:12 metformin Allergy Intermediate GI ISSUES Verified 08/22/23 10:12 pollen extracts Allergy Intermediate ITCHY Verified 08/22/23 10:12 EYES, SNEEZING, CONGESTION benzonatate AdvReac Severe Weakness Verified 08/22/23 10:12 [From Raeann Germain] codeine AdvReac Intermediate N/V, Verified 08/22/23 10:12 HYPOTENSTION fentanyl AdvReac Intermediate EXTREME Verified 08/22/23 10:12 NAUSEA; BP DROPS lorazepam AdvReac Intermediate Confusion Verified 08/22/23 10:12 meperidine AdvReac Intermediate N/V, Verified 08/22/23 10:12 HYPOTENSTION morphine AdvReac Intermediate N/V, Verified 08/22/23 10:12 HYPOTENSTION Home Meds Home Medications Medication Instructions Recorded Confirmed alendronate 70 mg tablet (Fosamax) 70 mg PO WK 09/29/18 09/07/23 allopurinol 300 mg tablet 300 mg PO QAM 09/29/18 09/07/23 finasteride 5 mg tablet (Proscar) 5 mg PO QAM 09/29/18 09/07/23 magnesium oxide 400 mg PO QAM 09/29/18 09/07/23 folic acid 1 mg tablet 1 mg PO DAILY 02/02/19 09/07/23 cranberry 500 mg capsule 500 mg PO QAM 04/02/19 09/07/23 loratadine 10 mg tablet (Claritin) 10 mg PO QAM 06/24/19 09/07/23 calcium carbonate 500 mg-vitamin 1 tab PO DAILY 02/09/21 09/07/23 D3 5 mcg (200 unit) tablet (Calcium 500 + D) misoprostol 100 mcg tablet 200 mcg PO QAM 02/09/21 09/07/23 (Cytotec) omega 0-gry-fmv-fish oil 1,000 mg 1 cap PO DAILY 02/09/21 09/07/23 (120 mg-180 mg) capsule (Fish Oil) alfuzosin 10 mg tablet,extended 10 mg PO QDD 04/30/21 09/07/23 release 24 hr diclofenac sodium 75 mg 75 mg PO QAM 04/30/21 09/07/23 tablet,delayed release omeprazole 20 mg capsule,delayed 20 mg PO DAILY 04/30/21 09/07/23 release Bifidobacterium infantis 4 mg 4 mg PO DAILY 09/04/22 09/07/23 capsule (Align) Prevagen 1 tab PO QAM 09/04/22 09/07/23 acetaminophen 500 mg tablet 500 - 1,000 mg PO Q6H PRN Pain 09/04/22 09/07/23 (Tylenol Extra Strength) omega-3s 667 gf-nrr-tiz-fish 3 cap PO DAILY 10/07/22 09/07/23 oil-vitamin D3 250 unit capsule (Dry Eye [place] Benefits) propylene glycol-glycerin 0.6 2 drp ophthalmic (eye) BID 10/07/22 09/07/23 %-0.6 % eye drops in a dropperette (Soothe Lubricant) aspirin 81 mg tablet,delayed 81 mg PO DAILY 11/18/22 09/07/23 release melatonin 3 mg tablet 5 mg PO HS PRN SLEEP 11/18/22 09/07/23 metoprolol tartrate 50 mg tablet 50 mg PO .MIDDAY 11/18/22 09/07/23 ursodiol 300 mg capsule 900 mg PO BID 11/18/22 09/07/23 rosuvastatin 10 mg tablet 5 mg PO HS 02/20/23 09/07/23 albuterol sulfate 90 mcg/actuation 2 puff inhalation Q6H PRN Other 05/05/23 09/07/23 aerosol inhaler triamcinolone acetonide 0.1 % 1 applic topical DAILY PRN Other 06/14/23 09/07/23 topical ointment ciprofloxacin HCl 500 mg tablet 500 mg PO DIRECTED PRN for PSC 07/22/23 09/07/23 Previous Rx's Medication Instructions Recorded metoprolol tartrate 25 mg tablet 75 mg (3 x 25 mg) PO QPM #90 tabs 02/13/21 furosemide 20 mg tablet 40 mg (2 x 20 mg) PO DAILY #60 tabs 08/17/23 sodium bicarbonate 650 mg tablet 1,300 mg (2 x 650 mg) PO BID #120 08/17/23 tabs Results & Data (ED) Vital Signs Vital Signs - 24 hr 09/07/23 10:32 09/07/23 10:34 09/07/23 10:43 Temperature 36.3 C L Temperature Source Oral Pulse Rate 67 Pulse Rate [Apical] Respiratory Rate 14 Respiratory Effort / Characteristics Respiratory Depth Normal Blood Pressure 122/63 Blood Pressure [Right Arm] Blood Pressure Mean 82 Blood Pressure Mean [Right Arm] Blood Pressure Position [Right Arm] Pulse Oximetry 93 93 94 Oxygen Delivery Method Room Air Room Air Room Air Oxygen Flow Rate 0 Sepsis Recent Fever Within 48 Hours No Sepsis New/Unexplained Change in Mental Status N/A Sepsis Action Taken by Nursing No Action Required 09/07/23 12:15 09/07/23 13:45 Temperature Temperature Source Pulse Rate 68 Pulse Rate [Apical] 66 Respiratory Rate 17 Respiratory Effort / Characteristics Non-Labored Spontaneous Respiratory Depth Normal Blood Pressure Blood Pressure [Right Arm] 114/59 L Blood Pressure Mean Blood Pressure Mean [Right Arm] 77 Blood Pressure Position [Right Arm] Lying Pulse Oximetry 91 Oxygen Delivery Method Room Air Oxygen Flow Rate Sepsis Recent Fever Within 48 Hours Sepsis New/Unexplained Change in Mental Status Sepsis Action Taken by Nursing Laboratory Data 09/07/23 10:37 09/07/23 10:30 Lab Results 09/07/23 09/07/23 09/07/23 Range/Units 10:30 10:37 11:19 WBC 5.67 (4.8-10.8) K/ul RBC 2.42 L (4.70-6.10) M/uL Hgb 9.0 L (14.0-18.0) g/dl Hct 27.6 L (42.0-52.0) % MCV 114.0 H (80.0-100.0) fL MCH 37.2 H (25.0-34.0) pg MCHC 32.6 (32.0-36.0) g/dL RDW Std Deviation 101.3 H (36.4-46.3) fL RDW Coeff of Chani 24.4 H (11.5-14.5) % Plt Count 18 L* (130-400) K/uL Immature Gran % (Auto) 0.4 % Neut % (Auto) 84.0 % Lymph % (Auto) 9.7 % [place] % (Auto) 5.5 % Eos % (Auto) 0.2 % Baso % (Auto) 0.2 % Neut # (Auto) 4.77 (1.40-6.50) K/uL Lymph # (Auto) 0.55 L (1.20-3.40) K/uL [place] # (Auto) 0.31 (0.11-0.59) K/uL Eos # (Auto) 0.01 (0.00-0.50) K/uL Baso # (Auto) 0.01 (0.00-0.20) K/uL Immature Gran # (Auto) 0.02 (0.01-0.20) K/uL Polychromasia 1+ Anisocytosis Present Macrocytosis Present Echinocytes 1+ PT 13.2 H (9.0-12.0) Seconds INR 1.2 H (0.9-1.1) Sodium 140 (136-145) mmol/L Potassium 4.2 (3.5-5.1) mmol/L Chloride 112 H (98-107) mmol/L Carbon Dioxide 25 (21-32) mmol/L Anion Gap 3 (3-11) BUN 25 H (6-23) mg/dl Creatinine 0.77 (0.6-1.4) mg/dl Est Cr Clr Drug Dosing 74.7 ml/min Est GFR ( Amer) 95.9 ml/min Est GFR (Non-Af Amer) 82.7 ml/min BUN/Creatinine Ratio 32.5 H (10-20) Glucose 149 H (70-99(Fasting)) mg/dl Calcium 8.4 L (8.6-10.3) mg/dl Total Bilirubin 3.1 H (0.2-1.0) mg/dl AST 37 (13-39) U/L ALT 46 (7-52) U/L Alkaline Phosphatase 300 H (34-104) U/L Total Protein 6.0 (6.0-8.3) gm/dl Albumin 2.3 L (3.4-5.0) gm/dl Globulin 3.7 (2.5-4.0) gm/dl Albumin/Globulin Ratio 0.6 L (0.9-2) Lipase 21 (11-82) U/L Urine Color Dark Yellow Urine Appearance Cloudy A (Clear) Urine pH 5.0 (4.5-7.5) Ur Specific [place] 1.016 (1.000-1.030) Urine Protein Trace H (Negative) Urine Glucose (UA) Negative (Negative) Urine Ketones Negative (Negative) Urine Blood 2+ H (Negative) Urine Nitrite Negative (Negative) Urine Bilirubin Negative (Negative) Urine Urobilinogen Negative (Negative) Ur Leukocyte Esterase 3+ H (Negative) Urine WBC (Auto) >30 H (0-5) /hpf Urine RBC (Auto) 0-4 (0-4) /hpf U Hyaline Cast (Auto) 1-5 (0-5) /lpf U Epithel Cells (Auto) 5-10 H (0-5) /lpf Urine Bacteria (Auto) Negative (Negative) Urine Yeast Budding w/ Hyphae A (None Prsent) Administered Medications Discontinued Medications Ceftriaxone Sodium (Rocephin) 2,000 mg in 50 mls @ 100 mls/hr IV NOW STA Stop: 09/07/23 13:34 Last Admin: 09/07/23 13:37 Dose: 100 mls/hr Documented By: [facility] Ioversol (Optiray 320 500ml) 90 ml IV ONCE ONE Stop: 09/07/23 12:26 Last Admin: 09/07/23 12:25 Dose: 90 ml Documented By: [facility] Imaging Data Radiologist's Impression: Head CT 09/07/23 10:36 CT head/brain wo con CLINICAL HISTORY: 83 years-old Male with sent from [facility] recent SAH. Acute headache TECHNIQUE: Multiple axial CT images of the head were obtained without contrast. A dose lowering technique was utilized adhering to the principles of ALARA. COMPARISON: 08/24/2023 FINDINGS: Involutional changes with chronic microvascular ischemic disease. Cavum septum pellucidum and vergae. Subacute appearing right subdural hematoma with CSF attenuation measures up to 10 mm, new from 08/24/2023. There is no significant midline shift. Resolving tiny and now subcentimeter hemorrhagic focus adjacent to the falx cerebri on image 25 series 2. Similar appearing small focus of subarachnoid hemorrhage within the right frontal lobe on image 20 series 2 with resolved subarachnoid hemorrhage within the inferior aspect of the right middle cranial fossa. There is a 3 mm extra-axial hemorrhagic focus involving the right cerebral convexity on image 16 series 2 which appears new. New subtle acute areas of subarachnoid hemorrhage in the left temporal lobe on image 12 series 2. Chronic cerebellar infarcts. There is no midline shift, intra-axial mass or acute hydrocephalus. No acute or subacute territorial infarct identified. Small focus of acute subarachnoid hemorrhage within the right temporoparietal distribution image 19 series 2. The calvarium is intact. The paranasal sinuses, mastoid air cells, and middle ear cavities are clear. IMPRESSION: 1. Subacute appearing subdural hematoma layering along the right stable convexity measuring up to 10 mm, new from 08/24/2023. 2. Subtle areas of scattered subarachnoid hemorrhage as above, some of which has mildly improved from the prior and some areas are new from the prior exam. 3. No significant mass effect, midline shift or acute hydrocephalus. 4. Chronic cerebellar infarcts. ACT 112: Negative or not required by law. The above report was generated using voice recognition software. It may contain grammatical, syntax or spelling errors. Electronically signed by: Jax Gee M.D. 09/07/2023 12:57 PM Abdomen/Pelvis CT 09/07/23 10:[address] WITH IV CONTRAST CT DOSE: 2225.4 mGy.cm HISTORY: Acute generalized abdominal pain abd pain TECHNIQUE: Multiaxial CT images of the abdomen and pelvis were performed following the IV administration of 90 cc of Optiray, A dose lowering technique was utilized adhering to the principles of ALARA. COMPARISON STUDY: 08/11/2023 FINDINGS: Small bilateral pleural effusions with mild bibasilar consolidation redemonstrated. Left pleural effusion appears slightly loculated. Cardiomegaly with extensive coronary artery calcifications. Study is degraded by respiratory motion artifact and upper extremity positioning. Unchanged cardiophrenic lymphadenopathy. Cirrhosis with unchanged heterogeneity of the right hepatic lobe. Pneumobilia is redemonstrated. No hepatic mass identified. The portal vein appears patent as visualized. Small amount of ascites is similar to prior CT. Splenomegaly. Multifocal heterogeneously decreased enhancement throughout the spleen. The splenic artery demonstrates multifocal calcifications. Suboptimal evaluation of the distal splenic artery branches secondary to phase of contrast bolus timing. Questionable occlusion of the distal branches of the splenic artery on image 137 series 5. There is body wall and mesenteric edema. No renal, ureteral or bladder calculi are present. There is no hydronephrosis. Indeterminate 1.1 cm right renal lesion is unchanged. There is no evidence for a bowel obstruction status post proctocolectomy with left lower quadrant ileostomy. 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 Bladder wall is irregular and trabeculated, unchanged. Old lumbar spine compression fractures are again noted. No acute fractures are identified within the visualized skeletal structures. There has been no significant change in appearance of the abdomen or pelvis since prior CT. IMPRESSION: 1. Cirrhosis with splenomegaly and ascites compatible with portal venous hypertension. 2. Heterogeneously decreased enhancement involves greater than 50% of the spleen extending to the capsule compatible with numerous splenic infarcts. 3. Status post proctocolectomy with left lower quadrant ileostomy and parastomal hernia. No bowel obstruction. 4. Small pleural effusions with bibasilar consolidation redemonstrated. 5. Additional findings as above. ACT 112: Negative or not required by law. The above report was generated using voice recognition software. It may contain grammatical, syntax or spelling errors. Electronically signed by: Jax Gee M.D. 09/07/2023 1:10 PM Discharge Plan Visit Data Chief Complaint: Weakness Stated Complaint: AMS, LETHARGIC ED Provider: Viktor Lackey Discharge Problem: Subdural hematoma, Thrombocytopenia, Subarachnoid bleed, UTI (urinary tract infection) Forms Stand Alone Forms: [facility] [address] Prescriptions Prescriptions: No Action Align 4 mg capsule 4 mg PO DAILY Patient Comments: as needed with antibiotics acetaminophen [Tylenol Extra Strength] 500 mg tablet 500 - 1,000 mg PO Q6H PRN (Reason: Pain) Prevagen 1 tab PO QAM albuterol sulfate 90 mcg/actuation HFA aerosol inhaler 2 puff inhalation Q6H PRN (Reason: Other) omeprazole 20 mg capsule,delayed release(DR/EC) 20 mg PO DAILY diclofenac sodium 75 mg tablet,delayed release (DR/EC) 75 mg PO QAM alfuzosin 10 mg tablet extended release 24 hr 10 mg PO QDD Rx Instructions: administer after the same meal each day aspirin 81 mg tablet,delayed release (DR/EC) 81 mg PO DAILY rosuvastatin 10 mg tablet 5 mg PO HS folic acid 1 mg tablet 1 mg PO DAILY alendronate [Fosamax] 70 mg Tablet 70 mg PO WK Patient Comments: TAKES ON FRI. Rx Instructions: WEDNESDAYS allopurinol 300 mg Tablet 300 mg PO QAM finasteride [Proscar] 5 mg Tablet 5 mg PO QAM magnesium oxide 400 mg magnesium Tablet 400 mg PO QAM ursodiol 300 mg capsule 900 mg PO BID cranberry 500 mg Capsule 500 mg PO QAM loratadine [Claritin] 10 mg Tablet 10 mg PO QAM misoprostol [Cytotec] 100 mcg Tablet 200 mcg PO QAM calcium carbonate-vitamin D3 [Calcium 500 + D] 500 mg(1,250mg) -200 unit Tablet 1 tab PO DAILY omega 1-msr-hfu-fish oil [Fish Oil] 1,000 mg (120 mg-180 mg) Capsule 1 cap PO DAILY metoprolol tartrate 25 mg Tablet 75 mg PO QPM Qty: 90 0RF Rx Instructions: TOTAL DOSE 75 MG--TAKES WITH 50 MG TAB. melatonin 3 mg tablet 5 mg PO HS PRN (Reason: SLEEP) Soothe Lubricant 0.6-0.6 % Dropperette 2 drp OPHTHALMIC (EYE) BID Dry Eye [place] Benefits 667-250 mg-unit Capsule 3 cap PO DAILY metoprolol tartrate 50 mg tablet 50 mg PO .MIDDAY triamcinolone acetonide 0.1 % ointment 1 applic TOPICAL DAILY PRN (Reason: Other) ciprofloxacin HCl 500 mg Tablet 500 mg PO DIRECTED PRN (Reason: for PSC) sodium bicarbonate 650 mg tablet 1,300 mg PO BID Qty: 120 0RF furosemide 20 mg tablet 40 mg PO DAILY Qty: 60 0RF Referrals Referrals: Tom Bucio MD [Primary Care Provider] - Discharge Problem: UTI (urinary tract infection) Qualifiers: Urinary tract infection type: acute cystitis Hematuria presence: with hematuria Qualified Code(s): N30.01 - Acute cystitis with hematuria
[2023-09-07 10:58] LABS: Albumin Globulin Ratio 0.6 (0.9-2); Albumin Level 2.3 gm/dl (3.4-5.0); BUN Creatinine Ratio 32.5 (10-20); Bilirubin,Total 3.1 mg/dl (0.2-1.0); Calcium 8.4 mg/dl (8.6-10.3); Creatinine Clr Calc Pharmacy 74.7 ml/min; Est GFR (African American) 95.9 ml/min; Est GFR (Non-African American) 82.7 ml/min; Globulin 3.7 gm/dl (2.5-4.0); Potassium 4.2 mmol/L (3.5-5.1)
[2023-09-07 11:03] LABS: Hematocrit (blood only) 27.6 % (42.0-52.0); Mean Corpuscular Hemoglobin 37.2 pg (25.0-34.0); Mean Corpuscular Hgb Conc 32.6 g/dL (32.0-36.0); Platelet Count 18 K/uL (130-400); RDW Coefficient of Variation 24.4 % (11.5-14.5); RDW Standard Deviation 101.3 fL (36.4-46.3); Red Blood Count 2.42 M/uL (4.70-6.10); White Blood Count 5.67 K/ul (4.8-10.8)
[2023-09-07 11:19] LABS: INR 1.2 (0.9-1.1); Prothrombin Time 13.2 Seconds (9.0-12.0)
[2023-09-07 11:22] LABS: Anisocytosis Present; Basophils # (auto) 0.01 K/uL (0.00-0.20); Basophils % (auto) 0.2 %; Echinocytes 1+; Eosinophils # (auto) 0.01 K/uL (0.00-0.50); Eosinophils % (auto) 0.2 %; Immature Granulocytes # (auto) 0.02 K/uL (0.01-0.20); Immature Granulocytes % (auto) 0.4 %; Lymphocytes # (auto) 0.55 K/uL (1.20-3.40); Lymphocytes % (auto) 9.7 %; Macrocytosis Present; Monocytes # (auto) 0.31 K/uL (0.11-0.59); Monocytes % (auto) 5.5 %; Neutrophils # (auto) 4.77 K/uL (1.40-6.50); Polychromasia 1+
[2023-09-07 11:32] LABS: Appearance Urine Cloudy (Clear); Bacteria Urine Automated Negative (Negative); Bilirubin Urine Negative (Negative); Blood Urine 2+ (Negative); Color Urine Dark Yellow; Glucose Urine UA Negative (Negative); Ketones Urine Negative (Negative); Leukocyte Esterase Urine 3+ (Negative); Nitrite Urine Negative (Negative); Protein Urine Trace (Negative); Specific Gravity Urine 1.016 (1.000-1.030); Urobilinogen Urine Negative (Negative); WBC Urine Automated >30 /hpf (0-5)
[2023-09-07 11:50] LABS: RBC Urine Automated 0-4 /hpf (0-4)
[2023-09-07] MEDS: OPTIRAY 320 500ml IV ONE (12:25)
--- NOTE | 2023-09-07 12:59 | CT Scan Report ---
CT head/brain wo con CLINICAL HISTORY: 83 years-old Male with sent [facility]. Acute headache TECHNIQUE: Multiple axial CT images of the head were obtained without contrast. A dose lowering tech nique was utilized adhering to the principles of ALARA. COMPARISON: 08/24/2023 FINDINGS: Involutional changes with chronic microvascular ischemic disease. Cavum septum pellucidum and vergae. Subacute appearing right subdural hematoma with CSF attenuation measures up to 10 mm, new from 2023. There is no significant midline shift. Resolving tiny and now subcentimeter hemorrhagic focus a djacent to the falx cerebri on image 25 series 2. Similar appearing small focus of subarachnoid hemor rhage within the right frontal lobe on image 20 series 2 with resolved subarachnoid hemorrhage within the inferior aspect of the right middle cranial fossa. There is a 3 mm extra-axial hemorrhagic focus involving the right cerebral convexity on image 16 series 2 which appears new. New subtle acute area s of subarachnoid hemorrhage in the left temporal lobe on image 12 series 2. Chronic cerebellar infar cts. There is no midline shift, intra-axial mass or acute hydrocephalus. No acute or subacute territo rial infarct identified. Small focus of acute subarachnoid hemorrhage within the right temporoparieta l distribution image 19 series 2. The calvarium is intact. The paranasal sinuses, mastoid air cells, and middle ear cavities are clear . IMPRESSION: 1. Subacute appearing subdural hematoma layering along the right stable convexity measuring up to 10 mm, new from 08/24/2023. 2. Subtle areas of scattered subarachnoid hemorrhage as above, some of which has mildly improved from the prior and some areas are new from the prior exam. 3. No significant mass effect, midline shift or acute hydrocephalus. 4. Chronic cerebellar infarcts. ACT 112: Negative or not required by law. The above report was generated using voice recognition software. It may contain grammatical, syntax o r spelling errors. Electronically signed by: Jax Gee M.D. 09/07/2023 12:57 PM
--- NOTE | 2023-09-07 13:12 | CT Scan Report ---
ABDOMEN AND PELVIS CT WITH IV CONTRAST CT DOSE: 2225.4 mGy.cm HISTORY: Acute generalized abdominal pain abd pain TECHNIQUE: Multiaxial CT images of the abdomen and pelvis were performed following the IV administrat ion of 90 cc of Optiray, A dose lowering technique was utilized adhering to the principles of ALARA. COMPARISON STUDY: 08/11/2023 FINDINGS: Small bilateral pleural effusions with mild bibasilar consolidation redemonstrated. Left pl eural effusion appears slightly loculated. Cardiomegaly with extensive coronary artery calcifications . Study is degraded by respiratory motion artifact and upper extremity positioning. Unchanged cardiop hrenic lymphadenopathy. Cirrhosis with unchanged heterogeneity of the right hepatic lobe. Pneumobilia is redemonstrated. No h epatic mass identified. The portal vein appears patent as visualized. Small amount of ascites is francy lar to prior CT. Splenomegaly. Multifocal heterogeneously decreased enhancement throughout the spleen . The splenic artery demonstrates multifocal calcifications. Suboptimal evaluation of the distal sple allen artery branches secondary to phase of contrast bolus timing. Questionable occlusion of the distal branches of the splenic artery on image 137 series 5. There is body wall and mesenteric edema. No renal, ureteral or bladder calculi are present. There is no hydronephrosis. Indeterminate 1.1 cm right renal lesion is unchanged. There is no evidence for a b owel obstruction status post proctocolectomy with left lower quadrant ileostomy. 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 Bladder wall is irregular and trabeculated, unchanged. Old lumbar spine compression fra ctures are again noted. No acute fractures are identified within the visualized skeletal structures. There has been no significant change in appearance of the abdomen or pelvis since prior CT. IMPRESSION: 1. Cirrhosis with splenomegaly and ascites compatible with portal venous hypertension. 2. Heterogeneously decreased enhancement involves greater than 50% of the spleen extending to the cap henry compatible with numerous splenic infarcts. 3. Status post proctocolectomy with left lower quadrant ileostomy and parastomal hernia. No bowel obs truction. 4. Small pleural effusions with bibasilar consolidation redemonstrated. 5. Additional findings as above. ACT 112: Negative or not required by law. The above report was generated using voice recognition software. It may contain grammatical, syntax o r spelling errors. Electronically signed by: Jax Gee M.D. 09/07/2023 1:10 PM
[2023-09-07] MEDS ORDERED: SODIUM CHLORIDE 0.9% 250 ML IV PRN (13:25)
[2023-09-07] MEDS: cefTRIAXone SODIUM 2,000 MG/50 ML BAG IV STA (13:37)
--- NOTE | 2023-09-07 13:40 | History & Physical Report ---
Date of Service September 07, 2023 Assessment & Plan (1) Goals of care, counseling/discussion: Plan: Discharged on 09/05 from [facility] to [facility] poststroke Appeared altered/lethargic on 09/06 on ED arrival Patient's /POA (Betty) is present at the bedside Head CT revealed subacute appearing right-sided subdural hematoma measuring up to 10 mm; scattered subarachnoid hemorrhages [place] [facility] [place] and improvement in cognition No surgical intervention by [place] [facility] d/t thrombocytopenia A/P CT revealed cirrhosis with splenomegaly and ascites; numerous splenic infarcts Palliative care consult ordered Sales Service Assistant consulted Hematology/oncology consult (patient follows with ) Acetaminophen 500 mg p.o. q12h for pain control A.m. CBC, BMP; patient is amenable to having daily blood draws until UTI clears, then please discontinue In the event of a catastrophic deterioration, both the patient and patient's /POA would like him to be comfort measures only with initiation of inpatient hospice care. (2) UTI (urinary tract infection): Plan: UA positive on arrival Clinically, patient denies symptoms Patient's is okay with treating the UTI as this is a reversible/treatable condition Rocephin 2000 mg IV q24h (3) Subarachnoid hemorrhage: Plan: As above (4) Thrombocytopenia: Plan: Chronic; noted Platelet count low at 18 on arrival (5) Primary cancer of left upper lobe of lung: Plan: Chronic; noted (6) Myelodysplastic syndrome: Plan: Low-grade Noted on bone marrow biopsy done at [facility] on Saturday 09/02, per patient's Plan Disposition: Ad[facility] to [facility] DNR/DNI Regular diet with increased protein supplementation VTE PPx: Teds History of Present Illness Chief Complaint: Weakness, lethargy Primary Care Provider: Tom Bucio MD Jordy is a pleasant 83-year-old male with remote history of DVT/SVT, and PMH of [place] lung cancer, T2DM, HTN, primary sclerosing cholangitis, CHF, and chronic thrombocytopenia. He arrived via EMS from [facility] on 09/07/23; 1 day after being discharged for [facility] post stroke. Patient appeared lethargic and confused on arrival, and most of history is obtained from patient's /POA (Betty) at the bedside. She reports that the patient said he was lightheaded this morning, and complaining of back pain at the rehab center. He reportedly said he needed to go back to bed, even though it was the morning. This was an acute change from his cognitive baseline when he left [facility] on 09/05. Patient w as at [facility] for 2 weeks for a subarachnoid hemorrhage caught on CT; no surgical intervention in the setting of severe thrombocytopenia; SAH remained stable on imaging and mental status gradually improved throughout admission. Suspected diagnosis of low-grade myelodysplastic syndrome based on bone marrow biopsy at [facility] on Saturday 09/02. Patient's denies seeing any facial droop, worsening of slurred speech, or unilateral deficits on the morning of 09/06. At time of admission, there was a long discussion regarding goals of care and whether or not the patient would want escalation of care in the event of clinical deterioration. Patient's is amenable to discussions of palliative/hospice care given his continued deterioration of chronic medical conditions. Patient, while lethargic, is also amenable to this at the time of admission. Alert and oriented to name, , and month, but not location (as it is frequently been changing). Patient was not receiving supplemental oxygen at [facility]. He does note increased loss of appetite over the last few weeks. In the event of a catastrophic measures overnight, patient is mildly hypotensive at 114/59 at time of admission; SpO2 91% on RA. ED course: Rocephin 2000 mg IV NSS 250 mL IV ROS obtained by patient/patient's together: Patient endorses lethargy, confusion, abdominal cramping, and mild chest pain (with patient attributes to stress) Patient denies fever, chills, night sweats, chest palpitations, pleuritic CP, SOB, cough, urinary symptoms, burning with urination, blood in urine or stool, or suprapubic pain. Early discussions of palliative/hospice care. In the event of a catastrophic deterioration overnight on 09/06, both the patient and patient's /POA would like him to be comfort measures only with initiation of inpatient hospice care. Allergies Allergy/AdvReac Type Severity Reaction Status Date / Time Egg Derived Allergy Intermediate RASH WITH Verified 08/22/23 10:12 LARGE QUANTITIES Influenza Virus Vaccines Allergy Intermediate AVOIDS DUE Verified 08/22/23 10:12 TO EGG ALLERGY latex Allergy Intermediate Unknown Verified 08/22/23 10:12 metformin Allergy Intermediate GI ISSUES Verified 08/22/23 10:12 pollen extracts Allergy Intermediate ITCHY Verified 08/22/23 10:12 EYES, SNEEZING, CONGESTION benzonatate AdvReac Severe Weakness Verified 08/22/23 10:12 [From Raeann Germain] codeine AdvReac Intermediate N/V, Verified 08/22/23 10:12 HYPOTENSTION fentanyl AdvReac Intermediate EXTREME Verified 08/22/23 10:12 NAUSEA; BP DROPS lorazepam AdvReac Intermediate Confusion Verified 08/22/23 10:12 meperidine AdvReac Intermediate N/V, Verified 08/22/23 10:12 HYPOTENSTION morphine AdvReac Intermediate N/V, Verified 08/22/23 10:12 HYPOTENSTION Home Medications Medication Instructions Recorded Confirmed Type alendronate 70 mg tablet (Fosamax) 70 mg PO WK 09/29/18 09/07/23 History allopurinol 300 mg tablet 300 mg PO QAM 09/29/18 09/07/23 History finasteride 5 mg tablet (Proscar) 5 mg PO QAM 09/29/18 09/07/23 History magnesium oxide 400 mg PO QAM 09/29/18 09/07/23 History folic acid 1 mg tablet 1 mg PO DAILY 02/02/19 09/07/23 History cranberry 500 mg capsule 500 mg PO QAM 04/02/19 09/07/23 History loratadine 10 mg tablet (Claritin) 10 mg PO QAM 06/24/19 09/07/23 History calcium carbonate 500 mg-vitamin 1 tab PO DAILY 02/09/21 09/07/23 History D3 5 mcg (200 unit) tablet (Calcium 500 + D) misoprostol 100 mcg tablet 200 mcg PO QAM 02/09/21 09/07/23 History (Cytotec) omega 9-use-vbs-fish oil 1,000 mg 1 cap PO DAILY 02/09/21 09/07/23 History (120 mg-180 mg) capsule (Fish Oil) metoprolol tartrate 25 mg tablet 75 mg (3 x 25 mg) PO QPM #90 tabs 02/13/21 09/07/23 Rx alfuzosin 10 mg tablet,extended 10 mg PO QDD 04/30/21 09/07/23 History release 24 hr diclofenac sodium 75 mg 75 mg PO QAM 04/30/21 09/07/23 History tablet,delayed release omeprazole 20 mg capsule,delayed 20 mg PO DAILY 04/30/21 09/07/23 History release Bifidobacterium infantis 4 mg 4 mg PO DAILY 09/04/22 09/07/23 History capsule (Align) Prevagen 1 tab PO QAM 09/04/22 09/07/23 History acetaminophen 500 mg tablet 500 - 1,000 mg PO Q6H PRN Pain 09/04/22 09/07/23 History (Tylenol Extra Strength) omega-3s 667 dy-lqe-syf-fish 3 cap PO DAILY 10/07/22 09/07/23 History oil-vitamin D3 250 unit capsule (Dry Eye [place] Benefits) propylene glycol-glycerin 0.6 2 drp ophthalmic (eye) BID 10/07/22 09/07/23 History %-0.6 % eye drops in a dropperette (Soothe Lubricant) aspirin 81 mg tablet,delayed 81 mg PO DAILY 11/18/22 09/07/23 History release melatonin 3 mg tablet 5 mg PO HS PRN SLEEP 11/18/22 09/07/23 History metoprolol tartrate 50 mg tablet 50 mg PO .MIDDAY 11/18/22 09/07/23 History ursodiol 300 mg capsule 900 mg PO BID 11/18/22 09/07/23 History rosuvastatin 10 mg tablet 5 mg PO HS 02/20/23 09/07/23 History albuterol sulfate 90 mcg/actuation 2 puff inhalation Q6H PRN Other 05/05/23 09/07/23 History aerosol inhaler triamcinolone acetonide 0.1 % 1 applic topical DAILY PRN Other 06/14/23 09/07/23 History topical ointment ciprofloxacin HCl 500 mg tablet 500 mg PO DIRECTED PRN for PSC 07/22/23 09/07/23 History furosemide 20 mg tablet 40 mg (2 x 20 mg) PO DAILY #60 tabs 08/17/23 09/07/23 Rx sodium bicarbonate 650 mg tablet 1,300 mg (2 x 650 mg) PO BID #120 08/17/23 09/07/23 Rx tabs Past Med/Surg History Medical History (Updated 09/07/23 @ 15:58 by Alexander Yancey PA-C) Atrial fibrillation Metabolic acidosis Mass of upper lobe of right lung Nocturnal hypoxia Atelectasis Bronchitis Basal cell carcinoma Lung cancer Left lower lobe pulmonary nodule Hypoxia Solitary pulmonary nodule Right tibial fracture Right tibial fracture Abscess of right shoulder (~09/2020) Macular degeneration Hx of vertigo Hx of basal cell carcinoma Benign prostatic hyperplasia with urinary obstruction Hx of ulcerative colitis S/p colectomy- ileostomy 1990 and 1994 History of IBS Hx of deep venous thrombosis LLE "A LONG TIME AGO" 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 Neurogenic bladder NO DOS [facility] 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 No evidence of thrombus on echo May 2022. TIA (transient ischemic attack) TIA vs complex migraine February 2019 Type 2 diabetes mellitus Left lower lobe pneumonia PVCs (premature ventricular contractions) Asymptomatic per patient History of kidney stones High cholesterol HTN (hypertension) CAD (coronary artery disease) STENT X 1 (2001) AT [facility] Sciatica Enlarged prostate Ileostomy in place History of myocardial infarction STENT X 1 (2001) S/P B/L TKA Stable; Has not had to use NTG since stent placement Surgical History History of cystoscopy History of lumbar laminectomy Hx of bilateral cataract extraction History of anesthesia reaction SLOW TO WAKE, BREATHING ISSUES, NAUSEA AND VOMITING History of colonoscopy History of cholecystectomy History of ERCP MULTIPLE History of appendectomy History of exploratory laparotomy X2 "COMMON DUCT RECONSTRUCTION" History of arthroplasty of right shoulder Right TSA= 05/24/16= Grade 1 view, MAC#4 at [facility] History of hand surgery RT/LEFT THUMBS History of total bilateral knee replacement Family History Father Myocardial infarction Family/Other Hypertension Nephrolithiasis Sister FH: ovarian cancer Other Family history of breast cancer in mother Social History Smoking Status: Never smoker Second Hand Exposure: Yes (childhood ); Do You Dip or Chew Tobacco: No; Hx Alcohol Use: Yes Alcohol type: wine Alcohol Intake Frequency: Monthly or Less Hx Substance Use: No Preferred Language: Albanian Communication Ability: Impaired Visual Impairment: Limited Hearing Ability: Use of Hearing Aid Helicopter Mechanic Required: No Beliefs That Will Affect Care: None marital status: Current Living Situation: Family Current Living Situation Comment: Home 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 Feels Safe at Home: Yes Diet Comment: avoid heavy roughage during the past year weight has: remained stable Assistive Devices: Oxygen - at Night, Walker and Wheelchair Review of Systems Review of Systems: See HPI above Physical Exam Physical Exam: General: no acute distress; lethargic; pleasant affect; non-toxic appearing; frail; cooperative HEENT: normocephalic, atraumatic; no scleral icterus; PERRLA; dry mucus membrane; vision and hearing intact Neck: supple; no lymphadenopathy; trachea midline Skin: warm, dry without signs of tenting; no cyanosis; no rashes, bruising, lesions, or erythema noted CV: chest wall NTP; RRR; S1/S2 normal; no murmurs/rubs/gallops; pulses intact and symmetric at radial, DP, and PT Lungs: no acute respiratory distress; symmetrical chest wall expansion; clear breath sounds across all lung avalos w/o adventitious sounds; no wheezing ABD: Soft, NTP; BS present; no rebound/guarding; no ascites; no distention; neg ative CVA tenderness MSK: no tics or fasciculations; +3 pitting edema noted in the LEs b/l, nonerythematous Neuro: Alert and oriented to name//month/year, but not location; slow speech with mild slurring; no facial droop; sensation grossly intact in the LEs b/l Results & Data Results & Data Vital Signs (Past 12 Hours) Vital Signs Temp Pulse Resp BP Pulse Ox O2 Del Method O2 Flow Rate 09/07/23 12:15 68 09/07/23 10:43 94 Room Air 09/07/23 10:34 36.3 C L 67 14 122/63 93 Room Air 09/07/23 10:32 93 Room Air 0 Laboratory Results Abnormal lab results 09/07/23 09/07/23 09/07/23 Range/Units 10:30 10:37 11:19 RBC 2.42 L (4.70-6.10) M/uL Hgb 9.0 L (14.0-18.0) g/dl Hct 27.6 L (42.0-52.0) % MCV 114.0 H (80.0-100.0) fL MCH 37.2 H (25.0-34.0) pg RDW Std Deviation 101.3 H (36.4-46.3) fL RDW Coeff of Chani 24.4 H (11.5-14.5) % Plt Count 18 L* (130-400) K/uL Lymph # (Auto) 0.55 L (1.20-3.40) K/uL PT 13.2 H (9.0-12.0) Seconds INR 1.2 H (0.9-1.1) Chloride 112 H (98-107) mmol/L BUN 25 H (6-23) mg/dl BUN/Creatinine Ratio 32.5 H (10-20) Glucose 149 H (70-99(Fasting)) mg/dl Calcium 8.4 L (8.6-10.3) mg/dl Total Bilirubin 3.1 H (0.2-1.0) mg/dl Alkaline Phosphatase 300 H (34-104) U/L Albumin 2.3 L (3.4-5.0) gm/dl Albumin/Globulin Ratio 0.6 L (0.9-2) Urine Appearance Cloudy A (Clear) Urine Protein Trace H (Negative) Urine Blood 2+ H (Negative) Ur Leukocyte Esterase 3+ H (Negative) Urine WBC (Auto) >30 H (0-5) /hpf U Epithel Cells (Auto) 5-10 H (0-5) /lpf Urine Yeast Budding w/ Hyphae A (None Prsent) Diagnostic Findings Head CT 09/07/23 10:36 CT head/brain wo con CLINICAL HISTORY: 83 years-old Male with sent from [facility] recent SAH. Acute headache TECHNIQUE: Multiple axial CT images of the head were obtained without contrast. A dose lowering technique was utilized adhering to the principles of ALARA. COMPARISON: 08/24/2023 FINDINGS: Involutional changes with chronic microvascular ischemic disease. Cavum septum pellucidum and vergae. Subacute appearing right subdural hematoma with CSF attenuation measures up to 10 mm, new from 08/24/2023. There is no significant midline shift. Resolving tiny and now subcentimeter hemorrhagic focus adjacent to the falx cerebri on image 25 series 2. Similar appearing small focus of subarachnoid hemorrhage within the right frontal lobe on image 20 series 2 with resolved subarachnoid hemorrhage within the inferior aspect of the right middle cranial fossa. There is a 3 mm extra-axial hemorrhagic focus involving the right cerebral convexity on image 16 series 2 which appears new. New subtle acute areas of subarachnoid hemorrhage in the left temporal lobe on image 12 series 2. Chronic cerebellar infarcts. There is no midline shift, intra-axial mass or acute hydrocephalus. No acute or subacute territorial infarct identified. Small focus of acute subarachnoid hemorrhage within the right temporoparietal distribution image 19 series 2. The calvarium is intact. The paranasal sinuses, mastoid air cells, and middle ear cavities are clear. IMPRESSION: 1. Subacute appearing subdural hematoma layering along the right stable convexity measuring up to 10 mm, new from 08/24/2023. 2. Subtle areas of scattered subarachnoid hemorrhage as above, some of which has mildly improved from the prior and some areas are new from the prior exam. 3. No significant mass effect, midline shift or acute hydrocephalus. 4. Chronic cerebellar infarcts. ACT 112: Negative or not required by law. The above report was generated using voice recognition software. It may contain grammatical, syntax or spelling errors. Electronically signed by: Jax Gee M.D. 09/07/2023 12:57 PM Abdomen/Pelvis CT 09/07/23 10:[address] WITH IV CONTRAST CT DOSE: 2225.4 mGy.cm HISTORY: Acute generalized abdominal pain abd pain TECHNIQUE: Multiaxial CT images of the abdomen and pelvis were performed following the IV administration of 90 cc of Optiray, A dose lowering technique was utilized adhering to the principles of ALARA. COMPARISON STUDY: 08/11/2023 FINDINGS: Small bilateral pleural effusions with mild bibasilar consolidation redemonstrated. Left pleural effusion appears slightly loculated. Cardiomegaly with extensive coronary artery calcifications. Study is degraded by respiratory motion artifact and upper extremity positioning. Unchanged cardiophrenic lymphadenopathy. Cirrhosis with unchanged heterogeneity of the right hepatic lobe. Pneumobilia is redemonstrated. No hepatic mass identified. The portal vein appears patent as visualized. Small amount of ascites is similar to prior CT. Splenomegaly. Multifocal heterogeneously decreased enhancement throughout the spleen. The splenic artery demonstrates multifocal calcifications. Suboptimal evaluation of the distal splenic artery branches secondary to phase of contrast bolus timing. Questionable occlusion of the distal branches of the splenic artery on image 137 series 5. There is body wall and mesenteric edema. No renal, ureteral or bladder calculi are present. There is no hydronephrosis. Indeterminate 1.1 cm right renal lesion is unchanged. There is no evidence for a bowel obstruction status post proctocolectomy with left lower quadrant ileostomy. 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 Bladder wall is irregular and trabeculated, unchanged. Old lumbar spine compression fractures are again noted. No acute fractures are identified within the visualized skeletal structures. There has been no significant change in appearance of the abdomen or pelvis since prior CT. IMPRESSION: 1. Cirrhosis with splenomegaly and ascites compatible with portal venous hypertension. 2. Heterogeneously decreased enhancement involves greater than 50% of the spleen extending to the capsule compatible with numerous splenic infarcts. 3. Status post proctocolectomy with left lower quadrant ileostomy and parastomal hernia. No bowel obstruction. 4. Small pleural effusions with bibasilar consolidation redemonstrated. 5. Additional findings as above. ACT 112: Negative or not required by law. The above report was generated using voice recognition software. It may contain grammatical, syntax or spelling errors. Electronically signed by: Jax Gee M.D. 09/07/2023 1:10 PM Code Status & VTE Plan Code Status DNR/DNI VTE Prophylaxis Plan VTE Prophylaxis will be ordered: No Supervising Physician Co-Signing Physician Notes Patient seen and examined, chart reviewed, case discussed with Alexander Yancey PA-C and I agree with the assessment and plan as above except as otherwise noted Labs and images reviewed Patient seen with at bedside in conjunction with CLYDE. Patient had returned from [facility] and was at [facility] for 1 day and this morning was much more confused and weak than his normal baseline. Did continue to endorse pain at his biopsy site, but went from engaging with family and walking to being much more confused and weak. No urinary symptoms but does have potentially infected appearing UA. Based on patient's continued decline, recent diagnosed with MDS family had expressed an interest in palliative/hospice care and return home rather than return to [facility]. Reviewed patient's current condition at length, and had extended goals of care discussion over at ~30 minutes. Pt and his acknowledges that he has had continued decline, the MDS is not curable and patient is at high risk for continued decline. CT of the head was reviewed, notes several subacute areas of hemorrhage which are new to our study but similar compared to last imaging at [place]. Patient is report that even if these were to expand and worsen they do not want aggressive measures at this time. Patient's reported his goals of care at this time are quality of life, and are no longer interested in measures to extend his life at any c onsequence of reduced quality and do not want invasive treatments. They would like to return home with hospice tomorrow and have a consultation with case management palliative care regarding the services. They would like to have included in this conversation and would like to be DNR with continued daily blood draws and infection management at this time with no further escalation of care. Ifhe were to clinically worsen or decline family and pt agree that would move to [facility] as inpatient at that time. Ideally they would like to be admitted, received some antibiotics for his infection, and transition to home hospice within the next day or so. Patient is admitted to medical/surgical with treatment of UTI, and pending palliative/hospice evaluation enrollment. At bedside he is no chest pain or shortness of breath. He is confused but redirectable and answers some questions appropriately mostly concerned about gaps in his memory. No abdominal pain, lungs are diminished but clear. Agree with assessment and management above PG Care Time/CCT Total # of Minutes Spent Total Time Spent with Patient: Total time spent is greater than 50% in coordination of care (as documented) at patient's floor/unit and/or counseling patient: C[place] [address] INT INP/OBS CARE 3/75MIN Patient Type Established History Comprehensive Exam Comprehensive Medical Decision Making High Complexity Diagnoses Goals of care, counseling/discussion Z71.89 UTI (urinary tract infection) N39.0 Subarachnoid hemorrhage I60.9 Thrombocytopenia D69.6 Primary cancer of left upper lobe of lung C34.12 Myelodysplastic syndrome D46.9
[2023-09-07] MEDS: ACETAMINOPHEN 325 MG TAB PO STA (15:19)
[2023-09-07] MEDS ORDERED: ONDANSETRON INJ 2 MG/ML 2 ML VIAL IV PRN (16:56)
[2023-09-07] MEDS ORDERED: ALBUTEROL HFA 8 GM INHALER INH PRN (16:56)
[2023-09-07] MEDS ORDERED: MELATONIN 3 MG TAB PO PRN (16:56)
[2023-09-07 17:40] LABS: Magnesium 1.7 mg/dl (1.7-2.4)
[2023-09-07] MEDS: DAPTOmycin 300 MG in SYRINGE 0 ML IV SCH (18:34)
[2023-09-07] MEDS: SODIUM BICARBONATE 650 MG TAB PO SCH (20:31)
[2023-09-07] MEDS: ursodioL 300 MG CAP PO SCH (20:31)
[2023-09-07] MEDS: METOPROLOL TARTRATE 25 MG TAB PO SCH (20:31)
[2023-09-07] MEDS: ACETAMINOPHEN 325 MG TAB PO SCH (20:31)
[2023-09-07] MEDS ORDERED: ROSUVASTATIN CALCIUM 5 MG TAB PO SCH (21:00)
--- NOTE | 2023-09-08 07:45 | Hospitalist Progress Note ---
Date of Service September 08, 2023 Assessment & Plan (1) Goals of care, counseling/discussion: Plan: Discharged on 09/[address] [facility] to [facility] poststroke Appeared altered/lethargic [facility] transferred to emergency department on 09/07/[address] revealed subacute appearing right-sided subdural hematoma measuring up to 10 mm; scattered subarachnoid hemorrhages Recent discharge [place] [facility] [place] with monitoring and improvement in cognition Discussion of CT scan from 09 06 with [place] [facility], no surgical intervention recommended d/t thrombocytopenia A/P CT revealed cirrhosis with splenomegaly and ascites; numerous splenic infarcts Patient's /POA (Betty) is present at the bedside, endorses wishes not to pursue aggressive care Palliative care consult ordered Brass Plater consulted Hematology/oncology consult (patient follows with ) Acetaminophen 500 mg p.o. q12h for pain control A.m. CBC, BMP; patient is amenable to having daily blood draws until UTI clears, then please discontinue In the event of a catastrophic deterioration, both the patient and patient's /POA would like him to be comfort measures only with initiation of inpatient hospice care. 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 mucinous adenocarcinoma (4) Myelodysplastic syndrome: Plan: Low-grade Noted on bone marrow biopsy done at [place] on Saturday 09/02, per patient's Plan DNR/DNI VTE PPx: Teds due to thrombocytopenia Admission and Anticipated Discharge Date Admission Date: September 07, 2023 Subjective pt is pleasant and in not distress. Physical Exam Physical Exam: awake and confused family at bedside Results & Data Results & Data Vital Signs (Past 12 Hours) Vital Signs Temp Pulse Resp BP Pulse Ox O2 Del Method 09/08/23 07:06 97.5 F L 63 18 153/77 H 97 Room Air 09/07/23 19:57 97.2 F L 73 16 119/71 94 Room Air Laboratory Results review cbc review chemistry PG Care Time/CCT Total # of Minutes Spent Total Time Spent with Patient: Total time spent is greater than 50% in coordination of care (as documented) at patient's floor/unit and/or counseling patient: Coding Level of Care Code 63402 SUB INP/OBS CARE 2MIN Diagnoses Goals of care, counseling/discussion Z71.89 UTI (urinary tract infection) N39.0 Primary cancer of left upper lobe of lung C34.12 Myelodysplastic syndrome D46.9
--- NOTE | 2023-09-08 08:12 | Electrocardiogram Report ---
Test Reason : Blood Pressure : / mmHG Vent. Rate : 071 BPM Atrial Rate : 071 BPM P-R Int : 164 ms QRS Dur : 088 ms QT Int : 438 ms P-R-T Axes : -12 -24 008 degrees QTc Int : 475 ms Sinus rhythm with Premature atrial complexes Low voltage QRS Old Anterior infarct (cited on or before 04-AUG-2023) Abnormal ECG When compared with ECG of 24-AUG-2023 03:03, Premature atrial complexes are now Present OK interval has decreased Confirmed by Malachi Gibson ([id number]) on 09/08/2023 8:12:34 AM Referred By: REFERRED SELF Confirmed By:Malachi Gibson
[2023-09-08] MEDS: LORATADINE 10 MG TAB PO SCH (08:17)
[2023-09-08] MEDS: FINASTERIDE 5 MG TAB PO SCH (08:17)
[2023-09-08] MEDS: miSOPROStoL 200 MCG TAB PO SCH (08:17)
[2023-09-08] MEDS: allopurinoL 300 MG TAB PO SCH (08:17)
[2023-09-08] MEDS: PANTOprazole 40 MG TAB PO SCH (08:17)
[2023-09-08] MEDS: FUROSEMIDE 40 MG TAB PO SCH (08:17)
[2023-09-08] MEDS: MAGNESIUM OXIDE 400 MG TAB PO SCH (08:17)
[2023-09-08 08:19] LABS: Hematocrit (blood only) 27.7 % (42.0-52.0); Mean Corpuscular Hemoglobin 37.2 pg (25.0-34.0); Mean Corpuscular Hgb Conc 32.5 g/dL (32.0-36.0); Mean Corpuscular Volume 114.5 fL (80.0-100.0); Nucleated RBC # (auto) 0.04 K/uL (0.00-0.12); Nucleated RBC % (auto) 0.7 %; Platelet Count 22 K/uL (130-400); RDW Coefficient of Variation 23.9 % (11.5-14.5); RDW Standard Deviation 99.8 fL (36.4-46.3); Red Blood Count 2.42 M/uL (4.70-6.10); White Blood Count 5.55 K/ul (4.8-10.8)
[2023-09-08 08:31] LABS: BUN Creatinine Ratio 35.8 (10-20); Calcium 8.2 mg/dl (8.6-10.3); Creatinine Clr Calc Pharmacy 66.7 ml/min; Est GFR (African American) 93.9 ml/min; Magnesium 1.8 mg/dl (1.7-2.4); Potassium 4.4 mmol/L (3.5-5.1)
[2023-09-08 08:37] LABS: Anisocytosis Present; Basophils # (auto) 0.01 K/uL (0.00-0.20); Basophils % (auto) 0.2 %; Eosinophils # (auto) 0.03 K/uL (0.00-0.50); Eosinophils % (auto) 0.5 %; Immature Granulocytes # (auto) 0.02 K/uL (0.01-0.20); Immature Granulocytes % (auto) 0.4 %; Lymphocytes # (auto) 0.39 K/uL (1.20-3.40); Macrocytosis Present; Monocytes # (auto) 0.29 K/uL (0.11-0.59); Monocytes % (auto) 5.2 %; Neutrophils # (auto) 4.81 K/uL (1.40-6.50); Neutrophils % (auto) 86.7 %; Ovalocytes 1+; Polychromasia 2+; Tear Drop Cells 1+
[2023-09-08] MEDS: FOLIC ACID 1 MG TAB PO SCH (08:50)
--- NOTE | 2023-09-08 10:48 | Palliative Care Consultation ---
Date of Consultation September 08, 2023 Assessment & Plan (1) Generalized weakness: (2) Severe muscle deconditioning: (3) Constipation: (4) Altered mental status: (5) Palliative care by specialist: Met with pt/family. Provided overview of Palliative Medicine, a subspecialty that provides specialized medical care for people living with a serious illness by offering a focus on quality of life. Palliative Medicine is often conflated with hospice: I advised patient/family that Palliative and hospice can be part ners but we are not the same. It is important to understand the difference so that we may be informed, and not afraid. Palliative Medicine works to improve QOL through reduction of symptom burden/more control over their illness, for both the patient and family. Palliative medicine clinicians are board certified, specially-trained and another member of the patient's medical care team. We often provide an extra layer of support because our care is based on the needs of the patient, not the prognosis; as such, it's appropriate at any age/advancing stage of a serious illness and can be provided along with curative treatment. Palliative Medicine clinicians are also trained in advanced communication methodologies, to facilitate complex discussions about advanced illness planning, which are needed to help assure that the treatment choices match the patient's goals, aka delivering Goal Concordant care. Finally, we discussed that hospice is a visiting nurse service that focuses on care deliv ered at the very end of life for patients with terminal illness, with life expectancy less than 6 month. Plan * long d/w pt and family. is very aware he is likely nearing his dying time. She has been his primary caregiver for many years and wants this to continue to be the case. She is open to home hospice but will not give up her role as primary caregiver, adding she does not want discussion of SNF placement. * Nick is a 100% service connected . We discussed options for home-based care that would encompass treatment directed care, comfort/quality of life directed care, or hybridized approach that may connect both of these goals which can be done through the VA's concurrent care - the VA would allow patients with incurable disease to receive disease-directed therapy (e.g., immunotherapy, chemotherapy, radiation, IV furosemide), while paying for hospice at the same time. The [place] made a conscious decision in 2008 to avoid having veterans make the terrible choice, between continuing disease- directed therapy and allowing strong interdisciplinary support from hospice at home. program. Additional info re VA EOL programs can be obtained here: - https://www.va.gov/initiatives/roe-kl-sfdm-benefits/#:~:text=End%2Dof%2Dlife%20p kinga%20with,members%20when%20a%20Veteran%20passes - https://www. cap.org/blog/fqxevtjs-dmizrsm-ynyfo-kicjkr-famews-prj-cbzhcxmrcp-gyql-afbyrts/ is leaning towards hospice. She will contact their [facility] office and ask their nurse if additional in home support can be provided in addition to home hospice. She is unsure pt would be to tolerate MDS therapy but we spoke about how hospice can offer gentle in home PT and if over time he gets better/stronger/more stable then he will be dc from hospice and can return to oncology clinic for more discussion. See separate ACP note History of Present Illness Reason for Consultation: Comfort Care, would like to discuss hospice Attending Physician: Anant Olmedo MD History of Present Illness Mr Tesfaye is an 83yo male admitted with complications and worsening decline from Subdural hematoma, Thrombocytopenia, Subarachnoid bleed, UTI (urinary tract infection) PMH: UC, chronic thrombocytopenia, liver cirrhosis, CHF, COPD subarachnoid hemorrhage, A-fib, FORTUNATO, MDS He was sent to ED from [facility], where [facility] dc him the day before this ED visit for stroke rehab. [facility]. He was found to be slightly more confused today. There is a report of having had IVIG at [place]. He is very weak but this is really unchanged from typical baseline. [facility] ED workup revealed Head CT w/subacute appearing right-sided subdural hematoma measuring up to 10 mm; scattered subarachnoid hemorrhages and A/P CT revealed cirrhosis with splenomegaly and ascites; numerous splenic infarcts. He is s/p bone marrow bx at [place] He is on Rocephin now for likely UTI Neuro consult 08/25 at [place] reports he was getting more confusion and then behav changes over few months. While at home on 08/17 he had an unwitnessed fall and CT revealed SAH with hypotension and hypothermia. He was transferred for further mgt of intracranial bleed. Due to his overall poor condition, intervention was deferred and he was in their MICU for medical mgt. Nick is seen at bedside together with his and daughter. He remains slightly confused at times. Majority of the history is obtained from his . She reiterates the family's commitment to desiring bringing him home and continuing to provide care for him. Allergies Allergy/AdvReac Type Severity Reaction Status Date / Time Egg Derived Allergy Intermediate RASH WITH Verified 08/22/23 10:12 LARGE QUANTITIES Influenza Virus Vaccines Allergy Intermediate AVOIDS DUE Verified 08/22/23 10:12 TO EGG ALLERGY latex Allergy Intermediate Unknown Verified 08/22/23 10:12 metformin Allergy Intermediate GI ISSUES Verified 08/22/23 10:12 pollen extracts Allergy Intermediate ITCHY Verified 08/22/23 10:12 EYES, SNEEZING, CONGESTION benzonatate AdvReac Severe Weakness Verified 08/22/23 10:12 [From Raeann Germain] codeine AdvReac Intermediate N/V, Verified 08/22/23 10:12 HYPOTENSTION fentanyl AdvReac Intermediate EXTREME Verified 08/22/23 10:12 NAUSEA; BP DROPS lorazepam AdvReac Intermediate Confusion Verified 08/22/23 10:12 meperidine AdvReac Intermediate N/V, Verified 08/22/23 10:12 HYPOTENSTION morphine AdvReac Intermediate N/V, Verified 08/22/23 10:12 HYPOTENSTION Home Medications Medication Instructions Recorded Confirmed Type alendronate 70 mg tablet (Fosamax) 70 mg PO WK 09/29/18 09/07/23 History allopurinol 300 mg tablet 300 mg PO QAM 09/29/18 09/07/23 History finasteride 5 mg tablet (Proscar) 5 mg PO QAM 09/29/18 09/07/23 History magnesium oxide 400 mg PO QAM 09/29/18 09/07/23 History folic acid 1 mg tablet 1 mg PO DAILY 02/02/19 09/07/23 History cranberry 500 mg capsule 500 mg PO QAM 04/02/19 09/07/23 History loratadine 10 mg tablet (Claritin) 10 mg PO QAM 06/24/19 09/07/23 History calcium carbonate 500 mg-vitamin 1 tab PO DAILY 02/09/21 09/07/23 History D3 5 mcg (200 unit) tablet (Calcium 500 + D) misoprostol 100 mcg tablet 200 mcg PO QAM 02/09/21 09/07/23 History (Cytotec) omega 0-qxf-ebh-fish oil 1,000 mg 1 cap PO DAILY 02/09/21 09/07/23 History (120 mg-180 mg) capsule (Fish Oil) metoprolol tartrate 25 mg tablet 75 mg (3 x 25 mg) PO QPM #90 tabs 02/13/21 09/07/23 Rx alfuzosin 10 mg tablet,extended 10 mg PO QDD 04/30/21 09/07/23 History release 24 hr diclofenac sodium 75 mg 75 mg PO QAM 04/30/21 09/07/23 History tablet,delayed release omeprazole 20 mg capsule,delayed 20 mg PO DAILY 04/30/21 09/07/23 History release Bifidobacterium infantis 4 mg 4 mg PO DAILY 09/04/22 09/07/23 History capsule (Align) Prevagen 1 tab PO QAM 09/04/22 09/07/23 History acetaminophen 500 mg tablet 500 - 1,000 mg PO Q6H PRN Pain 09/04/22 09/07/23 History (Tylenol Extra Strength) omega-3s 667 fl-hxx-pwd-fish 3 cap PO DAILY 10/07/22 09/07/23 History oil-vitamin D3 250 unit capsule (Dry Eye [place] Benefits) propylene glycol-glycerin 0.6 2 drp ophthalmic (eye) BID 10/07/22 09/07/23 History %-0.6 % eye drops in a dropperette (Soothe Lubricant) aspirin 81 mg tablet,delayed 81 mg PO DAILY 11/18/22 09/07/23 History release melatonin 3 mg tablet 5 mg PO HS PRN SLEEP 11/18/22 09/07/23 History metoprolol tartrate 50 mg tablet 50 mg PO .MIDDAY 11/18/22 09/07/23 History ursodiol 300 mg capsule 900 mg PO BID 11/18/22 09/07/23 History rosuvastatin 10 mg tablet 5 mg PO HS 02/20/23 09/07/23 History albuterol sulfate 90 mcg/actuation 2 puff inhalation Q6H PRN Other 05/05/23 09/07/23 History aerosol inhaler triamcinolone acetonide 0.1 % 1 applic topical DAILY PRN Other 06/14/23 09/07/23 History topical ointment ciprofloxacin HCl 500 mg tablet 500 mg PO DIRECTED PRN for PSC 07/22/23 09/07/23 History furosemide 20 mg tablet 40 mg (2 x 20 mg) PO DAILY #60 tabs 08/17/23 09/07/23 Rx sodium bicarbonate 650 mg tablet 1,300 mg (2 x 650 mg) PO BID #120 08/17/23 09/07/23 Rx tabs Patient History Medical History (Updated 09/08/23 @ 20:02 by Ariadna Arora DNP) Palliative care by specialist Altered mental status Constipation Severe muscle deconditioning Atrial fibrillation Metabolic acidosis Mass of upper lobe of right lung Nocturnal hypoxia Atelectasis Bronchitis Basal cell carcinoma Lung cancer Left lower lobe pulmonary nodule Hypoxia Solitary pulmonary nodule Right tibial fracture Right tibial fracture Abscess of right shoulder (~09/2020) Macular degeneration Hx of vertigo Hx of basal cell carcinoma Benign prostatic hyperplasia with urinary obstruction Hx of ulcerative colitis S/p colectomy- ileostomy 1990 and 1994 History of IBS Hx of deep venous thrombosis LLE "A LONG TIME AGO" 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 Neurogenic bladder NO DOS SANTOS CATHETER 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 No evidence of thrombus on echo May 2022. TIA (transient ischemic attack) TIA vs complex migraine February 2019 Type 2 diabetes mellitus Left lower lobe pneumonia PVCs (premature ventricular contractions) Asymptomatic per patient History of kidney stones High cholesterol HTN (hypertension) CAD (coronary artery disease) STENT X 1 (2001) AT [facility] [place] Enlarged prostate Ileostomy in place History of myocardial infarction STENT X 1 (2001) S/P B/L TKA Stable; Has not had to use NTG since stent placement Surgical History History of cystoscopy History of lumbar laminectomy Hx of bilateral cataract extraction History of anesthesia reaction SLOW TO WAKE, BREATHING ISSUES, NAUSEA AND VOMITING History of colonoscopy History of cholecystectomy History of ERCP MULTIPLE History of appendectomy History of exploratory laparotomy X2 "COMMON DUCT RECONSTRUCTION" History of arthroplasty of right shoulder Right TSA= 05/24/16= Grade 1 view, MAC#4 at [facility] History of hand surgery RT/LEFT THUMBS History of total bilateral knee replacement Family History Father Myocardial infarction Family/Other Hypertension Nephrolithiasis Sister FH: ovarian cancer Other Family history of breast cancer in mother Social History Smoking Status: Never smoker Second Hand Exposure: No; Do You Dip or Chew Tobacco: No; Hx Alcohol Use: No Hx Substance Use: No Preferred Language: [place] Communication Ability: Impaired Visual Impairment: Limited Hearing Ability: Use of Hearing Aid Basket Bottom Machine Operator Required: No Beliefs That Will Affect Care: Gnosticist Gnosticist Beliefs: Roman Catholic marital status: Current Living Situation: Spouse Current Living Situation Comment: typically lives with but was recently [facility] 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 Frail. Bitemporal wasting. Pupils are equal, round and reactive to light. Neck is supple. There is no stridor. Respiratory effort is normal. There is a mild intermittent and slightly bronchitic cough. Anterior breath sounds are diminished. Abdomen is soft, nontender, bowel sounds are present. He has generalized edema to both lower extremities. Edema is pitting to +3 up to the level of the knees. He also has pitting edema to the bilateral upper extremities from hands to elbows. There is violaceous discoloration with round scaly lesions on bilateral forearms on the underside. Nailbeds are pale and white. He is confused at times and unable to follow a lengthy or detailed/complex discussion. He is otherwise awake alert to self and cooperative with exam. Skin is pale and cool to touch. There is diffuse scattered ecchymoses on both upper and lower extremities. Results & Data Vital Signs (Past 12 Hours) Vital Signs Temp Pulse Resp BP Pulse Ox O2 Del Method 09/08/23 07:06 36.4 C L 63 18 153/77 H 97 Room Air Laboratory Results Data reviewed Diagnostic Findings Data reviewed PG Care Time/CCT Total # of Minutes Spent Total Time Spent with Patient: Total time spent is greater than 50% in coordination of care (as documented) at patient's floor/unit and/or counseling patient: I spent 80 minutes overall addressing this case: 25 min in medical data review/discussion with referring provider(s) and/or preparation for the visit incl OSH data review 25 min in direct interaction with the patient/exam see separate note min in Advance Care Planning/Goals of Care discussions as detailed above in note (must be >16min) 15 min in subsequent review and synthesis of assessment and plan 15 min communicating with other providers regarding the patient's case: [place] [address] IN/OBS CONSULT LVL 5,80M Patient Type New History Comprehensive Exam Comprehensive Medical Decision Making High Complexity Diagnoses Generalized weakness R53.1 Severe muscle deconditioning R29.898 Constipation K59.00 Altered mental status R41.82 Palliative care by specialist Z51.5
[2023-09-08] MEDS: cefTRIAXone SODIUM 2,000 MG in DEXTROSE 5 % MINI-B 50 ML IV SCH (13:48)
[2023-09-08] MEDS: METOPROLOL TARTRATE 50 MG TAB PO SCH (13:48)
[2023-09-08] MEDS: TAMSULOSIN HCL 0.4 MG CAP PO SCH (17:31)
--- NOTE | 2023-09-08 20:16 | Palliative Family Discussion ---
Date of Service September 08, 2023 Patient Directed Conference Time of Meetin-[id number] THIS WAS A 45MIN FACE TO FACE ACP DISCUSSION FOR GOALS OF CARE AND SERIOUS ILLNESS PLANNING CODE STATUS, HOSPICE, MORTALITY AND PROGNOSIS DISCUSSED Participants: Ariadna Arora DNP Patient participation:yes/intermittent - has trouble following detailed/lengthy discussion, poor recall Patient Support System: and dtr Other Healthcare Provider Participation: None Meeting Location: bedside Advanced Directive available: NO pt and family reaffirm DNR/DNI The patient's surrogate medical decision maker participated: A family meeting was held for KENDRA HUERTA. This meeting was necessary for determining the appropriate course of treatment. Topics of Discussion Topics of Discussion: 1. Medical issues to date reviewed/outlined in detail in my consult note 2. Persisting weakness, declining PS, weakness, edema, low appetite, confusion 3. is devoted caregiver. Only wants to discuss options for going home Other Content of Meetin. Opportunity given for participants to speak and ask questions. 2. Participants were assured of attention to patient comfort. Reassurance provided. 3. We discussed the goals of hospice as a patient service and the goals of care; we discussed EOL trajectories and transitions rakesh the emotional impact of realizing mortality as a concrete reality from prior abstract considerations. Pt was reassured that no matter where they are along this trajectory, they are not alone - their medical team will remain by their side through their journey. Discussed the pros/cons of accepting help when especially weakened and distressed by pain-which would also help provide relief/decrease caregiver burden/strain. I provided education about the hospice benefit: an interdiscipl inary program offered by nurses, nurses aides, social workers, chaplains and a medical technologist clinical for patients with a terminal condition and a life expectancy of less than 6 months. This is covered by Medicare at 100%/no out of pocket expense to patient and all meds/supplies needed by patient for the reason they are on hospice are paid for/covered by hospice. The goal is assure quality of life of the patient in their home setting (home, long-term, inpatient hospice setting) by providing symptoms management, psychosocial and spiritual support. However, they cannot offer 24 hours care and if the family is unable to provide that care, they will have to consider personal care with out of pocket cost vs. long-term placement. We discussed the goals of hospice as a patient service and the goals of care; we discussed EOL trajectories and transitions rakesh the emotional impact of realizing mortality as a concrete reality from prior abstract considerations. Pt was reassured that no matter where they are along this trajectory, they are not alone - their medical team will remain by their side through their journey. Discussed the pros/cons of accepting help when espec ially weakened and distressed by pain-which would also help provide relief/decrease caregiver burden/strain. VA CONCURRENT CARE also discussed - this would be reasonable if they want tx for MDS + hospice but if no tx for MDS desired, then no concurrent care would be needed. 4. Support was provided for informed, good-jhonatan decisions. 5. Emotions expressed by family were acknowledged and addressed. 6. Family to discuss hospice agencies with friends and also with their VA team. will call VA to see if other services / support are available for them 7. Plan of Care:update care mgt when they have made decision. Focus on QOL. continue UTI tx this admision but if he worsens acutely, move to comfort SHANNON I have updated primary team and care mgt. TS 50min, 45min face to face in ACP discussion mdm high Thank you for allowing us to participate in the ongoing care of this patient. Please don't hesitate to call or page with any additional concerns. Dr. Ariadna Arora DNP Director, Palliative Care
[2023-09-09] MEDS: LIDOCAINE 5% 1 PATCH TD STA (15:09)
--- NOTE | 2023-09-09 17:28 | Hospitalist Progress Note ---
Date of Service September 09, 2023 Assessment & Plan (1) Goals of care, counseling/discussion: Plan: Discharged on 09/05 from [facility] to [facility] poststroke Appeared altered/lethargic [facility] transferred to emergency department on 09/07/[address] revealed subacute appearing right-sided subdural hematoma measuring up to 10 mm; scattered subarachnoid hemorrhages Recent discharge from [facility] with monitoring and improvement in cognition Discussion of CT scan from 09 06 with [facility], no surgical intervention recommended d/t thrombocytopenia A/P CT revealed cirrhosis with splenomegaly and ascites; numerous splenic infarcts Patient's /POA (Betty) and daughter are present at the bedside, endorses wishes not to pursue aggressive care Palliative care consult ordered Drywall Finisher consulted Hematology/oncology consult (patient follows with ) Acetaminophen 500 mg p.o. q12h for pain control A.m. CBC, BMP; patient is amenable to having daily blood draws until UTI clears, then please discontinue In the event of a catastrophic deterioration, both the patient and patient's /POA would like him to be comfort measures only with initiation of inpatient hospice care. 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 mucinous adenocarcinoma (4) Myelodysplastic syndrome: Plan: Low-grade Noted on bone marrow biopsy done at [facility] on Saturday 09/02, per patient's Plan DNR/DNI VTE PPx: Teds due to thrombocytopenia Admission and Anticipated Discharge Date Admission Date: September 07, 2023 Subjective pt is pleasant and in not distress. smiles makes attempts at conversation recognizes and daughter Physical Exam Physical Exam: awake and lethargic falls asleep easily family at bedside Results & Data Results & Data Vital Signs (Past 12 Hours) Vital Signs Temp Pulse Resp BP BP Pulse Ox O2 Del Method 09/09/23 14:34 98.1 F 69 16 145/84 H 93 Room Air 09/09/23 07:15 97.9 F 66 16 133/53 L 94 Room Air PG Care Time/CCT Total # of Minutes Spent Total Time Spent with Patient: Total time spent is greater than 50% in coordination of care (as documented) at patient's floor/unit and/or counseling patient: Coding Level of Care Code 91839 SUB INP/OBS CARE 2/35MIN Diagnoses Goals of care, counseling/discussion Z71.89 UTI (urinary tract infection) N39.0 Primary cancer of left upper lobe of lung C34.12 Myelodysplastic syndrome D46.9
[2023-09-10] MEDS ORDERED: MoRPHine SULFATE 4 MG/ML 1 ML CARP\\VIAL IV PRN (08:30)
[2023-09-10] MEDS ORDERED: LORazepam 0.25 MG in SYRINGE 0.125 ML IV PRN (08:37)
[2023-09-10] MEDS: ACETAMINOPHEN 1000 MG/100 ML IV IV ONE (08:45)
[2023-09-10] MEDS ORDERED: ONDANSETRON 4 MG OD TAB SL PRN (15:33)
[2023-09-10] MEDS ORDERED: GLYCOPYRROLATE 0.2 MG/ML VIAL IV PRN (15:33)
[2023-09-10] MEDS ORDERED: LORazepam 0.5 MG in SYRINGE 0.25 ML IV PRN (15:33)
[2023-09-10] MEDS ORDERED: ONDANSETRON INJ 2 MG/ML 2 ML VIAL IV PRN (15:33)
[2023-09-10] MEDS ORDERED: LORazepam 0.5 MG TAB PO PRN (15:33)
--- NOTE | 2023-09-10 15:35 | Hospitalist Progress Note ---
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 q12h for pain control A.m. CBC, BMP; patient is amenable to having daily blood draws until UTI clears, then please discontinue In the event of a catastrophic deterioration, both the patient and patient's /POA would like him to be comfort measures only with initiation of inpatient hospice care. 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 mucinous adenocarcinoma (4) Myelodysplastic syndrome: Plan: Low-grade Noted on bone marrow biopsy done at [facility] on Saturday 09/02, per patient's Plan DNR/DNI VTE PPx: Teds due to thrombocytopenia Admission and Anticipated Discharge Date Admission Date: September 07, 2023 Subjective Code purple called this morning approximate 915 AM Patient was more lethargic than usual vital signs are however were stable is at the bedside and he confirms wishes for comfort care measures. Patient was able to respond and we can voice Physical Exam Physical Exam: awake and lethargic falls asleep easily family at bedside Results & Data Results & Data Vital Signs (Past 12 Hours) Vital Signs Temp Pulse Resp BP Pulse Ox O2 Del Method O2 Flow Rate 09/10/23 14:33 99.1 F 79 16 134/73 93 Nasal Cannula 2 09/10/23 08:10 70 130/50 L 98 Nasal Cannula 2 09/10/23 08:05 Nasal Cannula 2 09/10/23 07:54 98.4 F 73 16 130/62 88 L Room Air PG Care Time/CCT Total # of Minutes Spent Total Time Spent with Patient: Total time spent is greater than 50% in coordination of care (as documented) at patient's floor/unit and/or counseling patient: Coding Level of Care Code 63014 SUB INP/OBS CARE 3/50MIN Diagnoses Goals of care, counseling/discussion Z71.89 UTI (urinary tract infection) N39.0 Primary cancer of left upper lobe of lung C34.12 Myelodysplastic syndrome D46.9
[2023-09-10] MEDS: ACETAMINOPHEN 1,000 MG/100 ML VIAL IV PRN (16:58)
[2023-09-11] MEDS: MoRPHine SULFATE 2 MG/ML CARP IV PRN (03:35)
--- NOTE | 2023-09-11 16:21 | Hospitalist Progress Note ---
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 q12h for pain control A.m. CBC, BMP; patient is amenable to having daily blood draws until UTI clears, then please discontinue In the event of a catastrophic deterioration, both the patient and patient's /POA would like him to be comfort measures only with initiation of inpatient hospice care. 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 mucinous adenocarcinoma (4) Myelodysplastic syndrome: Plan: Low-grade Noted on bone marrow biopsy done at [facility] on Saturday 09/02, per patient's Plan DNR/DNI VTE PPx: Teds due to thrombocytopenia Admission and Anticipated Discharge Date Admission Date: September 07, 2023 Subjective pt is awake and smiling surrounded by family, no distress at this time looking forward to go home 09/12/23 Physical Exam Physical Exam: awake and less lethargic no immediate distress or needs family at bedside Results & Data Results & Data Vital Signs (Past 12 Hours) Vital Signs O2 Del Method O2 Flow Rate 09/11/23 07:59 Nasal Cannula 2 PG Care Time/CCT Total # of Minutes Spent Total Time Spent with Patient: Total time spent is greater than 50% in coordination of care (as documented) at patient's floor/unit and/or counseling patient: Coding Level of Care Code 22166 SUB INP/OBS CARE Diagnoses Goals of care, counseling/discussion Z71.89 UTI (urinary tract infection) N39.0 Primary cancer of left upper lobe of lung C34.12 Myelodysplastic syndrome D46.9
== END 2023-09-12 12:58 | disposition hospice, inpatient (51) | DRG 689 ==
LOC: ED 10:18 → 3W 14:42 → SUATTDRO 14:42 → 3W 16:57